=== PATIENT | male | born 1950 | race Caucasian/White ===

== ENCOUNTER 2016-10-06 22:45 | Observation (INO) | payer BC ==
[2016-10-06 22:51] VITALS: BMI 37.5
[2016-10-06] MEDS ORDERED: morphine CARPU-JECT 4 MG/1 ML DISP.SYRIN IVPUSH ONE (23:07)
--- NOTE | 2016-10-06 23:07 | PDOC ---
History of Present Illness - General History Source: Patient Exam Limitations: No Limitations - History of Present Illness Initial Comments: 10/06/16 23:53 The patient is a 65 year old male, with a significant past medical history of testicular cancer, [place], CAD, TIA (05/2011), IDDM, GERD, hypertension, hyperlipidemia, kidney stones, who presents to the emergency department complaining of chest pain that began at approximately 20:00. The patient reports he was sleeping when suddenly the pain woke him up from sleep. At the time which his chest pain began he reports taking 2 aspirin with relief of symptoms. Prior to presentation this evening he started to develop the pain a little more intensely. He describes the pain as a pressure that is localized at the left sternal border, radiating into his left shoulder, but not down his left arm. The patient denies any shortness of breath, palpitations, diaphoresis , lower extremity edema, lightheadedness, or dizziness. The patient rates his pain with inspiration as a 6/10 and with expiration a 4/10. The patient states he has been feeling like he has a cold this entire winter. He reports following up with his Dr. Kurtz(PCP), Dr. Dodson (Rose Grower), and Dr. Paulino ( [facility]) because he has been frequently feeling ill. He currently denies any fever, chills, sore throat, cough, or headache. He denies any nausea , vomiting, diarrhea, or constipation. He denies any recent travel or sick contacts. Allergies: Penicillins, [tryptophan], [aspartame] Past Surgical History: Herniated disc, brain surgery Social History: Non-smoker. Denies alcohol or drug use. PCP: Dr. Kurtz Rose Grower: Dr. Dodson GI: Dr. Paulino <Colton Garcia - Last Filed: 10/06/16 23:59> - General History Source: Patient <Peter Dennison - Last Filed: 10/07/16 01:39> - General Chief Complaint: Chest Pain Stated Complaint: CHEST PAIN Time Seen by Provider: 10/06/16 23:07 Past History <Colton Garcia - Last Filed: 10/06/16 23:59> - Past Medical History Anemia: No Asthma: No Cancer: Yes (TESTICULAR) Cardiac Disorders: Yes ([place]) CVA: Yes (TIA 05/2011) COPD: No CHF: No Dementia: No Diabetes: Yes (IDDM) GI Disorders: Yes (GASTRITIS, SPASTIC COLON, GERD; COLON POLYPS) Disorders: No HTN: Yes Hypercholesterolemia: Yes Kidney Stones: Yes Liver Disease: No Seizures: No Thyroid Disease: No - Surgical History Cardiac Surgery: No Cholecystectomy: Yes Lung Surgery: No Neurologic Surgery: Yes (HERNIATED DISC; BRAIN SURGERY INFANT) Orthopedic Surgery: Yes (KNEE ARTHROSCOPY, RIGHT) - Immunization History Immunization Up to Date: Yes - Psycho/Social/Smoking Cessation Hx Anxiety: No Suicidal Ideation: No Smoking Status: No Smoking History: Never smoked Have you smoked in the past 12 months: No Number of Cigarettes Smoked Daily: 0 If you are a former smoker, when did you quit?: 1980 Cigars Per Day: 0 Information on smoking cessation initiated: No Hx Alcohol Use: No Drug/Substance Use Hx: No Substance Use Type: None Hx Substance Use Treatment: No <Peter Dennison - Last Filed: 10/07/16 01:39> - Past Medical History Allergies/Adverse Reactions: Allergies Allergy/AdvReac Type Severity Reaction Status Date / Time Penicillins Allergy Rash Verified 10/06/16 22:46 ASPARTANE Allergy Severe HEADACHE Uncoded 10/06/16 22:46 TRYPTOPHAN Allergy Intermediate DIARRHEA/VO Uncoded 10/06/16 22:46 MITING Home Medications: Ambulatory Orders Amlodipine Besylate [Norvasc -] 5 mg PO DAILY 09/20/15 Aspirin [ASA -] 81 mg PO DAILY 09/20/15 Atorvastatin Ca [Lipitor -] 40 mg PO HS 09/20/15 Carvedilol 25 mg PO BID 09/20/15 Cholecalciferol (Vitamin D3) [D-2000] 5,000 unit PO DAILY 09/20/15 Gabapentin [Neurontin] 300 mg PO BID 09/20/15 Insulin (Levemir) [Levemir Vial -] 35 units SQ DAILY 09/20/15 Insulin (Levemir) [Levemir Vial -] 50 unit SQ HS 09/20/15 Ramipril 10 mg PO DAILY 09/20/15 Review of Systems - Review of Systems Able to Perform ROS?: Yes Comments:: 10/06/16 23:55 CONSTITUTIONAL: Absent: fever, no chills, no fatigue EYES: Absent: visual changes ENT: Absent: ear pain, no sore throat CARDIOVASCULAR: Present: +chest pain at left sternal border radiating into left shoulder Absent: syncope, palpitations, irregular heart rate, lightheadedness, peripheral edema RESPIRATORY: Absent: cough, shortness of breath, dyspnea with exertion, orthopnea, wheezing, stridor, hemoptysis GI: Absent: abdominal pain, no nausea, no vomiting, no constipation, no diarrhea GENITOURINARY: Absent: dysuria, no frequency, no hematuria MUSKULOSKELETAL: Absent: back pain, no arthralgia, no myalgia SKIN: Absent: rash NEURO: Absent: headache <Garcia,Giomilsy - Last Filed: 10/06/16 23:59> *Physical Exam - Vital Signs Last Vital Signs Temp Pulse Resp BP Pulse Ox 97.6 F 97 H 14 178/88 98 10/06/16 22:47 10/06/16 22:47 10/06/16 22:47 10/06/16 22:47 10/06/16 22:47 - Physical Exam Comments: 10/06/16 23:56 GENERAL: Well developed, well nourished. Awake and alert. No acute distress. Morbidly obese. Appears older than stated age. HEENT: Normocephalic, atraumatic. PERRLA, EOMI. No conjunctival pallor. Sclera are non- icteric. Moist mucous membranes. Oropharynx is clear. NECK: Supple. Full ROM. No JVD. Carotid pulses 2+ and symmetric, without bruits. No thyromegaly. No lymphadenopathy. CARDIOVASCULAR: Regular rate and rhythm. No murmurs, rubs, or gallops. Distal pulses are 2+ and symmetric. PULMONARY: No evidence of respiratory distress. Lungs clear to auscultation bilaterally. No wheezing, rales or rhonchi. ABDOMINAL: Soft. Non-tender. Non-distended. No rebound or guarding. No organomegaly. Normoactive bowel sounds. MUSCULOSKELETAL Normal range of motion at all joints. No bony deformities or tenderness. No CVA tenderness. EXTREMITIES: No cyanosis. No clubbing. No edema. No calf tenderness. SKIN: Warm and dry. Normal capillary refill. No rashes. No jaundice. NEUROLOGICAL: Alert, awake, appropriate. Cranial nerves 2-12 intact. No deficits to light touch and temperature in face, upper extremities and lower extremities. No motor deficits in the in face, upper extremities and lower extremities. Normoreflexic in the upper and lower extremities. Normal speech. Toes are down- going bilaterally. Gait is normal without ataxia. PSYCHIATRIC: Cooperative. Good eye contact. Appropriate mood and affect. <Colton Garcia - Last Filed: 10/06/16 23:59> - Vital Signs Last Vital Signs Temp Pulse Resp BP Pulse Ox 97.6 F 97 H 14 178/88 98 10/06/16 22:47 10/06/16 22:47 10/06/16 22:47 10/06/16 22:47 10/06/16 22:47 <Peter Dennison - Last Filed: 10/07/16 01:39> Heart Score/ECG Review - ECG Impressions Comment:: 10/06/16 23:59 Vent. Rate: 84 bpm IMPRESSION: Normal sinus rhythm. Incomplete right bundle branch block. <Colton Garcia - Last Filed: 10/06/16 23:59> - History History: Moderately suspicious - Electrocardiogram EKG: Non specific repolarization disturbance - Age Age: 45-65 - Risk Factors Risk Factors Heart Score: Yes Hx Hypercholesterolemia, Yes Hx Hypertension, Yes Positive family hx of cardiac disease, Yes Hx Obesity Based on the list above the patient has:: >/=3 risk factors or Hx atherosclerotic disease - Troponin Troponin: </= normal limit - Score Heart Score - Total: 5 <Peter Dennison - Last Filed: 10/07/16 01:39> ED Treatment Course - LABORATORY CBC & Chemistry Diagram: 10/06/16 23:40 10/06/16 23:40 - Medications Given in the ED: ED Medications Discontinued Medications Generic Name Dose Route Start Last Admin Trade Name Freq PRN Reason Stop Dose Admin Morphine Sulfate 4 mg 10/06/16 23:07 10/06/16 23:53 Morphine Injection - IVPUSH 10/06/16 23:08 4 mg ONCE ONE Administration Ondansetron HCl 4 mg 10/06/16 23:08 10/06/16 23:53 Zofran Injection IVPUSH 10/06/16 23:09 4 mg ONCE STA Administration <Colton Garcia - Last Filed: 10/06/16 23:59> - LABORATORY CBC & Chemistry Diagram: 10/06/16 23:40 10/06/16 23:40 <Peter Dennison - Last Filed: 10/07/16 01:39> Medical Decision Making - Medical Decision Making 10/07/16 01:38 Dr. Dennison: The scribe's documentation has been prepared under my direction and personally reviewed by me in its entirery. I confirm that the note above accurately reflects all work, treatment, procedures, and medical decision making performed by me. Patient still has slight discomfort despite negative cardiac enzymes. We'll admit to telemetry <Peter Dennison - Last Filed: 10/07/16 01:39> *DC/Admit/Observation/Transfer - Attestations Scribe Attestion: 10/06/16 23:59 Documentation prepared by Colton Garcia, acting as medical collector for Peter Dennison DO. <Colton Garcia - Last Filed: 10/06/16 23:59> - Discharge Dispostion Admit: Yes <Peter Dennison - Last Filed: 10/07/16 01:39> Diagnosis at time of Disposition: Chest pain Qualifiers: Chest pain type: precordial chest pain Qualified Code(s): R07.2 - Precordial pain - Referrals Referrals: Malcolm Paulino MD [Primary Care Provider] -
[2016-10-06] MEDS ORDERED: ONDANSETRON 4 MG/2 ML VIAL IVPUSH STA (23:08)
[2016-10-06] MEDS ORDERED: morphine CARPU-JECT 4 MG/1 ML DISP.SYRIN ONE (23:29)
[2016-10-06] MEDS ORDERED: ONDANSETRON 4 MG/2 ML VIAL ONE (23:29)
[2016-10-06 23:57] LABS: BASOPHIL 0.7 % (0-2.0); EOSINOPHIL 3.4 % (0-4.5); MCH 28.4 pg (25.7-33.7); MCHC 33.9 g/dl (32.0-35.9); MEAN CELL VOLUME 83.8 fl (80-96); MEAN PLT VOLUME 7.7 fl (7.5-11.1); NEUTROPHILS 65.5 % (42.8-82.8); PLATELET COUNT 261 K/MM3 (134-434); RDW 15.7 % (11.9-15.9); WHITE BLOOD COUNT 11.4 K/mm3 (4.0-10.0)
[2016-10-07 00:19] LABS: INR 1.04 (0.82-1.09); PROTHROMBIN TIME (PATIENT) 11.4 SEC (9.98-11.88)
[2016-10-07 00:22] LABS: ACTIVATED PTT 33.7 SECONDS (26.9-34.4)
[2016-10-07 01:13] LABS: ALBUMIN 3.7 g/dl (3.4-5.0); ANION GAP 10 (8-16); BILIRUBIN,TOTAL 0.5 mg/dL (0.2-1.0); CALCIUM 9.7 mg/dL (8.5-10.1); CO2 30 mmol/L (21-32); CREATININE 1.4 mg/dL (0.7-1.3); GLUCOSE,RANDOM 156 mg/dL (74-106); MAGNESIUM 1.9 mg/dL (1.8-2.4); SGOT/AST 10 U/L (15-37); SGPT/ALT 26 U/L (12-78); TOT PROT 7.3 g/dl (6.4-8.2)
[2016-10-07 01:15] LABS: ALK PHOS 90 U/L (45-117); TROPONIN I < 0.02 ng/ml (0.00-0.05)
--- NOTE | 2016-10-07 02:33 | PN ---
Teaching Attending Note Name of Resident: Cedric Meyer
--- NOTE | 2016-10-07 02:52 | HP ---
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 He states the pain began between 8 and 9pm; he took 2 baby ASA which initially helped the pain, but then the patient got up and went to the bathroom and the pain recurred. He states that initially the pain was 9/10 and is now 2/10. The pain is now in his left side below his axilla. Early it was left sternal border radiating to his left shoulder but not down his arm. He denies palpitations, SOB, nausea or vomiting. 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) c-spine surgery x 4 L spine surgery x 1 R orchiectomy Social History: Smoking: pt denies Alcohol: pt denies Drugs: pt denies current use, did drugs in the 70s Family History: mother late 80s, DM/[place] father age 95 during a 4vCABG 1 sister with thyroid disease Allergies Penicillins Allergy (Verified 10/06/16 22:46) Rash ASPARTANE Allergy (Severe, Uncoded 10/06/16 22:46) HEADACHE TRYPTOPHAN Allergy (Intermediate, Uncoded 10/06/16 22:46) DIARRHEA/VOMITING HOME MEDICATIONS: 3 Medication Instructions Recorded Amlodipine Besylate [Norvasc -] 5 mg PO DAILY 09/20/15 Aspirin [ASA -] 81 mg PO DAILY 09/20/15 Atorvastatin Ca [Lipitor -] 40 mg PO HS 09/20/15 Carvedilol 25 mg PO BID 09/20/15 Cholecalciferol (Vitamin D3) 5,000 unit PO DAILY 09/20/15 [D] Gabapentin [Neurontin] 300 mg PO BID 09/20/15 Insulin (Levemir) [Levemir Vial -] 35 units SQ DAILY 09/20/15 Insulin (Levemir) [Levemir Vial -] 50 unit SQ HS 09/20/15 Ramipril 10 mg PO DAILY 09/20/15 REVIEW OF SYSTEMS CONSTITUTIONAL: Absent: fever, chills, diaphoresis, generalized weakness, malaise, loss of appetite, weight change HEENT: Absent: rhinorrhea, nasal congestion, throat pain, throat swelling, difficulty swallowing, mouth swelling, ear pain, eye pain, visual changes CARDIOVASCULAR: Present: chest pain Absent: syncope, palpitations, irregular heart rate, lightheadedness, peripheral edema RESPIRATORY: Absent: cough, shortness of breath, dyspnea with exertion, orthopnea, wheezing, stridor, hemoptysis GASTROINTESTINAL: Absent: abdominal pain, abdominal distension, nausea, vomiting, diarrhea, constipation, melena, hematochezia GENITOURINARY: Absent: dysuria, frequency, urgency, hesitancy, hematuria, flank pain, genital pain MUSCULOSKELETAL: Absent: myalgia, arthralgia, joint swelling, back pain, neck pain SKIN: Absent: rash, itching, pallor HEMATOLOGIC/IMMUNOLOGIC: Absent: easy bleeding, easy bruising, lymphadenopathy, frequent infections ENDOCRINE: Absent: unexplained weight gain, unexplained weight loss, heat intolerance, cold intolerance NEUROLOGIC: Absent: headache, focal weakness or paresthesias, dizziness, unsteady gait, seizure, mental status changes, bladder or bowel incontinence PSYCHIATRIC: Absent: anxiety, depression, suicidal or homicidal ideation, hallucinations. PHYSICAL EXAMINATION Vital Signs - 24 hr 3 10/06/16 10/06/16 10/07/16 22:47 23:07 00:05 Temperature 97.6 F 98.1 F Pulse Rate 97 H Pulse Rate [ 92 H 89 Left] Respiratory 14 22 20 Rate Blood Pressure 178/88 Blood Pressure 178/65 141/77 [Right Arm] O2 Sat by Pulse 98 98 96 Oximetry (%) 3 10/07/16 10/07/16 10/07/16 00:30 01:38 02:08 Temperature Pulse Rate Pulse Rate [ 89 79 81 Left] Respiratory 20 20 20 Rate Blood Pressure Blood Pressure 164/77 158/63 150/68 [Right Arm] O2 Sat by Pulse 99 99 95 Oximetry (%) GENERAL: Awake, alert, and fully oriented, in no acute distress. HEAD: Normal with no signs of trauma. EYES: Pupils equal, round and reactive to light, extraocular movements intact, sclera anicteric, conjunctiva clear. No lid lag. EARS, NOSE, THROAT: Ears normal, nares patent, oropharynx clear without exudates. Moist mucous membranes. NECK: Normal range of motion, supple without lymphadenopathy, JVD, or masses. LUNGS: Breath sounds equal, clear to auscultation bilaterally. No wheezes, and no crackles. No accessory muscle use. HEART: Regular rate and rhythm, normal S1 and S2 without murmur, rub or gallop. + pain on palpation left chest wall ABDOMEN: Soft, nontender, not distended, normoactive bowel sounds, no guarding, no rebound, no masses. No hepatomegaly or splenomegaly. MUSCULOSKELETAL: Normal range of motion at all joints. No bony deformities or tenderness. No CVA tenderness. UPPER EXTREMITIES: 2+ pulses, warm, well-perfused. No cyanosis. No clubbing. Cap refill <2 seconds. No peripheral edema. LOWER EXTREMITIES: 2+ pulses, warm, well-perfused. No calf tenderness. 1+ edema B/L. NEUROLOGICAL: Cranial nerves II-XII intact. Normal speech. Normal gait. PSYCHIATRIC: Cooperative. Good eye contact. Appropriate mood and affect. SKIN: Warm, dry, normal turgor, no rashes or lesions noted. Laboratory Results - last 24 hr 3 10/06/16 10/06/16 10/06/16 10/06/16 23:40 23:40 23:40 23:54 WBC 11.4 H RBC 3.99 L Hgb 11.3 L Hct 33.4 L MCV 83.8 MCHC 33.9 RDW 15.7 Plt Count 261 MPV 7.7 Neutrophils % 65.5 Lymphocytes % 21.7 D Monocytes % 8.7 Eosinophils % 3.4 Basophils % 0.7 INR 1.04 PTT (Actin FS) 33.7 Sodium 139 Potassium 4.5 Chloride 99 Carbon Dioxide 30 Anion Gap 10 BUN 33 H Creatinine 1.4 H Creat Clearance w eGFR 51.02 Random Glucose 156 H D Calcium 9.7 Magnesium 1.9 Total Bilirubin 0.5 D AST 10 L ALT 26 Alkaline Phosphatase 90 Creatine Kinase 118 Troponin I < 0.02 D B-Natriuretic Peptide 112.51 Total Protein 7.3 Albumin 3.7 Blood Type A POSITIVE Antibody Screen Negative ECG: Sinus rhythm, rate 84, incomplete RBBB, no acute ST/T changes CXR: large heart, no obvious infiltrates or effusions, final read pending. HEART score: 5: moderately suspicious +1, ECG w/ nonspecific repolarization disturbance +1, age 65 +1, >3 risk factors, +2 ASSESSMENT/PLAN: 65yM with PMH [place], 4VCABG, HTN, HLD, TIA, DM2, hemorrhoids, colon polyps, spastic colon, testicular CA, kidney stones presented with chest pain. He is being admitted for observation and further workup. Chest pain r/o ACS - first troponin negative, trend x 2 more - recently had an echo at [facility], defer same at present - Cardiology consult - took ASA, beta melvin at home HTN - cont home medications - pt states he no longer takes ramipril. 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 Visit type - Emergency Visit Emergency Visit: Yes ED Registration Date: 10/07/16 Care time: The patient presented to the Emergency Department on the above date and was hospitalized for further evaluation of their emergent condition. - New Patient This patient is new to me today: Yes Date on this admission: 10/07/16 - Critical Care Critical Care patient: No
[2016-10-07 04:43] VITALS: TEMP 97.8
[2016-10-07] MEDS ORDERED: INSULIN DETEMIR 100 UNITS/ML MDV SQ SCH ×4 (07:00→22:00)
[2016-10-07 08:18] LABS: BASOPHIL 0.6 % (0-2.0); EOSINOPHIL 4.1 % (0-4.5); MCH 28.7 pg (25.7-33.7); MCHC 33.8 g/dl (32.0-35.9); MEAN PLT VOLUME 8.2 fl (7.5-11.1); NEUTROPHILS 62.5 % (42.8-82.8); PLATELET COUNT 261 K/MM3 (134-434); RDW 15.5 % (11.9-15.9); WHITE BLOOD COUNT 12.2 K/mm3 (4.0-10.0)
[2016-10-07 08:52] LABS: ANION GAP 10 (8-16); CALCIUM 9.7 mg/dL (8.5-10.1); CO2 29 mmol/L (21-32); CREATININE 1.5 mg/dL (0.7-1.3); GLUCOSE,RANDOM 167 mg/dL (74-106); PHOSPHOROUS 3.9 mg/dL (2.5-4.9); TROPONIN I < 0.02 ng/ml (0.00-0.05)
--- NOTE | 2016-10-07 09:46 | PN ---
Progress Note (short form) - Note Progress Note: Patient seen and examined Chart reviewed. Case well known to me. Episode of left anterior chest wall apin yesterday evening after awakening from a nap. Went to bathroom and experienced two episodes of pain in left upper anteriorchest radating through to the back and expanding out around the left anterior chest and somewhat down the left arm. Some initial nausea was noted, but no dyspnea, diaphoresis, palpitations or pre-syncope. Arm and chest discomfort not similar to previous cervical spine neuritic symptoms. Came to ER and is admitted for close observation. Initial EKG and and troponins are negative. Currently sitting up in bed w/o new chest discomfort. Selected Entries 10/07/16 10/07/16 03:30 06:00 Temperature 97.8 F Pulse Rate 86 Respiratory 20 Rate Blood Pressure 154/79 O2 Sat by Pulse 97 Oximetry (%) Oxygen Delivery Room Air Method Laboratory Tests 10/06/16 10/06/16 10/07/16 23:40 23:40 06:10 WBC 12.2 H Hgb 11.4 L Hct 33.8 L Plt Count 261 INR 1.04 PTT (Actin FS) 33.7 Sodium Potassium Chloride Carbon Dioxide BUN Creatinine Random Glucose Calcium Phosphorus Creatine Kinase Troponin I B-Natriuretic Peptide 112.51 10/07/16 06:10 WBC Hgb Hct Plt Count INR PTT (Actin FS) Sodium 139 Potassium 4.4 Chloride 100 Carbon Dioxide 29 BUN 34 H Creatinine 1.5 H Random Glucose 167 H Calcium 9.7 Phosphorus 3.9 Creatine Kinase 97 Troponin I < 0.02 B-Natriuretic Peptide chest Clear Cor RRR Abd Soft distended non-tender Central obesity Ext Mild edema Neuro No new focal deficit Assessment and Plan Chest pain syndrome Cardiologic follow-up [facility] H/O [place] CABAG x 4 vessels 09/2015 HTN Stable Review meds HPL Stable DM On coverage here H/O Carotid Endarterectomy C spine surgery x 4 L/S spine surgery x 1 H/O testicular cancer post right orchiectomy, lymphadenectomy and chemotherapy H/o TIA 2010 GERD Hemorrhoid surgery x 3 H/O colonic polyp IBS Renal stone Renal insufficiency Sees Dr Severino Recent d/c Ramipril Unsure of new Rx BUN/Cr 34/1.5 Migraine headaches Obesity Cholecystectomy B/L knee arthroscopies Observe on telemetry Await cardiology opinion regarding further diagnostic testing and/or therapy
[2016-10-07] MEDS ORDERED: ASPIRIN 81 MG CHEWABLE TABLETS PO SCH (10:00)
[2016-10-07] MEDS ORDERED: amLODIPine BESYLATE 5 MG TABLET (FP) PO SCH (10:00)
[2016-10-07] MEDS ORDERED: CHOLECALCIFEROL (VITAMIN D3) 1,000 UNIT TABLET (FP) PO SCH (10:00)
[2016-10-07] MEDS ORDERED: CARVEDILOL 25 MG TABLET (FP) PO SCH (10:00)
[2016-10-07] MEDS ORDERED: GABAPENTIN 300 MG CAPSULE (FP) PO SCH (10:00)
--- NOTE | 2016-10-07 10:07 | EKG ---
Test Reason : Blood Pressure : / mmHG Vent. Rate : 084 BPM Atrial Rate : 084 BPM P-R Int : 190 ms QRS Dur : 114 ms QT Int : 384 ms P-R-T Axes : 062 048 058 degrees QTc Int : 453 ms NORMAL SINUS RHYTHM INCOMPLETE RIGHT BUNDLE BRANCH BLOCK CANNOT RULE OUT ANTERIOR INFARCT , AGE UNDETERMINED ABNORMAL ECG WHEN COMPARED WITH ECG OF 21-SEP-2015 07:34, FUSION COMPLEXES ARE NO LONGER PRESENT PREMATURE VENTRICULAR COMPLEXES ARE NO LONGER PRESENT INCOMPLETE RIGHT BUNDLE BRANCH BLOCK IS NOW PRESENT Confirmed by ANDREA GORDON MD ([id number]) on 10/07/2016 10:07:02 AM Referred By: Confirmed By:ANDREA GORDON MD
[2016-10-07 11:10] LABS: URINE APPEARANCE CLEAR; URINE BILIRUBIN NEGATIVE (NEGATIVE); URINE BLOOD NEGATIVE (NEGATIVE); URINE COLOR YELLOW; URINE GLUCOSE (UA) NEGATIVE (NEGATIVE); URINE KETONE NEGATIVE (NEGATIVE); URINE LEUK ESTERASE NEGATIVE (NEGATIVE); URINE NITRITE NEGATIVE (NEGATIVE); URINE UROBILINOGEN NEGATIVE E.U./dl (0.2-1.0)
[2016-10-07 11:20] LABS: URINE PROTEIN 3+ (NEGATIVE)
[2016-10-07 11:38] LABS: GRANULAR CASTS 2 /lpf; URINE HYALINE CAST 38 /lpf; URINE MUCUS RARE; URINE RBC 2 /hpf (0-3); URINE WBC 2 /hpf (3-5)
--- NOTE | 2016-10-07 11:52 | CON.CARD ---
Cardiology Consult (text) - Consultation Consultation Note: Chief Complaint: cp History of Present Illness: 65 yo male here with cp. Has hx cad with nstemi 09/2015 and cath with severe dz so had cabgx4 at [facility] . Has been following with dr mckinney for cardio. Last night took a nap and then woke up and was walking inside and noticed sharp chest pain left chest, like a pencil stabbing him in one spot. Was severe so took asa and resolved. No associated sxs. No sob, palps, dizzy, loc, pnd, orthopnea. Cp returned later that night so came to ER. CP now resolved. Different sx then when had nstemi last year. Current cp sometimes worsened by deep breaths. PMH/PSH: HTN DM bleeding hemorrhoids cad/mi/cabg HPL fatty liver TIA 2000 CEA 2007 ckd remote ex-cig chronic c-spine disc dz/surgeries, L-spine dz/surgery--chronic pain OA with mult prior knee surgeries diverticulosis nephrolithiasis testicular Ca s/p chemo MONICO (mild-moderate 03/04 study) - Alcohol/Substance Use Hx Alcohol Use: No - Smoking History Smoking history: Never smoked Have you smoked in the past 12 months: No Aproximately how many cigarettes per day: 0 If you are a former smoker, when did you quit?: 1980 Home Medications - Allergies Allergies Allergy/AdvReac Type Severity Reaction Status Date / Time Penicillins Allergy Rash Verified 10/06/16 22:46 ASPARTANE Allergy Severe HEADACHE Uncoded 10/06/16 22:46 TRYPTOPHAN Allergy Intermediate DIARRHEA/VO Uncoded 10/06/16 22:46 MITING - Home Medications Home Medications Medication Instructions Recorded Amlodipine Besylate [Norvasc -] 5 mg PO DAILY 09/20/15 Aspirin [ASA -] 81 mg PO DAILY 09/20/15 Atorvastatin Ca [Lipitor -] 40 mg PO HS 09/20/15 Carvedilol 25 mg PO BID 09/20/15 Cholecalciferol (Vitamin D3) 5,000 unit PO DAILY 09/20/15 [D-1999] Gabapentin [Neurontin] 300 mg PO BID 09/20/15 Insulin (Levemir) [Levemir Vial -] 35 units SQ DAILY 09/20/15 Insulin (Levemir) [Levemir Vial -] 50 unit SQ HS 09/20/15 Ramipril 10 mg PO DAILY 09/20/15 Family Disease History - Family Disease History Family History: Denies (no cmp) Review of Systems - Review of Systems Constitutional: denies: Chills, Fever Eyes: denies: Eye Pain HENT: denies: Nasal Congestion Neck: denies: Stiffness Cardiovascular: denies: Palpitations Respiratory: denies: Orthopnea, PND Gastrointestinal: denies: Diarrhea, Rectal Bleeding Genitourinary: denies: Burning, Hematuria Musculoskeletal: denies: Muscle Pain Integumentary: denies: Rash Neurological: denies: Numbness, Seizure, Syncope Endocrine: denies: Excessive Sweating Hematology/Lymphatic: denies: Excessive Bleeding Vital Signs: Vital Signs Period Temp Pulse Resp BP Sys/Guo Pulse Ox Last 24 Hr 97.6 F-98.1 F 79-97 14-22 141-178/63-88 95-99 Constitutional: Yes: No Distress, Obese Eyes: No: Sclera Icterus HENT: No: Nasal Congestion Respiratory: Yes: CTA Bilaterally. No: Accessory Muscle Use, Rales, Wheezes Gastrointestinal: Yes: Normal Bowel Sounds. No: Distention, Hepatomegaly, Palpable Mass, Tenderness Cardiovascular: Yes: Regular Rate and Rhythm, +chest wall tenderness JVD: No Carotid Bruit: No PMI: Non-Displaced Heart Sounds: Yes: S1, S2. No: Gallop Murmur: No: Systolic Murmur, Diastolic Murmur Musculoskeletal: Yes: Other (No kyphosis) Extremities: No: Cool Edema: Yes (trace pretib) Peripheral Pulses: 2+ Left Carotid, 2+ Right Carotid, 2+ Left Doralis Pedis, 2+ Right Dorsalis Pedis Integumentary: No: Jaundice diaphoresis Neurological: Yes: Alert, Oriented (x3) Psychiatric: No: Agitated - Other Data Labs, Other Data: Laboratory Last Values WBC 12.2 K/mm3 (4.0-10.0) H 10/07/16 06:10 RBC 3.98 M/mm3 (4.00-5.60) L 10/07/16 06:10 Hgb 11.4 GM/dL (11.7-16.9) L 10/07/16 06:10 Hct 33.8 % (35.4-49) L 10/07/16 06:10 MCV 85.0 fl (80-96) 10/07/16 06:10 MCHC 33.8 g/dl (32.0-35.9) 10/07/16 06:10 RDW 15.5 % (11.9-15.9) 10/07/16 06:10 Plt Count 261 K/MM3 (134-434) 10/07/16 06:10 MPV 8.2 fl (7.5-11.1) 10/07/16 06:10 Neutrophils % 62.5 % (42.8-82.8) 10/07/16 06:10 Lymphocytes % 25.2 % (8-40) 10/07/16 06:10 Monocytes % 7.6 % (3.8-10.2) 10/07/16 06:10 Eosinophils % 4.1 % (0-4.5) 10/07/16 06:10 Basophils % 0.6 % (0-2.0) 10/07/16 06:10 INR 1.04 (0.82-1.09) 10/06/16 23:40 PTT (Actin FS) 33.7 SECONDS (26.9-34.4) 10/06/16 23:40 Sodium 139 mmol/L (136-145) 10/07/16 06:10 Potassium 4.4 mmol/L (3.5-5.1) 10/07/16 06:10 Chloride 100 mmol/L (98-107) 10/07/16 06:10 Carbon Dioxide 29 mmol/L (21-32) 10/07/16 06:10 Anion Gap 10 (8-16) 10/07/16 06:10 BUN 34 mg/dL (7-18) H 10/07/16 06:10 Creatinine 1.5 mg/dL (0.7-1.3) H 10/07/16 06:10 Creat Clearance w eGFR 51.02 (>60) 10/06/16 23:40 POC Glucometer 169 UNITS (()) 10/07/16 10:20 Random Glucose 167 mg/dL (74-106) H 10/07/16 06:10 Calcium 9.7 mg/dL (8.5-10.1) 10/07/16 06:10 Phosphorus 3.9 mg/dL (2.5-4.9) 10/07/16 06:10 Magnesium 1.9 mg/dL (1.8-2.4) 10/06/16 23:40 Total Bilirubin 0.5 mg/dL (0.2-1.0) D 10/06/16 23:40 AST 10 U/L (15-37) L 10/06/16 23:40 ALT 26 U/L (12-78) 10/06/16 23:40 Alkaline Phosphatase 90 U/L (45-117) 10/06/16 23:40 Creatine Kinase 97 IU/L (39-308) 10/07/16 06:10 Troponin I < 0.02 ng/ml (0.00-0.05) 10/07/16 06:10 B-Natriuretic Peptide 112.51 pg/ml (5-125) 10/06/16 23:40 Total Protein 7.3 g/dl (6.4-8.2) 10/06/16 23:40 Albumin 3.7 g/dl (3.4-5.0) 10/06/16 23:40 Urine Color Yellow 10/07/16 10:48 Urine Appearance Clear 10/07/16 10:48 Urine pH 5.0 (5.0-8.0) 10/07/16 10:48 Ur Specific [place] 1.018 (1.001-1.035) 10/07/16 10:48 Urine Protein 3+ (NEGATIVE) H 10/07/16 10:48 Urine Glucose (UA) Negative (NEGATIVE) 10/07/16 10:48 Urine Ketones Negative (NEGATIVE) 10/07/16 10:48 Urine Blood Negative (NEGATIVE) 10/07/16 10:48 Urine Nitrite Negative (NEGATIVE) 10/07/16 10:48 Urine Bilirubin Negative (NEGATIVE) 10/07/16 10:48 Urine Urobilinogen Negative E.U./dl (0.2-1.0) 10/07/16 10:48 Ur Leukocyte Esterase Negative (NEGATIVE) 10/07/16 10:48 Urine RBC 2 /hpf (0-3) 10/07/16 10:48 Urine WBC 2 /hpf (3-5) 10/07/16 10:48 Hyaline Casts 38 /lpf 10/07/16 10:48 Granular Casts 2 /lpf 10/07/16 10:48 Urine Mucus Rare 02/17/17 10:48 Blood Type A POSITIVE 10/06/16 23:54 Antibody Screen Negative 10/06/16 23:54 ecg 10/06/16: sr, nl intervals, IRBBB, no ischemic changes cxr: clear lungs tele: sr Echo 09/2015: nl LVEF, no RWMAs (normal RV, normal valve fxn) mibi 01/2016 ([facility]): TDS, "probably normal" Assessment/Plan cp: -atypical cp, different than prior IL, has msk features -ce's neg here, cp resolved, ecg w/o ischemic changes -prior stress test was TDS, read as "probably normal", but this current cp is different quality than before -given his cad hx and new cp will check mibi today. If benign then ok for dc from cardiac pov. cad s/p nstemi, cabg: -as above -normal lvef -cont home bb, ccb, statin, asa HTN: -cont home meds hld: -cont statin ckd: -cr at baseline
[2016-10-07] MEDS: INSULIN SLIDING SCALE (NOVOLOG) 1 VIAL SQ SCH ×2 (11:58→17:02)
[2016-10-07] MEDS ORDERED: DIPYRIDAMOLE STRESS TEST 50 MG in DEXTROSE 5%-WATER - 40 ML IVPB ONE (13:15)
[2016-10-07 15:28] VITALS: BP 120/54; PULSE 87
[2016-10-07] MEDS ORDERED: OMEGA-3 ACID ETHYL ESTERS (FATTY-ACIDS) 1 GM CAPSULE (FP) PO SCH (22:00)
[2016-10-07] MEDS ORDERED: ATORVASTATIN CA 40 MG TABLET (FP) PO SCH (22:00)
== END 2016-10-07 17:39 | disposition home or self-care (01) ==
LOC: JER 22:45 → JERBED 10-07 01:46 → INTOOBSV 10-07 01:46 → J4W 10-07 04:23
PROVIDERS: ADMIT Internal Medicine; ATTEND Internal Medicine
DX: R07.89 Other chest pain (principal); I25.10 Atherosclerotic heart disease of native coronary artery without angina pectoris; K21.9 Gastro-esophageal reflux disease without esophagitis; E78.5 Hyperlipidemia, unspecified; I25.2 Old myocardial infarction; Z86.73 Personal history of transient ischemic attack (TIA), and cerebral infarction without residual deficits; Z88.0 Allergy status to penicillin; Z79.4 Long term (current) use of insulin; E11.9 Type 2 diabetes mellitus without complications; K58.9 Irritable bowel syndrome, unspecified; E66.9 Obesity, unspecified; G43.909 Migraine, unspecified, not intractable, without status migrainosus; K76.0 Fatty (change of) liver, not elsewhere classified; I12.9 Hypertensive chronic kidney disease with stage 1 through stage 4 chronic kidney disease, or unspecified chronic kidney disease; N18.9 Chronic kidney disease, unspecified; Z68.37 Body mass index [BMI] 37.0-37.9, adult
CPT/HCPCS: 36415; 71020-TC; 78452-TC; 80048; 80053; 81003; 81015; 82550; 83735; 83880; 84100; 84484; 85025; 85610; 85730; 86850; 86900; 86901; 93005; 93010; 93017; 99285-25; A9502; G0378; J1245

== ENCOUNTER 2017-02-14 23:30 | Observation (INO) | payer BC, OTHER ==
--- NOTE | 2017-02-15 00:44 | PDOC ---
History of Present Illness - General Chief Complaint: Chest Pain Stated Complaint: CHEST PAIN Time Seen by Provider: 02/14/17 23:56 History Source: Patient Exam Limitations: No Limitations - History of Present Illness Initial Comments: 02/15/17 00:44 66yo Male patient w/ PmHx: [place], CAD, TIA (2011), CABG (2016), IDDM, GERD, HTN, HLD, Renal Colic presents to ED c/o chest pain that began at 11pm last night. Patient states he was removing his nitroglycerin patch around 9pm when symptoms began. He states taking 0.4 SL Nitro x 1 with no relief. Patient report 5/10 chest pain with 2/10 left arm pain that continues. He denies n/v/d, back pain, fever, cough, congestion, diff breathing, or any other complaints at this time. Dr. Dodson (Cardiology) Dr. Kurtz (PCP) Dr. Paulino (Gastroenterology) Presenting Symptoms: Chest Pain Timing/Duration: reports: constant Severity/Quality: reports: mild. denies: moderate, severe, aching, burning, dull, ingestion, pressure, sharp, stabbing, tearing, tightness, other Location: reports: substernal. denies: central, epigastric, shoulder, back, abdomen, other Chest Pain Radiation: reports: arms (Left). denies: no radiation, jaw, neck, shoulders, back, sternal notch, epigastric, other Activities at Onset: reports: rest. denies: none, exertion, emotional upset, sleep, no specific activity, eating, working, sexual intercourse, other Nitro Today/Relief: Yes: 0.4 mg x 1. No: no nitro taken today, 0.4 mg x 2, 0.4 mg x 3, 0.4 mg x 4, provided by EMS, provided by ED, provided at home, no relief , mild relief, complete relief Past History - Travel Traveled outside of the country in the last 30 days: No Close contact w/someone who was outside of country & ill: No - Past Medical History Allergies/Adverse Reactions: Allergies Allergy/AdvReac Type Severity Reaction Status Date / Time Penicillins Allergy Rash Verified 02/14/17 23:39 sumatriptan [From Imitrex] Allergy Verified 02/14/17 23:40 sumatriptan succinate Allergy Verified 02/14/17 23:40 [From Imitrex] ASPARTANE Allergy Severe HEADACHE Uncoded 02/14/17 23:39 TRYPTOPHAN Allergy Intermediate DIARRHEA/VO Uncoded 02/14/17 23:39 MITING Home Medications: Ambulatory Orders Amlodipine Besylate [Norvasc -] 10 mg PO DAILY 09/20/15 Aspirin [ASA -] 81 mg PO DAILY 09/20/15 Atorvastatin Ca [Lipitor] 40 mg PO HS 09/20/15 Carvedilol 6.25 mg PO BID 09/20/15 Cholecalciferol (Vitamin D3) [D3-2000] 5,000 unit PO DAILY 09/20/15 Gabapentin [Neurontin] 300 mg PO DAILY 09/20/15 Insulin (Levemir) [Levemir Vial] 64 unit SQ BID 09/20/15 Nitroglycerin Sublingual [Nitrostat -] 0.4 mg SL [id number] PRN #30 tab 10/07/16 [place]-3 Acid Ethyl Esters [Lovaza -] 2 gm PO HS cap 10/07/16 Exenatide [Byetta] 10 mcg SQ BID 02/14/17 Furosemide [Lasix -] 40 mg PO BID 02/14/17 Losartan Potassium [Cozaar -] 25 mg PO DAILY 02/14/17 Metformin HCl [Glucophage -] 500 mg PO BID 02/14/17 Nortriptyline HCl [Pamelor -] 50 mg PO HS 02/14/17 Oxycodone HCl [Roxicodone -] 10 mg PO Q4H PRN 02/14/17 Anemia: No Asthma: No Cancer: Yes (TESTICULAR) Cardiac Disorders: Yes ([place]) CVA: Yes (TIA 05/2011) COPD: No CHF: No Dementia: No Diabetes: Yes (IDDM) GI Disorders: Yes (GASTRITIS, SPASTIC COLON, GERD; COLON POLYPS) Disorders: No HTN: Yes Hypercholesterolemia: Yes Kidney Stones: Yes Liver Disease: No Seizures: No Thyroid Disease: No - Surgical History Cardiac Surgery: No Cholecystectomy: Yes Lung Surgery: No Neurologic Surgery: Yes (HERNIATED DISC; BRAIN SURGERY INFANT) Orthopedic Surgery: Yes (KNEE ARTHROSCOPY, RIGHT) - Immunization History Immunization Up to Date: Yes - Psycho/Social/Smoking Cessation Hx Anxiety: No Suicidal Ideation: No Smoking Status: No Smoking History: Never smoked Have you smoked in the past 12 months: No Number of Cigarettes Smoked Daily: 0 If you are a former smoker, when did you quit?: 1981 Cigars Per Day: 0 Information on smoking cessation initiated: No Hx Alcohol Use: No Drug/Substance Use Hx: No Substance Use Type: None Hx Substance Use Treatment: No Cardiac Specific PMH - Complaint Specific PMHX Abdominal Aortic Aneurysm: No Angina: No Cardiac Arrhythmia: No Cardiac Stent: No GERD: No Myocardial Infarction: Yes Pacemaker: No Pulmonary Embolus: No Valvular Heart Disease: No Peripheral Vascular Disease: No Review of Systems - Review of Systems Able to Perform ROS?: Yes Is the patient limited Lao proficient: No Cardiac (ROS): Yes: Chest Pain All Other Systems: Reviewed and Negative *Physical Exam - Vital Signs Last Vital Signs Temp Pulse Resp BP Pulse Ox 98.7 F 82 18 157/59 98 02/14/17 23:33 02/14/17 23:33 02/14/17 23:33 02/14/17 23:33 02/14/17 23:58 - Physical Exam General Appearance: Yes: Nourished, Appropriately Dressed. No: Apparent Distress, Mild Distress, Moderate Distress, Severe Distress Neck: positive: Trachea midline, Supple. negative: Rigid, Stridor, Lymphadenopathy (R), Lymphadenopathy (L), Tender lateral, Tender midline Respiratory/Chest: positive: Lungs Clear, Normal Breath Sounds. negative: Chest Tender, Respiratory Distress, Accessory Muscle Use, Labored Respiration, Rapid RR, Rhonchi, Stridor, Wheezing Cardiovascular: positive: Regular Rhythm, Regular Rate Gastrointestinal/Abdominal: positive: Normal Bowel Sounds, Soft, Distended. negative: Tender, Guarding, Rebound, Tenderness Musculoskeletal: positive: Normal Inspection. negative: CVA Tenderness, Vertebral Tenderness Extremity: positive: Normal Capillary Refill, Normal Inspection, Normal Range of Motion. negative: Pedal Edema, Swelling, Calf Tenderness, Erythema, Inflammation Integumentary: positive: Normal Color, Dry, Warm Neurologic: positive: wood repatcher II-XII NML intact, Fully Oriented, Alert, Normal Mood/ Affect, Normal Response, Motor Strength /5 ED Treatment Course - LABORATORY CBC & Chemistry Diagram: 02/15/17 00:57 02/15/17 00:57 - ADDITIONAL ORDERS Additional order review: Laboratory Results 02/15/17 02/15/17 00:57 00:57 INR 1.05 PTT (Actin FS) 33.7 Sodium 142 Potassium 4.4 Chloride 103 Carbon Dioxide 30 Anion Gap 9 BUN 30 H Creatinine 1.3 Creat Clearance w eGFR 55.40 Random Glucose 106 D Calcium 8.7 Total Bilirubin 0.4 D AST 18 D ALT 23 D Alkaline Phosphatase 89 Creatine Kinase 163 D CK-MB (CK-2) 1.753 Troponin I < 0.02 B-Natriuretic Peptide 285.48 H Total Protein 6.7 Albumin 3.3 L 02/15/17 00:57 RBC 3.48 L MCV 83.9 MCHC 33.1 RDW 15.7 MPV 8.1 Neutrophils % 71.5 Lymphocytes % 17.9 D Monocytes % 7.3 Eosinophils % 2.1 Basophils % 1.2 - RADIOLOGY Radiology Studies Ordered: Category Date Time Status CHEST X-RAY PORTABLE* [RAD] Stat Radiology 02/15/17 00:16 Taken *DC/Admit/Observation/Transfer Diagnosis at time of Disposition: Chest pain Qualifiers: Chest pain type: other chest pain Qualified Code(s): R07.89 - Other chest pain ; R07.8 - Other chest pain - Discharge Dispostion Condition at time of disposition: Fair Admit: Yes
[2017-02-15 01:04] LABS: BASOPHIL 1.2 % (0-2.0); EOSINOPHIL 2.1 % (0-4.5); MCH 27.7 pg (25.7-33.7); MCHC 33.1 g/dl (32.0-35.9); MEAN CELL VOLUME 83.9 fl (80-96); MEAN PLT VOLUME 8.1 fl (7.5-11.1); NEUTROPHILS 71.5 % (42.8-82.8); PLATELET COUNT 274 K/MM3 (134-434); RDW 15.7 % (11.9-15.9); WHITE BLOOD COUNT 15.7 K/mm3 (4.0-10.0)
[2017-02-15 01:27] LABS: INR 1.05 (0.82-1.09); PROTHROMBIN TIME (PATIENT) 11.6 SEC (9.98-11.88)
[2017-02-15 01:29] LABS: ACTIVATED PTT 33.7 SECONDS (26.9-34.4)
[2017-02-15 01:40] LABS: ALBUMIN 3.3 g/dl (3.4-5.0); ANION GAP 9 (8-16); BILIRUBIN,TOTAL 0.4 mg/dL (0.2-1.0); CALCIUM 8.7 mg/dL (8.5-10.1); CO2 30 mmol/L (21-32); CREATININE 1.3 mg/dL (0.7-1.3); GLUCOSE,RANDOM 106 mg/dL (74-106); SGOT/AST 18 U/L (15-37); SGPT/ALT 23 U/L (12-78); TOT PROT 6.7 g/dl (6.4-8.2)
[2017-02-15 01:43] LABS: ALK PHOS 89 U/L (45-117); TROPONIN I < 0.02 ng/ml (0.00-0.05)
[2017-02-15 02:39] LABS: URINE APPEARANCE CLEAR; URINE BILIRUBIN NEGATIVE (NEGATIVE); URINE BLOOD NEGATIVE (NEGATIVE); URINE COLOR YELLOW; URINE GLUCOSE (UA) NEGATIVE (NEGATIVE); URINE KETONE NEGATIVE (NEGATIVE); URINE LEUK ESTERASE NEGATIVE (NEGATIVE); URINE NITRITE NEGATIVE (NEGATIVE); URINE UROBILINOGEN NEGATIVE E.U./dl (0.2-1.0)
[2017-02-15 02:41] LABS: URINE PROTEIN 3+ (NEGATIVE)
[2017-02-15] MEDS ORDERED: NITROGLYCERIN SUBLINGUAL 1/150 0.4 MG TAB SL PRN (02:43)
[2017-02-15] MEDS ORDERED: oxyCODONE HCL 5 MG TABLET PO PRN (02:43)
[2017-02-15 03:11] LABS: URINE BACTERIA MANY /hpf (NONE SEEN); URINE MUCUS RARE; URINE RBC 3 /hpf (0-3); URINE WBC 5 /hpf (3-5)
[2017-02-15 05:59] VITALS: BMI 38.5
[2017-02-15] MEDS ORDERED: metFORMIN HCL 500 MG TABLET (FP) PO SCH (07:00)
[2017-02-15] MEDS ORDERED: INSULIN DETEMIR 100 UNITS/ML MDV SQ SCH (07:00)
[2017-02-15 09:43] LABS: TROPONIN I < 0.02 ng/ml (0.00-0.05)
[2017-02-15] MEDS ORDERED: LOSARTAN POTASSIUM 25 MG TABLET PO SCH (10:00)
[2017-02-15] MEDS ORDERED: EXENATIDE 10 MCG SQ SCH (10:00)
[2017-02-15] MEDS ORDERED: CHOLECALCIFEROL (VITAMIN D3) 1,000 UNIT TABLET (FP) PO SCH (10:00)
[2017-02-15] MEDS ORDERED: FUROSEMIDE 40 MG TABLET (FP) PO SCH (10:00)
[2017-02-15] MEDS ORDERED: ASPIRIN 81 MG CHEWABLE TABLETS PO SCH (10:00)
[2017-02-15] MEDS ORDERED: GABAPENTIN 300 MG CAPSULE (FP) PO SCH (10:00)
[2017-02-15] MEDS ORDERED: CARVEDILOL 6.25 MG TABLET (FP) PO SCH (10:00)
[2017-02-15] MEDS ORDERED: amLODIPine BESYLATE 10 MG TABLET (FP) PO SCH (10:00)
--- NOTE | 2017-02-15 11:07 | HP ---
Admitting History and Physical - Primary Care Physician PCP: German Kurtz - Admission Chief Complaint: I was having chest pain History of Present Illness: Mr Carolina is a very pleasant 66 year old male who comes in with chest pain. He says he was doing well and in his normal state of health. He is on nitro patches during the day and he takes them off at night. Yesterday he took off his nitro patch at 9, which is his normal, and went to bed. Around 11 he woke up and went to the bathroom. He developed sharp pain in his left chest that radiated down his arm. He says the pain was about 5-6/10. It felt just like the pain he had with his last heart attack. He denies lightheadedness, dizziness, shortness of breath, palpitation, fluttering, or nausea associated with it. He took a SL nitro and this did not relieve the pain. Because of that he came in for further evaluation. Currently he says he feels fine, his chest pain has resolved. He is having left leg pain but this is chronic. He has not had fevers , chills, abdominal pain, diarrhea, constipation, difficulty or pain on urination, or edema. 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 Cardiovascular: Yes: AFIB, HTN, Other (TALAT) Gastrointestinal: Yes: Irritable Bowel Disease Renal/: Yes: Renal Inusuff Heme/Onc: Yes: Other (lymphoma, testicular cancer) Endocrine: Yes: Diabetes Mellitus - Past Surgical History Past Surgical History: Yes: Cholecystectomy - Smoking History Smoking history: Former smoker Have you smoked in the past 12 months: No Aproximately how many cigarettes per day: 0 If you are a former smoker, when did you quit?: 1980 - Alcohol/Substance Use Hx Alcohol Use: No History of Substance Use: reports: None - Social History ADL: Independent History of Recent Travel: No Home Medications - Allergies Allergies/Adverse Reactions: Allergies Allergy/AdvReac Type Severity Reaction Status Date / Time Penicillins Allergy Rash Verified 02/14/17 23:39 sumatriptan [From Imitrex] Allergy Verified 02/14/17 23:40 sumatriptan succinate Allergy Verified 02/14/17 23:40 [From Imitrex] ASPARTANE Allergy Severe HEADACHE Uncoded 02/14/17 23:39 TRYPTOPHAN Allergy Intermediate DIARRHEA/VO Uncoded 02/14/17 23:39 MITING - Home Medications Home Medications: Ambulatory Orders Amlodipine Besylate [Norvasc -] 10 mg PO DAILY 09/20/15 Aspirin [ASA -] 81 mg PO DAILY 09/20/15 Atorvastatin Ca [Lipitor] 40 mg PO HS 09/20/15 Carvedilol 6.25 mg PO BID 09/20/15 Cholecalciferol (Vitamin D3) [D3-2000] 5,000 unit PO DAILY 09/20/15 Gabapentin [Neurontin] 300 mg PO DAILY 09/20/15 Insulin (Levemir) [Levemir Vial] 64 unit SQ BID 09/20/15 Nitroglycerin Sublingual [Nitrostat -] 0.4 mg SL [id number] PRN #30 tab 10/07/16 [place]-3 Acid Ethyl Esters [Lovaza -] 2 gm PO HS cap 10/07/16 Exenatide [Byetta] 10 mcg SQ BID 02/14/17 Furosemide [Lasix -] 40 mg PO BID 02/14/17 Losartan Potassium [Cozaar -] 25 mg PO DAILY 02/14/17 Metformin HCl [Glucophage -] 500 mg PO BID 02/14/17 Nortriptyline HCl [Pamelor -] 50 mg PO HS 02/14/17 Oxycodone HCl [Roxicodone -] 10 mg PO Q4H PRN 02/14/17 Family Disease History - Family Disease History Family Disease History: Diabetes: Mother, Heart Disease: Father Review of Systems Findings/Remarks: full review of systems obtained, as per HPI and otherwise negative Physical Examination Vital Signs: Vital Signs Temperature 98.2 F 02/15/17 05:52 Pulse Rate 72 02/15/17 05:52 Respiratory Rate 20 02/15/17 05:52 Blood Pressure 138/54 02/15/17 05:52 O2 Sat by Pulse Oximetry (%) 98 02/15/17 05:52 Constitutional: Yes: No Distress, Calm, Obese Eyes: Yes: Conjunctiva Clear, EOM Intact HENT: Yes: Atraumatic, Normocephalic Cardiovascular: Yes: Regular Rate and Rhythm. No: Gallop, Murmur, Rub Respiratory: Yes: Regular, CTA Bilaterally. No: Rales, Rhonchi, Wheezes Gastrointestinal: Yes: Normal Bowel Sounds, Soft. No: Distention, Tenderness Extremities: Yes: WNL Edema: No Labs: Laboratory Results - last 24 hr 02/15/17 02/15/17 02/15/17 00:57 00:57 00:57 WBC 15.7 H RBC 3.48 L Hgb 9.7 L Hct 29.2 L MCV 83.9 MCHC 33.1 RDW 15.7 Plt Count 274 MPV 8.1 Neutrophils % 71.5 Lymphocytes % 17.9 D Monocytes % 7.3 Eosinophils % 2.1 Basophils % 1.2 INR 1.05 PTT (Actin FS) 33.7 Sodium 142 Potassium 4.4 Chloride 103 Carbon Dioxide 30 Anion Gap 9 BUN 30 H Creatinine 1.3 Creat Clearance w eGFR 55.40 POC Glucometer Random Glucose 106 D Calcium 8.7 Total Bilirubin 0.4 D AST 18 D ALT 23 D Alkaline Phosphatase 89 Creatine Kinase 163 D Creatine Kinase Index 1.1 CK-MB (CK-2) 1.753 CK-MB (CK-2) Rel Index Troponin I < 0.02 B-Natriuretic Peptide 285.48 H Total Protein 6.7 Albumin 3.3 L Urine Color Urine Appearance Urine pH Ur Specific [place] Urine Protein Urine Glucose (UA) Urine Ketones Urine Blood Urine Nitrite Urine Bilirubin Urine Urobilinogen Ur Leukocyte Esterase Urine RBC Urine WBC Urine Bacteria Urine Mucus 02/15/17 02/15/17 02/15/17 00:57 02:20 06:01 WBC RBC Hgb Hct MCV MCHC RDW Plt Count MPV Neutrophils % Lymphocytes % Monocytes % Eosinophils % Basophils % INR PTT (Actin FS) Sodium Potassium Chloride Carbon Dioxide Anion Gap BUN Creatinine Creat Clearance w eGFR POC Glucometer 149 Random Glucose Calcium Total Bilirubin AST ALT Alkaline Phosphatase Creatine Kinase Creatine Kinase Index CK-MB (CK-2) CK-MB (CK-2) Rel Index Cancelled Troponin I B-Natriuretic Peptide Total Protein Albumin Urine Color Yellow Urine Appearance Clear Urine pH 5.0 Ur Specific [place] 1.025 Urine Protein 3+ H Urine Glucose (UA) Negative Urine Ketones Negative Urine Blood Negative Urine Nitrite Negative Urine Bilirubin Negative Urine Urobilinogen Negative Ur Leukocyte Esterase Negative Urine RBC 3 Urine WBC 5 Urine Bacteria Many Urine Mucus Rare 02/15/17 08:23 WBC RBC Hgb Hct MCV MCHC RDW Plt Count MPV Neutrophils % Lymphocytes % Monocytes % Eosinophils % Basophils % INR PTT (Actin FS) Sodium Potassium Chloride Carbon Dioxide Anion Gap BUN Creatinine Creat Clearance w eGFR POC Glucometer Random Glucose Calcium Total Bilirubin AST ALT Alkaline Phosphatase Creatine Kinase 117 Creatine Kinase Index CK-MB (CK-2) CK-MB (CK-2) Rel Index Troponin I < 0.02 B-Natriuretic Peptide Total Protein Albumin Urine Color Urine Appearance Urine pH Ur Specific [place] Urine Protein Urine Glucose (UA) Urine Ketones Urine Blood Urine Nitrite Urine Bilirubin Urine Urobilinogen Ur Leukocyte Esterase Urine RBC Urine WBC Urine Bacteria Urine Mucus Imaging - Results Chest X-ray: Report Reviewed, Image Reviewed Problem List - Problems (1) Chest pain Assessment/Plan: -patient had chest pain similar to previous ACS pain -admitted under observation -cardiac enzymes x2 negative, awaiting third set -continue medical management for CAD -cardiology consulted, to evaluate and determine if stress test is appropriate Code(s): R07.9 - CHEST PAIN, UNSPECIFIED Qualifiers: Chest pain type: other chest pain Qualified Code(s): R07.89 - Other chest pain; R07.8 - Other chest pain (2) HTN (hypertension) Assessment/Plan: -continue losartan, coreg, and amlodipine -controlled this am -monitor Code(s): I10 - ESSENTIAL (PRIMARY) HYPERTENSION (3) Hyperlipidemia Assessment/Plan: -continue lovaza and lipitor Code(s): E78.5 - HYPERLIPIDEMIA, UNSPECIFIED (4) Leukocytosis Assessment/Plan: -chronic -monitor -no signs of infection, no current need for antibiotics Code(s): D72.829 - ELEVATED WHITE BLOOD CELL COUNT, UNSPECIFIED (5) Obesity Assessment/Plan: -outpatient management Code(s): E66.9 - OBESITY, UNSPECIFIED Qualifiers: Obesity type: due to excess calories (6) CAD (coronary artery disease) Assessment/Plan: -with chest pain -continue medical management -cardiology to see -anticoagulation not indicated secondary to normal troponin Code(s): I25.10 - ATHSCL HEART DISEASE OF [place] CORONARY ARTERY W/O ANG PCTRS (7) Diabetes Assessment/Plan: -controlled -continue home regimen -patient requesting regular diet, states artificial sweeteners give migraine -will change to regular diet Code(s): E11.9 - TYPE 2 DIABETES MELLITUS WITHOUT COMPLICATIONS Qualifiers: 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 type: type 2 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 senior care insulin use : with watermelon inspector use
[2017-02-15 11:44] VITALS: BP 180/72; PULSE 80; TEMP 98
--- NOTE | 2017-02-15 12:05 | CON.CARD ---
Cardiology Consult (text) - Consultation Consultation Note: Consultation Note: Chief Complaint: cp History of Present Illness: 66 yo male here with cp. Has hx cad with nstemi 09/2015 and cath with severe dz so had cabgx4 at [facility]. Admitted here 09/2016 with cp, had +mibi and treated medically. Since then has been on nitro patch with no significant anginal sxs or cp until last night when at rest and noticed some sharp pain in left chest. He took one nitro sl but no improvement so came to ER. No sob, palps, dizzy, loc, pnd, orthopnea. Mild chronic le edema stable. This AM feeling well, cp resolved. Has been following with dr mckinney for cardio. PMH/PSH: HTN DM bleeding hemorrhoids cad/mi/cabg HPL fatty liver TIA 2000 CEA 2007 ckd remote ex-cig chronic c-spine disc dz/surgeries, L-spine dz/surgery--chronic pain OA with mult prior knee surgeries diverticulosis nephrolithiasis testicular Ca s/p chemo MONICO (mild-moderate 03/04 study) - Alcohol/Substance Use Hx Alcohol Use: No - Smoking History Smoking history: Never smoked Have you smoked in the past 12 months: No Aproximately how many cigarettes per day: 0 If you are a former smoker, when did you quit?: 1980 Home Medications - Allergies Allergies Allergy/AdvReac Type Severity Reaction Status Date / Time Penicillins Allergy Rash Verified 02/14/17 23:39 sumatriptan [From Imitrex] Allergy Verified 02/14/17 23:40 sumatriptan succinate Allergy Verified 02/14/17 23:40 [From Imitrex] ASPARTANE Allergy Severe HEADACHE Uncoded 02/14/17 23:39 TRYPTOPHAN Allergy Intermediate DIARRHEA/VO Uncoded 02/14/17 23:39 MITING - Home Medications Home Medications Medication Instructions Recorded Amlodipine Besylate [Norvasc -] 10 mg PO DAILY 09/20/15 Aspirin [ASA -] 81 mg PO DAILY 09/20/15 Atorvastatin Ca [Lipitor] 40 mg PO HS 09/20/15 Carvedilol 6.25 mg PO BID 09/20/15 Cholecalciferol (Vitamin D3) 5,000 unit PO DAILY 09/20/15 [D3-2000] Gabapentin [Neurontin] 300 mg PO DAILY 09/20/15 Insulin (Levemir) [Levemir Vial] 64 unit SQ BID 09/20/15 Nitroglycerin Sublingual 0.4 mg SL [id number] PRN #30 tab 10/07/16 [Nitrostat -] [place]-3 Acid Ethyl Esters [Lovaza 2 gm PO HS cap 10/07/16 -] Exenatide [Byetta] 10 mcg SQ BID 02/14/17 Furosemide [Lasix -] 40 mg PO BID 02/14/17 Losartan Potassium [Cozaar -] 25 mg PO DAILY 02/14/17 Metformin HCl [Glucophage -] 500 mg PO BID 02/14/17 Nortriptyline HCl [Pamelor -] 50 mg PO HS 02/14/17 Oxycodone HCl [Roxicodone -] 10 mg PO Q4H PRN 02/14/17 Family Disease History - Family Disease History Family History: Denies (no cmp) Review of Systems - Review of Systems Constitutional: denies: Chills, Fever Eyes: denies: Eye Pain HENT: denies: Nasal Congestion Neck: denies: Stiffness Cardiovascular: denies: Palpitations Respiratory: denies: Orthopnea, PND Gastrointestinal: denies: Diarrhea, Rectal Bleeding Genitourinary: denies: Burning, Hematuria Musculoskeletal: denies: Muscle Pain Integumentary: denies: Rash Neurological: denies: Numbness, Seizure, Syncope Endocrine: denies: Excessive Sweating Hematology/Lymphatic: denies: Excessive Bleeding Vital Signs: Vital Signs Period Temp Pulse Resp BP Sys/Guo Pulse Ox Last 24 Hr 98 F-98.7 F 71-82 17-20 138-180/54-72 98-98 Constitutional: Yes: No Distress, Obese Eyes: No: Sclera Icterus HENT: No: Nasal Congestion Respiratory: Yes: CTA Bilaterally. No: Accessory Muscle Use, Rales, Wheezes Gastrointestinal: Yes: Normal Bowel Sounds. No: Distention, Hepatomegaly, Palpable Mass, Tenderness Cardiovascular: Yes: Regular Rate and Rhythm, +chest wall tenderness JVD: No Carotid Bruit: No PMI: Non-Displaced Heart Sounds: Yes: S1, S2. No: Gallop Murmur: No: Systolic Murmur, Diastolic Murmur Musculoskeletal: Yes: Other (No kyphosis) Extremities: No: Cool Edema: Yes (trace pretib) Peripheral Pulses: 2+ Left Carotid, 2+ Right Carotid, 2+ Left Doralis Pedis, 2+ Right Dorsalis Pedis Integumentary: No: Jaundice diaphoresis Neurological: Yes: Alert, Oriented (x3) Psychiatric: No: Agitated - Other Data Labs, Other Data: Laboratory Last Values WBC 15.7 K/mm3 (4.0-10.0) H 02/15/17 00:57 RBC 3.48 M/mm3 (4.00-5.60) L 02/15/17 00:57 Hgb 9.7 GM/dL (11.7-16.9) L 02/15/17 00:57 Hct 29.2 % (35.4-49) L 02/15/17 00:57 MCV 83.9 fl (80-96) 02/15/17 00:57 MCHC 33.1 g/dl (32.0-35.9) 02/15/17 00:57 RDW 15.7 % (11.9-15.9) 02/15/17 00:57 Plt Count 274 K/MM3 (134-434) 02/15/17 00:57 MPV 8.1 fl (7.5-11.1) 02/15/17 00:57 Neutrophils % 71.5 % (42.8-82.8) 02/15/17 00:57 Lymphocytes % 17.9 % (8-40) D 02/15/17 00:57 Monocytes % 7.3 % (3.8-10.2) 02/15/17 00:57 Eosinophils % 2.1 % (0-4.5) 02/15/17 00:57 Basophils % 1.2 % (0-2.0) 02/15/17 00:57 INR 1.05 (0.82-1.09) 02/15/17 00:57 PTT (Actin FS) 33.7 SECONDS (26.9-34.4) 02/15/17 00:57 Sodium 142 mmol/L (136-145) 02/15/17 00:57 Potassium 4.4 mmol/L (3.5-5.1) 02/15/17 00:57 Chloride 103 mmol/L (98-107) 02/15/17 00:57 Carbon Dioxide 30 mmol/L (21-32) 02/15/17 00:57 Anion Gap 9 (8-16) 02/15/17 00:57 BUN 30 mg/dL (7-18) H 02/15/17 00:57 Creatinine 1.3 mg/dL (0.7-1.3) 02/15/17 00:57 Creat Clearance w eGFR 55.40 (>60) 02/15/17 00:57 POC Glucometer 149 UNITS (()) 02/15/17 11:29 Random Glucose 106 mg/dL (74-106) D 02/15/17 00:57 Calcium 8.7 mg/dL (8.5-10.1) 02/15/17 00:57 Total Bilirubin 0.4 mg/dL (0.2-1.0) D 02/15/17 00:57 AST 18 U/L (15-37) D 02/15/17 00:57 ALT 23 U/L (12-78) D 02/15/17 00:57 Alkaline Phosphatase 89 U/L (45-117) 02/15/17 00:57 Creatine Kinase 117 IU/L (39-308) 02/15/17 08:23 Creatine Kinase Index 1.1 % (0.0-5.0) 02/15/17 00:57 CK-MB (CK-2) 1.753 ng/ml (0.5-3.6) 02/15/17 00:57 CK-MB (CK-2) Rel Index Cancelled 02/15/17 00:57 Troponin I < 0.02 ng/ml (0.00-0.05) 02/15/17 08:23 B-Natriuretic Peptide 285.48 pg/ml (5-125) H 02/15/17 00:57 Total Protein 6.7 g/dl (6.4-8.2) 02/15/17 00:57 Albumin 3.3 g/dl (3.4-5.0) L 02/15/17 00:57 Urine Color Yellow 02/15/17 02:20 Urine Appearance Clear 02/15/17 02:20 Urine pH 5.0 (5.0-8.0) 02/15/17 02:20 Ur Specific Ker[place] 1.025 (1.005-1.025) 02/15/17 02:20 Urine Protein 3+ (NEGATIVE) H 02/15/17 02:20 Urine Glucose (UA) Negative (NEGATIVE) 02/15/17 02:20 Urine Ketones Negative (NEGATIVE) 02/15/17 02:20 Urine Blood Negative (NEGATIVE) 02/15/17 02:20 Urine Nitrite Negative (NEGATIVE) 02/15/17 02:20 Urine Bilirubin Negative (NEGATIVE) 02/15/17 02:20 Urine Urobilinogen Negative E.U./dl (0.2-1.0) 02/15/17 02:20 Ur Leukocyte Esterase Negative (NEGATIVE) 02/15/17 02:20 Urine RBC 3 /hpf (0-3) 02/15/17 02:20 Urine WBC 5 /hpf (3-5) 02/15/17 02:20 Urine Bacteria Many /hpf (NONE SEEN) 02/15/17 02:20 Urine Mucus Rare 02/15/17 02:20 ecg 02/14/17: sr, nl intervals, IRBBB, no ischemic changes, pvc, no sig change prior cxr: clear lungs tele: sr Echo 09/2015: nl LVEF, no RWMAs (normal RV, normal valve fxn) mibi 01/2016 ([facility]): TDS, "probably normal" mibi 09/2016: severe ischemia in inferior territory Assessment/Plan cp: -atypical cp -ce's neg x2, cp resolved, ecg w/o ischemic changes -prior stress test 09/2016 showed inferior ischemia and plan was medical management at that time (He has chronic severe hemorrhoid bleeding that he reports is still an active issue for him and thus if he were to get a stent and subsequent dapt significantly bleeding risk would be present. The other issue is that he has ckd and also had cr bump to >3 last year when had cath/cabg so he has increased risk of MICHELLE if he were to get cath again.) -since 09/2016 he has been on nitro patch with no significant angina or cp until this episode, so it seems that medical management has been working adequately. No acute issues currently. Will increase nitro patch to 0.6 mg dose and pt ok for dc with outpt f/u. cad s/p nstemi, cabg: -as above -normal lvef -cont home bb, ccb, statin, asa HTN: -cont home meds hld: -cont statin ckd: -cr at baseline
--- NOTE | 2017-02-15 12:17 | DS ---
Physical Examination Vital Signs: Vital Signs Temperature 98 F 02/15/17 11:26 Pulse Rate 80 02/15/17 11:26 Respiratory Rate 20 02/15/17 11:26 Blood Pressure 180/72 02/15/17 11:26 O2 Sat by Pulse Oximetry (%) 98 02/15/17 09:00 Discharge Summary Reason For Visit: CHEST PAIN Current Active Problems CAD (coronary artery disease) (Acute) Chest pain (Acute) Chronic lower back pain (Acute) Diabetes (Acute) 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 with nephropathy (Acute) HTN (hypertension) (Acute) Hyperglycemia (Acute) Hyperlipidemia (Acute) Leukocytosis (Acute) NSTEMI (non-ST elevated myocardial infarction) (Acute) Obesity (Acute) Uncontrolled diabetes mellitus (Acute) Hospital Course: Please refer to H&P but in short Mr Carolina is a very pleasant 66 year old male with history of CAD who presents with atypical chest pain. He was admitted under observation to telemetry. Cardiac enzymes were sent and negative. He was seen by cardiology, had a recent stress test six months ago which showed chronic ischemia but no ACS. Currently he is chest pain free. Case d/w cardiology and felt safe for discharge with close follow up. Patient told plan and is in agreement. Stable for discharge home. Condition: Good - Instructions Diet, Activity, Other Instructions: resume previous diet and activity Referrals: German Kurtz MD [Primary Care Provider] - Nirav Dodson MD [Staff Physician] - Disposition: HOME - Home Medications Comprehensive Discharge Medication List: Ambulatory Orders Amlodipine Besylate [Norvasc -] 10 mg PO DAILY 09/20/15 Aspirin [ASA -] 81 mg PO DAILY 09/20/15 Atorvastatin Ca [Lipitor] 40 mg PO HS 09/20/15 Carvedilol 6.25 mg PO BID 09/20/15 Cholecalciferol (Vitamin D3) [D3-2000] 5,000 unit PO DAILY 09/20/15 Gabapentin [Neurontin] 300 mg PO DAILY 09/20/15 Insulin (Levemir) [Levemir Vial] 64 unit SQ BID 09/20/15 Nitroglycerin Sublingual [Nitrostat -] 0.4 mg SL [id number] PRN #30 tab 10/07/16 [place]-3 Acid Ethyl Esters [Lovaza -] 2 gm PO HS cap 10/07/16 Exenatide [Byetta] 10 mcg SQ BID 02/14/17 Furosemide [Lasix -] 40 mg PO BID 02/14/17 Losartan Potassium [Cozaar -] 25 mg PO DAILY 02/14/17 Metformin HCl [Glucophage -] 500 mg PO BID 02/14/17 Nortriptyline HCl [Pamelor -] 50 mg PO HS 02/14/17 Oxycodone HCl [Roxicodone -] 10 mg PO Q4H PRN 02/14/17
[2017-02-15] MEDS ORDERED: ATORVASTATIN CA 40 MG TABLET (FP) PO SCH (22:00)
[2017-02-15] MEDS ORDERED: OMEGA-3 ACID ETHYL ESTERS (FATTY-ACIDS) 1 GM CAPSULE (FP) PO SCH (22:00)
[2017-02-15] MEDS ORDERED: NORTRIPTYLINE HCL 50 MG CAPSULE PO SCH (22:00)
--- NOTE | 2017-02-16 14:57 | EKG ---
Test Reason : Blood Pressure : / mmHG Vent. Rate : 085 BPM Atrial Rate : 085 BPM P-R Int : 184 ms QRS Dur : 114 ms QT Int : 398 ms P-R-T Axes : 047 044 062 degrees QTc Int : 473 ms SINUS RHYTHM WITH OCCASIONAL PREMATURE VENTRICULAR COMPLEXES INCOMPLETE RIGHT BUNDLE BRANCH BLOCK CANNOT RULE OUT ANTERIOR INFARCT (CITED ON OR BEFORE 06-OCT-2016) ABNORMAL ECG WHEN COMPARED WITH ECG OF 06-OCT-2016 23:13, PREMATURE VENTRICULAR COMPLEXES ARE NOW PRESENT Confirmed by CRISTHIAN HAYWOOD MD ([id number]) on 02/16/2017 2:57:03 PM Referred By: Confirmed By:CRISTHIAN HAYWOOD MD
== END 2017-02-15 13:12 | disposition home or self-care (01) ==
LOC: JER 23:30 → JERBED 02-15 02:44 → INTOOBSV 02-15 04:02 → UNDOADMOB 02-15 04:02 → JERBED 02-15 04:02 → J4W 02-15 05:48 → JERBED 02-15 05:48
PROVIDERS: ADMIT Specialist; ATTEND Specialist
DX: R07.89 Other chest pain (principal); I10 Essential (primary) hypertension; I25.2 Old myocardial infarction; I25.10 Atherosclerotic heart disease of native coronary artery without angina pectoris; E78.5 Hyperlipidemia, unspecified; E11.21 Type 2 diabetes mellitus with diabetic nephropathy; E11.65 Type 2 diabetes mellitus with hyperglycemia; E66.9 Obesity, unspecified; D72.829 Elevated white blood cell count, unspecified; K21.9 Gastro-esophageal reflux disease without esophagitis; Z68.38 Body mass index [BMI] 38.0-38.9, adult; Z85.47 Personal history of malignant neoplasm of testis; Z86.73 Personal history of transient ischemic attack (TIA), and cerebral infarction without residual deficits; Z95.1 Presence of aortocoronary bypass graft; Z79.4 Long term (current) use of insulin; Z88.0 Allergy status to penicillin; Z88.8 Allergy status to other drugs, medicaments and biological substances; Z79.82 Long term (current) use of aspirin; Z79.84 Long term (current) use of oral hypoglycemic drugs; K64.8 Other hemorrhoids; K76.0 Fatty (change of) liver, not elsewhere classified; M19.90 Unspecified osteoarthritis, unspecified site; Z92.21 Personal history of antineoplastic chemotherapy
CPT/HCPCS: 36415; 71010-TC; 80053; 81003; 81015; 82550; 82553; 83880; 84484; 85025; 85610; 85730; 87086; 93005; 93010; 99284-25; G0378

== ENCOUNTER 2017-11-29 08:38 | Day surgery (SDC) | payer BC, OTHER ==
[2017-11-22 12:15] VITALS: BMI 38.3
[2017-11-29] MEDS ORDERED: LIDOCAINE HCL/PF 2% SDV 5ML VIAL ONE (09:12)
[2017-11-29] MEDS ORDERED: PROPOFOL 20 ML ONE (09:12)
[2017-11-29 10:33] VITALS: TEMP 97.3
[2017-11-29 10:56] VITALS: BP 150/73; PULSE 77
--- NOTE | 2017-12-01 17:01 | PATH ---
Surgical Pathology Report Patient Name: RIDGE AVILA [facility]. Rec. #: [id number] /Age/Gender: 1950 (Age: 66) / M Account: [id number] Location: [facility]-ENDOSCOPY Taken: 11/29/2017 Received: 11/29/2017 Reported: 12/01/2017 Physicians: Bianca Humphries M.D. Specimen(s) Received A: SMALL BOWEL B: ANTRUM C: GE JUNCTION Clinical History Abdominal pain Postoperative diagnosis: Rule out celiac disease, gastritis Final Diagnosis A. SMALL BOWEL, BIOPSY: SMALL BOWEL MUCOSA WITHOUT SIGNIFICANT PATHOLOGIC FINDINGS. B. STOMACH, ANTRUM, BIOPSY: GASTRIC ANTRAL MUCOSA WITH MILD CHRONIC GASTRITIS. IMMUNOHISTOCHEMICAL STAIN FOR H. PYLORI IS NEGATIVE. C. GASTROESOPHAGEAL (GE) JUNCTION, BIOPSY: GASTRIC CARDIAC TYPE MUCOSA WITH MILD TO MODERATE CHRONIC FOCAL ACTIVE GASTRITIS. IMMUNOHISTOCHEMICAL STAIN FOR H. PYLORI IS NEGATIVE. NO SQUAMOUS MUCOSA IDENTIFIED Electronically Signed Bianca Carpenter M.D. Gross Description A. Received in formalin, labeled "small bowel" are 2 mendiola, irregular portions of soft tissue measuring 0.3 and 0.4 cm. in greatest dimension. The specimens are submitted in toto in one cassette.: B. Received in formalin, labeled "antrum" is a mendiola, irregular portion of soft tissue measuring 0.3 cm. in greatest dimension. The specimen is submitted in toto in one cassette.: C. Received in formalin, labeled "GE junction" is a mendiola, irregular portion of soft tissue measuring 0.3 cm. in greatest dimension. The specimen is submitted in toto in one cassette.: ARIEL/11/30/2017 abran/11/30/2017
== END 2017-11-29 11:17 | disposition home or self-care (01) ==
LOC: FASU-ENDO 08:38
PROVIDERS: ATTEND Internal Medicine Gastroenterology
PROC: 0DB68ZX Excision of Stomach, Via Natural or Artificial Opening Endoscopic, Diagnostic (ICD-10-PCS; 2017-11-29)
PROC: 0DB58ZX Excision of Esophagus, Via Natural or Artificial Opening Endoscopic, Diagnostic (ICD-10-PCS; 2017-11-29)
PROC: 0DB98ZX Excision of Duodenum, Via Natural or Artificial Opening Endoscopic, Diagnostic (ICD-10-PCS; principal; 2017-11-29 10:13)
DX: K29.50 Unspecified chronic gastritis without bleeding (principal); R10.9 Unspecified abdominal pain
CPT/HCPCS: 82962

== ENCOUNTER 2018-01-23 20:19 | Inpatient (IN) | payer BC, OTHER ==
--- NOTE | 2018-01-23 20:27 | PDOC ---
Rapid Medical Evaluation Time Seen by Provider: 01/23/18 20:22 Medical Evaluation: Allergies Allergy/AdvReac Type Severity Reaction Status Date / Time Penicillins Allergy Rash Verified 11/29/17 09:12 sumatriptan [From Imitrex] Allergy Verified 11/29/17 09:12 sumatriptan succinate Allergy Verified 11/29/17 09:12 [From Imitrex] ASPARTANE Allergy Severe HEADACHE Uncoded 11/29/17 09:12 TRYPTOPHAN Allergy Intermediate DIARRHEA/VO Uncoded 11/29/17 09:12 MITING 01/23/18 20:22 I have performed a brief in-person evaluation of this patient. The patient presents with a chief complaint of: left back pain / sent from Dr Paulino called and told to come to [facility] As " blood counts and kidney function so bad " will need further workup. + SOB / exercise intolerance past week. Pertinent physical exam findings:pale, I have ordered the following: cbc, cmp, bnp, inr, ua, ekg cxr The patient will proceed to the ED for further evaluation. 01/23/18 20:25 01/23/18 20:25
--- NOTE | 2018-01-23 21:23 | PDOC ---
History of Present Illness - General Chief Complaint: Revisit, Lab Variance Stated Complaint: PCP SENT Time Seen by Provider: 01/23/18 20:22 History Source: Patient - History of Present Illness Timing/Duration: other Associated Symptoms: reports: shortness of breath, weakness Past History - Past Medical History Allergies/Adverse Reactions: Allergies Allergy/AdvReac Type Severity Reaction Status Date / Time Penicillins Allergy Rash Verified 01/23/18 20:23 sumatriptan [From Imitrex] Allergy Verified 01/23/18 20:23 sumatriptan succinate Allergy Verified 01/23/18 20:23 [From Imitrex] ASPARTANE Allergy Severe HEADACHE Uncoded 01/23/18 20:23 TRYPTOPHAN Allergy Intermediate DIARRHEA/VO Uncoded 01/23/18 20:23 MITING Home Medications: Ambulatory Orders Amlodipine Besylate [Norvasc -] 10 mg PO DAILY 09/20/15 Aspirin [ASA -] 81 mg PO DAILY 09/20/15 Atorvastatin Ca [Lipitor] 80 mg PO HS 09/20/15 Carvedilol 25 mg PO BID 09/20/15 Cholecalciferol (Vitamin D3) [D3-2000] 2,000 unit PO DAILY 09/20/15 Insulin (Levemir) [Levemir Vial] 64 unit SQ BID 09/20/15 Nitroglycerin Sublingual [Nitrostat -] 0.4 mg SL [id number] PRN #30 tab 10/07/16 [place]-3 Acid Ethyl Esters [Lovaza -] 2 gm PO HS cap 10/07/16 Exenatide [Byetta] 10 mcg SQ BID 02/14/17 Furosemide [Lasix -] 40 mg PO DAILY 02/14/17 Losartan Potassium [Cozaar -] 25 mg PO BID 02/14/17 metFORMIN HCL [Glucophage -] 1,000 mg PO BID 02/14/17 oxyCODONE HCL [Roxicodone -] 10 mg PO Q4H PRN 02/14/17 [place]/Om-3/Dha/Epa/Phospho/Ast [Krill Oil 500 mg Softgel] 1 each PO BID Multivit-Min/FA/Lycopen/Lutein [Centrum Silver Men Tablet] 1 each PO DAILY 11/22 Nitroglycerin Patch [Nitro-Dur Patch -] 0.4 mg TD DAILY 11/22/17 Anemia: No Asthma: No Cancer: Yes (TESTICULAR) Cardiac Disorders: Yes (NM) CVA: Yes (TIA 05/2011) COPD: No CHF: No Dementia: No Diabetes: Yes (IDDM) GI Disorders: Yes (GASTRITIS, SPASTIC COLON, GERD; COLON POLYPS) Disorders: Yes (kidney failure) HTN: Yes Hypercholesterolemia: Yes Kidney Stones: Yes Liver Disease: No Seizures: No Thyroid Disease: No - Surgical History Appendectomy: No Cardiac Surgery: Yes (quad bypass) Cholecystectomy: Yes Lung Surgery: No Neurologic Surgery: Yes (HERNIATED DISC; BRAIN SURGERY INFANT) Orthopedic Surgery: Yes (KNEE ARTHROSCOPY R/L) - Immunization History Immunization Up to Date: Yes - Suicide/Smoking/Psychosocial Hx Smoking Status: No Smoking History: Former smoker Have you smoked in the past 12 months: No Number of Cigarettes Smoked Daily: 0 If you are a former smoker, when did you quit?: 1981 Cigars Per Day: 0 Information on smoking cessation initiated: No Hx Alcohol Use: Yes (RARE) Drug/Substance Use Hx: No Substance Use Type: Prescribed Hx Substance Use Treatment: No Review of Systems - Review of Systems Constitutional: Yes: Weakness. No: Chills, Fever Respiratory: Yes: Shortness of Breath. No: Cough Cardiac (ROS): No: Chest Pain, Lightheadedness, Palpitations, Syncope ABD/GI: No: Nausea, Vomiting, Abdominal cramping : No: Dysuria *Physical Exam - Vital Signs Last Vital Signs Temp Pulse Resp BP Pulse Ox 98.2 F 76 20 158/67 99 01/23/18 20:24 01/23/18 20:24 01/23/18 20:24 01/23/18 20:24 01/23/18 20:24 - Physical Exam Comments: 01/23/18 23:26 well sriram male, in NAD General Appearance: Yes: Appropriately Dressed. No: Apparent Distress HEENT: positive: Normal Voice Neck: positive: Supple Respiratory/Chest: positive: Lungs Clear, Normal Breath Sounds. negative: Respiratory Distress Cardiovascular: positive: Regular Rate, S1, S2 Gastrointestinal/Abdominal: positive: Soft. negative: Tender Rectal Exam: positive: other (no obvious internal hemorrhoids, soft brown stool on finger, no BRB and no melena). negative: hemorrhoids Integumentary: positive: Dry, Warm Neurologic: positive: Fully Oriented, Alert, Normal Mood/Affect ED Treatment Course - LABORATORY CBC & Chemistry Diagram: 01/23/18 21:50 01/23/18 21:50 Medical Decision Making - Medical Decision Making 01/23/18 21:20 67-year-old male, history of testicular cancer, HTN, CAD w/ CABG, DM, CKD, status post multiple surgeries for bleeding hemorrhoids, sent in by Dr. Unger of GI w/ hemoglobin of 8.5 on labs 01/16. Patient reports one week of weakness and shortness of breath. States he continues to have intermittent bleeding from his hemorrhoids, last time 2 days ago. No abdominal pain. Denies any fever or chills, nausea or vomiting See exam Symptomatic anemia H/o LGIB 2/2 bleeding internal hemorrhoids w/ ongoing bleeding per pt, unclear if transfused in past Stable w/ unremarkable exam -labs -transfuse -admit 01/23/18 23:04 Hemoglobin 8.5. Based on chart review patient's hemoglobin have been trending down since late 2016 when hemoglobin was approximately 9-11. No current bleeding w/ guaiac neg soft brown stools in ED. Had colonoscopy many, many years ago with removal of benign polyps per patient and had recent endoscopy w/ gastritis seen and started on PPI. GI is Dr Barone at [facility]. Will be unable to reach M.D. at this time. Will discuss management with admitting team 01/23/18 23:26 01/23/18 23:48 Per admitting team, patient to be transfused 1 unit packed red blood cells and admitted to telemetry *DC/Admit/Observation/Transfer Diagnosis at time of Disposition: Symptomatic anemia - Discharge Dispostion Condition at time of disposition: Fair Decision to Admit order: Yes - Referrals Referrals: German Kurtz MD [Primary Care Provider] - - Patient Instructions - Post Discharge Activity
[2018-01-23 22:12] LABS: BASO % 0.5 % (0-2.0); EOS % 3.8 % (0-4.5); HEMATOCRIT 25.4 % (35.4-49); HEMOGLOBIN 8.5 GM/dL (11.7-16.9); MCH 27.8 pg (25.7-33.7); MCHC 33.6 g/dl (32.0-35.9); MEAN CELL VOLUME 82.7 fl (80-96); MEAN PLT VOLUME 7.6 fl (7.5-11.1); MONO % 8.3 % (3.8-10.2); NEUT % 67.4 % (42.8-82.8); PLATELET COUNT 278 K/MM3 (134-434); RBC 3.07 M/mm3 (4.00-5.60); RDW 15.9 % (11.9-15.9); WHITE BLOOD COUNT 9.5 K/mm3 (4.0-10.0)
[2018-01-23 22:35] LABS: ALBUMIN 3.3 g/dl (3.4-5.0); ANION GAP 8 (8-16); BLOOD UREA NITROGEN 38 mg/dL (7-18); CALCIUM 8.6 mg/dL (8.5-10.1); CHLORIDE 110 mmol/L (98-107); CO2 25 mmol/L (21-32); CREATININE 1.9 mg/dL (0.7-1.3); GLUCOSE,RANDOM 157 mg/dL (74-106); INR 1.11 (0.82-1.09); POTASSIUM 4.4 mmol/L (3.5-5.1); PROTHROMBIN TIME (PATIENT) 12.5 SEC (9.7-13.0); SGOT/AST 12 U/L (15-37); SGPT/ALT 18 U/L (12-78); SODIUM 143 mmol/L (136-145)
[2018-01-23 22:38] LABS: ALK PHOS 92 U/L (45-117); BILIRUBIN,TOTAL 0.5 mg/dL (0.2-1.0); N-TERMINAL BNP 857.81 pg/ml (5-125); TOT PROT 6.9 g/dl (6.4-8.2)
[2018-01-23] MEDS ORDERED: SODIUM CHLORIDE 500 ML IV STA (23:01)
[2018-01-23 23:21] LABS: URINE APPEARANCE CLEAR; URINE BILIRUBIN NEGATIVE (<2.0 mg/dL); URINE BLOOD NEGATIVE (NEGATIVE); URINE COLOR LTYELLOW; URINE GLUCOSE (UA) 1+ (NEGATIVE); URINE KETONE NEGATIVE (NEGATIVE); URINE LEUK ESTERASE NEGATIVE (NEGATIVE); URINE NITRITE NEGATIVE (NEGATIVE); URINE UROBILINOGEN NEGATIVE mg/dL (0.2-1.0)
[2018-01-23 23:25] LABS: URINE PROTEIN 3+ (NEGATIVE)
[2018-01-23 23:30] LABS: URINE HYALINE CAST 5 /lpf; URINE MUCUS RARE
--- NOTE | 2018-01-23 23:38 | HP ---
CHIEF COMPLAINT: Fatigue, anemia on outpt labs PCP: Dr. Davis Kurtz HISTORY OF PRESENT ILLNESS: 67 yo man with pmh of DM2, CAD (s/p quad bypass 2016 at [facility]), diastolic CHF, HTN , internal hemorrhoids who presents to ED from home due to anemia on outpatient CBC in setting of worsening SOB, SEYMOUR and fatigue for last two weeks. Pt endorses worsening fatigue, SEYMOUR and exercise tolerance over last two weeks, stating he can barely walk down the velasco to the bathroom from bed without becoming SOB. Pt endorses worsening of his chronic BL LE edema over the last two weeks as well, in addition to occasional episodes of PND at night, that wake him up from sleep. Pt also endorses persistent rectal bleeding secondary to internal hemorrhoids over the last two weeks and states "2/3 of the time I have bleeding when I defecate". Pt states the bleeding is painless and varies in volume from small streaks on his toilet paper to "cups of blood for hours". He similarly experiences loose bowel movements for the last few weeks. Pt also endorses two weeks of epigastric burning and recently received an EGD notable for mild gastritis on 12/06, however he was not started on a PPI or H2 melvin at that time. Pt states he has received four surgeries in the past for his internal hemorrhoids, but still experiences chronic bleeding and has not received a colonoscopy for "many years" due to concerns by his old GI doctor for rectal scarring from the prior procedures. Pt does not take AC for CAD due to chronic rectal bleeding. Pt also with worsening CKD, suspected to be second to his DM2 and follows with Dr. Malcolm Paulino. Pt was seen by Dr. Paulino in clinic recently and was sent for routine outpt labs to evaluate the above stated symptoms, now notable for Hgb 8.5 and was urged to go to ED for possible blood transfusion. Pt denies any COPPOLA, lightheadness, CP, lower ab pain, N/V. He endorses chronic neck and lower back pain from prior neurosurgical repair of disc herniations. He also endorses 8 episodes of exercise induced angina over the last 6 months and often feels chest tightness and SOB when walking up stairs at baseline. Pt follows with Dr. Franky Pereira at [facility]. His most recent ECHO was 07/07, notable for LVH and preserved ejection fraction. 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 Chronic kidney stones since age 12 "spastic colon" PAST SURGICAL HISTORY: Quadruple bypass Knee arthroscopy BL Brain surgery (unknown) as child Social History: Smoking: Former smoker, quit in 1980 Alcohol: Rare alcohol use Drugs: Denies Family History: NC Allergies Penicillins Allergy (Verified 01/23/18 20:23) Rash sumatriptan [From Imitrex] Allergy (Verified 01/23/18 20:23) sumatriptan succinate [From Imitrex] Allergy (Verified 01/23/18 20:23) ASPARTANE Allergy (Severe, Uncoded 01/23/18 20:23) HEADACHE TRYPTOPHAN Allergy (Intermediate, Uncoded 01/23/18 20:23) DIARRHEA/VOMITING HOME MEDICATIONS: Home Medications Medication Instructions Recorded Amlodipine Besylate [Norvasc -] 10 mg PO DAILY 09/20/15 Aspirin [ASA -] 81 mg PO DAILY 09/20/15 Atorvastatin Ca [Lipitor] 80 mg PO HS 09/20/15 Carvedilol 25 mg PO BID 09/20/15 Cholecalciferol (Vitamin D3) 2,000 unit PO DAILY 09/20/15 [D3-2000] Insulin (Levemir) [Levemir Vial] 64 unit SQ BID 09/20/15 Nitroglycerin Sublingual 0.4 mg SL [id number] PRN #30 tab 10/07/16 [Nitrostat -] [place]-3 Acid Ethyl Esters [Lovaza 2 gm PO HS cap 10/07/16 -] Exenatide [Byetta] 10 mcg SQ BID 02/14/17 Furosemide [Lasix -] 40 mg PO DAILY 02/14/17 Losartan Potassium [Cozaar -] 25 mg PO BID 02/14/17 metFORMIN HCL [Glucophage -] 1,000 mg PO BID 02/14/17 oxyCODONE HCL [Roxicodone -] 10 mg PO Q4H PRN 02/14/17 Krill/Om-3/Dha/Epa/Phospho/Ast 1 each PO BID 11/22/17 [Krill Oil 500 mg Softgel] Multivit-Min/FA/Lycopen/Lutein 1 each PO DAILY 11/22/17 [Centrum Silver Men Tablet] Nitroglycerin Patch [Nitro-Dur 0.4 mg TD DAILY 11/22/17 Patch -] REVIEW OF SYSTEMS CONSTITUTIONAL: +Fatigue Absent: fever, chills, diaphoresis, malaise, loss of appetite, weight change HEENT: Absent: rhinorrhea, nasal congestion, throat pain, throat swelling, difficulty swallowing, mouth swelling, ear pain, eye pain, visual changes CARDIOVASCULAR: +LE edema Absent: chest pain, syncope, palpitations, irregular heart rate, lightheadedness RESPIRATORY: +SOB, dyspnea on exertion Absent: cough, shortness of breath, orthopnea, wheezing, stridor, hemoptysis GASTROINTESTINAL: +abdominal pain, rectal bleeding Absent: abdominal distension, nausea, vomiting, diarrhea, constipation, melena GENITOURINARY: Absent: dysuria, frequency, urgency, hesitancy, hematuria, flank pain, genital pain MUSCULOSKELETAL: Absent: myalgia, arthralgia, joint swelling, back pain, neck pain SKIN: Absent: rash, itching, pallor HEMATOLOGIC/IMMUNOLOGIC: Absent: easy bleeding, easy bruising, lymphadenopathy, frequent infections ENDOCRINE: Absent: unexplained weight gain, unexplained weight loss, heat intolerance, cold intolerance NEUROLOGIC: Absent: headache, focal weakness or paresthesias, dizziness, unsteady gait, seizure, mental status changes, bladder or bowel incontinence PHYSICAL EXAMINATION Vital Signs - 24 hr 01/23/18 20:24 Temperature 98.2 F Pulse Rate 76 Respiratory 20 Rate Blood Pressure 158/67 O2 Sat by Pulse 99 Oximetry (%) GENERAL: Elderly man, Awake, alert, and fully oriented, in no acute distress. HEAD: Normal with no signs of trauma. EYES: Pupils equal, round and reactive to light, extraocular movements intact, sclera anicteric, conjunctiva clear. No lid lag. EARS, NOSE, THROAT: Ears normal, nares patent, oropharynx clear without exudates. Moist mucous membranes. NECK: Pain on palpation of posterior midline spine, Normal range of motion, supple without lymphadenopathy, JVD, or masses. LUNGS: Breath sounds equal, clear to auscultation bilaterally. No wheezes, and no crackles. No accessory muscle use. HEART: Regular rate and rhythm, normal S1 and S2 without murmur, rub or gallop. ABDOMEN: Multiple lower abdominal scars, induration from prior surgeries, injections. TTP in LLQ. otherwise, nontender, not distended, normoactive bowel sounds, no guarding, no rebound, no masses. No hepatomegaly or splenomegaly. MUSCULOSKELETAL: Pain on palpation of midline lumbar spine, as well as L CVA tenderness. No bony deformities or tenderness. No CVA tenderness. UPPER EXTREMITIES: 2+ pulses, warm, well-perfused. No cyanosis. No clubbing. No peripheral edema. LOWER EXTREMITIES: 2+ pulses, warm, well-perfused. No calf tenderness. 2+ pitting edema BL. NEUROLOGICAL: Cranial nerves II-XII intact. Normal speech. Gait not evaluated. PSYCHIATRIC: Cooperative. Good eye contact. Appropriate mood and affect. SKIN: Warm, dry, normal turgor, no rashes or lesions noted, normal capillary refill. Laboratory Results - last 24 hr CBC, BMP 01/23/18 21:50 01/23/18 21:50 01/23/18 01/23/18 01/23/18 21:35 21:50 21:50 WBC 9.5 RBC 3.07 L Hgb 8.5 L Hct 25.4 L MCV 82.7 MCH 27.8 MCHC 33.6 RDW 15.9 Plt Count 278 MPV 7.6 Absolute Neuts (auto) 6.4 Neutrophils % 67.4 Lymphocytes % 20.0 Monocytes % 8.3 Eosinophils % 3.8 D Basophils % 0.5 Nucleated RBC % 0 PT with INR 12.50 INR 1.11 Sodium Potassium Chloride Carbon Dioxide Anion Gap BUN Creatinine Creat Clearance w eGFR Random Glucose Calcium Total Bilirubin AST ALT Alkaline Phosphatase B-Natriuretic Peptide Total Protein Albumin Stool Occult Blood Negative Blood Type Antibody Screen 01/23/18 01/23/18 21:50 21:50 WBC RBC Hgb Hct MCV MCH MCHC RDW Plt Count MPV Absolute Neuts (auto) Neutrophils % Lymphocytes % Monocytes % Eosinophils % Basophils % Nucleated RBC % PT with INR INR Sodium 143 Potassium 4.4 Chloride 110 H Carbon Dioxide 25 Anion Gap 8 BUN 38 H Creatinine 1.9 H Creat Clearance w eGFR 35.64 Random Glucose 157 H Calcium 8.6 Total Bilirubin 0.5 AST 12 L D ALT 18 D Alkaline Phosphatase 92 B-Natriuretic Peptide 857.81 H Total Protein 6.9 Albumin 3.3 L Stool Occult Blood Blood Type A POSITIVE Antibody Screen Negative No micro XR 6/5 - film rotated to the left; cardiomegaly; possible subsegmental atelectasis at LL base; trace increased vascular markings diffusely; no pneumo or focal consolidations; stenotomy wires noted EKG - NSR, NAD, rate of 73, qtc 464, No ST or TW changes ASSESSMENT/PLAN: 67 yo man with pmh of DM2, CAD (s/p quad bypass 2016 at [facility]), diastolic CHF, HTN , internal hemorrhoids who presents to ED from home due to anemia on outpatient CBC in setting of worsening SOB, SEYMOUR and fatigue for last two weeks. PE unremarkable, labs notable for Hgb 8.5, Cr 1.9 and BNP of 860~. CXR with possible trace BL congestion and cardiomegaly, EKG normal. #Anemia secondary to hemorrhoidal bleeding/CKD - FOBT negative; received one unit pRBCS in ED - Serial CBCs - Iron studies - consider PO ferrous sulfate - Will require eventual outpt colonoscopy/ GI f/u - Complete 1 unit prbcs #CKD - Cr 1.9; most recently 1.7 in October 2017 - Trend Cr - Avoid nephrotoxic agents - Consider renal consult #Diastolic CHF - Most recent Echo 07/07, notable for LVH and pEF; receives 40 PO lasix at home; CXR with possible vascular congestion; BNP 860~ - Lasix IV 80mg and trend UOP - Strict Is and Os - Echo - Cards consult - cardiac monitoring #CAD - Hold ASA for now - Cardiology consult - Cardiac monitoring - lipid profile #HTN - Vitals q4h - c/w home meds - hold Norvasc in setting of LE edema #Chronic back pain - secondary to herniated disc - Oxycodone 5mg PRN #DM2 - BGM q4h - ISS - levemir 65 unit BID -A1C PPX HSQ Protonix IV FEN PO hydration Daily lytes Low Sodium diet Plan discussed with attending Dr. Ramirez Visit type - Emergency Visit Emergency Visit: Yes ED Registration Date: 01/24/18 Care time: The patient presented to the Emergency Department on the above date and was hospitalized for further evaluation of their emergent condition. - New Patient This patient is new to me today: Yes Date on this admission: 01/30/18 - Critical Care Critical Care patient: No Hospitalist Screening - Colonoscopy Questionnaire Colonoscopy Questionnaire: Colonoscopy Questionnaire - Patient: 50 - 75 years old and never had a screening colonoscopy: Unknown History of colon or rectal polyps, or CA: Unknown History of IBD, Crohn's disease or UC: Unknown History of abdominal radiation therapy as a child: Unknown - Relative: 1 with colon or rectal CA, or polyps at age 60 or younger: Unknown Colon or rectal CA diagnosed at age 45 or younger: Unknown Multiple relatives with colon or rectal CA: Unknown - Outcome: Screening Result: Negative Screen
[2018-01-24] MEDS ORDERED: FUROSEMIDE 100 MG/10 ML INJECTABLE VIAL IVPB ONE (05:04)
--- NOTE | 2018-01-24 05:12 | PN ---
Teaching Attending Note Name of Resident: Jesus Jha ATTENDING PHYSICIAN STATEMENT I saw and evaluated the patient. I reviewed the resident's note and discussed the case with the resident. I agree with the resident's findings and plan as documented. SUBJECTIVE: Patient is a 67 year old man with pmh of DM2, CAD (s/p quad bypass 2016 at [facility]) , diastolic CHF, HTN, internal hemorrhoids who presents to ED from home due to severe symptomatic anemia - SOB, SEYMOUR and fatigue for last two weeks. He was sent by his doctor to get blood transfusion. He has also had loose bowel movements lately, but none since today. He has history of rectal bleeding secondary to internal hemorrhoids, gastritis documented by EGD in November 2017. Rectal exam by ER staff was unrevealing. Other PMH include ?CKD stage 3, chronic lower back pain, Testicular Cancer, kidney stones since age 12 and IBD? OBJECTIVE: Vital Signs Period Temp Pulse Resp BP Sys/Guo Pulse Ox Last 24 Hr 98.2 F-98.7 F 71-77 18-20 153-179/63-85 99-99 HEENT: No Jaundice, eye redness or discharge, PERRLA, EOMI. Normocephalic, atraumatic. External ears are normal and hearing is grossly intact. No nasal discharge. Neck: Supple, nontender. No palpable adenopathy or thyromegaly. No JVD Chest: Good effort. Clear to auscultation and percussion. Heart: Regular. No S3, rub or murmur Abdomen: Not distended, soft, nontender and no HSM. Has one testicle. No rebound or guarding. Normoactive bowel sounds. Ext: Peripheral pulses intact. Bilateral leg edema. Skin: Warm and dry. No petechiae, rash or ecchymosis. Neuro: Alert. Oriented x3. CN 2-12 grossly intact. Sensation grossly intact in all four extremities and DTR are symmetric. Current Medications Generic Name Dose Route Start Last Admin Trade Name Freq PRN Reason Stop Dose Admin Furosemide 80 mg 01/24/18 05:04 Lasix Injection - IVPB 01/24/18 05:05 ONCE ONE Home Medications Medication Instructions Recorded Amlodipine Besylate [Norvasc -] 10 mg PO DAILY 09/20/15 Aspirin [ASA -] 81 mg PO DAILY 09/20/15 Atorvastatin Ca [Lipitor] 80 mg PO HS 09/20/15 Carvedilol 25 mg PO BID 09/20/15 Cholecalciferol (Vitamin D3) 2,000 unit PO DAILY 09/20/15 [D3-2000] Insulin (Levemir) [Levemir Vial] 64 unit SQ BID 09/20/15 Nitroglycerin Sublingual 0.4 mg SL [id number] PRN #30 tab 10/07/16 [Nitrostat -] [place]-3 Acid Ethyl Esters [Lovaza 2 gm PO HS cap 10/07/16 -] Exenatide [Byetta] 10 mcg SQ BID 02/14/17 Furosemide [Lasix -] 40 mg PO DAILY 02/14/17 Losartan Potassium [Cozaar -] 25 mg PO BID 02/14/17 metFORMIN HCL [Glucophage -] 1,000 mg PO BID 02/14/17 oxyCODONE HCL [Roxicodone -] 10 mg PO Q4H PRN 02/14/17 Krill/Om-3/Dha/Epa/Phospho/Ast 1 each PO BID 11/22/17 [Krill Oil 500 mg Softgel] Multivit-Min/FA/Lycopen/Lutein 1 each PO DAILY 11/22/17 [Centrum Silver Men Tablet] Nitroglycerin Patch [Nitro-Dur 0.4 mg TD DAILY 11/22/17 Patch -] Abnormal Lab Results 01/23/18 01/23/18 01/23/18 21:50 21:50 21:50 RBC 3.07 L Hgb 8.5 L Hct 25.4 L Chloride 110 H BUN 38 H Creatinine 1.9 H Random Glucose 157 H AST 12 L D B-Natriuretic Peptide 857.81 H Albumin 3.3 L Urine Protein Urine Glucose (UA) Crossmatch See Detail 01/23/18 23:05 RBC Hgb Hct Chloride BUN Creatinine Random Glucose AST B-Natriuretic Peptide Albumin Urine Protein 3+ H Urine Glucose (UA) 1+ H Crossmatch ASSESSMENT AND PLAN: 1. Symptomatic Anemia - Likely chiefly due to GI blood loss (?internal hemorrhoids), but also has renal anemia. Will benefit from ongoing outpatient treatment with IV iron and Procrit to preempt any future needs for transfusion. No evidence of active bleeding at this time. Counseled to avoid NSAIDS and will give PPI for confirmed gastritis. Already getting 1 unit PRBC. 2. CKD - Being evaluated by nephrology with kidney biopsy planned. Nephrosis - not due to DM - may be exacerbating leg edema. 3. CAD/CHF - Continue current regimen for CAD, and will increase lasix dose to ascertain the dose that will induce adequate diuresis and possibly add metolazone. In view of CKD, lasix 40mg is most likely not enough. Consult cardiology for optimum strategy to manage his diastolic dysfunction. 4. Diarrhea? - He says he has "irritable bowel disease". No loose BM since arrival in the ER. Etiology is unclear, but will send stool for C Diff if he has loose BM. 5. DM - Will do sliding scale coverage with insulin. 6. DVT prophylaxis - Heparin 5000u sq tid 7. Advance directives - Full code
[2018-01-24] MEDS ORDERED: FUROSEMIDE 40 MG/4 ML INJECTABLE VIAL ONE (05:43)
[2018-01-24 05:57] LABS: BASO % 0.7 % (0-2.0); EOS % 3.5 % (0-4.5); HEMATOCRIT 29.3 % (35.4-49); HEMOGLOBIN 9.7 GM/dL (11.7-16.9); LYMPH % 16.5 % (8-40); MCH 27.6 pg (25.7-33.7); MCHC 33.3 g/dl (32.0-35.9); MEAN CELL VOLUME 83.1 fl (80-96); MEAN PLT VOLUME 7.5 fl (7.5-11.1); MONO % 8.3 % (3.8-10.2); PLATELET COUNT 263 K/MM3 (134-434); RBC 3.52 M/mm3 (4.00-5.60); RDW 16.1 % (11.9-15.9); WHITE BLOOD COUNT 11.1 K/mm3 (4.0-10.0)
[2018-01-24 06:09] LABS: INR 1.15 (0.82-1.09)
[2018-01-24 06:21] LABS: ALBUMIN 3.4 g/dl (3.4-5.0); ALK PHOS 98 U/L (45-117); ANION GAP 8 (8-16); BILIRUBIN,TOTAL 0.9 mg/dL (0.2-1.0); BLOOD UREA NITROGEN 35 mg/dL (7-18); CHLORIDE 111 mmol/L (98-107); CO2 23 mmol/L (21-32); CREATININE 1.7 mg/dL (0.7-1.3); GLUCOSE,RANDOM 135 mg/dL (74-106); MAGNESIUM 2.2 mg/dL (1.8-2.4); PHOSPHOROUS 4.4 mg/dL (2.5-4.9); POTASSIUM 4.4 mmol/L (3.5-5.1); SGOT/AST 13 U/L (15-37); SGPT/ALT 20 U/L (12-78); SODIUM 142 mmol/L (136-145)
[2018-01-24 08:08] VITALS: BMI 23.3
[2018-01-24] MEDS: PANTOPRAZOLE SODIUM 40 MG VIAL IVPUSH SCH (09:48)
[2018-01-24] MEDS: CHOLECALCIFEROL (VITAMIN D3) 1,000 UNIT TABLET (FP) PO SCH (09:48)
[2018-01-24] MEDS: CARVEDILOL 25 MG TABLET (FP) PO SCH ×2 (09:48→22:35)
--- NOTE | 2018-01-24 11:46 | EKG ---
Test Reason : Blood Pressure : / mmHG Vent. Rate : 073 BPM Atrial Rate : 073 BPM P-R Int : 208 ms QRS Dur : 114 ms QT Int : 422 ms P-R-T Axes : 060 051 065 degrees QTc Int : 464 ms POOR DATA QUALITY, INTERPRETATION MAY BE ADVERSELY AFFECTED NORMAL SINUS RHYTHM INCOMPLETE RIGHT BUNDLE BRANCH BLOCK CANNOT RULE OUT ANTERIOR INFARCT (CITED ON OR BEFORE 06-OCT-2016) ABNORMAL ECG WHEN COMPARED WITH ECG OF 14-FEB-2017 23:39, PREMATURE VENTRICULAR COMPLEXES ARE NO LONGER PRESENT Confirmed by CHRISTIANNE COREAS MD ([id number]) on 01/24/2018 11:46:02 AM Referred By: Confirmed By:CHRISTIANNE COREAS MD
--- NOTE | 2018-01-24 11:51 | PN ---
Progress Note, Physician Chief Complaint: Mr Carolina says he feels better today but still not normal. His breathing is better at rest but still has severe dyspnea on minimal exertion. Also still feeling very fatigued. No cp, sob at rest, n/v. Says his legs are still extremely swollen and not at baseline. - Current Medication List Current Medications: Active Medications Atorvastatin Calcium (Lipitor -) 80 mg PO HS [facility] Carvedilol (Coreg -) 25 mg PO BID [facility] Last Admin: 01/24/18 09:48 Dose: 25 mg Cholecalciferol (Vitamin D3 -) 2,000 unit PO DAILY [facility] Last Admin: 01/24/18 09:48 Dose: 2,000 unit Oxycodone HCl (Roxicodone -) 5 mg PO Q6H PRN PRN Reason: PAIN LEVEL 6-10 Pantoprazole Sodium (Protonix Iv) 40 mg IVPUSH DAILY [facility] Last Admin: 01/24/18 09:48 Dose: 40 mg - Objective Vital Signs: Vital Signs Temperature 36.8 C 01/24/18 09:46 Pulse Rate 80 01/24/18 09:46 Respiratory Rate 16 01/24/18 09:46 Blood Pressure 152/78 01/24/18 09:46 O2 Sat by Pulse Oximetry (%) 100 01/24/18 08:00 Constitutional: Yes: Well Nourished, No Distress, Calm Cardiovascular: Yes: Regular Rate and Rhythm. No: Gallop, Murmur, Rub Respiratory: Yes: Regular, On Nasal O2, Rhonchi. No: CTA Bilaterally, Rales, Wheezes Gastrointestinal: Yes: Normal Bowel Sounds, Soft. No: Distention, Tenderness Extremities: Yes: WNL Edema: Yes Edema: LLE: 3+, RLE: 3+ Labs: CBC, BMP 01/24/18 05:37 01/24/18 05:37 INR, PTT INR 1.15 (0.82-1.09) H 01/24/18 05:37 Problem List - Problems (1) Acute on chronic diastolic (congestive) heart failure Assessment/Plan: -patient presents with sob and severe BLE edema -given lasix 80mg IV x1 with diuresis -will continue lasix 40mg IV bid, still significantly fluid overloaded with dyspnea on minimal exertion and orthopnea -cardiology consulted -continue coreg and losartan Code(s): I50.33 - ACUTE ON CHRONIC DIASTOLIC (CONGESTIVE) HEART FAILURE (2) Anemia Assessment/Plan: -secondary to hematochezia -transfused pRBCs with proper response -monitor Code(s): D64.9 - ANEMIA, UNSPECIFIED Qualifiers: Anemia type: other cause Other causes of anemia: acute posthemorrhagic Qualified Code(s): D62 - Acute posthemorrhagic anemia (3) Hematochezia Assessment/Plan: -GI consulted -will await recommendations Code(s): K92.1 - MELENA (4) 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 with nephropathy Assessment/Plan: -continue levemir 64 units bid -diabetic diet -FSBS and liberal SSI -will not continue metformin currently secondary to creatinine Code(s): E11.21 - TYPE 2 DIABETES MELLITUS WITH DIABETIC NEPHROPATHY Qualifiers: 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 type: type 2 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 senior care insulin use: with intermediate project manager use Qualified Code(s): E11.21 - Type 2 diabetes mellitus with diabetic nephropathy; Z79.4 - nursing home (current) use of insulin (5) VILLA (acute kidney injury) Assessment/Plan: -with elevated creatinine -secondary to anemia -suspect aspect of cardiorenal syndrome -will continue IV lasix and diuresis, monitor -if does not improve, consult nephrology Code(s): N17.9 - ACUTE KIDNEY FAILURE, UNSPECIFIED (6) HTN (hypertension) Assessment/Plan: -continue losartan and coreg -also on IV lasix -monitor, adjust if needed Code(s): I10 - ESSENTIAL (PRIMARY) HYPERTENSION (7) Hyperlipidemia Assessment/Plan: -continue current regimen Code(s): E78.5 - HYPERLIPIDEMIA, UNSPECIFIED
--- NOTE | 2018-01-24 14:37 | CON.GI ---
Consult Consult Specialty:: For Dr. Lio Severino Reason for Consultation:: hematochezia - History of Present Illness History of Present Illness: Chart reviewed. Events noted. As per initial intake: a 67 year old man with pmh of DM2, CAD (s/p quad bypass 2016 at [facility]), diastolic CHF, HTN, internal hemorrhoids who presents to ED from home due to severe symptomatic anemia - SOB , [place] and fatigue for last two weeks. He was sent by his doctor to get blood transfusion. He has also had loose bowel movements lately, but none since today. He has history of rectal bleeding secondary to internal hemorrhoids, gastritis documented by EGD in November 2017. Rectal exam by ER staff was unrevealing. Other PMH include ?CKD stage 3, chronic lower back pain, Testicular Cancer, kidney stones since age 12 and IBD? At the time of this encounter the patient appears comfortable, not in distress. Awake, alert, oriented. Corroborates the above history. Reports almost daily episodes of hematochezia ranging from streaks of blood on toilet paper to "bleeding on the toilet for 30 minutes". The hematochezia is painless and not associated with nausea, vomiting, abdominal cramps, urgency or tenesmus. On admission noted to have hemoglobin of 8.5 g/dL. Normocytic, normochromic. 11 g/dL appears to be the baseline. The patient underwent an EGD 1.5 months ago , which showed H. pylori and metaplasia negative for gastritis. No history of recent colonoscopy. Takes aspirin daily. No chronic NSAIDs. 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 Cardio/Vascular: Yes: AFIB, HTN, Other (TALAT) Gastrointestinal: Yes: Irritable Bowel Disease Renal/: Yes: Renal Inusuff Endocrine: Yes: Diabetes Mellitus - Past Surgical History Past Surgical History: Yes: Cholecystectomy - Alcohol/Substance Use Hx Alcohol Use: Yes (RARE) History of Substance Use: reports: None - Smoking History Smoking history: Former smoker Have you smoked in the past 12 months: No Aproximately how many cigarettes per day: 0 If you are a former smoker, when did you quit?: 1980 - Social History ADL: Independent History of Recent Travel: No Home Medications - Allergies Allergies/Adverse Reactions: Allergies Allergy/AdvReac Type Severity Reaction Status Date / Time Penicillins Allergy Rash Verified 01/23/18 20:23 sumatriptan [From Imitrex] Allergy Verified 01/23/18 20:23 sumatriptan succinate Allergy Verified 01/23/18 20:23 [From Imitrex] ASPARTANE Allergy Severe HEADACHE Uncoded 01/23/18 20:23 TRYPTOPHAN Allergy Intermediate DIARRHEA/VO Uncoded 01/23/18 20:23 MITING - Home Medications Home Medications: Ambulatory Orders Amlodipine Besylate [Norvasc -] 10 mg PO DAILY 09/20/15 Aspirin [ASA -] 81 mg PO DAILY 09/20/15 Atorvastatin Ca [Lipitor] 80 mg PO HS 09/20/15 Carvedilol 25 mg PO BID 09/20/15 Cholecalciferol (Vitamin D3) [D3-2000] 2,000 unit PO DAILY 09/20/15 Insulin (Levemir) [Levemir Vial] 64 unit SQ BID 09/20/15 Nitroglycerin Sublingual [Nitrostat -] 0.4 mg SL [id number] PRN #30 tab 10/07/16 [place]-3 Acid Ethyl Esters [Lovaza -] 2 gm PO HS cap 10/07/16 Exenatide [Byetta] 10 mcg SQ BID 02/14/17 Furosemide [Lasix -] 40 mg PO DAILY 02/14/17 Losartan Potassium [Cozaar -] 25 mg PO BID 02/14/17 metFORMIN HCL [Glucophage -] 1,000 mg PO BID 02/14/17 oxyCODONE HCL [Roxicodone -] 10 mg PO Q4H PRN 02/14/17 Krill/Om-3/Dha/Epa/Phospho/Ast [Krill Oil 500 mg Softgel] 1 each PO BID Multivit-Min/FA/Lycopen/Lutein [Centrum Silver Men Tablet] 1 each PO DAILY 11/22 Nitroglycerin Patch [Nitro-Dur Patch -] 0.4 mg TD DAILY 11/22/17 Family Disease History - Family Disease History Family Disease History: Diabetes: Mother, Heart Disease: Father Review of Systems Findings/Remarks: As per H&P and HPI Physical Exam-GI Vital Signs: Vital Signs Temperature 98.4 F 01/24/18 14:00 Pulse Rate 72 01/24/18 14:00 Respiratory Rate 20 01/24/18 14:00 Blood Pressure 147/75 01/24/18 14:00 O2 Sat by Pulse Oximetry (%) 100 01/24/18 08:00 Labs: CBC, BMP 01/24/18 05:37 01/24/18 05:37 INR, PTT INR 1.15 (0.82-1.09) H 01/24/18 05:37 Problem List - Problems (1) Hematochezia Code(s): K92.1 - MELENA (2) Blood in stool Code(s): K92.1 - MELENA (3) Blood in stool, allen Code(s): K92.1 - MELENA Assessment/Plan a 67-year-old male with multiple, active medical issues presents with hematochezia and symptomatic anemia. Doubt upper GI source of bleed. His last colonoscopy was about 10 years ago. Polyps were found. He was told not to avoid colonoscopy because of a lot of scarring tissue. Colonoscopy was discussed with the patient and he is hesitant to have it done for the stated reason. He may be agreeable if pediatric colonoscope is used. There is no ongoing gastrointestinal bleeding at this time. The patient is hemodynamically and clinically stable. We will prep patient for colonoscopy once cleared for it by primary care and cardiology. Maintain hemoglobin above 8 g/dL, or as per cardiology. Hold aspirin if possible. Clear liquid diet today and tomorrow. Will follow.
[2018-01-24] MEDS: FUROSEMIDE 40 MG/4 ML INJECTABLE VIAL IVPUSH SCH (15:41)
--- NOTE | 2018-01-24 16:02 | CON.CARD ---
Consult Consult Specialty:: Cardiology Referred by:: Dr. Abdi Reason for Consultation:: SOB, CAD - History of Present Illness Chief Complaint: SOB, anemia History of Present Illness: 67 year old man h/o HTN, DMII, CKD, CAD s/p CABG x4 after nstemi 09/2015 at [facility] , nuclear stress test 09/2016 after admission for chest pain, nuclear stress test showed inferior/inferoapical ischemia LVEF 77%, chronic stable angina on NTG patch at home, TIA 2000, carotid stenosis s/p CEA 2007, [place], bleeding hemorrhoids s/p 2 complicated colonoscopies in the past, chronic cervical and lumbar disc disease, multiple surgeries and chronic pain, current CKD with nephrotic range proteinurea and chronic b/l LE edema admitted with rectal bleeding and worsening of chronic dyspnea on exertion. Pt was seen and examined today in nad. States that aside from his daily NTG patch he has taken NTG SL approximately 7 times over the past month. Denies any recent change in his chronic angina. His dyspnea has worsened as above. LE edema has slightly worsened. No pnd, orthopnea. No lightheadedness, dizziness, syncope, or near syncope. 66 yo male here with cp. Has hx cad with nstemi 09/2015 and cath with severe dz so had cabgx4 at [facility] then. Admitted here 09/2016 with cp, had +mibi and treated medically. Since then has been on nitro patch with no significant anginal sxs or cp until last night when at rest and noticed some sharp pain in left chest. He took one nitro sl but no improvement so came to ER. No sob, palps, dizzy, loc, pnd, orthopnea. Mild chronic le edema stable. This AM feeling well, cp resolved. Has been following with dr mckinney for cardio. 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 Cardio/Vascular: Yes: CAD, CHF, HTN, Hyperlipdemia, SD, Other (TALAT) Gastrointestinal: Yes: Irritable Bowel Disease Renal/: Yes: Renal Inusuff Endocrine: Yes: Diabetes Mellitus - Past Surgical History Past Surgical History: Yes: Cholecystectomy - Alcohol/Substance Use Hx Alcohol Use: Yes (RARE) History of Substance Use: reports: None - Smoking History Smoking history: Former smoker Have you smoked in the past 12 months: No Aproximately how many cigarettes per day: 0 If you are a former smoker, when did you quit?: 1980 - Social History ADL: Independent History of Recent Travel: No Home Medications - Allergies Allergies/Adverse Reactions: Allergies Allergy/AdvReac Type Severity Reaction Status Date / Time Penicillins Allergy Rash Verified 01/23/18 20:23 sumatriptan [From Imitrex] Allergy Verified 01/23/18 20:23 sumatriptan succinate Allergy Verified 01/23/18 20:23 [From Imitrex] ASPARTANE Allergy Severe HEADACHE Uncoded 01/23/18 20:23 TRYPTOPHAN Allergy Intermediate DIARRHEA/VO Uncoded 01/23/18 20:23 MITING - Home Medications Home Medications: Ambulatory Orders Amlodipine Besylate [Norvasc -] 10 mg PO DAILY 09/20/15 Aspirin [ASA -] 81 mg PO DAILY 09/20/15 Atorvastatin Ca [Lipitor] 80 mg PO HS 09/20/15 Carvedilol 25 mg PO BID 09/20/15 Cholecalciferol (Vitamin D3) [D3-2000] 2,000 unit PO DAILY 09/20/15 Insulin (Levemir) [Levemir Vial] 64 unit SQ BID 09/20/15 Nitroglycerin Sublingual [Nitrostat -] 0.4 mg SL [id number] PRN #30 tab 10/07/16 [place]-3 Acid Ethyl Esters [Lovaza -] 2 gm PO HS cap 10/07/16 Exenatide [Byetta] 10 mcg SQ BID 02/14/17 Furosemide [Lasix -] 40 mg PO DAILY 02/14/17 Losartan Potassium [Cozaar -] 25 mg PO BID 02/14/17 metFORMIN HCL [Glucophage -] 1,000 mg PO BID 02/14/17 oxyCODONE HCL [Roxicodone -] 10 mg PO Q4H PRN 02/14/17 Krill/Om-3/Dha/Epa/Phospho/Ast [Krill Oil 500 mg Softgel] 1 each PO BID Multivit-Min/FA/Lycopen/Lutein [Centrum Silver Men Tablet] 1 each PO DAILY 11/22 Nitroglycerin Patch [Nitro-Dur Patch -] 0.4 mg TD DAILY 11/22/17 Family Disease History - Family Disease History Family Disease History: Diabetes: Mother, Heart Disease: Father Review of Systems - Review of Systems Constitutional: reports: Weakness. denies: No Symptoms, Chills, Diaphoresis, Fever, Lethargy, Loss of Appetite, Malaise, Night Sweats, Unintentional Wgt. Loss, Other Eyes: denies: No Symptoms, Blind Spots, Blurred Vision, Double Vision, Eye Pain , Floaters, Photophobia, Recent Change in Vision, Other HENT: denies: No Symptoms, Difficult Swallowing, Ear Discharge, Ear Pain, Epistaxis, Gingival Bleeding, Hearing Loss, Mouth Swelling, Nasal Congestion, Ocular Prosthesis, Throat Pain, Toothache, Ringing in Ears, Other Neck: denies: No Symptoms, Decreased ROM, Lumps, Pain on Movement, Stiffness, Swollen Glands, Tenderness, Other Cardiovascular: reports: Edema, Shortness of Breath. denies: No Symptoms, Chest Pain, Palpitations, Other Respiratory: reports: Exercise Intolerance, Snoring, SOB, SOB on Exertion. denies: No Symptoms, Cough, Hemoptysis, Orthopnea, PND, Wheezing, Other Gastrointestinal: denies: No Symptoms, Abdominal Pain, Bloating, Constipation, Diarrhea, Dysphagia, Indigestion, Melena, Nausea, Rectal Bleeding, Vomiting, Vomiting Blood, Other Genitourinary: denies: No Symptoms, Burning, Discharge, Dysuria, Flank Pain, Frequency, Hematuria, Incontinence, Lesions, Menses, Pain, Testicular Mass, Testicular Pain, Testicular Swelling, Urgency, Vaginal Bleeding, Other Breasts: denies: No Symptoms Reported, See HPI, Breast Implants, Discharge from Nipple, Lumps, Pain, Skin Changes, Other Musculoskeletal: reports: Back Pain, Extremity Pain. denies: No Symptoms, Crepitus, Decreased ROM, Joint Pain, Joint Swelling, Muscle Pain, Muscle Cramps , Muscle Weakness, Other Integumentary: denies: No Symptoms, Blister, Bruising, Change in Color, Eczema, Erythema, Incision, Lesions, Lump, Pallor, Pruritis, Rash, Wound, Other Neurological: denies: No Symptoms, Change in LOC, Change in Speech, Confusion, Dizziness, Headache, Incoordination, Numbness, Parasthesia, Pre-Existing Deficit , Seizure, Syncope, Tremors, Unsteady Gait, Weakness, Other Endocrine: denies: No Symptoms, Excessive Sweating, Flushing, Increased Hunger, Increased Thirst, Intolerance to Cold, Intolerance to Heat, Unexplained Weight Gain, Unexplained Weight Loss, Other Hematology/Lymphatic: reports: Excessive Bleeding. denies: No Symptoms, Easily Bruised, Swollen Glands, Other Psychiatric: denies: No Symptoms, Altered Sleep Pattern, Anxiety, Depression, Hallucinations, Panic, Paranoia, Suicidal, Other - Risk Factors Known Risk Factors: Yes: Diabetes Mellitus, Hypercholesterolemia, Hypertension, Physical Inactivity, Prior SD /Emb Stroke, Smoking Vital Signs: Vital Signs Temperature 98.4 F 01/24/18 14:00 Pulse Rate 72 01/24/18 14:00 Respiratory Rate 20 01/24/18 14:00 Blood Pressure 147/75 01/24/18 14:00 O2 Sat by Pulse Oximetry (%) 100 01/24/18 08:00 Constitutional: Yes: No Distress, Calm, Obese Eyes: Yes: Conjunctiva Clear, EOM Intact, PERRL HENT: Yes: Atraumatic, Normocephalic Neck: Yes: Supple, Trachea Midline Respiratory: Yes: Regular, Diminished. No: Rales, Rhonchi, Wheezes Gastrointestinal: Yes: Normal Bowel Sounds, Soft. No: Distention, Tenderness Cardiovascular: Yes: Regular Rate and Rhythm. No: Bradycardia, Tachycardia, Pulse Irregular, Gallop, Rub, Varicosities JVD: No Carotid Bruit: No PMI: Non-Displaced Heart Sounds: Yes: S1, S2. No: Split S2, S3, S4, Clicks, Gallop, Rub, Bruit Murmur: No: Systolic Murmur, Diastolic Murmur Musculoskeletal: Yes: Muscle Weakness Extremities: Yes: WNL Edema: Yes Edema: LLE: 2+, RLE: 2+ Peripheral Pulses WNL: Yes Peripheral Pulses: 2+ Left Doralis Pedis, 2+ Right Dorsalis Pedis Integumentary: Yes: WNL Neurological: Yes: Alert, Oriented Psychiatric: Yes: Alert, Oriented - Other Data Labs, Other Data: CBC, BMP 01/24/18 05:37 01/24/18 05:37 INR, PTT INR 1.15 (0.82-1.09) H 01/24/18 05:37 Troponin, BNP 01/23/18 21:50 B-Natriuretic Peptide 857.81 H Troponin, BNP 01/23/18 21:50 B-Natriuretic Peptide 857.81 H ekg-nsr 73bpm, incomplete RBBB, poor R progression, no sig St abnl Echo: Report Reviewed Prior Cardiac Procedures: CABG Imaging - Results Chest X-ray: Report Reviewed, Image Reviewed EKG: Report Reviewed, Image Reviewed Other: Report Reviewed, Image Reviewed (tele-nsr, no arrhythmias recorded) Assessment/Plan 67 year old man h/o HTN, DMII, CKD, CAD s/p CABG x4 after nstemi 09/2015 at [facility] , nuclear stress test 09/2016 after admission for chest pain, nuclear stress test showed inferior/inferoapical ischemia LVEF 77%, chronic stable angina on NTG patch at home, TIA 2000, carotid stenosis s/p CEA 2007, [place], bleeding hemorrhoids s/p 2 complicated colonoscopies in the past, chronic cervical and lumbar disc disease, multiple surgeries and chronic pain, current CKD with nephrotic range proteinurea and chronic b/l LE edema admitted with rectal bleeding and worsening of chronic dyspnea on exertion. Pt was seen and examined today in nad. States that aside from his daily NTG patch he has taken NTG SL approximately 7 times over the past month. Denies any recent change in his chronic angina. His dyspnea has worsened as above. LE edema has slightly worsened. No pnd, orthopnea. No lightheadedness, dizziness, syncope, or near syncope. stress test 09/2016 inferior/inferoapical ischemia LVEF 77%, managed medically due to rectal bleeding and CKD ECHO 01/24/18- Normal LV systolic function, mod LVH, mild AR, mild TR SOB/Dyspnea-multifactorial, chronic dyspnea with superimposed anemia -cardiac enzymes wnl -suspect a degree of Chronic diastolic CHF, dose not appear significantly decompensated, b/L LE edema likely in large part due to nephrotic syndrome, lungs are clear -s/p PRBCs with improvement in H/H -no further bleeding -echo showed Normal LV systolic function and no sig valvular abnl as above -can cont Lasix diuresis for now but use caution to avoid intravascular depletion as edema in large part due to 3rd spacing as oppossed to volume overload -At this time there is no cardiac contraindication to planned endoscopy -ASA was held for bleeding and can be held for endoscopy with plan to resume as soon as safe to -cont bblocker, ARB CAD-h/o CABG and chronic angina with abnormal stress test last year as above managed medically -cont bblocker, ARB, statin -holding ASA for now for rectal bleeding and endoscopy, to be resumed when safe -cont home NTG -close outpatient fup
[2018-01-24] MEDS: INSULIN (NOVOLOG) ASPART 100 UNITS/ML 10ML VIAL SQ SCH ×2 (17:45→22:34)
[2018-01-24] MEDS: INSULIN (LEVEMIR) 100 UNITS/ML UNITS SQ SCH (17:45)
[2018-01-24] MEDS ORDERED: OMEGA-3 ACID ETHYL ESTERS (FATTY-ACIDS) 1 GM CAPSULE (FP) PO SCH (22:00)
[2018-01-24] MEDS ORDERED: ATORVASTATIN CA 80 MG TABLET (FP) PO SCH (22:00)
[2018-01-24] MEDS: PHOSPHO PO SCH (22:35)
[2018-01-24] MEDS: DHA PO SCH (22:35)
[2018-01-24] MEDS: LOSARTAN POTASSIUM 25 MG TABLET PO SCH (22:35)
[2018-01-24] MEDS: [UNRECOGNIZED DRUG - OTHER] PO SCH (22:35)
[2018-01-24] MEDS: EPA PO SCH (22:35)
[2018-01-24] MEDS: AST PO SCH (22:35)
[2018-01-24] MEDS: KRILL PO SCH (22:35)
[2018-01-25] MEDS: oxyCODONE HCL 5 MG TABLET PO PRN ×3 (00:46→21:25)
[2018-01-25] MEDS ORDERED: oxyCODONE HCL 5 MG TABLET PO ONE (05:18)
[2018-01-25] MEDS: FUROSEMIDE 40 MG/4 ML INJECTABLE VIAL IVPUSH SCH ×2 (05:54→13:10)
[2018-01-25] MEDS: INSULIN (LEVEMIR) 100 UNITS/ML UNITS SQ SCH ×2 (06:00→16:56)
[2018-01-25] MEDS: INSULIN (NOVOLOG) ASPART 100 UNITS/ML 10ML VIAL SQ SCH (06:01)
[2018-01-25 06:25] LABS: BASO % 0.4 % (0-2.0); EOS % 3.9 % (0-4.5); HEMATOCRIT 27.9 % (35.4-49); HEMOGLOBIN 9.7 GM/dL (11.7-16.9); LYMPH % 18.9 % (8-40); MCH 28.4 pg (25.7-33.7); MCHC 34.6 g/dl (32.0-35.9); MEAN PLT VOLUME 7.3 fl (7.5-11.1); MONO % 11.1 % (3.8-10.2); NEUT % 65.7 % (42.8-82.8); PLATELET COUNT 275 K/MM3 (134-434); RDW 15.9 % (11.9-15.9); WHITE BLOOD COUNT 10.2 K/mm3 (4.0-10.0)
[2018-01-25 06:50] LABS: CHLORIDE 105 mmol/L (98-107); POTASSIUM 4.3 mmol/L (3.5-5.1); SODIUM 141 mmol/L (136-145)
[2018-01-25 07:01] LABS: ANION GAP 12 (8-16); BLOOD UREA NITROGEN 41 mg/dL (7-18); CO2 24 mmol/L (21-32); CREATININE 1.9 mg/dL (0.7-1.3); GLUCOSE,RANDOM 151 mg/dL (74-106); MAGNESIUM 2.4 mg/dL (1.8-2.4); PHOSPHOROUS 5.4 mg/dL (2.5-4.9)
[2018-01-25] MEDS: CHOLECALCIFEROL (VITAMIN D3) 1,000 UNIT TABLET (FP) PO SCH (09:12)
[2018-01-25] MEDS: CARVEDILOL 25 MG TABLET (FP) PO SCH ×2 (09:12→21:24)
[2018-01-25] MEDS: [UNRECOGNIZED DRUG - OTHER] PO SCH ×2 (09:13→21:24)
[2018-01-25] MEDS: PANTOPRAZOLE SODIUM 40 MG VIAL IVPUSH SCH (09:13)
[2018-01-25] MEDS: AST PO SCH ×2 (09:13→21:24)
[2018-01-25] MEDS: KRILL PO SCH ×2 (09:13→21:24)
[2018-01-25] MEDS: PHOSPHO PO SCH ×2 (09:13→21:24)
[2018-01-25] MEDS: EPA PO SCH ×2 (09:13→21:24)
[2018-01-25] MEDS: DHA PO SCH ×2 (09:13→21:24)
[2018-01-25] MEDS: LOSARTAN POTASSIUM 25 MG TABLET PO SCH ×2 (09:15→21:24)
[2018-01-25] MEDS ORDERED: MULTIVITAMINS (DAILY MVI) TABLET (FP) PO SCH (10:00)
--- NOTE | 2018-01-25 11:12 | PN ---
Progress Note, Physician Chief Complaint: Mr Carolina says he still feels weak and dyspneic with minimal exertion. Says his L knee is hurting today but this is a chronic issue. Denies cp and n/v. Still with significant fatigue - Current Medication List Current Medications: Active Medications Atorvastatin Calcium (Lipitor -) 80 mg PO HS [facility] Last Admin: 01/24/18 22:35 Dose: 80 mg Bisacodyl (Dulcolax -) 20 mg PO ONCE ONE Stop: 01/25/18 15:01 Carvedilol (Coreg -) 25 mg PO BID [facility] Last Admin: 01/25/18 09:12 Dose: 25 mg Cholecalciferol (Vitamin D3 -) 2,000 unit PO DAILY [facility] Last Admin: 01/25/18 09:12 Dose: 2,000 unit Furosemide (Lasix Injection -) 40 mg IVPUSH BID@0600,1400 [facility] Last Admin: 01/25/18 05:54 Dose: 40 mg Insulin Aspart (Novolog Vial Sliding Scale -) 1 vial SQ [facility]; Protocol Insulin Detemir (Levemir Vial) 64 units SQ BIDI [facility] Last Admin: 01/25/18 06:00 Dose: 64 units Losartan Potassium (Cozaar -) 25 mg PO BID [facility] Last Admin: 01/25/18 09:15 Dose: 25 mg Multivitamins/Minerals/Vitamin C (Tab-A-Vit -) 1 tab PO DAILY [facility] Last Admin: 01/25/18 09:13 Dose: 1 tab Non-Formulary Medication (Krill/Om-3/Dha/Epa/Phospho/Ast [Krill Oil 500 Mg Softgel]) 1 each PO BID [facility] Last Admin: 01/25/18 09:13 Dose: 1 each Enqdq-2-Ulrr Ethyl Esters (Lovaza -) 2 gm PO HS [facility] Last Admin: 01/24/18 22:35 Dose: 2 gm Oxycodone HCl (Roxicodone -) 5 mg PO Q6H PRN PRN Reason: PAIN LEVEL 6-10 Last Admin: 01/25/18 02:07 Dose: 5 mg Pantoprazole Sodium (Protonix Iv) 40 mg IVPUSH DAILY [facility] Last Admin: 01/25/18 09:13 Dose: 40 mg - Objective Vital Signs: Vital Signs Temperature 36.6 C 01/25/18 09:00 Pulse Rate 68 01/25/18 09:00 Respiratory Rate 20 01/25/18 09:00 Blood Pressure 150/76 01/25/18 09:00 O2 Sat by Pulse Oximetry (%) 98 01/25/18 09:00 Constitutional: Yes: No Distress, Calm, Obese Cardiovascular: Yes: Regular Rate and Rhythm. No: Gallop, Murmur, Rub Respiratory: Yes: Regular, CTA Bilaterally. No: Rales, Rhonchi, Wheezes Gastrointestinal: Yes: Normal Bowel Sounds, Soft. No: Distention, Tenderness Extremities: Yes: WNL Edema: Yes Edema: LLE: 3+, RLE: 3+ Labs: CBC, BMP 01/25/18 05:30 01/25/18 05:30 INR, PTT INR 1.15 (0.82-1.09) H 01/24/18 05:37 Problem List - Problems (1) Acute on chronic diastolic (congestive) heart failure Code(s): I50.33 - ACUTE ON CHRONIC DIASTOLIC (CONGESTIVE) HEART FAILURE (2) Anemia Code(s): D64.9 - ANEMIA, UNSPECIFIED Qualifiers: Anemia type: other cause Other causes of anemia: acute posthemorrhagic Qualified Code(s): D62 - Acute posthemorrhagic anemia (3) Hematochezia Code(s): K92.1 - MELENA (4) 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 with nephropathy Code(s): E11.21 - TYPE 2 DIABETES MELLITUS WITH DIABETIC NEPHROPATHY Qualifiers: 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 type: type 2 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 halfway insulin use: with halfway use Qualified Code(s): E11.21 - Type 2 diabetes mellitus with diabetic nephropathy; Z79.4 - intermediate (current) use of insulin (5) VILLA (acute kidney injury) Code(s): N17.9 - ACUTE KIDNEY FAILURE, UNSPECIFIED (6) HTN (hypertension) Code(s): I10 - ESSENTIAL (PRIMARY) HYPERTENSION (7) Hyperlipidemia Code(s): E78.5 - HYPERLIPIDEMIA, UNSPECIFIED Assessment/Plan (1) Acute on chronic diastolic (congestive) heart failure Assessment/Plan -case d/w Dr Olivas -contine lasix 40mg IV bid currently -will order daily weights -agree with careful diuresis as do not want to cause intravascular depletion -continue coreg and losartan Code(s): I50.33 - ACUTE ON CHRONIC DIASTOLIC (CONGESTIVE) HEART FAILURE (2) Anemia Assessment/Plan: -secondary to hematochezia -transfused pRBCs with proper response -monitor Code(s): D64.9 - ANEMIA, UNSPECIFIED Qualifiers: Anemia type: other cause Other causes of anemia: acute posthemorrhagic Qualified Code(s): D62 - Acute posthemorrhagic anemia (3) Hematochezia Assessment/Plan: -GI consulted and appreciate assistance -defer colonoscopy to their recommendations Code(s): K92.1 - MELENA (4) 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 with nephropathy Assessment/Plan: -continue levemir 64 units bid -diabetic diet -FSBS and liberal SSI -will not continue metformin currently secondary to creatinine -glucose controlled Code(s): E11.21 - TYPE 2 DIABETES MELLITUS WITH DIABETIC NEPHROPATHY Qualifiers: 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 type: type 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: with 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 use Qualified Code(s): E11.21 - Type 2 diabetes mellitus with diabetic nephropathy; Z79.4 - intermediate (current) use of insulin (5) VILLA (acute kidney injury) Assessment/Plan: -creatinine stable -however elevated from last admission -will find out if this is baseline -may need to stop lasix -monitor Code(s): N17.9 - ACUTE KIDNEY FAILURE, UNSPECIFIED (6) HTN (hypertension) Assessment/Plan: -continue losartan and coreg -also on IV lasix -monitor, adjust if needed Code(s): I10 - ESSENTIAL (PRIMARY) HYPERTENSION (7) Hyperlipidemia Assessment/Plan: -continue current regimen Code(s): E78.5 - HYPERLIPIDEMIA, UNSPECIFIED
[2018-01-25] MEDS: INSULIN SLIDING SCALE (NOVOLOG) 1 VIAL SQ SCH ×3 (11:34→21:25)
[2018-01-25] MEDS ORDERED: BISACODYL 5 MG TABLET.DR (FP) PO ONE ×2 (15:00→16:06)
--- NOTE | 2018-01-25 15:28 | PN ---
Progress Note, Physician History of Present Illness: No acute events overnight. No signs of ongoing gastrointestinal blood loss. No BMs for 2 days. Upon reviewing prior admissions it became evident that the patient had incomplete colonoscopy in 2014. He was found to have a polyp and moderate, to severe diverticulosis with blood in the rectum. - Current Medication List Current Medications: Active Medications Atorvastatin Calcium (Lipitor -) 80 mg PO HS [facility] Last Admin: 01/24/18 22:35 Dose: 80 mg Carvedilol (Coreg -) 25 mg PO BID [facility] Last Admin: 01/25/18 09:12 Dose: 25 mg Cholecalciferol (Vitamin D3 -) 2,000 unit PO DAILY [facility] Last Admin: 01/25/18 09:12 Dose: 2,000 unit Furosemide (Lasix -) 60 mg PO DAILY [facility] Insulin Aspart (Novolog Vial Sliding Scale -) 1 vial SQ [facility]; Protocol Last Admin: 01/25/18 11:34 Dose: Not Given Insulin Detemir (Levemir Vial) 64 units SQ BIDI [facility] Last Admin: 01/25/18 06:00 Dose: 64 units Losartan Potassium (Cozaar -) 25 mg PO BID [facility] Last Admin: 01/25/18 09:15 Dose: 25 mg Multivitamins/Minerals/Vitamin C (Tab-A-Vit -) 1 tab PO DAILY [facility] Last Admin: 01/25/18 09:13 Dose: 1 tab Non-Formulary Medication (Krill/Om-3/Dha/Epa/Phospho/Ast [Krill Oil 500 Mg Softgel]) 1 each PO BID [facility] Last Admin: 01/25/18 09:13 Dose: 1 each Qmais-5-Gxsg Ethyl Esters (Lovaza -) 2 gm PO [facility] Last Admin: 01/24/18 22:35 Dose: 2 gm Oxycodone HCl (Roxicodone -) 5 mg PO Q6H PRN PRN Reason: PAIN LEVEL 6-10 Last Admin: 01/25/18 02:07 Dose: 5 mg Pantoprazole Sodium (Protonix Iv) 40 mg IVPUSH DAILY [facility] Last Admin: 01/25/18 09:13 Dose: 40 mg - Objective Vital Signs: Vital Signs Temperature 98 F 01/25/18 09:00 Pulse Rate 68 01/25/18 09:00 Respiratory Rate 20 01/25/18 09:00 Blood Pressure 150/76 01/25/18 09:00 O2 Sat by Pulse Oximetry (%) 98 01/25/18 09:00 Constitutional: Yes: Well Nourished, No Distress, Calm Eyes: Yes: Conjunctiva Clear HENT: Yes: Atraumatic Neck: Yes: Supple Cardiovascular: Yes: Regular Rate and Rhythm Respiratory: Yes: Regular Gastrointestinal: Yes: Normal Bowel Sounds, Soft. No: Ascites, Distention, Tenderness, Tenderness, Epigastrium, Tenderness, Rebound, Vomiting Neurological: Yes: Alert, Oriented Labs: CBC, BMP 01/25/18 05:30 01/25/18 05:30 INR, PTT INR 1.15 (0.82-1.09) H 01/24/18 05:37 Laboratory Last Values WBC 10.2 K/mm3 (4.0-10.0) H 01/25/18 05:30 RBC 3.40 M/mm3 (4.00-5.60) L 01/25/18 05:30 Hgb 9.7 GM/dL (11.7-16.9) L 01/25/18 05:30 Hct 27.9 % (35.4-49) L 01/25/18 05:30 MCV 82.0 fl (80-96) 01/25/18 05:30 MCH 28.4 pg (25.7-33.7) 01/25/18 05:30 MCHC 34.6 g/dl (32.0-35.9) 01/25/18 05:30 RDW 15.9 % (11.9-15.9) 01/25/18 05:30 Plt Count 275 K/MM3 (134-434) 01/25/18 05:30 MPV 7.3 fl (7.5-11.1) L 01/25/18 05:30 Absolute Neuts (auto) 6.7 # 01/25/18 05:30 Neutrophils % 65.7 % (42.8-82.8) 01/25/18 05:30 Lymphocytes % 18.9 % (8-40) 01/25/18 05:30 Monocytes % 11.1 % (3.8-10.2) H 01/25/18 05:30 Eosinophils % 3.9 % (0-4.5) 01/25/18 05:30 Basophils % 0.4 % (0-2.0) 01/25/18 05:30 Nucleated RBC % 0 % (0-0) 01/25/18 05:30 PT with INR 13.00 SEC (9.7-13.0) 01/24/18 05:37 INR 1.15 (0.82-1.09) H 01/24/18 05:37 Sodium 141 mmol/L (136-145) 01/25/18 05:30 Potassium 4.3 mmol/L (3.5-5.1) 01/25/18 05:30 Chloride 105 mmol/L (98-107) 01/25/18 05:30 Carbon Dioxide 24 mmol/L (21-32) 01/25/18 05:30 Anion Gap 12 (8-16) 01/25/18 05:30 BUN 41 mg/dL (7-18) H 01/25/18 05:30 Creatinine 1.9 mg/dL (0.7-1.3) H 01/25/18 05:30 Creat Clearance w eGFR 40.53 (>60) 01/24/18 05:37 POC Glucometer 144 UNITS (80-120) 01/25/18 11:34 Random Glucose 151 mg/dL (74-106) H 01/25/18 05:30 Hemoglobin A1c % 6.7 % (4.8-6.0) H D 01/24/18 05:37 Calcium 9.0 mg/dL (8.5-10.1) 01/25/18 05:30 Phosphorus 5.4 mg/dL (2.5-4.9) H D 01/25/18 05:30 Magnesium 2.4 mg/dL (1.8-2.4) 01/25/18 05:30 Ferritin 44.1 ng/ml (16.4-293.9) 01/25/18 05:30 Total Bilirubin 0.9 mg/dL (0.2-1.0) D 01/24/18 05:37 AST 13 U/L (15-37) L 01/24/18 05:37 ALT 20 U/L (12-78) 01/24/18 05:37 Alkaline Phosphatase 98 U/L (45-117) 01/24/18 05:37 B-Natriuretic Peptide 857.81 pg/ml (5-125) H 01/23/18 21:50 Total Protein 7.0 g/dl (6.4-8.2) 01/24/18 05:37 Albumin 3.4 g/dl (3.4-5.0) 01/24/18 05:37 Urine Color Ltyellow 01/23/18 23:05 Urine Appearance Clear 01/23/18 23:05 Urine pH 5.0 (5.0-8.0) 01/23/18 23:05 Ur Specific Marceline 1.015 (1.001-1.035) 01/23/18 23:05 Urine Protein 3+ (NEGATIVE) H 01/23/18 23:05 Urine Glucose (UA) 1+ (NEGATIVE) H 01/23/18 23:05 Urine Ketones Negative (NEGATIVE) 01/23/18 23:05 Urine Blood Negative (NEGATIVE) 01/23/18 23:05 Urine Nitrite Negative (NEGATIVE) 01/23/18 23:05 Urine Bilirubin Negative (<2.0 mg/dL) 01/23/18 23:05 Urine Urobilinogen Negative mg/dL (0.2-1.0) 01/23/18 23:05 Ur Leukocyte Esterase Negative (NEGATIVE) 01/23/18 23:05 Urine WBC (Auto) 3 /hpf (3-5) 01/23/18 23:05 Urine RBC (Auto) 2 /hpf (0-3) 01/23/18 23:05 Hyaline Casts 5 /lpf 01/23/18 23:05 Urine Mucus Rare 01/23/18 23:05 Stool Occult Blood Negative (NEGATIVE) 01/23/18 21:35 Blood Type A POSITIVE 01/23/18 21:50 Antibody Screen Negative 01/23/18 21:50 Crossmatch See Detail 01/23/18 21:50 Problem List - Problems (1) Hematochezia Code(s): K92.1 - MELENA (2) Blood in stool Code(s): K92.1 - MELENA (3) Blood in stool, allen Code(s): K92.1 - MELENA Assessment/Plan Clinically stable. Suspect recent diverticular bleed. Incomplete colonoscopy in 2014. Plan colonoscopy for tomorrow. Discussed with the patient.
[2018-01-25] MEDS ORDERED: PEG3350/SOD SULF,BICARB,CL/KCL 4,000 ML SOLN.RECON PO ONE (16:00)
[2018-01-25] MEDS ORDERED: PEG 3350/NA SULF BICARB CL/KCL 4000 ML SOLN.RECON PO ONE (16:06)
--- NOTE | 2018-01-25 16:21 | PN ---
Progress Note, Physician History of Present Illness: seen and examined today in nad. states he has been urinating frequently with lasix, LE edema slightly improved. no overnight events. no new complaints. - Current Medication List Current Medications: Active Medications Atorvastatin Calcium (Lipitor -) 80 mg PO HS [facility] Last Admin: 01/24/18 22:35 Dose: 80 mg Carvedilol (Coreg -) 25 mg PO BID [facility] Last Admin: 01/25/18 09:12 Dose: 25 mg Cholecalciferol (Vitamin D3 -) 2,000 unit PO DAILY [facility] Last Admin: 01/25/18 09:12 Dose: 2,000 unit Furosemide (Lasix -) 60 mg PO DAILY [facility] Insulin Aspart (Novolog Vial Sliding Scale -) 1 vial SQ [facility]; Protocol Last Admin: 01/25/18 11:34 Dose: Not Given Insulin Detemir (Levemir Vial) 64 units SQ BIDI [facility] Last Admin: 01/25/18 06:00 Dose: 64 units Losartan Potassium (Cozaar -) 25 mg PO BID [facility] Last Admin: 01/25/18 09:15 Dose: 25 mg Multivitamins/Minerals/Vitamin C (Tab-A-Vit -) 1 tab PO DAILY [facility] Last Admin: 01/25/18 09:13 Dose: 1 tab Non-Formulary Medication (Krill/Om-3/Dha/Epa/Phospho/Ast [Krill Oil 500 Mg Softgel]) 1 each PO BID [facility] Last Admin: 01/25/18 09:13 Dose: 1 each Ojvim-5-Rwkj Ethyl Esters (Lovaza -) 2 gm PO HS [facility] Last Admin: 01/24/18 22:35 Dose: 2 gm Oxycodone HCl (Roxicodone -) 5 mg PO Q6H PRN PRN Reason: PAIN LEVEL 6-10 Last Admin: 01/25/18 02:07 Dose: 5 mg Pantoprazole Sodium (Protonix Iv) 40 mg IVPUSH DAILY [facility] Last Admin: 01/25/18 09:13 Dose: 40 mg - Objective Vital Signs: Vital Signs Temperature 98.4 F 01/25/18 14:00 Pulse Rate 69 01/25/18 14:00 Respiratory Rate 20 01/25/18 09:00 Blood Pressure 147/89 01/25/18 14:00 O2 Sat by Pulse Oximetry (%) 98 01/25/18 09:00 Constitutional: Yes: No Distress, Calm Eyes: Yes: Conjunctiva Clear, EOM Intact, PERRL HENT: Yes: Atraumatic, Normocephalic Neck: Yes: Supple, Trachea Midline Cardiovascular: Yes: Regular Rate and Rhythm, S1, S2. No: Bradycardia, Tachycardia, Pulse Irregular, Bruit, JVD, Gallop, Murmur, Rub, S3, S4, Varicosities Respiratory: Yes: Regular. No: Rales, Rhonchi, SOB, Wheezes Gastrointestinal: Yes: Normal Bowel Sounds, Soft. No: Distention, Tenderness Musculoskeletal: Yes: Back Pain Edema: Yes Edema: LLE: 2+, RLE: 2+ Peripheral Pulses WNL: Yes Peripheral Pulses: Left Doralis Pedis: 2+, Right Dorsalis Pedis: 2+ Neurological: Yes: Alert, Oriented Psychiatric: Yes: Alert, Oriented Labs: CBC, BMP 01/25/18 05:30 01/25/18 05:30 INR, PTT INR 1.15 (0.82-1.09) H 01/24/18 05:37 - ....Imaging Chest X-ray: Report Reviewed, Image Reviewed EKG: Report Reviewed, Image Reviewed Other: Report Reviewed, Image Reviewed (tele-NSR, no events recorded) Assessment/Plan 67 year old man h/o HTN, DMII, CKD, CAD s/p CABG x4 after [facility]stem[facility] 09/[facility] , nuclear stress test 09/2016 after admission for chest pain, nuclear stress test showed inferior/inferoapical ischemia LVEF 77%, chronic stable angina on NTG patch at home, TIA 2000, carotid stenosis s/p CEA 2007, [place], bleeding hemorrhoids s/p 2 complicated colonoscopies in the past, chronic cervical and lumbar disc disease, multiple surgeries and chronic pain, current CKD with nephrotic range proteinurea and chronic b/l LE edema admitted with rectal bleeding and worsening of chronic dyspnea on exertion. Pt was seen and examined today in nad. States that aside from his daily NTG patch he has taken NTG SL approximately 7 times over the past month. Denies any recent change in his chronic angina. His dyspnea has worsened as above. LE edema has slightly worsened. No pnd, orthopnea. No lightheadedness, dizziness, syncope, or near syncope. stress test 09/2016 inferior/inferoapical ischemia LVEF 77%, managed medically due to rectal bleeding and CKD ECHO 01/24/18- Normal LV systolic function, mod LVH, mild AR, mild TR SOB/Dyspnea-multifactorial, chronic dyspnea with superimposed anemia -cardiac enzymes wnl -Likely multifactorial with a compenent of Chronic diastolic CHF, dose not appear significantly decompensated -b/L LE edema likely in large part due to nephrotic syndrome and possible lymphedema -echo showed Normal LV systolic function and no sig valvular abnl as above -would transition back to po Lasix to avoid intravascular depletion as edema in large part due to 3rd spacing and lymphedema as opossed to volume overload -no cardiac contraindication to planned endoscopy -ASA was held for bleeding and can be held for endoscopy with plan to resume as soon as safe to -cont bblocker, ARB -ok to dc tele CAD-h/o CABG and chronic angina with abnormal stress test last year as above managed medically -cont bblocker, ARB, statin -holding ASA for now for rectal bleeding and endoscopy, to be resumed when safe -cont home NTG -close outpatient fup
--- NOTE | 2018-01-25 16:40 | PN ---
Progress Note (short form) - Note Progress Note: The risks, benefits, and alternatives to the colonoscopy were discussed with the patient and his . They verbalized understanding and the patient has elected not to have the exam for fear of possible perforation, which apparently occurred during his first colonoscopy. Follow up with GI as OP to explore noninvasive alternatives to the colonsocopy. Diabetic, low salt diet. Problem List - Problems (1) Hematochezia Code(s): K92.1 - MELENA (2) Blood in stool Code(s): K92.1 - MELENA (3) Blood in stool, allen Code(s): K92.1 - MELENA
[2018-01-25] MEDS ORDERED: INSULIN (NOVOLOG) ASPART 100 UNITS/ML 10ML VIAL ONE (20:16)
[2018-01-25] MEDS ORDERED: OMEGA-3 ACID ETHYL ESTERS (FATTY-ACIDS) 1 GM CAPSULE (FP) PO SCH (22:00)
[2018-01-25] MEDS ORDERED: ATORVASTATIN CA 80 MG TABLET (FP) PO SCH (22:00)
[2018-01-26] MEDS: oxyCODONE HCL 5 MG TABLET PO PRN ×2 (02:27→07:35)
[2018-01-26] MEDS: INSULIN SLIDING SCALE (NOVOLOG) 1 VIAL SQ SCH ×2 (06:10→11:48)
[2018-01-26] MEDS ORDERED: INSULIN (LEVEMIR) 100 UNITS/ML UNITS SQ SCH (07:00)
[2018-01-26 08:06] LABS: SERUM IRON SATURATION 14 % (15-55); TOTAL IRON BINDING CAPACITY 242 ug/dL (250-450); UIBC 208 ug/dL (111-343)
[2018-01-26 08:09] LABS: BASO % 0.5 % (0-2.0); EOS % 2.7 % (0-4.5); HEMATOCRIT 32.3 % (35.4-49); HEMOGLOBIN 10.7 GM/dL (11.7-16.9); LYMPH % 16.8 % (8-40); MCH 27.4 pg (25.7-33.7); MCHC 33.1 g/dl (32.0-35.9); MEAN CELL VOLUME 82.8 fl (80-96); MEAN PLT VOLUME 7.3 fl (7.5-11.1); PLATELET COUNT 334 K/MM3 (134-434); RDW 16.3 % (11.9-15.9); WHITE BLOOD COUNT 16.2 K/mm3 (4.0-10.0)
[2018-01-26 08:40] LABS: ANION GAP 8 (8-16); BLOOD UREA NITROGEN 43 mg/dL (7-18); CALCIUM 9.3 mg/dL (8.5-10.1); CHLORIDE 103 mmol/L (98-107); CO2 27 mmol/L (21-32); CREATININE 2.2 mg/dL (0.7-1.3); GLUCOSE,RANDOM 110 mg/dL (74-106); MAGNESIUM 2.1 mg/dL (1.8-2.4); POTASSIUM 4.5 mmol/L (3.5-5.1); SODIUM 138 mmol/L (136-145)
[2018-01-26 09:20] VITALS: BP 131/71; PULSE 82; TEMP 98.3
[2018-01-26] MEDS: LOSARTAN POTASSIUM 25 MG TABLET PO SCH (09:38)
[2018-01-26] MEDS: CARVEDILOL 25 MG TABLET (FP) PO SCH (09:38)
[2018-01-26] MEDS: KRILL PO SCH (09:39)
[2018-01-26] MEDS: [UNRECOGNIZED DRUG - OTHER] PO SCH (09:39)
[2018-01-26] MEDS: AST PO SCH (09:39)
[2018-01-26] MEDS: PHOSPHO PO SCH (09:39)
[2018-01-26] MEDS: EPA PO SCH (09:39)
[2018-01-26] MEDS: DHA PO SCH (09:39)
[2018-01-26] MEDS ORDERED: FUROSEMIDE 40 MG TABLET (FP) PO SCH ×2 (10:00)
[2018-01-26] MEDS ORDERED: MULTIVITAMINS (DAILY MVI) TABLET (FP) PO SCH (10:00)
[2018-01-26] MEDS ORDERED: PANTOPRAZOLE SODIUM 40 MG VIAL IVPUSH SCH (10:00)
[2018-01-26] MEDS ORDERED: CHOLECALCIFEROL (VITAMIN D3) 1,000 UNIT TABLET (FP) PO SCH (10:00)
--- NOTE | 2018-01-26 11:53 | DS ---
Physical Examination Vital Signs: Vital Signs Temperature 36.8 C 01/26/18 09:00 Pulse Rate 82 01/26/18 09:00 Respiratory Rate 20 01/26/18 09:00 Blood Pressure 131/71 01/26/18 09:00 O2 Sat by Pulse Oximetry (%) 98 01/26/18 09:00 Constitutional: Yes: No Distress, Calm, Obese Cardiovascular: Yes: Regular Rate and Rhythm. No: Gallop, Murmur, Rub Respiratory: Yes: Regular, CTA Bilaterally. No: Rales, Rhonchi, Wheezes Gastrointestinal: Yes: Normal Bowel Sounds, Soft. No: Distention, Tenderness Extremities: Yes: WNL Edema: Yes Edema: LLE: 2+, RLE: 2+ Labs: CBC, BMP 01/26/18 07:40 01/26/18 07:40 Discharge Summary Reason For Visit: SECONDARY ANEMIA Current Active Problems VILLA (acute kidney injury) (Acute) Acute on chronic diastolic (congestive) heart failure (Acute) Anemia (Acute) Blood in stool (Acute) Blood in stool, allen (Acute) Hematochezia (Acute) Hospital Course: (1) Acute on chronic diastolic (congestive) heart failure Code(s): I50.33 - ACUTE ON CHRONIC DIASTOLIC (CONGESTIVE) HEART FAILURE (2) Anemia Code(s): D64.9 - ANEMIA, UNSPECIFIED Qualifiers: Anemia type: other cause Other causes of anemia: acute posthemorrhagic Qualified Code(s): D62 - Acute posthemorrhagic anemia (3) Hematochezia Code(s): K92.1 - MELENA (4) 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 with nephropathy Code(s): E11.21 - TYPE 2 DIABETES MELLITUS WITH DIABETIC NEPHROPATHY Qualifiers: 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 type: type 2 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 nursing home insulin use: with automobile radio 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 He was admitted to the hospital and transfused. He was given IV lasix and was diuresed. His amlodipine was stopped secondary to leg edema. GI was consulted and colonoscopy discussed, patient declines at this time. Currently he is no longer bleeding and his breathing status improved. He is safe for discharge home. 32 minutes spent in preparation of this discharge Condition: Fair - Instructions Diet, Activity, Other Instructions: resume previous diet and activity Referrals: Bianca Humphries DO [Staff Physician] - German Kurtz MD [Primary Care Provider] - Disposition: HOME - Home Medications Comprehensive Discharge Medication List: Ambulatory Orders Aspirin [ASA -] 81 mg PO DAILY 09/20/15 Atorvastatin Ca [Lipitor] 80 mg PO HS 09/20/15 Carvedilol 25 mg PO BID 09/20/15 Cholecalciferol (Vitamin D3) [D3-2000] 2,000 unit PO DAILY 09/20/15 Insulin (Levemir) [Levemir Vial] 64 unit SQ BID 09/20/15 Nitroglycerin Sublingual [Nitrostat -] 0.4 mg SL [id number] PRN #30 tab 10/07/16 [place]-3 Acid Ethyl Esters [Lovaza -] 2 gm PO HS cap 10/07/16 Exenatide [Byetta] 10 mcg SQ BID 02/14/17 Losartan Potassium [Cozaar -] 25 mg PO BID 02/14/17 oxyCODONE HCL [Roxicodone -] 10 mg PO Q4H PRN 02/14/17 Krill/Om-3/Dha/Epa/Phospho/Ast [Krill Oil 500 mg Softgel] 1 each PO BID Multivit-Min/FA/Lycopen/Lutein [Centrum Silver Men Tablet] 1 each PO DAILY 11/22 Nitroglycerin Patch [Nitro-Dur Patch -] 0.4 mg TD DAILY 11/22/17 Furosemide [Lasix -] 60 mg PO DAILY #60 tablet 01/26/18
== END 2018-01-26 13:09 | disposition home or self-care (01) | DRG 291 ==
LOC: JER 20:19 → JERBED 01-24 01:34 → J4W 01-24 06:39 → J7W 01-25 19:26
PROVIDERS: ADMIT Internal Medicine; ATTEND Internal Medicine
PROC: 30233N1 Transfusion of Nonautologous Red Blood Cells into Peripheral Vein, Percutaneous Approach (ICD-10-PCS; principal; 2018-01-23)
DX: I13.0 Hypertensive heart and chronic kidney disease with heart failure and stage 1 through stage 4 chronic kidney disease, or unspecified chronic kidney disease (principal); I50.33 Acute on chronic diastolic (congestive) heart failure; D62 Acute posthemorrhagic anemia; K92.1 Melena; N17.9 Acute kidney failure, unspecified; I25.110 Atherosclerotic heart disease of native coronary artery with unstable angina pectoris; E11.22 Type 2 diabetes mellitus with diabetic chronic kidney disease; E11.21 Type 2 diabetes mellitus with diabetic nephropathy; N18.9 Chronic kidney disease, unspecified; I25.2 Old myocardial infarction; I48.91 Unspecified atrial fibrillation; K58.8 Other irritable bowel syndrome; K21.9 Gastro-esophageal reflux disease without esophagitis; K63.5 Polyp of colon; E78.00 Pure hypercholesterolemia, unspecified; K64.8 Other hemorrhoids; M54.5 Low back pain; Z87.442 Personal history of urinary calculi; Z87.891 Personal history of nicotine dependence; Z85.47 Personal history of malignant neoplasm of testis; Z79.4 Long term (current) use of insulin; Z95.1 Presence of aortocoronary bypass graft; Z86.73 Personal history of transient ischemic attack (TIA), and cerebral infarction without residual deficits; Z88.0 Allergy status to penicillin
CPT/HCPCS: 36415; 36430; 71046-TC-FY; 80048; 80053; 81003; 81015; 82272; 82728; 82962; 83036; 83540; 83550; 83735; 83880; 84100; 84439; 84443; 85025; 85610; 86850; 86900; 86901; 86922; 93005; 93010; 93306-TC; 97116-GP; 97161-GP; 99282-25; P9038; P9058

== ENCOUNTER 2018-07-30 08:14 | Day surgery (SDC) | payer BC, OTHER ==
[2018-07-27 13:40] VITALS: BMI 39.9
[2018-07-30 08:44] LABS: BASO % 0.7 % (0-2.0); HEMATOCRIT 32.1 % (35.4-49); HEMOGLOBIN 10.3 GM/dL (11.7-16.9); LYMPH % 18.4 % (8-40); MCH 28.5 pg (25.7-33.7); MCHC 32.1 g/dl (32.0-35.9); MEAN CELL VOLUME 88.8 fl (80-96); MEAN PLT VOLUME 7.7 fl (7.5-11.1); MONO % 9.1 % (3.8-10.2); NEUT % 68.8 % (42.8-82.8); PLATELET COUNT 240 K/MM3 (134-434); RBC 3.61 M/mm3 (4.00-5.60); RDW 15.6 % (11.9-15.9); WHITE BLOOD COUNT 10.6 K/mm3 (4.0-10.0)
[2018-07-30 08:59] LABS: INR 0.93 (0.83-1.09)
[2018-07-30 09:02] LABS: ACTIVATED PTT 29.1 SECONDS (25.2-36.5)
[2018-07-30 09:08] LABS: ALBUMIN 3.4 g/dl (3.4-5.0); ALK PHOS 101 U/L (45-117); ANION GAP 9 MMOL/L (8-16); BILIRUBIN,TOTAL 0.4 mg/dL (0.2-1); BLOOD UREA NITROGEN 64 mg/dL (7-18); CALCIUM 9.6 mg/dL (8.5-10.1); CHLORIDE 107 mmol/L (98-107); CO2 25 mmol/L (21-32); CREATININE 2.5 mg/dL (0.55-1.3); GLUCOSE,RANDOM 213 mg/dL (74-106); POTASSIUM 4.5 mmol/L (3.5-5.1); SGOT/AST 13 U/L (15-37); SGPT/ALT 21 U/L (13-61); SODIUM 141 mmol/L (136-145); TOT PROT 7.3 g/dl (6.4-8.2)
[2018-07-30] MEDS ORDERED: LABETALOL HCL 5 MG/1 ML (100MG/20 ML VIAL) ONE (09:57)
[2018-07-30 15:51] VITALS: BP 140/70; PULSE 76; TEMP 98.3
--- NOTE | 2018-08-16 18:40 | PATH ---
Surgical Pathology Report Patient Name: RIDGE AVILA [facility]. Rec. #: [id number] /Age/Gender: 1950 (Age: 67) / M Account: [id number] Location: RADIOLOGY INTER Taken: 07/30/2018 Received: 07/30/2018 Reported: 08/16/2018 Physicians: Torres Vergara M.D. Specimen(s) Received RENAL BIOPSY FOR SEND OUT Clinical History 67-year-old male with diabetes mellitus, hypertension and proteinuria Intraoperative Consult Diagnosis Renal biopsy: Glomeruli present. Masoud De La O M.D., 07/30/2018 Final Diagnosis RENAL, BIOPSY: NODULAR DIABETIC GLOMERULOSCLEROSIS, MODERATE. TUBULAR ATROPHY AND INTERSTITIAL FIBROSIS, MODERATE. ARTERIOLOSCLEROSIS WITH HYALINOSIS, SEVERE. COMMENT: The immunofluorescence findings provide evidence against immune complex mediated and dysproteinemia related renal diseases. The weak intensity of linear staining of glomerular and tubular basement membranes for IgG and albumin is a common finding in diabetic patients. Case sent for consultation to Dr. Serg Richardson from [place], [place] ([id number]), the diagnosis above reflects his opinion. See complete report ([id number]) from [place], [place] for additional details. Electronically Signed Bianca Carpenter M.D. Gross Description Received in saline labeled "renal biopsy," is a 1.2 cm in length x 0.1 cm in diameter mendiola-red, cylindrical portion of soft tissue. An intraoperative consultation is performed. The specimen is divided, placed in 10% buffered formalin, Ke fixative and glutaraldehyde. The specimen is sent to [facility] for further studies. DL/07/30/2018 saudi07/30/2018
== END 2018-07-30 15:45 | disposition home or self-care (01) ==
LOC: JRADIR 08:14
PROVIDERS: ATTEND Internal Medicine Nephrology
PROC: 0TB03ZX Excision of Right Kidney, Percutaneous Approach, Diagnostic (ICD-10-PCS; principal; 2018-07-30)
DX: I12.9 Hypertensive chronic kidney disease with stage 1 through stage 4 chronic kidney disease, or unspecified chronic kidney disease (principal); E11.22 Type 2 diabetes mellitus with diabetic chronic kidney disease; N18.9 Chronic kidney disease, unspecified; R80.9 Proteinuria, unspecified
CPT/HCPCS: 36415; 50200; 76098-TC-FY; 76942-TC; 80053; 84100; 85025; 85610; 85730; 87899; 88300-TC

== ENCOUNTER 2018-08-19 08:34 | Inpatient (IN) | payer BC, OTHER ==
[2018-08-19] MEDS ORDERED: ASPIRIN 81 MG CHEWABLE TABLETS PO ONE (09:12)
--- NOTE | 2018-08-19 09:17 | PDOC ---
History of Present Illness - General Chief Complaint: Chest Pain Stated Complaint: CHEST PAIN Time Seen by Provider: 08/19/18 09:00 History Source: Patient Exam Limitations: No Limitations - History of Present Illness Initial Comments: 67 yo M w a sig pmh of quadruple bypass, CO, CAD, TIA (2010), CABG (2016), IDDM , A-Fib, restless leg syndrome, GERD, HTN, HLD, Renal Colic, Testicular cancer presents to ED stating that he woke up last night at 3 am with crushing left sided chest pain which felt like a sledge hammer on his chest. The pain radiated to the left shoulder, down the left arm, to the left jaw and was associated with mild nausea but no emesis. He does not remember if he was sweating during the event. He took two nitro's and then his applied a nitro patch. This morning the pain had not resolved so he came into the ED to be evaluated. Here in the ED he is no longer experiencing chest pain but he is still experiencing Left shoulder numbness. He also endorses a headache and some left face numbness. Denies recent fevers, chills, infections, dysuria, frequency, urgency, back pain , blurry vision. PCP: German Kurtz Order Caller: Mohit Olivas Allergies: Penicillins, sumatriptan, aspartane, tryptophan Social Hx: Denies smoking, drinking, or other substance usage. Past History - Past Medical History Allergies/Adverse Reactions: Allergies Allergy/AdvReac Type Severity Reaction Status Date / Time Penicillins Allergy Rash Verified 08/19/18 08:45 sumatriptan [From Imitrex] Allergy Verified 08/19/18 08:45 sumatriptan succinate Allergy Verified 08/19/18 08:45 [From Imitrex] ASPARTANE Allergy Severe HEADACHE Uncoded 08/19/18 08:45 TRYPTOPHAN Allergy Intermediate DIARRHEA/VO Uncoded 08/19/18 08:45 MITING Home Medications: Ambulatory Orders Aspirin [ASA -] 81 mg PO DAILY 09/20/15 Atorvastatin Ca [Lipitor] 80 mg PO HS 09/20/15 Carvedilol 25 mg PO BID 09/20/15 Cholecalciferol (Vitamin D3) [D3-2000] 2,000 unit PO DAILY 09/20/15 Insulin (Levemir) [Levemir Vial] 70 unit SQ BID 09/20/15 Nitroglycerin Sublingual [Nitrostat -] 0.4 mg SL [id number] PRN #30 tab 10/07/16 Exenatide [Byetta] 10 mcg SQ BID 02/14/17 Losartan Potassium [Cozaar -] 50 mg PO BID 02/14/17 oxyCODONE HCL [Roxicodone -] 10 mg PO Q4H PRN 02/14/17 Krill/Om-3/Dha/Epa/Phospho/Ast [Krill Oil 500 mg Softgel] 1 each PO BID Multivit-Min/FA/Lycopen/Lutein [Centrum Silver Men Tablet] 1 each PO DAILY 11/22 Nitroglycerin Patch [Nitro-Dur Patch -] 0.4 mg TD DAILY 11/22/17 Furosemide [Lasix -] 60 mg PO DAILY #60 tablet 01/26/18 Amlodipine Besylate 5 mg PO DAILY 07/27/18 Ferrous Sulfate [Iron] 325 mg PO DAILY 07/27/18 Hydroxyzine HCl 25 mg PO BID 07/27/18 [place]-3 Acid Ethyl Esters [Lovaza -] 1,000 mg PO HS 07/27/18 Anemia: No Asthma: No Cancer: Yes (TESTICULAR ca with lymph node dissection) Cardiac Disorders: Yes (CO 2014) CVA: Yes (TIA 05/2011) COPD: No CHF: No Dementia: No Diabetes: Yes (IDDM) GI Disorders: Yes (GASTRITIS, SPASTIC COLON, GERD; COLON POLYPS) Disorders: Yes (kidney failure) HTN: Yes Hypercholesterolemia: Yes Kidney Stones: Yes Liver Disease: No Seizures: No Thyroid Disease: No - Surgical History Appendectomy: No Cardiac Surgery: Yes (quad bypass 2014) Cholecystectomy: Yes Lung Surgery: No Neurologic Surgery: Yes (HERNIATED DISC; BRAIN SURGERY ) Orthopedic Surgery: Yes (KNEE ARTHROSCOPY R/L) - Immunization History Immunization Up to Date: Yes - Suicide/Smoking/Psychosocial Hx Smoking Status: No Smoking History: Never smoked Have you smoked in the past 12 months: No Number of Cigarettes Smoked Daily: 0 If you are a former smoker, when did you quit?: 40 years aqo Cigars Per Day: 0 Hx Alcohol Use: No Drug/Substance Use Hx: No Substance Use Type: Marijuana Hx Substance Use Treatment: No Cardiac Specific PMH - Complaint Specific PMHX Abdominal Aortic Aneurysm: No Angina: No Cardiac Arrhythmia: No Cardiac Stent: No GERD: No Pacemaker: No Pulmonary Embolus: No Valvular Heart Disease: No Peripheral Vascular Disease: No Review of Systems - Review of Systems Able to Perform ROS?: Yes Constitutional: Yes: Loss of Appetite, Weakness. No: Chills, Diaphoresis, Fever , Malaise HEENTM: Yes: Eye Pain. No: Blurred Vision, Recent change in vision, Double Vision, Mouth Pain Respiratory: Yes: Shortness of Breath. No: Cough, Stridor, Wheezing, Productive cough Cardiac (ROS): Yes: Chest Pain, Irregular Heart Rate, Lightheadedness, Palpitations, Chest Tightness. No: Edema, Syncope ABD/GI: Yes: Nausea. No: Abdominal Distended, Constipated, Diarrhea, Poor Appetite, Poor Fluid Intake, Vomiting : No: Burning, Dysuria, Discharge Musculoskeletal: Yes: Joint Pain, Muscle Pain, Neck Pain. No: Back Pain Integumentary: No: Bruising, Change in Color, Change in Hair/Nails, Dryness, Erythema Neurological: Yes: Headache. No: Numbness, Paresthesia, Unsteady Gait Psychiatric: No: Anxiety, Depression Endocrine: No: Excessive Sweating, Flushing, Intolerance to Cold, Intolerance to Heat Hematologic/Lymphatic: Yes: Anemia, Bleeding Diathesis *Physical Exam - Vital Signs Last Vital Signs Temp Pulse Resp BP Pulse Ox 98.1 F 76 20 163/56 L 99 08/19/18 08:40 08/19/18 08:40 08/19/18 08:40 08/19/18 08:40 08/19/18 08:40 - Physical Exam General Appearance: Yes: Nourished, Appropriately Dressed, Apparent Distress, Moderate Distress, Obese HEENT: positive: EOMI, LOUISA, Normal ENT Inspection, Normal Voice Neck: positive: Supple. negative: Rigid, Decreased range of motion, Lymphadenopathy (R), Lymphadenopathy (L) Respiratory/Chest: positive: Chest Tender, Lungs Clear, Normal Breath Sounds, Rapid RR. negative: Respiratory Distress, Decreased Breath Sounds, Crackles, Rales, Rhonchi, Stridor, Wheezing Cardiovascular: positive: Regular Rhythm, Regular Rate, S1, S2. negative: Edema , JVD Vascular Pulses: Dorsalis-Pedis (R): 1+, Doralis-Pedis (L): 1+ Gastrointestinal/Abdominal: positive: Normal Bowel Sounds, Distended. negative : Tender, Guarding, Rebound Rectal Exam: positive: deferred Lymphatic: negative: Adenopathy Musculoskeletal: positive: Normal Inspection. negative: CVA Tenderness, Decreased Range of Motion Extremity: positive: Normal Capillary Refill, Normal Inspection, Normal Range of Motion Integumentary: positive: Normal Color, Dry, Warm Neurologic: positive: verification engineer II-XII NML intact, Fully Oriented, Alert, Normal Mood/ Affect Heart Score/ECG Review - History History: Highly suspicious - Electrocardiogram EKG: Non specific repolarization disturbance - Age Age: >/= 65 - Risk Factors Risk Factors Heart Score: Yes Hx Hypercholesterolemia, Yes Hx Hypertension, Yes Hx Diabetes, Yes Positive family hx of cardiac disease, Yes Hx Obesity Based on the list above the patient has:: >/=3 risk factors or Hx atherosclerotic disease - Troponin Troponin: </= normal limit - Score Heart Score - Total: 7 - ECG Intrepretation Rhythm: Regular Rhythm (1st degree block) - [place]: Normal - P and LA Prolonged LA Interval: 1st Degree Block(>20mils) - QRS Widened: RBBB - ECG Impressions Normal ECG: No Non-specific ST Elevation: No Moderate Sedation - Procedure Monitoring Vital Signs: Procedure Monitoring Vital Signs Temperature 98.1 F 08/19/18 08:40 Pulse Rate 76 08/19/18 08:40 Respiratory Rate 20 08/19/18 08:40 Blood Pressure 163/56 L 08/19/18 08:40 O2 Sat by Pulse Oximetry (%) 99 08/19/18 08:40 ED Treatment Course - LABORATORY CBC & Chemistry Diagram: 08/19/18 10:22 08/19/18 09:45 - ADDITIONAL ORDERS Additional order review: Laboratory Results 08/19/18 08/19/18 08/19/18 10:06 09:45 09:45 PT with INR INR PTT (Actin FS) Sodium Potassium Chloride Carbon Dioxide Anion Gap BUN Creatinine Creat Clearance w eGFR Random Glucose Calcium Magnesium Total Bilirubin AST ALT Alkaline Phosphatase Creatine Kinase Creatine Kinase Index Cancelled CK-MB (CK-2) Cancelled Troponin I B-Natriuretic Peptide Total Protein Albumin Lipase Urine Color Straw Urine Appearance Clear Urine pH 5.0 Ur Specific [place] 1.010 Urine Protein 2+ H Urine Glucose (UA) 1+ H Urine Ketones Negative Urine Blood Negative Urine Nitrite Negative Urine Bilirubin Negative Urine Urobilinogen Negative Ur Leukocyte Esterase Negative Urine WBC (Auto) 1 Urine RBC (Auto) <1 Ur Epithelial Cells Rare Hyaline Casts 3 Urine Mucus Rare Blood Type A POSITIVE Antibody Screen Negative 08/19/18 08/19/18 09:45 09:45 PT with INR 11.30 INR 0.96 PTT (Actin FS) 24.6 L Sodium 140 Potassium 5.4 H Chloride 110 H Carbon Dioxide 22 Anion Gap 8 BUN 68 H Creatinine 2.7 H Creat Clearance w eGFR 23.76 Random Glucose 222 H Calcium 8.7 Magnesium 2.3 Total Bilirubin 0.5 AST 9 L ALT 19 Alkaline Phosphatase 94 Creatine Kinase 229 Creatine Kinase Index 1.1 CK-MB (CK-2) 2.7 Troponin I < 0.02 B-Natriuretic Peptide 711.7 H Total Protein 7.1 Albumin 3.6 Lipase 162 Urine Color Urine Appearance Urine pH Ur Specific [place] Urine Protein Urine Glucose (UA) Urine Ketones Urine Blood Urine Nitrite Urine Bilirubin Urine Urobilinogen Ur Leukocyte Esterase Urine WBC (Auto) Urine RBC (Auto) Ur Epithelial Cells Hyaline Casts Urine Mucus Blood Type Antibody Screen 08/19/18 08/19/18 10:22 09:45 RBC 2.92 L Cancelled MCV 86.7 Cancelled MCHC 35.6 Cancelled RDW 15.2 Cancelled MPV 7.8 Cancelled Neutrophils % 67.1 Cancelled Lymphocytes % 17.9 Cancelled Monocytes % 10.3 H Cancelled Eosinophils % 4.0 Cancelled Basophils % 0.7 Cancelled - RADIOLOGY Radiology Studies Ordered: Category Date Time Status ABDOMEN & PELVIS CT W/O CONTR [CT] Stat CT Scan 08/19/18 09:35 Completed CHEST PA & LAT [RAD] Stat Radiology 08/19/18 09:13 Completed - Medications Given in the ED: ED Medications Discontinued Medications Generic Name Dose Route Start Last Admin Trade Name Freq PRN Reason Stop Dose Admin Aspirin 162 mg 08/19/18 09:12 08/19/18 10:01 Asa - PO 08/19/18 09:13 162 mg ONCE ONE Administration Medical Decision Making - Medical Decision Making 67 yo M w a sig pmh of quadruple bypass, CO, CAD, TIA (2010), CABG (2015), IDDM , A-Fib, restless leg syndrome, GERD, HTN, HLD, Renal Colic, Testicular cancer presents to ED stating that he woke up last night at 3 am with crushing left sided chest pain which felt like a sledge hammer on his chest. DDx IBNLT: ACS, Dissection, PE, tamponade, esophagitis. Plan: ACS workup - EKG, labs, urine, aspirin, cxr, Admit after ER workup. - Abdomen is distended so will obtain a non-con CTAP HEART score is 7 - first trop negative. - Will admit patient to Telemetry once CT result is back. I spoke with Dr. Good who is covering for Dr. Olivas today. He ppreciated the consult and said he will come check out the patient today. Consult placed to Dr. Olivas. Patient admitted to Tele *DC/Admit/Observation/Transfer Diagnosis at time of Disposition: Chest pain - Discharge Dispostion Decision to Admit order: Yes - Referrals - Patient Instructions - Post Discharge Activity
--- NOTE | 2018-08-19 09:49 | PDOC ---
Attending Attestation - Resident Resident Name: Paul Yan - ED Attending Attestation I have performed the following: I have examined & evaluated the patient, The case was reviewed & discussed with the resident, I agree w/resident's findings & plan, Exceptions are as noted - HPI HPI: 08/19/18 09:40 67 year old male history of coronary disease, quadruple bypass, testicular cancer in remission, chronic kidney disease, TIA, now cardial infarction, atrial fibrillation, diabetes, restless leg syndrome, GERD, hypertension, hyperlipidemia, diabetes presents with left-sided chest pressure since 3:00 this morning. Patient reports developing this pressure-like sensation radiating to left arm. Reports some mild reproducible left arm pain. Initially he took 2 nitroglycerin and put a patch on which had significant improvement in pain. Denies recent illnesses, fevers, chills, cough, vomiting. Incidentally, patient also reports having right mid abdominal pain. Patient reports chronic intermittent abdominal pain secondary to his irritable bowel syndrome. However, the patient reports differing characteristic of the pain but reports as moderate to mild. No nausea, vomiting, diarrhea. No fevers. Patient has history of status post cholecystectomy. He also had extensive surgery for his testicular cancer when metastasized to his abdomen. - Physicial Exam PE: 08/19/18 09:41 GENERAL: Awake, alert, and fully oriented, in no acute distress HEAD: No signs of trauma EYES: EOMI, sclera anicteric, conjunctiva clear ENT: Auricles normal inspection, hearing grossly normal, nares patent, Moist mucosa NECK: Normal ROM, supple, LUNGS: Breath sounds equal, clear to auscultation bilaterally. No wheezes, and no crackles HEART: Regular rate and rhythm, normal S1 and S2, no murmurs, rubs or gallops ABDOMEN: Soft, No guarding, no rebound. No masses. Mildly TTP LLQ, RLQ, R mid abd. EXTREMITIES: Normal range of motion, No clubbing or cyanosis. No cords, erythema , or tenderness. 2+ lower extremity edema bilaterallyl. NEUROLOGICAL: Cranial nerves II through XII grossly intact. Normal speech, SKIN: Warm, Dry, normal turgor, no rashes or lesions noted. - Medical Decision Making 08/19/18 09:40 Vital Signs Temp Pulse Resp BP Pulse Ox 98.1 F 76 20 163/56 L 99 08/19/18 08:40 08/19/18 08:40 08/19/18 08:40 08/19/18 08:40 08/19/18 08:40 We'll rule out myocardial infarction. Give aspirin. Chest x-ray, labs: Troponin. The abdomen pelvis, it may potentially be secondary to his irritable bowel syndrome but we'll obtain CT abdomen pelvis to rule out bowel obstruction. 08/19/18 10:56 CBC, BMP 08/19/18 10:22 08/19/18 09:45 CMP Sodium 140 mmol/L (136-145) 08/19/18 09:45 Potassium 5.4 mmol/L (3.5-5.1) H 08/19/18 09:45 Chloride 110 mmol/L (98-107) H 08/19/18 09:45 Carbon Dioxide 22 mmol/L (21-32) 08/19/18 09:45 Anion Gap 8 MMOL/L (8-16) 08/19/18 09:45 BUN 68 mg/dL (7-18) H 08/19/18 09:45 Creatinine 2.7 mg/dL (0.55-1.3) H 08/19/18 09:45 Creat Clearance w eGFR 23.76 (>60) 08/19/18 09:45 Random Glucose 222 mg/dL (74-106) H 08/19/18 09:45 Calcium 8.7 mg/dL (8.5-10.1) 08/19/18 09:45 Magnesium 2.3 mg/dL (1.8-2.4) 08/19/18 09:45 Total Bilirubin 0.5 mg/dL (0.2-1) 08/19/18 09:45 AST 9 U/L (15-37) L 08/19/18 09:45 ALT 19 U/L (13-61) 08/19/18 09:45 Alkaline Phosphatase 94 U/L (45-117) 08/19/18 09:45 Creatine Kinase 229 IU/L (26-308) 08/19/18 09:45 Creatine Kinase Index 1.1 % (0.0-5.0) 08/19/18 09:45 CK-MB (CK-2) 2.7 ng/mL (0.5-3.6) 12/30/18 09:45 Troponin I < 0.02 ng/ml (0.00-0.05) 08/19/18 09:45 B-Natriuretic Peptide 711.7 pg/ml (5-125) H 08/19/18 09:45 Total Protein 7.1 g/dl (6.4-8.2) 08/19/18 09:45 Albumin 3.6 g/dl (3.4-5.0) 08/19/18 09:45 Lipase 162 U/L (73-393) 08/19/18 09:45 08/19/18 12:24 CT abdomen and pelvis: mild hepatosplenomegaly but no changes. Chest xray reviewed: Cardiomegaly Will admit patient. 08/19/18 12:25 Heart Score/ECG Review - History History: Highly suspicious - Electrocardiogram EKG: Non specific repolarization disturbance - Age Age: >/= 65 - Risk Factors Based on the list above the patient has:: >/=3 risk factors or Hx atherosclerotic disease #1 ECG reviewed & interpreted by me at: 08:45 08/19/18 09:44 NSR 78 with 1st degree AV block, ?pointy T wave V2-V5, no std/janeen, normal axis, normal intervals, QTC 442 msec
[2018-08-19 10:09] LABS: INR 0.96 (0.83-1.09); PROTHROMBIN TIME (PATIENT) 11.3 SEC (9.7-13.0)
[2018-08-19 10:11] LABS: URINE APPEARANCE CLEAR; URINE BILIRUBIN NEGATIVE (<2.0 mg/dL); URINE COLOR STRAW; URINE GLUCOSE (UA) 1+ (NEGATIVE); URINE KETONE NEGATIVE (NEGATIVE); URINE LEUK ESTERASE NEGATIVE (NEGATIVE); URINE NITRITE NEGATIVE (NEGATIVE); URINE PROTEIN 2+ (NEGATIVE); URINE UROBILINOGEN NEGATIVE mg/dL (0.2-1.0)
[2018-08-19 10:12] LABS: ACTIVATED PTT 24.6 SECONDS (25.2-36.5)
[2018-08-19 10:24] LABS: ALBUMIN 3.6 g/dl (3.4-5.0); ALK PHOS 94 U/L (45-117); ANION GAP 8 MMOL/L (8-16); BILIRUBIN,TOTAL 0.5 mg/dL (0.2-1); BLOOD UREA NITROGEN 68 mg/dL (7-18); CALCIUM 8.7 mg/dL (8.5-10.1); CHLORIDE 110 mmol/L (98-107); CO2 22 mmol/L (21-32); CREATININE 2.7 mg/dL (0.55-1.3); GLUCOSE,RANDOM 222 mg/dL (74-106); N-TERMINAL BNP 711.7 pg/ml (5-125); POTASSIUM 5.4 mmol/L (3.5-5.1); SGOT/AST 9 U/L (15-37); SGPT/ALT 19 U/L (13-61); SODIUM 140 mmol/L (136-145); TOT PROT 7.1 g/dl (6.4-8.2)
[2018-08-19 10:28] LABS: BASO % 0.7 % (0-2.0); HEMATOCRIT 25.4 % (35.4-49); LYMPH % 17.9 % (8-40); MCH 30.9 pg (25.7-33.7); MCHC 35.6 g/dl (32.0-35.9); MEAN CELL VOLUME 86.7 fl (80-96); MEAN PLT VOLUME 7.8 fl (7.5-11.1); MONO % 10.3 % (3.8-10.2); NEUT % 67.1 % (42.8-82.8); PLATELET COUNT 193 K/MM3 (134-434); RBC 2.92 M/mm3 (4.00-5.60); RDW 15.2 % (11.9-15.9); WHITE BLOOD COUNT 10.6 K/mm3 (4.0-10.0)
[2018-08-19 10:38] LABS: EPI CELLS RARE /HPF (FEW); URINE HYALINE CAST 3 /lpf; URINE MUCUS RARE
[2018-08-19 10:48] LABS: LIPASE 162 U/L (73-393); MAGNESIUM 2.3 mg/dL (1.8-2.4)
--- NOTE | 2018-08-19 11:25 | EKG ---
Test Reason : Blood Pressure : / mmHG Vent. Rate : 078 BPM Atrial Rate : 078 BPM P-R Int : 210 ms QRS Dur : 118 ms QT Int : 388 ms P-R-T Axes : 046 059 066 degrees QTc Int : 442 ms SINUS RHYTHM WITH 1ST DEGREE A-V BLOCK INCOMPLETE RIGHT BUNDLE BRANCH BLOCK CANNOT RULE OUT ANTERIOR INFARCT (CITED ON OR BEFORE 06-OCT-2016) ABNORMAL ECG WHEN COMPARED WITH ECG OF 23-JAN-2018 21:43, NO SIGNIFICANT CHANGE WAS FOUND Confirmed by CRISTHIAN HAYWOOD MD ([id number]) on 08/19/2018 11:24:52 AM Referred By: Confirmed By:CRISTHIAN HAYWOOD MD
[2018-08-19] MEDS ORDERED: oxyCODONE HCL 5 MG TABLET PO PRN (15:25)
[2018-08-19] MEDS ORDERED: NITROGLYCERIN SUBLINGUAL 1/150 0.4 MG TAB SL PRN (15:25)
[2018-08-19] MEDS ORDERED: SODIUM CHLORIDE 0.45% 1,000 ML IV SCH (15:30)
--- NOTE | 2018-08-19 15:34 | HP ---
Admitting History and Physical - Primary Care Physician PCP: German Kurtz - Admission Chief Complaint: chest pain History of Present Illness: Mr Carolina is a 67 year old male who comes in with chest pain. He says he has been experiencing chest pain over the past month at night. He takes a SL nitro and it resolves. He says last night he began to develop the pain again. At first it was not chest pain but neck pain that was radiating to his L arm. He says he took his nitro and went to bed. However he woke up with severe left sided chest pain. He says it felt like a sledgehammer hitting him in the L side of his chest and it radiated to the back and down his L arm. He says at its worst it was a 10/10. He took 2 more nitro, his nitro patch, and all his medications but it did not improve. Because of this he comes in. He also complains of a lot of chronic problems including shortness of breath, bilateral leg swelling, and pain in both legs. He denies fevers, chills, lightheadedness, dizziness, passing out, nausea, vomiting, diarrhea, constipation, or difficulty urinating. Currently the chest pain is resolved but he is still with some pain in his arm. 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 Cardiovascular: Yes: CAD, CHF, HTN, Hyperlipdemia, [place], Other (TALAT) Gastrointestinal: Yes: Irritable Bowel Disease Renal/: Yes: Renal Inusuff Heme/Onc: Yes: Other (lymphoma, testicular cancer) Endocrine: Yes: Diabetes Mellitus - Past Surgical History Past Surgical History: Yes: CABG, Cholecystectomy Additional Past Surgical History: removal of testicle for testicular cancer - Smoking History Smoking history: Never smoked Have you smoked in the past 12 months: No Aproximately how many cigarettes per day: 0 If you are a former smoker, when did you quit?: 40 years aqo - Alcohol/Substance Use Hx Alcohol Use: No History of Substance Use: reports: None - Social History Usual Living Arrangement: Yes: With Spouse ADL: Independent History of Recent Travel: No Home Medications - Allergies Allergies/Adverse Reactions: Allergies Allergy/AdvReac Type Severity Reaction Status Date / Time Penicillins Allergy Rash Verified 08/19/18 08:45 sumatriptan [From Imitrex] Allergy Verified 08/19/18 08:45 sumatriptan succinate Allergy Verified 08/19/18 08:45 [From Imitrex] ASPARTANE Allergy Severe HEADACHE Uncoded 08/19/18 08:45 TRYPTOPHAN Allergy Intermediate DIARRHEA/VO Uncoded 08/19/18 08:45 MITING - Home Medications Home Medications: Ambulatory Orders Aspirin [ASA -] 81 mg PO DAILY 09/20/15 Atorvastatin Ca [Lipitor] 80 mg PO HS 09/20/15 Carvedilol 25 mg PO BID 09/20/15 Cholecalciferol (Vitamin D3) [D3-2000] 2,000 unit PO DAILY 09/20/15 Insulin (Levemir) [Levemir Vial] 70 unit SQ BID 09/20/15 Nitroglycerin Sublingual [Nitrostat -] 0.4 mg SL [id number] PRN #30 tab 10/07/16 Exenatide [Byetta] 10 mcg SQ BID 02/14/17 Losartan Potassium [Cozaar -] 50 mg PO BID 02/14/17 oxyCODONE HCL [Roxicodone -] 10 mg PO Q4H PRN 02/14/17 Krill/Om-3/Dha/Epa/Phospho/Ast [Krill Oil 500 mg Softgel] 1 each PO BID Multivit-Min/FA/Lycopen/Lutein [Centrum Silver Men Tablet] 1 each PO DAILY 11/22 Nitroglycerin Patch [Nitro-Dur Patch -] 0.4 mg TD DAILY 11/22/17 Furosemide [Lasix -] 60 mg PO DAILY #60 tablet 01/26/18 Amlodipine Besylate 5 mg PO DAILY 07/27/18 Ferrous Sulfate [Iron] 325 mg PO DAILY 07/27/18 Hydroxyzine HCl 25 mg PO BID 07/27/18 [place]-3 Acid Ethyl Esters [Lovaza -] 1,000 mg PO HS 07/27/18 Family Disease History - Family Disease History Family Disease History: Diabetes: Mother, Heart Disease: Father, Other: Sister ( thyroid) Review of Systems Findings/Remarks: Full review of systems obtained, as per HPI and otherwise negative Physical Examination Vital Signs: Vital Signs Temperature 36.7 C 08/19/18 08:40 Pulse Rate 76 08/19/18 08:40 Respiratory Rate 20 08/19/18 08:40 Blood Pressure 163/56 L 08/19/18 08:40 O2 Sat by Pulse Oximetry (%) 99 08/19/18 08:40 Constitutional: Yes: No Distress, Calm, Obese Eyes: Yes: Conjunctiva Clear, EOM Intact, PERRL HENT: Yes: Atraumatic, Normocephalic Cardiovascular: Yes: Regular Rate and Rhythm, Other (distant). No: Gallop, Murmur, Rub Respiratory: Yes: Regular, CTA Bilaterally. No: Rales, Rhonchi, Wheezes Gastrointestinal: Yes: Normal Bowel Sounds, Soft. No: Distention, Tenderness Extremities: Yes: WNL Edema: Yes Edema: LLE: 1+, RLE: 1+ Labs: CBC, BMP 08/19/18 10:22 08/19/18 09:45 Imaging - Results Chest X-ray: Report Reviewed, Image Reviewed Cat Scan: Report Reviewed Problem List - Problems (1) Chest pain Assessment/Plan: -patient with significant cardiac history and concerning presentation -currently chest pain free, but with L arm pain -will admit to telemetry -cardiac enzymes x3 -cardiology consult -ECHO -continue home regimen Code(s): R07.9 - CHEST PAIN, UNSPECIFIED (2) Hyperkalemia Assessment/Plan: -kayexalate is currently not available -will hydrate with 1/2 NS -recheck in am -will continue oral lasix to prevent fluid overload and help excrete potassium Code(s): E87.5 - HYPERKALEMIA (3) CKD (chronic kidney disease) Assessment/Plan: -patient says Creatinine of 2.7 is at baseline or lower -however highest recorded here in the system -patient of Dr Severino -also states recently underwent renal biopsy -will d/w Dr Severino about biopsy results and baseline renal function Code(s): N18.9 - CHRONIC KIDNEY DISEASE, UNSPECIFIED (4) Anemia Assessment/Plan: -Hgb 9 -suspect AOCD from CKD -reviewed cardiology note, recommended transfusion -will lower K and d/w renal about transfusion Code(s): D64.9 - ANEMIA, UNSPECIFIED Qualifiers: Anemia type: other cause Other causes of anemia: acute posthemorrhagic Qualified Code(s): D62 - Acute posthemorrhagic anemia (5) CAD (coronary artery disease) Assessment/Plan: -cardiology following -continue home regimen Code(s): I25.10 - ATHSCL HEART DISEASE OF [place] CORONARY ARTERY W/O ANG PCTRS (6) Diabetes Assessment/Plan: -diabetic diet -continue home levemir dose -FSBS Code(s): E11.9 - TYPE 2 DIABETES MELLITUS WITHOUT COMPLICATIONS Qualifiers: 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 type: type 2 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 [facility] insulin use: with [facility] use (7) HTN (hypertension) Assessment/Plan: -continue coreg, cozaar, norvasc, and lasix Code(s): I10 - ESSENTIAL (PRIMARY) HYPERTENSION (8) Hyperlipidemia Assessment/Plan: -continue lipitor and lovaza Code(s): E78.5 - HYPERLIPIDEMIA, UNSPECIFIED (9) Obesity Code(s): E66.9 - OBESITY, UNSPECIFIED Qualifiers: Obesity type: due to excess calories
--- NOTE | 2018-08-19 17:22 | CON.CARD ---
Consult Consult Specialty:: Cardiology Reason for Consultation:: Chest pain - History of Present Illness Chief Complaint: Chest pain History of Present Illness: This is a 67 year old male, patient of Dr. Olivas, [facility] of HTN, DM, CKD, testicular CA, H/O GIB, and known CAD. He is S/P CABG 01/24/18, lymphedema of the lower extremities. He presents now to the ER with chest pain. The CP was left sided "crushing," radiating to the left arm and jaw, and associated with nausea. He took SLNTG x2 and placed a nitro patch. Now CP free. Anemic HCT 25% Troponin negative x1 Last stress test 10/07 showed inferior/inferioapical ischemia, EF 77%, managed medically secondary to past rectal bleeding and CKD Echocardiogram 01/24/18 Normal LV systolic funciton, moderate LVH, mild AR, and mild TR. 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 Cardio/Vascular: Yes: CAD, CHF, HTN, Hyperlipdemia, IL, Other (TALAT) Gastrointestinal: Yes: Irritable Bowel Disease Renal/: Yes: Renal Inusuff Endocrine: Yes: Diabetes Mellitus - Past Surgical History Past Surgical History: Yes: Cholecystectomy - Alcohol/Substance Use Hx Alcohol Use: No History of Substance Use: reports: None - Smoking History Smoking history: Never smoked Have you smoked in the past 12 months: No Aproximately how many cigarettes per day: 0 If you are a former smoker, when did you quit?: 40 years aqo - Social History ADL: Independent History of Recent Travel: No Home Medications - Allergies Allergies/Adverse Reactions: Allergies Allergy/AdvReac Type Severity Reaction Status Date / Time Penicillins Allergy Rash Verified 08/19/18 08:45 sumatriptan [From Imitrex] Allergy Verified 08/19/18 08:45 sumatriptan succinate Allergy Verified 08/19/18 08:45 [From Imitrex] ASPARTANE Allergy Severe HEADACHE Uncoded 08/19/18 08:45 TRYPTOPHAN Allergy Intermediate DIARRHEA/VO Uncoded 08/19/18 08:45 MITING - Home Medications Home Medications: Ambulatory Orders Aspirin [ASA -] 81 mg PO DAILY 09/20/15 Atorvastatin Ca [Lipitor] 80 mg PO HS 09/20/15 Carvedilol 25 mg PO BID 09/20/15 Cholecalciferol (Vitamin D3) [D3-2000] 2,000 unit PO DAILY 09/20/15 Insulin (Levemir) [Levemir Vial] 70 unit SQ BID 09/20/15 Nitroglycerin Sublingual [Nitrostat -] 0.4 mg SL [id number] PRN #30 tab 10/07/16 Exenatide [Byetta] 10 mcg SQ BID 02/14/17 Losartan Potassium [Cozaar -] 50 mg PO BID 02/14/17 oxyCODONE HCL [Roxicodone -] 10 mg PO Q4H PRN 02/14/17 Krill/Om-3/Dha/Epa/Phospho/Ast [Krill Oil 500 mg Softgel] 1 each PO BID Multivit-Min/FA/Lycopen/Lutein [Centrum Silver Men Tablet] 1 each PO DAILY 11/22 Nitroglycerin Patch [Nitro-Dur Patch -] 0.4 mg TD DAILY 11/22/17 Furosemide [Lasix -] 60 mg PO DAILY #60 tablet 01/26/18 Amlodipine Besylate 5 mg PO DAILY 07/27/18 Ferrous Sulfate [Iron] 325 mg PO DAILY 07/27/18 Hydroxyzine HCl 25 mg PO BID 07/27/18 [place]-3 Acid Ethyl Esters [Lovaza -] 1,000 mg PO HS 07/27/18 Family Disease History - Family Disease History Family Disease History: Diabetes: Mother, Heart Disease: Father Vital Signs: Vital Signs Temperature 98.1 F 08/19/18 08:40 Pulse Rate 72 08/19/18 16:20 Respiratory Rate 18 08/19/18 16:20 Blood Pressure 142/80 08/19/18 16:20 O2 Sat by Pulse Oximetry (%) 99 08/19/18 08:40 Constitutional: Yes: Well Nourished Eyes: Yes: WNL HENT: Yes: WNL Neck: Yes: WNL Respiratory: Yes: Dullness (Bibasilar) Gastrointestinal: Yes: Normal Bowel Sounds Cardiovascular: Yes: Regular Rate and Rhythm Heart Sounds: Yes: S1, S2 Edema: Yes Edema: LLE: 2+, RLE: 2+ Neurological: Yes: Alert, Oriented - Other Data Labs, Other Data: CBC, BMP 08/19/18 10:22 08/19/18 09:45 INR, PTT INR 0.96 (0.83-1.09) 08/19/18 09:45 Troponin, BNP 08/19/18 09:45 Troponin I < 0.02 B-Natriuretic Peptide 711.7 H Troponin, BNP 08/19/18 09:45 Troponin I < 0.02 B-Natriuretic Peptide 711.7 H Assessment/Plan 67 year old male, patient of Dr. Olivas, [facility] of HTN, DM, CKD, testicular CA, H/ O GIB, and known CAD. He is S/P CABG 01/24/18, lymphedema of the lower extremities. He presents now to the ER with chest pain. The CP was left sided "crushing," radiating to the left arm and jaw, and associated with nausea. He took SLNTG x2 and placed a nitro patch. Now CP free. Anemic HCT 25% Troponin negative x1 Last stress test 10/07 showed inferior/inferioapical ischemia, EF 77%, managed medically secondary to past rectal bleeding and CKD Echocardiogram 01/24/18 Normal LV systolic function, moderate LVH, mild AR, and mild TR. Chest pain The anemia is a factor, would consider PRBC tx Follow troponin trends Continue Coreg 25 mg PO BID adn nitro patch Continue Statin/ASA Would obtain a repeat echocardiogarm When anemia is resolved, would consider repeating the nuclear stress test Reluctant to Cath given renal dysfunction and anemia Will follow with you
[2018-08-19] MEDS ORDERED: oxyCODONE HCL 5 MG TABLET ONE (17:47)
[2018-08-19 19:05] VITALS: BMI 39.9
[2018-08-19] MEDS: CARVEDILOL 25 MG TABLET (FP) PO SCH (21:21)
[2018-08-19] MEDS: hydrOXYzine HCL 25 MG TABLET (FP) PO SCH (21:21)
[2018-08-19] MEDS: LOSARTAN POTASSIUM 50 MG TABLET (FP) PO SCH (21:22)
[2018-08-19] MEDS ORDERED: HEPARIN NA (PORCINE) 5,000 UNITS/ML 1ML VIAL ONE (21:43)
[2018-08-19] MEDS ORDERED: INSULIN (LEVEMIR) 100 UNITS/ML UNITS SQ ONE (21:46)
[2018-08-19] MEDS ORDERED: INSULIN (NOVOLOG) ASPART 100 UNITS/ML 10ML VIAL ONE (21:47)
[2018-08-19] MEDS: INSULIN (LEVEMIR) 100 UNITS/ML UNITS SQ SCH (21:55)
[2018-08-19] MEDS: HEPARIN NA (PORCINE) 5,000 UNITS/ML 1ML VIAL SQ SCH (21:55)
[2018-08-19] MEDS: INSULIN SLIDING SCALE (NOVOLOG) 1 VIAL SQ SCH (21:56)
[2018-08-19] MEDS ORDERED: PHOSPHO PO SCH (22:00)
[2018-08-19] MEDS ORDERED: KRILL PO SCH (22:00)
[2018-08-19] MEDS ORDERED: OMEGA-3 ACID ETHYL ESTERS (FATTY-ACIDS) 1 GM CAPSULE (FP) PO SCH (22:00)
[2018-08-19] MEDS ORDERED: EPA PO SCH (22:00)
[2018-08-19] MEDS ORDERED: [UNRECOGNIZED DRUG - OTHER] PO SCH (22:00)
[2018-08-19] MEDS ORDERED: ATORVASTATIN CA 80 MG TABLET (FP) PO SCH (22:00)
[2018-08-19] MEDS ORDERED: AST PO SCH (22:00)
[2018-08-19] MEDS ORDERED: DHA PO SCH (22:00)
[2018-08-20] MEDS: INSULIN SLIDING SCALE (NOVOLOG) 1 VIAL SQ SCH (06:24)
[2018-08-20 06:54] LABS: HEMATOCRIT 28.4 % (35.4-49); HEMOGLOBIN 9.5 GM/dL (11.7-16.9); MCH 29.5 pg (25.7-33.7); MCHC 33.3 g/dl (32.0-35.9); MEAN CELL VOLUME 88.5 fl (80-96); MEAN PLT VOLUME 7.8 fl (7.5-11.1); PLATELET COUNT 202 K/MM3 (134-434); RBC 3.21 M/mm3 (4.00-5.60); RDW 15.4 % (11.9-15.9); WHITE BLOOD COUNT 9.1 K/mm3 (4.0-10.0)
[2018-08-20 07:13] LABS: ANION GAP 7 MMOL/L (8-16); BLOOD UREA NITROGEN 71 mg/dL (7-18); CHLORIDE 111 mmol/L (98-107); CO2 24 mmol/L (21-32); CREATININE 2.7 mg/dL (0.55-1.3); GLUCOSE,RANDOM 100 mg/dL (74-106); MAGNESIUM 2.5 mg/dL (1.8-2.4); PHOSPHOROUS 5.3 mg/dL (2.5-4.9); POTASSIUM 5.1 mmol/L (3.5-5.1); SODIUM 143 mmol/L (136-145)
--- NOTE | 2018-08-20 09:33 | PN ---
Progress Note, Physician Chief Complaint: Pt sitting in stretcher in no acute distress. reports chest pain resolved, still has left arm pain which significantly improved - Current Medication List Current Medications: Active Medications Amlodipine Besylate (Norvasc -) 5 mg PO DAILY [facility] Aspirin (Asa -) 81 mg PO DAILY [facility] Atorvastatin Calcium (Lipitor -) 80 mg PO HS [facility] Last Admin: 08/19/18 21:23 Dose: 80 mg Carvedilol (Coreg -) 25 mg PO BID [facility] Last Admin: 08/19/18 21:21 Dose: 25 mg Cholecalciferol (Vitamin D3 -) 2,000 unit PO DAILY [facility] Ferrous Sulfate (Feosol -) 325 mg PO DAILY [facility] Furosemide (Lasix -) 60 mg PO DAILY [facility] Heparin Sodium (Porcine) (Heparin -) 5,000 unit SQ BID [facility] Last Admin: 08/19/18 21:55 Dose: Not Given Hydroxyzine HCl (Atarax -) 25 mg PO BID [facility] Last Admin: 08/19/18 21:21 Dose: 25 mg Insulin Aspart (Novolog Vial Sliding Scale -) 1 vial SQ [facility]; Protocol Last Admin: 08/20/18 06:24 Dose: Not Given Insulin Detemir (Levemir Vial) 70 units SQ BID [facility] Last Admin: 08/19/18 21:55 Dose: 70 units Losartan Potassium (Cozaar -) 50 mg PO BID [facility] Last Admin: 08/19/18 21:22 Dose: 50 mg Multivitamins/Minerals (Theragran-M) 1 each PO DAILY [facility] Nitroglycerin (Nitro-Dur Patch -) 0.4 mg TD DAILY [facility] Nitroglycerin (Nitrostat -) 0.4 mg SL [id number] PRN PRN Reason: PAIN Krxhv-5-Lnap Ethyl Esters (Lovaza -) 1 gm PO HS [facility] Last Admin: 08/19/18 21:23 Dose: 1 gm Oxycodone HCl (Roxicodone -) 10 mg PO Q4H PRN PRN Reason: PAIN Last Admin: 08/19/18 17:46 Dose: 10 mg - Objective Vital Signs: Vital Signs Temperature 97.6 F 08/20/18 08:07 Pulse Rate 58 L 08/20/18 06:23 Respiratory Rate 18 08/20/18 06:23 Blood Pressure 140/64 08/20/18 06:23 O2 Sat by Pulse Oximetry (%) 96 12/31/18 06:23 Constitutional: Yes: Well Nourished, No Distress, Calm Cardiovascular: Yes: WNL, Regular Rate and Rhythm Respiratory: Yes: Regular, Diminished. No: Tachypnea, Wheezes Gastrointestinal: Yes: WNL, Normal Bowel Sounds, Soft, Abdomen, Obese Genitourinary: Yes: WNL Extremities: Yes: WNL Edema: Yes Edema: LLE: 2+, RLE: 2+ Neurological: Yes: WNL, Alert, Oriented Psychiatric: Yes: WNL, Alert, Oriented Labs: CBC, BMP 08/20/18 06:15 08/20/18 06:15 INR, PTT INR 0.96 (0.83-1.09) 08/19/18 09:45 Assessment/Plan (1) Chest pain Assessment/Plan: improved trop x3 neg echo pending nuclear stress per cardio Code(s): R07.9 - CHEST PAIN, UNSPECIFIED (2) Hyperkalemia Assessment/Plan: improved Code(s): E87.5 - HYPERKALEMIA (3) CKD (chronic kidney disease) Assessment/Plan: at baseline Code(s): N18.9 - CHRONIC KIDNEY DISEASE, UNSPECIFIED (4) Anemia Assessment/Plan: multifactorial, stable Hgb 9.5 defer prbcs transfusion to cardiology Code(s): D64.9 - ANEMIA, UNSPECIFIED Qualifiers: Anemia type: other cause Other causes of anemia: acute posthemorrhagic Qualified Code(s): D62 - Acute posthemorrhagic anemia (5) CAD (coronary artery disease) Assessment/Plan: cardiology following continue home regimen Code(s): I25.10 - ATHSCL HEART DISEASE OF [place] CORONARY ARTERY W/O ANG PCTRS (6) Diabetes Assessment/Plan: diabetic diet continue home regimen Code(s): E11.9 - TYPE 2 DIABETES MELLITUS WITHOUT COMPLICATIONS Qualifiers: 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 type: type 2 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 manager long term care insulin use: with retirement use (7) HTN (hypertension) Assessment/Plan: continue coreg, cozaar, norvasc, and lasix Code(s): I10 - ESSENTIAL (PRIMARY) HYPERTENSION (8) Hyperlipidemia Assessment/Plan: continue lipitor and lovaza Code(s): E78.5 - HYPERLIPIDEMIA, UNSPECIFIED (9) Obesity Code(s): E66.9 - OBESITY, UNSPECIFIED Qualifiers: Obesity type: due to excess calories Dispo: pending cardiology clearance
[2018-08-20] MEDS ORDERED: CHOLECALCIFEROL (VITAMIN D3) 1,000 UNIT TABLET (FP) PO SCH (10:00)
[2018-08-20] MEDS ORDERED: NITROGLYCERIN 0.4 MG/HOUR TD PATCH TD SCH (10:00)
[2018-08-20] MEDS ORDERED: amLODIPine BESYLATE 5 MG TABLET (FP) PO SCH (10:00)
[2018-08-20] MEDS ORDERED: FUROSEMIDE 40 MG TABLET (FP) PO SCH (10:00)
[2018-08-20] MEDS ORDERED: ASPIRIN 81 MG CHEWABLE TABLETS PO SCH (10:00)
[2018-08-20] MEDS ORDERED: FERROUS SO4 325 MG TABLET (FP) PO SCH (10:00)
[2018-08-20] MEDS ORDERED: MULTIVITAMINS THER W-MINERALS COMBO TABLET (FP) PO SCH (10:00)
[2018-08-20] MEDS: CARVEDILOL 25 MG TABLET (FP) PO SCH (10:35)
[2018-08-20] MEDS: hydrOXYzine HCL 25 MG TABLET (FP) PO SCH (10:35)
[2018-08-20] MEDS: LOSARTAN POTASSIUM 50 MG TABLET (FP) PO SCH (10:35)
[2018-08-20] MEDS ORDERED: HEPARIN NA (PORCINE) 5,000 UNITS/ML 1ML VIAL ONE (10:37)
[2018-08-20] MEDS ORDERED: INSULIN (LEVEMIR) 100 UNITS/ML UNITS SQ ONE (10:38)
[2018-08-20] MEDS: HEPARIN NA (PORCINE) 5,000 UNITS/ML 1ML VIAL SQ SCH (10:43)
[2018-08-20] MEDS: INSULIN (LEVEMIR) 100 UNITS/ML UNITS SQ SCH (10:43)
--- NOTE | 2018-08-20 14:30 | ECHO ---
Name: RIDGE AVILA Exam:Adult Echocardiogram Study Date: 08/20/2018 09:07 AM Age: 67 yrs Reason For Study: Chest pain Height: 67 in Weight: 250 lb BSA: 2.2 m2 MMode/2D Measurements & Calculations IVSd: 0.96 cm Ao root diam: 3.9 cm LVIDd: 4.8 cm LA dimension: 4.1 cm LVIDs: 3.1 cm LVPWd: 0.96 cm EDV(Teich): 106.6 ml TAPSE: 2.2 cm ESV(Teich): 37.8 ml Doppler Measurements & Calculations MV E max benjy: 95.3 cm/sec MR max benjy: 260.6 cm/sec MV A max benjy: 83.4 cm/sec MR max P.2 mmHg MV E/A: 1.1 MV dec time: 0.19 sec TR max benjy: 232.1 cm/sec PI end-d benjy: 63.8 cm/sec TR max P.6 mmHg Med Peak E' Benjy: 3.7 cm/sec Med E/e': 25.6 Lat Peak E' Benjy: 5.5 cm/sec Lat E/e': 17.4 Procedure A complete two-dimensional transthoracic echocardiogram was performed (2D, M-mode, Doppler and color flow Doppler). Technically limited study. Left Ventricle The left ventricle is normal in size. Left ventricular systolic function is normal. Ejection Fraction = 60- 65%. Diastolic dysfunction, Grade II, consistent with elevated left atrial pressure. No regional wall motion abnormalities noted. Right Ventricle The right ventricle is not well visualized. Atria The left atrium is mildly dilated. Right atrial size is normal. Mitral Valve There is mild mitral annular calcification. There is mild mitral regurgitation. Tricuspid Valve The tricuspid valve is normal in structure and function. No tricuspid regurgitation. Aortic Valve There is mild aortic sclerosis.;. No aortic regurgitation is present. Pulmonic Valve The pulmonic valve is not well visualized. Mild pulmonic valvular regurgitation. Great Vessels Borderline aortic root dilatation. Pericardium/Pleura There is no pericardial effusion. Interpretation Summary Technically limited study The left ventricle is normal in size. Left ventricular systolic function is normal. No regional wall motion abnormalities noted. Ejection Fraction = 60-65%. Diastolic dysfunction, Grade II, consistent with elevated left atrial pressure. The right ventricle is not well visualized. The left atrium is mildly dilated. Right atrial size is normal. There is mild mitral annular calcification. There is mild mitral regurgitation. There is mild aortic sclerosis. Mild pulmonic valvular regurgitation. Borderline aortic root dilatation. There is no pericardial effusion. When compared to study dated 01/24/18, impaired relaxation with elevated filling pressure is seen Yoni Parsons MD 08/20/2018 02:30 PM
[2018-08-20 14:46] VITALS: BP 136/74; PULSE 70; TEMP 97.9
--- NOTE | 2018-08-20 15:17 | PN ---
Progress Note, Physician Chief Complaint: No recurrent chest pain in hospital History of Present Illness: 67 year old male, patient of Dr. Olivas, [facility] of HTN, DM, CKD, testicular CA, H/ O GIB, and known CAD. He is S/P CABG, lymphedema of the lower extremities. He presents now to the ER with chest pain. Now CP free. Anemic HCT 25% Troponin negative Last stress test 10/07 showed inferior/inferioapical ischemia, EF 77%, managed medically secondary to past rectal bleeding and CKD Echocardiogram 01/24/18 Normal LV systolic function, moderate LVH, mild AR, and mild TR. - Current Medication List Current Medications: Active Medications Amlodipine Besylate (Norvasc -) 5 mg PO DAILY ON [facility] Last Admin: 08/20/18 10:36 Dose: 5 mg Aspirin (Asa -) 81 mg PO DAILY ON [facility] Last Admin: 08/20/18 10:35 Dose: 81 mg Atorvastatin Calcium (Lipitor -) 80 mg PO HS [facility] Last Admin: 08/19/18 21:23 Dose: 80 mg Carvedilol (Coreg -) 25 mg PO BID [facility] Last Admin: 08/20/18 10:35 Dose: 25 mg Cholecalciferol (Vitamin D3 -) 2,000 unit PO DAILY [facility] Last Admin: 08/20/18 10:36 Dose: 2,000 unit Ferrous Sulfate (Feosol -) 325 mg PO DAILY [facility] Last Admin: 08/20/18 10:35 Dose: 325 mg Furosemide (Lasix -) 60 mg PO DAILY [facility] Last Admin: 08/20/18 10:36 Dose: 60 mg Heparin Sodium (Porcine) (Heparin -) 5,000 unit SQ BID [facility] Last Admin: 08/20/18 10:43 Dose: 5,000 unit Hydroxyzine HCl (Atarax -) 25 mg PO BID [facility] Last Admin: 08/20/18 10:35 Dose: 25 mg Insulin Aspart (Novolog Vial Sliding Scale -) 1 vial SQ [facility]; Protocol Last Admin: 08/20/18 06:24 Dose: Not Given Insulin Detemir (Levemir Vial) 70 units SQ BID [facility] Last Admin: 08/20/18 10:43 Dose: 70 units Losartan Potassium (Cozaar -) 50 mg PO BID [facility] Last Admin: 08/20/18 10:35 Dose: 50 mg Multivitamins/Minerals (Theragran-M) 1 each PO DAILY [facility] Last Admin: 08/20/18 10:36 Dose: 1 each Nitroglycerin (Nitro-Dur Patch -) 0.4 mg TD DAILY [facility] Last Admin: 08/20/18 10:36 Dose: 0.4 mg Nitroglycerin (Nitrostat -) 0.4 mg SL [id number] PRN PRN Reason: PAIN Pqigc-0-Tnch Ethyl Esters (Lovaza -) 1 gm PO HS ON [facility] Last Admin: 08/19/18 21:23 Dose: 1 gm Oxycodone HCl (Roxicodone -) 10 mg PO Q4H PRN PRN Reason: PAIN Last Admin: 08/19/18 17:46 Dose: 10 mg - Objective Vital Signs: Vital Signs Temperature 97.9 F 08/20/18 14:30 Pulse Rate 70 08/20/18 14:30 Respiratory Rate 20 08/20/18 14:30 Blood Pressure 136/74 08/20/18 14:30 O2 Sat by Pulse Oximetry (%) 97 08/20/18 14:30 Constitutional: Yes: No Distress Neck: Yes: Supple Cardiovascular: Yes: Regular Rate and Rhythm, S1, S2. No: JVD, Murmur Respiratory: Yes: CTA Bilaterally Gastrointestinal: Yes: Soft Edema: LLE: 1+, RLE: 1+ Labs: CBC, BMP 08/20/18 06:15 08/20/18 06:15 INR, PTT INR 0.96 (0.83-1.09) 08/19/18 09:45 Assessment/Plan 67 year old male, patient of Dr. Olivas, [facility] of HTN, DM, CKD, testicular CA, H/ O GIB, and known CAD. He is S/P CABG, lymphedema of the lower extremities. He presents now to the ER with chest pain. Now CP free. Anemic HCT 25% Troponin negative Last stress test 10/07 showed inferior/inferioapical ischemia, EF 77%, managed medically secondary to past rectal bleeding and CKD Echocardiogram 01/24/18 Normal LV systolic function, moderate LVH, mild AR, and mild TR. Chest pain The anemia is a factor but stable today Troponins negative Continue Coreg 25 mg PO BID and nitro patch Continue Statin/ASA Repeat echocardiogarm with normal LVEF and no significant valve disease Reluctant to Cath given renal dysfunction and anemia. No acute ekg changes, troponins negative, no LV wall motion abnormalities. NST 2017 with inferior ischemia. Would have patient work up regarding his anemia. F/u with Dr. Olivas as outpatient and will consider outpatient stress testing if needed. No further testing at this time.
--- NOTE | 2018-08-20 15:22 | DS ---
Physical Examination Vital Signs: Vital Signs Temperature 97.9 F 08/20/18 14:30 Pulse Rate 70 08/20/18 14:30 Respiratory Rate 20 08/20/18 14:30 Blood Pressure 136/74 08/20/18 14:30 O2 Sat by Pulse Oximetry (%) 97 08/20/18 14:30 Labs: CBC, BMP 08/20/18 06:15 08/20/18 06:15 Discharge Summary Reason For Visit: CHEST PAIN Current Active Problems CKD (chronic kidney disease) (Acute) Chest pain (Acute) Hyperkalemia (Acute) Hospital Course: 67 year old male pmh significant for CAD, MA admitted for evaluation of chest pain. all cardiac work up negative. recommend outpt cardiology f/u for further studies. recommend outpt anemia work up. pt is cleared by cardiology for discharge. Pt is medically stable for discharge home Condition: Good - Instructions Diet, Activity, Other Instructions: resume home meds follow up outpt w/ cardiology, pcp anemia work up outpt Referrals: Malcolm Paulino MD [Primary Care Provider] - Oliverio Olivas MD [Staff Physician] - 1 Week Disposition: HOME - Home Medications Comprehensive Discharge Medication List: Ambulatory Orders Aspirin [ASA -] 81 mg PO DAILY 09/20/15 Atorvastatin Ca [Lipitor] 80 mg PO HS 09/20/15 Carvedilol 25 mg PO BID 09/20/15 Cholecalciferol (Vitamin D3) [D3-2000] 2,000 unit PO DAILY 09/20/15 Insulin (Levemir) [Levemir Vial] 70 unit SQ BID 09/20/15 Nitroglycerin Sublingual [Nitrostat -] 0.4 mg SL [id number] PRN #30 tab 10/07/16 Exenatide [Byetta] 10 mcg SQ BID 02/14/17 Losartan Potassium [Cozaar -] 50 mg PO BID 02/14/17 oxyCODONE HCL [Roxicodone -] 10 mg PO Q4H PRN 02/14/17 Kr[place]/Om-3/Dha/Epa/Phospho/Ast [Krill Oil 500 mg Softgel] 1 each PO BID Multivit-Min/FA/Lycopen/Lutein [Centrum Silver Men Tablet] 1 each PO DAILY 11/22 Nitroglycerin Patch [Nitro-Dur Patch -] 0.4 mg TD DAILY 11/22/17 Furosemide [Lasix -] 60 mg PO DAILY #60 tablet 01/26/18 Amlodipine Besylate 5 mg PO DAILY 07/27/18 Ferrous Sulfate [Iron] 325 mg PO DAILY 07/27/18 Hydroxyzine HCl 25 mg PO BID 07/27/18 [place]-3 Acid Ethyl Esters [Lovaza -] 1,000 mg PO HS 07/27/18
== END 2018-08-20 15:56 | disposition home or self-care (01) | DRG 303 ==
LOC: JER 08:34 → JERBED 12:21 → J4W 08-20 14:15
PROVIDERS: ADMIT Internal Medicine; ATTEND Nurse Practitioner Family
DX: I25.10 Atherosclerotic heart disease of native coronary artery without angina pectoris (principal); Z95.1 Presence of aortocoronary bypass graft; I12.9 Hypertensive chronic kidney disease with stage 1 through stage 4 chronic kidney disease, or unspecified chronic kidney disease; E11.22 Type 2 diabetes mellitus with diabetic chronic kidney disease; N18.9 Chronic kidney disease, unspecified; R07.9 Chest pain, unspecified; E87.5 Hyperkalemia; D64.9 Anemia, unspecified; E78.5 Hyperlipidemia, unspecified; E66.9 Obesity, unspecified; Z68.39 Body mass index [BMI] 39.0-39.9, adult; K21.9 Gastro-esophageal reflux disease without esophagitis; Z79.4 Long term (current) use of insulin
CPT/HCPCS: 36415; 71046-TC-FY; 74176-TC; 80048; 80053; 81003; 81015; 82550; 82553; 82962; 83690; 83735; 83880; 84100; 84484; 85025; 85027; 85610; 85730; 86850; 86900; 86901; 93005; 93010; 93306-TC; 99283-25; J1644

== ENCOUNTER 2018-09-11 11:44 | Inpatient (IN) | payer BC, OTHER ==
--- NOTE | 2018-09-11 13:19 | PDOC ---
History of Present Illness - General Chief Complaint: Pain Stated Complaint: PAIN Time Seen by Provider: 09/11/18 12:25 - History of Present Illness Initial Comments: 09/11/18 13:16 67-year-old male with multiple comorbidities history of testicular cancer coronary artery disease, presents for evaluation of 3 days of shortness of breath with exertion and bilateral leg swelling. Past History - Past Medical History Allergies/Adverse Reactions: Allergies Allergy/AdvReac Type Severity Reaction Status Date / Time Penicillins Allergy Rash Verified 09/11/18 11:49 sumatriptan [From Imitrex] Allergy Verified 09/11/18 11:49 sumatriptan succinate Allergy Verified 09/11/18 11:49 [From Imitrex] ASPARTANE Allergy Severe HEADACHE Uncoded 09/11/18 11:49 TRYPTOPHAN Allergy Intermediate DIARRHEA/VO Uncoded 09/11/18 11:49 MITING Home Medications: Ambulatory Orders Aspirin [ASA -] 81 mg PO DAILY 09/20/15 Atorvastatin Ca [Lipitor] 80 mg PO HS 09/20/15 Carvedilol 25 mg PO BID 09/20/15 Cholecalciferol (Vitamin D3) [D3-2000] 2,000 unit PO DAILY 09/20/15 Insulin (Levemir) [Levemir Vial] 70 unit SQ BID 09/20/15 Nitroglycerin Sublingual [Nitrostat -] 0.4 mg SL [id number] PRN #30 tab 10/07/16 Exenatide [Byetta] 10 mcg SQ BID 02/14/17 Losartan Potassium [Cozaar -] 50 mg PO BID 02/14/17 oxyCODONE HCL [Roxicodone -] 10 mg PO Q4H PRN 02/14/17 [place]/Om-3/Dha/Epa/Phospho/Ast [Krill Oil 500 mg Softgel] 1 each PO BID Multivit-Min/FA/Lycopen/Lutein [Centrum Silver Men Tablet] 1 each PO DAILY 11/22 Nitroglycerin Patch [Nitro-Dur Patch -] 0.4 mg TD DAILY 11/22/17 Furosemide [Lasix -] 60 mg PO DAILY #60 tablet 01/26/18 Amlodipine Besylate 5 mg PO DAILY 07/27/18 Ferrous Sulfate [Iron] 325 mg PO DAILY 07/27/18 Hydroxyzine HCl 25 mg PO BID 07/27/18 [place]-3 Acid Ethyl Esters [Lovaza -] 1,000 mg PO HS 07/27/18 Anemia: No Asthma: No Cancer: Yes (TESTICULAR ca with lymph node dissection) Cardiac Disorders: Yes (NM 2014) CVA: Yes (TIA 05/2011) COPD: No CHF: No Dementia: No Diabetes: Yes GI Disorders: Yes (GASTRITIS, SPASTIC COLON, GERD; COLON POLYPS) Disorders: Yes (kidney failure) HTN: Yes Hypercholesterolemia: Yes Kidney Stones: Yes Liver Disease: No Seizures: No Thyroid Disease: No - Surgical History Appendectomy: No Cardiac Surgery: Yes (quad bypass 2014) Cholecystectomy: Yes Lung Surgery: No Neurologic Surgery: Yes (HERNIATED DISC; BRAIN SURGERY INFANT) Orthopedic Surgery: Yes (KNEE ARTHROSCOPY R/L) - Immunization History Immunization Up to Date: Yes - Suicide/Smoking/Psychosocial Hx Smoking Status: No Smoking History: Never smoked Have you smoked in the past 12 months: No Number of Cigarettes Smoked Daily: 0 If you are a former smoker, when did you quit?: 40 years aqo Cigars Per Day: 0 Information on smoking cessation initiated: No Hx Alcohol Use: No Drug/Substance Use Hx: No Substance Use Type: None Hx Substance Use Treatment: No Review of Systems - Review of Systems Constitutional: No: Fever Respiratory: Yes: Shortness of Breath *Physical Exam - Vital Signs Last Vital Signs Temp Pulse Resp BP Pulse Ox 97.5 F L 75 17 105/48 L 95 09/11/18 11:50 09/11/18 11:50 09/11/18 11:50 09/11/18 11:50 09/11/18 11:50 - Physical Exam Comments: 09/11/18 13:17 HEAD: NC/AT EYES: Conjuntiva clear Ears: Canals and TM's normal NOSE: No d/c THROAT: Moist mucous membrances, oral pharanx clear, uvula midline NECK: Supple without adenopathy CARDIAC: S1 S2 LUNGS: Decreased at the bases ABDOMEN: Soft NT ND MS: Full ROM in all joints with bilateral 3+ pretibial edema with calf and thigh tenderness NEUROLOGIC: No gross sensory or motor deficits, NVID SKIN: Normal color and temperature no lesions or rashes Moderate Sedation - Procedure Monitoring Vital Signs: Procedure Monitoring Vital Signs Temperature 97.5 F L 09/11/18 11:50 Pulse Rate 75 09/11/18 11:50 Respiratory Rate 17 09/11/18 11:50 Blood Pressure 105/48 L 09/11/18 11:50 O2 Sat by Pulse Oximetry (%) 95 09/11/18 11:50 ED Treatment Course - RADIOLOGY Radiology Studies Ordered: Category Date Time Status CHEST PA & LAT [RAD] Stat Radiology 09/11/18 12:51 Ordered DUPLEX VASCUL US-2LEGS [US] Stat Ultrasound 09/11/18 12:52 Ordered Medical Decision Making - Medical Decision Making 09/11/18 13:19 3 days of shortness of breath and bilateral leg pain and concern for congestive heart failure, DVT, PE, acute NM, kidney failure. I will transfer this person to the main emergency room for further workup. *DC/Admit/Observation/Transfer Diagnosis at time of Disposition: Edema extremities - Referrals Referrals: German Kurtz MD [Primary Care Provider] - - Patient Instructions - Post Discharge Activity
--- NOTE | 2018-09-11 13:36 | PDOC ---
*Physical Exam - Vital Signs Last Vital Signs Temp Pulse Resp BP Pulse Ox 97.5 F L 75 17 105/48 L 95 09/11/18 11:50 09/11/18 11:50 09/11/18 11:50 09/11/18 11:50 09/11/18 11:50 - Physical Exam General Appearance: Yes: Appropriately Dressed, Mild Distress HEENT: positive: Normal Voice Neck: positive: Supple Respiratory/Chest: positive: Lungs Clear, Normal Breath Sounds. negative: Respiratory Distress Cardiovascular: positive: Regular Rate, S1, S2 Musculoskeletal: positive: Vertebral Tenderness (to L lower back). negative: CVA Tenderness Extremity: positive: Other (tight edema to LLE diffusely w/ sig ttp, no obvious erythema or increased warmth, unable to palpate pedal pulses) Integumentary: positive: Dry, Warm Neurologic: positive: Fully Oriented, Alert, Normal Mood/Affect ED Treatment Course - LABORATORY CBC & Chemistry Diagram: 09/11/18 14:50 09/11/18 14:29 Medical Decision Making - Medical Decision Making 09/11/18 13:31 Pt seen in FT initially and transferred to main ED for higher level of care 67-year-old male, history of IDDM, CABG x 4, CKD (baseline ~ 1-2), chronic b/l LE edema, on lasix, multiple neck and back surgeries 2/2 herniated disc, s/p b/ l TKR, ambulates w/ cane, here with worsening edema and pain to entire LLE x 3 days. No f/c. Reports SOB but no CP or palpitations. No recent injury See exam R/o LLE DVT vs CHF flare vs infection -pain control -labs -doppler -dispo pending 09/11/18 15:59 Chem w/ creatinine of 3.9, (baseline Cr 1-2). K 6.2. Hyper K cocktail in progress. EKG and chest x-ray unremarkable. No DVT on ultrasound. Case discussed with Dr. Malcolm Cordon, pt's attendance clerk, who reports that patient had a renal biopsy recently that confirmed diabetic nephropathy. Patient also known to have chronic proteinuria. Worsening edema most likely represents nephrotic syndrome. Recommends that I consult Dr. Hernandez of renal to see patient in-house. Will arrange admission with hospitalist once all labs are back 09/11/18 16:22 Case d/w Dr Olivas, patient's flap presser who rec holding off on lasix at this time as patient is third spacing from his low albumin and diuresis can worsen renal disease. Hospitalist made aware of patient and recommends admitting to ICU at this time pending rpt chemistry 09/11/18 16:35 *DC/Admit/Observation/Transfer Diagnosis at time of Disposition: Nephrotic syndrome Edema Qualifiers: Edema type: unspecified Qualified Code(s): R60.9 - Edema, unspecified Acute on chronic kidney failure Qualifiers: Acute renal failure type: unspecified Chronic kidney disease stage: unspecified stage Qualified Code(s): N17.9 - Acute kidney failure, unspecified - Discharge Dispostion Condition at time of disposition: Fair Decision to Admit order: Yes - Referrals Referrals: German Kurtz MD [Primary Care Provider] - - Patient Instructions - Post Discharge Activity
[2018-09-11 15:10] LABS: ALBUMIN 3.4 g/dl (3.4-5.0); ALK PHOS 94 U/L (45-117); ANION GAP 8 MMOL/L (8-16); BILIRUBIN,TOTAL 0.3 mg/dL (0.2-1); BLOOD UREA NITROGEN 92 mg/dL (7-18); CALCIUM 8.7 mg/dL (8.5-10.1); CHLORIDE 108 mmol/L (98-107); CO2 23 mmol/L (21-32); CREATININE 3.8 mg/dL (0.55-1.3); GLUCOSE,RANDOM 118 mg/dL (74-106); SGOT/AST 14 U/L (15-37); SGPT/ALT 17 U/L (13-61); SODIUM 139 mmol/L (136-145)
[2018-09-11 15:16] LABS: POTASSIUM 6.2 mmol/L (3.5-5.1)
[2018-09-11 15:41] LABS: URINE APPEARANCE CLEAR; URINE BILIRUBIN NEGATIVE (<2.0 mg/dL); URINE COLOR STRAW; URINE GLUCOSE (UA) NEGATIVE (NEGATIVE); URINE KETONE NEGATIVE (NEGATIVE); URINE LEUK ESTERASE NEGATIVE (NEGATIVE); URINE NITRITE NEGATIVE (NEGATIVE); URINE PROTEIN 2+ (NEGATIVE); URINE UROBILINOGEN NEGATIVE mg/dL (0.2-1.0)
[2018-09-11 15:44] LABS: URINE HYALINE CAST 1 /lpf; URINE MUCUS RARE
[2018-09-11] MEDS ORDERED: CALCIUM GLUCONATE 10% - 1,000 MG/10 ML VIAL IVPUSH ONE (15:47)
[2018-09-11] MEDS ORDERED: INSULIN REGULAR HUMAN 100 UNITS/ML *VIAL IVPUSH ONE (15:48)
[2018-09-11] MEDS ORDERED: DEXTROSE 50%-WATER - 25 GM/50 ML VIAL IVPUSH ONE (15:48)
[2018-09-11 15:52] LABS: N-TERMINAL BNP 1227.2 pg/ml (5-125)
[2018-09-11] MEDS ORDERED: CALCIUM GLUCONATE 10% - 1,000 MG/10 ML VIAL ONE (15:53)
[2018-09-11] MEDS ORDERED: INSULIN REGULAR HUMAN 100 UNITS/ML *VIAL ONE (15:54)
[2018-09-11] MEDS ORDERED: DEXTROSE 50%-WATER 25 GM/50 ML DISP.SYRIN ONE (15:54)
[2018-09-11] MEDS ORDERED: SODIUM POLYSTYRENE SULFONATE 15 GM/60 ML BOTTLE PO ONE (15:54)
[2018-09-11 15:58] LABS: BASO % 0.8 % (0-2.0); EOS % 5.1 % (0-4.5); HEMATOCRIT 25.4 % (35.4-49); HEMOGLOBIN 8.5 GM/dL (11.7-16.9); LYMPH % 21.8 % (8-40); MCH 29.6 pg (25.7-33.7); MCHC 33.5 g/dl (32.0-35.9); MEAN CELL VOLUME 88.4 fl (80-96); MONO % 11.6 % (3.8-10.2); NEUT % 60.7 % (42.8-82.8); PLATELET COUNT 208 K/MM3 (134-434); RBC 2.87 M/mm3 (4.00-5.60); WHITE BLOOD COUNT 8.3 K/mm3 (4.0-10.0)
[2018-09-11] MEDS ORDERED: SODIUM BICARBONATE 8.4% 50 MEQ/50 ML DISP.SYRIN IVPUSH ONE (15:58)
[2018-09-11] MEDS: ALBUTEROL SO4 0.083% IH SOL 2.5 MG/3 ML VIAL.NEB. NEB SCH ×4 (16:20→19:28)
[2018-09-11 16:37] LABS: ALBUMIN 3.6 g/dl (3.4-5.0); ALK PHOS 101 U/L (45-117); ANION GAP 7 MMOL/L (8-16); BILIRUBIN,TOTAL 0.4 mg/dL (0.2-1); BLOOD UREA NITROGEN 93 mg/dL (7-18); CALCIUM 8.8 mg/dL (8.5-10.1); CHLORIDE 108 mmol/L (98-107); CO2 27 mmol/L (21-32); CREATININE 3.8 mg/dL (0.55-1.3); GLUCOSE,RANDOM 88 mg/dL (74-106); SGOT/AST 10 U/L (15-37); SGPT/ALT 18 U/L (13-61); SODIUM 141 mmol/L (136-145); TOT PROT 7.4 g/dl (6.4-8.2)
[2018-09-11 16:44] LABS: POTASSIUM 6.1 mmol/L (3.5-5.1)
[2018-09-11 16:53] LABS: INR 1.01 (0.83-1.09); PROTHROMBIN TIME (PATIENT) 11.9 SEC (9.7-13.0)
[2018-09-11] MEDS ORDERED: ALBUTEROL SO4 0.083% IH SOL 2.5 MG/3 ML VIAL.NEB. NEB ONE ×3 (17:04→19:31)
[2018-09-11] MEDS ORDERED: SODIUM BICARBONATE 8.4% - 50 ML ONE (17:04)
--- NOTE | 2018-09-11 17:49 | CONSULT ---
Consult Consult Specialty:: Nephrology Reason for Consultation:: VILLA and hyperkalemia, called for a stat consult - History of Present Illness Chief Complaint: worsening edema History of Present Illness: Pt is a 67 year old male with pmhx of CKD, DM, CAD, CABG, and gout who presents to the er with worsening edema. He says that he is on lasix at home but is not helping. He has been drinking "alot" of thorpe juice to help with his gout. He as found to be hyperkalemic. He complains of shortness of breath. He complains of worsening lower ext edema. He is on an arb at home. He denies nsaid use. He follows with Dr Severino. 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 Cardio/Vascular: Yes: CAD, CHF, HTN, Hyperlipdemia, [place], Other (TALAT) Gastrointestinal: Yes: Irritable Bowel Disease Renal/: Yes: Renal Inusuff Endocrine: Yes: Diabetes Mellitus - Past Surgical History Past Surgical History: Yes: CABG, Cholecystectomy - Alcohol/Substance Use Hx Alcohol Use: No History of Substance Use: reports: None - Smoking History Smoking history: Never smoked Have you smoked in the past 12 months: No Aproximately how many cigarettes per day: 0 If you are a former smoker, when did you quit?: 40 years aqo - Social History ADL: Independent History of Recent Travel: No Home Medications - Allergies Allergies/Adverse Reactions: Allergies Allergy/AdvReac Type Severity Reaction Status Date / Time Penicillins Allergy Rash Verified 09/11/18 11:49 sumatriptan [From Imitrex] Allergy Verified 09/11/18 11:49 sumatriptan succinate Allergy Verified 09/11/18 11:49 [From Imitrex] ASPARTANE Allergy Severe HEADACHE Uncoded 09/11/18 11:49 TRYPTOPHAN Allergy Intermediate DIARRHEA/VO Uncoded 09/11/18 11:49 MITING - Home Medications Home Medications: Ambulatory Orders Aspirin [ASA -] 81 mg PO DAILY 09/20/15 Atorvastatin Ca [Lipitor] 80 mg PO HS 09/20/15 Carvedilol 25 mg PO BID 09/20/15 Cholecalciferol (Vitamin D3) [D3-2000] 2,000 unit PO DAILY 09/20/15 Insulin (Levemir) [Levemir Vial] 70 unit SQ BID 09/20/15 Nitroglycerin Sublingual [Nitrostat -] 0.4 mg SL [id number] PRN #30 tab 10/07/16 Exenatide [Byetta] 10 mcg SQ BID 02/14/17 Losartan Potassium [Cozaar -] 50 mg PO BID 02/14/17 oxyCODONE HCL [Roxicodone -] 10 mg PO Q4H PRN 02/14/17 Krill/Om-3/Dha/Epa/Phospho/Ast [Krill Oil 500 mg Softgel] 1 each PO BID Multivit-Min/FA/Lycopen/Lutein [Centrum Silver Men Tablet] 1 each PO DAILY 11/22 Nitroglycerin Patch [Nitro-Dur Patch -] 0.4 mg TD DAILY 11/22/17 Furosemide [Lasix -] 60 mg PO DAILY #60 tablet 01/26/18 Amlodipine Besylate 5 mg PO DAILY 07/27/18 Ferrous Sulfate [Iron] 325 mg PO DAILY 07/27/18 Hydroxyzine HCl 25 mg PO BID 07/27/18 Nedrow-3 Acid Ethyl Esters [Lovaza -] 1,000 mg PO HS 07/27/18 Family Disease History - Family Disease History Family Disease History: Diabetes: Mother, Heart Disease: Father, Other: Sister ( thyroid) Review of Systems - Review of Systems Constitutional: reports: Malaise. denies: Chills, Fever Eyes: reports: No Symptoms HENT: reports: No Symptoms Neck: reports: No Symptoms Cardiovascular: reports: Edema, Shortness of Breath Respiratory: reports: SOB, SOB on Exertion Genitourinary: reports: No Symptoms. denies: Dysuria Musculoskeletal: reports: Extremity Pain Neurological: reports: No Symptoms Hematology/Lymphatic: reports: No Symptoms Physical Exam Vital Signs: Vital Signs Temperature 97.5 F L 09/11/18 11:50 Pulse Rate 83 09/11/18 16:10 Respiratory Rate 22 H 09/11/18 16:10 Blood Pressure 153/60 09/11/18 16:10 O2 Sat by Pulse Oximetry (%) 96 09/11/18 16:10 Constitutional: Yes: Calm Eyes: Yes: Conjunctiva Clear HENT: Yes: Atraumatic Neck: Yes: Supple Cardiovascular: Yes: S1, S2 Respiratory: Yes: On Nasal O2 Gastrointestinal: Yes: Soft, Abdomen, Obese, Other (abd wall edema) Renal/: Yes: WNL Edema: LUE: 1+, RUE: 1+, LLE: 3+, RLE: 3+ Neurological: Yes: Oriented Psychiatric: Yes: Oriented Labs: CBC, BMP 09/11/18 15:30 09/11/18 15:30 Laboratory Tests 09/11/18 09/11/18 09/11/18 14:29 15:11 15:30 Hgb 8.5 L Sodium Potassium Chloride BUN Creatinine 3.8 H Albumin Urine Protein 2+ H 09/11/18 15:30 Hgb Sodium 141 Potassium 6.1 H* Chloride 108 H BUN 93 H Creatinine 3.8 H Albumin 3.6 Urine Protein Imaging - Results Chest X-ray: Report Reviewed Problem List - Problems (1) Acute on chronic kidney failure Code(s): N17.9 - ACUTE KIDNEY FAILURE, UNSPECIFIED; N18.9 - CHRONIC KIDNEY DISEASE, UNSPECIFIED Qualifiers: Acute renal failure type: unspecified Chronic kidney disease stage: unspecified stage Qualified Code(s): N17.9 - Acute kidney failure, unspecified ; N18.9 - Chronic kidney disease, unspecified (2) Edema Code(s): R60.9 - EDEMA, UNSPECIFIED Qualifiers: Edema type: unspecified Qualified Code(s): R60.9 - Edema, unspecified (3) CKD (chronic kidney disease) Code(s): N18.9 - CHRONIC KIDNEY DISEASE, UNSPECIFIED (4) Diabetes Code(s): E11.9 - TYPE 2 DIABETES MELLITUS WITHOUT COMPLICATIONS Qualifiers: 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 type: type 2 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 shelter insulin use: with manager terminal use (5) Hyperkalemia Code(s): E87.5 - HYPERKALEMIA Assessment/Plan Impression 1. VILLA 2. hyperkalemia 3. ckd 4. fluid overload 5. cad 6. dm Plan - check ultrasound kidneys and bladder - place khan if obstructed - stop losartan - give lasix 80 mg iv now - pt does not want HD therapy at this time - potassium treated medically in er - repeat bmp - will need to be on tele monitor - discussed with er and medical team - low potassium diet - daily weights - monitor urine output Dr Alatorre
[2018-09-11] MEDS ORDERED: FUROSEMIDE 40 MG/4 ML INJECTABLE VIAL IVPB ONE (17:54)
[2018-09-11] MEDS ORDERED: FUROSEMIDE 40 MG/4 ML INJECTABLE VIAL ONE (18:31)
[2018-09-11] MEDS ORDERED: NITROGLYCERIN SUBLINGUAL 1/150 0.4 MG TAB SL PRN (18:57)
[2018-09-11] MEDS ORDERED: oxyCODONE HCL 5 MG TABLET PO PRN (18:57)
[2018-09-11] MEDS ORDERED: amLODIPine BESYLATE 5 MG TABLET (FP) PO SCH (19:00)
[2018-09-11] MEDS ORDERED: oxyCODONE HCL 5 MG TABLET ONE ×2 (19:22→23:19)
[2018-09-11] MEDS ORDERED: amLODIPine BESYLATE 5 MG TABLET (FP) ONE (19:31)
[2018-09-11] MEDS ORDERED: ACETAMINOPHEN 325 MG TABLET (FP) PO PRN (20:19)
--- NOTE | 2018-09-11 21:23 | HP ---
Admitting History and Physical - Admission Chief Complaint: Lower extremity edema History of Present Illness: 67 year old M with h/o DM2, CAD (s/p 4V CABG 2015 at [facility]), diastolic CHF, CKD ( baseline cr 2.0), TIA, HTN, internal hemorrhoids who presents to ED with three days of worsening lower extremity edema and mild dyspnea. At baseline, pt reports mild edema and has been admitted in the past for volume overload. Pt states his right foot gout had flared up and he began his usual regimen for bernal juice to decrease his swelling and pain in the affected foot. endorses, pt has been consuming, "gallons and gallons" of bernal juice for the last three days, during which time he noted worsening LE edema and mild dyspnea. Pt presented via ambulance to ED for evaluation. In ED, vitals were 105/48, HR 75, T 97.5, RR 17, O2 sat 95% on room air. Labs notable for BUN 92, Cr 3.8, K 6.2. EKG and CXR were unremarkable. ED staff reviewed case with Dr. Malcolm Cordon, pt's crossbar switch adjuster, who reports that patient had a renal biopsy recently that confirmed diabetic nephropathy. Patient also known to have chronic proteinuria. Worsening edema most likely represents nephrotic syndrome. Pt given calcium gluconate/D50/insulin/bicarb, and kayexalate for hyperkalemia. Pt was also evaluated by nephrology who recommended lasix 8omg STAT. pt admitted inpt for further management of VILLA. 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, Other (possible restless leg syndrome) Cardiovascular: Yes: CAD, CHF, HTN, Hyperlipdemia, [place], Other (Cardiac arrest 2000 carotid artery stenosis) Pulmonary: Yes: Other (PNA after spinal surgery 2000) Gastrointestinal: Yes: Irritable Bowel Disease Renal/: Yes: Renal Inusuff, Other (testicular cancer) Heme/Onc: Yes: Anemia, Other (lymphoma, testicular cancer) Psych: Yes: Depression Musculoskeletal: Yes: Chronic low back pain, Osteoarthritis, Other (sciatica) Rheumatology: Yes: Gout Endocrine: Yes: Diabetes Mellitus - Past Surgical History Past Surgical History: Yes: CABG, Cholecystectomy (1997) Additional Past Surgical History: 2007 right knee surgery 2011 L-spine surgery 2013 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 location) Brain surgery as a child abdominal surgery to remove affected lymph nodes due to metastatic testicular cancer - Advance Directives Advance Directives: Yes: DNR - Smoking History Smoking history: Former smoker Have you smoked in the past 12 months: No Aproximately how many cigarettes per day: 0 If you are a former smoker, when did you quit?: 1980 - Alcohol/Substance Use Hx Alcohol Use: No History of Substance Use: reports: None - Social History Usual Living Arrangement: Yes: With Spouse ADL: Independent History of Recent Travel: No Home Medications - Allergies Allergies/Adverse Reactions: Allergies Allergy/AdvReac Type Severity Reaction Status Date / Time Penicillins Allergy Rash Verified 09/11/18 11:49 sumatriptan [From Imitrex] Allergy Verified 09/11/18 11:49 sumatriptan succinate Allergy Verified 09/11/18 11:49 [From Imitrex] ASPARTANE Allergy Severe HEADACHE Uncoded 09/11/18 11:49 TRYPTOPHAN Allergy Intermediate DIARRHEA/VO Uncoded 09/11/18 11:49 MITING - Home Medications Home Medications: Ambulatory Orders Aspirin [ASA -] 81 mg PO DAILY 09/20/15 Atorvastatin Ca [Lipitor] 80 mg PO HS 09/20/15 Carvedilol 25 mg PO BID 09/20/15 Cholecalciferol (Vitamin D3) [D3-2000] 2,000 unit PO DAILY 09/20/15 Insulin (Levemir) [Levemir Vial] 70 unit SQ BID 09/20/15 Nitroglycerin Sublingual [Nitrostat -] 0.4 mg SL [id number] PRN #30 tab 10/07/16 Exenatide [Byetta] 10 mcg SQ BID 02/14/17 Losartan Potassium [Cozaar -] 50 mg PO BID 02/14/17 oxyCODONE HCL [Roxicodone -] 10 mg PO Q4H PRN 02/14/17 Krill/Om-3/Dha/Epa/Phospho/Ast [Krill Oil 500 mg Softgel] 1 each PO BID Multivit-Min/FA/Lycopen/Lutein [Centrum Silver Men Tablet] 1 each PO DAILY 11/22 Nitroglycerin Patch [Nitro-Dur Patch -] 0.4 mg TD DAILY 11/22/17 Furosemide [Lasix -] 60 mg PO DAILY #60 tablet 01/26/18 Amlodipine Besylate 5 mg PO DAILY 07/27/18 Ferrous Sulfate [Iron] 325 mg PO DAILY 07/27/18 Hydroxyzine HCl 25 mg PO BID 07/27/18 [place]-3 Acid Ethyl Esters [Lovaza -] 1,000 mg PO HS 07/27/18 Family Disease History - Family Disease History Family Disease History: Diabetes: Mother ( (80s) ), Heart Disease: Father ( (90s)), Other: Sister (alive (69) thyroid disease) Review of Systems - Review of Systems Eyes: reports: Other (macular edema) HENT: reports: No Symptoms Neck: reports: No Symptoms Cardiovascular: reports: Edema, Shortness of Breath Respiratory: reports: SOB Gastrointestinal: reports: Rectal Bleeding (as per pt fromn hemorrhoidal source , has been chronic for many years) Genitourinary: reports: No Symptoms Breasts: reports: No Symptoms Reported Musculoskeletal: reports: Back Pain, Joint Pain Neurological: reports: No Symptoms Endocrine: reports: No Symptoms Hematology/Lymphatic: reports: No Symptoms Psychiatric: reports: No Symptoms Physical Examination Vital Signs: Vital Signs Temperature 98.2 F 09/11/18 18:45 Pulse Rate 81 09/11/18 18:45 Respiratory Rate 20 09/11/18 18:45 Blood Pressure 179/60 H 09/11/18 18:45 O2 Sat by Pulse Oximetry (%) 96 09/11/18 18:45 Constitutional: Yes: Well Nourished, No Distress, Anxious Eyes: Yes: Conjunctiva Clear, EOM Intact, PERRL HENT: Yes: Atraumatic, Normocephalic, Other (long thin unkempt mitchell hair) Neck: Yes: Supple, Trachea Midline Cardiovascular: Yes: Regular Rate and Rhythm Respiratory: Yes: Regular, Diminished (at the bases) Gastrointestinal: Yes: Soft, Abdomen, Obese, Hypoactive Bowel Sounds ...Rectal Exam: Yes: Deferred Musculoskeletal: Yes: Back Pain, Joint Stiffness, Muscle Weakness Extremities: Yes: Cool Edema: Yes Edema: LLE: 2+, RLE: 2+ Peripheral Pulses WNL: No Peripheral Pulses: Left Radial: 2+, Right Radial: 2+, Left Doralis Pedis: 1+, Right Dorsalis Pedis: 1+ Integumentary: Yes: Venous Stasis Changes Neurological: Yes: Alert, Oriented, Unsteady Gait ...Motor Strength: WNL Psychiatric: Yes: Alert, Oriented Labs: CBC, BMP 09/11/18 15:30 Imaging - Results X-ray: Report Reviewed (CXR 09/11/2018: Impression. Cardiomegaly. No evidence of pneumonia, CHF, pleural effusion, or pneumothorax. Elliptical airspace opacity/ atelectasis - left lower lobe. Refer to the CT of the chest July 10, 2018. ) Ultrasound: Report Reviewed (Pelvic sono 09/11/2018 Impression: Both kidneys appear unremarkable. Moderately distended urinary bladder without wall thickening. Bilateral ureteral jets were identified. Patient could not void. Prostate gland was not visualized. Correlate clinically for further evaluation. Reported By: Reza Chandler MD), Other (LE doppler studies 09/11/2018 IMPRESSION: No evidence of deep venous thrombosis. Reported By: Pavan Bazan MD [id number]) Problem List - Problems (1) Prophylactic measure Assessment/Plan: bowel regimen: senna and colace OOB to chair Fall precautions, ambulate with assistive device. DVT PPX: ASA, SCDs and venodynes. Pt states his hemorrhoids have been bleeding excessively and refuses SC heparin. Code(s): Z29.9 - ENCOUNTER FOR PROPHYLACTIC MEASURES, UNSPECIFIED (2) Acute on chronic kidney failure Assessment/Plan: nephrology following pt, recommendations appreciated Lasix 60mg TID monitor electrolytes Fluid restrict 1.5L daily cardiorenal diet pt refused khan placement Code(s): N17.9 - ACUTE KIDNEY FAILURE, UNSPECIFIED; N18.9 - CHRONIC KIDNEY DISEASE, UNSPECIFIED Qualifiers: Acute renal failure type: unspecified Chronic kidney disease stage: unspecified stage Qualified Code(s): N17.9 - Acute kidney failure, unspecified ; N18.9 - Chronic kidney disease, unspecified (3) Edema extremities Assessment/Plan: SCDs elevated extremities in bed Doppler studies negative for DVT daily weight strict intake and outpt Code(s): R60.0 - LOCALIZED EDEMA (4) CAD (coronary artery disease) Assessment/Plan: continue pt's home meds: lovaza 1G qhs, coreg 25mg BID, lipitor 80mg qhs nitro PRN angina Echocardiogram in AM Code(s): I25.10 - ATHSCL HEART DISEASE OF [place] CORONARY ARTERY W/O ANG PCTRS (5) Diabetes Assessment/Plan: LEvemir 35units qhs (dose decreased from 35units BID at home) Fingerstick ACHS insulin sliding scale Code(s): E11.9 - TYPE 2 DIABETES MELLITUS WITHOUT COMPLICATIONS Qualifiers: 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 type: type 2 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 manager terminal insulin use: with nursing home use (6) HTN (hypertension) Assessment/Plan: norvasc 5mg daily hydralazine 25mg BID if pt becomes hypotensive, meds can be dose adjusted down in order to maintain renal perfusion d/c losartan Code(s): I10 - ESSENTIAL (PRIMARY) HYPERTENSION (7) Hematochezia Assessment/Plan: hemorroidal flare annusol hem supp x 3days Code(s): K92.1 - MELENA (8) Hyperkalemia Assessment/Plan: repeat K pending tonight place on telemetry Code(s): E87.5 - HYPERKALEMIA (9) Anemia Assessment/Plan: iron tabs + vitamin C trend H/H Code(s): D64.9 - ANEMIA, UNSPECIFIED Qualifiers: Anemia type: other cause Other causes of anemia: acute posthemorrhagic Qualified Code(s): D62 - Acute posthemorrhagic anemia (10) Lower back pain Assessment/Plan: PRN APAP for moderate pain PRN oxycodone for severe pain Code(s): M54.5 - LOW BACK PAIN Assessment/Plan DISPO: home when stable Status: DNR/DNI (see paper chart for signed paperwork) Visit type - Emergency Visit Emergency Visit: Yes ED Registration Date: 09/11/18 Care time: The patient presented to the Emergency Department on the above date and was hospitalized for further evaluation of their emergent condition. - New Patient This patient is new to me today: Yes Date on this admission: 09/11/18 - Critical Care Critical Care patient: No
[2018-09-11 21:34] LABS: BASO % 0.4 % (0-2.0); EOS % 4.7 % (0-4.5); HEMATOCRIT 26.7 % (35.4-49); HEMOGLOBIN 8.9 GM/dL (11.7-16.9); LYMPH % 14.6 % (8-40); MCH 29.7 pg (25.7-33.7); MCHC 33.4 g/dl (32.0-35.9); MEAN CELL VOLUME 88.7 fl (80-96); MONO % 8.8 % (3.8-10.2); NEUT % 71.5 % (42.8-82.8); PLATELET COUNT 235 K/MM3 (134-434); RBC 3.01 M/mm3 (4.00-5.60); RDW 15.2 % (11.9-15.9); WHITE BLOOD COUNT 10.5 K/mm3 (4.0-10.0)
[2018-09-11] MEDS ORDERED: PHOSPHO PO SCH (22:00)
[2018-09-11] MEDS ORDERED: DHA PO SCH (22:00)
[2018-09-11] MEDS ORDERED: [UNRECOGNIZED DRUG - OTHER] PO SCH (22:00)
[2018-09-11] MEDS ORDERED: EPA PO SCH (22:00)
[2018-09-11] MEDS ORDERED: KRILL PO SCH (22:00)
[2018-09-11] MEDS ORDERED: hydrALAZINE HCL 25 MG TABLET (FP) PO SCH (22:00)
[2018-09-11] MEDS ORDERED: AST PO SCH (22:00)
[2018-09-11] MEDS: oxyCODONE HCL 5 MG TABLET PO PRN (22:15)
[2018-09-11 22:19] LABS: ALBUMIN 3.9 g/dl (3.4-5.0); ALK PHOS 110 U/L (45-117); ANION GAP 8 MMOL/L (8-16); BILIRUBIN,TOTAL 0.5 mg/dL (0.2-1); BLOOD UREA NITROGEN 91 mg/dL (7-18); CALCIUM 9.3 mg/dL (8.5-10.1); CHLORIDE 107 mmol/L (98-107); CO2 26 mmol/L (21-32); CREATININE 3.6 mg/dL (0.55-1.3); GLUCOSE,RANDOM 157 mg/dL (74-106); POTASSIUM 5.6 mmol/L (3.5-5.1); SGOT/AST 14 U/L (15-37); SGPT/ALT 21 U/L (13-61); SODIUM 141 mmol/L (136-145); TOT PROT 7.8 g/dl (6.4-8.2)
[2018-09-11] MEDS ORDERED: hydrALAZINE HCL 25 MG TABLET (FP) ONE (23:05)
[2018-09-11] MEDS ORDERED: CARVEDILOL 12.5 MG TABLET (FP) ONE (23:05)
[2018-09-11] MEDS ORDERED: ATORVASTATIN CA 80 MG TABLET (FP) ONE (23:06)
[2018-09-11] MEDS ORDERED: DOCUSATE SODIUM 100 MG CAPSULE (FP) PO ONE (23:06)
[2018-09-11] MEDS ORDERED: INSULIN (LEVEMIR) 100 UNITS/ML UNITS SQ ONE (23:06)
[2018-09-11] MEDS: OMEGA-3 ACID ETHYL ESTERS (FATTY-ACIDS) 1 GM CAPSULE (FP) PO SCH (23:14)
[2018-09-11] MEDS: INSULIN (LEVEMIR) 100 UNITS/ML UNITS SQ SCH (23:14)
[2018-09-11] MEDS: INSULIN SLIDING SCALE (NOVOLOG) 1 VIAL SQ SCH (23:14)
[2018-09-11] MEDS: CARVEDILOL 25 MG TABLET (FP) PO SCH (23:14)
[2018-09-11] MEDS: ATORVASTATIN CA 40 MG TABLET (FP) PO SCH (23:14)
[2018-09-11] MEDS: DOCUSATE SODIUM 100 MG CAPSULE (FP) PO SCH (23:14)
[2018-09-11] MEDS: SENNOSIDES 8.6MG TABLET (FP) PO SCH (23:15)
[2018-09-12] MEDS ORDERED: FUROSEMIDE 40 MG/4 ML INJECTABLE VIAL IVPUSH SCH
[2018-09-12] MEDS ORDERED: FUROSEMIDE 40 MG/4 ML INJECTABLE VIAL ONE ×2 (06:18→15:12)
[2018-09-12] MEDS: FUROSEMIDE 40 MG/4 ML INJECTABLE VIAL IVPUSH SCH ×2 (06:29→15:16)
[2018-09-12 06:33] LABS: BASO % 0.5 % (0-2.0); EOS % 5.3 % (0-4.5); HEMATOCRIT 27.3 % (35.4-49); HEMOGLOBIN 9.3 GM/dL (11.7-16.9); LYMPH % 14.5 % (8-40); MCH 30.1 pg (25.7-33.7); MCHC 34.1 g/dl (32.0-35.9); MEAN CELL VOLUME 88.4 fl (80-96); MEAN PLT VOLUME 7.7 fl (7.5-11.1); MONO % 9.3 % (3.8-10.2); NEUT % 70.4 % (42.8-82.8); PLATELET COUNT 232 K/MM3 (134-434); RBC 3.08 M/mm3 (4.00-5.60); RDW 15.2 % (11.9-15.9); WHITE BLOOD COUNT 8.8 K/mm3 (4.0-10.0)
[2018-09-12 06:39] LABS: INR 1.08 (0.83-1.09); PROTHROMBIN TIME (PATIENT) 12.7 SEC (9.7-13.0)
[2018-09-12 06:41] LABS: ACTIVATED PTT 34.2 SECONDS (25.2-36.5)
[2018-09-12 07:16] LABS: ALBUMIN 3.8 g/dl (3.4-5.0); ALK PHOS 113 U/L (45-117); ANION GAP 7 MMOL/L (8-16); BILIRUBIN,TOTAL 0.7 mg/dL (0.2-1); BLOOD UREA NITROGEN 88 mg/dL (7-18); CALCIUM 9.3 mg/dL (8.5-10.1); CHLORIDE 106 mmol/L (98-107); CHOLESTEROL 140 mg/dL (50-200); CO2 27 mmol/L (21-32); CREATININE 3.6 mg/dL (0.55-1.3); GLUCOSE,RANDOM 137 mg/dL (74-106); HDL CHOLESTEROL 28 mg/dL (40-60); MAGNESIUM 3.2 mg/dL (1.8-2.4); N-TERMINAL BNP 1215.4 pg/ml (5-125); PHOSPHOROUS 5.4 mg/dL (2.5-4.9); POTASSIUM 5.6 mmol/L (3.5-5.1); SGOT/AST 13 U/L (15-37); SGPT/ALT 19 U/L (13-61); SODIUM 140 mmol/L (136-145); TOT PROT 7.8 g/dl (6.4-8.2); TRIGLYCERIDES 153 mg/dL (0-150)
[2018-09-12] MEDS ORDERED: INSULIN (NOVOLOG) ASPART 100 UNITS/ML 10ML VIAL ONE ×2 (08:57→12:14)
[2018-09-12] MEDS: INSULIN SLIDING SCALE (NOVOLOG) 1 VIAL SQ SCH ×4 (09:00→23:32)
--- NOTE | 2018-09-12 09:14 | PN ---
Progress Note, Physician History of Present Illness: Pt seen and examined at bedside. He is awake and alert. He complains of lower ext edema. He feels that his breathing is improved from yesterday. Pt says that he does not want to be on a diabetic diet. - Current Medication List Current Medications: Active Medications Acetaminophen (Tylenol -) 650 mg PO Q6H PRN PRN Reason: FEVER Amlodipine Besylate (Norvasc -) 5 mg PO DAILY [facility] Last Admin: 09/11/18 19:36 Dose: 5 mg Ascorbic Acid (Vitamin C -) 500 mg PO DAILY [facility] Aspirin (Asa -) 81 mg PO DAILY [facility] Atorvastatin Calcium (Lipitor -) 80 mg PO [facility] Last Admin: 09/11/18 23:14 Dose: 80 mg Carvedilol (Coreg -) 25 mg PO BID [facility] Last Admin: 09/11/18 23:14 Dose: 25 mg Docusate Sodium (Colace -) 100 mg PO BID [facility] Last Admin: 09/11/18 23:14 Dose: 100 mg Ferrous Sulfate (Feosol -) 325 mg PO DAILY [facility] Furosemide (Lasix Injection -) 40 mg IVPUSH BID@0600,1400 [facility] Last Admin: 09/12/18 06:29 Dose: 40 mg Hydralazine HCl (Apresoline -) 25 mg PO BID [facility] Last Admin: 09/11/18 23:13 Dose: 25 mg Hydrocortisone Acetate (Anusol Hc Suppository -) 25 mg RC [facility] Stop: 09/13/18 22:00 Insulin Aspart (Novolog Vial Sliding Scale -) 1 vial SQ [facility]; Protocol Last Admin: 09/12/18 09:00 Dose: 2 units Insulin Detemir (Levemir Vial) 30 units SQ [facility] Last Admin: 09/11/18 23:14 Dose: Not Given Nitroglycerin (Nitrostat -) 0.4 mg SL Q5M PRN PRN Reason: PAIN [id number] Ethyl Esters (Lovaza -) 1 gm PO [facility] Last Admin: 09/11/18 23:14 Dose: Not Given Oxycodone HCl (Roxicodone -) 10 mg PO Q4H PRN PRN Reason: PAIN LEVEL 7 - 10 Last Admin: 09/11/18 22:15 Dose: 10 mg Senna (Senna -) 2 tab PO [facility] Last Admin: 09/11/18 23:15 Dose: Not Given - Objective Vital Signs: Vital Signs Temperature 97.6 F 09/12/18 02:19 Pulse Rate 73 09/12/18 02:19 Respiratory Rate 18 09/12/18 02:19 Blood Pressure 141/59 L 09/12/18 02:19 O2 Sat by Pulse Oximetry (%) 97 09/12/18 02:19 Constitutional: Yes: Calm Eyes: Yes: Conjunctiva Clear HENT: Yes: Atraumatic Cardiovascular: Yes: S1, S2 Respiratory: Yes: On Nasal O2 Gastrointestinal: Yes: Soft, Other (abdominal wall edema) Genitourinary: Yes: WNL Extremities: Yes: Other (bilateral leg pain) Edema: Yes Edema: LLE: 3+, RLE: 3+ Neurological: Yes: Oriented Psychiatric: Yes: Oriented Labs: CBC, BMP 09/12/18 05:35 09/12/18 05:35 INR, PTT INR 1.08 (0.83-1.09) 09/12/18 05:35 Problem List - Problems (1) Acute on chronic kidney failure Code(s): N17.9 - ACUTE KIDNEY FAILURE, UNSPECIFIED; N18.9 - CHRONIC KIDNEY DISEASE, UNSPECIFIED Qualifiers: Acute renal failure type: unspecified Chronic kidney disease stage: unspecified stage Qualified Code(s): N17.9 - Acute kidney failure, unspecified ; N18.9 - Chronic kidney disease, unspecified (2) Edema Code(s): R60.9 - EDEMA, UNSPECIFIED Qualifiers: Edema type: unspecified Qualified Code(s): R60.9 - Edema, unspecified (3) CKD (chronic kidney disease) Code(s): N18.9 - CHRONIC KIDNEY DISEASE, UNSPECIFIED (4) Diabetes Code(s): E11.9 - TYPE 2 DIABETES MELLITUS WITHOUT COMPLICATIONS Qualifiers: 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 type: type 2 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 long term care pharmacist insulin use: with long term care pharmacist use (5) Hyperkalemia Code(s): E87.5 - HYPERKALEMIA Assessment/Plan Current Medications Generic Name Dose Route Start Last Admin Trade Name Freq PRN Reason Stop Dose Admin Acetaminophen 650 mg 09/11/18 20:19 Tylenol - PO Q6H PRN FEVER Amlodipine Besylate 5 mg 09/11/18 19:00 09/11/18 19:36 Norvasc - PO 5 mg DAILY [facility] Administration Ascorbic Acid 500 mg 09/12/18 10:00 Vitamin C - PO DAILY [facility] Aspirin 81 mg 09/12/18 10:00 Asa - PO DAILY [facility] Atorvastatin Calcium 80 mg 09/11/18 22:00 09/11/18 23:14 Lipitor - PO 80 mg HS [facility] Administration Carvedilol 25 mg 09/11/18 22:00 09/11/18 23:14 Coreg - PO 25 mg BID [facility] Administration Docusate Sodium 100 mg 09/11/18 22:00 09/11/18 23:14 Colace - PO 100 mg BID [facility] Administration Ferrous Sulfate 325 mg 09/12/18 10:00 Feosol - PO DAILY [facility] Furosemide 40 mg 09/12/18 06:00 09/12/18 06:29 Lasix Injection - IVPUSH 40 mg BID@0600,1400 [facility] Administration Hydralazine HCl 25 mg 09/11/18 22:00 09/11/18 23:13 Apresoline - PO 25 mg BID [facility] Administration Hydrocortisone Acetate 25 mg 09/12/18 22:00 Anusol Hc Suppository - RC 09/13/18 22:00 HS [facility] Insulin Aspart 1 vial 09/11/18 22:00 09/12/18 09:00 Novolog Vial Sliding Scale - SQ 2 units ACHS [facility] Administration Protocol Insulin Detemir 30 units 09/11/18 22:00 09/11/18 23:14 Levemir Vial SQ Not Given HS [facility] Nitroglycerin 0.4 mg 09/11/18 18:57 Nitrostat - SL Q5M PRN PAIN Mmrzf-6-Erau Ethyl Esters 1 gm 09/11/18 22:00 09/11/18 23:14 Lovaza - PO Not Given HS [facility] Oxycodone HCl 10 mg 09/11/18 20:01 09/11/18 22:15 Roxicodone - PO 10 mg Q4H PRN Administration PAIN LEVEL 7 - 10 Senna 2 tab 09/11/18 22:00 09/11/18 23:15 Senna - PO Not Given HS [facility] Impression 1. VILLA 2. hyperkalemia 3. ckd 4. fluid overload 5. cad 6. dm Plan - cont with IV lasix - monitor output - lasix should also help with hyperkalemia - hold losartan - renal diet - amlodipine can contribute to lower ext edema, will hold it and increase hydralazine dose, monitor bp - check bladder scan after pt voids - low potassium diet - daily weights Dr Alatorre
[2018-09-12] MEDS ORDERED: oxyCODONE HCL 5 MG TABLET ONE (09:34)
[2018-09-12] MEDS: ASPIRIN 81 MG CHEWABLE TABLETS PO SCH (10:00)
[2018-09-12] MEDS: DOCUSATE SODIUM 100 MG CAPSULE (FP) PO SCH ×2 (10:00→23:30)
[2018-09-12] MEDS: hydrALAZINE HCL 50 MG TABLET (FP) PO SCH ×2 (10:00→23:30)
[2018-09-12] MEDS: CARVEDILOL 25 MG TABLET (FP) PO SCH ×2 (10:05→23:30)
[2018-09-12] MEDS: FERROUS SO4 325 MG TABLET (FP) PO SCH (10:10)
[2018-09-12] MEDS: ASCORBIC ACID 500 MG TABLET (FP) PO SCH (10:15)
--- NOTE | 2018-09-12 11:03 | PN ---
Progress Note, Physician Chief Complaint: Pt sitting in stretcher in no acute distress. reports feeling lousy today, c/o chronic knee pain. pt considering HD if needed. denies any chest pain, worsening sob, n/v/d - Current Medication List Current Medications: Active Medications Acetaminophen (Tylenol -) 650 mg PO Q6H PRN PRN Reason: FEVER Ascorbic Acid (Vitamin C -) 500 mg PO DAILY [facility] Aspirin (Asa -) 81 mg PO DAILY [facility] Atorvastatin Calcium (Lipitor -) 80 mg PO [facility] Last Admin: 09/11/18 23:14 Dose: 80 mg Carvedilol (Coreg -) 25 mg PO BID [facility] Last Admin: 09/11/18 23:14 Dose: 25 mg Docusate Sodium (Colace -) 100 mg PO BID [facility] Last Admin: 09/11/18 23:14 Dose: 100 mg Ferrous Sulfate (Feosol -) 325 mg PO DAILY [facility] Furosemide (Lasix Injection -) 40 mg IVPUSH BID@0600,1400 [facility] Last Admin: 09/12/18 06:29 Dose: 40 mg Hydralazine HCl (Apresoline -) 50 mg PO BID [facility] Hydrocortisone Acetate (Anusol Hc Suppository -) 25 mg RC [facility] Stop: 09/13/18 22:00 Insulin Aspart (Novolog Vial Sliding Scale -) 1 vial SQ [facility]; Protocol Last Admin: 09/12/18 09:00 Dose: 2 units Insulin Detemir (Levemir Vial) 30 units SQ [facility] Last Admin: 09/11/18 23:14 Dose: Not Given Nitroglycerin (Nitrostat -) 0.4 mg SL Q5M PRN PRN Reason: PAIN Caqah-2-Rlqu Ethyl Esters (Lovaza -) 1 gm PO [facility] Last Admin: 09/11/18 23:14 Dose: Not Given Oxycodone HCl (Roxicodone -) 10 mg PO Q4H PRN PRN Reason: PAIN LEVEL 7 - 10 Last Admin: 09/11/18 22:15 Dose: 10 mg Senna (Senna -) 2 tab PO [facility] Last Admin: 09/11/18 23:15 Dose: Not Given - Objective Vital Signs: Vital Signs Temperature 97.6 F 09/12/18 02:19 Pulse Rate 73 09/12/18 02:19 Respiratory Rate 18 09/12/18 02:19 Blood Pressure 141/59 L 09/12/18 02:19 O2 Sat by Pulse Oximetry (%) 97 09/12/18 02:19 Constitutional: Yes: Well Nourished, No Distress, Calm Cardiovascular: Yes: Regular Rate and Rhythm Respiratory: Yes: Diminished, SOB (improved) Gastrointestinal: Yes: WNL, Normal Bowel Sounds, Soft. No: Distention, Tenderness Genitourinary: Yes: WNL Extremities: Yes: WNL Edema: Yes Edema: LLE: 2+, RLE: 2+ Neurological: Yes: WNL, Alert, Oriented Psychiatric: Yes: WNL, Alert, Oriented Labs: CBC, BMP 09/12/18 05:35 09/12/18 05:35 INR, PTT INR 1.08 (0.83-1.09) 09/12/18 05:35 Problem List - Problems (1) Acute on chronic kidney failure Assessment/Plan: persists, minimal improvement renal/bladder us - w/out acute findings, distended bladder noted pt agreeable for HD if needed nephrology following Code(s): N17.9 - ACUTE KIDNEY FAILURE, UNSPECIFIED; N18.9 - CHRONIC KIDNEY DISEASE, UNSPECIFIED Qualifiers: Acute renal failure type: unspecified Chronic kidney disease stage: stage 4 (severe) Qualified Code(s): N17.9 - Acute kidney failure, unspecified; N18.4 - Chronic kidney disease, stage 4 (severe) (2) Hyperkalemia Assessment/Plan: mild improvement monitor Code(s): E87.5 - HYPERKALEMIA (3) Lower extremity edema Assessment/Plan: persists continue iv lasix cardiology consult appreciated Code(s): R60.0 - LOCALIZED EDEMA (4) CAD (coronary artery disease) Assessment/Plan: no acute ACS continue asa/statin Code(s): I25.10 - ATHSCL HEART DISEASE OF [place] CORONARY ARTERY W/O ANG PCTRS Qualifiers: [place] vs. transplanted heart: [place] heart (5) Diabetes Assessment/Plan: HgA1c 8.2 BGM, Insulin sliding scale levemir diab diet Code(s): E11.9 - TYPE 2 DIABETES MELLITUS WITHOUT COMPLICATIONS Qualifiers: 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 type: type 2 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 salvage determiner insulin use: with salvage determiner use 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 complication status: with kidney complications 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 complication detail: with chronic kidney disease Chronic kidney disease stage: stage 4 (severe) Qualified Code(s): E11.22 - Type 2 diabetes mellitus with diabetic chronic kidney disease; N18.4 - Chronic kidney disease, stage 4 (severe); Z79.4 - superintendent [employer] (current) use of insulin (6) HTN (hypertension) Assessment/Plan: elevated bp goal 130/80 hydralazine increased continue home regimen Code(s): I10 - ESSENTIAL (PRIMARY) HYPERTENSION Qualifiers: Hypertension type: essential hypertension Qualified Code(s): I10 - Essential (primary) hypertension (7) Anemia Assessment/Plan: chronic, stable Code(s): D64.9 - ANEMIA, UNSPECIFIED Qualifiers: Anemia type: due to chronic kidney disease Chronic kidney disease stage: stage 4 (severe) Qualified Code(s): N18.4 - Chronic kidney disease, stage 4 ( severe); D63.1 - Anemia in chronic kidney disease (8) Hyperlipidemia Assessment/Plan: stable continue lipitor/lovaza outpt monitoring Code(s): E78.5 - HYPERLIPIDEMIA, UNSPECIFIED
[2018-09-12] MEDS: oxyCODONE HCL 5 MG TABLET PO PRN (11:09)
[2018-09-12] MEDS ORDERED: oxyCODONE HCL 10 MG SUSTAINED ACTING TABLET ONE (12:00)
[2018-09-12] MEDS: oxyCODONE HCL 10 MG SUSTAINED ACTING TABLET PO SCH ×2 (12:10→23:28)
--- NOTE | 2018-09-12 13:16 | EKG ---
Test Reason : Blood Pressure : / mmHG Vent. Rate : 067 BPM Atrial Rate : 067 BPM P-R Int : 196 ms QRS Dur : 106 ms QT Int : 406 ms P-R-T Axes : 062 057 040 degrees QTc Int : 429 ms POOR DATA QUALITY, INTERPRETATION MAY BE ADVERSELY AFFECTED NORMAL SINUS RHYTHM NORMAL ECG WHEN COMPARED WITH ECG OF 11-SEP-2018 14:53, [place] INTERVAL HAS DECREASED Confirmed by JOSS FANG, CHRISTIANNE ([id number]) on 09/12/2018 1:16:03 PM Referred By: Confirmed By:CHRISTIANNE COREAS MD
--- NOTE | 2018-09-12 13:22 | EKG ---
Test Reason : Blood Pressure : / mmHG Vent. Rate : 065 BPM Atrial Rate : 065 BPM P-R Int : 242 ms QRS Dur : 116 ms QT Int : 404 ms P-R-T Axes : 040 056 021 degrees QTc Int : 420 ms SINUS RHYTHM WITH 1ST DEGREE A-V BLOCK CANNOT RULE OUT ANTERIOR INFARCT (CITED ON OR BEFORE 06-OCT-2016) ABNORMAL ECG WHEN COMPARED WITH ECG OF 19-AUG-2018 08:36, NO SIGNIFICANT CHANGE WAS FOUND Confirmed by CHRISTIANNE COREAS MD ([id number]) on 09/12/2018 1:21:36 PM Referred By: Confirmed By:CHRISTIANNE COREAS MD
--- NOTE | 2018-09-12 13:27 | CON.CARD ---
Consult Consult Specialty:: cardiology Referred by:: Evelyn Verduzco Reason for Consultation:: Leg edema. Coronary artery disease - History of Present Illness Chief Complaint: Lower extremity swelling and pain. History of Present Illness: Patient is a 67-year-old morbidly obese man, we've a history of diabetes, hypertension, hyperlipidemia, testicular cancer, end-stage renal disease approaching hemodialysis, coronary artery disease, status post CABG 01/24/2018, GI bleed, anemia, gout, normal left ventricular systolic function on 01/24/2018 , diastolic heart failure, now presenting with progressive lower extremity edema and leg pains. The patient feels that he has a gout flare. The patient denies chest pains and shortness of breath. No palpitations. The patient changes his mind. He is agreeable with dialysis, if deemed necessary. - History Source History Provided By: Patient, Family Member, Medical Record Limitations to Obtaining History: No Limitations - Past Medical History [employer]: Yes: TIA, Other (possible restless leg syndrome) Cardio/Vascular: Yes: CAD, CHF, HTN, Hyperlipdemia, Other (Cardiac arrest 2000 carotid artery stenosis) Pulmonary: Yes: Other (PNA after spinal surgery 2000) Gastrointestinal: Yes: Irritable Bowel Disease Renal/: Yes: Renal Inusuff, Other (testicular cancer) Psych: Yes: Depression Musculoskeletal: Yes: Chronic low back pain, Osteoarthritis, Other (sciatica) Rheumatology: Yes: Gout Endocrine: Yes: Diabetes Mellitus - Past Surgical History Past Surgical History: Yes: CABG, Cholecystectomy (1997) - Alcohol/Substance Use Hx Alcohol Use: No History of Substance Use: reports: None - Smoking History Smoking history: Former smoker Have you smoked in the past 12 months: No Aproximately how many cigarettes per day: 0 If you are a former smoker, when did you quit?: 1980 - Social History ADL: Independent History of Recent Travel: No Home Medications - Allergies Allergies/Adverse Reactions: Allergies Allergy/AdvReac Type Severity Reaction Status Date / Time Penicillins Allergy Rash Verified 09/11/18 11:49 sumatriptan [From Imitrex] Allergy Verified 09/11/18 11:49 sumatriptan succinate Allergy Verified 09/11/18 11:49 [From Imitrex] ASPARTANE Allergy Severe HEADACHE Uncoded 09/11/18 11:49 TRYPTOPHAN Allergy Intermediate DIARRHEA/VO Uncoded 09/11/18 11:49 MITING - Home Medications Home Medications: Ambulatory Orders Aspirin [ASA -] 81 mg PO DAILY 09/20/15 Atorvastatin Ca [Lipitor] 80 mg PO HS 09/20/15 Carvedilol 25 mg PO BID 09/20/15 Cholecalciferol (Vitamin D3) [D3-2000] 2,000 unit PO DAILY 09/20/15 Insulin (Levemir) [Levemir Vial] 70 unit SQ BID 09/20/15 Nitroglycerin Sublingual [Nitrostat -] 0.4 mg SL [id number] PRN #30 tab 10/07/16 Exenatide [Byetta] 10 mcg SQ BID 02/14/17 Losartan Potassium [Cozaar -] 50 mg PO BID 02/14/17 oxyCODONE HCL [Roxicodone -] 10 mg PO Q4H PRN 02/14/17 Krill/Om-3/Dha/Epa/Phospho/Ast [Krill Oil 500 mg Softgel] 1 each PO BID Multivit-Min/FA/Lycopen/Lutein [Centrum Silver Men Tablet] 1 each PO DAILY 11/22 Nitroglycerin Patch [Nitro-Dur Patch -] 0.4 mg TD DAILY 11/22/17 Furosemide [Lasix -] 60 mg PO DAILY #60 tablet 01/26/18 Amlodipine Besylate 5 mg PO DAILY 07/27/18 Ferrous Sulfate [Iron] 325 mg PO DAILY 07/27/18 [place]-3 Acid Ethyl Esters [Lovaza -] 1,000 mg PO HS 07/27/18 Hydralazine HCl 25 mg PO BID 09/11/18 Family Disease History - Family Disease History Family Disease History: Diabetes: Mother ( (80s) ), Heart Disease: Father ( (90s)), Other: Sister (alive (69) thyroid disease) Review of Systems - Review of Systems Constitutional: reports: No Symptoms Eyes: reports: No Symptoms HENT: reports: No Symptoms Neck: reports: No Symptoms Cardiovascular: reports: No Symptoms Respiratory: reports: No Symptoms Gastrointestinal: reports: No Symptoms Genitourinary: reports: No Symptoms Breasts: reports: No Symptoms Reported Musculoskeletal: reports: Back Pain, Decreased ROM Integumentary: reports: No Symptoms Neurological: reports: No Symptoms Endocrine: reports: No Symptoms Hematology/Lymphatic: reports: No Symptoms Psychiatric: reports: No Symptoms Vital Signs: Vital Signs Temperature 98.0 F 09/12/18 07:00 Pulse Rate 77 09/12/18 11:39 Respiratory Rate 18 09/12/18 02:19 Blood Pressure 142/51 L 09/12/18 11:39 O2 Sat by Pulse Oximetry (%) 97 09/12/18 11:39 Constitutional: Yes: No Distress, Calm, Obese Eyes: Yes: WNL, Conjunctiva Clear, EOM Intact HENT: Yes: WNL, Atraumatic, Normocephalic Neck: Yes: WNL, Supple, Trachea Midline Respiratory: Yes: WNL, Regular, CTA Bilaterally Gastrointestinal: Yes: WNL, Normal Bowel Sounds, Soft Renal/: Yes: WNL Cardiovascular: Yes: WNL, Regular Rate and Rhythm JVD: No Carotid Bruit: No PMI: Non-Displaced Heart Sounds: Yes: S1, S2 Murmur: Yes: Systolic Murmur, Grade 2 Musculoskeletal: Yes: Back Pain Extremities: Yes: Other (Leg pains) Edema: LLE: 1+, RLE: 1+ Peripheral Pulses WNL: No Peripheral Pulses: 1+ Left Carotid, 1+ Right Carotid, 1+ Left Femoral, 1+ Right Femoral, 1+ Left Popliteal, 1+ Right Popliteal, 1+ Left Doralis Pedis, 1+ Right Dorsalis Pedis Integumentary: Yes: WNL Neurological: Yes: WNL Psychiatric: Yes: WNL - Other Data Labs, Other Data: CBC, BMP 09/12/18 05:35 09/12/18 05:35 INR, PTT INR 1.08 (0.83-1.09) 09/12/18 05:35 Troponin, BNP 09/11/18 09/12/18 14:29 05:35 Troponin I < 0.02 < 0.02 B-Natriuretic Peptide 1227.2 H 1215.4 H Troponin, BNP 09/11/18 09/12/18 14:29 05:35 Troponin I < 0.02 < 0.02 B-Natriuretic Peptide 1227.2 H 1215.4 H Assessment/Plan Patient is a 67-year-old morbidly obese man, we've a history of diabetes, hypertension, hyperlipidemia, testicular cancer, end-stage renal disease approaching hemodialysis, coronary artery disease, status post CABG 01/24/2018, GI bleed, anemia, gout, normal left ventricular systolic function on 01/24/2018 , diastolic heart failure, now presenting with progressive lower extremity edema and leg pains. The patient feels that he has a gout flare. The patient denies chest pains and shortness of breath. No palpitations. The patient changes his mind. He is agreeable with dialysis, if deemed necessary. The patient has been stable from the cardiac standpoint. There is no evidence of ischemia nor acute coronary syndrome. No angina. No CHF. No clinically important arrhythmias documented at this point. Please continue intravenous Lasix as currently. Consider ruling out bilateral lower extremity DVTs. Treat gout as needed/necessary. There is no need for cardiac monitoring. No need for further cardiac workup at this point. The patient is agreeable with hemodialysis, if deemed necessary. Please do not hesitate to call us PRN. Please arrange for an outpatient follow-up visit with after discharge.
--- NOTE | 2018-09-12 13:46 | ECHO ---
Name: RIDGE AVILA Exam:Adult Echocardiogram Study Date: 09/12/2018 08:34 AM Age: 67 yrs Reason For Study: VILLA/CHF Height: 67 in Weight: 250 lb BSA: 2.2 m2 MMode/2D Measurements & Calculations IVSd: 1.4 cm Ao root diam: 2.6 cm LVIDd: 4.3 cm LA dimension: 3.7 cm LVIDs: 2.5 cm LVPWd: 1.3 cm EDV(Teich): 82.3 ml ESV(Teich): 22.8 ml Doppler Measurements & Calculations AI P1/2t: 1837 msec AI max fredrick: 262.0 cm/sec AI max P.5 mmHg AI dec slope: 41.8 cm/sec2 MR max fredrick: 562.5 cm/sec TR max fredrick: 306.1 cm/sec MR max P.6 mmHg TR max P.8 mmHg PI Vmax: 260.6 cm/sec Procedure A two-dimensional transthoracic echocardiogram with color flow and Doppler was performed. Left Ventricle There is moderate concentric left ventricular hypertrophy. The left ventricular ejection fraction is normal. The left ventricular wall motion is normal. Right Ventricle The right ventricle is normal in size and function. Atria Normal left and right atrial size and function. Mitral Valve There is mild mitral valve thickening. There is no mitral valve stenosis. There is mild to moderate m itral regurgitation. Tricuspid Valve There is mild tricuspid valve thickening. There is no tricuspid stenosis. There is mild tricuspid regurgitation. Right ventricular systolic pressure is elevated at 50-60mmHg. Aortic Valve The aortic valve is normal in structure and function. No hemodynamically significant valvular aortic stenosis. Mild aortic regurgitation. Pulmonic Valve The pulmonic valve is not well visualized. There is no pulmonic valvular stenosis. Mild to moderate p ulmonic valvular regurgitation. Great Vessels The aortic root is normal size. Pericardium/Pleura There is no pericardial effusion. Interpretation Summary There is moderate concentric left ventricular hypertrophy. The left ventricular ejection fraction is normal. The left ventricular wall motion is normal. There is mild tricuspid regurgitation. Right ventricular systolic pressure is elevated at 50-60mmHg. Mild aortic regurgitation. There is mild to moderate mitral regurgitation. MD Quang Wells 09/12/2018 01:46 PM
[2018-09-12] MEDS: SENNOSIDES 8.6MG TABLET (FP) PO SCH (23:29)
[2018-09-12] MEDS: ATORVASTATIN CA 40 MG TABLET (FP) PO SCH (23:29)
[2018-09-12] MEDS: INSULIN (LEVEMIR) 100 UNITS/ML UNITS SQ SCH (23:30)
[2018-09-12] MEDS: HYDROCORTISONE ACETATE 25 MG/SUPP.RECT RC SCH (23:30)
[2018-09-12] MEDS: OMEGA-3 ACID ETHYL ESTERS (FATTY-ACIDS) 1 GM CAPSULE (FP) PO SCH (23:31)
[2018-09-12] MEDS ORDERED: PT OWN MED DRAWER 7, Y5N ONE (23:47)
[2018-09-13] MEDS: oxyCODONE HCL 5 MG TABLET PO PRN (04:49)
[2018-09-13] MEDS: FUROSEMIDE 40 MG/4 ML INJECTABLE VIAL IVPUSH SCH ×2 (06:22→15:14)
[2018-09-13] MEDS: INSULIN SLIDING SCALE (NOVOLOG) 1 VIAL SQ SCH ×4 (06:22→21:24)
[2018-09-13] MEDS: oxyCODONE HCL 10 MG SUSTAINED ACTING TABLET PO SCH ×2 (11:03→21:23)
[2018-09-13] MEDS: FERROUS SO4 325 MG TABLET (FP) PO SCH (11:05)
[2018-09-13] MEDS: ASCORBIC ACID 500 MG TABLET (FP) PO SCH (11:05)
[2018-09-13] MEDS: hydrALAZINE HCL 50 MG TABLET (FP) PO SCH ×2 (11:05→21:22)
[2018-09-13] MEDS: CARVEDILOL 25 MG TABLET (FP) PO SCH ×2 (11:05→21:23)
[2018-09-13] MEDS: DOCUSATE SODIUM 100 MG CAPSULE (FP) PO SCH ×2 (11:05→21:22)
[2018-09-13] MEDS: ASPIRIN 81 MG CHEWABLE TABLETS PO SCH (11:06)
[2018-09-13 11:20] LABS: ANION GAP 9 MMOL/L (8-16); BLOOD UREA NITROGEN 85 mg/dL (7-18); CALCIUM 9.4 mg/dL (8.5-10.1); CHLORIDE 103 mmol/L (98-107); CO2 29 mmol/L (21-32); CREATININE 3.6 mg/dL (0.55-1.3); GLUCOSE,RANDOM 177 mg/dL (74-106); POTASSIUM 4.8 mmol/L (3.5-5.1); SODIUM 141 mmol/L (136-145)
[2018-09-13] MEDS ORDERED: PT OWN MED DRAWER 7, Y5N ONE (12:10)
--- NOTE | 2018-09-13 12:22 | EKG ---
Test Reason : Blood Pressure : / mmHG Vent. Rate : 074 BPM Atrial Rate : 074 BPM P-R Int : 196 ms QRS Dur : 116 ms QT Int : 410 ms P-R-T Axes : 057 067 050 degrees QTc Int : 455 ms NORMAL SINUS RHYTHM INCOMPLETE RIGHT BUNDLE BRANCH BLOCK BORDERLINE ECG WHEN COMPARED WITH ECG OF 11-SEP-2018 23:33, NO SIGNIFICANT CHANGE WAS FOUND Confirmed by CRISTHIAN HAYWOOD MD ([id number]) on 09/13/2018 12:22:00 PM Referred By: PATY JACKSON Confirmed By:CRISTHIAN HAYWOOD MD
[2018-09-13 12:59] LABS: BASO % 0.7 % (0-2.0); EOS % 4.7 % (0-4.5); HEMATOCRIT 27.5 % (35.4-49); HEMOGLOBIN 9.3 GM/dL (11.7-16.9); LYMPH % 15.1 % (8-40); MCH 30.5 pg (25.7-33.7); MEAN CELL VOLUME 89.6 fl (80-96); MONO % 10.6 % (3.8-10.2); NEUT % 68.9 % (42.8-82.8); PLATELET COUNT 256 K/MM3 (134-434); RBC 3.07 M/mm3 (4.00-5.60); RDW 15.4 % (11.9-15.9); WHITE BLOOD COUNT 9.5 K/mm3 (4.0-10.0)
--- NOTE | 2018-09-13 13:08 | PN ---
Progress Note, Physician Chief Complaint: Pt sitting in bed in no acute distress. reports had an episode of chest pain before, worsened w/ bending down/movement, resolved now. pt has decided against HD today. denies any chest pain, worsening sob, n/v/d - Current Medication List Current Medications: Active Medications Acetaminophen (Tylenol -) 650 mg PO Q6H PRN PRN Reason: FEVER Ascorbic Acid (Vitamin C -) 500 mg PO DAILY [facility] Last Admin: 09/13/18 11:05 Dose: 500 mg Aspirin (Asa -) 81 mg PO DAILY [facility] Last Admin: 09/13/18 11:06 Dose: 81 mg Atorvastatin Calcium (Lipitor -) 80 mg PO [facility] Last Admin: 09/12/18 23:29 Dose: 80 mg Carvedilol (Coreg -) 25 mg PO BID [facility] Last Admin: 09/13/18 11:05 Dose: 25 mg Docusate Sodium (Colace -) 100 mg PO BID [facility] Last Admin: 09/13/18 11:05 Dose: 100 mg Ferrous Sulfate (Feosol -) 325 mg PO DAILY [facility] Last Admin: 09/13/18 11:05 Dose: 325 mg Furosemide (Lasix Injection -) 40 mg IVPUSH BID@0600,1400 [facility] Last Admin: 09/13/18 06:22 Dose: 40 mg Hydralazine HCl (Apresoline -) 50 mg PO BID [facility] Last Admin: 09/13/18 11:05 Dose: 50 mg Hydrocortisone Acetate (Anusol Hc Suppository -) 25 mg RC [facility] Stop: 09/13/18 22:00 Last Admin: 09/12/18 23:30 Dose: 25 mg Insulin Aspart (Novolog Vial Sliding Scale -) 1 vial SQ [facility]; Protocol Last Admin: 09/13/18 12:04 Dose: 4 units Insulin Detemir (Levemir Vial) 30 units SQ [facility] Last Admin: 09/12/18 23:30 Dose: Not Given Nitroglycerin (Nitrostat -) 0.4 mg SL Q5M PRN PRN Reason: PAIN Pcshp-1-Mjae Ethyl Esters (Lovaza -) 1 gm PO [facility] Last Admin: 09/12/18 23:31 Dose: Not Given Oxycodone HCl (Roxicodone -) 10 mg PO Q4H PRN PRN Reason: PAIN LEVEL 7 - 10 Last Admin: 09/13/18 04:49 Dose: 10 mg Oxycodone HCl (Oxycontin -) 10 mg PO BID [facility] Last Admin: 09/13/18 11:03 Dose: 10 mg Senna (Senna -) 2 tab PO HS [facility] Last Admin: 09/12/18 23:29 Dose: 2 tab - Objective Vital Signs: Vital Signs Temperature 97.6 F 09/13/18 07:04 Pulse Rate 69 09/13/18 07:04 Respiratory Rate 20 09/13/18 07:04 Blood Pressure 142/66 09/13/18 07:04 O2 Sat by Pulse Oximetry (%) 95 09/12/18 17:49 Constitutional: Yes: Well Nourished, No Distress, Calm Cardiovascular: Yes: WNL, Regular Rate and Rhythm Respiratory: Yes: WNL, Regular, CTA Bilaterally. No: Accessory Muscle Use, SOB , Tachypnea, Wheezes Gastrointestinal: Yes: WNL, Normal Bowel Sounds, Soft, Abdomen, Obese. No: Distention, Tenderness Genitourinary: Yes: WNL Edema: Yes Edema: LLE: 2+, RLE: 2+ Neurological: Yes: WNL, Alert, Oriented Psychiatric: Yes: WNL, Alert, Oriented Labs: CBC, BMP 09/13/18 10:25 09/13/18 10:25 INR, PTT INR 1.08 (0.83-1.09) 09/12/18 05:35 Assessment/Plan (1) Acute on chronic kidney failure Assessment/Plan: persists, minimal improvement iv lasix renal diet pt has decided against dialysis upon discussion with pcp, family nephrology following Code(s): N17.9 - ACUTE KIDNEY FAILURE, UNSPECIFIED; N18.9 - CHRONIC KIDNEY DISEASE, UNSPECIFIED Qualifiers: Acute renal failure type: unspecified Chronic kidney disease stage: stage 4 (severe) Qualified Code(s): N17.9 - Acute kidney failure, unspecified; N18.4 - Chronic kidney disease, stage 4 (severe) (2) Hyperkalemia Assessment/Plan: improved Code(s): E87.5 - HYPERKALEMIA (3) Lower extremity edema Assessment/Plan: persists 2/2 worsening renal function as above cardiology consult appreciated Code(s): R60.0 - LOCALIZED EDEMA (4) CAD (coronary artery disease) Assessment/Plan: no acute ACS episode of chest pain this am which resolved, ekg w/out acute changes troponin neg continue asa/statin Code(s): I25.10 - ATHSCL HEART DISEASE OF [place] CORONARY ARTERY W/O ANG PCTRS Qualifiers: [place] vs. 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 insulin use: with superintendent marine oil terminal use 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 complication status: with kidney complications 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 complication detail: with chronic kidney disease Chronic kidney disease stage: stage 4 (severe) Qualified Code(s): E11.22 - Type 2 diabetes mellitus with diabetic chronic kidney disease; N18.4 - Chronic kidney disease, stage 4 (severe); Z79.4 - halfway (current) use of insulin (6) HTN (hypertension) Assessment/Plan: slightly elevated ccb/arb on hold due to le edema/starla bp goal 130/80 hydralazine was increased yesterday monitor for now Code(s): I10 - ESSENTIAL (PRIMARY) HYPERTENSION Qualifiers: Hypertension type: essential hypertension Qualified Code(s): I10 - Essential (primary) hypertension (7) Anemia Assessment/Plan: chronic, stable Code(s): D64.9 - ANEMIA, UNSPECIFIED Qualifiers: Anemia type: due to chronic kidney disease Chronic kidney disease stage: stage 4 (severe) Qualified Code(s): N18.4 - Chronic kidney disease, stage 4 ( severe); D63.1 - Anemia in chronic kidney disease (8) Hyperlipidemia Assessment/Plan: stable continue lipitor/lovaza outpt monitoring Code(s): E78.5 - HYPERLIPIDEMIA, UNSPECIFIED Dispo: home when nephrology cleared
[2018-09-13 13:29] VITALS: BMI 38.0
--- NOTE | 2018-09-13 14:50 | PN ---
Progress Note, Physician History of Present Illness: Pt seen and examined at bedside. He feels that the edema is starting to improve. - Current Medication List Current Medications: Active Medications Acetaminophen (Tylenol -) 650 mg PO Q6H PRN PRN Reason: FEVER Ascorbic Acid (Vitamin C -) 500 mg PO DAILY [facility] Last Admin: 09/13/18 11:05 Dose: 500 mg Aspirin (Asa -) 81 mg PO DAILY [facility] Last Admin: 09/13/18 11:06 Dose: 81 mg Atorvastatin Calcium (Lipitor -) 80 mg PO [facility] Last Admin: 09/12/18 23:29 Dose: 80 mg Carvedilol (Coreg -) 25 mg PO BID [facility] Last Admin: 09/13/18 11:05 Dose: 25 mg Docusate Sodium (Colace -) 100 mg PO BID [facility] Last Admin: 09/13/18 11:05 Dose: 100 mg Ferrous Sulfate (Feosol -) 325 mg PO DAILY [facility] Last Admin: 09/13/18 11:05 Dose: 325 mg Furosemide (Lasix Injection -) 40 mg IVPUSH BID@0600,1400 [facility] Last Admin: 09/13/18 06:22 Dose: 40 mg Hydralazine HCl (Apresoline -) 50 mg PO BID [facility] Last Admin: 09/13/18 11:05 Dose: 50 mg Hydrocortisone Acetate (Anusol Hc Suppository -) 25 mg RC [facility] Stop: 09/13/18 22:00 Last Admin: 09/12/18 23:30 Dose: 25 mg Insulin Aspart (Novolog Vial Sliding Scale -) 1 vial SQ [facility]; Protocol Last Admin: 09/13/18 12:04 Dose: 4 units Insulin Detemir (Levemir Vial) 30 units SQ [facility] Last Admin: 09/12/18 23:30 Dose: Not Given Nitroglycerin (Nitrostat -) 0.4 mg SL Q5M PRN PRN Reason: PAIN Powmt-4-Sfbm Ethyl Esters (Lovaza -) 1 gm PO [facility] Last Admin: 09/12/18 23:31 Dose: Not Given Oxycodone HCl (Roxicodone -) 10 mg PO Q4H PRN PRN Reason: PAIN LEVEL 7 - 10 Last Admin: 09/13/18 04:49 Dose: 10 mg Oxycodone HCl (Oxycontin -) 10 mg PO BID [facility] Last Admin: 09/13/18 11:03 Dose: 10 mg Senna (Senna -) 2 tab PO HS [facility] Last Admin: 09/12/18 23:29 Dose: 2 tab - Objective Vital Signs: Vital Signs Temperature 97.6 F 09/13/18 13:23 Pulse Rate 69 09/13/18 13:23 Respiratory Rate 20 09/13/18 13:23 Blood Pressure 142/66 09/13/18 13:23 O2 Sat by Pulse Oximetry (%) 95 09/12/18 17:49 Constitutional: Yes: Calm Eyes: Yes: Conjunctiva Clear HENT: Yes: Atraumatic Cardiovascular: Yes: S1, S2 Gastrointestinal: Yes: Soft, Abdomen, Obese Genitourinary: Yes: WNL Musculoskeletal: Yes: WNL Edema: Yes Edema: LLE: 2+, RLE: 2+ Neurological: Yes: Oriented Psychiatric: Yes: Oriented Labs: CBC, BMP 09/13/18 10:25 09/13/18 10:25 INR, PTT INR 1.08 (0.83-1.09) 09/12/18 05:35 Problem List - Problems (1) Acute on chronic kidney failure Code(s): N17.9 - ACUTE KIDNEY FAILURE, UNSPECIFIED; N18.9 - CHRONIC KIDNEY DISEASE, UNSPECIFIED Qualifiers: Acute renal failure type: unspecified Chronic kidney disease stage: stage 4 (severe) Qualified Code(s): N17.9 - Acute kidney failure, unspecified; N18.4 - Chronic kidney disease, stage 4 (severe) (2) Edema Code(s): R60.9 - EDEMA, UNSPECIFIED Qualifiers: Edema type: unspecified Qualified Code(s): R60.9 - Edema, unspecified (3) CKD (chronic kidney disease) Code(s): N18.9 - CHRONIC KIDNEY DISEASE, UNSPECIFIED (4) Diabetes Code(s): E11.9 - TYPE 2 DIABETES MELLITUS WITHOUT COMPLICATIONS Qualifiers: 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 type: type 2 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 terminal system operator insulin use: with terminal system operator use 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 complication status: with kidney complications 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 complication detail: with chronic kidney disease Chronic kidney disease stage: stage 4 (severe) Qualified Code(s): E11.22 - Type 2 diabetes mellitus with diabetic chronic kidney disease; N18.4 - Chronic kidney disease, stage 4 (severe); Z79.4 - custodial (current) use of insulin (5) Hyperkalemia Code(s): E87.5 - HYPERKALEMIA Assessment/Plan Current Medications Generic Name Dose Route Start Last Admin Trade Name Freq PRN Reason Stop Dose Admin Acetaminophen 650 mg 09/11/18 20:19 Tylenol - PO Q6H PRN FEVER Ascorbic Acid 500 mg 09/12/18 10:00 09/13/18 11:05 Vitamin C - PO 500 mg DAILY [facility] Administration Aspirin 81 mg 09/12/18 10:00 09/13/18 11:06 Asa - PO 81 mg DAILY [facility] Administration Atorvastatin Calcium 80 mg 09/11/18 22:00 09/12/18 23:29 Lipitor - PO 80 mg HS [facility] Administration Carvedilol 25 mg 09/11/18 22:00 09/13/18 11:05 Coreg - PO 25 mg BID [facility] Administration Docusate Sodium 100 mg 09/11/18 22:00 09/13/18 11:05 Colace - PO 100 mg BID [facility] Administration Ferrous Sulfate 325 mg 09/12/18 10:00 09/13/18 11:05 Feosol - PO 325 mg DAILY [facility] Administration Furosemide 40 mg 09/12/18 06:00 09/13/18 06:22 Lasix Injection - IVPUSH 40 mg BID@0600,1400 [facility] Administration Hydralazine HCl 50 mg 09/12/18 10:00 09/13/18 11:05 Apresoline - PO 50 mg BID [facility] Administration Hydrocortisone Acetate 25 mg 09/12/18 22:00 09/12/18 23:30 Anusol Hc Suppository - RC 09/13/18 22:00 25 mg HS [facility] Administration Insulin Aspart 1 vial 09/11/18 22:00 09/13/18 12:04 Novolog Vial Sliding Scale - SQ 4 units ACHS [facility] Administration Protocol Insulin Detemir 30 units 09/11/18 22:00 09/12/18 23:30 Levemir Vial SQ Not Given HS [facility] Nitroglycerin 0.4 mg 09/11/18 18:57 Nitrostat - SL Q5M PRN PAIN Fqnbv-1-Xvhr Ethyl Esters 1 gm 09/11/18 22:00 09/12/18 23:31 Lovaza - PO Not Given HS [facility] Oxycodone HCl 10 mg 09/11/18 20:01 09/13/18 04:49 Roxicodone - PO 10 mg Q4H PRN Administration PAIN LEVEL 7 - 10 Oxycodone HCl 10 mg 09/12/18 11:15 09/13/18 11:03 Oxycontin - PO 10 mg BID [facility] Administration Senna 2 tab 09/11/18 22:00 09/12/18 23:29 Senna - PO 2 tab HS [facility] Administration Impression 1. VILLA 2. hyperkalemia 3. ckd 4. fluid overload 5. cad 6. dm Plan - cont IV lasix - check daily weights - can switch to lasix 80 mg po twice a day on discharge - monitor renal function - losartan on hold for now, will monitor potassium and likely have in restarted as outpt at lower dose - pt does not want HD therapy in the future - potassium is improved - weight went from 250 to 243 - low potassium diet - daily weights Dr Alatorre
[2018-09-13] MEDS ORDERED: FUROSEMIDE 40 MG/4 ML INJECTABLE VIAL IVPUSH ONE (18:05)
[2018-09-13] MEDS: ATORVASTATIN CA 40 MG TABLET (FP) PO SCH (21:22)
[2018-09-13] MEDS: SENNOSIDES 8.6MG TABLET (FP) PO SCH (21:22)
[2018-09-13] MEDS: HYDROCORTISONE ACETATE 25 MG/SUPP.RECT RC SCH (21:23)
[2018-09-13] MEDS: INSULIN (LEVEMIR) 100 UNITS/ML UNITS SQ SCH (21:23)
[2018-09-13] MEDS: OMEGA-3 ACID ETHYL ESTERS (FATTY-ACIDS) 1 GM CAPSULE (FP) PO SCH (22:04)
[2018-09-14] MEDS: SENNOSIDES 8.6MG TABLET (FP) PO SCH ×2 (03:27→22:16)
[2018-09-14] MEDS: DOCUSATE SODIUM 100 MG CAPSULE (FP) PO SCH ×4 (03:27→22:16)
[2018-09-14] MEDS: oxyCODONE HCL 5 MG TABLET PO PRN ×2 (06:06→17:01)
[2018-09-14] MEDS: INSULIN SLIDING SCALE (NOVOLOG) 1 VIAL SQ SCH ×4 (06:06→22:13)
[2018-09-14] MEDS: FUROSEMIDE 40 MG/4 ML INJECTABLE VIAL IVPUSH SCH ×2 (06:07→13:32)
[2018-09-14 08:09] LABS: BASO % 0.5 % (0-2.0); EOS % 4.2 % (0-4.5); HEMOGLOBIN 9.7 GM/dL (11.7-16.9); LYMPH % 17.7 % (8-40); MCH 31.7 pg (25.7-33.7); MONO % 9.3 % (3.8-10.2); NEUT % 68.3 % (42.8-82.8); PLATELET COUNT 278 K/MM3 (134-434); RBC 3.07 M/mm3 (4.00-5.60); RDW 15.1 % (11.9-15.9); WHITE BLOOD COUNT 10.3 K/mm3 (4.0-10.0)
[2018-09-14 08:35] LABS: ANION GAP 11 MMOL/L (8-16); BLOOD UREA NITROGEN 80 mg/dL (7-18); CALCIUM 9.5 mg/dL (8.5-10.1); CHLORIDE 104 mmol/L (98-107); CO2 26 mmol/L (21-32); CREATININE 3.6 mg/dL (0.55-1.3); GLUCOSE,RANDOM 137 mg/dL (74-106); MAGNESIUM 2.7 mg/dL (1.8-2.4); PHOSPHOROUS 5.4 mg/dL (2.5-4.9); POTASSIUM 4.7 mmol/L (3.5-5.1); SODIUM 141 mmol/L (136-145)
[2018-09-14] MEDS: ASCORBIC ACID 500 MG TABLET (FP) PO SCH (09:17)
[2018-09-14] MEDS: oxyCODONE HCL 10 MG SUSTAINED ACTING TABLET PO SCH ×2 (09:17→22:14)
[2018-09-14] MEDS: hydrALAZINE HCL 50 MG TABLET (FP) PO SCH ×2 (09:17→22:14)
[2018-09-14] MEDS: CARVEDILOL 25 MG TABLET (FP) PO SCH ×2 (09:17→22:14)
[2018-09-14] MEDS: FERROUS SO4 325 MG TABLET (FP) PO SCH (09:17)
[2018-09-14] MEDS: ASPIRIN 81 MG CHEWABLE TABLETS PO SCH (09:19)
[2018-09-14] MEDS ORDERED: INSULIN (NOVOLOG) ASPART 100 UNITS/ML 10ML VIAL ONE (11:12)
--- NOTE | 2018-09-14 11:46 | PN ---
Progress Note, Physician History of Present Illness: Pt seen and examined at bedside. He is awake and alert. He still complains of edema. - Current Medication List Current Medications: Active Medications Acetaminophen (Tylenol -) 650 mg PO Q6H PRN PRN Reason: FEVER Ascorbic Acid (Vitamin C -) 500 mg PO DAILY [facility] Last Admin: 09/14/18 09:17 Dose: 500 mg Aspirin (Asa -) 81 mg PO DAILY [facility] Last Admin: 09/14/18 09:19 Dose: 81 mg Atorvastatin Calcium (Lipitor -) 80 mg PO [facility] Last Admin: 09/13/18 21:22 Dose: 80 mg Carvedilol (Coreg -) 25 mg PO BID [facility] Last Admin: 09/14/18 09:17 Dose: 25 mg Docusate Sodium (Colace -) 100 mg PO BID [facility] Last Admin: 09/14/18 09:41 Dose: Not Given Ferrous Sulfate (Feosol -) 325 mg PO DAILY [facility] Last Admin: 09/14/18 09:17 Dose: 325 mg Furosemide (Lasix Injection -) 40 mg IVPUSH BID@0600,1400 [facility] Last Admin: 09/14/18 06:07 Dose: 40 mg Hydralazine HCl (Apresoline -) 50 mg PO BID [facility] Last Admin: 09/14/18 09:17 Dose: 50 mg Insulin Aspart (Novolog Vial Sliding Scale -) 1 vial SQ [facility]; Protocol Last Admin: 09/14/18 11:13 Dose: 4 units Insulin Detemir (Levemir Vial) 30 units SQ [facility] Last Admin: 09/13/18 21:23 Dose: 30 units Nitroglycerin (Nitrostat -) 0.4 mg SL Q5M PRN PRN Reason: PAIN Last Admin: 09/14/18 01:56 Dose: 0.4 mg Rymqs-6-Hcoj Ethyl Esters (Lovaza -) 1 gm PO [facility] Last Admin: 09/13/18 22:04 Dose: 1 gm Oxycodone HCl (Roxicodone -) 10 mg PO Q4H PRN PRN Reason: PAIN LEVEL 7 - 10 Last Admin: 09/14/18 06:06 Dose: 10 mg Oxycodone HCl (Oxycontin -) 10 mg PO BID [facility] Last Admin: 09/14/18 09:17 Dose: 10 mg Senna (Senna -) 2 tab PO [facility] Last Admin: 09/14/18 03:27 Dose: Not Given - Objective Vital Signs: Vital Signs Temperature 97.6 F 09/14/18 06:57 Pulse Rate 73 09/14/18 06:57 Respiratory Rate 20 09/14/18 06:57 Blood Pressure 158/66 09/14/18 06:57 O2 Sat by Pulse Oximetry (%) 96 09/14/18 09:00 Constitutional: Yes: Calm Eyes: Yes: Conjunctiva Clear HENT: Yes: Atraumatic Cardiovascular: Yes: S1, S2 Respiratory: Yes: CTA Bilaterally Gastrointestinal: Yes: Soft, Abdomen, Obese Musculoskeletal: Yes: WNL Edema: Yes Edema: LLE: 3+, RLE: 3+ Neurological: Yes: Oriented Psychiatric: Yes: Oriented Labs: CBC, BMP 09/14/18 06:00 09/14/18 06:00 INR, PTT INR 1.08 (0.83-1.09) 09/12/18 05:35 Problem List - Problems (1) Acute on chronic kidney failure Code(s): N17.9 - ACUTE KIDNEY FAILURE, UNSPECIFIED; N18.9 - CHRONIC KIDNEY DISEASE, UNSPECIFIED Qualifiers: Acute renal failure type: unspecified Chronic kidney disease stage: stage 4 (severe) Qualified Code(s): N17.9 - Acute kidney failure, unspecified; N18.4 - Chronic kidney disease, stage 4 (severe) (2) Edema Code(s): R60.9 - EDEMA, UNSPECIFIED Qualifiers: Edema type: unspecified Qualified Code(s): R60.9 - Edema, unspecified (3) CKD (chronic kidney disease) Code(s): N18.9 - CHRONIC KIDNEY DISEASE, UNSPECIFIED (4) Diabetes Code(s): E11.9 - TYPE 2 DIABETES MELLITUS WITHOUT COMPLICATIONS Qualifiers: 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 type: type 2 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 buttermaker helper insulin use: with senior living use 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 complication status: with kidney complications 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 complication detail: with chronic kidney disease Chronic kidney disease stage: stage 4 (severe) Qualified Code(s): E11.22 - Type 2 diabetes mellitus with diabetic chronic kidney disease; N18.4 - Chronic kidney disease, stage 4 (severe); Z79.4 - FDC (current) use of insulin (5) Hyperkalemia Code(s): E87.5 - HYPERKALEMIA Assessment/Plan Current Medications Generic Name Dose Route Start Last Admin Trade Name [place] PRN Reason Stop Dose Admin Acetaminophen 650 mg 09/11/18 20:19 Tylenol - PO Q6H PRN FEVER Ascorbic Acid 500 mg 09/12/18 10:00 09/14/18 09:17 Vitamin C - PO 500 mg DAILY [facility] Administration Aspirin 81 mg 09/12/18 10:00 09/14/18 09:19 Asa - PO 81 mg DAILY [facility] Administration Atorvastatin Calcium 80 mg 09/11/18 22:00 09/13/18 21:22 Lipitor - PO 80 mg HS [facility] Administration Carvedilol 25 mg 09/11/18 22:00 09/14/18 09:17 Coreg - PO 25 mg BID [facility] Administration Docusate Sodium 100 mg 09/11/18 22:00 09/14/18 09:41 Colace - PO Not Given BID [facility] Ferrous Sulfate 325 mg 09/12/18 10:00 09/14/18 09:17 Feosol - PO 325 mg DAILY [facility] Administration Furosemide 40 mg 09/12/18 06:00 09/14/18 06:07 Lasix Injection - IVPUSH 40 mg BID@0600,1400 [facility] Administration Hydralazine HCl 50 mg 09/12/18 10:00 09/14/18 09:17 Apresoline - PO 50 mg BID [facility] Administration Insulin Aspart 1 vial 09/11/18 22:00 09/14/18 11:13 Novolog Vial Sliding Scale - SQ 4 units ACHS [facility] Administration Protocol Insulin Detemir 30 units 09/11/18 22:00 09/13/18 21:23 Levemir Vial SQ 30 units HS [facility] Administration Nitroglycerin 0.4 mg 09/11/18 18:57 09/14/18 01:56 Nitrostat - SL 0.4 mg Q5M PRN Administration PAIN Jkzsb-1-Nvvn Ethyl Esters 1 gm 09/11/18 22:00 09/13/18 22:04 Lovaza - PO 1 gm HS [facility] Administration Oxycodone HCl 10 mg 09/11/18 20:01 09/14/18 06:06 Roxicodone - PO 10 mg Q4H PRN Administration PAIN LEVEL 7 - 10 Oxycodone HCl 10 mg 09/12/18 11:15 09/14/18 09:17 Oxycontin - PO 10 mg BID [facility] Administration Senna 2 tab 09/11/18 22:00 09/14/18 03:27 Senna - PO Not Given HS [facility] Impression 1. VILLA 2. hyperkalemia 3. ckd 4. fluid overload 5. cad 6. dm Plan - increase lasix to 60 bid - repeat labs in am - pt does not want any HD therapy - pt is volume overloaded - losartan on hold secondary to hyperkalemia - potassium is improved - weight went from 250 to 241 - low potassium diet - daily weights Dr Alatorre
--- NOTE | 2018-09-14 11:53 | PN ---
Progress Note, Physician Chief Complaint: Pt sitting in bed in no acute distress. feeling a little sob today. denies any chest pain, worsening sob, n/v/d - Current Medication List Current Medications: Active Medications Acetaminophen (Tylenol -) 650 mg PO Q6H PRN PRN Reason: FEVER Ascorbic Acid (Vitamin C -) 500 mg PO DAILY [facility] Last Admin: 09/14/18 09:17 Dose: 500 mg Aspirin (Asa -) 81 mg PO DAILY [facility] Last Admin: 09/14/18 09:19 Dose: 81 mg Atorvastatin Calcium (Lipitor -) 80 mg PO [facility] Last Admin: 09/13/18 21:22 Dose: 80 mg Carvedilol (Coreg -) 25 mg PO BID [facility] Last Admin: 09/14/18 09:17 Dose: 25 mg Docusate Sodium (Colace -) 100 mg PO BID [facility] Last Admin: 09/14/18 09:41 Dose: Not Given Ferrous Sulfate (Feosol -) 325 mg PO DAILY [facility] Last Admin: 09/14/18 09:17 Dose: 325 mg Furosemide (Lasix Injection -) 60 mg IVPUSH BID@0600,1400 [facility] Hydralazine HCl (Apresoline -) 50 mg PO BID [facility] Last Admin: 09/14/18 09:17 Dose: 50 mg Insulin Aspart (Novolog Vial Sliding Scale -) 1 vial SQ [facility]; Protocol Last Admin: 09/14/18 11:13 Dose: 4 units Insulin Detemir (Levemir Vial) 30 units SQ [facility] Last Admin: 09/13/18 21:23 Dose: 30 units Nitroglycerin (Nitrostat -) 0.4 mg SL Q5M PRN PRN Reason: PAIN Last Admin: 09/14/18 01:56 Dose: 0.4 mg Dqijm-6-Ycwe Ethyl Esters (Lovaza -) 1 gm PO [facility] Last Admin: 09/13/18 22:04 Dose: 1 gm Oxycodone HCl (Roxicodone -) 10 mg PO Q4H PRN PRN Reason: PAIN LEVEL 7 - 10 Last Admin: 09/14/18 06:06 Dose: 10 mg Oxycodone HCl (Oxycontin -) 10 mg PO BID [facility] Last Admin: 09/14/18 09:17 Dose: 10 mg Senna (Senna -) 2 tab PO [facility] Last Admin: 09/14/18 03:27 Dose: Not Given - Objective Vital Signs: Vital Signs Temperature 97.6 F 09/14/18 06:57 Pulse Rate 73 09/14/18 06:57 Respiratory Rate 20 09/14/18 06:57 Blood Pressure 158/66 09/14/18 06:57 O2 Sat by Pulse Oximetry (%) 96 09/14/18 09:00 Constitutional: Yes: Well Nourished, No Distress, Calm Cardiovascular: Yes: Regular Rate and Rhythm Respiratory: Yes: Regular, CTA Bilaterally, Cough, Diminished, SOB. No: Accessory Muscle Use, Tachypnea, Wheezes Gastrointestinal: Yes: WNL, Normal Bowel Sounds, Soft, Abdomen, Obese. No: Distention, Tenderness Genitourinary: Yes: WNL Edema: Yes Edema: LLE: 2+, RLE: 2+ Neurological: Yes: WNL, Alert, Oriented Psychiatric: Yes: WNL, Alert, Oriented Labs: CBC, BMP 09/14/18 06:00 09/14/18 06:00 INR, PTT INR 1.08 (0.83-1.09) 09/12/18 05:35 Assessment/Plan (1) Acute on chronic kidney failure Assessment/Plan: persists, minimal improvement +mild sob today iv lasix increased renal diet pt has decided against dialysis upon discussion with pcp, family nephrology following Code(s): N17.9 - ACUTE KIDNEY FAILURE, UNSPECIFIED; N18.9 - CHRONIC KIDNEY DISEASE, UNSPECIFIED Qualifiers: Acute renal failure type: unspecified Chronic kidney disease stage: stage 4 (severe) Qualified Code(s): N17.9 - Acute kidney failure, unspecified; N18.4 - Chronic kidney disease, stage 4 (severe) (2) Hyperkalemia Assessment/Plan: improved Code(s): E87.5 - HYPERKALEMIA (3) Lower extremity edema Assessment/Plan: persists 2/2 worsening renal function cardiology consult appreciated Code(s): R60.0 - LOCALIZED EDEMA (4) CAD (coronary artery disease) Assessment/Plan: no acute ACS continue asa/statin Code(s): I25.10 - ATHSCL HEART DISEASE OF [place] CORONARY ARTERY W/O ANG PCTRS Qualifiers: [place] vs. transplanted heart: [place] heart (5) Diabetes Assessment/Plan: HgA1c 8.2 BGM, Insulin sliding scale levemir Code(s): E11.9 - TYPE 2 DIABETES MELLITUS WITHOUT COMPLICATIONS Qualifiers: 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 type: type 2 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 jail insulin use: with jail use 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 complication status: with kidney complications 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 complication detail: with chronic kidney disease Chronic kidney disease stage: stage 4 (severe) Qualified Code(s): E11.22 - Type 2 diabetes mellitus with diabetic chronic kidney disease; N18.4 - Chronic kidney disease, stage 4 (severe); Z79.4 - terminal gauger supervisor (current) use of insulin (6) HTN (hypertension) Assessment/Plan: improving ccb/arb on hold due to le edema/starla bp goal 130/80 hydralazine monitor for now Code(s): I10 - ESSENTIAL (PRIMARY) HYPERTENSION Qualifiers: Hypertension type: essential hypertension Qualified Code(s): I10 - Essential (primary) hypertension (7) Anemia Assessment/Plan: chronic, stable Code(s): D64.9 - ANEMIA, UNSPECIFIED Qualifiers: Anemia type: due to chronic kidney disease Chronic kidney disease stage: stage 4 (severe) Qualified Code(s): N18.4 - Chronic kidney disease, stage 4 ( severe); D63.1 - Anemia in chronic kidney disease (8) Hyperlipidemia Assessment/Plan: stable continue lipitor/lovaza outpt monitoring Code(s): E78.5 - HYPERLIPIDEMIA, UNSPECIFIED Dispo: home when nephrology cleared
--- NOTE | 2018-09-14 19:05 | HOSP ---
Subjective - Review of Symptoms Events since last encounter: inbound call center representative commercial internship paged regarding patient experiencing chest pain. Upon presentation, patient endorses feeling like he was "punched in the chest". He states this pain is different than the chest pain he had in past with myocardial infract. States pain is not exacerbated with breathing. He endorses the pain is improving. Vital signs 142/70 HR 76 RR 16 O2 96% room air Exam General: Patient is alert, oriented, in no acute distress Pulmonary: lungs clear to auscultation b/l Cardiac: +S1, S2 auscultated without murmur, rub, or gallops Chest: Chest pain reproducible upon palpation at left upper chest. Abdomen: Obese, soft nontender to palpation Extremities: 2+ pitting edema b/l Assessment, Plan Atypical chest pain likely secondary to musculoskeletal etiology as the same pain is reproducible upon palpation. EKG unchanged from prior study upon admission Tylenol 650mg PO Monitor for changes in vital signs, worsening symptoms Call placed to Dr. Monaco Physical Examination Vital Signs: Vital Signs Temperature 98.2 F 09/14/18 10:00 Pulse Rate 76 09/14/18 18:12 Respiratory Rate 20 09/14/18 10:00 Blood Pressure 142/70 09/14/18 18:12 O2 Sat by Pulse Oximetry (%) 96 09/14/18 09:00 Labs: CBC, BMP 09/14/18 06:00 09/14/18 06:00 Visit type - Emergency Visit Emergency Visit: Yes ED Registration Date: 09/11/18 Care time: The patient presented to the Emergency Department on the above date and was hospitalized for further evaluation of their emergent condition. - New Patient This patient is new to me today: Yes Date on this admission: 09/15/18 - Critical Care Critical Care patient: No
[2018-09-14] MEDS ORDERED: PT OWN MED DRAWER 7, Y5N ONE (21:46)
[2018-09-14] MEDS: INSULIN (LEVEMIR) 100 UNITS/ML UNITS SQ SCH (22:14)
[2018-09-14] MEDS: OMEGA-3 ACID ETHYL ESTERS (FATTY-ACIDS) 1 GM CAPSULE (FP) PO SCH (22:14)
[2018-09-14] MEDS: ATORVASTATIN CA 40 MG TABLET (FP) PO SCH (22:14)
[2018-09-15] MEDS: oxyCODONE HCL 5 MG TABLET PO PRN ×2 (03:32→08:59)
[2018-09-15] MEDS: FUROSEMIDE 40 MG/4 ML INJECTABLE VIAL IVPUSH SCH ×2 (05:51→13:41)
[2018-09-15] MEDS: INSULIN SLIDING SCALE (NOVOLOG) 1 VIAL SQ SCH ×3 (06:00→16:36)
[2018-09-15 06:43] VITALS: TEMP 98.2
[2018-09-15 08:28] LABS: ALBUMIN 3.7 g/dl (3.4-5.0); ALK PHOS 112 U/L (45-117); ANION GAP 9 MMOL/L (8-16); BILIRUBIN,TOTAL 0.5 mg/dL (0.2-1); BLOOD UREA NITROGEN 79 mg/dL (7-18); CALCIUM 9.1 mg/dL (8.5-10.1); CHLORIDE 103 mmol/L (98-107); CO2 29 mmol/L (21-32); CREATININE 3.7 mg/dL (0.55-1.3); GLUCOSE,RANDOM 155 mg/dL (74-106); MAGNESIUM 2.6 mg/dL (1.8-2.4); PHOSPHOROUS 5.3 mg/dL (2.5-4.9); POTASSIUM 4.7 mmol/L (3.5-5.1); SGOT/AST 10 U/L (15-37); SGPT/ALT 18 U/L (13-61); SODIUM 141 mmol/L (136-145); TOT PROT 7.4 g/dl (6.4-8.2)
[2018-09-15] MEDS ORDERED: PT OWN MED DRAWER 7, Y5N ONE (09:37)
[2018-09-15] MEDS: hydrALAZINE HCL 50 MG TABLET (FP) PO SCH (09:38)
[2018-09-15] MEDS: ASPIRIN 81 MG CHEWABLE TABLETS PO SCH (09:38)
[2018-09-15] MEDS: DOCUSATE SODIUM 100 MG CAPSULE (FP) PO SCH (09:39)
[2018-09-15] MEDS: CARVEDILOL 25 MG TABLET (FP) PO SCH (09:40)
[2018-09-15] MEDS: oxyCODONE HCL 10 MG SUSTAINED ACTING TABLET PO SCH (09:40)
[2018-09-15] MEDS: FERROUS SO4 325 MG TABLET (FP) PO SCH (09:40)
[2018-09-15] MEDS: ASCORBIC ACID 500 MG TABLET (FP) PO SCH (09:42)
--- NOTE | 2018-09-15 13:11 | EKG ---
Test Reason : Blood Pressure : / mmHG Vent. Rate : 065 BPM Atrial Rate : 065 BPM P-R Int : 212 ms QRS Dur : 120 ms QT Int : 436 ms P-R-T Axes : 055 046 041 degrees QTc Int : 453 ms SINUS RHYTHM WITH 1ST DEGREE A-V BLOCK NON-SPECIFIC INTRA-VENTRICULAR CONDUCTION DELAY WHEN COMPARED WITH ECG OF 13-SEP-2018 11:34, NO SIGNIFICANT CHANGE WAS FOUND Confirmed by ANDREA GORDON MD ([id number]) on 09/15/2018 1:11:43 PM Referred By: Confirmed By:ANDREA GORDON MD
--- NOTE | 2018-09-15 13:49 | PN ---
Progress Note (short form) - Note Progress Note: RENAL pt is awake and alert c/o pain everywhere. Says he has herniated disc in cervical area and lumbar area. His edema of his lower extremities has not improved despite diuretics and leg elevation. Has had trouble since before childbirth since his mother had trouble with his and because of this does not want to even consider dialysis at all. Last Vital Signs Temp Pulse Resp BP Pulse Ox 98.2 F 73 20 148/67 96 09/15/18 08:40 09/15/18 08:40 09/15/18 08:40 09/15/18 08:40 09/14/18 23:33 lungs clear cvs s1s2 rr abd soft ext +edema neuro a+ox3 CBC, BMP 09/14/18 06:00 09/15/18 07:00 Current Medications Generic Name Dose Route Start Last Admin Trade Name Freq PRN Reason Stop Dose Admin Acetaminophen 650 mg 09/11/18 20:19 09/15/18 03:33 Tylenol - PO 650 mg Q6H PRN Administration FEVER Ascorbic Acid 500 mg 09/12/18 10:00 09/15/18 09:42 Vitamin C - PO 500 mg DAILY CHAPINCITO Administration Aspirin 81 mg 09/12/18 10:00 09/15/18 09:38 Asa - PO 81 mg DAILY CHAPINCITO Administration Atorvastatin Calcium 80 mg 09/11/18 22:00 09/14/18 22:14 Lipitor - PO 80 mg HS CHAPINCITO Administration Carvedilol 25 mg 09/11/18 22:00 09/15/18 09:40 Coreg - PO 25 mg BID CHAPINCITO Administration Docusate Sodium 100 mg 09/11/18 22:00 09/15/18 09:39 Colace - PO Not Given BID CHAPINCITO Ferrous Sulfate 325 mg 09/12/18 10:00 09/15/18 09:40 Feosol - PO 325 mg DAILY CHAPINCITO Administration Furosemide 60 mg 09/14/18 14:00 09/15/18 13:41 Lasix Injection - IVPUSH 60 mg BID@0600,1400 CHAPINCITO Administration Hydralazine HCl 50 mg 09/12/18 10:00 09/15/18 09:38 Apresoline - PO 50 mg BID CHAPINCITO Administration Insulin Aspart 1 vial 09/11/18 22:00 09/15/18 11:32 Novolog Vial Sliding Scale - SQ 4 units ACHS CHAPINCITO Administration Protocol Insulin Detemir 30 units 09/11/18 22:00 09/14/18 22:14 Levemir Vial SQ 30 units HS CHAPINCITO Administration Nitroglycerin 0.4 mg 09/11/18 18:57 09/14/18 01:56 Nitrostat - SL 0.4 mg Q5M PRN Administration PAIN Zofkc-2-Ahcr Ethyl Esters 1 gm 09/11/18 22:00 09/14/18 22:14 Lovaza - PO 1 gm HS CHAPINCITO Administration Oxycodone HCl 10 mg 09/11/18 20:01 09/15/18 08:59 Roxicodone - PO 10 mg Q4H PRN Administration PAIN LEVEL 7 - 10 Oxycodone HCl 10 mg 09/12/18 11:15 09/15/18 09:40 Oxycontin - PO 10 mg BID CHAPINCITO Administration Senna 2 tab 09/11/18 22:00 09/14/18 22:16 Senna - PO Not Given HS CHAPINCITO Impression 1. VILLA 2. hyperkalemia 3. ckd 4. fluid overload 5. cad 6. dm Plan continue lasix bladder scan, note pt could not void for sonogram avoid nsaidskeep legs elevated MV
[2018-09-15 15:45] VITALS: BP 148/54; PULSE 74
--- NOTE | 2018-09-15 16:56 | DS ---
Physical Examination Vital Signs: Vital Signs Temperature 36.8 C 09/15/18 08:40 Pulse Rate 74 09/15/18 13:35 Respiratory Rate 20 09/15/18 08:40 Blood Pressure 148/54 L 09/15/18 13:35 O2 Sat by Pulse Oximetry (%) 96 09/14/18 23:33 Constitutional: Yes: No Distress, Calm, Obese Cardiovascular: Yes: Regular Rate and Rhythm. No: Gallop, Murmur, Rub Respiratory: Yes: Regular, CTA Bilaterally. No: Rales, Rhonchi, Wheezes Gastrointestinal: Yes: Normal Bowel Sounds, Soft. No: Distention, Tenderness Extremities: Yes: WNL Edema: No Labs: CBC, BMP 09/14/18 06:00 09/15/18 07:00 Discharge Summary Reason For Visit: NEPHROTIC SYNDROME/EDEMA/ACUTE RNEAL Current Active Problems Acute on chronic kidney failure (Acute) Edema (Acute) Edema extremities (Acute) Hyperkalemia (Acute) Lower back pain (Acute) Lower extremity edema (Acute) Nephrotic syndrome (Acute) Prophylactic measure (Acute) Hospital Course: (1) Acute on chronic kidney failure Code(s): N17.9 - ACUTE KIDNEY FAILURE, UNSPECIFIED; N18.9 - CHRONIC KIDNEY DISEASE, UNSPECIFIED Qualifiers: Acute renal failure type: unspecified Chronic kidney disease stage: stage 4 (severe) Qualified Code(s): N17.9 - Acute kidney failure, unspecified; N18.4 - Chronic kidney disease, stage 4 (severe) (2) Hyperkalemia Code(s): E87.5 - HYPERKALEMIA (3) Lower extremity edema Code(s): R60.0 - LOCALIZED EDEMA (4) CAD (coronary artery disease) Code(s): I25.10 - ATHSCL HEART DISEASE OF [place] CORONARY ARTERY W/O ANG PCTRS Qualifiers: [place] vs. transplanted heart: [place] heart (5) Diabetes Code(s): E11.9 - TYPE 2 DIABETES MELLITUS WITHOUT COMPLICATIONS Qualifiers: 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 type: type 2 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 detention insulin use: with automated access systems technician use 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 complication status: with kidney complications 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 complication detail: with chronic kidney disease Chronic kidney disease stage: stage 4 (severe) Qualified Code(s): E11.22 - Type 2 diabetes mellitus with diabetic chronic kidney disease; N18.4 - Chronic kidney disease, stage 4 (severe); Z79.4 - shelter (current) use of insulin (6) HTN (hypertension) Code(s): I10 - ESSENTIAL (PRIMARY) HYPERTENSION Qualifiers: Hypertension type: essential hypertension Qualified Code(s): I10 - Essential (primary) hypertension (7) Anemia Code(s): D64.9 - ANEMIA, UNSPECIFIED Qualifiers: Anemia type: due to chronic kidney disease Chronic kidney disease stage: stage 4 (severe) Qualified Code(s): N18.4 - Chronic kidney disease, stage 4 ( severe); D63.1 - Anemia in chronic kidney disease (8) Hyperlipidemia Code(s): E78.5 - HYPERLIPIDEMIA, UNSPECIFIED Mr Carolina is a very pleasant 67 year old male who comes in with shortness of breath and found to have fluid overload, hyperkalemia, and worsening renal function. He was admitted to the hospital and originally HD was discussed, which he declined. His potassium was managed medically and it normalized. It was secondary to drinking a large amount of bernal juice prior to presentation to prevent a gout flare. He was seen by nephrology and aggressively diuresed. He lost a significant amount of weight while here with diuresis and fluid restriction, he lost 6kg on this regimen. His shortness of breath resolved and while he still has significant lower extremity edema, it is improved and at his baseline. Today he was requesting to leave since he feels he is at baseline. He is safe for discharge home. He is recommended to get a PCP as he needs close management of his medical problems. 40 minutes spent in preparation of this discharge Condition: Fair - Instructions Diet, Activity, Other Instructions: resume previous diet and activity Referrals: Malcolm Paulino MD [Primary Care Provider] - German Kurtz MD [Staff Physician] - Disposition: VNS/HOME HEALTH CARE - Home Medications Comprehensive Discharge Medication List: Ambulatory Orders Aspirin [ASA -] 81 mg PO DAILY 09/20/15 Atorvastatin Ca [Lipitor] 80 mg PO HS 09/20/15 Carvedilol 25 mg PO BID 09/20/15 Cholecalciferol (Vitamin D3) [D3-2000] 2,000 unit PO DAILY 09/20/15 Insulin (Levemir) [Levemir Vial] 70 unit SQ BID 09/20/15 Nitroglycerin Sublingual [Nitrostat -] 0.4 mg SL [id number] PRN #30 tab 10/07/16 Exenatide [Byetta] 10 mcg SQ BID 02/14/17 oxyCODONE HCL [Roxicodone -] 10 mg PO Q4H PRN 02/14/17 Krill/Om-3/Dha/Epa/Phospho/Ast [Krill Oil 500 mg Softgel] 1 each PO BID Multivit-Min/FA/Lycopen/Lutein [Centrum Silver Men Tablet] 1 each PO DAILY 11/22 Nitroglycerin Patch [Nitro-Dur Patch -] 0.4 mg TD DAILY 11/22/17 Furosemide [Lasix -] 60 mg PO DAILY #60 tablet 01/26/18 Ferrous Sulfate [Iron] 325 mg PO DAILY 07/27/18 [place]-3 Acid Ethyl Esters [Lovaza -] 1,000 mg PO HS 07/27/18 Ascorbic Acid [Vitamin C -] 500 mg PO DAILY tablet 09/15/18 hydrALAZINE HCL [Apresoline -] 50 mg PO BID #60 tablet 09/15/18
== END 2018-09-15 17:23 | disposition home health service (06) | DRG 684 ==
LOC: JER 11:44 → JERFT 11:44 → JERBED 16:34 → J8W 09-12 20:26
PROVIDERS: ADMIT Internal Medicine; ATTEND Internal Medicine
DX: N17.9 Acute kidney failure, unspecified (principal); E87.5 Hyperkalemia; R60.0 Localized edema; I12.9 Hypertensive chronic kidney disease with stage 1 through stage 4 chronic kidney disease, or unspecified chronic kidney disease; N18.4 Chronic kidney disease, stage 4 (severe); E11.22 Type 2 diabetes mellitus with diabetic chronic kidney disease; I25.10 Atherosclerotic heart disease of native coronary artery without angina pectoris; D63.1 Anemia in chronic kidney disease; E78.5 Hyperlipidemia, unspecified; E87.70 Fluid overload, unspecified; R07.89 Other chest pain; E66.9 Obesity, unspecified; Z68.37 Body mass index [BMI] 37.0-37.9, adult; M54.5 Low back pain; Z95.1 Presence of aortocoronary bypass graft; E11.21 Type 2 diabetes mellitus with diabetic nephropathy
CPT/HCPCS: 36415; 71046-TC-FY; 76775-TC; 76856-TC; 80048; 80053; 80061; 81003; 81015; 82550; 82553; 82962; 83036; 83721; 83735; 83880; 84100; 84484; 85025; 85379; 85610; 85730; 93005; 93010; 93306-TC; 93970-TC; 99285-25

== ENCOUNTER 2018-09-17 21:49 | Inpatient (IN) | payer BC, OTHER ==
[2018-09-17] MEDS ORDERED: VANCOMYCIN 1,000 MG in DEXTROSE 5%-WATER - 250 ML IVPB ONE (22:29)
[2018-09-17] MEDS ORDERED: SODIUM CHLORIDE 1,000 ML IV SCH (22:30)
[2018-09-17] MEDS ORDERED: ACETAMINOPHEN 1000 MG/100 ML VIAL (NON FORMULARY) IVPB ONE (22:30)
[2018-09-17] MEDS ORDERED: VANCOMYCIN 1 GRAM (PRE-DOCKED) 1,000 MG/250 ML BAG IVPB ONE (22:33)
[2018-09-17] MEDS ORDERED: ACETAMINOPHEN INJECTION 100 ML IVPB ONE (22:33)
[2018-09-17] MEDS ORDERED: MEROPENEM 500 MG in DEXTROSE 5%-WATER 100 ML IVPB ONE (22:42)
--- NOTE | 2018-09-17 22:59 | PDOC ---
History of Present Illness - General Chief Complaint: Shortness of Breath Stated Complaint: pneumonia Time Seen by Provider: 09/17/18 22:03 History Source: Patient Exam Limitations: No Limitations - History of Present Illness Initial Comments: 09/17/18 22:51 The patient is a 67M with a PMH of DM2, CAD (s/p 4V CABG 2016 at [facility]), diastolic CHF, CKD (baseline cr 2.0), TIA, HTN, internal hemorrhoids who presents to the ER with complaints of a cough and fever. The patient states that he's had a productive cough x 2 days without CP. He does admit to SOB. Per his at bedside, she states that he developed fevers tonight and became altered and was "mumbling to himself". The patient admits to fever, cough, SOB, but denies CP. Per the , the patient has also been complaining of lightheadedness since his discharge from our facility 2 days ago. Past History - Past Medical History Allergies/Adverse Reactions: Allergies Allergy/AdvReac Type Severity Reaction Status Date / Time Penicillins Allergy Rash Verified 09/17/18 22:10 sumatriptan [From Imitrex] Allergy Verified 09/17/18 22:10 sumatriptan succinate Allergy Verified 09/17/18 22:10 [From Imitrex] ASPARTANE Allergy Severe HEADACHE Uncoded 09/17/18 22:10 TRYPTOPHAN Allergy Intermediate DIARRHEA/VO Uncoded 09/17/18 22:10 MITING Home Medications: Ambulatory Orders Aspirin [ASA -] 81 mg PO DAILY 09/20/15 Atorvastatin Ca [Lipitor] 80 mg PO HS 09/20/15 Carvedilol 25 mg PO BID 09/20/15 Cholecalciferol (Vitamin D3) [D3-2000] 2,000 unit PO DAILY 09/20/15 Insulin (Levemir) [Levemir Vial] 70 unit SQ BID 09/20/15 Nitroglycerin Sublingual [Nitrostat -] 0.4 mg SL [id number] PRN #30 tab 10/07/16 Exenatide [Byetta] 10 mcg SQ BID 02/14/17 oxyCODONE HCL [Roxicodone -] 10 mg PO Q4H PRN 02/14/17 Krill/Om-3/Dha/Epa/Phospho/Ast [Krill Oil 500 mg Softgel] 1 each PO BID Multivit-Min/FA/Lycopen/Lutein [Centrum Silver Men Tablet] 1 each PO DAILY 11/22 Nitroglycerin Patch [Nitro-Dur Patch -] 0.4 mg TD DAILY 11/22/17 Furosemide [Lasix -] 60 mg PO DAILY #60 tablet 01/26/18 Ferrous Sulfate [Iron] 325 mg PO DAILY 07/27/18 [place]-3 Acid Ethyl Esters [Lovaza -] 1,000 mg PO HS 07/27/18 Ascorbic Acid [Vitamin C -] 500 mg PO DAILY tablet 09/15/18 hydrALAZINE HCL [Apresoline -] 50 mg PO BID #60 tablet 09/15/18 Anemia: No Asthma: No Cancer: Yes (TESTICULAR ca with lymph node dissection) Cardiac Disorders: Yes (MO 2014) CVA: Yes (TIA 05/2011) COPD: No CHF: No Dementia: No Diabetes: Yes GI Disorders: Yes (GASTRITIS, SPASTIC COLON, GERD; COLON POLYPS) Disorders: Yes (kidney failure) HTN: Yes Hypercholesterolemia: Yes Kidney Stones: Yes Liver Disease: No Seizures: No Thyroid Disease: No - Surgical History Appendectomy: No Cardiac Surgery: Yes (quad bypass 2014) Cholecystectomy: Yes Lung Surgery: No Neurologic Surgery: Yes (HERNIATED DISC; BRAIN SURGERY INFANT) Orthopedic Surgery: Yes (KNEE ARTHROSCOPY R/L) - Immunization History Immunization Up to Date: Yes - Suicide/Smoking/Psychosocial Hx Smoking Status: No Smoking History: Never smoked Have you smoked in the past 12 months: No Number of Cigarettes Smoked Daily: 0 If you are a former smoker, when did you quit?: 1981 Cigars Per Day: 0 Information on smoking cessation initiated: No Hx Alcohol Use: No Drug/Substance Use Hx: No Substance Use Type: None Hx Substance Use Treatment: No Review of Systems - Review of Systems Able to Perform ROS?: Yes Comments:: 09/17/18 23:02 GENERAL/CONSTITUTIONAL: Positive for fever. No chills. No weakness. HEAD, EYES, EARS, NOSE AND THROAT: No change in vision. No ear pain or discharge. No sore throat. CARDIOVASCULAR: No chest pain, palpitations, or lightheadedness. RESPIRATORY: Positive for cough and SOB. No wheezing or hemoptysis. GASTROINTESTINAL: No nausea, vomiting, diarrhea, constipation, or abdominal pain. GENITOURINARY: No dysuria, frequency, hematuria, or change in urination. MUSCULOSKELETAL: Positive for chronic back pain. No joint or muscle swelling or pain. No neck pain. SKIN: No rash or lesions. NEUROLOGIC: No headache, numbness, tingling, focal weakness, loss of consciousness, or change in strength/sensation. Is the patient limited [place] proficient: No *Physical Exam - Vital Signs Last Vital Signs Temp Pulse Resp BP Pulse Ox 100.7 F H 89 22 H 141/78 92 L 09/17/18 21:49 09/17/18 21:49 09/17/18 21:49 09/17/18 21:49 09/17/18 21:49 - Physical Exam Comments: 09/17/18 23:04 GENERAL: Well developed, well nourished. Awake and alert. No acute distress. HEENT: Normocephalic, atraumatic. Hearing grossly normal. Moist mucous membranes. PERRLA, EOMI. No conjunctival pallor. NECK: Supple. Full ROM. CARDIOVASCULAR: Regular rate and rhythm. No murmurs, rubs, or gallops. PULMONARY: In mild respiratory distress. LLL coarse breath sounds. ABDOMINAL: Soft. Non-tender. Non-distended. LLQ induration, chronic. No rebound or guarding. MUSCULOSKELETAL: Normal range of motion at all joints. No bony deformities or tenderness. EXTREMITIES: No cyanosis. No clubbing. 3+ pitting edema in b/l LE. No calf tenderness or swelling. SKIN: Warm and dry. Normal capillary refill. No rashes. No jaundice. NEUROLOGICAL: Alert, awake, appropriate. Cranial nerves 2-12 intact. Normal speech. Gait is normal without ataxia. PSYCHIATRIC: Cooperative. Good eye contact. Appropriate mood and affect. Moderate Sedation - Procedure Monitoring Vital Signs: Procedure Monitoring Vital Signs Temperature 100.7 F H 09/17/18 21:49 Pulse Rate 89 09/17/18 21:49 Respiratory Rate 22 H 09/17/18 21:49 Blood Pressure 141/78 09/17/18 21:49 O2 Sat by Pulse Oximetry (%) 92 L 09/17/18 21:49 ED Treatment Course - LABORATORY CBC & Chemistry Diagram: 09/17/18 22:57 09/17/18 22:57 - RADIOLOGY Radiology Studies Ordered: Category Date Time Status CHEST X-RAY PORTABLE* [RAD] Stat Radiology 09/17/18 22:10 Ordered - Medications Given in the ED: ED Medications Discontinued Medications Generic Name Dose Route Start Last Admin Trade Name Subha PRN Reason Stop Dose Admin Acetaminophen 1,000 mg 09/17/18 22:30 09/17/18 22:41 Ofirmev Injection - IVPB 09/17/18 22:31 1,000 mg ONCE ONE Administration Medical Decision Making - Medical Decision Making 09/17/18 23:06 The patient is a 67M with an extensive PMH, recently discharged from our facility for VILLA, who presents with acute onset fever with cough concerning for HCAP. Septic protocol is being followed as pt was hypoxic (88's) and febrile. Pending labs and imaging. Giving broad spectrum abx. Holding on fluid bolus. 09/17/18 23:11 Pt has DNR wristband and has verbally stated that he does not want to be intubated. 09/17/18 23:13 WBC of 18.7 up from 10.5 3 days ago. Also notable for Hgb drop of 1.5 points from 3 days ago to 8.2. Pt cannot mobilize for rectal exam. 09/17/18 23:59 I have endorsed the patient to Dr. Carl for admission. *DC/Admit/Observation/Transfer Diagnosis at time of Disposition: Pneumonia Qualifiers: Pneumonia type: due to unspecified organism Laterality: left Lung location: lower lobe of lung Qualified Code(s): J18.1 - Lobar pneumonia, unspecified organism - Discharge Dispostion Condition at time of disposition: Guarded Decision to Admit order: Yes - Referrals - Patient Instructions - Post Discharge Activity
[2018-09-17] MEDS ORDERED: oxyCODONE HCL 5 MG TABLET PO ONE (23:01)
[2018-09-17 23:08] LABS: VENOUS PC02 53.6 mmHg (38-52); VENOUS PH 7.34 (7.32-7.42); VENOUS PO2 46.9 mmHg (28-48)
[2018-09-17 23:09] LABS: BASO % 0.5 % (0-2.0); EOS % 1.9 % (0-4.5); HEMATOCRIT 24.2 % (35.4-49); HEMOGLOBIN 8.2 GM/dL (11.7-16.9); LYMPH % 6.8 % (8-40); MCH 29.7 pg (25.7-33.7); MCHC 33.7 g/dl (32.0-35.9); MEAN CELL VOLUME 88.1 fl (80-96); MEAN PLT VOLUME 8.1 fl (7.5-11.1); MONO % 7.2 % (3.8-10.2); NEUT % 83.6 % (42.8-82.8); PLATELET COUNT 211 K/MM3 (134-434); RBC 2.75 M/mm3 (4.00-5.60); RDW 15.3 % (11.9-15.9); WHITE BLOOD COUNT 18.7 K/mm3 (4.0-10.0)
--- NOTE | 2018-09-17 23:19 | PDOC ---
Attending Attestation - HPI HPI: 09/17/18 23:21 The patient is a 67 year old male with a significant past medical history of DM2 , CAD (s/p 4V CABG 2016 at [facility]), diastolic CHF, CKD , TIA, HTN, internal hemorrhoids, who presents to the emergency department today complaining of a bad cough. His cough has been progressively getting worse and comes into the ED with a subjective fever and altered mental status. Denies dysuria, frequency, urgency and hematuria. Allergies: Penicillins, sumatriptan, aspartane, tryptophan Social Hx: Denies smoking, drinking, or other substance usage. PCP: German Kurtz Family Support Coordinator: Mohit Olivas - Physicial Exam PE: 09/17/18 23:45 GENERAL: (+)febrile. No apparent distress. HEENT: Normocephalic, atraumatic. PERRL, EOM intact. CARDIOVASCULAR: (+) Tachycardic. Normal S1, S2. Regular rhythm. PULMONARY: (+) Rhonchi bilaterally. (+) Hypoxic. Clear to auscultation bilaterally. ABDOMEN: Soft, non-distended, non-tender, no rebound. BACK: (+) Chronic back pain - several herniated discs EXTREMITIES: (+) 2+ bilateral lower extremity pitting edema. Normal ROM in all four extremities. No gross deformities. SKIN: Warm, dry. No rash NEUROLOGICAL: No focal neurological deficits. <Antoinette Wiseman - Last Filed: 09/17/18 23:45> - Resident Resident Name: Sundar Villarreal - ED Attending Attestation I have performed the following: I have examined & evaluated the patient, The case was reviewed & discussed with the resident, I agree w/resident's findings & plan, Exceptions are as noted - Medical Decision Making 09/18/18 00:06 67 yo male p/w fever ,cough x 2 days being admitted for pneumonia cbc 18,000 leukocytosis VILLA cr=4.2 negative troponin 0.03 pt given antibiotics and admitted pt is on 3 L nasal cannula o2. When we discussed if he would allow intubation in the case it were necessary , he said he would not want to be placed on a ventilator and he is DNR/DNI <Ramya Poole - Last Filed: 09/18/18 00:10> Attestations - Attestations 09/17/18 23:21 Documentation prepared by Antoinette Wiseman, acting as medical instrument cable fabricator for Ramya Poole MD. <Antoinette Wiseman - Last Filed: 09/17/18 23:45>
[2018-09-17 23:25] LABS: INR 1.16 (0.83-1.09); PROTHROMBIN TIME (PATIENT) 13.7 SEC (9.7-13.0)
[2018-09-17] MEDS ORDERED: oxyCODONE HCL 5 MG TABLET ONE (23:38)
[2018-09-17 23:47] LABS: ALBUMIN 3.6 g/dl (3.4-5.0); ALK PHOS 102 U/L (45-117); ANION GAP 6 MMOL/L (8-16); BILIRUBIN,TOTAL 0.5 mg/dL (0.2-1); BLOOD UREA NITROGEN 87 mg/dL (7-18); CALCIUM 8.8 mg/dL (8.5-10.1); CHLORIDE 102 mmol/L (98-107); CO2 30 mmol/L (21-32); CREATININE 4.2 mg/dL (0.55-1.3); GLUCOSE,RANDOM 106 mg/dL (74-106); N-TERMINAL BNP 906.8 pg/ml (5-125); POTASSIUM 4.6 mmol/L (3.5-5.1); SGOT/AST 18 U/L (15-37); SGPT/ALT 19 U/L (13-61); SODIUM 139 mmol/L (136-145); TOT PROT 7.3 g/dl (6.4-8.2)
--- NOTE | 2018-09-18 00:04 | PN ---
Teaching Attending Note Name of Resident: Thor Carl ATTENDING PHYSICIAN STATEMENT I saw and evaluated the patient. I reviewed the resident's note and discussed the case with the resident. I agree with the resident's findings and plan as documented. SUBJECTIVE: Patient is a 67 year old man with a PMH of NIDDM, testicular cancer with lymphnode dissection, Penicillin allergy, CAD (s/p 4 vessel CABG 2016 at [facility]), diastolic CHF, CKD, TIA, HTN, ?gout, ?afib, restless leg syndrome, and internal hemorrhoids (rectal bleeding) who presents to the ER with complaints of a cough and fever. The patient states that he's had a nonproductive cough for 2 days without chest pain. He does admit to SOB. Per his at bedside, she states that he developed fevers tonight and became altered and was " mumbling to himself". The patient admits to fever, cough, SOB, but denies CP. Per the , the patient has also been complaining of lightheadedness since his discharge from our facility 2 days ago. Was hospitalized from 09/11/18 to for SOB, cough and leg edema. OBJECTIVE: Alert and looks distressed with anasarca Vital Signs Period Temp Pulse Resp BP Sys/Guo Pulse Ox Last 24 Hr 100.7 F 89 22 141/78 92 HEENT: No Jaundice, eye redness or discharge, PERRLA, EOMI. Normocephalic, atraumatic. External ears are normal and hearing is grossly intact. No nasal discharge. Neck: Supple, nontender. No palpable adenopathy or thyromegaly. No JVD Chest: Good effort. Clear to auscultation and percussion. Heart: Regular. No S3, rub or murmur Abdomen: Obese with LLQ ecchymosis; surgical scars; not distended, soft, nontender and no HSM. No rebound or guarding. Normoactive bowel sounds. Ext: Peripheral pulses intact. Leg edema. Skin: Warm and dry. No petechiae, rash or ecchymosis. Neuro: Alert. Oriented x3. CN 2-12 grossly intact. Sensation grossly intact in all four extremities and DTR are symmetric. Current Medications Generic Name Dose Route Start Last Admin Trade Name Freq PRN Reason Stop Dose Admin Sodium Chloride 1,000 mls @ 50 mls/hr 09/17/18 22:30 09/17/18 22:41 Normal Saline - IV 50 mls/hr ASDIR CHAPINCITO Administration Home Medications Medication Instructions Recorded Aspirin [ASA -] 81 mg PO DAILY 09/20/15 Atorvastatin Ca [Lipitor] 80 mg PO HS 09/20/15 Carvedilol 25 mg PO BID 09/20/15 Cholecalciferol (Vitamin D3) 2,000 unit PO DAILY 09/20/15 [D3-2000] Insulin (Levemir) [Levemir Vial] 70 unit SQ BID 09/20/15 Nitroglycerin Sublingual 0.4 mg SL [id number] PRN #30 tab 10/07/16 [Nitrostat -] Exenatide [Byetta] 10 mcg SQ BID 02/14/17 oxyCODONE HCL [Roxicodone -] 10 mg PO Q4H PRN 02/14/17 Krill/Om-3/Dha/Epa/Phospho/Ast 1 each PO BID 11/22/17 [Krill Oil 500 mg Softgel] Multivit-Min/FA/Lycopen/Lutein 1 each PO DAILY 11/22/17 [Centrum Silver Men Tablet] Nitroglycerin Patch [Nitro-Dur 0.4 mg TD DAILY 11/22/17 Patch -] Furosemide [Lasix -] 60 mg PO DAILY #60 tablet 01/26/18 Ferrous Sulfate [Iron] 325 mg PO DAILY 07/27/18 Sylva-3 Acid Ethyl Esters [Lovaza 1,000 mg PO HS 07/27/18 -] Ascorbic Acid [Vitamin C -] 500 mg PO DAILY tablet 09/15/18 hydrALAZINE HCL [Apresoline -] 50 mg PO BID #60 tablet 09/15/18 Abnormal Lab Results 09/17/18 09/17/18 09/17/18 22:57 22:57 22:57 WBC 18.7 H RBC 2.75 L Hgb 8.2 L Hct 24.2 L Absolute Neuts (auto) 15.6 H Neutrophils % 83.6 H D Lymphocytes % 6.8 L D PT with INR 13.70 H INR 1.16 H POC VBG pCO2 53.6 H Mixed VBG HCO3 27.8 H Anion Gap BUN Creatinine B-Natriuretic Peptide 09/17/18 22:57 WBC RBC Hgb Hct Absolute Neuts (auto) Neutrophils % Lymphocytes % PT with INR INR POC VBG pCO2 Mixed VBG HCO3 Anion Gap 6 L BUN 87 H Creatinine 4.2 H B-Natriuretic Peptide 906.8 H ASSESSMENT AND PLAN: 1. Viral syndrome/?Pneumonia - CXR shows cardiomegaly, pulmonary vascular congestion and blunted left costophrenic angle. No acute pathology on EKG. Flu swab is negative. Getting a CT chest - shows LLL pneumonia. Will get urine legionella antigen. Sepsis work up has been done. Fluid overload due to nephrosis, CKD and diastolic CHF superimposed on pneumonia is likely culprit. Will treat for healthcare-associated pneumonia with vancomycin and levaquin. Will diurese under the guidance of the fitness specialist and newcomer hostess. Restrict dietary salt intake and get daily weight. 2. DM - For now, we will hold the home diabetes drugs and implement sliding scale insulin regimen. Provide comprehensive diabetes care with patient teaching and counseling about the importance of euglycemia, eye care and foot care. 3. CKD - Likely diabetic nephropathy. Will consult nephrology and avoid nephrotoxic agents such as NSAIDS, aminoglycosides, contrast dyes and certain Alternative medicine products. 4. Anemia - Likely mostly renal anemai. Will do basic anemia work up including serial stool guaiacs, reticulocyte count and iron studies. Would benefit from Procrit therapy once iron replete with IV iron. 5. Obesity - Will provide patient all the necessary assistance , counseling and positive reinforcement to facilitate weight loss. Consult funds transfer clerk. 6. DVT prophylaxis - Heparin 5000u sq tid. 7. Advance directives - DNR
--- NOTE | 2018-09-18 01:44 | HP ---
CHIEF COMPLAINT: SOB, Cough, AMS PCP: Dr. Kurtz HISTORY OF PRESENT ILLNESS: The patient is a 67 yo m w/ PMH IDDM, CAD, dCHF, CKD and HTN who comes into the ED c/o a 2 day hx of cough and SOB. The patient endorses a cough productive of yellow sputum. Over the past few days, the patient's ssx got progressively worse. Per the patient's , the patient began to display altered mental status, "talking nonsense." The patient's attempted to check the patient's blood sugar, but was unale to figure out how to work the machine, so she called EMS. The patient's is unsure of whether or not the patient had a fever. Of note, the patient was recently admitted to [facility] (d/c 09/15/18) for elevated creatinine. ER course was notable for: (1) febrile to 100.7, WBC 18.7 (2) Hb 8.2 (was 9.7 09/14/18) (3) Recent Travel: none PAST MEDICAL HISTORY: Testicular cancer s/p chemo, in remission, follows w/ Dr. Araujo TIA Chronic back PAST SURGICAL HISTORY: CABG Social History: Smoking: denies Alcohol: denies Drugs: denies Family History: non-contributory Allergies Penicillins Allergy (Verified 09/17/18 22:10) Rash sumatriptan [From Imitrex] Allergy (Verified 09/17/18 22:10) sumatriptan succinate [From Imitrex] Allergy (Verified 09/17/18 22:10) ASPARTANE Allergy (Severe, Uncoded 09/17/18 22:10) HEADACHE TRYPTOPHAN Allergy (Intermediate, Uncoded 09/17/18 22:10) DIARRHEA/VOMITING HOME MEDICATIONS: Home Medications Medication Instructions Recorded Aspirin [ASA -] 81 mg PO DAILY 09/20/15 Atorvastatin Ca [Lipitor] 80 mg PO HS 09/20/15 Carvedilol 25 mg PO BID 09/20/15 Cholecalciferol (Vitamin D3) 2,000 unit PO DAILY 09/20/15 [D3-2000] Insulin (Levemir) [Levemir Vial] 70 unit SQ BID 09/20/15 Nitroglycerin Sublingual 0.4 mg SL [id number] PRN #30 tab 10/07/16 [Nitrostat -] Exenatide [Byetta] 10 mcg SQ BID 02/14/17 oxyCODONE HCL [Roxicodone -] 10 mg PO Q4H PRN 02/14/17 Krill/Om-3/Dha/Epa/Phospho/Ast 1 each PO BID 11/22/17 [Krill Oil 500 mg Softgel] Multivit-Min/FA/Lycopen/Lutein 1 each PO DAILY 11/22/17 [Centrum Silver Men Tablet] Nitroglycerin Patch [Nitro-Dur 0.4 mg TD DAILY 11/22/17 Patch -] Furosemide [Lasix -] 60 mg PO DAILY #60 tablet 01/26/18 Ferrous Sulfate [Iron] 325 mg PO DAILY 07/27/18 Turon-3 Acid Ethyl Esters [Lovaza 1,000 mg PO HS 07/27/18 -] Ascorbic Acid [Vitamin C -] 500 mg PO DAILY tablet 09/15/18 hydrALAZINE HCL [Apresoline -] 50 mg PO BID #60 tablet 09/15/18 REVIEW OF SYSTEMS CONSTITUTIONAL: Absent: fever, chills, diaphoresis, generalized weakness, malaise, loss of appetite, weight change HEENT: Absent: rhinorrhea, nasal congestion, throat pain, throat swelling, difficulty swallowing, mouth swelling, ear pain, eye pain, visual changes CARDIOVASCULAR: Absent: chest pain, syncope, palpitations, irregular heart rate, lightheadedness , peripheral edema RESPIRATORY: Absent: dyspnea with exertion, orthopnea, wheezing, stridor, hemoptysis GASTROINTESTINAL: Absent: abdominal pain, abdominal distension, nausea, vomiting, diarrhea, constipation, melena, hematochezia GENITOURINARY: Absent: dysuria, frequency, urgency, hesitancy, hematuria, flank pain, genital pain MUSCULOSKELETAL: Absent: myalgia, arthralgia, joint swelling, neck pain SKIN: Absent: rash, itching, pallor HEMATOLOGIC/IMMUNOLOGIC: Absent: easy bleeding, easy bruising, lymphadenopathy, frequent infections ENDOCRINE: Absent: unexplained weight gain, unexplained weight loss, heat intolerance, cold intolerance NEUROLOGIC: Absent: headache, focal weakness or paresthesias, dizziness, unsteady gait, seizure, mental status changes, bladder or bowel incontinence PSYCHIATRIC: Absent: anxiety, depression, suicidal or homicidal ideation, hallucinations. PHYSICAL EXAMINATION Vital Signs - 24 hr 09/17/18 21:49 Temperature 100.7 F H Pulse Rate 89 Respiratory 22 H Rate Blood Pressure 141/78 O2 Sat by Pulse 92 L Oximetry (%) GENERAL: Awake, alert, and fully oriented, appears uncomfortable. Patient coughed forcefully throughout the interview. HEAD: Normal with no signs of trauma. EYES: Pupils equal, round and reactive to light, extraocular movements intact, sclera anicteric, conjunctiva clear. No lid lag. LUNGS: Decreased breath sounds bilaterally. No wheezes, and no crackles. No accessory muscle use. HEART: Regular rate and rhythm, normal S1 and S2 without murmur, rub or gallop. ABDOMEN: Soft, nontender, not distended, normoactive bowel sounds, no guarding, no rebound, no masses. No hepatomegaly or splenomegaly. LOWER EXTREMITIES: 2+ pulses, warm, well-perfused. No calf tenderness. No peripheral edema. NEUROLOGICAL: Cranial nerves II-X intact. Normal speech. SKIN: Warm, dry, normal turgor, no rashes or lesions noted, normal capillary refill. Laboratory Results - last 24 hr 09/17/18 09/17/18 09/17/18 22:57 22:57 22:57 WBC 18.7 H RBC 2.75 L Hgb 8.2 L Hct 24.2 L MCV 88.1 MCH 29.7 MCHC 33.7 RDW 15.3 Plt Count 211 D MPV 8.1 Absolute Neuts (auto) 15.6 H Neutrophils % 83.6 H D Lymphocytes % 6.8 L D Monocytes % 7.2 Eosinophils % 1.9 Basophils % 0.5 Nucleated RBC % 0 PT with INR 13.70 H INR 1.16 H PTT (Actin FS) 32.0 VBG pH 7.34 POC VBG pCO2 53.6 H POC VBG pO2 46.9 Mixed VBG HCO3 27.8 H Sodium Potassium Chloride Carbon Dioxide Anion Gap BUN Creatinine Creat Clearance w eGFR Random Glucose Lactic Acid Calcium Total Bilirubin AST ALT Alkaline Phosphatase Troponin I B-Natriuretic Peptide Total Protein Albumin Influenza A (Rapid) Influenza B (Rapid) 09/17/18 09/17/18 09/17/18 22:57 22:57 22:57 WBC RBC Hgb Hct MCV MCH MCHC RDW Plt Count MPV Absolute Neuts (auto) Neutrophils % Lymphocytes % Monocytes % Eosinophils % Basophils % Nucleated RBC % PT with INR INR PTT (Actin FS) VBG pH POC VBG pCO2 POC VBG pO2 Mixed VBG HCO3 Sodium 139 Potassium 4.6 Chloride 102 Carbon Dioxide 30 Anion Gap 6 L BUN 87 H Creatinine 4.2 H Creat Clearance w eGFR 14.27 Random Glucose 106 Lactic Acid 0.6 Calcium 8.8 Total Bilirubin 0.5 AST 18 ALT 19 Alkaline Phosphatase 102 Troponin I 0.03 Cancelled B-Natriuretic Peptide 906.8 H Total Protein 7.3 Albumin 3.6 Influenza A (Rapid) Influenza B (Rapid) 09/17/18 09/17/18 22:57 23:31 WBC RBC Hgb Hct MCV MCH MCHC RDW Plt Count MPV Absolute Neuts (auto) Neutrophils % Lymphocytes % Monocytes % Eosinophils % Basophils % Nucleated RBC % PT with INR INR PTT (Actin FS) VBG pH POC VBG pCO2 POC VBG pO2 Mixed VBG HCO3 Sodium Potassium Chloride Carbon Dioxide Anion Gap BUN Creatinine Creat Clearance w eGFR Random Glucose Lactic Acid Calcium Total Bilirubin AST ALT Alkaline Phosphatase Troponin I B-Natriuretic Peptide Cancelled Total Protein Albumin Influenza A (Rapid) Negative Influenza B (Rapid) Negative ASSESSMENT/PLAN: The patient is a 67yo m w/ PMH DM, CAD, dCHF, CKD, HTN who comes into the ED c/ o a 2 day hx of cough and AMS. #Cough/SOB due to unclear eitology, possibly fluid overload vs pneumonia vs other infectious cause -s/p 1g Vancomycin in ED -UA, urine Cx, Bcx sent -will obtain CT chest to further evaluate -urine antigens for PNA -if patient found to have PNA, will treat HCAP w/ Levaquin and Vancomycin. -Random Vanc trough in 24 hrs; will guide dosing accordingly -ID consult; Dr. Bartlett #CKD/nephrotic syndrome w/ possible VILLA -Cr 4.2 today, was 3.7 on d/c -nephology consult, Dr. Alatorre -holding nephrotoxic meds overnight #Anemia -Hb 8.2, was 9.7 on d/c -pe patient, he has a hx of bleeding internal hemmorhoids -FE studies from January show low iron, TIBC, transferrin -will rpt FE studies in AM -May benefit from IV iron/ procrit #DM -BGM ACHS -ISS ACHS #HTN -c/w home medications #dCHF -holding home lasix overnight pending nephro input #FEN -no fluids indicated -lytes wnl, monitor -diabetic diet #prophy -heparin SQ 5k units q8h #dispo -admit med surg Visit type - Emergency Visit Emergency Visit: Yes ED Registration Date: 09/18/18 Care time: The patient presented to the Emergency Department on the above date and was hospitalized for further evaluation of their emergent condition. - New Patient This patient is new to me today: Yes Date on this admission: 09/18/18 - Critical Care Critical Care patient: No
[2018-09-18] MEDS ORDERED: HEPARIN NA (PORCINE) 5,000 UNITS/ML 1ML VIAL ONE (01:45)
[2018-09-18] MEDS ORDERED: NITROGLYCERIN SUBLINGUAL 1/150 0.4 MG TAB SL PRN (03:08)
[2018-09-18] MEDS: HEPARIN NA (PORCINE) 5,000 UNITS/ML 1ML VIAL SQ SCH ×3 (05:49→22:38)
[2018-09-18] MEDS: INSULIN SLIDING SCALE (NOVOLOG) 1 VIAL SQ SCH ×4 (06:54→22:39)
[2018-09-18] MEDS: CARVEDILOL 25 MG TABLET (FP) PO SCH ×2 (09:50→22:38)
[2018-09-18] MEDS: ASPIRIN 81 MG CHEWABLE TABLETS PO SCH (09:50)
[2018-09-18] MEDS: oxyCODONE HCL 5 MG TABLET PO PRN ×2 (09:51→15:37)
[2018-09-18] MEDS ORDERED: EXENATIDE 10 MCG SQ SCH (10:00)
[2018-09-18] MEDS: NITROGLYCERIN 0.4 MG/HOUR TD PATCH TD SCH (11:45)
--- NOTE | 2018-09-18 12:16 | EKG ---
Test Reason : Blood Pressure : / mmHG Vent. Rate : 081 BPM Atrial Rate : 081 BPM P-R Int : 206 ms QRS Dur : 114 ms QT Int : 392 ms P-R-T Axes : 075 046 048 degrees QTc Int : 455 ms NORMAL SINUS RHYTHM INCOMPLETE RIGHT BUNDLE BRANCH BLOCK BORDERLINE ECG Confirmed by MD ANDERS, MARÍA ([id number]) on 09/18/2018 12:16:19 PM Referred By: Confirmed By:MARÍA MCNAMARA MD
--- NOTE | 2018-09-18 12:25 | CONSULT ---
Consult Consult Specialty:: Nephrology Reason for Consultation:: VILLA - History of Present Illness Chief Complaint: cough and fever History of Present Illness: Pt is a 67 year old male with pmhx of DM, CAD, CABG, CKD, CHF, HTN, TIA who presents to the er with cough and fever. He was recently discharged from the hospital. He was found to have elevated creatinine and I was called to evaluate him. He has CKD but does not want any renal replacement therapy in the future. 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: TIA, Other (possible restless leg syndrome) Cardio/Vascular: Yes: CAD, CHF, HTN, Hyperlipdemia, Other (Cardiac arrest 2000 carotid artery stenosis) Pulmonary: Yes: Other (PNA after spinal surgery 2000) Gastrointestinal: Yes: Irritable Bowel Disease Renal/: Yes: Renal Inusuff, Other (testicular cancer) Psych: Yes: Depression Musculoskeletal: Yes: Chronic low back pain, Osteoarthritis, Other (sciatica) Rheumatology: Yes: Gout Endocrine: Yes: Diabetes Mellitus - Past Surgical History Past Surgical History: Yes: CABG, Cholecystectomy (1997) - Alcohol/Substance Use Hx Alcohol Use: No History of Substance Use: reports: None - Smoking History Smoking history: Never smoked Have you smoked in the past 12 months: No Aproximately how many cigarettes per day: 0 If you are a former smoker, when did you quit?: 1980 - Social History ADL: Independent History of Recent Travel: No Home Medications - Allergies Allergies/Adverse Reactions: Allergies Allergy/AdvReac Type Severity Reaction Status Date / Time Penicillins Allergy Rash Verified 09/17/18 22:10 sumatriptan [From Imitrex] Allergy Verified 09/17/18 22:10 sumatriptan succinate Allergy Verified 09/17/18 22:10 [From Imitrex] ASPARTANE Allergy Severe HEADACHE Uncoded 09/17/18 22:10 TRYPTOPHAN Allergy Intermediate DIARRHEA/VO Uncoded 09/17/18 22:10 MITING - Home Medications Home Medications: Ambulatory Orders Aspirin [ASA -] 81 mg PO DAILY 09/20/15 Atorvastatin Ca [Lipitor] 80 mg PO HS 09/20/15 Carvedilol 25 mg PO BID 09/20/15 Cholecalciferol (Vitamin D3) [D3-2000] 2,000 unit PO DAILY 09/20/15 Insulin (Levemir) [Levemir Vial] 70 unit SQ BID 09/20/15 Nitroglycerin Sublingual [Nitrostat -] 0.4 mg SL [id number] PRN #30 tab 10/07/16 Exenatide [Byetta] 10 mcg SQ BID 02/14/17 oxyCODONE HCL [Roxicodone -] 10 mg PO Q4H PRN 02/14/17 Krill/Om-3/Dha/Epa/Phospho/Ast [Krill Oil 500 mg Softgel] 1 each PO BID Multivit-Min/FA/Lycopen/Lutein [Centrum Silver Men Tablet] 1 each PO DAILY 11/22 Nitroglycerin Patch [Nitro-Dur Patch -] 0.4 mg TD DAILY 11/22/17 Furosemide [Lasix -] 60 mg PO DAILY #60 tablet 01/26/18 Ferrous Sulfate [Iron] 325 mg PO DAILY 07/27/18 Caldwell-3 Acid Ethyl Esters [Lovaza -] 1,000 mg PO HS 07/27/18 Ascorbic Acid [Vitamin C -] 500 mg PO DAILY tablet 09/15/18 hydrALAZINE HCL [Apresoline -] 50 mg PO BID #60 tablet 09/15/18 Family Disease History - Family Disease History Family Disease History: Diabetes: Mother ( (80s) ), Heart Disease: Father ( (90s)), Other: Sister (alive (69) thyroid disease) Review of Systems - Review of Systems Constitutional: reports: Chills, Fever, Malaise, Weakness Eyes: reports: No Symptoms HENT: reports: No Symptoms Neck: reports: No Symptoms Cardiovascular: reports: Edema, Shortness of Breath. denies: Chest Pain Respiratory: reports: Cough, SOB on Exertion Gastrointestinal: reports: No Symptoms Genitourinary: reports: No Symptoms Musculoskeletal: reports: Muscle Weakness Integumentary: reports: No Symptoms Neurological: reports: No Symptoms Endocrine: reports: No Symptoms Psychiatric: reports: No Symptoms Physical Exam Vital Signs: Vital Signs Temperature 97.8 F 09/18/18 09:57 Pulse Rate 78 09/18/18 09:57 Respiratory Rate 20 09/18/18 09:57 Blood Pressure 140/62 09/18/18 09:57 O2 Sat by Pulse Oximetry (%) 95 09/18/18 05:32 Constitutional: Yes: Calm Eyes: Yes: Conjunctiva Clear HENT: Yes: Atraumatic Cardiovascular: Yes: S1, S2 Respiratory: Yes: On Nasal O2, Wheezes Gastrointestinal: Yes: Soft, Abdomen, Obese Renal/: Yes: WNL Edema: Yes Edema: LLE: 2+, RLE: 2+ Neurological: Yes: Oriented Psychiatric: Yes: Oriented Labs: CBC, BMP 09/17/18 22:57 09/17/18 22:57 Laboratory Tests 09/14/18 09/17/18 09/17/18 06:00 22:57 22:57 WBC 18.7 H Hgb 8.2 L Creatinine 3.6 H 4.2 H Influenza A (Rapid) Influenza B (Rapid) 09/17/18 23:31 WBC Hgb Creatinine Influenza A (Rapid) Negative Influenza B (Rapid) Negative Imaging - Results Chest X-ray: Report Reviewed Problem List - Problems (1) VILLA (acute kidney injury) Code(s): N17.9 - ACUTE KIDNEY FAILURE, UNSPECIFIED (2) CKD (chronic kidney disease) Code(s): N18.9 - CHRONIC KIDNEY DISEASE, UNSPECIFIED Assessment/Plan Current Medications Generic Name Dose Route Start Last Admin Trade Name Freq PRN Reason Stop Dose Admin Aspirin 81 mg 09/18/18 10:00 09/18/18 09:50 Asa - PO 81 mg DAILY CHAPINCITO Administration Atorvastatin Calcium 80 mg 09/18/18 22:00 Lipitor - PO HS CHAPINCITO Carvedilol 25 mg 09/18/18 10:00 09/18/18 09:50 Coreg - PO 25 mg BID CHAPINCITO Administration Heparin Sodium (Porcine) 5,000 unit 09/18/18 06:00 09/18/18 05:49 Heparin - SQ 5,000 unit TID CHAPINCITO Administration Levofloxacin 750 mg in 150 mls @ 100 mls/hr 09/18/18 03:21 09/18/18 04:10 Levaquin 750 Mg Premixed Ivpb - IVPB 100 mls/hr DAILY CHAPINCITO Administration Protocol Insulin Aspart 1 vial 09/18/18 07:00 09/18/18 11:50 Novolog Vial Sliding Scale - SQ 2 units ACHS CHAPINCITO Administration Protocol Nitroglycerin 0.4 mg 09/18/18 10:00 09/18/18 11:45 Nitro-Dur Patch - TD 0.4 mg DAILY CHAPINCITO Administration Nitroglycerin 0.4 mg 09/18/18 03:08 Nitrostat - SL Q5M PRN CHEST PAIN Non-Formulary Medication 10 mcg 09/18/18 10:00 Exenatide [Byetta] SQ BID CHAPINCITO Oxycodone HCl 10 mg 09/18/18 09:07 09/18/18 09:51 Roxicodone - PO 10 mg Q4H PRN Administration PAIN Selected Entries 09/18/18 07:52 Weight 241 lb 14.4 oz Impression 1. VILLA 2. hyperkalemia 3. ckd 4. fluid overload 5. cad 6. dm 7. PNA Plan - agree with holding lasix - repeat labs in am - will evaluate volume status daily - weights is 241 (he was at 250 at last admission) - check weights daily
[2018-09-18 13:11] VITALS: BMI 37.7
--- NOTE | 2018-09-18 14:08 | PN ---
Progress Note (short form) - Note Progress Note: ID CONSULT DICTATED LLL HCAP R/O SEPSIS SECONDARY TO PNEUMONIA RENAL FAILURE ? MAJOR PCN ALLERGY PENDING C/S EMPIRIC COVERAGE HCAP WITH MEROPENEM + STAT DOSE VANCOMYCIN
--- NOTE | 2018-09-18 14:34 | PN ---
Physical Exam: SUBJECTIVE: Patient seen and examined by me at bedside. No acute events overnight Still has dry cough with some shortness of breath Otherwise, denies any fever, chills, nausea, vomiting, abdominal pain, headaches , dysuria OBJECTIVE: Vital Signs Period Temp Pulse Resp BP Sys/Guo Pulse Ox Last 24 Hr 97.8 F-100.7 F 77-89 20-22 121-147/48-78 92-95 GENERAL: The patient is awake, alert, and fully oriented, in no acute distress. EYES: Sclera anicteric, conjunctiva clear. No ptosis. ENT: Moist mucous membranes. LUNGS: Decreased breath sounds throughout lung bases with no wheezes, no crackles, no accessory muscle use. HEART: Regular rate and rhythm, normal s1 and s2, without murmur, rub or gallop. ABDOMEN: Soft, nontender, nondistended, normoactive bowel sounds, no guarding, no rebound. EXTREMITIES: 2-3+ edema bilateral LE NEUROLOGICAL: Cranial nerves II through XII grossly intact. Normal speech Laboratory Results CBC, BMP 09/17/18 22:57 09/17/18 22:57 Active Medications Generic Name Dose Route Start Last Admin Trade Name Freq PRN Reason Stop Dose Admin Aspirin 81 mg 09/18/18 10:00 09/18/18 09:50 Asa - PO 81 mg DAILY CHAPINCITO Administration Atorvastatin Calcium 80 mg 09/18/18 22:00 Lipitor - PO HS CHAPINCITO Carvedilol 25 mg 09/18/18 10:00 09/18/18 09:50 Coreg - PO 25 mg BID CHAPINCITO Administration Heparin Sodium (Porcine) 5,000 unit 09/18/18 06:00 09/18/18 13:45 Heparin - SQ 5,000 unit TID CHAPINCITO Administration Levofloxacin 750 mg in 150 mls @ 100 mls/hr 09/18/18 03:21 09/18/18 04:10 Levaquin 750 Mg Premixed Ivpb - IVPB 100 mls/hr DAILY CHAPINCITO Administration Protocol Meropenem 500 mg/ Dextrose 100 mls @ 200 mls/hr 09/18/18 18:00 IVPB Q8H-IV CHAPINCITO Insulin Aspart 1 vial 09/18/18 07:00 09/18/18 11:50 Novolog Vial Sliding Scale - SQ 2 units ACHS CHAPINCITO Administration Protocol Nitroglycerin 0.4 mg 09/18/18 10:00 09/18/18 11:45 Nitro-Dur Patch - TD 0.4 mg DAILY CHAPINCITO Administration Nitroglycerin 0.4 mg 09/18/18 03:08 Nitrostat - SL Q5M PRN CHEST PAIN Non-Formulary Medication 10 mcg 09/18/18 10:00 Exenatide [Byetta] SQ BID CHAPINCITO Oxycodone HCl 10 mg 09/18/18 09:07 09/18/18 09:51 Roxicodone - PO 10 mg Q4H PRN Administration PAIN ASSESSMENT/PLAN: Patient is a 67 year old male who presented with a cough for 2 days associated with altered mental status, concerning for pneumonia. Patient admitted for further monitoring and management. Sepsis Secondary to Healthcare Acquired Pneumonia -Vancoycin 1gm daily IVPB (Day #2) -Meropenem 1gm Q8H IVPB (Day #1) -Blood cultures pending -Legionella negative -HOB -Aspiration precaution -Tylenol PRN for fevers VILLA on CKD -Creatinine 4.2 on admission -Lasix was held and will continue to be held, as per nephro -Daily weights with strict I&O's -Avoid nephrotoxic medications and renally dose medications -Continue daily BMP's Iron Deficiency with Superimposed Anemia of Chronic Disease -Hb 8.2, was 9.7 on d/c -Has a history of bleeding internal hemmorhoids -FE studies pending IDDMII -Will resume Levemir 30 units HS -ISS -BGM HTN -Continue Coreg 25mg BID -Continue to monitor BP Diastolic CHF -In no acute exacerbation -Continue to hold Lasix, As per Nephro -Continue Coreg HLD -Continue Lipitor 80mg HS CAD -Continue ASA 81mg daily -Continue Coreg 25mg BID -Continue Lipitor 80 mg HS F/E/N -On fluids indicated -Electrolytes wnl, monitor -Diabetic diet Prophylaxis -Heparin SQ 5k units q8h for DVT -No GI required Disposition -DNR, now requesting DNI as well -Admit to med/surg Janeth Dickinson [id number] Visit type - Emergency Visit Emergency Visit: Yes ED Registration Date: 09/18/18 Care time: The patient presented to the Emergency Department on the above date and was hospitalized for further evaluation of their emergent condition. - New Patient This patient is new to me today: Yes Date on this admission: 09/18/18 - Critical Care Critical Care patient: No
--- NOTE | 2018-09-18 14:39 | PN ---
Teaching Attending Note Name of Resident: Janeth Dickinson ATTENDING PHYSICIAN STATEMENT I saw and evaluated the patient. I reviewed the resident's note and discussed the case with the resident. I agree with the resident's findings and plan as documented. SUBJECTIVE: Mr Carolina is feeling better but still with malaise. Complains of chronic pain and lower extremity edema. No cp, sob, n/v. OBJECTIVE: Last Vital Signs Temp Pulse Resp BP Pulse Ox 37.4 C 80 20 121/48 L 94 L 09/18/18 13:17 09/18/18 13:17 09/18/18 13:17 09/18/18 13:17 09/18/18 09:00 Gen: nad, obese Pulm: ronchi bilaterally CV: rrr w/o m/r/g Abd: +bs, s/nt/nd Ext: 3+ BLE pitting edema CBC, BMP 09/17/18 22:57 09/17/18 22:57 ASSESSMENT AND PLAN: Problem List - Problems (1) HCAP (healthcare-associated pneumonia) Assessment/Plan: -noted to have HCAP -admit to med/surg -ID consult -receiving vancomycin/merrem/levaquin Code(s): J18.9 - PNEUMONIA, UNSPECIFIED ORGANISM (2) Sepsis Assessment/Plan: -secondary to pneumonia -treat with antibiotics Code(s): A41.9 - SEPSIS, UNSPECIFIED ORGANISM (3) Acute on chronic kidney failure Assessment/Plan: -hold nephrotoxic agents -case d/w Dr Alatorre -closely monitor fluid status and renal function Code(s): N17.9 - ACUTE KIDNEY FAILURE, UNSPECIFIED; N18.9 - CHRONIC KIDNEY DISEASE, UNSPECIFIED Qualifiers: Acute renal failure type: unspecified Chronic kidney disease stage: stage 4 (severe) Qualified Code(s): N17.9 - Acute kidney failure, unspecified; N18.4 - Chronic kidney disease, stage 4 (severe) (4) Anemia Assessment/Plan: -lower today but does not need transfusion Code(s): D64.9 - ANEMIA, UNSPECIFIED Qualifiers: Anemia type: due to chronic kidney disease Chronic kidney disease stage: stage 4 (severe) Qualified Code(s): N18.4 - Chronic kidney disease, stage 4 ( severe); D63.1 - Anemia in chronic kidney disease (5) CAD (coronary artery disease) Assessment/Plan: -quiescent Code(s): I25.10 - ATHSCL HEART DISEASE OF [place] CORONARY ARTERY W/O ANG PCTRS Qualifiers: [place] vs. transplanted heart: [place] heart (6) Chronic lower back pain Assessment/Plan: -continue oxycodone Code(s): M54.5 - LOW BACK PAIN; G89.29 - OTHER CHRONIC PAIN (7) Diabetes Assessment/Plan: -cannot be on diabetic diet secondary to allergy to sugar substitutes -continue byetta -FSBS and SSI Code(s): E11.9 - TYPE 2 DIABETES MELLITUS WITHOUT COMPLICATIONS Qualifiers: 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 type: type 2 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 manager terminal insulin use: with fci use 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 complication status: with kidney complications 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 complication detail: with chronic kidney disease Chronic kidney disease stage: stage 4 (severe) Qualified Code(s): E11.22 - Type 2 diabetes mellitus with diabetic chronic kidney disease; N18.4 - Chronic kidney disease, stage 4 (severe); Z79.4 - intermediate (current) use of insulin (8) HTN (hypertension) Assessment/Plan: -currently controlled Code(s): I10 - ESSENTIAL (PRIMARY) HYPERTENSION Qualifiers: Hypertension type: essential hypertension Qualified Code(s): I10 - Essential (primary) hypertension (9) Hyperlipidemia Assessment/Plan: -continue statin Code(s): E78.5 - HYPERLIPIDEMIA, UNSPECIFIED (10) Obesity Code(s): E66.9 - OBESITY, UNSPECIFIED Qualifiers: Obesity type: due to excess calories
[2018-09-18] MEDS: MEROPENEM 500 MG in DEXTROSE 5%-WATER 100 ML IVPB SCH (15:26)
--- NOTE | 2018-09-18 15:49 | CONS ---
INFECTIOUS DISEASE CONSULTATION DATE OF CONSULTATION: DATE OF DICTATION: 09/18/2018 HISTORY OF PRESENT ILLNESS: The patient is a 67-year-old male evaluated for left lower lobe pneumonia. He was recently admitted to [facility] from September 11 through September 15. He was treated at that time for renal failure and edema. He reports that while in the hospital, his roommate was being treated for pneumonia and was coughing. Upon returning home, he developed worsening cough and fever. His reported that he appeared confused. She brought him back to the emergency room, where he was febrile, hypoxemic. White blood cell count was markedly elevated. Chest x-ray showed possible left retrocardiac infiltrate. CAT scan of the chest now shows patchy left lower lobe infiltrate. The patient reports cough which is nonproductive. He denies any purulent sputum production or hemoptysis. He has some bilateral pleuritic-type chest pain with a cough. Denies dyspnea. Patient, as stated above, reports being exposed to a patient with a respiratory tract illness. He lives at home with his who is well. No recent travel. No recent antibiotic therapy. The patient is a nonsmoker. PAST MEDICAL HISTORY: Positive for diabetes mellitus, coronary artery disease, congestive heart failure, chronic kidney disease, testicular cancer treated with chemotherapy 30 years ago, TIA, hypertension. PAST SURGICAL HISTORY: Status post coronary artery bypass graft. ALLERGIES: PENICILLIN; IMITREX; ASPARTAME; TRYPTOPHAN. Patient reports developing a rash in childhood, after receiving penicillin. No clear history of anaphylaxis. SOCIAL HISTORY: He lives at home with his significant other. He is a nonsmoker. Nondrinker. He did receive the influenza and pneumococcal vaccines. SYSTEMS REVIEW: Neurologic: Positive for altered mental status and no loss of consciousness, seizure activity or focal weakness. Cardiac: Negative chest pain or palpitations. Respiratory: As per HPI. Gastrointestinal: Negative vomiting or diarrhea. Genitourinary: Positive for renal failure. LABORATORY DATA: White count 18.7, neutrophils 83, lymphocytes 6, monocytes 7, hematocrit 24.2, platelet count 211. BUN 87, creatinine 4.2. Blood cultures are pending. Influenza swab negative. PHYSICAL EXAMINATION; General: On physical examination, he is seated in bed. He is morbidly obese. He is not acutely short of breath. However, does seem slightly dyspneic on nasal cannula O2. Vital Signs: Temperature 99.3, T-maximum 100.7, blood pressure 121/48, pulse 80, regular, respirations 20 per minute. Eyes: Sclerae are anicteric. Heart: Heart sounds S1, S2. Lungs: Rales at the bases bilaterally. Abdomen: Obese. Soft. Nontender. Extremities: Positive for edema. Negative Homans sign. IMPRESSION: 1. Left lower lobe healthcare-acquired pneumonia. 2. Rule out sepsis, secondary to pneumonia. 3. Renal failure, acute on chronic. 4. Major PENICILLIN allergy. PLAN: Pending cultures, empiric antibiotic coverage for healthcare-acquired pneumonia with meropenem plus stat-dose vancomycin. Adjust meropenem for kidney function. Obtain sputum culture. Will follow. Thank you for the kind referral. ANDREA JOSEPH M.D. [id number]
[2018-09-18] MEDS ORDERED: INSULIN (NOVOLOG) ASPART 100 UNITS/ML 10ML VIAL ONE (22:00)
[2018-09-18] MEDS ORDERED: PT OWN MED DRAWER 7, Y5N ONE (22:02)
[2018-09-18] MEDS: NYSTATIN 100,000 UNIT/GM TOPICAL CREAM 15 GM TUBE TP SCH (22:38)
[2018-09-18] MEDS: ATORVASTATIN CA 80 MG TABLET (FP) PO SCH (22:38)
[2018-09-19] MEDS: oxyCODONE HCL 5 MG TABLET PO PRN ×4 (00:20→20:02)
[2018-09-19] MEDS ORDERED: PT OWN MED DRAWER 7, Y5N ONE ×3 (00:40→17:54)
[2018-09-19] MEDS ORDERED: ACETAMINOPHEN 325 MG TABLET (FP) PO ONE ×2 (01:34→22:55)
[2018-09-19] MEDS: MEROPENEM 500 MG in DEXTROSE 5%-WATER 100 ML IVPB SCH ×5 (01:58→17:57)
[2018-09-19] MEDS ORDERED: oxyCODONE HCL 5 MG TABLET PO ONE (02:47)
[2018-09-19 07:18] LABS: HEMATOCRIT 21.1 % (35.4-49); HEMOGLOBIN 7.1 GM/dL (11.7-16.9); MCH 29.8 pg (25.7-33.7); MCHC 33.7 g/dl (32.0-35.9); MEAN CELL VOLUME 88.5 fl (80-96); MEAN PLT VOLUME 8.2 fl (7.5-11.1); PLATELET COUNT 187 K/MM3 (134-434); RBC 2.38 M/mm3 (4.00-5.60); RDW 15.6 % (11.9-15.9); WHITE BLOOD COUNT 14.5 K/mm3 (4.0-10.0)
[2018-09-19] MEDS: INSULIN SLIDING SCALE (NOVOLOG) 1 VIAL SQ SCH ×4 (07:19→22:46)
[2018-09-19] MEDS: HEPARIN NA (PORCINE) 5,000 UNITS/ML 1ML VIAL SQ SCH ×3 (07:19→22:46)
[2018-09-19 07:48] LABS: ANION GAP 10 MMOL/L (8-16); CALCIUM 8.7 mg/dL (8.5-10.1); CHLORIDE 104 mmol/L (98-107); CO2 25 mmol/L (21-32); CREATININE 4.6 mg/dL (0.55-1.3); GLUCOSE,RANDOM 116 mg/dL (74-106); MAGNESIUM 2.8 mg/dL (1.8-2.4); PHOSPHOROUS 5.6 mg/dL (2.5-4.9); POTASSIUM 4.5 mmol/L (3.5-5.1); SODIUM 139 mmol/L (136-145)
[2018-09-19 08:37] LABS: SERUM IRON SATURATION 8 % (15-55); TOTAL IRON BINDING CAPACITY 243 ug/dL (250-450); UIBC 223 ug/dL (111-343)
[2018-09-19 08:39] LABS: INR 1.27 (0.83-1.09)
[2018-09-19 08:42] LABS: ACTIVATED PTT 28.1 SECONDS (25.2-36.5)
[2018-09-19 08:46] LABS: BLOOD UREA NITROGEN 105 mg/dL (7-18)
[2018-09-19] MEDS: ASPIRIN 81 MG CHEWABLE TABLETS PO SCH (09:51)
[2018-09-19] MEDS: CARVEDILOL 25 MG TABLET (FP) PO SCH ×2 (09:51→22:45)
[2018-09-19] MEDS: NITROGLYCERIN 0.4 MG/HOUR TD PATCH TD SCH (09:52)
[2018-09-19] MEDS: NYSTATIN 100,000 UNIT/GM TOPICAL CREAM 15 GM TUBE TP SCH ×3 (09:52→23:14)
--- NOTE | 2018-09-19 11:06 | PN ---
Physical Exam: SUBJECTIVE: Patient seen and examined by me at bedside No acute events overnight. Patient reports that he does not want any treatment and would like to just have comfort measures. Wants to speak to the palliative care team. Reports he has no suicidal ideations and that if he did he would have taken his bottle of oxycodone at home. States he is aware of what comfort measures is and that it would stop all medications. Patient reports he wants to only have pain control and not feel anything. Otherwise, patient reports his breathing is better. Denies any chest pain, palpitations, dizziness, abdominal pain, diarrhea, headaches, loss of consciousness, dysuria, hematuria. OBJECTIVE: Vital Signs Period Temp Pulse Resp BP Sys/Guo Pulse Ox Last 24 Hr 98.0 F-99.3 F 78-80 20-20 121-139/48-98 94 GENERAL: The patient is awake, alert, and fully oriented, in no acute distress. EYES: Sclera anicteric, conjunctiva clear. No ptosis. ENT: Moist mucous membranes. LUNGS: Decreased breath sounds throughout lung bases with no wheezes, no crackles, no accessory muscle use. HEART: Regular rate and rhythm, normal s1 and s2, without murmur, rub or gallop. ABDOMEN: Soft, nontender, nondistended, normoactive bowel sounds, no guarding, no rebound. EXTREMITIES: 2-3+ edema bilateral LE NEUROLOGICAL: Cranial nerves II through XII grossly intact. Normal speech Laboratory Results 09/19/18 06:00 09/19/18 06:00 Active Medications Generic Name Dose Route Start Last Admin Trade Name Freq PRN Reason Stop Dose Admin Aspirin 81 mg 09/18/18 10:00 09/19/18 09:51 Asa - PO 81 mg DAILY [facility] Administration Atorvastatin Calcium 80 mg 09/18/18 22:00 09/18/18 22:38 Lipitor - PO 80 mg HS [facility] Administration Carvedilol 25 mg 09/18/18 10:00 09/19/18 09:51 Coreg - PO 25 mg BID [facility] Administration Heparin Sodium (Porcine) 5,000 unit 09/18/18 06:00 09/19/18 07:19 Heparin - SQ Not Given TID [facility] Levofloxacin 750 mg in 150 mls @ 100 mls/hr 09/18/18 03:21 09/19/18 09:51 Levaquin 750 Mg Premixed Ivpb - IVPB 100 mls/hr DAILY [facility] Administration Protocol Meropenem 500 mg/ Dextrose 100 mls @ 200 mls/hr 09/18/18 15:00 09/19/18 04:04 IVPB 200 mls/hr Q8H-IV [facility] Administration Insulin Aspart 1 vial 09/18/18 07:00 09/19/18 07:19 Novolog Vial Sliding Scale - SQ Not Given ACHS [facility] Protocol Nitroglycerin 0.4 mg 09/18/18 10:00 09/19/18 09:52 Nitro-Dur Patch - TD 0.4 mg DAILY [facility] Administration Nitroglycerin 0.4 mg 09/18/18 03:08 Nitrostat - SL Q5M PRN CHEST PAIN Non-Formulary Medication 10 mcg 09/18/18 10:00 Exenatide [Byetta] SQ BID [facility] Nystatin 1 applic 09/18/18 22:00 09/19/18 09:52 Mycostatin Cream - TP 1 applic BID [facility] Administration Oxycodone HCl 10 mg 09/18/18 09:07 09/19/18 08:38 Roxicodone - PO 10 mg Q4H PRN Administration PAIN Oxycodone HCl 10 mg 09/19/18 09:01 Oxycontin - PO Q6H PRN PAIN LEVEL 7 - 10 ASSESSMENT/PLAN: Patient is a 67 year old male who presented with a cough for 2 days associated with altered mental status, concerning for pneumonia. Patient admitted for further monitoring and management. Sepsis Secondary to Healthcare Acquired Pneumonia -Vancoycin 1gm daily IVPB (Day #3) -Meropenem 1gm Q8H IVPB (Day #2) -Blood cultures NGTD -Legionella negative -HOB -Aspiration precaution -Tylenol PRN for fevers VILLA on CKD -Creatinine 4.6 today -Lasix held, as per nephro -Daily weights with strict I&O's -Avoid nephrotoxic medications and renally dose medications -Continue daily BMP's Iron Deficiency with Superimposed Anemia of Chronic Disease -Hb 7.1 today. Will likely require PRBC. Will speak to nephrology. -Has a history of bleeding internal hemmorhoids IDDMII -Will resume Levemir 30 units HS -ISS -BGM HTN -Continue Coreg 25mg BID -Continue to monitor BP Diastolic CHF -In no acute exacerbation -Continue to hold Lasix, As per Nephro -Continue Coreg HLD -Continue Lipitor 80mg HS CAD -Continue ASA 81mg daily -Continue Coreg 25mg BID -Continue Lipitor 80 mg HS F/E/N -On fluids indicated -Electrolytes wnl, monitor -Diabetic diet Prophylaxis -Heparin SQ 5k units q8h for DVT -No GI required Disposition -DNR/DNI -Continues to require IV abx with possible blood transfusion today Janeth Dickinson [id number] Visit type - Emergency Visit Emergency Visit: Yes ED Registration Date: 09/18/18 Care time: The patient presented to the Emergency Department on the above date and was hospitalized for further evaluation of their emergent condition. - New Patient This patient is new to me today: No - Critical Care Critical Care patient: No
--- NOTE | 2018-09-19 12:41 | PN ---
Progress Note (short form) - Note Progress Note: no fevers nonproductive cough feels lousy swelling of legs, chronic pain in his kidneys Vital Signs Period Temp Pulse Resp BP Sys/Guo Pulse Ox Last 24 Hr 98.0 F-99.3 F 78-80 20-20 121-139/48-98 94 cor-rrr lungs decreased bs at bases abd soft,nt ext +edema CBC, BMP 09/19/18 06:00 09/19/18 06:00 Microbiology 09/17/18 22:57 Blood - Peripheral Venous Blood Culture - Preliminary NO GROWTH OBTAINED AFTER 24 HOURS, INCUBATION TO CONTINUE FOR 4 DAYS. 09/17/18 22:57 Blood - Peripheral Venous Blood Culture - Preliminary NO GROWTH OBTAINED AFTER 24 HOURS, INCUBATION TO CONTINUE FOR 4 DAYS. 09/18/18 07:00 Urine For Antigen Detection Legionella Antigen - Final- negative 09/18/18 07:00 Urine For Antigen Detection Streptococcus pneumoniae Antigen (M - Final-negative a/p HAP- continue meropenem d/c levaquin f/u cultures starla/ckd- worsening renal function -f/u with renal
--- NOTE | 2018-09-19 13:17 | PN ---
Progress Note, Physician History of Present Illness: Pt seen and examined at bedside. He still has cough. He has poor appetite. He denies dysuria. - Current Medication List Current Medications: Active Medications Aspirin (Asa -) 81 mg PO DAILY [facility] Last Admin: 09/19/18 09:51 Dose: 81 mg Atorvastatin Calcium (Lipitor -) 80 mg PO HS [facility] Last Admin: 09/18/18 22:38 Dose: 80 mg Carvedilol (Coreg -) 25 mg PO BID [facility] Last Admin: 09/19/18 09:51 Dose: 25 mg Heparin Sodium (Porcine) (Heparin -) 5,000 unit SQ TID [facility] Last Admin: 09/19/18 07:19 Dose: Not Given Meropenem 500 mg/ Dextrose 100 mls @ 200 mls/hr IVPB Q8H-IV [facility] Last Admin: 09/19/18 12:44 Dose: 200 mls/hr Insulin Aspart (Novolog Vial Sliding Scale -) 1 vial SQ ACHS [facility]; Protocol Last Admin: 09/19/18 12:45 Dose: 2 units Nitroglycerin (Nitro-Dur Patch -) 0.4 mg TD DAILY [facility] Last Admin: 09/19/18 09:52 Dose: 0.4 mg Nitroglycerin (Nitrostat -) 0.4 mg SL Q5M PRN PRN Reason: CHEST PAIN Non-Formulary Medication (Exenatide [Byetta]) 10 mcg SQ BID [facility] Nystatin (Mycostatin Cream -) 1 applic TP BID [facility] Last Admin: 09/19/18 09:52 Dose: 1 applic Oxycodone HCl (Roxicodone -) 10 mg PO Q4H PRN PRN Reason: PAIN Last Admin: 09/19/18 12:43 Dose: 10 mg Oxycodone HCl (Oxycontin -) 10 mg PO Q6H PRN PRN Reason: PAIN LEVEL 7 - 10 - Objective Vital Signs: Vital Signs Temperature 98.1 F 09/19/18 06:00 Pulse Rate 78 09/19/18 06:00 Respiratory Rate 20 09/19/18 06:00 Blood Pressure 139/78 09/19/18 06:00 O2 Sat by Pulse Oximetry (%) 94 L 09/18/18 21:00 Constitutional: Yes: Anxious, Mild Distress Eyes: Yes: Conjunctiva Clear Cardiovascular: Yes: S1, S2 Respiratory: Yes: On Nasal O2 Gastrointestinal: Yes: Soft, Abdomen, Obese Genitourinary: Yes: WNL Musculoskeletal: Yes: WNL Edema: Yes Edema: LLE: 2+, RLE: 2+ Neurological: Yes: Oriented Psychiatric: Yes: Oriented Labs: CBC, BMP 09/19/18 06:00 09/19/18 06:00 INR, PTT INR 1.27 (0.83-1.09) H 09/19/18 06:00 Problem List - Problems (1) VILLA (acute kidney injury) Code(s): N17.9 - ACUTE KIDNEY FAILURE, UNSPECIFIED (2) CKD (chronic kidney disease) Code(s): N18.9 - CHRONIC KIDNEY DISEASE, UNSPECIFIED Assessment/Plan Current Medications Generic Name Dose Route Start Last Admin Trade Name Freq PRN Reason Stop Dose Admin Aspirin 81 mg 09/18/18 10:00 09/19/18 09:51 Asa - PO 81 mg DAILY [facility] Administration Atorvastatin Calcium 80 mg 09/18/18 22:00 09/18/18 22:38 Lipitor - PO 80 mg HS [facility] Administration Carvedilol 25 mg 09/18/18 10:00 09/19/18 09:51 Coreg - PO 25 mg BID [facility] Administration Heparin Sodium (Porcine) 5,000 unit 09/18/18 06:00 09/19/18 07:19 Heparin - SQ Not Given TID [facility] Meropenem 500 mg/ Dextrose 100 mls @ 200 mls/hr 09/18/18 15:00 09/19/18 12:44 IVPB 200 mls/hr Q8H-IV [facility] Administration Insulin Aspart 1 vial 09/18/18 07:00 09/19/18 12:45 Novolog Vial Sliding Scale - SQ 2 units ACHS [facility] Administration Protocol Nitroglycerin 0.4 mg 09/18/18 10:00 09/19/18 09:52 Nitro-Dur Patch - TD 0.4 mg DAILY [facility] Administration Nitroglycerin 0.4 mg 09/18/18 03:08 Nitrostat - SL Q5M PRN CHEST PAIN Non-Formulary Medication 10 mcg 09/18/18 10:00 Exenatide [Byetta] SQ BID [facility] Nystatin 1 applic 09/18/18 22:00 09/19/18 09:52 Mycostatin Cream - TP 1 applic BID [facility] Administration Oxycodone HCl 10 mg 09/18/18 09:07 09/19/18 12:43 Roxicodone - PO 10 mg Q4H PRN Administration PAIN Oxycodone HCl 10 mg 09/19/18 11:15 Oxycontin - PO Q6H PRN PAIN LEVEL 7 - 10 Impression 1. VILLA 2. hyperkalemia 3. ckd 4. fluid overload 5. cad 6. dm 7. PNA Plan - renal function is worsening - diuretics have been on hold - encourage PO intake - may need fluids if he is not eating - monitor weights
--- NOTE | 2018-09-19 14:01 | PN ---
Teaching Attending Note Name of Resident: Janeth Dickinson ATTENDING PHYSICIAN STATEMENT I saw and evaluated the patient. I reviewed the resident's note and discussed the case with the resident. I agree with the resident's findings and plan as documented with exceptions below. SUBJECTIVE: Patient seen and examined. reports breathing better, urinating, no new fevers/ chills. Reports generalized pain and wants to be pain free. OBJECTIVE: Vital Signs Period Temp Pulse Resp BP Sys/Guo Pulse Ox Last 24 Hr 98.0 F-98.2 F 78-80 20-20 123-139/76-98 94 Intake & Output 09/16/18 09/17/18 09/18/18 09/19/18 23:59 23:59 23:59 23:59 Intake Total 500 Output Total 750 Balance -250 Weight 225 lb 241 lb General: sitting in bed, able to talk in full sentences Chest: few basilar rales Abdomen:Soft obese, NT throughout Extremities 3+ pedal pitting edema Home Medications Medication Instructions Recorded Aspirin [ASA -] 81 mg PO DAILY 09/20/15 Atorvastatin Ca [Lipitor] 80 mg PO HS 09/20/15 Carvedilol 25 mg PO BID 09/20/15 Cholecalciferol (Vitamin D3) 2,000 unit PO DAILY 09/20/15 [D3-2000] Insulin (Levemir) [Levemir Vial] 70 unit SQ BID 09/20/15 Nitroglycerin Sublingual 0.4 mg SL [id number] PRN #30 tab 10/07/16 [Nitrostat -] Exenatide [Byetta] 10 mcg SQ BID 02/14/17 oxyCODONE HCL [Roxicodone -] 10 mg PO Q4H PRN 02/14/17 Krill/Om-3/Dha/Epa/Phospho/Ast 1 each PO BID 11/22/17 [Krill Oil 500 mg Softgel] Multivit-Min/FA/Lycopen/Lutein 1 each PO DAILY 11/22/17 [Centrum Silver Men Tablet] Nitroglycerin Patch [Nitro-Dur 0.4 mg TD DAILY 11/22/17 Patch -] Furosemide [Lasix -] 60 mg PO DAILY #60 tablet 01/26/18 Ferrous Sulfate [Iron] 325 mg PO DAILY 07/27/18 [place]-3 Acid Ethyl Esters [Lovaza 1,000 mg PO HS 07/27/18 -] Ascorbic Acid [Vitamin C -] 500 mg PO DAILY tablet 09/15/18 hydrALAZINE HCL [Apresoline -] 50 mg PO BID #60 tablet 09/15/18 Active Medications Aspirin (Asa -) 81 mg PO DAILY [facility] Last Admin: 09/19/18 09:51 Dose: 81 mg Atorvastatin Calcium (Lipitor -) 80 mg PO HS [facility] Last Admin: 09/18/18 22:38 Dose: 80 mg Carvedilol (Coreg -) 25 mg PO BID [facility] Last Admin: 09/19/18 09:51 Dose: 25 mg Heparin Sodium (Porcine) (Heparin -) 5,000 unit SQ TID [facility] Last Admin: 09/19/18 07:19 Dose: Not Given Meropenem 500 mg/ Dextrose 100 mls @ 200 mls/hr IVPB Q8H-IV [facility] Last Admin: 09/19/18 12:44 Dose: 200 mls/hr Insulin Aspart (Novolog Vial Sliding Scale -) 1 vial SQ ACHS [facility]; Protocol Last Admin: 09/19/18 12:45 Dose: 2 units Nitroglycerin (Nitro-Dur Patch -) 0.4 mg TD DAILY [facility] Last Admin: 09/19/18 09:52 Dose: 0.4 mg Nitroglycerin (Nitrostat -) 0.4 mg SL Q5M PRN PRN Reason: CHEST PAIN Non-Formulary Medication (Exenatide [Byetta]) 10 mcg SQ BID [facility] Nystatin (Mycostatin Cream -) 1 applic TP BID [facility] Last Admin: 09/19/18 09:52 Dose: 1 applic Oxycodone HCl (Roxicodone -) 10 mg PO Q4H PRN PRN Reason: PAIN Last Admin: 09/19/18 12:43 Dose: 10 mg Oxycodone HCl (Oxycontin -) 10 mg PO Q6H PRN PRN Reason: PAIN LEVEL 7 - 10 Laboratory Results - last 24 hr 09/18/18 09/18/18 09/18/18 10:00 16:14 18:00 WBC RBC Hgb Hct MCV MCH MCHC RDW Plt Count MPV PT with INR INR PTT (Actin FS) Sodium Potassium Chloride Carbon Dioxide Anion Gap BUN Creatinine Creat Clearance w eGFR POC Glucometer 187 Random Glucose Calcium Phosphorus Magnesium Iron 20 L TIBC 243 L Iron Saturation 8 L Transferrin 186 L Random Vancomycin < 0.8 L 09/18/18 09/19/18 09/19/18 21:47 06:00 06:00 WBC 14.5 H RBC 2.38 L Hgb 7.1 L Hct 21.1 L MCV 88.5 MCH 29.8 MCHC 33.7 RDW 15.6 Plt Count 187 MPV 8.2 PT with INR 15.00 H INR 1.27 H PTT (Actin FS) 28.1 Sodium Potassium Chloride Carbon Dioxide Anion Gap BUN Creatinine Creat Clearance w eGFR POC Glucometer 179 Random Glucose Calcium Phosphorus Magnesium Iron TIBC Iron Saturation Transferrin Random Vancomycin 09/19/18 09/19/18 09/19/18 06:00 06:49 12:03 WBC RBC Hgb Hct MCV MCH MCHC RDW Plt Count MPV PT with INR INR PTT (Actin FS) Sodium 139 Potassium 4.5 Chloride 104 Carbon Dioxide 25 Anion Gap 10 BUN 105 H* Creatinine 4.6 H Creat Clearance w eGFR 12.85 POC Glucometer 142 195 Random Glucose 116 H Calcium 8.7 Phosphorus 5.6 H Magnesium 2.8 H Iron TIBC Iron Saturation Transferrin Random Vancomycin Microbiology 09/17/18 22:57 Blood - Peripheral Venous Blood Culture - Preliminary NO GROWTH OBTAINED AFTER 24 HOURS, INCUBATION TO CONTINUE FOR 4 DAYS. 09/17/18 22:57 Blood - Peripheral Venous Blood Culture - Preliminary NO GROWTH OBTAINED AFTER 24 HOURS, INCUBATION TO CONTINUE FOR 4 DAYS. 09/18/18 07:00 Urine For Antigen Detection Legionella Antigen - Final 09/18/18 07:00 Urine For Antigen Detection Streptococcus pneumoniae Antigen (M - Final CT chest results reviewed ASSESSMENT AND PLAN: 67 year old M with h/o DM2, CAD (s/p 4V CABG 2015 at [facility]), diastolic CHF, CKD Stage IV, TIA, HTN, internal hemorrhoids, testicular cancer in remission, recently admitted with VILLA/hyperkalemia/Volume overload s/p diuresis, readmitted with dyspnea, found with LLL HAP and VILLA on CKD stage IV. -LLL HAP -VILLA on CKD stage IV (cr prior to recent admit baseline 2) -Acute on chronic anemia, suspect multifactorial from renal disease/iron deficiency/infection/intermittent blood loss from haemorrhoids -IDDM -Chronic diastolic heart failure -IDDM -HTN -CAD s/p CABG 2015 -TIA -Testicular cancer in remission Plan: Extensive discussion with patient. Patient expressing frustration about being in pain and requesting comfort measures. Reiterates DNR/DNI, also states that does not want any additional testing, treatment, dialysis but wants to focus on comfort and wants to be pain free, wants to in peace. Denies any current depression or SI, patient strongly denies the same ("Catherine a bottle full of oxycodone at home but have never felt like ending it, I am not suicidal, I just am tired of all the testing and want to be comfortable and pain free". Discussed possible home hospice option, patient amenable to the same. Discussed with [place] from palliative care, will follow up Aztreonam for now, ID input appreciated. Renal input noted. Discuss PRBC tranfusion with renal pending goals of care, if patient agreable. ISS, for now. poor oral intake. Overall prognosis guarded Dispo planning pending goals of care discussion.
[2018-09-19] MEDS: oxyCODONE HCL 10 MG SUSTAINED ACTING TABLET PO PRN (16:06)
[2018-09-19] MEDS: ATORVASTATIN CA 80 MG TABLET (FP) PO SCH (22:45)
[2018-09-20] MEDS: MEROPENEM 500 MG in DEXTROSE 5%-WATER 100 ML IVPB SCH ×3 (01:48→18:09)
[2018-09-20] MEDS: oxyCODONE HCL 5 MG TABLET PO PRN ×2 (06:34→15:03)
[2018-09-20] MEDS: INSULIN SLIDING SCALE (NOVOLOG) 1 VIAL SQ SCH ×4 (06:36→21:51)
[2018-09-20] MEDS: HEPARIN NA (PORCINE) 5,000 UNITS/ML 1ML VIAL SQ SCH ×3 (06:43→21:29)
[2018-09-20 08:46] LABS: HEMATOCRIT 22.7 % (35.4-49); MCHC 35.2 g/dl (32.0-35.9); MEAN PLT VOLUME 7.9 fl (7.5-11.1); PLATELET COUNT 220 K/MM3 (134-434); RBC 2.58 M/mm3 (4.00-5.60); RDW 14.9 % (11.9-15.9); WHITE BLOOD COUNT 10.8 K/mm3 (4.0-10.0)
[2018-09-20 09:37] LABS: ANION GAP 8 MMOL/L (8-16); BLOOD UREA NITROGEN 101 mg/dL (7-18); CALCIUM 8.4 mg/dL (8.5-10.1); CHLORIDE 102 mmol/L (98-107); CO2 27 mmol/L (21-32); CREATININE 4.5 mg/dL (0.55-1.3); GLUCOSE,RANDOM 142 mg/dL (74-106); MAGNESIUM 3.1 mg/dL (1.8-2.4); PHOSPHOROUS 5.2 mg/dL (2.5-4.9); POTASSIUM 4.5 mmol/L (3.5-5.1); SODIUM 136 mmol/L (136-145)
[2018-09-20] MEDS ORDERED: ONDANSETRON 4 MG/2 ML VIAL IVPUSH PRN (09:38)
--- NOTE | 2018-09-20 09:38 | PN ---
Physical Exam: SUBJECTIVE: Patient seen and examined by me at bedside Patient had two episodes of nonbloody vomiting. However, states he feels better after throwing up. Patient reports he feels better and more at ease today after speaking to reverend Jones. Patient wants hospice care and is waiting for placement. Otherwise, denies any fever, chills, chest pain, palpitations, headaches, dizziness, urinary or bowel symptoms. OBJECTIVE: Vital Signs Period Temp Pulse Resp BP Sys/Guo Pulse Ox Last 24 Hr 98.0 F-98.5 F 59-69 20-20 130-138/49-63 96-99 GENERAL: The patient is awake, alert, and fully oriented, in no acute distress. EYES: Sclera anicteric, conjunctiva clear. No ptosis. ENT: Moist mucous membranes. LUNGS: Decreased breath sounds throughout lung bases with no wheezes, no crackles, no accessory muscle use. HEART: Regular rate and rhythm, normal s1 and s2, without murmur, rub or gallop. ABDOMEN: Soft, nontender, nondistended, normoactive bowel sounds, no guarding, no rebound. EXTREMITIES: 2-3+ edema bilateral LE Laboratory Results 09/20/18 08:25 Active Medications Generic Name Dose Route Start Last Admin Trade Name Freq PRN Reason Stop Dose Admin Aspirin 81 mg 09/18/18 10:00 09/19/18 09:51 Asa - PO 81 mg DAILY [facility] Administration Atorvastatin Calcium 80 mg 09/18/18 22:00 09/19/18 22:45 Lipitor - PO 80 mg HS [facility] Administration Carvedilol 25 mg 09/18/18 10:00 09/19/18 22:45 Coreg - PO 25 mg BID [facility] Administration Heparin Sodium (Porcine) 5,000 unit 09/18/18 06:00 09/20/18 06:43 Heparin - SQ Not Given TID [facility] Meropenem 500 mg/ Dextrose 100 mls @ 200 mls/hr 09/18/18 15:00 09/20/18 01:48 IVPB 200 mls/hr Q8H-IV [facility] Administration Insulin Aspart 1 vial 09/18/18 07:00 09/20/18 06:36 Novolog Vial Sliding Scale - SQ 2 units ACHS [facility] Administration Protocol Nitroglycerin 0.4 mg 09/18/18 10:00 09/19/18 09:52 Nitro-Dur Patch - TD 0.4 mg DAILY [facility] Administration Nitroglycerin 0.4 mg 09/18/18 03:08 Nitrostat - SL Q5M PRN CHEST PAIN Non-Formulary Medication 10 mcg 09/18/18 10:00 Exenatide [Byetta] SQ BID [facility] Nystatin 1 applic 09/18/18 22:00 09/19/18 23:14 Mycostatin Cream - TP Not Given BID [facility] Oxycodone HCl 10 mg 09/18/18 09:07 09/20/18 06:34 Roxicodone - PO 10 mg Q4H PRN Administration PAIN Oxycodone HCl 10 mg 09/19/18 11:15 09/19/18 16:06 Oxycontin - PO 10 mg Q6H PRN Administration PAIN LEVEL 7 - 10 ASSESSMENT/PLAN: Patient is a 67 year old male who presented with a cough for 2 days associated with altered mental status, concerning for pneumonia. Patient admitted for further monitoring and management. Sepsis Secondary to Healthcare Acquired Pneumonia -Meropenem 1gm Q8H IVPB (Day #3) -Blood cultures NGTD -Legionella negative -HOB -Aspiration precaution -Tylenol PRN for fevers VILLA on CKD -Lasix held, as per nephro -Daily weights with strict I&O's -Avoid nephrotoxic medications and renally dose medications -Continue daily BMP's Anemia of Chronic Disease -Patient in inflammatory state due to PNA and CKD but cannot rule out iron deficiency. -Hgb improved today to 8.0. Will continue to monitor for PRBC -Has a history of bleeding internal hemmorhoids -Continue to monitor CBC daily IDDMII -Will resume Levemir 30 units HS -ISS -BGM HTN -Continue Coreg 25mg BID -Continue to monitor BP Diastolic CHF -In no acute exacerbation -Continue to hold Lasix, As per Nephro -Continue Coreg HLD -Continue Lipitor 80mg HS CAD -Continue ASA 81mg daily -Continue Coreg 25mg BID -Continue Lipitor 80 mg HS F/E/N -On fluids indicated -Electrolytes wnl, monitor -Diabetic diet Prophylaxis -Heparin SQ 5k units q8h for DVT -No GI required Disposition -DNR/DNI -Continues to require IV abx. Nausea and vomiting today with Zofran ordered Janeth Hijaz, [id number] Visit type - Emergency Visit Emergency Visit: Yes ED Registration Date: 09/18/18 Care time: The patient presented to the Emergency Department on the above date and was hospitalized for further evaluation of their emergent condition. - New Patient This patient is new to me today: No - Critical Care Critical Care patient: No
[2018-09-20] MEDS ORDERED: PT OWN MED DRAWER 7, Y5N ONE ×2 (10:27→18:05)
[2018-09-20] MEDS: oxyCODONE HCL 10 MG SUSTAINED ACTING TABLET PO PRN ×2 (10:31→21:50)
[2018-09-20] MEDS: NYSTATIN 100,000 UNIT/GM TOPICAL CREAM 15 GM TUBE TP SCH ×2 (10:37→21:30)
[2018-09-20] MEDS: ASPIRIN 81 MG CHEWABLE TABLETS PO SCH (10:37)
[2018-09-20] MEDS: CARVEDILOL 25 MG TABLET (FP) PO SCH ×2 (10:37→21:51)
[2018-09-20] MEDS: NITROGLYCERIN 0.4 MG/HOUR TD PATCH TD SCH (10:37)
--- NOTE | 2018-09-20 11:03 | PN ---
Teaching Attending Note Name of Resident: Janeth Dickinson ATTENDING PHYSICIAN STATEMENT I saw and evaluated the patient. I reviewed the resident's note and discussed the case with the resident. I agree with the resident's findings and plan as documented with exceptions below. SUBJECTIVE: Patient seen and examined. nauseous last night and this AM, reports an episode of scant non bloody vomitus last night, none today. Pain better controlled. No new abdominal or urinary symptoms. OBJECTIVE: Vital Signs Period Temp Pulse Resp BP Sys/Guo Pulse Ox Last 24 Hr 98.0 F-98.5 F 59-69 20-20 130-138/49-63 98-99 Intake & Output 09/17/18 09/18/18 09/19/18 09/20/18 23:59 23:59 23:59 23:59 Intake Total 500 1120 100 Output Total 750 50 Balance -250 1120 50 Weight 225 lb 241 lb General: sitting at edge of bed, no acute distress Chest: bibasilar rales Abdomen:Soft, distended, NT Extremities 2+ pedal edema Home Medications Medication Instructions Recorded Aspirin [ASA -] 81 mg PO DAILY 09/20/15 Atorvastatin Ca [Lipitor] 80 mg PO HS 09/20/15 Carvedilol 25 mg PO BID 09/20/15 Cholecalciferol (Vitamin D3) 2,000 unit PO DAILY 09/20/15 [D3-2000] Insulin (Levemir) [Levemir Vial] 70 unit SQ BID 09/20/15 Nitroglycerin Sublingual 0.4 mg SL [id number] PRN #30 tab 10/07/16 [Nitrostat -] Exenatide [Byetta] 10 mcg SQ BID 02/14/17 oxyCODONE HCL [Roxicodone -] 10 mg PO Q4H PRN 02/14/17 Krill/Om-3/Dha/Epa/Phospho/Ast 1 each PO BID 11/22/17 [Krill Oil 500 mg Softgel] Multivit-Min/FA/Lycopen/Lutein 1 each PO DAILY 11/22/17 [Centrum Silver Men Tablet] Nitroglycerin Patch [Nitro-Dur 0.4 mg TD DAILY 11/22/17 Patch -] Furosemide [Lasix -] 60 mg PO DAILY #60 tablet 01/26/18 Ferrous Sulfate [Iron] 325 mg PO DAILY 07/27/18 [place]-3 Acid Ethyl Esters [Lovaza 1,000 mg PO HS 07/27/18 -] Ascorbic Acid [Vitamin C -] 500 mg PO DAILY tablet 09/15/18 hydrALAZINE HCL [Apresoline -] 50 mg PO BID #60 tablet 09/15/18 Active Medications Aspirin (Asa -) 81 mg PO DAILY [facility] Last Admin: 09/20/18 10:37 Dose: 81 mg Atorvastatin Calcium (Lipitor -) 80 mg PO HS [facility] Last Admin: 09/19/18 22:45 Dose: 80 mg Carvedilol (Coreg -) 25 mg PO BID [facility] Last Admin: 09/20/18 10:37 Dose: 25 mg Heparin Sodium (Porcine) (Heparin -) 5,000 unit SQ TID [facility] Last Admin: 09/20/18 06:43 Dose: Not Given Meropenem 500 mg/ Dextrose 100 mls @ 200 mls/hr IVPB Q8H-IV [facility] Last Admin: 09/20/18 10:35 Dose: 200 mls/hr Insulin Aspart (Novolog Vial Sliding Scale -) 1 vial SQ ACHS [facility]; Protocol Last Admin: 09/20/18 06:36 Dose: 2 units Nitroglycerin (Nitro-Dur Patch -) 0.4 mg TD DAILY [facility] Last Admin: 09/20/18 10:37 Dose: 0.4 mg Nitroglycerin (Nitrostat -) 0.4 mg SL Q5M PRN PRN Reason: CHEST PAIN Non-Formulary Medication (Exenatide [Byetta]) 10 mcg SQ BID [facility] Nystatin (Mycostatin Cream -) 1 applic TP BID [facility] Last Admin: 09/20/18 10:37 Dose: Not Given Ondansetron HCl (Zofran Injection) 4 mg IVPUSH Q8H PRN PRN Reason: NAUSEA Last Admin: 09/20/18 10:33 Dose: 4 mg Oxycodone HCl (Roxicodone -) 10 mg PO Q4H PRN PRN Reason: PAIN Last Admin: 09/20/18 06:34 Dose: 10 mg Oxycodone HCl (Oxycontin -) 10 mg PO Q6H PRN PRN Reason: PAIN LEVEL 7 - 10 Last Admin: 09/20/18 10:31 Dose: 10 mg Laboratory Results - last 24 hr 09/19/18 09/19/18 09/19/18 12:03 17:27 21:01 WBC RBC Hgb Hct MCV MCH MCHC RDW Plt Count MPV Sodium Potassium Chloride Carbon Dioxide Anion Gap BUN Creatinine Creat Clearance w eGFR POC Glucometer 195 136 153 Random Glucose Calcium Phosphorus Magnesium 09/20/18 09/20/18 09/20/18 05:54 08:25 08:25 WBC 10.8 H RBC 2.58 L Hgb 8.0 L Hct 22.7 L MCV 88.0 MCH 31.0 MCHC 35.2 RDW 14.9 Plt Count 220 MPV 7.9 Sodium 136 Potassium 4.5 Chloride 102 Carbon Dioxide 27 Anion Gap 8 BUN 101 H Creatinine 4.5 H Creat Clearance w eGFR 13.18 POC Glucometer 177 Random Glucose 142 H Calcium 8.4 L Phosphorus 5.2 H Magnesium 3.1 H Microbiology 09/17/18 22:57 Blood - Peripheral Venous Blood Culture - Preliminary NO GROWTH OBTAINED AFTER 48 HOURS, INCUBATION TO CONTINUE FOR 3 DAYS. 09/17/18 22:57 Blood - Peripheral Venous Blood Culture - Preliminary NO GROWTH OBTAINED AFTER 48 HOURS, INCUBATION TO CONTINUE FOR 3 DAYS. 09/18/18 07:00 Urine For Antigen Detection Legionella Antigen - Final 09/18/18 07:00 Urine For Antigen Detection Streptococcus pneumoniae Antigen (M - Final ASSESSMENT AND PLAN: 67 year old M with h/o DM2, CAD (s/p 4V CABG 2015 at [facility]), diastolic CHF, CKD Stage IV, TIA, HTN, internal hemorrhoids, testicular cancer in remission, recently admitted with VILLA/hyperkalemia/Volume overload s/p diuresis, readmitted with dyspnea, found with LLL HAP and VILLA on CKD stage IV. -LLL HAP -VILLA on CKD stage IV (cr prior to recent admit baseline 2) -Acute on chronic anemia, suspect multifactorial from renal disease/iron deficiency/infection/intermittent blood loss from haemorrhoids -Nasuea, vomiting, ?From opioids vs uremia vs GERD -IDDM -Chronic diastolic heart failure -IDDM -HTN -CAD s/p CABG 2016 -TIA -Testicular cancer in remission Plan: Palliative care input noted. DNR/DNI, no feeding tubes or aggressive intervention. Wants antibiotics to help with symptoms of dyspnea. Social work arranging for home hospice. Continue meropenem, taper per ID. Declines HD, Volume status difficult to manage with progressive renal deterioration and overall poor oral intake. Overall prognosis guarded at this stage. Place on zofran/PPI for nausea for now. ISS, diabetic diet. Dispo plan for d/c home with hospice pending abx completion/ID input. Address inpatient hospice vs transition to full comfort measures if clinically deteriorates, based on patient's current expressed wishes.
[2018-09-20] MEDS ORDERED: INSULIN (NOVOLOG) ASPART 100 UNITS/ML 10ML VIAL ONE (11:54)
--- NOTE | 2018-09-20 15:02 | PN ---
Progress Note, Physician History of Present Illness: Pt seen and examined at bedside. Cough is improving. - Current Medication List Current Medications: Active Medications Aspirin (Asa -) 81 mg PO DAILY [facility] Last Admin: 09/20/18 10:37 Dose: 81 mg Atorvastatin Calcium (Lipitor -) 80 mg PO HS [facility] Last Admin: 09/19/18 22:45 Dose: 80 mg Carvedilol (Coreg -) 25 mg PO BID [facility] Last Admin: 09/20/18 10:37 Dose: 25 mg Heparin Sodium (Porcine) (Heparin -) 5,000 unit SQ TID [facility] Last Admin: 09/20/18 13:31 Dose: Not Given Meropenem 500 mg/ Dextrose 100 mls @ 200 mls/hr IVPB Q8H-IV [facility] Last Admin: 09/20/18 10:35 Dose: 200 mls/hr Insulin Aspart (Novolog Vial Sliding Scale -) 1 vial SQ ACHS [facility]; Protocol Last Admin: 09/20/18 11:55 Dose: 2 units Nitroglycerin (Nitro-Dur Patch -) 0.4 mg TD DAILY [facility] Last Admin: 09/20/18 10:37 Dose: 0.4 mg Nitroglycerin (Nitrostat -) 0.4 mg SL Q5M PRN PRN Reason: CHEST PAIN Non-Formulary Medication (Exenatide [Byetta]) 10 mcg SQ BID [facility] Nystatin (Mycostatin Cream -) 1 applic TP BID [facility] Last Admin: 09/20/18 10:37 Dose: Not Given Ondansetron HCl (Zofran Injection) 4 mg IVPUSH Q8H PRN PRN Reason: NAUSEA Last Admin: 09/20/18 10:33 Dose: 4 mg Oxycodone HCl (Roxicodone -) 10 mg PO Q4H PRN PRN Reason: PAIN Last Admin: 09/20/18 06:34 Dose: 10 mg Oxycodone HCl (Oxycontin -) 10 mg PO Q6H PRN PRN Reason: PAIN LEVEL 7 - 10 Last Admin: 09/20/18 10:31 Dose: 10 mg - Objective Vital Signs: Vital Signs Temperature 98.3 F 09/20/18 14:18 Pulse Rate 62 09/20/18 14:18 Respiratory Rate 20 09/20/18 14:18 Blood Pressure 133/59 L 09/20/18 14:18 O2 Sat by Pulse Oximetry (%) 98 09/20/18 10:00 Constitutional: Yes: Anxious Cardiovascular: Yes: S1, S2 Respiratory: Yes: On Nasal O2 Gastrointestinal: Yes: Normal Bowel Sounds, Soft, Abdomen, Obese Genitourinary: Yes: WNL Musculoskeletal: Yes: WNL Edema: Yes Edema: LLE: 2+, RLE: 2+ Neurological: Yes: Oriented Psychiatric: Yes: Oriented Labs: CBC, BMP 09/20/18 08:25 09/20/18 08:25 INR, PTT INR 1.27 (0.83-1.09) H 09/19/18 06:00 Problem List - Problems (1) VILLA (acute kidney injury) Code(s): N17.9 - ACUTE KIDNEY FAILURE, UNSPECIFIED (2) CKD (chronic kidney disease) Code(s): N18.9 - CHRONIC KIDNEY DISEASE, UNSPECIFIED Assessment/Plan Current Medications Generic Name Dose Route Start Last Admin Trade Name Freq PRN Reason Stop Dose Admin Aspirin 81 mg 09/18/18 10:00 09/20/18 10:37 Asa - PO 81 mg DAILY [facility] Administration Atorvastatin Calcium 80 mg 09/18/18 22:00 09/19/18 22:45 Lipitor - PO 80 mg HS [facility] Administration Carvedilol 25 mg 09/18/18 10:00 09/20/18 10:37 Coreg - PO 25 mg BID [facility] Administration Heparin Sodium (Porcine) 5,000 unit 09/18/18 06:00 09/20/18 13:31 Heparin - SQ Not Given TID [facility] Meropenem 500 mg/ Dextrose 100 mls @ 200 mls/hr 09/18/18 15:00 09/20/18 10:35 IVPB 200 mls/hr Q8H-IV [facility] Administration Insulin Aspart 1 vial 09/18/18 07:00 09/20/18 11:55 Novolog Vial Sliding Scale - SQ 2 units ACHS [facility] Administration Protocol Nitroglycerin 0.4 mg 09/18/18 10:00 09/20/18 10:37 Nitro-Dur Patch - TD 0.4 mg DAILY [facility] Administration Nitroglycerin 0.4 mg 09/18/18 03:08 Nitrostat - SL Q5M PRN CHEST PAIN Non-Formulary Medication 10 mcg 09/18/18 10:00 Exenatide [Byetta] SQ BID [facility] Nystatin 1 applic 09/18/18 22:00 09/20/18 10:37 Mycostatin Cream - TP Not Given BID [facility] Ondansetron HCl 4 mg 09/20/18 09:38 09/20/18 10:33 Zofran Injection IVPUSH 4 mg Q8H PRN Administration NAUSEA Oxycodone HCl 10 mg 09/18/18 09:07 09/20/18 06:34 Roxicodone - PO 10 mg Q4H PRN Administration PAIN Oxycodone HCl 10 mg 09/19/18 11:15 09/20/18 10:31 Oxycontin - PO 10 mg Q6H PRN Administration PAIN LEVEL 7 - 10 Impression 1. VILLA 2. hyperkalemia 3. ckd 4. fluid overload 5. cad 6. dm 7. PNA Plan - renal function is improving - repeat labs in am - hold diuretics for now - abx per ID - encourage PO intake - may need fluids if he is not eating
--- NOTE | 2018-09-20 16:04 | PN ---
Progress Note, Physician History of Present Illness: AWAKE, ALERT SEATED IN BED TEMPS/ WBC IMPROVED - Current Medication List Current Medications: Active Medications Aspirin (Asa -) 81 mg PO DAILY [facility] Last Admin: 09/20/18 10:37 Dose: 81 mg Atorvastatin Calcium (Lipitor -) 80 mg PO HS [facility] Last Admin: 09/19/18 22:45 Dose: 80 mg Carvedilol (Coreg -) 25 mg PO BID [facility] Last Admin: 09/20/18 10:37 Dose: 25 mg Heparin Sodium (Porcine) (Heparin -) 5,000 unit SQ TID [facility] Last Admin: 09/20/18 13:31 Dose: Not Given Meropenem 500 mg/ Dextrose 100 mls @ 200 mls/hr IVPB Q8H-IV [facility] Last Admin: 09/20/18 10:35 Dose: 200 mls/hr Insulin Aspart (Novolog Vial Sliding Scale -) 1 vial SQ ACHS [facility]; Protocol Last Admin: 09/20/18 11:55 Dose: 2 units Nitroglycerin (Nitro-Dur Patch -) 0.4 mg TD DAILY [facility] Last Admin: 09/20/18 10:37 Dose: 0.4 mg Nitroglycerin (Nitrostat -) 0.4 mg SL Q5M PRN PRN Reason: CHEST PAIN Non-Formulary Medication (Exenatide [Byetta]) 10 mcg SQ BID [facility] Nystatin (Mycostatin Cream -) 1 applic TP BID [facility] Last Admin: 09/20/18 10:37 Dose: Not Given Ondansetron HCl (Zofran Injection) 4 mg IVPUSH Q8H PRN PRN Reason: NAUSEA Last Admin: 09/20/18 10:33 Dose: 4 mg Oxycodone HCl (Roxicodone -) 10 mg PO Q4H PRN PRN Reason: PAIN Last Admin: 09/20/18 15:03 Dose: 10 mg Oxycodone HCl (Oxycontin -) 10 mg PO Q6H PRN PRN Reason: PAIN LEVEL 7 - 10 Last Admin: 09/20/18 10:31 Dose: 10 mg - Objective Vital Signs: Vital Signs Temperature 98.3 F 09/20/18 14:18 Pulse Rate 62 09/20/18 14:18 Respiratory Rate 20 09/20/18 14:18 Blood Pressure 133/59 L 09/20/18 14:18 O2 Sat by Pulse Oximetry (%) 98 09/20/18 10:00 Constitutional: Yes: Obese Eyes: Yes: Conjunctiva Clear Cardiovascular: Yes: Regular Rate and Rhythm, S1, S2 Respiratory: Yes: Rhonchi Gastrointestinal: Yes: Normal Bowel Sounds, Soft. No: Tenderness Labs: CBC, BMP 09/20/18 08:25 09/20/18 08:25 INR, PTT INR 1.27 (0.83-1.09) H 09/19/18 06:00 Assessment/Plan PNEUMONIA ?HCAP AZOTEMIA CONTINUE EMPIRIC MEROPENEM
[2018-09-20] MEDS: ATORVASTATIN CA 80 MG TABLET (FP) PO SCH (21:51)
[2018-09-21] MEDS: MEROPENEM 500 MG in DEXTROSE 5%-WATER 100 ML IVPB SCH (02:45)
[2018-09-21] MEDS: HEPARIN NA (PORCINE) 5,000 UNITS/ML 1ML VIAL SQ SCH ×2 (06:20→14:19)
[2018-09-21] MEDS: INSULIN SLIDING SCALE (NOVOLOG) 1 VIAL SQ SCH ×2 (06:32→11:55)
[2018-09-21 09:26] LABS: HEMATOCRIT 24.8 % (35.4-49); HEMOGLOBIN 8.5 GM/dL (11.7-16.9); MCH 30.3 pg (25.7-33.7); MCHC 34.2 g/dl (32.0-35.9); MEAN CELL VOLUME 88.7 fl (80-96); MEAN PLT VOLUME 7.8 fl (7.5-11.1); PLATELET COUNT 252 K/MM3 (134-434); RBC 2.79 M/mm3 (4.00-5.60); RDW 14.8 % (11.9-15.9)
--- NOTE | 2018-09-21 09:36 | PN ---
Progress Note, Physician History of Present Illness: AWAKE, ALERT SEATED IN BED C/O NAUSEA WITH EACH IV INFUSION STILL WITH COUGH, SCANT SPUTUM PRODUCTION TEMPS/ WBC IMPROVED - Current Medication List Current Medications: Active Medications Aspirin (Asa -) 81 mg PO DAILY [facility] Last Admin: 09/20/18 10:37 Dose: 81 mg Atorvastatin Calcium (Lipitor -) 80 mg PO HS [facility] Last Admin: 09/20/18 21:51 Dose: 80 mg Carvedilol (Coreg -) 25 mg PO BID [facility] Last Admin: 09/20/18 21:51 Dose: 25 mg Heparin Sodium (Porcine) (Heparin -) 5,000 unit SQ TID [facility] Last Admin: 09/21/18 06:20 Dose: Not Given Meropenem 500 mg/ Dextrose 100 mls @ 200 mls/hr IVPB Q8H-IV [facility] Last Admin: 09/21/18 02:45 Dose: 200 mls/hr Insulin Aspart (Novolog Vial Sliding Scale -) 1 vial SQ ACHS [facility]; Protocol Last Admin: 09/21/18 06:32 Dose: Not Given Nitroglycerin (Nitro-Dur Patch -) 0.4 mg TD DAILY [facility] Last Admin: 09/20/18 10:37 Dose: 0.4 mg Nitroglycerin (Nitrostat -) 0.4 mg SL Q5M PRN PRN Reason: CHEST PAIN Nystatin (Mycostatin Cream -) 1 applic TP BID [facility] Last Admin: 09/20/18 21:30 Dose: Not Given Ondansetron HCl (Zofran Injection) 4 mg IVPUSH Q8H PRN PRN Reason: NAUSEA Last Admin: 09/20/18 10:33 Dose: 4 mg Oxycodone HCl (Oxycontin -) 10 mg PO Q6H PRN PRN Reason: PAIN LEVEL 7 - 10 Last Admin: 09/20/18 21:50 Dose: 10 mg - Objective Vital Signs: Vital Signs Temperature 97.9 F 09/21/18 06:00 Pulse Rate 63 09/21/18 06:00 Respiratory Rate 18 09/21/18 06:00 Blood Pressure 133/50 L 09/21/18 06:00 O2 Sat by Pulse Oximetry (%) 95 09/20/18 21:00 Constitutional: Yes: No Distress, Obese Eyes: Yes: Conjunctiva Clear Cardiovascular: Yes: Regular Rate and Rhythm, S1, S2 Respiratory: Yes: CTA Bilaterally Gastrointestinal: Yes: Normal Bowel Sounds, Soft. No: Tenderness Edema: Yes Labs: CBC, BMP 09/21/18 09:08 INR, PTT INR 1.27 (0.83-1.09) H 09/19/18 06:00 Assessment/Plan PNEUMONIA ?HCAP FEVER/ LEUKOCYTOSIS-IMPROVED AZOTEMIA PCN ALLERGY DAY # 5 [facility]IC [facility] PO LEVAQUIN, ADJUSTED FOR RENAL FAILURE X 7 -10D
[2018-09-21] MEDS ORDERED: PT OWN MED DRAWER 7, Y5N ONE (09:56)
[2018-09-21] MEDS: CARVEDILOL 25 MG TABLET (FP) PO SCH (10:02)
[2018-09-21] MEDS: NYSTATIN 100,000 UNIT/GM TOPICAL CREAM 15 GM TUBE TP SCH (10:02)
[2018-09-21] MEDS: ASPIRIN 81 MG CHEWABLE TABLETS PO SCH (10:02)
[2018-09-21] MEDS: NITROGLYCERIN 0.4 MG/HOUR TD PATCH TD SCH (10:02)
[2018-09-21 10:06] LABS: ANION GAP 7 MMOL/L (8-16); BLOOD UREA NITROGEN 103 mg/dL (7-18); CALCIUM 8.9 mg/dL (8.5-10.1); CHLORIDE 104 mmol/L (98-107); CO2 28 mmol/L (21-32); CREATININE 4.1 mg/dL (0.55-1.3); GLUCOSE,RANDOM 128 mg/dL (74-106); MAGNESIUM 3.3 mg/dL (1.8-2.4); PHOSPHOROUS 5.1 mg/dL (2.5-4.9); POTASSIUM 4.7 mmol/L (3.5-5.1); SODIUM 139 mmol/L (136-145)
--- NOTE | 2018-09-21 12:37 | PN ---
Teaching Attending Note Name of Resident: Janeth Dickinson ATTENDING PHYSICIAN STATEMENT I saw and evaluated the patient. I reviewed the resident's note and discussed the case with the resident. I agree with the resident's findings and plan as documented with exceptions below. SUBJECTIVE: Patient seen and examined. Feels well, some nausea yesterday, none currently, Breathing improved, pain well controlled. OBJECTIVE: Vital Signs Period Temp Pulse Resp BP Sys/Guo Pulse Ox Last 24 Hr 97.9 F-98.6 F 61-68 18-20 132-157/46-79 95-95 Intake & Output 09/18/18 09/19/18 09/20/18 09/21/18 23:59 23:59 23:59 23:59 Intake Total 500 1120 1120 300 Output Total 750 50 Balance -250 1120 1070 300 Weight 241 lb General: sitting in wheelchair, no acute distress Chest: basilar rales Abdomen:Soft, obese, NT Extremities: unchanged edema Active Medications Aspirin (Asa -) 81 mg PO DAILY [facility] Last Admin: 09/21/18 10:02 Dose: 81 mg Atorvastatin Calcium (Lipitor -) 80 mg PO HS [facility] Last Admin: 09/20/18 21:51 Dose: 80 mg Carvedilol (Coreg -) 25 mg PO BID [facility] Last Admin: 09/21/18 10:02 Dose: 25 mg Heparin Sodium (Porcine) (Heparin -) 5,000 unit SQ TID [facility] Last Admin: 09/21/18 06:20 Dose: Not Given Insulin Aspart (Novolog Vial Sliding Scale -) 1 vial SQ [facility]; Protocol Last Admin: 09/21/18 11:55 Dose: Not Given Levofloxacin (Levaquin -) 250 mg PO Q2D@0600 [facility] Last Admin: 09/21/18 10:02 Dose: 250 mg Nitroglycerin (Nitro-Dur Patch -) 0.4 mg TD DAILY [facility] Last Admin: 09/21/18 10:02 Dose: 0.4 mg Nitroglycerin (Nitrostat -) 0.4 mg SL Q5M PRN PRN Reason: CHEST PAIN Nystatin (Mycostatin Cream -) 1 applic TP BID [facility] Last Admin: 09/21/18 10:02 Dose: 1 applic Ondansetron HCl (Zofran Injection) 4 mg IVPUSH Q8H PRN PRN Reason: NAUSEA Last Admin: 09/20/18 10:33 Dose: 4 mg Oxycodone HCl (Oxycontin -) 10 mg PO Q6H PRN PRN Reason: PAIN LEVEL 7 - 10 Last Admin: 09/20/18 21:50 Dose: 10 mg Laboratory Results - last 24 hr 09/20/18 09/20/18 09/21/18 17:25 21:00 06:32 WBC RBC Hgb Hct MCV MCH MCHC RDW Plt Count MPV Sodium Potassium Chloride Carbon Dioxide Anion Gap BUN Creatinine Creat Clearance w eGFR POC Glucometer 129 156 142 Random Glucose Calcium Phosphorus Magnesium 09/21/18 09/21/18 09/21/18 09:08 09:08 11:54 WBC 9.0 RBC 2.79 L Hgb 8.5 L Hct 24.8 L MCV 88.7 MCH 30.3 MCHC 34.2 RDW 14.8 Plt Count 252 MPV 7.8 Sodium 139 Potassium 4.7 Chloride 104 Carbon Dioxide 28 Anion Gap 7 L BUN 103 H Creatinine 4.1 H Creat Clearance w eGFR 14.67 POC Glucometer 150 Random Glucose 128 H Calcium 8.9 Phosphorus 5.1 H Magnesium 3.3 H Microbiology 09/17/18 22:57 Blood - Peripheral Venous Blood Culture - Preliminary NO GROWTH OBTAINED AFTER 72 HOURS, INCUBATION TO CONTINUE FOR 2 DAYS. 09/17/18 22:57 Blood - Peripheral Venous Blood Culture - Preliminary NO GROWTH OBTAINED AFTER 72 HOURS, INCUBATION TO CONTINUE FOR 2 DAYS. 09/18/18 07:00 Urine For Antigen Detection Legionella Antigen - Final 09/18/18 07:00 Urine For Antigen Detection Streptococcus pneumoniae Antigen (M - Final ASSESSMENT AND PLAN: 67 year old M with h/o DM2, CAD (s/p 4V CABG 2015 at [facility]), diastolic CHF, CKD Stage IV, TIA, HTN, internal hemorrhoids, testicular cancer in remission, recently admitted with VILLA/hyperkalemia/Volume overload s/p diuresis, readmitted with dyspnea, found with LLL HAP and VILLA on CKD stage IV. -LLL HAP -VILLA on CKD stage IV (cr prior to recent admit baseline 2) -Acute on chronic anemia, suspect multifactorial from renal disease/iron deficiency/infection/intermittent blood loss from haemorrhoids -Nasuea, vomiting, ?From opioids vs uremia vs GERD -IDDM -Chronic diastolic heart failure -IDDM -HTN -CAD s/p CABG 2016 -TIA -Testicular cancer in remission Plan: Palliative care input noted. DNR/DNI, no feeding tubes or aggressive intervention. Wants antibiotics to help with symptoms of dyspnea. Social work arranging for home hospice. ID input noted, levaquin renal dosing for 7 days Declines HD, Volume status difficult to manage with progressive renal deterioration and overall poor oral intake. Overall prognosis guarded at this stage. Place on zofran/PPI for nausea for now. ISS, diabetic diet. Dispo plan d/c home with hospice today, all arrangements made Plan discussed with patient in detail, all questions answered.
--- NOTE | 2018-09-21 13:24 | DS ---
Physical Exam: SUBJECTIVE: Patient seen and examined by me at bedside. Patient reports feeling much better. Was complaining of nausea whenever he receives IV antibiotics. States his breathing has improved significantly. Otherwise, denies any fever, chills, chest pain, palpitations, headaches, dizziness, urinary or bowel symptoms. OBJECTIVE: Vital Signs Period Temp Pulse Resp BP Sys/Guo Pulse Ox Last 24 Hr 97.9 F-98.6 F 61-68 18-20 132-157/46-79 95-95 PHYSICAL EXAM GENERAL: The patient is awake, alert, and fully oriented, in no acute distress. EYES: Sclera anicteric, conjunctiva clear. No ptosis. ENT: Moist mucous membranes. LUNGS: Decreased breath sounds throughout lung bases with fine rales throughout lung bases and no wheezes, no accessory muscle use. HEART: Regular rate and rhythm, normal s1 and s2, without murmur, rub or gallop. ABDOMEN: Soft, nontender, nondistended, normoactive bowel sounds, no guarding, no rebound. EXTREMITIES: 2+ edema bilaterally LE Laboratory Results 09/21/18 09:08 09/21/18 09:08 09/21/18 09:08 Phosphorus 5.1 H Magnesium 3.3 H Microbiology 09/17/18 22:57 Blood - Peripheral Venous Blood Culture - Preliminary NO GROWTH OBTAINED AFTER 72 HOURS, INCUBATION TO CONTINUE FOR 2 DAYS. 09/17/18 22:57 Blood - Peripheral Venous Blood Culture - Preliminary NO GROWTH OBTAINED AFTER 72 HOURS, INCUBATION TO CONTINUE FOR 2 DAYS. 09/18/18 07:00 Urine For Antigen Detection Legionella Antigen - Final 09/18/18 07:00 Urine For Antigen Detection Streptococcus pneumoniae Antigen (M - Final IMAGES: Chest CT (09/18/18): Evaluation of the lung valadez demonstrates dense consolidation within the left lower lobe. This is concerning for an acute pneumonia. Clinical correlation is advised. Less extensive atelectasis is seen at the right lung base. No pulmonary masses, additional areas of acute consolidation or pleural effusions are identified. Examination of the mediastinum demonstrates no evidence of mediastinal masses, fluid collections or significant lymphadenopathy. The heart is enlarged. The patient is S/P CABG procedure. Evaluation of the upper abdomen demonstrates enlargement of the right adrenal gland suspicious for a benign adenoma. There is no evidence of acute pathology. There is no evidence of acute bony abnormalities. IMPRESSION: 1. Dense consolidation left lower lobe concerning for acute pneumonia. Clinical correlation and follow-up recommended. 2. Right basilar atelectasis. 3. Cardiomegaly. 4. Suspected right adrenal adenoma. Please see above discussion. Chest X-Ray (09/17/18): Shallow inspiration. Cardiomegaly. Sternal wires. Status post anterior fusion at C7-T1. Left retrocardiac opacity likely on the basis of atelectasis or pneumonia. No airspace opacities are seen in the left upper lung zone, right lung. No large pleural effusion is seen. The pulmonary vasculature is normal. The visualized osseous structures appear intact. Impression. Left retrocardiac opacity concerning for the pneumonia or atelectasis. No evidence of CHF. No pneumothorax is seen. PRE-HOSPITAL COURSE: Patient is a 67 year old male with a PMHx of IDDMII, Diastolic CHF, CAD, CKD IV , HTN, HLD, anemia of chronic disease, who presented to the ED for two day of productive cough associated with worsening shortness of breath and altered mental status. In the ED, patient was found to be septic with fever of 100.7 F and leukocytosis >18. Chest CT was done and revealed Left lower lobe consolidation, consistent with acute pneumonia. Patient was admitted for further monitoring and management. HOSPITAL COURSE: Throughout hospitalization, patient was placed on IV Abx for Sepsis secondary to healthcare acquired pneumonia, as patient was hospitalized a week prior. Patient was started on IV Meropenem. Patient was also found to be in VILLA on CKD with his initial creatinine being 4.2 but was 3.7 a week prior on discharge. His Lasix was held, as per District Manager, with improved kidney function. His respiratory symptoms improved with the antibiotics and was afebrile more than 48 hours. Cultures and antigen for legionella were done and all negative. Patient continued to deny any aggressive measures such as dialysis. Requested to be DNR/DNI and wants to have comfort care and hospice care. Patient was approved for home hospice and is set up to have hospice nurse visit his house starting (09/22/18) with all equipments sent there. Patient will be discharged with present. Date of Admission:09/18/18 Date of Discharge: 09/21/18 Minutes to complete discharge: 45 Discharge Summary Reason For Visit: PNEUMONIA Current Active Problems HCAP (healthcare-associated pneumonia) (Acute) Sepsis (Acute) Condition: Guarded - Instructions Diet, Activity, Other Instructions: RECOMMENDATIONS: -You were seen here for a productive cough that worsened over a week associated with altered mental status. A CAT Scan of the chest was done and revealed Pneumonia. You were treated here for the pneumonia and cough. -You will be sent with a course of antibiotics. -You have requested to be in hospice after discharge. The equipment will be delivered to your house this afternoon and will be seen by a hospice nurse starting tomorrow (09/22/18). -If you experience any worsening symptoms such as severe shortness of breath or fevers >103 despite medications, call 911 and return to the emergency department. FOLLOW UP: -You will need to follow up with your primary care physician within a week. -You will also need to follow up with the District Manager (Kidney Doctor), Dr. Paulino, within a week for repeat labs and re-evaluation if you need to take Lasix -All Physician contact information will be in your discharge packet MEDICATIONS: -You will be on an antibiotic called Levaquin for the next 7 days. It has been sent to your pharmacy. Please pick it up. You will be taking it every two days for 7 days. -Your Hydralazine has been discontinued. Please do not take this medication -Your Lasix has also been placed on hold. Please follow up with your District Manager, Dr. Paulino, next week for repeat labs and to evaluate if Lasix needs to be resumed. -Your Insulin has been discontinued. Please check your sugar levels at home daily and resume accordingly. If you notice your sugar levels >300, Please call your primary care physician. -You may resume the rest of your home medications. Referrals: German Kurtz MD [Primary Care Provider] - Malcolm Paulino MD [Staff Physician] - Disposition: VNS/HOME HEALTH CARE - Home Medications Comprehensive Discharge Medication List: Ambulatory Orders Aspirin [ASA -] 81 mg PO DAILY 09/20/15 Atorvastatin Ca [Lipitor] 80 mg PO HS 09/20/15 Carvedilol 25 mg PO BID 09/20/15 Cholecalciferol (Vitamin D3) [D3-2000] 2,000 unit PO DAILY 09/20/15 Nitroglycerin Sublingual [Nitrostat -] 0.4 mg SL [id number] PRN #30 tab 10/07/16 Exenatide [Byetta] 10 mcg SQ BID 02/14/17 oxyCODONE HCL [Roxicodone -] 10 mg PO Q4H PRN 02/14/17 Krill/Om-3/Dha/Epa/Phospho/Ast [Krill Oil 500 mg Softgel] 1 each PO BID Multivit-Min/FA/Lycopen/Lutein [Centrum Silver Men Tablet] 1 each PO DAILY 11/22 Nitroglycerin Patch [Nitro-Dur Patch -] 0.4 mg TD DAILY 11/22/17 Ferrous Sulfate [Iron] 325 mg PO DAILY 07/27/18 [place]-3 Acid Ethyl Esters [Lovaza -] 1,000 mg PO HS 07/27/18 Ascorbic Acid [Vitamin C -] 500 mg PO DAILY tablet 09/15/18 levoFLOXacin [Levaquin -] 250 mg PO Q2D@0600 #4 tablet 09/21/18 This patient is new to me today: No Emergency Visit: Yes ED Registration Date: 09/18/18 Care time: The patient presented to the Emergency Department on the above date and was hospitalized for further evaluation of their emergent condition. Critical Care patient: No - Discharge Referral Referred to [facility] Yes Physician Referral: Malcolm Paulino DO (Neph)
--- NOTE | 2018-09-21 15:03 | PN ---
Progress Note, Physician History of Present Illness: Pt seen and examined at bedside. He has nausea and vomiting today. - Current Medication List Current Medications: Active Medications Aspirin (Asa -) 81 mg PO DAILY [facility] Last Admin: 09/21/18 10:02 Dose: 81 mg Atorvastatin Calcium (Lipitor -) 80 mg PO HS [facility] Last Admin: 09/20/18 21:51 Dose: 80 mg Carvedilol (Coreg -) 25 mg PO BID [facility] Last Admin: 09/21/18 10:02 Dose: 25 mg Heparin Sodium (Porcine) (Heparin -) 5,000 unit SQ TID [facility] Last Admin: 09/21/18 14:19 Dose: Not Given Insulin Aspart (Novolog Vial Sliding Scale -) 1 vial SQ ACHS [facility]; Protocol Last Admin: 09/21/18 11:55 Dose: Not Given Levofloxacin (Levaquin -) 250 mg PO Q2D@0600 [facility] Last Admin: 09/21/18 10:02 Dose: 250 mg Nitroglycerin (Nitro-Dur Patch -) 0.4 mg TD DAILY [facility] Last Admin: 09/21/18 10:02 Dose: 0.4 mg Nitroglycerin (Nitrostat -) 0.4 mg SL Q5M PRN PRN Reason: CHEST PAIN Nystatin (Mycostatin Cream -) 1 applic TP BID [facility] Last Admin: 09/21/18 10:02 Dose: 1 applic Ondansetron HCl (Zofran Injection) 4 mg IVPUSH Q8H PRN PRN Reason: NAUSEA Last Admin: 09/20/18 10:33 Dose: 4 mg Oxycodone HCl (Oxycontin -) 10 mg PO Q6H PRN PRN Reason: PAIN LEVEL 7 - 10 Last Admin: 09/20/18 21:50 Dose: 10 mg - Objective Vital Signs: Vital Signs Temperature 97.9 F 09/21/18 10:04 Pulse Rate 65 09/21/18 10:04 Respiratory Rate 20 09/21/18 10:04 Blood Pressure 157/79 09/21/18 10:04 O2 Sat by Pulse Oximetry (%) 95 09/21/18 09:00 Constitutional: Yes: Mild Distress Eyes: Yes: Conjunctiva Clear HENT: Yes: Atraumatic Cardiovascular: Yes: S1, S2 Respiratory: Yes: CTA Bilaterally, On Nasal O2 Gastrointestinal: Yes: Soft, Abdomen, Obese Genitourinary: Yes: WNL Edema: Yes Edema: LLE: 1+, RLE: 1+ Neurological: Yes: Oriented Psychiatric: Yes: Oriented Labs: CBC, BMP 09/21/18 09:08 09/21/18 09:08 INR, PTT INR 1.27 (0.83-1.09) H 09/19/18 06:00 Problem List - Problems (1) VILLA (acute kidney injury) Code(s): N17.9 - ACUTE KIDNEY FAILURE, UNSPECIFIED (2) CKD (chronic kidney disease) Code(s): N18.9 - CHRONIC KIDNEY DISEASE, UNSPECIFIED Assessment/Plan Current Medications Generic Name Dose Route Start Last Admin Trade Name Freq PRN Reason Stop Dose Admin Aspirin 81 mg 09/18/18 10:00 09/21/18 10:02 Asa - PO 81 mg DAILY [facility] Administration Atorvastatin Calcium 80 mg 09/18/18 22:00 09/20/18 21:51 Lipitor - PO 80 mg HS [facility] Administration Carvedilol 25 mg 09/18/18 10:00 09/21/18 10:02 Coreg - PO 25 mg BID [facility] Administration Heparin Sodium (Porcine) 5,000 unit 09/18/18 06:00 09/21/18 14:19 Heparin - SQ Not Given TID [facility] Insulin Aspart 1 vial 09/18/18 07:00 09/21/18 11:55 Novolog Vial Sliding Scale - SQ Not Given ACHS [facility] Protocol Levofloxacin 250 mg 09/21/18 09:45 09/21/18 10:02 Levaquin - PO 250 mg Q2D@0600 [facility] Administration Nitroglycerin 0.4 mg 09/18/18 10:00 09/21/18 10:02 Nitro-Dur Patch - TD 0.4 mg DAILY [facility] Administration Nitroglycerin 0.4 mg 09/18/18 03:08 Nitrostat - SL Q5M PRN CHEST PAIN Nystatin 1 applic 09/18/18 22:00 09/21/18 10:02 Mycostatin Cream - TP 1 applic BID [facility] Administration Ondansetron HCl 4 mg 09/20/18 09:38 09/20/18 10:33 Zofran Injection IVPUSH 4 mg Q8H PRN Administration NAUSEA Oxycodone HCl 10 mg 09/19/18 11:15 09/20/18 21:50 Oxycontin - PO 10 mg Q6H PRN Administration PAIN LEVEL 7 - 10 Impression 1. VILLA 2. hyperkalemia 3. ckd 4. fluid overload 5. cad 6. dm 7. PNA Plan - keep lasix on hold for now - pt with nausea and vomiting - pt says he wants to go home - abx per ID - discussed with medical team
[2018-09-21 15:29] VITALS: BP 147/61; PULSE 67; TEMP 98.3
== END 2018-09-21 15:38 | disposition home health service (06) | DRG 871 ==
LOC: JER 21:49 → JERBED 09-18 00:01 → J5S 09-18 05:10
PROVIDERS: ADMIT Internal Medicine; ATTEND Hospitalist
DX: A41.9 Sepsis, unspecified organism (principal); J18.9 Pneumonia, unspecified organism; I13.0 Hypertensive heart and chronic kidney disease with heart failure and stage 1 through stage 4 chronic kidney disease, or unspecified chronic kidney disease; I50.32 Chronic diastolic (congestive) heart failure; N17.9 Acute kidney failure, unspecified; N18.4 Chronic kidney disease, stage 4 (severe); I25.10 Atherosclerotic heart disease of native coronary artery without angina pectoris; Z95.1 Presence of aortocoronary bypass graft; E11.22 Type 2 diabetes mellitus with diabetic chronic kidney disease; Z88.0 Allergy status to penicillin; Z79.4 Long term (current) use of insulin; K64.8 Other hemorrhoids; G25.81 Restless legs syndrome; E11.21 Type 2 diabetes mellitus with diabetic nephropathy; E66.9 Obesity, unspecified; C62.90 Malignant neoplasm of unspecified testis, unspecified whether descended or undescended; Z86.73 Personal history of transient ischemic attack (TIA), and cerebral infarction without residual deficits; E87.5 Hyperkalemia; Y95 Nosocomial condition; M54.5 Low back pain; I12.9 Hypertensive chronic kidney disease with stage 1 through stage 4 chronic kidney disease, or unspecified chronic kidney disease; Z66 Do not resuscitate; D63.1 Anemia in chronic kidney disease; Z68.37 Body mass index [BMI] 37.0-37.9, adult
CPT/HCPCS: 36415; 71045-TC-FY; 71250-TC; 80048; 80053; 82728; 82803; 82962; 83540; 83550; 83605; 83735; 83880; 84100; 84466; 84484; 85025; 85027; 85044; 85610; 85730; 87040; 87804; 87899; 93005; 93010; 99283-25; G0480; J0131; J1644; J7030

== ENCOUNTER 2018-12-04 08:58 | Emergency (ER) | payer BC, OTHER ==
[2018-12-04 09:21] VITALS: TEMP 98.8; BMI 36.0
--- NOTE | 2018-12-04 09:24 | PDOC ---
History of Present Illness - General Chief Complaint: Injury Stated Complaint: FALL Time Seen by Provider: 12/04/18 09:24 - History of Present Illness Initial Comments: 12/04/18 09:42 The patient is a 68 year old male with a history of DM2, CAD (s/p 4V CABG 2016 at [facility]), diastolic CHF, CKD (baseline cr 2.0), TIA, HTN, Testicular CA who presents for evaluation following a fall. The patient is accompanied by his who assists in providing the history. They note that the patient "fell asleep" on the toilet falling forward and hitting his head on the floor. The patient states that he does not remember falling asleep and only awoke after the fall on the floor. He reports pain to his left forehead and bilateral shoulders but otherwise denies fevers, chills, SOB, chest pain, nausea, vomiting , abdominal pain, or changes with urination or bowel movements. Past History - Past Medical History Allergies/Adverse Reactions: Allergies Allergy/AdvReac Type Severity Reaction Status Date / Time Penicillins Allergy Rash Verified 09/17/18 22:10 sumatriptan [From Imitrex] Allergy Verified 09/17/18 22:10 sumatriptan succinate Allergy Verified 09/17/18 22:10 [From Imitrex] ASPARTANE Allergy Severe HEADACHE Uncoded 09/17/18 22:10 TRYPTOPHAN Allergy Intermediate DIARRHEA/VO Uncoded 09/17/18 22:10 MITING Home Medications: Ambulatory Orders Aspirin [ASA -] 81 mg PO DAILY 09/20/15 Atorvastatin Ca [Lipitor] 80 mg PO HS 09/20/15 Carvedilol 25 mg PO BID 09/20/15 Cholecalciferol (Vitamin D3) [D3-2000] 2,000 unit PO DAILY 09/20/15 Nitroglycerin Sublingual [Nitrostat -] 0.4 mg SL [id number] PRN #30 tab 10/07/16 Exenatide [Byetta] 10 mcg SQ BID 02/14/17 oxyCODONE HCL [Roxicodone -] 10 mg PO Q4H PRN 02/14/17 Krill/Om-3/Dha/Epa/Phospho/Ast [Krill Oil 500 mg Softgel] 1 each PO BID Multivit-Min/FA/Lycopen/Lutein [Centrum Silver Men Tablet] 1 each PO DAILY 11/22 Nitroglycerin Patch [Nitro-Dur Patch -] 0.4 mg TD DAILY 11/22/17 Ferrous Sulfate [Iron] 325 mg PO DAILY 07/27/18 [place]-3 Acid Ethyl Esters [Lovaza -] 1,000 mg PO HS 07/27/18 Ascorbic Acid [Vitamin C -] 500 mg PO DAILY tablet 09/15/18 Blood Sugar Diagnostic [Glucose Test Strip] 1 each ACHS #30 strip 09/21/18 Insulin Sliding Scale [Novolog Vial Sliding Scale -] 1 vial SQ ACHS units 09/21 levoFLOXacin [Levaquin -] 250 mg PO Q2D@0600 #4 tablet 09/21/18 Anemia: No Asthma: No Cancer: Yes (TESTICULAR ca with lymph node dissection) Cardiac Disorders: Yes (AR 2014) CVA: Yes (TIA 05/2011) COPD: No CHF: No Dementia: No Diabetes: Yes GI Disorders: Yes (GASTRITIS, SPASTIC COLON, GERD; COLON POLYPS) Disorders: Yes (kidney failure) HTN: Yes Hypercholesterolemia: Yes Kidney Stones: Yes Liver Disease: No Seizures: No Thyroid Disease: No - Surgical History Abdominal Surgery: Yes Appendectomy: No Cardiac Surgery: Yes (quad bypass 2014) Cholecystectomy: Yes Lung Surgery: No Neurologic Surgery: Yes (HERNIATED DISC; BRAIN SURGERY INFANT) Orthopedic Surgery: Yes (KNEE ARTHROSCOPY R/L) - Immunization History Td Vaccination: Yes TDAP Vaccination: Yes Immunization Up to Date: Yes - Suicide/Smoking/Psychosocial Hx Smoking Status: No Smoking History: Former smoker Have you smoked in the past 12 months: No Number of Cigarettes Smoked Daily: 0 If you are a former smoker, when did you quit?: 50 years ago Cigars Per Day: 0 Information on smoking cessation initiated: No Hx Alcohol Use: No Drug/Substance Use Hx: No Substance Use Type: None Hx Substance Use Treatment: No Review of Systems - Review of Systems Comments:: 12/04/18 09:45 Constitutional: No fevers, chills, fatigue, malaise HEENT: Forehead Pain. No Rhinorrhea, nasal congestion, visual changes Cardiovascular: No chest pain, palpitations, lightheadedness Respiratory: No Cough, SOB, Hemoptysis, Gastrointestinal: No Abdominal pain, Nausea, Vomiting, Constipation, Diarrhea, Melena Genitourinary: No Dysuria, Frequency, Urgency, Hesitancy, Hematuria, Flank pain Musculoskeletal: Bilateral Shoulder pain. No Myalgia, arthralgia Skin: No rashes, itching, bruising, pallor Neurologic: No Headache, Dizziness, Numbness, Weakness, or Tingling Psychiatric: No Hallucinations. No SI or HI *Physical Exam - Vital Signs Last Vital Signs Temp Pulse Resp BP Pulse Ox 98.8 F 68 20 172/72 H 97 12/04/18 09:10 12/04/18 09:10 12/04/18 09:10 12/04/18 09:10 12/04/18 09:10 - Physical Exam Comments: 12/04/18 09:48 General Appearance: Nourished. No Apparent Distress HEENT: EOMI, LOUISA. Abrasion with hematoma above the left eyebrow. No Pharyngeal Erythema, Tonsillar Exudate, Tonsillar Erythema Neck: No Cervical Lymphadenopathy or C-spine Tenderness Respiratory/Chest: Lungs Clear, Normal Breath Sounds. No Crackles, Rales, Rhonchi, Wheezing Cardiovascular: Regular Rhythm, Regular Rate. No Murmur, Gallops, Rubs Gastrointestinal/Abdominal: Normal Bowel Sounds, Soft. No Guarding, Rebound, Tenderness Musculoskeletal: Reduced ROM of the shoulders bilaterally secondary to pain. No CVA Tenderness Extremity: 2+ pitting edema in the lower extremities bilaterally. Normal Capillary Refill Integumentary: Normal Color, Dry, Warm Neurologic: manager customer II-XII NML intact, Fully Oriented, Alert, Normal Mood/Affect, Normal Response, Motor Strength 5/5. Normal Finger to Nose and Heel to [place] ED Treatment Course - LABORATORY CBC & Chemistry Diagram: 12/04/18 10:40 12/04/18 10:40 Medical Decision Making - Medical Decision Making 12/04/18 09:51 The patient is a 68 year old male with a history of DM2, CAD (s/p 4V CABG 2016 at [facility]), diastolic CHF, CKD (baseline cr 2.0), TIA, HTN, Testicular CA who presents for evaluation following a fall. Given the patient's history and physical exam, we will obtain a cbc, cmp, troponin, bnp, ekg, head ct, facial bone ct, neck ct to evaluate further. We will treat with iv tylenol and morphine and continue to monitor and reassess while here in the ED. 12/04/18 14:01 CBC, cmp, troponin are unremarkable. Head CT is unremarkable. Facial bone CT demonstrates chronic old nasal bone and orbital fracture without any acute findings as read by our radiologist. Neck CT demonstrates no acute findings as read by our radiologist. The patient was reassessed and reports improvement in their symptoms and is requesting discharge home. We discussed the case with the patient's primary care provider Dr. Kurtz who will follow up with the patient. We are comfortable discharging the patient home in stable condition. Patient and family made aware of impression and plan, return precautions discussed including but not limited to worsening pain or symptoms, fevers, or signs of infection, chest pain, respiratory distress, inability to tolerate oral intake, dehydration, syncope, or neurologic changes. The patient is to follow up with PMD as recommended within 1 week, follow up information provided and the patient will call for an appointment. The patient is to take medications as instructed for duration of time and continue with supportive care , avoid triggers and precipitants. Patient is safe for outpatient follow-up. *DC/Admit/Observation/Transfer Diagnosis at time of Disposition: Fall Qualifiers: Encounter type: initial encounter Qualified Code(s): W19.XXXA - Unspecified fall, initial encounter - Discharge Dispostion Disposition: HOME Condition at time of disposition: Stable Decision to Admit order: No - Referrals Referrals: German Kurtz MD [Primary Care Provider] - - Patient Instructions Printed Discharge Instructions: How to Prevent Falls Additional Instructions: 1) Please follow-up with your primary care doctor in the next 2-3 days. Please call tomorrow to schedule a follow up appointment. If you cannot follow up with your doctor within 1 week please return to the Emergency Department for any urgent issues. 2) You were given a copy of the tests performed today. Please bring the results with you and review them with your primary care doctor. Your laboratory / imaging results were normal here in the ER. 3) If you have any worsening of symptoms or any other concerns please return to the ER immediately. Return if worsening symptoms including fevers, headache, vomiting, visual or hearing disturbances, abdominal pain, chest pain, shortness of breath, syncope, dehydration, inability to take things by mouth/vomiting, altered mental status, or worsening concerning symptoms. 4) Please continue taking your home medications as directed. - Post Discharge Activity
[2018-12-04] MEDS ORDERED: ACETAMINOPHEN 1000 MG/100 ML VIAL (NON FORMULARY) IVPB ONE (09:36)
[2018-12-04] MEDS ORDERED: ACETAMINOPHEN INJECTION 100 ML IVPB ONE (10:14)
[2018-12-04] MEDS ORDERED: morphine CARPU-JECT 4 MG/1 ML DISP.SYRIN IVPUSH ONE (10:18)
[2018-12-04] MEDS ORDERED: morphine SULFATE 4 MG/ML VIAL ONE (10:24)
[2018-12-04 10:57] LABS: BASO % 0.8 % (0-2.0); EOS % 3.3 % (0-4.5); HEMATOCRIT 29.5 % (35.4-49); LYMPH % 15.1 % (8-40); MCH 29.4 pg (25.7-33.7); MEAN CELL VOLUME 86.5 fl (80-96); MEAN PLT VOLUME 8.6 fl (7.5-11.1); MONO % 11.2 % (3.8-10.2); NEUT % 69.6 % (42.8-82.8); PLATELET COUNT 186 K/MM3 (134-434); RBC 3.41 M/mm3 (4.00-5.60); RDW 15.5 % (11.9-15.9); WHITE BLOOD COUNT 11.4 K/mm3 (4.0-10.0)
[2018-12-04 11:10] LABS: INR 1.05 (0.83-1.09); PROTHROMBIN TIME (PATIENT) 12.4 SEC (9.7-13.0)
[2018-12-04 11:12] LABS: ACTIVATED PTT 36.8 SECONDS (25.2-36.5)
[2018-12-04 11:28] LABS: ALK PHOS 93 U/L (45-117); ANION GAP 5 MMOL/L (8-16); BILIRUBIN,TOTAL 0.5 mg/dL (0.2-1); BLOOD UREA NITROGEN 40 mg/dL (7-18); CALCIUM 8.6 mg/dL (8.5-10.1); CHLORIDE 106 mmol/L (98-107); CO2 29 mmol/L (21-32); CREATININE 2.2 mg/dL (0.55-1.3); GLUCOSE,RANDOM 220 mg/dL (74-106); N-TERMINAL BNP 1494.9 pg/ml (5-125); POTASSIUM 4.1 mmol/L (3.5-5.1); SGOT/AST 10 U/L (15-37); SGPT/ALT 16 U/L (13-61); SODIUM 139 mmol/L (136-145); TOT PROT 6.7 g/dl (6.4-8.2)
--- NOTE | 2018-12-04 13:27 | PDOC ---
Attending Attestation - Resident Resident Name: Mario Arreola - ED Attending Attestation I have performed the following: I have examined & evaluated the patient, The case was reviewed & discussed with the resident, I agree w/resident's findings & plan, Exceptions are as noted - HPI HPI: 12/04/18 13:21 68 M ho DM2, CAD CABG CHF, CKD , TIA, HTN, Testicular CA who presents for evaluation following a fall. per pt and patient he fell asleep on the toilet. subsequantly fell forward and hit his head on the floor. states he has done this in the past. sustained laceration to forehead. also c/o bilat upper ext pain denies neck pain. no n/v no change mental status change since fall. per his pt was recently on hospice, and was taken off. he does not want to be started on dialysis , and is currently dnr, dni. - Physicial Exam PE: 12/04/18 13:24 awake alert superifical laceration/ abrasion forehead. lungs clear bilaterally heart rrr no mrg abd soft nt nd. ( getachew scar) alert oriented x 3. skin warm and dry. - Medical Decision Making 12/04/18 13:25 68 yo male mult med problems, s/p fallin asleep on toilet. laceration to forehad , no sutures necessary will add bacitracin, pain control ct head cervical spin, xray chest labs. ct head normal c spine negative. cxr negative. no fracture. pt ambulated to bathroom. would like to go home. DR Kurtz paged for followup.awaiting call back. Heart Score/ECG Review #1 General ECG Interpretation: Sinus Rhythm, Normal Rate (57), Normal Intervals, No acute ischemic changes Compared to previous ECG there are: Other (occasional pvc.)
[2018-12-04 14:10] VITALS: BP 189/63; PULSE 66
--- NOTE | 2018-12-04 15:36 | EKG ---
Test Reason : Blood Pressure : / mmHG Vent. Rate : 057 BPM Atrial Rate : 057 BPM P-R Int : 226 ms QRS Dur : 116 ms QT Int : 466 ms P-R-T Axes : 038 051 063 degrees QTc Int : 453 ms SINUS BRADYCARDIA WITH 1ST DEGREE A-V BLOCK WITH OCCASIONAL PREMATURE VENTRICULAR COMPLEXES CANNOT RULE OUT ANTERIOR INFARCT , AGE UNDETERMINED ABNORMAL ECG WHEN COMPARED WITH ECG OF 17-SEP-2018 22:14, PREMATURE VENTRICULAR COMPLEXES ARE NOW PRESENT Confirmed by Bryce Hoang ([id number]) on 12/04/2018 3:35:35 PM Referred By: Confirmed By:Bryce Hoang
== END 2018-12-04 14:10 | disposition home or self-care (01) ==
LOC: JER 08:58
PROC: 3E033NZ Introduction of Analgesics, Hypnotics, Sedatives into Peripheral Vein, Percutaneous Approach (ICD-10-PCS; principal; 2018-12-04)
PROC: 3E033NZ Introduction of Analgesics, Hypnotics, Sedatives into Peripheral Vein, Percutaneous Approach (ICD-10-PCS; 2018-12-04)
DX: S09.8XXA Other specified injuries of head, initial encounter (principal); S01.81XA Laceration without foreign body of other part of head, initial encounter; W18.12XA Fall from or off toilet with subsequent striking against object, initial encounter; Y93.89 Activity, other specified; Y92.012 Bathroom of single-family (private) house as the place of occurrence of the external cause; Y99.8 Other external cause status; I25.810 Atherosclerosis of coronary artery bypass graft(s) without angina pectoris; I13.0 Hypertensive heart and chronic kidney disease with heart failure and stage 1 through stage 4 chronic kidney disease, or unspecified chronic kidney disease; N18.9 Chronic kidney disease, unspecified; I50.30 Unspecified diastolic (congestive) heart failure; Z95.1 Presence of aortocoronary bypass graft; E11.9 Type 2 diabetes mellitus without complications; Z79.4 Long term (current) use of insulin; Z85.47 Personal history of malignant neoplasm of testis; Z86.73 Personal history of transient ischemic attack (TIA), and cerebral infarction without residual deficits
CPT/HCPCS: 36415; 70450-TC; 70486-TC; 72125-TC; 80053; 82550; 83880; 84484; 85025; 85610; 85730; 86850; 86870; 86900; 86901; 86902; 93005; 93010; 99284-25; J0131

== ENCOUNTER 2019-02-01 20:02 | Emergency (ER) | payer BC, OTHER | END 2019-02-01 22:47 | disposition home or self-care (01) | LOC: FER 20:02 ==

== ENCOUNTER 2019-02-08 10:00 | Inpatient (IN) | payer BC, OTHER ==
--- NOTE | 2019-02-08 10:10 | PDOC ---
History of Present Illness - General Stated Complaint: SENT BY FOR HIGH POTASSIUM Time Seen by Provider: 02/08/19 10:09 History Source: Patient Exam Limitations: No Limitations - History of Present Illness Initial Comments: 02/08/19 10:18 Mr Carolina is a 68 yo old male, with a significant PMH of DM2, CAD (s/p 4V CABG 2015 at [facility]), diastolic CHF, CKD (baseline cr 2.0), TIA, HTN, Testicular CA , recently seen in the ER for abdominal cellulitis. Pt was seen by Dr Jacob Camacho yesterday for lab draw. He was called today because his potassium was elevated. Pt told to come to the ER for further assessment He denies nausea, vomiting, diarrhea He denies fevers or chills He denies abdominal pain He denies chest pain Does report exertional dyspnea (short of breath walking here from his car, had to stop once, states this is his baseline) He makes a normal amount of urine as previously Past medical history: As above Past surgical history: CABG Family history: non contributory Social history: Lives with , no toxic habits Medications: See MAR Allergies: As per nursing notes ROS: General: No fevers or chills, no weakness, no weight loss HEENT: No change in vision. No sore throat,. No ear pain CardioVascular: No chest pain or shortness of breath Respiratory: No cough, or wheezing. Gastrointestinal: no nausea, vomiting, diarrhea or constipation, No rectal bleeding Genitourinary: No dysuria, hematuria, or frequency Musculoskeletal: No joint or muscle pain or swelling Neurologic: No headache, vertigo, dizziness or loss of consciousness Skin: LLQ no longer erythematous Endocrine: no increased thirst or abnormal weight change Allergic: no skin or latex allergy All other systems reviewed and normal GENERAL: The patient is in no acute distress. HEAD: Normal EYES: PERRLA, EOMI, sclera anicteric, conjunctiva clear. ENT: Ears normal, nares patent, oropharynx clear without exudates. Moist mucous membranes. NECK: Normal range of motion, supple LUNGS: Breath sounds equal, clear to auscultation bilaterally. No wheezes, and no crackles. HEART:Regular rate and rhythm, normal S1 and S2 without murmur, rub or gallop. ABDOMEN: Soft, LLQ area of firmness/indurated skin noted EXTREMITIES: Normal range of motion, no edema. NEUROLOGICAL: Cranial nerves II through XII grossly intact. Normal speech. No focal neurological deficits. MUSCULOSKELETAL: Back non-tender to palpation, no CVA tenderness SKIN: Warm, Dry, normal turgor, no rashes or lesions noted. 02/08/19 10:21 Past History - Past Medical History Allergies/Adverse Reactions: Allergies Allergy/AdvReac Type Severity Reaction Status Date / Time 3-ukmjmbm-M-tryptophan Allergy diarrhea, Verified 02/08/19 10:03 (oxitriptan) vomiting aspartame Allergy headache Verified 02/08/19 10:02 banana Allergy Verified 02/08/19 10:11 Penicillins Allergy Rash Verified 02/01/19 20:15 sumatriptan [From Imitrex] Allergy Verified 02/01/19 20:15 sumatriptan succinate Allergy Verified 02/01/19 20:15 [From Imitrex] Home Medications: Ambulatory Orders Aspirin [ASA -] 81 mg PO HS 09/20/15 Atorvastatin Ca [Lipitor] 80 mg PO HS 09/20/15 Carvedilol 25 mg PO BID 09/20/15 Cholecalciferol (Vitamin D3) [D3-2000] 2,000 unit PO DAILY 09/20/15 Nitroglycerin Sublingual [Nitrostat -] 0.4 mg SL [id number] PRN #30 tab 10/07/16 Krill/Om-3/Dha/Epa/Phospho/Ast [Krill Oil 500 mg Softgel] 1 each PO BID Multivit-Min/FA/Lycopen/Lutein [Centrum Silver Men Tablet] 1 each PO DAILY 11/22 Nitroglycerin Patch [Nitro-Dur Patch -] 0.4 mg TD HS 11/22/17 Ferrous Sulfate [Iron] 325 mg PO DAILY 07/27/18 [place]-3 Acid Ethyl Esters [Lovaza -] 1,000 mg PO DAILY 07/27/18 Ascorbic Acid [Vitamin C -] 500 mg PO DAILY tablet 09/15/18 Blood Sugar Diagnostic [Glucose Test Strip] 1 each ACHS #30 strip 09/21/18 Sulfamethoxazole/Trimethoprim [Bactrim DS -] 1 tab PO BID #20 tablet 02/01/19 Anemia: No Asthma: No Cancer: Yes (TESTICULAR ca with lymph node dissection) Cardiac Disorders: Yes (2014) CVA: Yes (TIA 05/2011) COPD: No CHF: No Dementia: No Diabetes: Yes GI Disorders: Yes (GASTRITIS, SPASTIC COLON, GERD; COLON POLYPS) Disorders: Yes (kidney failure) HTN: Yes Hypercholesterolemia: Yes Kidney Stones: Yes Liver Disease: No Seizures: No Thyroid Disease: No - Surgical History Abdominal Surgery: Yes Appendectomy: No Cardiac Surgery: Yes (quad bypass 2014) Cholecystectomy: Yes Lung Surgery: No Neurologic Surgery: Yes (HERNIATED DISC; BRAIN SURGERY INFANT) Orthopedic Surgery: Yes (KNEE ARTHROSCOPY R/L) - Immunization History Td Vaccination: Yes TDAP Vaccination: Yes Immunization Up to Date: Yes - Suicide/Smoking/Psychosocial Hx Smoking Status: No Smoking History: Former smoker Have you smoked in the past 12 months: No Number of Cigarettes Smoked Daily: 0 If you are a former smoker, when did you quit?: 50 years ago Cigars Per Day: 0 Hx Alcohol Use: No Drug/Substance Use Hx: No Substance Use Type: None Hx Substance Use Treatment: No ED Treatment Course - LABORATORY CBC & Chemistry Diagram: 02/08/19 11:30 02/08/19 11:30 Medical Decision Making - Medical Decision Making 02/08/19 10:23 Pt with a history of renal insufficiency found yesterday to have hyperkalemia Sent to the ER for lab redraw possibly hyperkalemic, will do EKG and Lbas possibly hemolyzed specimen 02/08/19 10:38 EKG - NSR rate of 61 bpm, axis nml, no st elevation or depression, intervals abn - pr: 226ms, QRS: 116ms, QTc:426ms 02/08/19 11:03 Pt is a very difficult stick Pt nurse attempted and unable to get blood Second nurse want to attempt to draw labs He refused her sticking him any where but the anticubital fossa He states he is DNR/DNI, he feels too much pain when stuck in the forearm or hand Pt told we can just butterfly for now He is refusing Call paced to phlebotomy 02/08/19 12:01 Laboratory Tests 02/01/19 02/01/19 02/08/19 21:00 21:25 11:30 WBC 8.5 8.4 Hgb 9.8 L 10.5 L Hct 29.6 L 31.3 L Plt Count 196 224 Sodium 137 Potassium 5.4 H Chloride 112 H Carbon Dioxide 21 BUN 54.0 H Creatinine 2.0 H Random Glucose 177 H 02/08/19 11:30 WBC Hgb Hct Plt Count Sodium 137 Potassium 6.9 H* Chloride 109 H Carbon Dioxide 22 BUN 47.0 H Creatinine 2.7 H Random Glucose 94 [facility] 02/08/19 12:20 Both nurses have attempted to place IV Pt refusing IV placement He has a list of reasons why he can not have an IV anywhere in his left arm OR the right forearm or hand 02/08/19 13:00 Pt refused Lokelma 02/08/19 15:54 Fingerstick 55 Apple juice given x 2 Dextrose 50 given 02/08/19 15:58 *DC/Admit/Observation/Transfer Diagnosis at time of Disposition: VILLA (acute kidney injury), Hyperkalemia - Discharge Dispostion Condition at time of disposition: Stable Decision to Admit order: Yes - Referrals Referrals: Jacob Camacho MD [Primary Care Provider] - - Patient Instructions - Post Discharge Activity
[2019-02-08 11:47] LABS: BASO % 0.6 % (0-2.0); EOS % 2.6 % (0-4.5); HEMATOCRIT 31.3 % (35.4-49); HEMOGLOBIN 10.5 GM/dl (11.7-16.9); LYMPH % 15.7 % (8-40); MCHC 33.5 g/dl (32.0-35.9); MEAN CELL VOLUME 89.7 fl (80-96); MEAN PLT VOLUME 8.3 fl (7.5-11.1); MONO % 7.8 % (3.8-10.2); NEUT % 73.3 % (42.8-82.8); PLATELET COUNT 224 K/MM3 (134-434); RBC 3.49 M/mm3 (4.00-5.60); RDW 16.8 % (11.9-15.9); WHITE BLOOD COUNT 8.4 K/mm3 (4.0-10.8)
[2019-02-08 11:56] LABS: ALBUMIN 3.1 g/dl (3.4-5.0); BILIRUBIN,TOTAL 0.7 mg/dl (0.2-1); CALCIUM 9.2 mg/dl (8.5-10); CREATININE 2.7 mg/dl (0.55-1.3); MAGNESIUM 2.1 mg/dL (1.8-2.4); PHOSPHOROUS 4.6 mg/dl (2.5-4.9); TOT PROT 6.3 g/dl (6.4-8.2)
[2019-02-08 11:58] LABS: POTASSIUM 6.9 mmol/L (3.5-5.1)
[2019-02-08] MEDS ORDERED: SODIUM ZIRCONIUM CYCLOSILICATE (LOKELMA) 5 GM PACKET PO ONE (12:05)
[2019-02-08] MEDS ORDERED: SODIUM CHLORIDE 1,000 ML IV SCH ×2 (12:15→22:29)
[2019-02-08] MEDS ORDERED: CALCIUM GLUCONATE 10% - 1,000 MG/10 ML VIAL IVPB ONE (13:16)
[2019-02-08] MEDS ORDERED: CALCIUM GLUCONATE 10% - 1,000 MG/10 ML VIAL ONE (13:19)
[2019-02-08] MEDS ORDERED: DEXTROSE 50%-WATER - 25 GM/50 ML VIAL IVPUSH ONE ×2 (14:10→15:55)
[2019-02-08] MEDS ORDERED: INSULIN REGULAR HUMAN 100 UNITS/ML *VIAL IVPUSH ONE (14:10)
[2019-02-08] MEDS ORDERED: DEXTROSE 50%-WATER 25 GM/50 ML DISP.SYRIN ONE ×2 (14:12→15:56)
[2019-02-08] MEDS ORDERED: INSULIN REGULAR HUMAN 100 UNITS/ML *VIAL ONE (14:14)
--- NOTE | 2019-02-08 14:47 | HP ---
CHIEF COMPLAINT: I was told by Dr. Camacho to come to the ED for high potassium. PCP: Dr. Jacob Camacho Director Of Alumni Relations: Dr. Malcolm Paulino HISTORY OF PRESENT ILLNESS: 68 year-old male with a PMH significant for HTN, HLD, CAD s/p CABG x 4, carotid artery stenosis, diastolic HF, CKD, gout, Type II NIDDM, diabetic neprhopathy, testicular cancer s/p resection, lymphoma, depression, and opiate dependency. Patient presented to the [place] ED on 02/08/19 for abdominal cellulitis. He was treated and discharged with a prescription for Bactrim. He was seen in followup yesterday by Dr. Jacob Camacho who radha labs, advised patient today to come to ED for a potassium of 7. ER course was notable for: (1) K 6.9 (2) BUN/Cr 47/2.7 (3) calcium gluconate 1g x 1; Lokelma refused by patient; Novolog insulin 10U x 1; D50 25g x 1; NS @ 100mL/hr Recent Travel: No PAST MEDICAL HISTORY: Hypertension Hyperlipidemia Coronary artery disease Carotid artery stenosis Diastolic heart failure Chronic kidney disease TIA Gout Type II NIDDM Diabetic nephropathy IBS Testicular cancer Lymphoma Depression Opiate dependency PAST SURGICAL HISTORY: CABGx4 2016 [facility] Cholecystectomy 1998 2007 right knee surgery 2012 L-spine surgery 2013 oral surgery c/b infection to jawbone 1985/1985 testicular cancer s/p right orchiectomy with prosthesis implant 1994 spinal surgery for C6-7 herniated disc 1998 hemorrhoidectomy 2001 spinal surgery C5-C6 disc herniation 2006 spinal surgery for herniated discs (? location) Brain surgery as a child abdominal surgery to remove affected lymph nodes due to metastatic testicular cancer Social History: lives with spouse Smoking: former Alcohol: Drugs: Family History: diabetes: Mother ( (80s) ), Heart Disease: Father ( (90s)), Other: Sister (alive (69) thyroid disease) Allergies 3-oeiytmb-T-tryptophan (oxitriptan) Allergy (Verified 02/08/19 10:03) diarrhea, vomiting aspartame Allergy (Verified 02/08/19 10:02) headache banana Allergy (Verified 02/08/19 10:11) Penicillins Allergy (Verified 02/01/19 20:15) Rash sumatriptan [From Imitrex] Allergy (Verified 02/01/19 20:15) sumatriptan succinate [From Imitrex] Allergy (Verified 02/01/19 20:15) HOME MEDICATIONS: Home Medications Medication Instructions Recorded Aspirin [ASA -] 81 mg PO HS 09/20/15 Atorvastatin Ca [Lipitor] 80 mg PO HS 09/20/15 Carvedilol 25 mg PO BID 09/20/15 Cholecalciferol (Vitamin D3) 2,000 unit PO DAILY 09/20/15 [D3-2000] Nitroglycerin Sublingual 0.4 mg SL [id number] PRN #30 tab 10/07/16 [Nitrostat -] Krill/Om-3/Dha/Epa/Phospho/Ast 1 each PO BID 11/22/17 [Krill Oil 500 mg Softgel] Multivit-Min/FA/Lycopen/Lutein 1 each PO DAILY 11/22/17 [Centrum Silver Men Tablet] Nitroglycerin Patch [Nitro-Dur 0.4 mg TD HS 11/22/17 Patch -] Ferrous Sulfate [Iron] 325 mg PO DAILY 07/27/18 [place]-3 Acid Ethyl Esters [Lovaza 1,000 mg PO DAILY 07/27/18 -] Ascorbic Acid [Vitamin C -] 500 mg PO DAILY tablet 09/15/18 Blood Sugar Diagnostic [Glucose 1 each [facility] #30 strip 09/21/18 Test Strip] Sulfamethoxazole/Trimethoprim 1 tab PO BID #20 tablet 02/01/19 [Bactrim DS -] REVIEW OF SYSTEMS CONSTITUTIONAL: Absent: fever, chills, diaphoresis, generalized weakness, malaise, loss of appetite, weight change HEENT: Absent: rhinorrhea, nasal congestion, throat pain, throat swelling, difficulty swallowing, mouth swelling, ear pain, eye pain, visual changes CARDIOVASCULAR: +worsening lower extremity edema Absent: chest pain, syncope, palpitations, irregular heart rate, lightheadedness , peripheral edema RESPIRATORY: Absent: cough, shortness of breath, dyspnea with exertion, orthopnea, wheezing, stridor, hemoptysis GASTROINTESTINAL: Absent: abdominal pain, abdominal distension, nausea, vomiting, diarrhea, constipation, melena, hematochezia GENITOURINARY: Absent: dysuria, frequency, urgency, hesitancy, hematuria, flank pain, genital pain MUSCULOSKELETAL: Absent: myalgia, arthralgia, joint swelling, back pain, neck pain SKIN: +LLQ erythema, swelling, firmness x 2 weeks Absent: rash, itching, pallor HEMATOLOGIC/IMMUNOLOGIC: Absent: easy bleeding, easy bruising, lymphadenopathy, frequent infections ENDOCRINE: Absent: unexplained weight gain, unexplained weight loss, heat intolerance, cold intolerance NEUROLOGIC: Absent: headache, focal weakness or paresthesias, dizziness, unsteady gait, seizure, mental status changes, bladder or bowel incontinence PSYCHIATRIC: Absent: anxiety, depression, suicidal or homicidal ideation, hallucinations. PHYSICAL EXAMINATION Vital Signs - 24 hr 02/08/19 02/08/19 10:00 14:00 Temperature 98.2 F 97.6 F Pulse Rate 65 Pulse Rate [ 57 L Left Apical] Respiratory 18 16 Rate Blood Pressure 186/74 H Blood Pressure 177/64 H [Left Arm] O2 Sat by Pulse 100 97 Oximetry (%) GENERAL: Awake, alert, and fully oriented, in no acute distress. Tearful. HEAD: Normal with no signs of trauma. EYES: Pupils equal, round and reactive to light, extraocular movements intact, sclera anicteric, conjunctiva clear. No lid lag. EARS, NOSE, THROAT: Ears normal, nares patent, oropharynx clear without exudates. Moist mucous membranes. NECK: Normal range of motion, supple without lymphadenopathy, JVD, or masses. LUNGS: Breath sounds equal, clear to auscultation bilaterally. No wheezes, and no crackles. No accessory muscle use. HEART: Regular rate and rhythm, S1 and S2 ABDOMEN: Soft, protuberant, tympanic, not tender; normoactive bowel sounds, no guarding, no rebound tenderness; LLQ erythema of the pannus with dimpling, no discrete collection appreciated UPPER EXTREMITIES: 2+ pulses, warm, well-perfused. No cyanosis. No clubbing. No peripheral edema. LOWER EXTREMITIES: 2+ pulses, warm, well-perfused. No calf tenderness. 4+ pitting, tense edema NEUROLOGICAL: Cranial nerves II-XII intact. Normal speech. Moving all extremities freely. Can transfer independently. Laboratory Results - last 24 hr 02/08/19 02/08/19 02/08/19 11:30 11:30 11:30 WBC 8.4 RBC 3.49 L Hgb 10.5 L Hct 31.3 L MCV 89.7 MCH 30.0 MCHC 33.5 RDW 16.8 H Plt Count 224 MPV 8.3 Absolute Neuts (auto) 6.1 Neutrophils % 73.3 Lymphocytes % 15.7 Monocytes % 7.8 Eosinophils % 2.6 Basophils % 0.6 Sodium 137 Potassium 6.9 H* Chloride 109 H Carbon Dioxide 22 Anion Gap 6 L BUN 47.0 H Creatinine 2.7 H Est GFR (CKD-EPI)AfAm 27.04 Est GFR (CKD-EPI)NonAf 23.33 Random Glucose 94 Calcium 9.2 Phosphorus 4.6 Magnesium 2.1 Total Bilirubin 0.7 AST 14 L ALT 18 Alkaline Phosphatase 82 D Creatine Kinase Troponin I < 0.03 Total Protein 6.3 L Albumin 3.1 L 02/08/19 11:30 WBC RBC Hgb Hct MCV MCH MCHC RDW Plt Count MPV Absolute Neuts (auto) Neutrophils % Lymphocytes % Monocytes % Eosinophils % Basophils % Sodium Potassium Chloride Carbon Dioxide Anion Gap BUN Creatinine Est GFR (CKD-EPI)AfAm Est GFR (CKD-EPI)NonAf Random Glucose Calcium Phosphorus Magnesium Total Bilirubin AST ALT Alkaline Phosphatase Creatine Kinase 107 Troponin I Total Protein Albumin ASSESSMENT/PLAN 68 year-old male with a PMH significant for HTN, HLD, CAD s/p CABG x 4, carotid artery stenosis, diastolic HF, CKD, gout, Type II NIDDM, diabetic nephropathy, testicular cancer s/p resection, lymphoma, depression, and opiate dependency. Patient presented to the [place] ED on 02/01/19 for abdominal cellulitis. He was evaluated and discharged with a prescription for Bactrim. He was seen in followup yesterday by Dr. Jacob Camacho who referred patient today to ED for a potassium of 7. Hyperkalemia --ECG: no acute ischemic changes, T waves nonspecific --Calcium gluconate, insulin, D50 given in ED; K 6.9-->6.0; repeat bmp in 6 hours --kayexelate TID --gentle IV fluids --hold home losartan LLQ abdominal cellulitis --no fever, no leukocytosis --took Bactrim x 7 days; stopped now due to hyperK --observe off antibiotics pending CTAP results Chronic kidney disease Diabetic nephropathy --Cr 2.7 on admission, baseline ~2 --hold ACEI, diuretics Type II NIDDM --Novolog sliding scale coverage Hypertension --BP elevated --continue carvedilol Hyperlipidemia --continue Lipitor Coronary artery disease Carotid artery stenosis --continue carvedilol, ASA, Lipitor Diastolic heart failure --09/12/18 Echo: moderate cLVH, LV normal; RV normal; mild to moderate MR; mild TR; RVSP elevated; mild AI; mild to moderate PI --BNP in am --hold diuretics for now Opiate dependency --lifelong dependency on phenobarbitol followed by opiate dependency --was in hospice, supposedly prescribed liberal amounts of oxycontin q2h --was detoxed 1 month ago? off oxycontin since but has supply at home --avoid opiates FEN Fluids: NS @ 50mL/hr Electrolytes: replete as indicated Nutrition: low sodium, diabetic DVT prophylaxis: subq heparin Physical therapy Dispo: continues to require inpatient care. Full code. Visit type - Emergency Visit Emergency Visit: Yes ED Registration Date: 02/08/19 Care time: The patient presented to the Emergency Department on the above date and was hospitalized for further evaluation of their emergent condition. - New Patient This patient is new to me today: Yes Date on this admission: 02/08/19 - Critical Care Critical Care patient: No
[2019-02-08] MEDS ORDERED: SODIUM POLYSTYRENE SULFONATE 15 GM/60 ML BOTTLE PO ONE ×2 (17:26→23:36)
[2019-02-08 17:49] LABS: BILIRUBIN,TOTAL 0.7 mg/dl (0.2-1); CALCIUM 9.1 mg/dl (8.5-10); CREATININE 2.6 mg/dl (0.55-1.3); TOT PROT 6.2 g/dl (6.4-8.2)
[2019-02-08] MEDS ORDERED: ACETAMINOPHEN INJECTION 100 ML IVPB ONE (20:19)
[2019-02-08] MEDS ORDERED: NITROGLYCERIN SUBLINGUAL 1/150 0.4 MG TAB ONE (20:19)
[2019-02-08 20:39] VITALS: BP 157/62; PULSE 63; TEMP 97.8
[2019-02-08 21:06] VITALS: BMI 34.9
[2019-02-08] MEDS ORDERED: SODIUM POLYSTYRENE SULFONATE 15 GM/60 ML BOTTLE PO STA ×2 (21:26→22:20)
[2019-02-08] MEDS ORDERED: ATORVASTATIN CA 80 MG TABLET (FP) PO SCH (22:00)
[2019-02-08] MEDS ORDERED: DULoxetine HCL 30 MG CAPSULE.DR PO SCH (22:00)
[2019-02-08] MEDS ORDERED: ALBUTEROL SO4 0.083% IH SOL 2.5 MG/3 ML VIAL.NEB. NEB ONE (23:36)
--- NOTE | 2019-02-08 23:41 | HOSP ---
Physical Examination Vital Signs: Vital Signs Temperature 97.8 F 02/08/19 20:30 Pulse Rate 63 02/08/19 20:30 Respiratory Rate 18 02/08/19 20:30 Blood Pressure 157/62 02/08/19 20:30 O2 Sat by Pulse Oximetry (%) 99 02/08/19 20:30 Labs: CBC, BMP 02/08/19 11:30 02/08/19 17:25 Hospitalist Encounter Assessment: patient seen at bedside, lab result K+ 6.0, after given Ca+ gluconate, Dextrose 10% , 10 Units Reg insulin earlier today. pt refusing to take anything, pt states he is sick of taking medication. pt denies chest pain, sob, pt crying in between while talking. pt informed of risk of having high potassium level. will order albuterol neb x1, 30 gr Kayexelate.
[2019-02-08] MEDS ORDERED: oxyCODONE HCL 5 MG TABLET PO ONE (23:52)
[2019-02-09] MEDS: TAPENTADOL HCL 100 MG PO SCH ×2 (00:21→10:27)
[2019-02-09] MEDS: HEPARIN NA (PORCINE) 5,000 UNITS/ML 1ML VIAL SQ SCH ×2 (00:21→05:20)
[2019-02-09] MEDS ORDERED: SODIUM ZIRCONIUM CYCLOSILICATE (LOKELMA) 5 GM PACKET PO ONE (00:47)
[2019-02-09] MEDS: INSULIN SLIDING SCALE (NOVOLOG) 1 VIAL SQ SCH ×2 (06:53→11:04)
[2019-02-09] MEDS ORDERED: oxyCODONE HCL 5 MG TABLET PO ONE ×2 (08:59→09:30)
[2019-02-09 09:18] LABS: ACTIVATED PTT 35.2 SECONDS (25.2-36.5)
[2019-02-09 09:21] LABS: BASO % 0.5 % (0-2.0); HEMATOCRIT 34.5 % (35.4-49); HEMOGLOBIN 11.4 GM/dl (11.7-16.9); LYMPH % 14.6 % (8-40); MCH 29.4 pg (25.7-33.7); MCHC 33.1 g/dl (32.0-35.9); MONO % 7.5 % (3.8-10.2); NEUT % 75.4 % (42.8-82.8); PLATELET COUNT 245 K/MM3 (134-434); RBC 3.88 M/mm3 (4.00-5.60); RDW 16.5 % (11.9-15.9)
[2019-02-09 09:22] LABS: ALBUMIN 3.4 g/dl (3.4-5.0); CALCIUM 9.7 mg/dl (8.5-10); CREATININE 2.5 mg/dl (0.55-1.3); MAGNESIUM 1.8 mg/dL (1.8-2.4); PHOSPHOROUS 3.7 mg/dl (2.5-4.9); POTASSIUM 5.6 mmol/L (3.5-5.1); TOT PROT 6.9 g/dl (6.4-8.2)
[2019-02-09 09:23] LABS: INR 1.16 (0.82-1.09); PROTHROMBIN TIME (PATIENT) 12.9 SEC (10.2-13.0)
[2019-02-09] MEDS ORDERED: PREGABALIN 25 MG CAPSULE PO SCH (10:00)
[2019-02-09] MEDS ORDERED: CARVEDILOL 25 MG TABLET (FP) PO SCH (10:00)
[2019-02-09] MEDS ORDERED: PATIENT'S OWN MEDICATION (NON-FORMULARY) (Losartan Potassium [Losartan Potassium] 100 MG) PO SCH (10:00)
[2019-02-09] MEDS ORDERED: SODIUM POLYSTYRENE SULFONATE 15 GM/60 ML BOTTLE PO ONE (10:52)
--- NOTE | 2019-02-09 12:35 | EKG ---
Test Reason : Blood Pressure : / mmHG Vent. Rate : 061 BPM Atrial Rate : 061 BPM P-R Int : 226 ms QRS Dur : 116 ms QT Int : 424 ms P-R-T Axes : 058 073 042 degrees QTc Int : 426 ms SINUS RHYTHM WITH 1ST DEGREE A-V BLOCK NON-SPECIFIC INTRA-VENTRICULAR CONDUCTION DELAY WHEN COMPARED WITH ECG OF 01-FEB-2019 21:29, NO SIGNIFICANT CHANGE WAS FOUND Confirmed by HEIDI FANG, ANDREA ([id number]) on 02/09/2019 12:34:58 PM Referred By: DR Santos THOMPSON Confirmed By:ANDREA GORDON MD
[2019-02-09] MEDS ORDERED: NITROGLYCERIN 0.4 MG/HOUR TD PATCH TD SCH (22:00)
[2019-02-09] MEDS ORDERED: ASPIRIN 81 MG CHEWABLE TABLETS PO SCH (22:00)
--- NOTE | 2019-02-10 12:57 | DS ---
Physical Exam: SUBJECTIVE: Patient seen and examined OBJECTIVE: PHYSICAL EXAM GENERAL: The patient is awake, alert, and fully oriented, in no acute distress. HEAD: Normal with no signs of trauma. EYES: PERRL, extraocular movements intact, sclera anicteric, conjunctiva clear. ENT: Ears normal, nares patent, oropharynx clear without exudates, moist mucous membranes. NECK: Trachea midline, full range of motion, supple. LUNGS: Breath sounds equal, clear to auscultation bilaterally, no wheezes, no crackles, no accessory muscle use. HEART: Regular rate and rhythm, S1, S2 without murmur, rub or gallop. ABDOMEN: Soft, nontender, nondistended, normoactive bowel sounds, no guarding, no rebound, no hepatosplenomegaly, no masses. EXTREMITIES: 2+ pulses, warm, well-perfused, positive edema, non- pitting NEUROLOGICAL: Cranial nerves II through XII grossly intact. Normal speech, gait not observed. PSYCH: Normal mood, normal affect. SKIN: Warm, dry, normal turgor, no rashes or lesions noted. LABS Laboratory Results - last 24 hr 02/09/19 08:50 B-Natriuretic Peptide 3124.8 H HOSPITAL COURSE: Date of Admission:02/08/19 Date of Discharge: 02/10/19 Minutes to complete discharge: 45 Discharge Summary Reason For Visit: ACUTE KIDNEY INJURY,CHRONIC KIDNEY DISEASE, High K Hospital Course: This is a 68 year-old male with a PMH significant for HTN, HLD, CAD s/p CABG x 4 , carotid artery stenosis,diastolic HF, CKD, gout, Type II NIDDM, diabetic neprhopathy,testicular cancer s/p resection, lymphoma, depression, and opiate dependency. Patient presented to the [place] ED on 02/08/19 for abdominal cellulitis. He was treated and discharged with a prescription for Bactrim. He was seen in followup yesterday by Dr. Jacob Camacho who radha labs, advised patient today to come to ED for a potassium of 7. In ER, K 6.9, BUN/Cr 47/2.7. ECG: no acute ischemic changes, T waves nonspecific Pt received Calcium gluconate 1g x 1,Novolog insulin 10U x 1; D50. Repeat K 6 , s/p Lokelma. Rpt K 5.6, EKG repeated no acute ST changes, s/p Kayexelate, rec followup on K with PMD. *LLQ abdominal cellulitis: Took Bactrim x 7 days; stopped now due to hyperKalemia. CT abdomen/ pelvis revealed1.4stable adrenal adenoma,subcutaneous abdominal edema consistent with known cellulitis. Remains afebrile with no leukocytosis, will hold off antibiotics and out pt followup. *Chronic kidney disease,Diabetic nephropathy-Cr 2.7 on admission, Rpt 2.5 ( baseline ~2) *Type II NIDDM: BS stable,will resume on home meds *Hypertension: Initially, elevated BP, improved now, will cont on home meds. *Hyperlipidemia" Will continue Lipitor *Coronary artery disease,Carotid artery stenosis: Will continue carvedilol, ASA , Lipitor *Diastolic heart failure- stable , BNP 3124, Echo on 09/12/18 moderate cLVH, LV normal; RV normal; mild to moderate MR; mild TR; RVSP elevated; mild AI; mild to moderate PI: Will cotn on home meds and out pt cardiology followup. *Opiate dependency: Pt was detoxed 1 month ago? off oxycontin , s/p steroid by pain management ?Dr. Pruitt Condition: Stable - Instructions Diet, Activity, Other Instructions: Renal diet Low potassium Followup renal functions nad [facility] Dr. Camacho on Monday. Referrals: Malcolm Paulino MD [Staff Physician] - (in 1-2 weeks) Jacob Camacho MD [Primary Care Provider] - (on Monday ) Disposition: HOME - Home Medications Comprehensive Discharge Medication List: Ambulatory Orders Aspirin [ASA -] 81 mg PO HS 09/20/15 Atorvastatin Ca [Lipitor] 80 mg PO HS 09/20/15 Carvedilol 25 mg PO BID 09/20/15 Cholecalciferol (Vitamin D3) [D3-2000] 2,000 unit PO DAILY 09/20/15 Nitroglycerin Sublingual [Nitrostat -] 0.4 mg SL [id number] PRN #30 tab 10/07/16 Kr[place]/Om-3/Dha/Epa/Phospho/Ast [Krill Oil 500 mg Softgel] 1 each PO BID Multivit-Min/FA/Lycopen/Lutein [Centrum Silver Men Tablet] 1 each PO DAILY 11/22 Nitroglycerin Patch [Nitro-Dur Patch -] 0.4 mg TD HS 11/22/17 Ferrous Sulfate [Iron] 325 mg PO DAILY 07/27/18 [place]-3 Acid Ethyl Esters [Lovaza -] 1,000 mg PO DAILY 07/27/18 Ascorbic Acid [Vitamin C -] 500 mg PO DAILY tablet 09/15/18 Blood Sugar Diagnostic [Glucose Test Strip] 1 each ACHS #30 strip 09/21/18 Duloxetine HCl [Cymbalta] 60 mg PO HS 02/08/19 Losartan Potassium 100 mg PO DAILY 02/08/19 Pregabalin [Lyrica] 25 mg PO BID 02/08/19 Sitagliptin Phosphate [Januvia] 50 mg PO DAILY 02/08/19 This patient is new to me today: Yes Date on this admission: 02/10/19 Emergency Visit: Yes ED Registration Date: 02/08/19 Care time: The patient presented to the Emergency Department on the above date and was hospitalized for further evaluation of their emergent condition. Critical Care patient: No - Discharge Referral Referred to [facility] Med P.C.: No
--- NOTE | 2019-02-11 13:48 | EKG ---
Test Reason : Blood Pressure : / mmHG Vent. Rate : 059 BPM Atrial Rate : 059 BPM P-R Int : 194 ms QRS Dur : 122 ms QT Int : 428 ms P-R-T Axes : 074 072 030 degrees QTc Int : 423 ms SINUS BRADYCARDIA NON-SPECIFIC INTRA-VENTRICULAR CONDUCTION DELAY BORDERLINE ECG WHEN COMPARED WITH ECG OF 08-FEB-2019 10:29, [place] INTERVAL HAS DECREASED Confirmed by PATRICIA SCHAEFFER MD ([id number]) on 02/11/2019 1:47:38 PM Referred By: Confirmed By:PATRICIA SCHAEFFER MD
== END 2019-02-09 14:12 | disposition home or self-care (01) | DRG 641 ==
LOC: FER 10:00 → FM/S 12:58
PROVIDERS: ADMIT Internal Medicine; ATTEND Nurse Practitioner Family
DX: E87.5 Hyperkalemia (principal); N17.9 Acute kidney failure, unspecified; I13.0 Hypertensive heart and chronic kidney disease with heart failure and stage 1 through stage 4 chronic kidney disease, or unspecified chronic kidney disease; F11.20 Opioid dependence, uncomplicated; L03.311 Cellulitis of abdominal wall; I25.10 Atherosclerotic heart disease of native coronary artery without angina pectoris; Z95.1 Presence of aortocoronary bypass graft; E78.5 Hyperlipidemia, unspecified; M10.9 Gout, unspecified; E11.22 Type 2 diabetes mellitus with diabetic chronic kidney disease; N18.9 Chronic kidney disease, unspecified; I50.9 Heart failure, unspecified; F32.9 Major depressive disorder, single episode, unspecified; Z85.47 Personal history of malignant neoplasm of testis; E11.21 Type 2 diabetes mellitus with diabetic nephropathy
CPT/HCPCS: 36415; 71045-TC-FY; 74176-TC; 80053; 81003; 81015; 82550; 82962; 83735; 83880; 84100; 84484; 85025; 85610; 85730; 93005; 99285-25; J7030

== ENCOUNTER 2019-04-06 14:54 | Inpatient (IN) | payer BC, OTHER ==
--- NOTE | 2019-04-06 16:26 | PDOC ---
History of Present Illness - General Chief Complaint: Chest Pain Stated Complaint: CHEST PAIN Time Seen by Provider: 04/06/19 15:55 History Source: Patient, Spouse Exam Limitations: No Limitations - History of Present Illness Initial Comments: 04/06/19 18:02 Mr. Carolina is a 68 y/o man with hx renal failure, testicular CA in remission, inferior heart defect, DM, migraine headaches presenting with four days of chest pain, shortness of breath, and increased lower extremity edema. He reports that he regularly uses a nitroglycerin patch nightly, and additionally has a nitroglycerin pill for worsening angina. He reports that four days ago we awoke at 0200, feeling pressure in his chest, and took one nitro pill which alleviated his symptoms. The following night, he again awoke, this time necessitating two nitro pills to alleviate his symptoms. Last night he woke up, and took four nitroglycerin pills which did not alleviate his chest pain. He became concerned when today the pain had not resolved, and took one pill of oxycontin approx 12 hours before his arrival to the ED. Additionally, he began having increased bilateral lower extremity four days ago, and has had difficulty laying flat secondary to shortness of breath. He denies any chest pain at this time, but endorses ongoing chest discomfort which he attributes to the oxy masking his pain. Mr. Carolina reports that he refuses dialysis, will continue to refuse dialysis , and will refuse surgical intervention if it becomes indicated. PCP: Dr. Jacob Layton Cardio: Dr. Barajas Past History - Past Medical History Allergies/Adverse Reactions: Allergies Allergy/AdvReac Type Severity Reaction Status Date / Time [id number]-tryptophan Allergy diarrhea, Verified 04/06/19 15:48 (oxitriptan) vomiting aspartame Allergy headache Verified 04/06/19 15:48 banana Allergy Verified 04/06/19 15:48 Penicillins Allergy Rash Verified 04/06/19 15:48 sumatriptan [From Imitrex] Allergy Verified 04/06/19 15:48 sumatriptan succinate Allergy Verified 04/06/19 15:48 [From Imitrex] Home Medications: Ambulatory Orders Aspirin [ASA -] 81 mg PO HS 09/20/15 Atorvastatin Ca [Lipitor] 80 mg PO HS 09/20/15 Carvedilol 25 mg PO BID 09/20/15 Cholecalciferol (Vitamin D3) [D3-2000] 200 unit PO DAILY 09/20/15 Nitroglycerin Sublingual [Nitrostat -] 0.4 mg SL [id number] PRN #30 tab 10/07/16 Multivit-Min/FA/Lycopen/Lutein [Centrum Silver Men Tablet] 1 each PO DAILY 11/22 Nitroglycerin Patch [Nitro-Dur Patch -] 0.4 mg TD HS 11/22/17 Ferrous Sulfate [Iron] 325 mg PO DAILY 07/27/18 Ascorbic Acid [Vitamin C -] 500 mg PO DAILY tablet 09/15/18 Blood Sugar Diagnostic [Glucose Test Strip] 1 each ACHS #30 strip 09/21/18 Duloxetine HCl [Cymbalta] 60 mg PO HS 02/08/19 Losartan Potassium 50 mg PO BID 02/08/19 Pregabalin [Lyrica] 25 mg PO BID 02/08/19 Sitagliptin Phosphate [Januvia] 50 mg PO DAILY 02/08/19 Anemia: No Asthma: No Cancer: Yes (TESTICULAR ca with lymph node dissection) Cardiac Disorders: Yes (MD 2014) CVA: Yes (TIA 05/2011) COPD: No CHF: No Dementia: No Diabetes: Yes GI Disorders: Yes (GASTRITIS, SPASTIC COLON, GERD; COLON POLYPS) Disorders: Yes (kidney failure) HTN: Yes Hypercholesterolemia: Yes Kidney Stones: Yes Liver Disease: No Seizures: No Thyroid Disease: No - Surgical History Abdominal Surgery: Yes Appendectomy: No Cardiac Surgery: Yes (quad bypass 2014) Cholecystectomy: Yes Lung Surgery: No Neurologic Surgery: Yes (HERNIATED DISC; BRAIN SURGERY INFANT) Orthopedic Surgery: Yes (KNEE ARTHROSCOPY R/L) - Immunization History Td Vaccination: Yes TDAP Vaccination: Yes Immunization Up to Date: Yes - Suicide/Smoking/Psychosocial Hx Smoking Status: No Smoking History: Never smoked Have you smoked in the past 12 months: No Number of Cigarettes Smoked Daily: 0 If you are a former smoker, when did you quit?: 50 years ago Cigars Per Day: 0 Hx Alcohol Use: No Drug/Substance Use Hx: No Substance Use Type: None Hx Substance Use Treatment: No *Physical Exam - Vital Signs Last Vital Signs Temp Pulse Resp BP Pulse Ox 98.5 F 76 20 189/79 H 96 04/06/19 15:48 04/06/19 15:48 04/06/19 15:48 04/06/19 15:48 04/06/19 15:48 ED Treatment Course - LABORATORY CBC & Chemistry Diagram: 04/06/19 17:48 04/06/19 17:48 Medical Decision Making - Medical Decision Making 04/06/19 18:43 68 y/o M with hx HTN, CHF, CKD p/w four days of ongoing chest pain alongside bilateral LE edema and SOB while laying flat, consistent with CHF exacerbation vs volume overload secondary to renal failure. Plan: CBC CMP Cardiac Profile Coags EKG CXR Mg Dispo: Admit --- BP measure 210/90, additional dose of home carvedilol 25mg ordered. --- Portable CXR completed, plan for admission.
[2019-04-06 17:58] LABS: BASO % 0.6 % (0-2.0); EOS % 2.2 % (0-4.5); HEMATOCRIT 30.6 % (35.4-49); HEMOGLOBIN 10.3 GM/dL (11.7-16.9); LYMPH % 20.9 % (8-40); MCH 30.2 pg (25.7-33.7); MCHC 33.8 g/dl (32.0-35.9); MEAN CELL VOLUME 89.3 fl (80-96); MONO % 11.9 % (3.8-10.2); NEUT % 64.4 % (42.8-82.8); PLATELET COUNT 201 K/MM3 (134-434); RBC 3.42 M/mm3 (4.00-5.60); RDW 14.7 % (11.9-15.9); WHITE BLOOD COUNT 9.5 K/mm3 (4.0-10.0)
[2019-04-06 18:13] LABS: INR 1.08 (0.83-1.09); PROTHROMBIN TIME (PATIENT) 12.8 SEC (9.7-13.0)
--- NOTE | 2019-04-06 18:27 | PDOC ---
Documentation entered by Juarez Bean SCRIBE, acting as scribe for Juan M Jaeger MD. Juan M Jaeger MD: This documentation has been prepared by the Vikas edmond Nirvannie, SCRIBE, under my direction and personally reviewed by me in its entirety. I confirm that the documentation accurately reflects all work, treatment, procedures, and medical decision making performed by me. Attending Attestation - Resident Resident Name: ChuyRenard - ED Attending Attestation I have performed the following: I have examined & evaluated the patient, The case was reviewed & discussed with the resident, I agree w/resident's findings & plan, Exceptions are as noted - HPI HPI: 04/06/19 18:13 The patient is a 68 year old male, with a significant past medical history of DM2, CAD (s/p 4V CABG 2016 at [facility]), diastolic CHF, CKD (baseline cr 2.0), TIA, HTN, Testicular CA, who presents to the emergency department with, chest pain. As per patient, today he used Nitroglycerin x4 times with minimal relief with associated dyspnea upon exertion, prompting his arrival to the ED. Patient notes daily episodes of chest pain primarily at night which is resolved after 1- 2 sublingual Nitroglycerins. He denies any increased pain, nausea, vomiting, or diarrhea. Primary Care Physician: Dr. Jacob Camacho Cigarette Inspector: Dr. Olivas - Physicial Exam PE: 04/06/19 18:01 GENERAL: The patient is awake, alert, and fully oriented, Nontoxic - in no acute distress. HEAD: Normocephalic, atraumatic. LUNGS: Breath sounds equal, clear to auscultation bilaterally. No wheezes, no rhonchi, no rales. HEART: Regular rate and rhythm, normal S1 and S2 without murmur, rub or gallop. ABDOMEN: Soft, nontender, No guarding, no rebound. No CVA tenderness EXTREMITIES: Normal range of motion, +3 pitting edmea b/l in LE - Medical Decision Making 04/06/19 18:23 68y M hx cad here with cp, exertional schwarz that has been worsening no active cp here concern for acs anticipate admission for further management Heart Score/ECG Review - ECG Impressions Comment:: 04/06/19 18:26 Twelve-lead EKG was performed and reviewed by me. There is normal sinus rhythm with a normal rate. rate of 76 1st degreee av block nonspecific iv conduction delay nonspecific st changes
[2019-04-06 18:28] LABS: ALBUMIN 2.4 g/dl (3.4-5.0); BILIRUBIN,TOTAL 0.7 mg/dL (0.2-1); BLOOD UREA NITROGEN 29.5 mg/dL (7-18); CALCIUM 8.9 mg/dL (8.5-10.1); CREATININE 2.2 mg/dL (0.55-1.3); POTASSIUM 3.4 mmol/L (3.5-5.1); TOT PROT 5.7 g/dl (6.4-8.2)
[2019-04-06] MEDS ORDERED: CARVEDILOL 25 MG TABLET (FP) PO ONE (18:40)
[2019-04-06] MEDS ORDERED: CARVEDILOL 12.5 MG TABLET (FP) ONE ×2 (18:47→21:57)
--- NOTE | 2019-04-06 19:15 | PN ---
Teaching Attending Note Name of Resident: Lilliana Patterson ATTENDING PHYSICIAN STATEMENT I saw and evaluated the patient. I reviewed the resident's note and discussed the case with the resident. I agree with the resident's findings and plan as documented. SUBJECTIVE: Patient is a 68 year old man with a PMH of NIDDM, CAD (s/p 4 Vessel CABG 2016 at [facility]), Diastolic CHF, CKD (baseline cr 2.0), TIA, HTN, Testicular cancer with lymphnode dissection, Penicillin allergy, ?gout, ?afib, restless leg syndrome, and internal hemorrhoids (rectal bleeding) who presents to the ER with chest pain. As per patient, today he used Nitroglycerin x4 times with minimal relief with associated dyspnea upon exertion, prompting his arrival to the ER. Patient notes daily episodes of chest pain primarily at night which is resolved after 1- 2 sublingual Nitroglycerins. Last night he woke up, and took four nitroglycerin pills which did not alleviate his chest pain. He became concerned when today the pain had not resolved, and took one pill of oxycontin approx 12 hours before his arrival to the ER. Additionally, he began having increased bilateral lower extremity four days ago, and has had difficulty laying flat secondary to shortness of breath. He denies any chest pain at this time, but endorses ongoing chest discomfort which he attributes to the oxycontin masking his pain. He says he refused dialysis, will continue to refuse dialysis, and will refuse surgical intervention if it becomes indicated. He denies any increased pain, nausea, vomiting, dysuria or diarrhea. OBJECTIVE: Alert Vital Signs Period Temp Pulse Resp BP Sys/Guo Pulse Ox Last 24 Hr 98.3 F-98.5 F 69-76 20-20 189-208/79-83 95-96 HEENT: No Jaundice, eye redness or discharge, PERRLA, EOMI. Normocephalic, atraumatic. External ears are normal and hearing is grossly intact. No nasal discharge. Neck: Supple, nontender. No palpable adenopathy or thyromegaly. No JVD Chest: Good effort. Diminished breath sounds. Clear to percussion. Heart: Regular. No S3, rub or murmur Abdomen: Not distended, soft, nontender and no HSM. No rebound or guarding. Normal bowel sounds. Ext: Peripheral pulses intact. Leg edema. Skin: Warm and dry. No petechiae, rash or ecchymosis. Neuro: Alert. Oriented x3. CN 2-12 grossly intact. Sensation grossly intact in all four extremities and DTR are symmetric. Psych: Appropriate mood and affect. Good insight. Home Medications Medication Instructions Recorded Aspirin [ASA -] 81 mg PO HS 09/20/15 Atorvastatin Ca [Lipitor] 80 mg PO HS 09/20/15 Carvedilol 25 mg PO BID 09/20/15 Cholecalciferol (Vitamin D3) 200 unit PO DAILY 09/20/15 [D3-2000] Nitroglycerin Sublingual 0.4 mg SL [id number] PRN #30 tab 10/07/16 [Nitrostat -] Multivit-Min/FA/Lycopen/Lutein 1 each PO DAILY 11/22/17 [Centrum Silver Men Tablet] Nitroglycerin Patch [Nitro-Dur 0.4 mg TD HS 11/22/17 Patch -] Ferrous Sulfate [Iron] 325 mg PO DAILY 07/27/18 Ascorbic Acid [Vitamin C -] 500 mg PO DAILY tablet 09/15/18 Blood Sugar Diagnostic [Glucose 1 each ACHS #30 strip 09/21/18 Test Strip] Duloxetine HCl [Cymbalta] 60 mg PO HS 02/08/19 Losartan Potassium 50 mg PO BID 02/08/19 Pregabalin [Lyrica] 25 mg PO BID 02/08/19 Sitagliptin Phosphate [Januvia] 50 mg PO DAILY 02/08/19 Abnormal Lab Results 04/06/19 04/06/19 17:48 17:48 RBC 3.42 L Hgb 10.3 L Hct 30.6 L Monocytes % 11.9 H Potassium 3.4 L Chloride 109 H Anion Gap 5 L BUN 29.5 H Creatinine 2.2 H Random Glucose 157 H AST 12 L Total Protein 5.7 L Albumin 2.4 L ASSESSMENT AND PLAN: 1. Chest pain/CHF exacerbation - Has risk factors for ACS. EKG shows NSR with 1o AV block with no significant ST-T wave changes. Initial troponin is negative. Will admit to telemetry to rule out ACS. ECHO from 09/12/18 showed moderate LV concentric hypertrophy and normal LV ejection fraction. CXR shows cardiomegaly, pulmonary congestion and possible left pleural effusion. Likely has fluid retention due to CKD causing exacerbation of LV diastolic dysfunction. Will continue diuresis with escalating doses of IV lasix, restrict dietary salt intake and get daily standing weight. Control pain with IV morphine, repeat ECHO and consult cardiology. Mild hypokalemia likely due to diuretic effect and poor intake. Will check serum Mg+ and give oral KCL. 2. Hypoalbuminemia - Possibly due to combined effects of malnutrition and inflammation associated with comorbid chronic conditions. Will ensure adequate dietary protein intake and also consult drivematic machine operator. 3. DM For now, we will hold the home diabetes drugs and implement sliding scale insulin regimen. Provide comprehensive diabetes care with patient teaching and counseling about the importance of adherence to prescribed diabetes regimen, euglycemia, eye care and foot care. 4. CKD - Has risk factors for CKD. Will avoid nephrotoxic agents such as NSAIDS , aminoglycosides, contrast dyes and certain Alternative medicine products. 5. Anemia - Likely partly due to CKD. Will do basic anemia work up including serial stool guaiacs, reticulocyte count and iron studies. Would benefit from Procrit therapy once iron replete. 6. Obesity Counseled on the risks associated with obesity. Will provide patient all the necessary assistance, counseling and positive reinforcement to facilitate weight loss. Consult drivematic machine operator. 7. Hypertension - Restart suitable outpatient antihypertensive drugs when clinically appropriate. Revise regimen to ensure [id number] excellent BP control and child guidance counselor patient on the injurious effects of uncontrolled hypertension. Nonpharmacologic measures to control hypertension like weight loss , salt restriction and exercise discussed. Importance of adherence to treatment regimen and attainment of normotension emphasized. 8. DVT prophylaxis - Heparin 5000u sq tid. 9. Advance directives - DNR/DNI
[2019-04-06] MEDS ORDERED: LOSARTAN POTASSIUM 50 MG TABLET (FP) PO ONE (19:23)
--- NOTE | 2019-04-06 19:25 | PDOC ---
*Physical Exam - Vital Signs Last Vital Signs Temp Pulse Resp BP Pulse Ox 98.3 F 69 20 208/83 H 95 04/06/19 18:32 04/06/19 18:32 04/06/19 18:32 04/06/19 18:32 04/06/19 18:32 ED Treatment Course - LABORATORY CBC & Chemistry Diagram: 04/06/19 17:48 04/06/19 17:48 - ADDITIONAL ORDERS Additional order review: Laboratory Results 04/06/19 04/06/19 04/06/19 17:48 17:48 17:48 PT with INR 12.80 INR 1.08 Sodium 144 Potassium 3.4 L Chloride 109 H Carbon Dioxide 30 Anion Gap 5 L BUN 29.5 H Creatinine 2.2 H Est GFR (CKD-EPI)AfAm 34.64 Est GFR (CKD-EPI)NonAf 29.89 Random Glucose 157 H Calcium 8.9 Magnesium 2.1 Total Bilirubin 0.7 AST 12 L ALT 17 Alkaline Phosphatase 97 Creatine Kinase 104 Troponin I 0.03 Total Protein 5.7 L Albumin 2.4 L 04/06/19 17:48 RBC 3.42 L MCV 89.3 MCHC 33.8 RDW 14.7 MPV 8.0 Neutrophils % 64.4 Lymphocytes % 20.9 D Monocytes % 11.9 H Eosinophils % 2.2 Basophils % 0.6 - Medications Given in the ED: ED Medications Discontinued Medications Generic Name Dose Route Start Last Admin Trade Name Freq PRN Reason Stop Dose Admin Carvedilol 25 mg 04/06/19 18:40 04/06/19 18:49 Coreg - PO 04/06/19 18:41 25 mg ONCE ONE Administration Medical Decision Making - Medical Decision Making 04/06/19 19:24 Repeat BP 216/87, given carvedilol 10m ago, ordered evening home dose 50 losartan Cr 2.2, trop neg CXR lj basilar infiltrates, EKG unchanged DNR/DNI, refuses surgery/dialysis 815pm - complains of dysphagia, SOB, O2 sat 86. Pt endorsed symptoms daily for last week placed on 4L NC w O2 sat upt o 95, given 40 lasix Received signout from Dr David Agee. Admitted to inpatient for CHF exacerbation, CKD. *DC/Admit/Observation/Transfer Diagnosis at time of Disposition: Congestive heart failure Qualifiers: Heart failure type: unspecified Heart failure chronicity: unspecified Qualified Code(s): I50.9 - Heart failure, unspecified CKD (chronic kidney disease) Qualifiers: Chronic kidney disease stage: unspecified stage Qualified Code(s): N18.9 - Chronic kidney disease, unspecified - Discharge Dispostion Condition at time of disposition: Improved - Referrals - Patient Instructions - Post Discharge Activity
[2019-04-06] MEDS ORDERED: LOSARTAN POTASSIUM 50 MG TABLET (FP) ONE ×2 (19:26→21:57)
[2019-04-06] MEDS ORDERED: FUROSEMIDE 100 MG/10 ML INJECTABLE VIAL IVPB ONE (20:17)
[2019-04-06] MEDS ORDERED: FUROSEMIDE 40 MG/4 ML INJECTABLE VIAL ONE (20:30)
[2019-04-06] MEDS ORDERED: NITROGLYCERIN SUBLINGUAL 1/150 0.4 MG TAB SL PRN (20:49)
[2019-04-06] MEDS ORDERED: INSULIN (NOVOLOG) ASPART 100 UNITS/ML 10ML VIAL ONE (21:57)
[2019-04-06] MEDS ORDERED: ASPIRIN 81 MG CHEWABLE TABLETS ONE (21:57)
[2019-04-06] MEDS ORDERED: PREGABALIN 25 MG CAPSULE ONE (21:57)
[2019-04-06] MEDS ORDERED: HEPARIN NA (PORCINE) 5,000 UNITS/ML 1ML VIAL ONE (21:58)
[2019-04-06] MEDS ORDERED: DULoxetine HCL 30 MG CAPSULE.DR PO ONE (21:58)
[2019-04-06] MEDS ORDERED: PATIENT'S OWN MEDICATION (NON-FORMULARY) (Losartan Potassium [Losartan Potassium] 50 MG) PO SCH (22:00)
[2019-04-06] MEDS ORDERED: ATORVASTATIN CA 80 MG TABLET (FP) ONE (22:23)
[2019-04-06] MEDS: HEPARIN NA (PORCINE) 5,000 UNITS/ML 1ML VIAL SQ SCH (22:29)
[2019-04-06] MEDS: ATORVASTATIN CA 80 MG TABLET (FP) PO SCH (22:29)
[2019-04-06] MEDS: CARVEDILOL 25 MG TABLET (FP) PO SCH (22:29)
[2019-04-06] MEDS: ASPIRIN 81 MG CHEWABLE TABLETS PO SCH (22:29)
[2019-04-06] MEDS: LOSARTAN POTASSIUM 50 MG TABLET (FP) PO SCH (22:29)
[2019-04-06] MEDS: DULoxetine HCL 60 MG CAPSULE.DR PO SCH (22:29)
[2019-04-06] MEDS: PREGABALIN 25 MG CAPSULE PO SCH (22:29)
[2019-04-06] MEDS: INSULIN SLIDING SCALE (NOVOLOG) 1 VIAL SQ SCH (22:30)
--- NOTE | 2019-04-06 22:43 | HP ---
CHIEF COMPLAINT:chest pain PCP:Dr. Cindy Camacho CArdio: Dr. Olivas Nephro: Dr. Paulino. HISTORY OF PRESENT ILLNESS: Patient is a 68 year old male with past medical history of DM, CAD (s/p 4v CABG in 2016), diastolic CHF, CKD, HTN, testicular cancer, chronic pain, presented to the ED due to persistent left sided chest pressure radiating to the left arm and shortness of breath in the last 4 days. Patient reported he has been having intermittent chest pain for the past few years when he was told to have an "abnormal left lower part of the heart", and that he "needed surgery, but is not a candidate for it". Patient would usually take nitroglycerin patch and SL and the pain would be slightly relieved. Today, patient took the medications, but did not experience any relief of pain, hence he came to the ED. Of note, patient was seen 6 months ago for CKD, where he was offered dialysis, but refused. He was discharged to a hospice facility, where he stayed for a few months. Patient denies any fever, chills, headache, dizziness, abdominal pain, diarrhea, dysuria, hematuria. ER course was notable for: (1)Trop neg x1 (2)Lasix 40mg Iv x1 (3) Recent Travel:denies PAST MEDICAL HISTORY: DM CAD (s/p 4v CABG in 2016) diastolic CHF CKD HTN testicular cancer chronic pain PAST SURGICAL HISTORY: 2007 right knee surgery 2011 L-spine surgery 2013 oral surgery c/b infection to [facility] 1984/1985 testicular cancer s/p right orchiectomy with prosthesis implant 1994 spinal surgery for C6-7 herniated disc 1998 hemorrhoidectomy 2000 spinal surgery C5-C6 disc herniation 2006 spinal surgery for herniated discs (? location) Brain surgery as a child abdominal surgery to remove affected lymph nodes due to metastatic testicular cancer Social History: Smoking:quit >20 years ago Alcohol:denies Drugs: denies Family History:noncontributory Allergies 0-lyidtll-K-tryptophan (oxitriptan) Allergy (Verified 04/06/19 15:48) diarrhea, vomiting aspartame Allergy (Verified 04/06/19 15:48) headache banana Allergy (Verified 04/06/19 15:48) Penicillins Allergy (Verified 04/06/19 15:48) Rash sumatriptan [From Imitrex] Allergy (Verified 04/06/19 15:48) sumatriptan succinate [From Imitrex] Allergy (Verified 04/06/19 15:48) HOME MEDICATIONS: Home Medications Medication Instructions Recorded Aspirin [ASA -] 81 mg PO HS 09/20/15 Atorvastatin Ca [Lipitor] 80 mg PO HS 09/20/15 Carvedilol 25 mg PO BID 09/20/15 Cholecalciferol (Vitamin D3) 200 unit PO DAILY 09/20/15 [D3-2000] Nitroglycerin Sublingual 0.4 mg SL [id number] PRN #30 tab 10/07/16 [Nitrostat -] Multivit-Min/FA/Lycopen/Lutein 1 each PO DAILY 11/22/17 [Centrum Silver Men Tablet] Nitroglycerin Patch [Nitro-Dur 0.4 mg TD HS 11/22/17 Patch -] Ferrous Sulfate [Iron] 325 mg PO DAILY 07/27/18 Ascorbic Acid [Vitamin C -] 500 mg PO DAILY tablet 09/15/18 Blood Sugar Diagnostic [Glucose 1 each ACHS #30 strip 09/21/18 Test Strip] Duloxetine HCl [Cymbalta] 60 mg PO HS 02/08/19 Losartan Potassium 50 mg PO BID 02/08/19 Pregabalin [Lyrica] 25 mg PO BID 02/08/19 Sitagliptin Phosphate [Januvia] 50 mg PO DAILY 02/08/19 REVIEW OF SYSTEMS CONSTITUTIONAL: Absent: fever, chills, diaphoresis, generalized weakness, malaise, loss of appetite, weight change HEENT: Absent: rhinorrhea, nasal congestion, throat pain, throat swelling, difficulty swallowing, mouth swelling, ear pain, eye pain, visual changes CARDIOVASCULAR: chest pain, peripheral edema Absent: syncope, palpitations, irregular heart rate, lightheadedness RESPIRATORY: shortness of breath Absent: cough, dyspnea with exertion, orthopnea, wheezing, stridor, hemoptysis GASTROINTESTINAL: Absent: abdominal pain, abdominal distension, nausea, vomiting, diarrhea, constipation, melena, hematochezia GENITOURINARY: Absent: dysuria, frequency, urgency, hesitancy, hematuria, flank pain, genital pain MUSCULOSKELETAL: Absent: myalgia, arthralgia, joint swelling, back pain, neck pain SKIN: Absent: rash, itching, pallor HEMATOLOGIC/IMMUNOLOGIC: Absent: easy bleeding, easy bruising, lymphadenopathy, frequent infections ENDOCRINE: Absent: unexplained weight gain, unexplained weight loss, heat intolerance, cold intolerance NEUROLOGIC: Absent: headache, focal weakness or paresthesias, dizziness, unsteady gait, seizure, mental status changes, bladder or bowel incontinence PSYCHIATRIC: Absent: anxiety, depression, suicidal or homicidal ideation, hallucinations. PHYSICAL EXAMINATION Vital Signs - 24 hr 04/06/19 04/06/19 04/06/19 15:48 18:32 19:58 Temperature 98.5 F 98.3 F Pulse Rate 76 Pulse Rate [ 69 73 Apical] Respiratory 20 20 20 Rate Blood Pressure 189/79 H Blood Pressure 208/83 H 172/78 H [Left Arm] O2 Sat by Pulse 96 95 95 Oximetry (%) GENERAL: Awake, alert, and fully oriented, in no acute distress. HEAD: Normal with no signs of trauma. EYES: PERRLA, EOMI, sclera anicteric, conjunctiva clear. EARS, NOSE, THROAT: Moist mucous membranes. NECK: Normal range of motion, supple. LUNGS: Decreased breath sounds on bilateral bases. HEART: Regular rate and rhythm, normal S1 and S2. ABDOMEN: Soft, nontender, not distended, normoactive bowel sound. MUSCULOSKELETAL: Normal range of motion at all joints. UPPER EXTREMITIES: 2+ pulses, warm, well-perfused.No peripheral edema. LOWER EXTREMITIES: 2+ pulses, warm, well-perfused. +2 pitting edema. NEUROLOGICAL: Cranial nerves II-XII intact. Normal speech. Normal gait. PSYCHIATRIC: Cooperative. Good eye contact. SKIN: Warm, dry, normal turgor, no rashes or lesions noted. Laboratory Results - last 24 hr 04/06/19 04/06/19 04/06/19 17:48 17:48 17:48 WBC 9.5 RBC 3.42 L Hgb 10.3 L Hct 30.6 L MCV 89.3 MCH 30.2 MCHC 33.8 RDW 14.7 Plt Count 201 MPV 8.0 Absolute Neuts (auto) 6.1 Neutrophils % 64.4 Lymphocytes % 20.9 D Monocytes % 11.9 H Eosinophils % 2.2 Basophils % 0.6 Nucleated RBC % 0 PT with INR INR Sodium 144 Potassium 3.4 L Chloride 109 H Carbon Dioxide 30 Anion Gap 5 L BUN 29.5 H Creatinine 2.2 H Est GFR (CKD-EPI)AfAm 34.64 Est GFR (CKD-EPI)NonAf 29.89 POC Glucometer Random Glucose 157 H Calcium 8.9 Magnesium 2.1 Total Bilirubin 0.7 AST 12 L ALT 17 Alkaline Phosphatase 97 Creatine Kinase 104 Troponin I 0.03 Total Protein 5.7 L Albumin 2.4 L 04/06/19 04/06/19 17:48 22:08 WBC RBC Hgb Hct MCV MCH MCHC RDW Plt Count MPV Absolute Neuts (auto) Neutrophils % Lymphocytes % Monocytes % Eosinophils % Basophils % Nucleated RBC % PT with INR 12.80 INR 1.08 Sodium Potassium Chloride Carbon Dioxide Anion Gap BUN Creatinine Est GFR (CKD-EPI)AfAm Est GFR (CKD-EPI)NonAf POC Glucometer 197 Random Glucose Calcium Magnesium Total Bilirubin AST ALT Alkaline Phosphatase Creatine Kinase Troponin I Total Protein Albumin ASSESSMENT/PLAN: Patient is a 68 year old male with past medical history of DM, CAD (s/p 4v CABG in 2015), diastolic CHF, CKD, HTN, testicular cancer, chronic pain, presented to the ED due to persistent left sided chest pressure radiating to the left arm and shortness of breath in the last 4 days. #Chest pain rule out ACS -Trop 0.03, will trend x1 -Tele monitoring -Echo ordered -Nitroglycerin patch and SL PRN -Cardiology (Dr. Olivas) consulted. #CKD -Cr 2.2 (Baseline 3-4) -avoid nephrotoxic agents such as NSAIDs, contrast -will continue to monitor renal function #DM -Insulin sliding scale implemented -BGM ACHS #CAD s/p CABG -Continue ASA, Lipitor, Coreg and Losartan #Diastolic CHF -Not on home Lasix in light of CKD -IV Lasix 40mg given at the ED -Echo in 08/2018 showed moderate LV concentric hypertrophy -Will give IV lasix -Monitor I&O -Daily weights #HTN -Continue home medications Coreg and Losartan #Hx of testicular cancer -In remission #Chronic pain -Patient has history of chronic back pain from multiple surgeries -Follows up with pain management -Will give Morphine PRN for pain #FEN -Not on any standing fluids -HypoK, repleted -Routine bmp monitoring -Diabetic/sodium diet #Prophylaxis -Heparin 5000unit sq tid #Disposition -DNR/DNI -tele Visit type - Emergency Visit Emergency Visit: Yes ED Registration Date: 04/06/19 Care time: The patient presented to the Emergency Department on the above date and was hospitalized for further evaluation of their emergent condition. - New Patient This patient is new to me today: Yes Date on this admission: 04/07/19 - Critical Care Critical Care patient: No ATTENDING PHYSICIAN STATEMENT I saw and evaluated the patient. I reviewed the resident's note and discussed the case with the resident. I agree with the resident's findings and plan as documented. SUBJECTIVE: OBJECTIVE: ASSESSMENT AND PLAN:
[2019-04-06] MEDS: NITROGLYCERIN 0.4 MG/HOUR TD PATCH TD SCH (22:46)
[2019-04-07] MEDS ORDERED: POTASSIUM CHLORIDE TABS 20 MEQ TABLET.ER (FP) PO ONE ×2 (02:49→03:51)
[2019-04-07] MEDS ORDERED: ACETAMINOPHEN 325 MG TABLET (FP) ONE (04:47)
[2019-04-07] MEDS: ACETAMINOPHEN 325 MG TABLET (FP) PO PRN (04:50)
[2019-04-07] MEDS: HEPARIN NA (PORCINE) 5,000 UNITS/ML 1ML VIAL SQ SCH ×3 (06:48→22:17)
[2019-04-07] MEDS: INSULIN SLIDING SCALE (NOVOLOG) 1 VIAL SQ SCH ×4 (08:13→22:17)
[2019-04-07] MEDS ORDERED: FUROSEMIDE 40 MG/4 ML INJECTABLE VIAL ONE (08:22)
[2019-04-07 09:02] LABS: BASO % 0.8 % (0-2.0); EOS % 3.4 % (0-4.5); HEMATOCRIT 30.2 % (35.4-49); HEMOGLOBIN 10.4 GM/dL (11.7-16.9); LYMPH % 26.5 % (8-40); MCH 30.5 pg (25.7-33.7); MCHC 34.5 g/dl (32.0-35.9); MEAN CELL VOLUME 88.6 fl (80-96); MONO % 11.2 % (3.8-10.2); NEUT % 58.1 % (42.8-82.8); PLATELET COUNT 207 K/MM3 (134-434); RBC 3.41 M/mm3 (4.00-5.60); RDW 15.2 % (11.9-15.9); WHITE BLOOD COUNT 7.8 K/mm3 (4.0-10.0)
[2019-04-07 09:35] LABS: ALBUMIN 2.3 g/dl (3.4-5.0); BILIRUBIN,TOTAL 0.8 mg/dL (0.2-1); CALCIUM 8.5 mg/dL (8.5-10.1); CREATININE 2.3 mg/dL (0.55-1.3); MAGNESIUM 2.1 mg/dL (1.8-2.4); POTASSIUM 3.3 mmol/L (3.5-5.1); TOT PROT 5.4 g/dl (6.4-8.2)
[2019-04-07] MEDS: FUROSEMIDE 40 MG/4 ML INJECTABLE VIAL IVPUSH SCH ×2 (09:49→11:56)
[2019-04-07] MEDS: FERROUS SO4 325 MG TABLET (FP) PO SCH (09:49)
[2019-04-07] MEDS: CARVEDILOL 25 MG TABLET (FP) PO SCH ×2 (09:49→21:22)
[2019-04-07] MEDS: LOSARTAN POTASSIUM 50 MG TABLET (FP) PO SCH ×2 (09:49→21:22)
[2019-04-07] MEDS: CHOLECALCIFEROL (VIT D SOLUTION) 400 UNIT/1 ML DROPS PO SCH (09:50)
[2019-04-07] MEDS: ASCORBIC ACID 500 MG TABLET (FP) PO SCH (09:50)
[2019-04-07] MEDS: MULTIVITAMINS (DAILY MVI) TABLET (FP) PO SCH (09:50)
[2019-04-07] MEDS ORDERED: PATIENT'S OWN MEDICATION (NON-FORMULARY) (Multivit-Min/Fa/Lycopen/Lutein [Centrum Silver M PO SCH (10:00)
[2019-04-07] MEDS ORDERED: CHOLECALCIFEROL (VIT D3) 400 UNIT (10 MCG) TABLET PO SCH (10:00)
[2019-04-07] MEDS ORDERED: CHOLECALCIFEROL PO SCH (10:00)
[2019-04-07] MEDS ORDERED: PATIENT'S OWN MEDICATION (NON-FORMULARY) (Ferrous Sulfate [Iron] 325 MG) PO SCH (10:00)
[2019-04-07] MEDS: PREGABALIN 25 MG CAPSULE PO SCH ×3 (10:30→21:22)
--- NOTE | 2019-04-07 10:55 | CON.CARD ---
Consult Consult Specialty:: Cardiology Referred by:: ER Reason for Consultation:: chest pain - History of Present Illness Chief Complaint: chest pain History of Present Illness: 68year old man h/o HTN, DMII, CKD, CAD s/p CABG x4 after nstemi 09/2015 at [facility] , nuclear stress test 09/2016 after admission for chest pain, showed inferior/ inferoapical ischemia LVEF 77%, chronic stable angina on NTG patch at home and ntg SL prn, TIA 2000, carotid stenosis s/p CEA 2007, [place], bleeding hemorrhoids s /p 2 complicated colonoscopies in the past, chronic cervical and lumbar disc disease, multiple surgeries and chronic pain, current CKD with nephrotic range proteinurea and chronic b/l LE edema admitted to [facility] 01/23/18 with rectal bleeding, worsening of chronic dyspnea on exertion, and b/l LE edema. Colonoscopy was discussed with pt during that admission but ultimately he declined the procedure given his history of complications with colonoscopy. He was initially treated with IV Lasix but then transitioned to po Lasix to avoid intravascular depletion as it was felt his edema was mainly due to 3rd spacing from nephrotic syndrome as opposed to volume overload. Admitted [facility] 08/19/18 with chest pain, cardiac enzymeswerewnl. Managed medically for presumed angina given CKD. Pt has refused further cardiac interventions including cardiac cath. He previously decided to enter Hospice care.. He was discharged from Hospice after 3 months. He followed up with his investor Dr. Severino and new PMD Dr. Camacho. He had a hospital admission for hyperkalemia. He was seen by Dr Olivas 03/26/19, and now presents with the same complaints of SEYMOUR with minimal exertion as well as continued episodes of chest pain mainly at night. He declines to increase his diuretics as he does not want to effect his creatinine. He has continued b/l LE edema. No pnd, orthopnea. No lightheadedness, dizziness, syncope, or near syncope. Stress test 09/2016inferior/inferoapical ischemia LVEF 77%, managed medically due to rectal bleeding and CKD ECHO 01/24/18- Normal LV systolic function, mod LVH, mild AR, mild TR - History Source History Provided By: Patient, Medical Record - Past Medical History [employer]: Yes: TIA, Other (possible restless leg syndrome) Cardio/Vascular: Yes: CAD, CHF, HTN, Hyperlipdemia, Other (Cardiac arrest 2000 carotid artery stenosis) Pulmonary: Yes: Other (PNA after spinal surgery 2000) Gastrointestinal: Yes: Irritable Bowel Disease Renal/: Yes: Renal Inusuff, Other (testicular cancer) Psych: Yes: Depression Musculoskeletal: Yes: Chronic low back pain, Osteoarthritis, Other (sciatica) Rheumatology: Yes: Gout Endocrine: Yes: Diabetes Mellitus - Past Surgical History Past Surgical History: Yes: CABG, Cholecystectomy (1997) - Alcohol/Substance Use Hx Alcohol Use: No History of Substance Use: reports: None - Smoking History Smoking history: Never smoked Have you smoked in the past 12 months: No Aproximately how many cigarettes per day: 0 If you are a former smoker, when did you quit?: 50 years ago - Social History ADL: Independent History of Recent Travel: No Home Medications - Allergies Allergies/Adverse Reactions: Allergies Allergy/AdvReac Type Severity Reaction Status Date / Time 2-eoenplg-R-tryptophan Allergy diarrhea, Verified 04/06/19 15:48 (oxitriptan) vomiting aspartame Allergy headache Verified 04/06/19 15:48 banana Allergy Verified 04/06/19 15:48 Penicillins Allergy Rash Verified 04/06/19 15:48 sumatriptan [From Imitrex] Allergy Verified 04/06/19 15:48 sumatriptan succinate Allergy Verified 04/06/19 15:48 [From Imitrex] - Home Medications Home Medications: Ambulatory Orders Aspirin [ASA -] 81 mg PO HS 09/20/15 Atorvastatin Ca [Lipitor] 80 mg PO HS 09/20/15 Carvedilol 25 mg PO BID 09/20/15 Cholecalciferol (Vitamin D3) [D3-2000] 200 unit PO DAILY 09/20/15 Nitroglycerin Sublingual [Nitrostat -] 0.4 mg SL [id number] PRN #30 tab 10/07/16 Multivit-Min/FA/Lycopen/Lutein [Centrum Silver Men Tablet] 1 each PO DAILY 11/22 Nitroglycerin Patch [Nitro-Dur Patch -] 0.4 mg TD HS 11/22/17 Ferrous Sulfate [Iron] 325 mg PO DAILY 07/27/18 Ascorbic Acid [Vitamin C -] 500 mg PO DAILY tablet 09/15/18 Blood Sugar Diagnostic [Glucose Test Strip] 1 each ACHS #30 strip 09/21/18 Duloxetine HCl [Cymbalta] 60 mg PO HS 02/08/19 Losartan Potassium 50 mg PO BID 02/08/19 Pregabalin [Lyrica] 25 mg PO BID 02/08/19 Sitagliptin Phosphate [Januvia] 50 mg PO DAILY 02/08/19 Family Disease History - Family Disease History Family Disease History: Diabetes: Mother ( (80s) ), Heart Disease: Father ( (90s)), Other: Sister (alive (69) thyroid disease) Vital Signs: Vital Signs Temperature 97.3 F L 04/07/19 07:01 Pulse Rate 60 04/07/19 07:01 Respiratory Rate 17 04/07/19 07:01 Blood Pressure 175/72 H 04/07/19 07:01 O2 Sat by Pulse Oximetry (%) 97 04/07/19 07:01 Constitutional: Yes: Well Nourished, No Distress, Obese Eyes: Yes: Conjunctiva Clear, EOM Intact HENT: Yes: Normocephalic Neck: Yes: Trachea Midline Respiratory: Yes: CTA Bilaterally Gastrointestinal: Yes: Normal Bowel Sounds, Soft, Abdomen, Obese JVD: Yes Carotid Bruit: No PMI: Non-Displaced Heart Sounds: Yes: S1, S2 Murmur: Yes: Systolic Murmur, Grade 2 Extremities: Yes: WNL Edema: Yes Edema: LLE: 2+, RLE: 2+ Peripheral Pulses WNL: Yes - Other Data Labs, Other Data: CBC, BMP 04/07/19 08:33 04/07/19 08:33 INR, PTT INR 1.08 (0.83-1.09) 04/06/19 17:48 Troponin, BNP 04/06/19 04/07/19 17:48 08:33 Troponin I 0.03 0.02 Troponin, BNP 04/06/19 04/07/19 17:48 08:33 Troponin I 0.03 0.02 Imaging - Results Chest X-ray: Report Reviewed EKG: Report Reviewed Assessment/Plan 68year old man h/o HTN, DMII, CKD, CAD s/p CABG x4 after nstemi 09/2015 at [facility] , nuclear stress test 09/2016 after admission for chest pain, showed inferior/ inferoapical ischemia LVEF 77%, chronic stable angina on NTG patch at home and ntg SL prn, TIA 2000, carotid stenosis s/p CEA 2007, [place], bleeding hemorrhoids s /p 2 complicated colonoscopies in the past, chronic cervical and lumbar disc disease, multiple surgeries and chronic pain, current CKD with nephrotic range proteinurea and chronic b/l LE edema admitted to [facility] 01/23/18 with rectal bleeding, worsening of chronic dyspnea on exertion, and b/l LE edema. Colonoscopy was discussed with pt during that admission but ultimately he declined the procedure given his history of complications with colonoscopy. He was initially treated with IV Lasix but then transitioned to po Lasix to avoid intravascular depletion as it was felt his edema was mainly due to 3rd spacing from nephrotic syndrome as opposed to volume overload. Admitted [facility] 08/19/18 with chest pain, cardiac enzymeswerewnl. Managed medically for presumed angina given CKD. Pt here for outpatient fup. Pt has refused further cardiac interventions including cardiac cath. Since last visit he called and decided to enter Hospice care.. He was discharged from Hospice after 3 months. He followed up with his investor Dr. Severino and new PMD Dr. Camacho. He had a hospital admission for hyperkalemia. He is here today as he has been having SEYMOUR with minimal exertion as well as continued episodes of chest pain mainly at night. He asks if it is ok to take NTG SL on top of the NTG patch he uses. He declines to increase his diuretics as he does not want to effect his creatinine. Continued b/l LE edema. No pnd, orthopnea. No lightheadedness, dizziness, syncope, or near syncope. Stress test 09/2016inferior/inferoapical ischemia LVEF 77%, managed medically due to rectal bleeding and CKD ECHO 01/24/18- Normal LV systolic function, mod LVH, mild AR, mild TR SOB/SEYMOUR-multifactorial, chronic dyspnea with superimposed anemia -Likely multifactorial with a compenent of Chronic diastolic CHF -b/L LE edema likely in large part due to nephrotic syndrome and possible lymphedema -lastecho showed Normal LV systolic function and no sig valvular abnl as above -cont bblocker, ARB -mild pulm edema on exam today, continued b/l LE edema -pt declines to increase his diuretic as he would rather feel SEYMOUR than risk worsening his creatinine. -he plans to see pulmonary to discuss Home O2 which he used while on Hospice care -would not diurese aggresively to avoid intravascular depletion as edema in large part due to 3rd spacing and lymphedema as opossed to volume overload HTN-above goal but he states it varies and is typically significantly better -cont amlodipine 5mg daily -cont Losartan 50mg am and 25mg pm -Cont Coreg 25mg bid and Hydralazine 25mg bid -he is not compliant with lasix. CAD-h/o CABG x4 2015 after NSTEMI and chronic angina with mild ischemia on stress test 09/2016 as above managed medically -chronic stable anginawith recent exacerbations -cont NTG patch. Advised him that he can use NTG SL in addition to NTG patch but with caution as it may precipitate hypotension. -ptrefuses further work up includingcardiac cath given risk of worsening CKD and possible need for HD. -cont bblocker, ARB, statin -contamlodipine -cont ASA as long as no significant rectal bleeding if ok with GI -would try imdur 60 mg daily instead of the patch. He may be tolerant to it at this point. Increase Imdur as tolerated. -will avoid Ranexa for now given CKD, if ok to start with nephrology may consider -HTN control -cont Coreg 25mg bid for now -cont Lasix 60mg daily for now Atrial fibrillation -Post op after CABG -Was on amiodarone in the past, no longer on it. -Was not on full AC -NSR throughout admission at [facility] and on ekgs during office visits -Risk for AC with h/o GI bleeding. no need for AC at present.
--- NOTE | 2019-04-07 11:32 | EKG ---
Test Reason : Blood Pressure : / mmHG Vent. Rate : 057 BPM Atrial Rate : 057 BPM P-R Int : 226 ms QRS Dur : 122 ms QT Int : 494 ms P-R-T Axes : 036 053 141 degrees QTc Int : 480 ms SINUS BRADYCARDIA WITH 1ST DEGREE A-V BLOCK NON-SPECIFIC INTRA-VENTRICULAR CONDUCTION DELAY ABNORMAL ECG WHEN COMPARED WITH ECG OF 06-APR-2019 15:11, T WAVE INVERSION MORE EVIDENT IN LATERAL LEADS Confirmed by KASSY GLYNN MD ([id number]) on 04/07/2019 11:31:40 AM Referred By: Confirmed By:KASSY GLYNN MD
--- NOTE | 2019-04-07 11:35 | EKG ---
Test Reason : Blood Pressure : / mmHG Vent. Rate : 076 BPM Atrial Rate : 076 BPM P-R Int : 222 ms QRS Dur : 124 ms QT Int : 440 ms P-R-T Axes : 055 062 114 degrees QTc Int : 495 ms SINUS RHYTHM WITH 1ST DEGREE A-V BLOCK NON-SPECIFIC INTRA-VENTRICULAR CONDUCTION DELAY ABNORMAL ECG WHEN COMPARED WITH ECG OF 09-FEB-2019 12:22, ST NOW DEPRESSED IN LATERAL LEADS T WAVE INVERSION NOW EVIDENT IN LATERAL LEADS QT HAS LENGTHENED Confirmed by GRETTA FANG, KASSY ([id number]) on 04/07/2019 11:35:06 AM Referred By: Confirmed By:KASSY GLYNN MD
[2019-04-07] MEDS ORDERED: PREGABALIN 25 MG CAPSULE ONE ×2 (12:06→20:49)
[2019-04-07] MEDS ORDERED: INSULIN REGULAR HUMAN 100 UNITS/ML *VIAL ONE (13:22)
[2019-04-07] MEDS ORDERED: MORPHINE SULFATE 2 MG/ML VIAL ONE (17:21)
--- NOTE | 2019-04-07 17:44 | PN ---
Progress Note (short form) - Note Progress Note: Introduced myself to Mr. Carolina. He is declining medical interview and physical exam by any physician associated with [facility]. He declined my evaluation and medical assessment. Nursing vendor quality supervisor was informed that Mr. Ge sanchez need to be assigned to a non-[facility] physician for ongoing care. Visit type - Emergency Visit Emergency Visit: Yes ED Registration Date: 04/06/19 Care time: The patient presented to the Emergency Department on the above date and was hospitalized for further evaluation of their emergent condition. - New Patient This patient is new to me today: Yes Date on this admission: 04/07/19 - Critical Care Critical Care patient: No - Discharge Referral Referred to [facility] Med P.C.: No
[2019-04-07] MEDS: MORPHINE SULFATE 2 MG/ML VIAL IVPUSH PRN (18:00)
[2019-04-07] MEDS ORDERED: LOSARTAN POTASSIUM 50 MG TABLET (FP) ONE (20:49)
[2019-04-07] MEDS ORDERED: ASPIRIN 81 MG CHEWABLE TABLETS ONE (20:49)
[2019-04-07] MEDS ORDERED: CARVEDILOL 12.5 MG TABLET (FP) ONE (20:49)
[2019-04-07] MEDS ORDERED: ATORVASTATIN CA 80 MG TABLET (FP) ONE (20:50)
[2019-04-07] MEDS ORDERED: DULoxetine HCL 30 MG CAPSULE.DR PO ONE (20:50)
[2019-04-07] MEDS: ATORVASTATIN CA 80 MG TABLET (FP) PO SCH (21:22)
[2019-04-07] MEDS: ASPIRIN 81 MG CHEWABLE TABLETS PO SCH (21:22)
[2019-04-07] MEDS: DULoxetine HCL 60 MG CAPSULE.DR PO SCH (21:22)
[2019-04-07] MEDS: NITROGLYCERIN 0.4 MG/HOUR TD PATCH TD SCH (22:50)
[2019-04-08 01:11] VITALS: BMI 35.1
[2019-04-08] MEDS: MORPHINE SULFATE 2 MG/ML VIAL IVPUSH PRN (02:48)
[2019-04-08] MEDS: HEPARIN NA (PORCINE) 5,000 UNITS/ML 1ML VIAL SQ SCH ×3 (05:51→21:20)
[2019-04-08] MEDS: ACETAMINOPHEN 325 MG TABLET (FP) PO PRN (06:18)
[2019-04-08] MEDS: INSULIN SLIDING SCALE (NOVOLOG) 1 VIAL SQ SCH ×4 (06:19→21:20)
[2019-04-08] MEDS ORDERED: PT OWN MED DRAWER 7, Y5N ONE ×2 (09:14→20:18)
[2019-04-08] MEDS: FERROUS SO4 325 MG TABLET (FP) PO SCH (09:53)
[2019-04-08] MEDS: PREGABALIN 25 MG CAPSULE PO SCH ×2 (09:53→21:18)
[2019-04-08] MEDS: CARVEDILOL 25 MG TABLET (FP) PO SCH ×3 (09:53→21:19)
[2019-04-08] MEDS: MULTIVITAMINS (DAILY MVI) TABLET (FP) PO SCH (09:53)
[2019-04-08] MEDS: LOSARTAN POTASSIUM 50 MG TABLET (FP) PO SCH ×3 (09:53→21:19)
[2019-04-08] MEDS: ASCORBIC ACID 500 MG TABLET (FP) PO SCH (09:53)
[2019-04-08] MEDS: FUROSEMIDE 40 MG/4 ML INJECTABLE VIAL IVPUSH SCH (09:54)
[2019-04-08] MEDS: CHOLECALCIFEROL (VIT D SOLUTION) 400 UNIT/1 ML DROPS PO SCH (09:54)
--- NOTE | 2019-04-08 11:44 | ECHO ---
Name: RIDGE AVILA Exam:Adult Echocardiogram Study Date: 04/08/2019 08:46 AM Age: 68 yrs Reason For Study: chf Height: 67 in Weight: 230 lb BSA: 2.1 m2 MMode/2D Measurements & Calculations IVSd: 1.5 cm Ao root diam: 3.8 cm LVIDd: 4.8 cm LA dimension: 3.8 cm LVIDs: 3.6 cm ACS: 1.8 cm LVPWd: 1.3 cm IVSs: 1.6 cm LVPWs: 1.3 cm EDV(Teich): 105.7 ml ESV(Teich): 52.7 ml Doppler Measurements & Calculations MV E max benjy: 119.4 cm/sec Ao V2 max: 105.9 cm/sec MV A max benjy: 68.1 cm/sec Ao max P.5 mmHg MV E/A: 1.8 Ao V2 mean: 79.3 cm/sec Ao mean P.8 mmHg Ao V2 VTI: 28.2 cm AI P1/2t: 752.0 msec AI max benjy: 454.4 cm/sec TR max benjy: 309.3 cm/sec AI max P.6 mmHg TR max P.5 mmHg AI dec slope: 177.0 cm/sec2 PI end-d benjy: 120.1 cm/sec Med Peak E' Benjy: 3.8 cm/sec Med E/e': 31.1 Lat Peak E' Benjy: 4.5 cm/sec Lat E/e': 26.6 Procedure The study was technically adequate with some images being suboptimal in quality. Left Ventricle The left ventricle is normal in size. There is moderate concentric left ventricular hypertrophy. Left ventricular systolic function is mildly reduced. Ejection Fraction = 40-45%. The transmitral spectral Doppler flow pattern is normal for age. Right Ventricle The right ventricle is grossly normal size. The right ventricular systolic function is mildly reduced . Atria The left atrium is borderline dilated. Right atrial size is normal. Mitral Valve There is mild mitral annular calcification. The mitral valve is grossly normal. There is trace mitral regurgitation. Tricuspid Valve The tricuspid valve is not well visualized. There is Trace to mild tricuspid regurgitation. There was insufficient TR detected to calculate RV systolic pressure. Aortic Valve The aortic valve is normal in structure and function. The aortic valve opens well. Trace to mild aort ic regurgitation. Pulmonic Valve The pulmonic valve is not well visualized. Moderate pulmonic valvular regurgitation. Great Vessels Borderline aortic root dilatation. Pericardium/Pleura There is a pleural effusion present. Interpretation Summary In comparison to previous study performed 09/12/2018, LV fxn has decreased. The left ventricle is nor mal in size. There is trace mitral regurgitation. Moderate pulmonic valvular regurgitation. The right ventricular systolic function is mildly reduced. There is moderate concentric left ventricular hypertrophy. In comparison to previous study performed 09/12/2018, LV fxn has decreased. Sundar Alvarado MD 04/08/2019 11:43 AM
--- NOTE | 2019-04-08 14:10 | PN ---
Progress Note, Physician Chief Complaint: left arm/shoulder pain History of Present Illness: Patient is a 68 year old male with past medical history of DM, CAD (s/p 4v CABG in 2016), diastolic CHF, CKD, HTN, testicular cancer, chronic pain, presented to the ED due to persistent left sided chest pressure radiating to the left arm and shortness of breath in the last 4 days. Patient reported he has been having intermittent chest pain for the past few years when he was told to have an "abnormal left lower part of the heart", and that he "needed surgery, but is not a candidate for it". Patient would usually take nitroglycerin patch and SL and the pain would be slightly relieved. Of note, patient was seen 6 months ago for CKD, where he was offered dialysis, but refused. He was discharged to a hospice facility, where he stayed for a few months. Patient denies any fever, chills, headache, dizziness, abdominal pain, diarrhea, dysuria, hematur - Current Medication List Current Medications: Active Medications Acetaminophen (Tylenol -) 650 mg PO Q6H PRN PRN Reason: Fever Or Pain Last Admin: 04/08/19 06:18 Dose: 650 mg Ascorbic Acid (Vitamin C -) 500 mg PO DAILY [facility] Last Admin: 04/08/19 09:53 Dose: 500 mg Aspirin (Asa -) 81 mg PO [facility] Last Admin: 04/07/19 21:22 Dose: 81 mg Atorvastatin Calcium (Lipitor -) 80 mg PO HS [facility] Last Admin: 04/07/19 21:22 Dose: 80 mg Carvedilol (Coreg -) 25 mg PO BID [facility] Last Admin: 04/08/19 09:53 Dose: 25 mg Cholecalciferol (Vitamin D3 Oral Solution -) 200 unit PO DAILY [facility] Last Admin: 04/08/19 09:54 Dose: 200 unit Duloxetine HCl (Cymbalta -) 60 mg PO HS [facility] Last Admin: 04/07/19 21:22 Dose: 60 mg Ferrous Sulfate (Feosol -) 325 mg PO DAILY [facility] Last Admin: 04/08/19 09:53 Dose: 325 mg Heparin Sodium (Porcine) (Heparin -) 5,000 unit SQ TID [facility] Last Admin: 04/08/19 05:51 Dose: Not Given Insulin Aspart (Novolog Vial Sliding Scale -) 1 vial SQ ACHS [facility]; Protocol Last Admin: 04/08/19 12:32 Dose: Not Given Losartan Potassium (Cozaar -) 50 mg PO BID [facility] Last Admin: 04/08/19 09:53 Dose: 50 mg Morphine Sulfate (Morphine Sulfate) 2 mg IVPUSH Q6H PRN PRN Reason: PAIN LEVEL 7 - 10 Last Admin: 04/08/19 02:48 Dose: 2 mg Multivitamins/Minerals/Vitamin C (Tab-A-Vit -) 1 tab PO DAILY [facility] Last Admin: 04/08/19 09:53 Dose: 1 tab Nitroglycerin (Nitro-Dur Patch -) 0.4 mg TD HS [facility] Last Admin: 04/07/19 22:50 Dose: 0.4 mg Nitroglycerin (Nitrostat -) 0.4 mg SL [id number] PRN PRN Reason: PAIN Pregabalin (Lyrica -) 25 mg PO BID [facility] Last Admin: 04/08/19 09:53 Dose: 25 mg - Objective Vital Signs: Vital Signs Temperature 97.7 F 04/08/19 10:00 Pulse Rate 69 04/08/19 10:00 Respiratory Rate 18 04/08/19 10:00 Blood Pressure 186/77 H 04/08/19 10:00 O2 Sat by Pulse Oximetry (%) 96 04/07/19 23:59 Constitutional: Yes: Well Nourished, No Distress, Calm Eyes: Yes: WNL, Conjunctiva Clear, EOM Intact HENT: Yes: WNL, Atraumatic, Normocephalic Neck: Yes: WNL, Supple, Trachea Midline Cardiovascular: Yes: WNL, Regular Rate and Rhythm Respiratory: Yes: Regular, Diminished (at bases) Gastrointestinal: Yes: WNL, Normal Bowel Sounds, Soft, Abdomen, Obese ...Rectal Exam: Yes: Deferred Genitourinary: Yes: WNL Breast(s): Yes: WNL Musculoskeletal: Yes: WNL, Joint Stiffness (to left shoulder), Muscle Pain Extremities: Yes: Delayed Capillary Refill Edema: Yes Edema: LUE: Trace, RUE: Trace, LLE: 3+, RLE: 3+ Peripheral Pulses WNL: Yes Integumentary: Yes: WNL Neurological: Yes: WNL, Alert, Oriented ...Motor Strength: LLE, RLE (weakness d/t gross edema of LE) Labs: CBC, BMP 04/07/19 08:33 04/07/19 08:33 INR, PTT INR 1.08 (0.83-1.09) 04/06/19 17:48 Problem List - Problems (1) Testicular cancer Assessment/Plan: in remission Code(s): C62.90 - MALIG NEOPLASM OF UNSP TESTIS, UNSP DESCENDED OR UNDESCENDED (2) Chronic pain Assessment/Plan: pt [id number] tylenokl #3 which he states is ineffective after lengthly discussion with the patient will try nucynta 50mg q6h and wwill assess effectiveness tmrw c/w lyrica with note that repsitatory status ban be depressed with use of both Code(s): G89.29 - OTHER CHRONIC PAIN (3) Prophylactic measure Assessment/Plan: FEN no IVF, rwefusing lasic diabetic cardiac d DVT heparin bid Dispo mainatin as in patient DNR/DNI discharge planning, if pain is better possible dc in am Code(s): Z29.9 - ENCOUNTER FOR PROPHYLACTIC MEASURES, UNSPECIFIED (4) Congestive heart failure Assessment/Plan: refusing diuretic therapy Code(s): I50.9 - HEART FAILURE, UNSPECIFIED Qualifiers: Heart failure type: unspecified Heart failure chronicity: unspecified Qualified Code(s): I50.9 - Heart failure, unspecified (5) CKD (chronic kidney disease) Assessment/Plan: Cr at 2.[address] Alatorre in past & HD offered and patient declined avoid nephrotoxic agentets Code(s): N18.9 - CHRONIC KIDNEY DISEASE, UNSPECIFIED Qualifiers: Chronic kidney disease stage: unspecified stage Qualified Code(s): N18.9 - Chronic kidney disease, unspecified (6) Chest pain Assessment/Plan: resolving c/w Ntg prn possible musculokeletal in nature Code(s): R07.9 - CHEST PAIN, UNSPECIFIED (7) 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 with nephropathy Assessment/Plan: c/w lyrica BGM with novolog sliding scale Code(s): E11.21 - TYPE 2 DIABETES MELLITUS WITH DIABETIC NEPHROPATHY Qualifiers: 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 type: type 2 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 penitentiary insulin use: with intermediate project manager use Qualified Code(s): E11.21 - Type 2 diabetes mellitus with diabetic nephropathy; Z79.4 - correction (current) use of insulin (8) Prophylactic measure Code(s): Z29.9 - ENCOUNTER FOR PROPHYLACTIC MEASURES, UNSPECIFIED (9) HTN (hypertension) Assessment/Plan: normottensive c/w home antihypetrtensives Code(s): I10 - ESSENTIAL (PRIMARY) HYPERTENSION Qualifiers: Hypertension type: essential hypertension Qualified Code(s): I10 - Essential (primary) hypertension Visit type - Emergency Visit Emergency Visit: Yes ED Registration Date: 04/06/19 Care time: The patient presented to the Emergency Department on the above date and was hospitalized for further evaluation of their emergent condition. - New Patient This patient is new to me today: Yes Date on this admission: 04/08/19 - Critical Care Critical Care patient: No - Discharge Referral Referred to [facility] Med P.C.: No
--- NOTE | 2019-04-08 15:38 | PN ---
Progress Note, Physician Chief Complaint: Dyspnea History of Present Illness: This is a 68 year old male with a PMH of HTN, DMII, CKD, CAD s/p CABG x4 after nstemi 09/2015 at [facility], nuclear stress test 09/2016 after admission for chest pain, showed inferior/inferoapical ischemia LVEF 77%, chronic stable angina on NTG patch at home and ntg SL prn, TIA 2000, carotid stenosis s/p CEA 2007, [place], bleeding hemorrhoids s/p 2 complicated colonoscopies in the past, chronic cervical and lumbar disc disease, multiple surgeries and chronic pain, current CKD with nephrotic range proteinurea and chronic b/l LE edema. Several past admissions for duiresis. He has refused cardiac interventions including cardiac cath in the past. He previously decided to enter Hospice care.. He was discharged from Hospice after 3 months. He was seen by Dr Olivas 03/26/19, and now presents with the same complaints of [place] with minimal exertion as well as continued episodes of chest pain mainly at night. He declines to increase his diuretics as he does not want to effect his creatinine. He has continued b/l LE edema. - Current Medication List Current Medications: Active Medications Acetaminophen (Tylenol -) 650 mg PO Q6H PRN PRN Reason: Fever Or Pain Last Admin: 04/08/19 06:18 Dose: 650 mg Ascorbic Acid (Vitamin C -) 500 mg PO DAILY [facility] Last Admin: 04/08/19 09:53 Dose: 500 mg Aspirin (Asa -) 81 mg PO HS [facility] Last Admin: 04/07/19 21:22 Dose: 81 mg Atorvastatin Calcium (Lipitor -) 80 mg PO HS [facility] Last Admin: 04/07/19 21:22 Dose: 80 mg Carvedilol (Coreg -) 25 mg PO BID [facility] Last Admin: 04/08/19 09:53 Dose: 25 mg Cholecalciferol (Vitamin D3 Oral Solution -) 200 unit PO DAILY [facility] Last Admin: 04/08/19 09:54 Dose: 200 unit Duloxetine HCl (Cymbalta -) 60 mg PO HS [facility] Last Admin: 04/07/19 21:22 Dose: 60 mg Ferrous Sulfate (Feosol -) 325 mg PO DAILY [facility] Last Admin: 04/08/19 09:53 Dose: 325 mg Heparin Sodium (Porcine) (Heparin -) 5,000 unit SQ TID [facility] Last Admin: 04/08/19 14:45 Dose: Not Given Insulin Aspart (Novolog Vial Sliding Scale -) 1 vial SQ ACHS [facility]; Protocol Last Admin: 04/08/19 12:32 Dose: Not Given Losartan Potassium (Cozaar -) 50 mg PO BID [facility] Last Admin: 04/08/19 09:53 Dose: 50 mg Multivitamins/Minerals/Vitamin C (Tab-A-Vit -) 1 tab PO DAILY [facility] Last Admin: 04/08/19 09:53 Dose: 1 tab Nitroglycerin (Nitro-Dur Patch -) 0.4 mg TD HS [facility] Last Admin: 04/07/19 22:50 Dose: 0.4 mg Nitroglycerin (Nitrostat -) 0.4 mg SL [id number] PRN PRN Reason: PAIN Pregabalin (Lyrica -) 25 mg PO BID [facility] Last Admin: 04/08/19 09:53 Dose: 25 mg Tapentadol (Nucynta -) 50 mg PO Q6H PRN PRN Reason: PAIN LEVEL 6-10 - Objective Vital Signs: Vital Signs Temperature 97.7 F 04/08/19 10:00 Pulse Rate 69 04/08/19 10:00 Respiratory Rate 18 04/08/19 10:00 Blood Pressure 186/77 H 04/08/19 10:00 O2 Sat by Pulse Oximetry (%) 96 04/07/19 23:59 Constitutional: Yes: No Distress Eyes: Yes: WNL HENT: Yes: WNL Neck: Yes: WNL Cardiovascular: Yes: Regular Rate and Rhythm, S1, S2 Respiratory: Yes: Dullness (At the left base) Gastrointestinal: Yes: Normal Bowel Sounds, Soft Edema: Yes Edema: LLE: 1+, RLE: 1+ Neurological: Yes: Alert, Oriented Labs: CBC, BMP 04/07/19 08:33 04/07/19 08:33 INR, PTT INR 1.08 (0.83-1.09) 04/06/19 17:48 Assessment/Plan 68 year old male with a PMH of HTN, DMII, CKD, CAD s/p CABG x4 after nstemi 2015 at [facility], nuclear stress test 09/2016 after admission for chest pain, showed inferior/inferoapical ischemia LVEF 77%, chronic stable angina on NTG patch at home and ntg SL prn, TIA 2000, carotid stenosis s/p CEA 2007, [place], bleeding hemorrhoids s/p 2 complicated colonoscopies in the past, chronic cervical and lumbar disc disease, multiple surgeries and chronic pain, current CKD with nephrotic range proteinurea and chronic b/l LE edema. Several past admissions for duiresis. He has refused cardiac interventions including cardiac cath in the past. He previously decided to enter Hospice care.. He was discharged from Hospice after 3 months. He was seen by Dr Olivas 03/26/19, and now presents with the same complaints of [place] with minimal exertion as well as continued episodes of chest pain mainly at night. He declines to increase his diuretics as he does not want to effect his creatinine. He has continued b/l LE edema. CHF Echo 04/08/19 shows Moderate LVH EF 40-45%. Continue Coreg 25 mg PO BID Losartan 50 mg PO BID Repeat SMA-7 to recheck Lytes (K was 3.3 and Cr. was 2.3) He needs more diuretics but won't allow it at this time because he is concerned about his renal function
[2019-04-08] MEDS: NITROGLYCERIN 0.4 MG/HOUR TD PATCH TD SCH ×2 (20:24→21:20)
[2019-04-08] MEDS ORDERED: DULoxetine HCL 30 MG CAPSULE.DR PO ONE (21:09)
[2019-04-08] MEDS: TAPENTADOL HYDROCHLORIDE 50 MG TABLET PO PRN (21:18)
[2019-04-08] MEDS: DULoxetine HCL 60 MG CAPSULE.DR PO SCH (21:18)
[2019-04-08] MEDS: ASPIRIN 81 MG CHEWABLE TABLETS PO SCH (21:18)
[2019-04-08] MEDS: ATORVASTATIN CA 80 MG TABLET (FP) PO SCH (21:18)
[2019-04-09] MEDS: ACETAMINOPHEN 325 MG TABLET (FP) PO PRN (02:24)
[2019-04-09] MEDS: TAPENTADOL HYDROCHLORIDE 50 MG TABLET PO PRN (05:48)
[2019-04-09] MEDS: HEPARIN NA (PORCINE) 5,000 UNITS/ML 1ML VIAL SQ SCH ×2 (06:06→13:11)
[2019-04-09] MEDS: INSULIN SLIDING SCALE (NOVOLOG) 1 VIAL SQ SCH ×2 (06:06→12:24)
[2019-04-09] MEDS: MULTIVITAMINS (DAILY MVI) TABLET (FP) PO SCH (09:37)
[2019-04-09] MEDS: PREGABALIN 25 MG CAPSULE PO SCH (09:37)
[2019-04-09] MEDS: CHOLECALCIFEROL (VIT D SOLUTION) 400 UNIT/1 ML DROPS PO SCH (09:37)
[2019-04-09] MEDS: FERROUS SO4 325 MG TABLET (FP) PO SCH (09:37)
[2019-04-09] MEDS: LOSARTAN POTASSIUM 50 MG TABLET (FP) PO SCH (09:38)
[2019-04-09] MEDS: CARVEDILOL 25 MG TABLET (FP) PO SCH (09:38)
[2019-04-09] MEDS: ASCORBIC ACID 500 MG TABLET (FP) PO SCH (09:38)
--- NOTE | 2019-04-09 12:29 | PN ---
Progress Note, Physician History of Present Illness: seen and examined today in nad. no overnight events. no new complaints. still has L shoulder pain. - Current Medication List Current Medications: Active Medications Acetaminophen (Tylenol -) 650 mg PO Q6H PRN PRN Reason: Fever Or Pain Last Admin: 04/09/19 02:24 Dose: 650 mg Ascorbic Acid (Vitamin C -) 500 mg PO DAILY [facility] Last Admin: 04/09/19 09:38 Dose: 500 mg Aspirin (Asa -) 81 mg PO HS [facility] Last Admin: 04/08/19 21:18 Dose: 81 mg Atorvastatin Calcium (Lipitor -) 80 mg PO HS [facility] Last Admin: 04/08/19 21:18 Dose: 80 mg Carvedilol (Coreg -) 25 mg PO BID [facility] Last Admin: 04/09/19 09:38 Dose: 25 mg Cholecalciferol (Vitamin D3 Oral Solution -) 200 unit PO DAILY [facility] Last Admin: 04/09/19 09:37 Dose: 200 unit Duloxetine HCl (Cymbalta -) 60 mg PO [facility] Ferrous Sulfate (Feosol -) 325 mg PO DAILY [facility] Last Admin: 04/09/19 09:37 Dose: 325 mg Heparin Sodium (Porcine) (Heparin -) 5,000 unit SQ TID [facility] Last Admin: 04/09/19 06:06 Dose: Not Given Insulin Aspart (Novolog Vial Sliding Scale -) 1 vial SQ [facility]; Protocol Last Admin: 04/09/19 06:06 Dose: Not Given Losartan Potassium (Cozaar -) 50 mg PO BID [facility] Last Admin: 04/09/19 09:38 Dose: 50 mg Multivitamins/Minerals/Vitamin C (Tab-A-Vit -) 1 tab PO DAILY [facility] Last Admin: 04/09/19 09:37 Dose: 1 tab Nitroglycerin (Nitro-Dur Patch -) 0.4 mg TD [facility] Last Admin: 04/08/19 21:20 Dose: Not Given Nitroglycerin (Nitrostat -) 0.4 mg SL [id number] PRN PRN Reason: PAIN Pregabalin (Lyrica -) 25 mg PO BID [facility] Last Admin: 04/09/19 09:37 Dose: 25 mg Tapentadol (Nucynta -) 50 mg PO Q6H PRN PRN Reason: PAIN LEVEL 6-10 Last Admin: 04/09/19 05:48 Dose: 50 mg - Objective Vital Signs: Vital Signs Temperature 99.0 F 04/09/19 09:16 Pulse Rate 79 04/09/19 09:16 Respiratory Rate 18 04/09/19 09:16 Blood Pressure 160/75 04/09/19 09:16 O2 Sat by Pulse Oximetry (%) 93 L 04/09/19 09:00 Constitutional: Yes: No Distress, Calm Eyes: Yes: Conjunctiva Clear, EOM Intact HENT: Yes: Atraumatic, Normocephalic Neck: Yes: Supple, Trachea Midline Cardiovascular: Yes: Regular Rate and Rhythm, S1, S2. No: Bradycardia, Tachycardia, Pulse Irregular, Bruit, JVD, Gallop, Murmur, Rub, S3, S4, Varicosities Respiratory: Yes: Regular, Diminished, SOB on Exertion. No: Rales, Rhonchi, SOB , Wheezes Gastrointestinal: Yes: Normal Bowel Sounds, Soft Musculoskeletal: Yes: Back Pain, Joint Stiffness, Muscle Pain Edema: Yes Edema: LLE: 2+, RLE: 2+ Peripheral Pulses WNL: Yes Neurological: Yes: Alert, Oriented Psychiatric: Yes: Alert, Oriented Labs: CBC, BMP 04/07/19 08:33 04/07/19 08:33 INR, PTT INR 1.08 (0.83-1.09) 04/06/19 17:48 - ....Imaging Chest X-ray: Report Reviewed, Image Reviewed EKG: Report Reviewed, Image Reviewed Other: Report Reviewed, Image Reviewed Assessment/Plan 68 year old male with a PMH of HTN, DMII, CKD, CAD s/p CABG x4 after nstemi 2015 at [facility], nuclear stress test 09/2016 after admission for chest pain, showed inferior/inferoapical ischemia LVEF 77%, chronic stable angina on NTG patch at home and ntg SL prn, TIA 2000, carotid stenosis s/p CEA 2007, [place], bleeding hemorrhoids s/p 2 complicated colonoscopies in the past, chronic cervical and lumbar disc disease, multiple surgeries and chronic pain, current CKD with nephrotic range proteinurea and chronic b/l LE edema. Several past admissions for duiresis. He has refused cardiac interventions including cardiac cath in the past. He previously decided to enter Hospice care.. He was discharged from Hospice after 3 months. He was seen outpatient 03/26/19, and now presents with the same complaints of [place] with minimal exertion as well as continued episodes of chest pain mainly at night. He declines to increase his diuretics as he does not want to effect his creatinine. He has continued b/l LE edema. CHF Echo 04/08/19 shows Moderate LVH EF 40-45%. Continue Coreg 25 mg PO BID Losartan 50 mg PO BID last labs 04/07/19 Resume po Lasix or Torsemide Chronic stable angina -on ntg patch and prn SL NTG at home -cannot take ranexa due to CKD -likely little benefit from addition of Imdur as he is already on nitrates pt refuses all interventions there is no other inpatient cardiac work up that is needed at this time.
[2019-04-09 15:31] VITALS: BP 149/63; PULSE 73; TEMP 98.1
--- NOTE | 2019-04-09 15:31 | DS ---
Physical Exam: SUBJECTIVE: Patient seen and examined OBJECTIVE: Vital Signs Period Temp Pulse Resp BP Sys/Guo Pulse Ox Last 24 Hr 98.1 F-99.0 F 69-81 18-19 149-196/63-76 93-95 PHYSICAL EXAM GENERAL: The patient is awake, alert, and fully oriented, in no acute distress. HEAD: Normal with no signs of trauma. EYES: PERRL, extraocular movements intact, sclera anicteric, conjunctiva clear. ENT: Ears normal, nares patent, oropharynx clear without exudates, moist mucous membranes. NECK: Trachea midline, full range of motion, supple. LUNGS: Breath sounds equal, clear to auscultation bilaterally, no wheezes, no crackles, no accessory muscle use. HEART: Regular rate and rhythm, S1, S2 without murmur, rub or gallop. ABDOMEN: Soft, nontender, nondistended, normoactive bowel sounds, no guarding, no rebound, no hepatosplenomegaly, no masses. EXTREMITIES: 2+ pulses, warm, well-perfused, no edema. NEUROLOGICAL: Cranial nerves II through XII grossly intact. Normal speech, gait not observed. PSYCH: Normal mood, normal affect. SKIN: Warm, dry, normal turgor, no rashes or lesions noted. LABS Laboratory Results - last 24 hr 04/08/19 04/08/19 04/09/19 17:18 21:17 05:45 POC Glucometer 159 227 122 04/09/19 12:23 POC Glucometer 164 HOSPITAL COURSE: Date of Admission:04/06/19 Date of Discharge: 04/09/19 Discharge Summary Reason For Visit: CONJESTIVE HEART FAILURE, CHRONIC KIDNEY DISEASE Current Active Problems Chronic pain (Acute) Congestive heart failure (Acute) Prophylactic measure (Acute) Testicular cancer (Acute) CKD (chronic kidney disease) (Chronic) Condition: Improved - Instructions Diet, Activity, Other Instructions: Please follow up with your PCP on discharge. Referrals: Oliverio Olivas MD [Staff Physician] - German Kurtz MD [Staff Physician] - Arnold Young MD [Staff Physician] - Disposition: HOME - Home Medications Comprehensive Discharge Medication List: Ambulatory Orders Aspirin [ASA -] 81 mg PO HS 09/20/15 Atorvastatin Ca [Lipitor] 80 mg PO HS 09/20/15 Carvedilol 25 mg PO BID 09/20/15 Cholecalciferol (Vitamin D3) [D3-2000] 200 unit PO DAILY 09/20/15 Nitroglycerin Sublingual [Nitrostat -] 0.4 mg SL [id number] PRN #30 tab 10/07/16 Multivit-Min/FA/Lycopen/Lutein [Centrum Silver Men Tablet] 1 each PO DAILY 11/22 Nitroglycerin Patch [Nitro-Dur Patch -] 0.4 mg TD HS 11/22/17 Ferrous Sulfate [Iron] 325 mg PO DAILY 07/27/18 Ascorbic Acid [Vitamin C -] 500 mg PO DAILY tablet 09/15/18 Blood Sugar Diagnostic [Glucose Test Strip] 1 each ACHS #30 strip 09/21/18 Duloxetine HCl [Cymbalta] 60 mg PO HS 02/08/19 Losartan Potassium 50 mg PO BID 02/08/19 Pregabalin [Lyrica] 25 mg PO BID 02/08/19 Sitagliptin Phosphate [Januvia] 50 mg PO DAILY 02/08/19 Furosemide [Lasix] 40 mg PO DAILY #60 tablet 04/09/19 - Discharge Referral Referred to [facility] No
[2019-04-09] MEDS ORDERED: DULoxetine HCL 30 MG CAPSULE.DR PO SCH (22:00)
== END 2019-04-09 16:48 | disposition home or self-care (01) | DRG 292 ==
LOC: JER 14:54 → JERBED 19:40 → J4S 04-08 00:04
PROVIDERS: ADMIT Internal Medicine; ATTEND Nurse Practitioner Family
DX: I13.0 Hypertensive heart and chronic kidney disease with heart failure and stage 1 through stage 4 chronic kidney disease, or unspecified chronic kidney disease (principal); I50.32 Chronic diastolic (congestive) heart failure; I44.0 Atrioventricular block, first degree; G25.81 Restless legs syndrome; G47.33 Obstructive sleep apnea (adult) (pediatric); K64.8 Other hemorrhoids; E11.22 Type 2 diabetes mellitus with diabetic chronic kidney disease; N18.9 Chronic kidney disease, unspecified; E87.6 Hypokalemia; E78.5 Hyperlipidemia, unspecified; K58.9 Irritable bowel syndrome, unspecified; I25.10 Atherosclerotic heart disease of native coronary artery without angina pectoris; M54.5 Low back pain; M54.30 Sciatica, unspecified side; G89.29 Other chronic pain; M50.30 Other cervical disc degeneration, unspecified cervical region; M51.36 Other intervertebral disc degeneration, lumbar region; M25.512 Pain in left shoulder; M10.9 Gout, unspecified; F32.9 Major depressive disorder, single episode, unspecified; E66.8 Other obesity; Z68.35 Body mass index [BMI] 35.0-35.9, adult; D64.9 Anemia, unspecified; Z88.0 Allergy status to penicillin; Z95.1 Presence of aortocoronary bypass graft; Z86.73 Personal history of transient ischemic attack (TIA), and cerebral infarction without residual deficits; Z85.47 Personal history of malignant neoplasm of testis
CPT/HCPCS: 36415; 71045-TC-FY; 80053; 82550; 82962; 83735; 84100; 84443; 84484; 85025; 85610; 93005; 93010; 93306-TC; 94761; 99285-25

== ENCOUNTER 2019-04-27 02:55 | Inpatient (IN) | payer BC, OTHER ==
--- NOTE | 2019-04-27 03:41 | PDOC ---
History of Present Illness - General Stated Complaint: DIFFICULTY BREATING Time Seen by Provider: 04/27/19 03:27 History Source: Patient - History of Present Illness Initial Comments: 04/27/19 06:21 Mr. Carolina is a 68 y/o man with hx CKD not on dialysis, testicular CA in remission, inferior heart defect, DM, migraine headaches presenting with acute worsening shortness of breath and orthopnea with ongoing lower extremity edema. He reports noting today that he was entirely unable to lie flat due to increased shortness of breath, as well as pain in his R flank. He denies any chest pain at this time. He reports that since his discharge from the hospital he has been mildly short of breath, and is concerned that he did not quality for home oxygen despite his discomfort. He reports that he had fluid in his R lung during his last admission to the hospital on 04/06/19. He reports that while he knows that his prognosis without dialysis is terminal, he presents as he wants to remain comfortable and was unable to tolerate the pain or shortness of breath at home. He reports that he is DNR, DNI. Mr. Carolina reports that he refuses dialysis, will continue to refuse dialysis , and will refuse surgical intervention if it becomes indicated. PCP: Dr. Jacob Layton Cardio: Dr. Barajas Past History - Past Medical History Allergies/Adverse Reactions: Allergies Allergy/AdvReac Type Severity Reaction Status Date / Time turkey Allergy Intermediate Vomiting Verified 04/27/19 03:40 [id number] Allergy diarrhea, Verified 04/27/19 03:40 (oxitriptan) vomiting aspartame Allergy headache Verified 04/27/19 03:40 banana Allergy Verified 04/27/19 03:40 Penicillins Allergy Rash Verified 04/27/19 03:40 sumatriptan [From Imitrex] Allergy Verified 04/27/19 03:40 sumatriptan succinate Allergy Verified 04/27/19 03:40 [From Imitrex] Home Medications: Ambulatory Orders Aspirin [ASA -] 81 mg PO HS 09/20/15 Atorvastatin Ca [Lipitor] 80 mg PO HS 09/20/15 Carvedilol 25 mg PO BID 09/20/15 Cholecalciferol (Vitamin D3) [D3-2000] 200 unit PO DAILY 09/20/15 Nitroglycerin Sublingual [Nitrostat -] 0.4 mg SL [id number] PRN #30 tab 10/07/16 Multivit-Min/FA/Lycopen/Lutein [Centrum Silver Men Tablet] 1 each PO DAILY 11/22 Nitroglycerin Patch [Nitro-Dur Patch -] 0.4 mg TD HS 11/22/17 Ferrous Sulfate [Iron] 325 mg PO DAILY 07/27/18 Ascorbic Acid [Vitamin C -] 500 mg PO DAILY tablet 09/15/18 Blood Sugar Diagnostic [Glucose Test Strip] 1 each ACHS #30 strip 09/21/18 Duloxetine HCl [Cymbalta] 60 mg PO HS 02/08/19 Losartan Potassium 100 mg PO BID 02/08/19 Pregabalin [Lyrica] 25 mg PO BID 02/08/19 Sitagliptin Phosphate [Januvia] 50 mg PO DAILY 02/08/19 Anemia: No Asthma: No Cancer: Yes (TESTICULAR ca with lymph node dissection) Cardiac Disorders: Yes (HI 2014) CVA: Yes (TIA 05/2011) COPD: No CHF: Yes Dementia: No Diabetes: Yes GI Disorders: Yes (GASTRITIS, SPASTIC COLON, GERD; COLON POLYPS) Disorders: Yes (kidney failure) HTN: Yes Hypercholesterolemia: Yes Kidney Stones: Yes Liver Disease: No Seizures: No Thyroid Disease: No - Surgical History Abdominal Surgery: Yes Appendectomy: No Cardiac Surgery: Yes (quad bypass 2014) Cholecystectomy: Yes Lung Surgery: No Neurologic Surgery: Yes (HERNIATED DISC; BRAIN SURGERY ) Orthopedic Surgery: Yes (KNEE ARTHROSCOPY R/L) - Immunization History Td Vaccination: Yes TDAP Vaccination: Yes Immunization Up to Date: Yes - Suicide/Smoking/Psychosocial Hx Smoking Status: No Smoking History: Never smoked Have you smoked in the past 12 months: No Number of Cigarettes Smoked Daily: 0 If you are a former smoker, when did you quit?: 50 years ago Cigars Per Day: 0 Hx Alcohol Use: No Drug/Substance Use Hx: No Substance Use Type: None Hx Substance Use Treatment: No Review of Systems - Review of Systems Able to Perform ROS?: Yes Comments:: ROS: GENERAL/CONSTITUTIONAL: No fever or chills. No weakness. HEAD, EYES, EARS, NOSE AND THROAT: No change in vision. No ear pain or discharge. No sore throat. CARDIOVASCULAR: Shortness of breath, orthopnea. No chest pain. RESPIRATORY: Cough. No wheezing, or hemoptysis. GASTROINTESTINAL: No nausea, vomiting, diarrhea or constipation. GENITOURINARY: No dysuria, frequency, or change in urination. MUSCULOSKELETAL: R flank pain. No other joint or muscle swelling or pain. No neck or back pain. SKIN: No rash NEUROLOGIC: No headache, vertigo, loss of consciousness, or change in strength/ sensation. ENDOCRINE: No increased thirst. No abnormal weight change HEMATOLOGIC/LYMPHATIC: No anemia, easy bleeding, or history of blood clots. ALLERGIC/IMMUNOLOGIC: No hives or skin allergy. *Physical Exam - Vital Signs Last Vital Signs Temp Pulse Resp BP Pulse Ox 98.4 F 90 22 H 234/98 H 96 04/27/19 03:27 04/27/19 03:27 04/27/19 03:04/27/19 03:04/27/19 03:27 - Physical Exam Comments: PE: GENERAL: Awake, alert, and fully oriented, mild distress. HEAD: No signs of trauma, normocephalic, atraumatic EYES: PERRLA, EOMI, sclera anicteric, conjunctiva clear ENT: Auricles normal inspection, hearing grossly normal, nares patent, oropharynx clear without exudates. Moist mucosa NECK: Normal ROM, supple, no lymphadenopathy, JVD, or masses LUNGS: Mild distress, speaks full sentences. Diminished lung sounds at bilateral bases. HEART: Regular rate and rhythm, normal S1 and S2, no murmurs, rubs or gallops, peripheral pulses normal and equal bilaterally. ABDOMEN: Soft, nontender, normoactive bowel sounds. No guarding, no rebound. No masses EXTREMITIES : 3+ bilateral LE edema. Otherwise: Normal inspection, Normal range of motion, no edema. No clubbing or cyanosis NEUROLOGICAL: Cranial nerves II through XII grossly intact. Normal speech, normal gait, no focal sensorimotor deficits SKIN: Warm, Dry, normal turgor ED Treatment Course - LABORATORY CBC & Chemistry Diagram: 04/27/19 05:07 04/27/19 05:07 Medical Decision Making - Medical Decision Making 04/27/19 06:19 68 y/o M with hx CKD denying dialysis, CHF, DM, inferior heart defect, CHF p/w acute worsening of shortness of breath, consistent with CHF exacerbation vs worsening CKD. Plan: CBC CMP BNP EKG Cardiac Profile CXR 2mg Morphine Dispo: Admit --- BNP > 9000 Cr - baseline Troponin - negative --- Plan for inpatient admission. *DC/Admit/Observation/Transfer Diagnosis at time of Disposition: Congestive heart failure Qualifiers: Heart failure type: unspecified Heart failure chronicity: unspecified Qualified Code(s): I50.9 - Heart failure, unspecified - Discharge Dispostion Condition at time of disposition: Stable Decision to Admit order: Yes - Referrals - Patient Instructions - Post Discharge Activity
[2019-04-27] MEDS ORDERED: FUROSEMIDE 40 MG/4 ML INJECTABLE VIAL IVPUSH ONE (04:11)
[2019-04-27] MEDS ORDERED: LOSARTAN POTASSIUM 50 MG TABLET (FP) PO ONE (04:12)
[2019-04-27] MEDS ORDERED: morphine CARPU-JECT 2 MG/1 ML DISP.SYRIN IVPUSH ONE (04:46)
[2019-04-27 05:21] LABS: BASO % 0.9 % (0-2.0); HEMATOCRIT 31.1 % (35.4-49); HEMOGLOBIN 10.5 GM/dL (11.7-16.9); MCHC 33.7 g/dl (32.0-35.9)
[2019-04-27] MEDS ORDERED: LOSARTAN POTASSIUM 50 MG TABLET (FP) ONE (05:26)
[2019-04-27] MEDS ORDERED: MORPHINE SULFATE 2 MG/ML VIAL ONE (05:26)
[2019-04-27] MEDS ORDERED: FUROSEMIDE 40 MG/4 ML INJECTABLE VIAL ONE (05:27)
[2019-04-27 05:34] LABS: INR 1.1 (0.83-1.09)
[2019-04-27 05:38] LABS: URINE APPEARANCE Clear; URINE BILIRUBIN Negative (NEGATIVE); URINE COLOR Yellow; URINE GLUCOSE (UA) Trace (NEGATIVE); URINE KETONE Negative (NEGATIVE); URINE LEUK ESTERASE Negative (NEGATIVE); URINE NITRITE Negative (NEGATIVE); URINE PROTEIN 3+ (NEGATIVE); URINE UROBILINOGEN 0.2 mg/dL (0.2-1.0)
[2019-04-27 05:41] LABS: EOS % 3.2 % (0-4.5); LYMPH % 19.2 % (8-40); MEAN PLT VOLUME 8.3 fl (7.5-11.1); MONO % 7.8 % (3.8-10.2); NEUT % 68.9 % (42.8-82.8); PLATELET COUNT 263 K/MM3 (134-434); RDW 14.8 % (11.9-15.9); WHITE BLOOD COUNT 12.7 K/mm3 (4.0-10.0)
[2019-04-27 05:43] LABS: ALBUMIN 2.8 g/dl (3.4-5.0); BILIRUBIN,TOTAL 0.6 mg/dL (0.2-1); BLOOD UREA NITROGEN 34.5 mg/dL (7-18); CREATININE 2.6 mg/dL (0.55-1.3); POTASSIUM 3.8 mmol/L (3.5-5.1); TOT PROT 6.7 g/dl (6.4-8.2)
--- NOTE | 2019-04-27 06:05 | PDOC ---
Attending Attestation - Resident Resident Name: ChuyRenard - ED Attending Attestation I have performed the following: I have examined & evaluated the patient, The case was reviewed & discussed with the resident, I agree w/resident's findings & plan - HPI HPI: 04/27/19 06:09 Pt comes with SOB and he is aware that his kidneys are going bad and that he needs dialysis, but so far refusing it. Taking care of the situation with BP meds and lasix; but still soboptimal and he comes into the ER when he needs a tune up. - Physicial Exam PE: 04/27/19 06:11 Agree with resident exam - Medical Decision Making 04/27/19 06:11 Labs are coming back with BNP close to 10K; BUN/CR high as usual. Pt will be admitted for optimization of his labs/kidney functions. 04/27/19 06:18 Pt has end organ damage +hematuria. 04/27/19 06:19 Pt will be signed out to the day docs for admission to hospitalist.
[2019-04-27 07:33] LABS: EPI CELLS 5.3 /HPF (0-5/HPF); HYALINE CASTS 13.54 /lpf (0-8); URINE BACTERIA 1.9 /hpf (NEGATIVE); URINE RBC 10 /hpf (0-4); URINE WBC 1.5 /hpf (0-5)
[2019-04-27] MEDS ORDERED: NITROGLYCERIN SUBLINGUAL 1/150 0.4 MG TAB SL ONE ×2 (09:23→09:39)
[2019-04-27] MEDS ORDERED: NITROGLYCERIN SUBLINGUAL 1/150 0.4 MG TAB ONE (09:41)
[2019-04-27] MEDS ORDERED: CARVEDILOL 12.5 MG TABLET (FP) ONE (10:28)
[2019-04-27] MEDS: HEPARIN NA (PORCINE) 5,000 UNITS/ML 1ML VIAL SQ SCH ×2 (10:34→22:49)
[2019-04-27] MEDS: CARVEDILOL 25 MG TABLET (FP) PO SCH ×2 (10:34→22:49)
--- NOTE | 2019-04-27 12:05 | HP ---
CHIEF COMPLAINT: shortness of breath PCP: Dr. Jcaob Camacho HISTORY OF PRESENT ILLNESS: Pt. is a 68 y.o. M w/ PMHx. of DM II, CAD (s/p 4v CABG in 2016), CHFpEF, CKD( Stage 3), HTN, testicular cancer (In remission), and chronic pain presents to the ED becuse of worsening shortness of breath over the last 3 weeks. Pt. states that he is unable to lie flat at night and has to incline his home hospital bed to about 60 degrees. Pt. states that he was recently discharged from this hospital on Lasix 40 mg daily and without oxygen because he passed a walking test. Pt. states that when he went to Hospice (unknown why he decided to initiate hopsice) and was given supplemental oxygen as needed there. During ED stay Pt. developed chest pain that radiated to the left arm and stated that this happens at home and is usually resolved with Nitroglycerin. After treating with Nitroglycerin Pt. stated that pain in his arm still persisted however the chest pain had dissipated. Troponin were negative x 2 and EKG showed no acute changes. Of note Pt. is DNR/ DNI and is resistant to any invasive procedures including central line placements or dialysis. Pt. endorses chills at home requiring 2 blankets even though his at home was not cold. Pt. endorses increased lower extremity swelling that improved after receiving Lasix. Pt. denies any other acute complaints at this time. Pt. states that he takes all his medications as prescribed everyday. ER course was notable for: (1)Lasix, CXR, (2)CBC, CMP, BNP, troponins (3) PAST MEDICAL HISTORY: DM II, CAD (s/p 4v CABG in 2016), CHFpEF, CKD( Stage 3), HTN, testicular cancer (In remission), LUE DVT? and chronic pain PAST SURGICAL HISTORY: 2007 right knee surgery 2011 L-spine surgery 2013 oral surgery c/b infection to jawbone 1984/1985 testicular cancer s/p right orchiectomy with prosthesis implant 1994 spinal surgery for C6-7 herniated disc 1998 hemorrhoidectomy 2000 spinal surgery C5-C6 disc herniation 2006 spinal surgery for herniated discs (? location) Brain surgery as a child abdominal surgery to remove affected lymph nodes due to metastatic testicular cancer Social History: Smoking:quit >20 years ago Alcohol:denies Drugs: denies Allergies turkey Allergy (Intermediate, Verified 04/27/19 03:40) Vomiting 0-awbyasz-[id number]-tryptophan (oxitriptan) Allergy (Verified 04/27/19 03:40) diarrhea, vomiting aspartame Allergy (Verified 04/27/19 03:40) headache banana Allergy (Verified 04/27/19 03:40) Penicillins Allergy (Verified 04/27/19 03:40) Rash sumatriptan [From Imitrex] Allergy (Verified 04/27/19 03:40) sumatriptan succinate [From Imitrex] Allergy (Verified 04/27/19 03:40) HOME MEDICATIONS: Home Medications Medication Instructions Recorded Aspirin [ASA -] 81 mg PO HS 09/20/15 Atorvastatin Ca [Lipitor] 80 mg PO HS 09/20/15 Carvedilol 25 mg PO BID 09/20/15 Cholecalciferol (Vitamin D3) 200 unit PO DAILY 09/20/15 [D3-2000] Nitroglycerin Sublingual 0.4 mg SL [id number] PRN #30 tab 10/07/16 [Nitrostat -] Multivit-Min/FA/Lycopen/Lutein 1 each PO DAILY 11/22/17 [Centrum Silver Men Tablet] Nitroglycerin Patch [Nitro-Dur 0.4 mg TD HS 11/22/17 Patch -] Ferrous Sulfate [Iron] 325 mg PO DAILY 07/27/18 Ascorbic Acid [Vitamin C -] 500 mg PO DAILY tablet 09/15/18 Blood Sugar Diagnostic [Glucose 1 each ACHS #30 strip 09/21/18 Test Strip] Duloxetine HCl [Cymbalta] 60 mg PO HS 02/08/19 Losartan Potassium 100 mg PO BID 02/08/19 Pregabalin [Lyrica] 25 mg PO BID 02/08/19 Sitagliptin Phosphate [Januvia] 50 mg PO DAILY 02/08/19 REVIEW OF SYSTEMS As per HPI PHYSICAL EXAMINATION Vital Signs - 24 hr 04/27/19 04/27/19 04/27/19 03:27 03:53 03:55 Temperature 98.4 F Pulse Rate 90 92 H Pulse Rate [ Apical] Respiratory 22 H Rate Blood Pressure 234/98 H Blood Pressure [Left Arm] O2 Sat by Pulse 96 99 98 Oximetry (%) 04/27/19 04/27/19 04/27/19 07:05 07:20 07:47 Temperature 98.2 F Pulse Rate Pulse Rate [ 88 89 Apical] Respiratory 20 18 Rate Blood Pressure Blood Pressure 195/86 H 179/80 H [Left Arm] O2 Sat by Pulse 98 97 97 Oximetry (%) 04/27/19 10:47 Temperature Pulse Rate Pulse Rate [ Apical] Respiratory Rate Blood Pressure Blood Pressure 187/107 H [Left Arm] O2 Sat by Pulse Oximetry (%) GENERAL: Awake, alert, and fully oriented, in mild respiratory distress. HEAD: Normal with no signs of trauma. EYES: Pupils equal, round and reactive to light, sclera anicteric, conjunctiva clear. EARS, NOSE, THROAT: Ears normal, nares patent, Moist mucous membranes. NECK: Normal range of motion, supple without lymphadenopathy, JVD, or masses. LUNGS: Breath sounds equal, clear to auscultation bilaterally. No wheezes, bilateral crackles. No accessory muscle use. HEART: Regular rate and rhythm, normal S1 and S2 without murmur, rub or gallop. ABDOMEN: Surgical scars in midline abdomen and in RUQ, soft, nontender, not distended, normoactive bowel sounds, no guarding, no rebound, LLQ mass (known from prior admission). UPPER EXTREMITIES: 2+ pulses, warm, well-perfused. No cyanosis. No clubbing. LOWER EXTREMITIES: 2+ pulses, warm, well-perfused. No calf tenderness. 4+ edema. NEUROLOGICAL: No focal deficits appreciated, Normal speech. Slow, wide-based gait. PSYCHIATRIC: Good eye contact. Appropriate mood and affect. SKIN: Warm, dry, normal turgor, pale Laboratory Results - last 24 hr 04/27/19 04/27/19 04/27/19 05:07 05:07 05:07 WBC 12.7 H RBC 3.50 L Hgb 10.5 L Hct 31.1 L MCV 89.0 MCH 30.0 MCHC 33.7 RDW 14.8 Plt Count 263 D MPV 8.3 Absolute Neuts (auto) 8.7 H Neutrophils % 68.9 Lymphocytes % 19.2 D Monocytes % 7.8 Eosinophils % 3.2 Basophils % 0.9 Nucleated RBC % 0 PT with INR INR PTT (Actin FS) 32.5 Sodium Potassium Chloride Carbon Dioxide Anion Gap BUN Creatinine Est GFR (CKD-EPI)AfAm Est GFR (CKD-EPI)NonAf Random Glucose Lactic Acid Calcium Total Bilirubin AST ALT Alkaline Phosphatase Creatine Kinase 102 Troponin I 0.02 B-Natriuretic Peptide Total Protein Albumin Urine Color Urine Appearance Urine pH Ur Specific [place] Urine Protein Urine Glucose (UA) Urine Ketones Urine Blood Urine Nitrite Urine Bilirubin Urine Urobilinogen Ur Leukocyte Esterase Urine WBC (Auto) Urine RBC (Auto) Urine Casts (Auto) U Pathogenic Cast Auto U Epithel Cells (Auto) U Sm Round Cell (Auto) Urine Bacteria (Auto) 04/27/19 04/27/19 04/27/19 05:07 05:07 05:07 WBC RBC Hgb Hct MCV MCH MCHC RDW Plt Count MPV Absolute Neuts (auto) Neutrophils % Lymphocytes % Monocytes % Eosinophils % Basophils % Nucleated RBC % PT with INR 13.00 INR 1.10 H PTT (Actin FS) Sodium 146 H Potassium 3.8 Chloride 107 Carbon Dioxide 30 Anion Gap 9 BUN 34.5 H Creatinine 2.6 H Est GFR (CKD-EPI)AfAm 28.31 Est GFR (CKD-EPI)NonAf 24.42 Random Glucose 147 H Lactic Acid 0.8 Calcium 9.0 Total Bilirubin 0.6 AST 14 L ALT 18 Alkaline Phosphatase 108 Creatine Kinase Troponin I B-Natriuretic Peptide Total Protein 6.7 Albumin 2.8 L Urine Color Urine Appearance Urine pH Ur Specific [place] Urine Protein Urine Glucose (UA) Urine Ketones Urine Blood Urine Nitrite Urine Bilirubin Urine Urobilinogen Ur Leukocyte Esterase Urine WBC (Auto) Urine RBC (Auto) Urine Casts (Auto) U Pathogenic Cast Auto U Epithel Cells (Auto) U Sm Round Cell (Auto) Urine Bacteria (Auto) 04/27/19 04/27/19 04/27/19 05:07 05:30 10:55 WBC RBC Hgb Hct MCV MCH MCHC RDW Plt Count MPV Absolute Neuts (auto) Neutrophils % Lymphocytes % Monocytes % Eosinophils % Basophils % Nucleated RBC % PT with INR INR PTT (Actin FS) Sodium Potassium Chloride Carbon Dioxide Anion Gap BUN Creatinine Est GFR (CKD-EPI)AfAm Est GFR (CKD-EPI)NonAf Random Glucose Lactic Acid Calcium Total Bilirubin AST ALT Alkaline Phosphatase Creatine Kinase Troponin I 0.03 B-Natriuretic Peptide 9601.5 H Total Protein Albumin Urine Color Yellow Urine Appearance Clear Urine pH 7.0 Ur Specific [place] 1.020 Urine Protein 3+ H Urine Glucose (UA) Trace Urine Ketones Negative Urine Blood 1+ H Urine Nitrite Negative Urine Bilirubin Negative Urine Urobilinogen 0.2 Ur Leukocyte Esterase Negative Urine WBC (Auto) 1.5 Urine RBC (Auto) 10 Urine Casts (Auto) 13.54 U Pathogenic Cast Auto None seen U Epithel Cells (Auto) 5.3 U Sm Round Cell (Auto) None seen Urine Bacteria (Auto) 1.9 ASSESSMENT/PLAN: Pt. is a 68 y.o. M w/ PMHx. of DM II, CAD (s/p 4v CABG in 2016), CHFpEF, CKD ( Stage 3), HTN, testicular cancer (In remission), and chronic pain presents to the ED becuse of worsening shortness of breath over the last 3 weeks. #Acute CHF exacerbation Lasix 60mg IVP Daily, Received 40mg IV in ED, can increase to BID if Pt. is not net negative with Is & Os. Is & Os Daily weights Cardiology consult (Dr. Olivas appreciated) EKG unremarkable BNP: 9,600 ( 3x the highest that has ever been recorded for him here) Last Echo 04/08/19: reduced LVEF as compared to prior now 40-45%, moderate pulmonic valve regurgitations, moderate concentric LVH, trace MR #HTN/CAD c/w ASA, Coreg, Losartan c/w Nitroglycerin PRN Presented to ED with BP of 234/98--> c/w home medication and monitor if we need to give additional medications #DMII Hold Januvia BGM ACHS ISS ACHS #FEN encourage PO intake monitor electrolytes and replete as needed sodium controlled diet #DVT Ppx. Hep SQ BID TEDs SCDs Code DNR/DNI, No invasive procedures ATTENDING PHYSICIAN STATEMENT I saw and evaluated the patient. I reviewed the resident's note and discussed the case with the resident. I agree with the resident's findings and plan as documented. SUBJECTIVE: OBJECTIVE: ASSESSMENT AND PLAN:
[2019-04-27] MEDS ORDERED: NITROGLYCERIN SUBLINGUAL 1/150 0.4 MG TAB SL PRN (13:55)
--- NOTE | 2019-04-27 15:39 | CON.CARD ---
Consult Consult Specialty:: Cardiology Referred by:: Hospitalist Reason for Consultation:: SOB - History of Present Illness Chief Complaint: SOB History of Present Illness: 68 year old male with a PMH of HTN, DMII, CKD, CAD s/p CABG x4 after nstemi [address] [facility], nuclear stress test 09/2016 after admission for chest pain, showed inferior/inferoapical ischemia LVEF 77%, chronic stable angina on NTG patch at home and ntg SL prn, TIA 2000, carotid stenosis s/p CEA 2007, MONICO, bleeding hemorrhoids s/p 2 complicated colonoscopies in the past, chronic cervical and lumbar disc disease, multiple surgeries and chronic pain, current CKD with nephrotic range proteinurea and chronic b/l LE edema. Several past admissions for duiresis. He has refused cardiac interventions including cardiac cath in the past. He previously decided to enter Hospice care.. He was discharged from Hospice after 3 months. He was seen outpatient 03/26/19, recently discharged 04/09/19 with same complaints of SEYMOUR with minimal exertion as well as continued episodes of chest pain mainly at night. He declined to increase his diuretics as he did not want to effect his creatinine. He came to the ER now because he has had worsening of his SOB, mainly at night when lying in bed to the point where he felt he needed to come back in. states that his LE edema is improved since recent hospitalization. states he was changed to Torsemide recently by his PMD but only took it for 2 days prior to coming to the ER. Currently feels better wearing O2. Is now agreeable to IV access and IV diuretics if it will make his sob better. - History Source History Provided By: Patient, Family Member Limitations to Obtaining History: No Limitations - Past Medical History [employer]SEM[employer]ER: Yes: TIA, Other (possible restless leg syndrome) Cardio/Vascular: Yes: CAD, CHF, HTN, Hyperlipdemia, Other (Cardiac arrest 2000 carotid artery stenosis) Pulmonary: Yes: Other (PNA after spinal surgery 2000) Gastrointestinal: Yes: Irritable Bowel Disease Renal/: Yes: Renal Inusuff, Other (testicular cancer) Psych: Yes: Depression Musculoskeletal: Yes: Chronic low back pain, Osteoarthritis, Other (sciatica) Rheumatology: Yes: Gout Endocrine: Yes: Diabetes Mellitus - Past Surgical History Past Surgical History: Yes: CABG, Cholecystectomy (1997) - Alcohol/Substance Use Hx Alcohol Use: No History of Substance Use: reports: None - Smoking History Smoking history: Never smoked Have you smoked in the past 12 months: No Aproximately how many cigarettes per day: 0 If you are a former smoker, when did you quit?: 50 years ago - Social History ADL: Independent History of Recent Travel: No Home Medications - Allergies Allergies/Adverse Reactions: Allergies Allergy/AdvReac Type Severity Reaction Status Date / Time turkey Allergy Intermediate Vomiting Verified 04/27/19 03:40 9-[id number]-tryptophan Allergy diarrhea, Verified 04/27/19 03:40 (oxitriptan) vomiting aspartame Allergy headache Verified 04/27/19 03:40 banana Allergy Verified 04/27/19 03:40 Penicillins Allergy Rash Verified 04/27/19 03:40 sumatriptan [From Imitrex] Allergy Verified 04/27/19 03:40 sumatriptan succinate Allergy Verified 04/27/19 03:40 [From Imitrex] - Home Medications Home Medications: Ambulatory Orders Aspirin [ASA -] 81 mg PO HS 09/20/15 Atorvastatin Ca [Lipitor] 80 mg PO HS 09/20/15 Carvedilol 25 mg PO BID 09/20/15 Cholecalciferol (Vitamin D3) [D3-2000] 200 unit PO DAILY 09/20/15 Nitroglycerin Sublingual [Nitrostat -] 0.4 mg SL [id number] PRN #30 tab 10/07/16 Multivit-Min/FA/Lycopen/Lutein [Centrum Silver Men Tablet] 1 each PO DAILY 11/22 Nitroglycerin Patch [Nitro-Dur Patch -] 0.4 mg TD HS 11/22/17 Ferrous Sulfate [Iron] 325 mg PO DAILY 07/27/18 Ascorbic Acid [Vitamin C -] 500 mg PO DAILY tablet 09/15/18 Blood Sugar Diagnostic [Glucose Test Strip] 1 each ACHS #30 strip 09/21/18 Duloxetine HCl [Cymbalta] 60 mg PO HS 02/08/19 Losartan Potassium 100 mg PO BID 02/08/19 Pregabalin [Lyrica] 25 mg PO BID 02/08/19 Sitagliptin Phosphate [Januvia] 50 mg PO DAILY 02/08/19 Family Disease History - Family Disease History Family Disease History: Diabetes: Mother ( (80s) ), Heart Disease: Father ( (90s)), Other: Sister (alive (69) thyroid disease) Review of Systems - Review of Systems Constitutional: reports: Weakness. denies: No Symptoms, Chills, Diaphoresis, Fever, Lethargy, Loss of Appetite, Malaise, Night Sweats, Unintentional Wgt. Loss, Other Eyes: denies: No Symptoms, Blind Spots, Blurred Vision, Double Vision, Eye Pain , Floaters, Photophobia, Recent Change in Vision, Other HENT: denies: No Symptoms, Difficult Swallowing, Ear Discharge, Ear Pain, Epistaxis, Gingival Bleeding, Hearing Loss, Mouth Swelling, Nasal Congestion, Ocular Prosthesis, Throat Pain, Toothache, Ringing in Ears, Other Neck: denies: No Symptoms, Decreased ROM, Lumps, Pain on Movement, Stiffness, Swollen Glands, Tenderness, Other Cardiovascular: reports: Chest Pain, Edema, Shortness of Breath. denies: No Symptoms, Palpitations, Other Respiratory: reports: Exercise Intolerance, Orthopnea, PND, SOB, SOB on Exertion. denies: No Symptoms, Cough, Hemoptysis, Snoring, Wheezing, Other Gastrointestinal: denies: No Symptoms, Abdominal Pain, Bloating, Constipation, Diarrhea, Dysphagia, Indigestion, Melena, Nausea, Rectal Bleeding, Vomiting, Vomiting Blood, Other Genitourinary: denies: No Symptoms, Burning, Discharge, Dysuria, Flank Pain, Frequency, Hematuria, Incontinence, Lesions, Menses, Pain, Testicular Mass, Testicular Pain, Testicular Swelling, Urgency, Vaginal Bleeding, Other Breasts: denies: No Symptoms Reported, See HPI, Breast Implants, Discharge from Nipple, Lumps, Pain, Skin Changes, Other Musculoskeletal: denies: No Symptoms, Back Pain, Crepitus, Decreased ROM, Extremity Pain, Joint Pain, Joint Swelling, Muscle Pain, Muscle Cramps, Muscle Weakness, Other Integumentary: denies: No Symptoms, Blister, Bruising, Change in Color, Eczema, Erythema, Incision, Lesions, Lump, Pallor, Pruritis, Rash, Wound, Other Neurological: denies: No Symptoms, Change in LOC, Change in Speech, Confusion, Dizziness, Headache, Incoordination, Numbness, Parasthesia, Pre-Existing Deficit , Seizure, Syncope, Tremors, Unsteady Gait, Weakness, Other Endocrine: denies: No Symptoms, Excessive Sweating, Flushing, Increased Hunger, Increased Thirst, Intolerance to Cold, Intolerance to Heat, Unexplained Weight Gain, Unexplained Weight Loss, Other Hematology/Lymphatic: denies: No Symptoms, Easily Bruised, Excessive Bleeding, Swollen Glands, Other Psychiatric: denies: No Symptoms, Altered Sleep Pattern, Anxiety, Depression, Hallucinations, Panic, Paranoia, Suicidal, Other - Risk Factors Known Risk Factors: Yes: Diabetes Mellitus, Hypercholesterolemia, Hypertension, Physical Inactivity, Prior VT /Emb Stroke Vital Signs: Vital Signs Temperature 97.9 F 04/27/19 14:06 Pulse Rate 76 04/27/19 14:06 Respiratory Rate 18 04/27/19 14:06 Blood Pressure 158/84 04/27/19 14:06 O2 Sat by Pulse Oximetry (%) 97 04/27/19 14:06 Constitutional: Yes: No Distress, Calm, Obese Eyes: Yes: Conjunctiva Clear, EOM Intact, PERRL HENT: Yes: Atraumatic, Normocephalic Neck: Yes: Supple, Trachea Midline Respiratory: Yes: Regular, Diminished, On Nasal O2, Rales. No: Rhonchi, SOB, Wheezes Gastrointestinal: Yes: Normal Bowel Sounds, Soft. No: Distention, Tenderness Cardiovascular: Yes: Regular Rate and Rhythm. No: Bradycardia, Tachycardia, Pulse Irregular, Gallop, Rub, Varicosities JVD: No Carotid Bruit: No PMI: Non-Displaced Heart Sounds: Yes: S1, S2. No: Split S2, S3, S4, Clicks, Gallop, Rub, Bruit Murmur: Yes: Systolic Murmur. No: Diastolic Murmur Musculoskeletal: Yes: Muscle Weakness Extremities: Yes: WNL Edema: Yes Edema: LLE: 1+, RLE: 1+ Peripheral Pulses WNL: Yes Peripheral Pulses: 2+ Left Doralis Pedis, 2+ Right Dorsalis Pedis Neurological: Yes: Alert, Oriented Psychiatric: Yes: Alert, Oriented - Other Data Labs, Other Data: CBC, BMP 04/27/19 05:07 04/27/19 05:07 INR, PTT INR 1.10 (0.83-1.09) H 04/27/19 05:07 Troponin, BNP 04/27/19 04/27/19 04/27/19 05:07 05:07 10:55 Troponin I 0.02 0.03 B-Natriuretic Peptide 9601.5 H Troponin, BNP 04/27/19 04/27/19 04/27/19 05:07 05:07 10:55 Troponin I 0.02 0.03 B-Natriuretic Peptide 9601.5 H Imaging - Results Chest X-ray: Report Reviewed, Image Reviewed EKG: Report Reviewed, Image Reviewed Other: Report Reviewed, Image Reviewed Assessment/Plan 68 year old male with a PMH of HTN, DMII, CKD, CAD s/p CABG x4 after nstemi [address] [facility], nuclear stress test 09/2016 after admission for chest pain, showed inferior/inferoapical ischemia LVEF 77%, chronic stable angina on NTG patch at home and ntg SL prn, TIA 2000, carotid stenosis s/p CEA 2007, MONICO, bleeding hemorrhoids s/p 2 complicated colonoscopies in the past, chronic cervical and lumbar disc disease, multiple surgeries and chronic pain, current CKD with nephrotic range proteinurea and chronic b/l LE edema. Several past admissions for duiresis. He has refused cardiac interventions including cardiac cath in the past. He previously decided to enter Hospice care.. He was discharged from Hospice after 3 months. He was seen outpatient 03/26/19, recently discharged 04/09/19 with same complaints of SEYMOUR with minimal exertion as well as continued episodes of chest pain mainly at night. He declined to increase his diuretics as he did not want to effect his creatinine. He came to the ER now because he has had worsening of his SOB, mainly at night when lying in bed to the point where he felt he needed to come back in. states that his LE edema is improved since recent hospitalization. states he was changed to Torsemide recently by his PMD but only took it for 2 days prior to coming to the ER. Currently feels better wearing O2. Is now agreeable to IV access and IV diuretics if it will make his sob better. SOB-acute on chronic combined systolic and diastolic CHF, ischemic heart disease -in addition to 3rd spacing from low oncotic pressure/low albumin -has been difficult to treat as he refuses any invasive procedures, dialysis, and has CKD that may worsen if aggressive diuresis is used thus he has been reluctant at trials of increased diuretics -pt now amenable to IV diuresis -cont Lasix 60mg IV daily -monitor strict I/Os and daily weights, bun/creat, electrolytes and replete as needed -if not net neg with I/Os in 24 hours and if weight not down then increase Lasix to 60mg IV BID -plan to resume Torsemide on discharge either at current dose or at increased dose, pts will bring the prescription to review his home dose -cont home Coreg, Losartan Chronic stable angina -on ntg patch and prn SL NTG at home -cannot take ranexa due to CKD -likely little benefit from addition of Imdur as he is already on nitrates -HTN control and volume control -pt refuses invasive testing such as cardiac cath
--- NOTE | 2019-04-27 18:01 | PN ---
Teaching Attending Note Name of Resident: David Novoa ATTENDING PHYSICIAN STATEMENT I saw and evaluated the patient. I reviewed the resident's note and discussed the case with the resident. I agree with the resident's findings and plan as documented. SUBJECTIVE: CC: SOB HPI: 68 y/o man with h/o chronic systolic and diastolic heart failure, MONICO, CKD , NSTEMi, stable angina, s/p CABG x 4, testicular cancer s/p resection and chemo , chronic back pain, carotid stenosis s/p CEA, and other medical rpoblems who presented with worsening SOB He was d/c from hospital on 04/09 after being treated for CHF exacerbation. he was dc on lasix 40, not on O2 aas he did not need it. since then he has worsenign SEYMOUR, orthopnea , and SOB at rest. he renay dr. Jacob Coyne who changed his lasix to torsemide which was delivered 2 days ago. he denies change in his diet or compliance. although hsi O2 is not low, he feels it helps him breath and requests it. he was dc from hospice few months ago. sleep study was attempted on him, but he could not complete did not see dr. cain after his dc OBJECTIVE: NAD , MMM, round pupils, L smaller than left. reactive to light, tongue at mid line CV : RRR, no MRG , + JVD Lungs: decreased breath sounds at bases, no wheezes or crackles Abd: obese, soft, NT, ND, NL BS, old surgical scars. Ext : 2+ pitting edema . on legs. No fungal infection . DP 2+ , RP 2+ b/l. hyperpigmentation on shins breast exam: 2x2 cm nodule in R brest just lateral to nipple. slightly tender to palpation . no LAP in axillary areas. no nodules in L breast ASSESSMENT AND PLAN: 68 y/o man with h/o chronic systolic and diastolic heart failure, MONICO, CKD, NSTEMi, s/p CABG x 4, testicular cancer s/p resection and chemo, chronic back pain, carotid stenosis s/p CEA, and other medical rpoblems who presented with worsening SOB. he was found to have acute CHF exacerbation 1- Acute systolic and diastolic heart failure: - lasix 60 mg daily - weight and strict I&O - monitor renal function - O2 as needed. remigio do pre and post after dc. - no need fro echo ( last in with decreased EF, MR adn other abn) - cont losartan and coreg 2- Chronic angina: EKG with RBBB, adn Nl axis , QTC 488. declined cath in past - cont PRN SLNg and NG patch - cont coreg. - cont ASA 3- DM: start SSI. hold orals monitor renal function 4- HTN: cont losartan , and coreg . 5- R breast mass: had Mammo 3 months ago and was told it was benign. f/u as out tp 6- code: DNR/DNI .
[2019-04-27] MEDS: INSULIN SLIDING SCALE (NOVOLOG) 1 VIAL SQ SCH ×2 (19:19→22:56)
[2019-04-27] MEDS ORDERED: DULoxetine HCL 30 MG CAPSULE.DR PO ONE (21:37)
[2019-04-27] MEDS ORDERED: ASPIRIN 81 MG CHEWABLE TABLETS PO SCH (22:00)
[2019-04-27] MEDS ORDERED: PREGABALIN 25 MG CAPSULE PO SCH (22:00)
[2019-04-27] MEDS ORDERED: DULoxetine HCL 60 MG CAPSULE.DR PO SCH (22:00)
[2019-04-27] MEDS ORDERED: ATORVASTATIN CA 40 MG TABLET (FP) PO SCH (22:00)
[2019-04-27] MEDS: DULoxetine HCL 30 MG CAPSULE.DR PO SCH (22:48)
[2019-04-27] MEDS: NITROGLYCERIN 0.4 MG/HOUR TD PATCH TD SCH (22:50)
[2019-04-28] MEDS: NITROGLYCERIN SUBLINGUAL 1/150 0.4 MG TAB SL PRN ×2 (05:17→05:20)
[2019-04-28] MEDS: INSULIN SLIDING SCALE (NOVOLOG) 1 VIAL SQ SCH ×4 (08:07→22:01)
[2019-04-28 09:16] LABS: BLOOD UREA NITROGEN 35.2 mg/dL (7-18); CALCIUM 8.8 mg/dL (8.5-10.1); CREATININE 2.4 mg/dL (0.55-1.3); MAGNESIUM 2.1 mg/dL (1.8-2.4); PHOSPHOROUS 3.9 mg/dL (2.5-4.9)
[2019-04-28 09:23] LABS: BASO % 0.7 % (0-2.0); EOS % 4.3 % (0-4.5); HEMATOCRIT 29.6 % (35.4-49); HEMOGLOBIN 9.9 GM/dL (11.7-16.9); LYMPH % 26.3 % (8-40); MCH 29.8 pg (25.7-33.7); MCHC 33.4 g/dl (32.0-35.9); MEAN CELL VOLUME 89.1 fl (80-96); MEAN PLT VOLUME 8.7 fl (7.5-11.1); MONO % 8.8 % (3.8-10.2); NEUT % 59.9 % (42.8-82.8); PLATELET COUNT 250 K/MM3 (134-434); RBC 3.33 M/mm3 (4.00-5.60); RDW 14.8 % (11.9-15.9); WHITE BLOOD COUNT 9.7 K/mm3 (4.0-10.0)
[2019-04-28] MEDS ORDERED: LOSARTAN POTASSIUM 50 MG TABLET (FP) PO SCH (10:00)
[2019-04-28] MEDS ORDERED: FUROSEMIDE 40 MG/4 ML INJECTABLE VIAL IVPUSH SCH (10:00)
[2019-04-28] MEDS: CARVEDILOL 25 MG TABLET (FP) PO SCH ×2 (10:52→21:55)
[2019-04-28] MEDS: LOSARTAN POTASSIUM 50 MG TABLET (FP) PO SCH (10:52)
[2019-04-28] MEDS: PREGABALIN 25 MG CAPSULE PO SCH ×2 (10:53→21:56)
[2019-04-28] MEDS: HEPARIN NA (PORCINE) 5,000 UNITS/ML 1ML VIAL SQ SCH ×2 (10:53→21:56)
[2019-04-28] MEDS: FUROSEMIDE 40 MG/4 ML INJECTABLE VIAL IVPUSH SCH (10:54)
--- NOTE | 2019-04-28 14:07 | PN ---
Progress Note (short form) - Note Progress Note: Subjective: No fever or chills. No COPPOLA. SOB is better, slept 4 hours last night. has pain in L leg which is worse than yesterday. no diarrhea Objective: Vital Signs: Last Vital Signs Temp Pulse Resp BP Pulse Ox 98.4 F 66 20 148/59 L 95 04/28/19 13:46 04/28/19 13:46 04/28/19 13:46 04/28/19 13:46 04/27/19 21:00 Laboratory Results - last 24 hr 04/27/19 04/27/19 04/27/19 17:56 17:56 22:55 WBC RBC Hgb Hct MCV MCH MCHC RDW Plt Count MPV Absolute Neuts (auto) Neutrophils % Lymphocytes % Monocytes % Eosinophils % Basophils % Nucleated RBC % Sodium Potassium Chloride Carbon Dioxide Anion Gap BUN Creatinine Est GFR (CKD-EPI)AfAm Est GFR (CKD-EPI)NonAf POC Glucometer 201 140 Random Glucose Calcium Phosphorus Magnesium Creatine Kinase 90 Troponin I 0.02 04/28/19 04/28/19 04/28/19 00:00 06:35 06:55 WBC 9.7 RBC 3.33 L Hgb 9.9 L Hct 29.6 L MCV 89.1 MCH 29.8 MCHC 33.4 RDW 14.8 Plt Count 250 MPV 8.7 Absolute Neuts (auto) 5.8 Neutrophils % 59.9 Lymphocytes % 26.3 D Monocytes % 8.8 Eosinophils % 4.3 Basophils % 0.7 Nucleated RBC % 0 Sodium 147 H Potassium 4.0 Chloride 110 H Carbon Dioxide 30 Anion Gap 7 L BUN 35.2 H Creatinine 2.4 H Est GFR (CKD-EPI)AfAm 31.18 Est GFR (CKD-EPI)NonAf 26.90 POC Glucometer Random Glucose 134 H Calcium 8.8 Phosphorus 3.9 Magnesium 2.1 Creatine Kinase 77 70 Troponin I 0.02 0.02 04/28/19 04/28/19 04/28/19 07:00 11:01 11:58 WBC RBC Hgb Hct MCV MCH MCHC RDW Plt Count MPV Absolute Neuts (auto) Neutrophils % Lymphocytes % Monocytes % Eosinophils % Basophils % Nucleated RBC % Sodium Potassium Chloride Carbon Dioxide Anion Gap BUN Creatinine Est GFR (CKD-EPI)AfAm Est GFR (CKD-EPI)NonAf POC Glucometer 135 200 Random Glucose Calcium Phosphorus Magnesium Creatine Kinase 82 Troponin I < 0.02 Physical Exam: NAD , MMM. CV : RRR, no MRG , + JVD Lungs: decreased breath sounds at bases, no wheezes or crackles. Ext : 2+ pitting edema . on legs. L > R . hyperpigmentation on shins ASSESSMENT AND PLAN: 68 y/o man with h/o chronic systolic and diastolic heart failure, MONICO, CKD, NSTEMi, s/p CABG x 4, testicular cancer s/p resection and chemo, chronic back pain, carotid stenosis s/p CEA, and other medical rpoblems who presented with worsening SOB. he was found to have acute CHF exacerbation 1- Acute systolic and diastolic heart failure: feels betetr . I&Os are not documented correctly - tele with no events - lasix 60 mg daily - weight and strict I&O - monitor renal function - O2 as needed. will do pre and post before DC - no need for echo ( last in with decreased EF, MR adn other abn) - cont losartan and coreg . - obtain L leg US 2- CAD s/p CABG and Chronic angina: - cont PRN SL Ng and NG patch - cont coreg. - cont ASA 3- DM: cont SSI 4- Uncontrolled HTN: cont losartan , and coreg . add norvasc 5- R breast mass: being worked up as out pt 6- code: DNR/DNI . HLOC Visit type - Emergency Visit Emergency Visit: Yes ED Registration Date: 04/27/19 Care time: The patient presented to the Emergency Department on the above date and was hospitalized for further evaluation of their emergent condition. - New Patient This patient is new to me today: No - Critical Care Critical Care patient: No
[2019-04-28] MEDS: amLODIPine BESYLATE 5 MG TABLET (FP) PO SCH (15:03)
--- NOTE | 2019-04-28 15:11 | PN ---
Progress Note, Physician History of Present Illness: seen and examined today in [facility]. states he is feeling better today. slept better overnight, sob improved. - Current Medication List Current Medications: Active Medications Acetaminophen (Tylenol -) 650 mg PO Q6H PRN PRN Reason: PAIN LEVEL 1-5 Amlodipine Besylate (Norvasc -) 5 mg PO DAILY [facility] Aspirin (Asa -) 81 mg PO HS [facility] Atorvastatin Calcium (Lipitor -) 80 mg PO HS [facility] Carvedilol (Coreg -) 25 mg PO BID [facility] Last Admin: 04/28/19 10:52 Dose: 25 mg Duloxetine HCl (Cymbalta -) 60 mg PO HS [facility] Last Admin: 04/27/19 22:48 Dose: 60 mg Furosemide (Lasix Injection -) 60 mg IVPUSH DAILY [facility] Last Admin: 04/28/19 10:54 Dose: 60 mg Heparin Sodium (Porcine) (Heparin -) 5,000 unit SQ BID [facility] Last Admin: 04/28/19 10:53 Dose: Not Given Insulin Aspart (Novolog Vial Sliding Scale -) 1 vial SQ [facility]; Protocol Last Admin: 04/28/19 12:14 Dose: Not Given Losartan Potassium (Cozaar -) 100 mg PO DAILY [facility] Last Admin: 04/28/19 10:52 Dose: 100 mg Nitroglycerin (Nitro-Dur Patch -) 0.4 mg TD [facility] Last Admin: 04/27/19 22:50 Dose: 0.4 mg Nitroglycerin (Nitrostat -) 0.4 mg SL Q5M PRN PRN Reason: CHEST PAIN Last Admin: 04/28/19 05:20 Dose: 0.4 mg Oxycodone HCl (Roxicodone -) 5 mg PO Q4H PRN PRN Reason: PAIN LEVEL 6-10 Pregabalin (Lyrica -) 25 mg PO BID [facility] Last Admin: 04/28/19 10:53 Dose: 25 mg - Objective Vital Signs: Vital Signs Temperature 98.4 F 04/28/19 13:46 Pulse Rate 66 04/28/19 13:46 Respiratory Rate 20 04/28/19 13:46 Blood Pressure 148/59 L 04/28/19 13:46 O2 Sat by Pulse Oximetry (%) 95 04/27/19 21:00 Constitutional: Yes: No Distress, Calm Eyes: Yes: Conjunctiva Clear, EOM Intact, PERRL HENT: Yes: Atraumatic, Normocephalic Neck: Yes: Supple, Trachea Midline Cardiovascular: Yes: Regular Rate and Rhythm, S1, S2. No: Bradycardia, Tachycardia, Pulse Irregular, Bruit, JVD, Gallop, Murmur, Rub, S3, S4, Varicosities Respiratory: Yes: Regular, Diminished, On Nasal O2. No: Rales, Rhonchi, SOB, Wheezes Gastrointestinal: Yes: Normal Bowel Sounds, Soft. No: Distention, Tenderness Edema: Yes Edema: LLE: 3+, RLE: 3+ Peripheral Pulses WNL: Yes Neurological: Yes: Alert, Oriented Psychiatric: Yes: Alert, Oriented Labs: CBC, BMP 04/28/19 06:35 04/28/19 06:55 INR, PTT INR 1.10 (0.83-1.09) H 04/27/19 05:07 - ....Imaging Chest X-ray: Report Reviewed, Image Reviewed EKG: Report Reviewed, Image Reviewed Other: Report Reviewed, Image Reviewed (tele-no sig arrhythmias) Assessment/Plan 68 year old male with a PMH of HTN, DMII, CKD, CAD s/p CABG x4 after nstemi 2015 at [facility], nuclear stress test 09/2016 after admission for chest pain, showed inferior/inferoapical ischemia LVEF 77%, chronic stable angina on NTG patch at home and ntg SL prn, TIA 2000, carotid stenosis s/p CEA 2007, MONICO, bleeding hemorrhoids s/p 2 complicated colonoscopies in the past, chronic cervical and lumbar disc disease, multiple surgeries and chronic pain, current CKD with nephrotic range proteinurea and chronic b/l LE edema. Several past admissions for duiresis. He has refused cardiac interventions including cardiac cath in the past. He previously decided to enter Hospice care.. He was discharged from Hospice after 3 months. He was seen outpatient 03/26/19, recently discharged 04/09/19 with same complaints of SEYMOUR with minimal exertion as well as continued episodes of chest pain mainly at night. He declined to increase his diuretics as he did not want to effect his creatinine. He came to the ER now because he has had worsening of his SOB, mainly at night when lying in bed to the point where he felt he needed to come back in. states that his LE edema is improved since recent hospitalization. states he was changed to Torsemide recently by his PMD but only took it for 2 days prior to coming to the ER. Currently feels better wearing O2. Is now agreeable to IV access and IV diuretics if it will make his sob better. SOB-acute on chronic combined systolic and diastolic CHF, ischemic heart disease -symptoms improving with diuresesis and creatinine stable today -in addition to 3rd spacing from low oncotic pressure/low albumin -has been difficult to treat as he refuses any invasive procedures, dialysis, and has CKD that may worsen if aggressive diuresis is used thus he has been reluctant at trials of increased diuretics -pt now amenable to IV diuresis -cont Lasix 60mg IV daily -monitor strict I/Os and daily weights, bun/creat, electrolytes and replete as needed -if not net neg with I/Os in 24 hours and if weight not down then increase Lasix to 60mg IV BID -plan to resume Torsemide on discharge either at current dose or at increased dose, pts will bring the prescription to review his home dose -cont home Coreg, Losartan Chronic stable angina -on ntg patch and prn SL NTG at home -cannot take ranexa due to CKD -likely little benefit from addition of Imdur as he is already on nitrates -HTN control and volume control -pt refuses invasive testing such as cardiac cath
--- NOTE | 2019-04-28 16:55 | EKG ---
Test Reason : Blood Pressure : / mmHG Vent. Rate : 082 BPM Atrial Rate : 082 BPM P-R Int : 186 ms QRS Dur : 118 ms QT Int : 434 ms P-R-T Axes : 042 061 126 degrees QTc Int : 507 ms SINUS RHYTHM WITH PREMATURE SUPRAVENTRICULAR COMPLEXES NON-SPECIFIC INTRA-VENTRICULAR CONDUCTION DELAY NONSPECIFIC ST AND T WAVE ABNORMALITY PROLONGED QT ABNORMAL ECG WHEN COMPARED WITH ECG OF 27-APR-2019 04:32, PREMATURE SUPRAVENTRICULAR COMPLEXES ARE NOW PRESENT Confirmed by ANEL STEWART MD ([id number]) on 04/28/2019 4:55:33 PM Referred By: Confirmed By:ANEL STEWART MD
--- NOTE | 2019-04-28 16:59 | EKG ---
Test Reason : Blood Pressure : / mmHG Vent. Rate : 081 BPM Atrial Rate : 081 BPM P-R Int : 214 ms QRS Dur : 120 ms QT Int : 396 ms P-R-T Axes : 045 064 079 degrees QTc Int : 460 ms POOR DATA QUALITY, INTERPRETATION MAY BE ADVERSELY AFFECTED SINUS RHYTHM WITH 1ST DEGREE A-V BLOCK WITH PREMATURE ATRIAL COMPLEXES WITH ABERRANT CONDUCTION NON-SPECIFIC INTRA-VENTRICULAR CONDUCTION DELAY NONSPECIFIC ST AND T WAVE ABNORMALITY ABNORMAL ECG WHEN COMPARED WITH ECG OF 07-APR-2019 01:37, ABERRANT CONDUCTION IS NOW PRESENT T WAVE INVERSION LESS EVIDENT IN LATERAL LEADS Confirmed by ANEL STEWART MD ([id number]) on 04/28/2019 4:58:33 PM Referred By: Confirmed By:ANEL STEWART MD
[2019-04-28] MEDS: DULoxetine HCL 30 MG CAPSULE.DR PO SCH (21:55)
[2019-04-28] MEDS: NITROGLYCERIN 0.4 MG/HOUR TD PATCH TD SCH (21:56)
[2019-04-28] MEDS: ATORVASTATIN CA 80 MG TABLET (FP) PO SCH (21:56)
[2019-04-28] MEDS: ASPIRIN 81 MG CHEWABLE TABLETS PO SCH (21:56)
[2019-04-29] MEDS: INSULIN SLIDING SCALE (NOVOLOG) 1 VIAL SQ SCH ×4 (06:36→21:39)
[2019-04-29] MEDS: oxyCODONE HCL 5 MG TABLET PO PRN ×2 (06:37→15:17)
[2019-04-29 08:31] LABS: BLOOD UREA NITROGEN 37.2 mg/dL (7-18); CALCIUM 8.6 mg/dL (8.5-10.1); CREATININE 2.5 mg/dL (0.55-1.3)
[2019-04-29] MEDS: LOSARTAN POTASSIUM 50 MG TABLET (FP) PO SCH (09:28)
[2019-04-29] MEDS: amLODIPine BESYLATE 5 MG TABLET (FP) PO SCH (09:28)
[2019-04-29] MEDS: CARVEDILOL 25 MG TABLET (FP) PO SCH ×2 (09:29→21:38)
[2019-04-29] MEDS: FUROSEMIDE 40 MG/4 ML INJECTABLE VIAL IVPUSH SCH (09:29)
[2019-04-29] MEDS: HEPARIN NA (PORCINE) 5,000 UNITS/ML 1ML VIAL SQ SCH ×2 (09:29→21:38)
[2019-04-29] MEDS: PREGABALIN 25 MG CAPSULE PO SCH ×2 (09:29→21:38)
--- NOTE | 2019-04-29 13:33 | PN ---
Progress Note, Physician Chief Complaint: less sob tele PVC's, 4 beats vt History of Present Illness: 68 year old male with a PMH of HTN, DMII, CKD, CAD s/p CABG x4 after nstemi 2015 at [facility], nuclear stress test 09/2016 after admission for chest pain, showed inferior/inferoapical ischemia LVEF 77%, chronic stable angina on NTG patch at home and ntg SL prn, TIA 2000, carotid stenosis s/p CEA 2007, MONICO, bleeding hemorrhoids s/p 2 complicated colonoscopies in the past, chronic cervical and lumbar disc disease, multiple surgeries and chronic pain, current CKD with nephrotic range proteinurea and chronic b/l LE edema. Several past admissions for duiresis. He has refused cardiac interventions including cardiac cath in the past. He previously decided to enter Hospice care.. He was discharged from Hospice after 3 months. He was seen outpatient 03/26/19, recently discharged 04/09/19 with same complaints of SEYMOUR with minimal exertion as well as continued episodes of chest pain mainly at night. He declined to increase his diuretics as he did not want to effect his creatinine. He came to the ER now because he has had worsening of his SOB, mainly at night when lying in bed to the point where he felt he needed to come back in. states that his LE edema is improved since recent hospitalization. states he was changed to Torsemide recently by his PMD but only took it for 2 days prior to coming to the ER. Currently feels better wearing O2. Is now agreeable to IV access and IV diuretics if it will make his sob better. - Current Medication List Current Medications: Active Medications Acetaminophen (Tylenol -) 650 mg PO Q6H PRN PRN Reason: PAIN LEVEL 1-5 Amlodipine Besylate (Norvasc -) 5 mg PO DAILY [facility] Last Admin: 04/29/19 09:28 Dose: 5 mg Aspirin (Asa -) 81 mg PO HS [facility] Last Admin: 04/28/19 21:56 Dose: 81 mg Atorvastatin Calcium (Lipitor -) 80 mg PO HS [facility] Last Admin: 04/28/19 21:56 Dose: 80 mg Carvedilol (Coreg -) 25 mg PO BID [facility] Last Admin: 04/29/19 09:29 Dose: 25 mg Duloxetine HCl (Cymbalta -) 60 mg PO [facility] Last Admin: 04/28/19 21:55 Dose: 60 mg Furosemide (Lasix Injection -) 60 mg IVPUSH DAILY [facility] Last Admin: 04/29/19 09:29 Dose: 60 mg Heparin Sodium (Porcine) (Heparin -) 5,000 unit SQ BID [facility] Last Admin: 04/29/19 09:29 Dose: Not Given Insulin Aspart (Novolog Vial Sliding Scale -) 1 vial SQ [facility]; Protocol Last Admin: 04/29/19 12:36 Dose: Not Given Losartan Potassium (Cozaar -) 100 mg PO DAILY [facility] Last Admin: 04/29/19 09:28 Dose: 100 mg Nitroglycerin (Nitro-Dur Patch -) 0.4 mg TD HS [facility] Last Admin: 04/28/19 21:56 Dose: 0.4 mg Nitroglycerin (Nitrostat -) 0.4 mg SL Q5M PRN PRN Reason: CHEST PAIN Last Admin: 04/28/19 05:20 Dose: 0.4 mg Oxycodone HCl (Roxicodone -) 5 mg PO Q4H PRN PRN Reason: PAIN LEVEL 6-10 Last Admin: 04/29/19 06:37 Dose: 5 mg Pregabalin (Lyrica -) 25 mg PO BID [facility] Last Admin: 04/29/19 09:29 Dose: 25 mg - Objective Vital Signs: Vital Signs Temperature 98.4 F 04/29/19 08:46 Pulse Rate 70 04/29/19 08:46 Respiratory Rate 20 04/29/19 08:46 Blood Pressure 151/79 04/29/19 08:46 O2 Sat by Pulse Oximetry (%) 97 04/29/19 08:48 Constitutional: Yes: No Distress, Calm Eyes: Yes: Conjunctiva Clear, EOM Intact HENT: Yes: Atraumatic, Normocephalic Neck: Yes: Trachea Midline Cardiovascular: Yes: Regular Rate and Rhythm Respiratory: Yes: Regular, CTA Bilaterally Gastrointestinal: Yes: Normal Bowel Sounds, Soft Genitourinary: Yes: WNL Musculoskeletal: Yes: WNL Edema: Yes Edema: LLE: 3+, RLE: 3+ Labs: CBC, BMP 04/28/19 06:35 04/29/19 06:40 INR, PTT INR 1.10 (0.83-1.09) H 04/27/19 05:07 Assessment/Plan 68 year old male with a PMH of HTN, DMII, CKD, CAD s/p CABG x4 after nstemi 2015 at [facility], nuclear stress test 09/2016 after admission for chest pain, showed inferior/inferoapical ischemia LVEF 77%, chronic stable angina on NTG patch at home and ntg SL prn, TIA 2000, carotid stenosis s/p CEA 2007, MONICO, bleeding hemorrhoids s/p 2 complicated colonoscopies in the past, chronic cervical and lumbar disc disease, multiple surgeries and chronic pain, current CKD with nephrotic range proteinurea and chronic b/l LE edema. Several past admissions for duiresis. He has refused cardiac interventions including cardiac cath in the past. He previously decided to enter Hospice care.. He was discharged from Hospice after 3 months. He was seen outpatient 03/26/19, recently discharged 04/09/19 with same complaints of SEYMOUR with minimal exertion as well as continued episodes of chest pain mainly at night. He declined to increase his diuretics as he did not want to effect his creatinine. He came to the ER now because he has had worsening of his SOB, mainly at night when lying in bed to the point where he felt he needed to come back in. states that his LE edema is improved since recent hospitalization. states he was changed to Torsemide recently by his PMD but only took it for 2 days prior to coming to the ER. Currently feels better wearing O2. Is now agreeable to IV access and IV diuretics if it will make his sob better. SOB-acute on chronic combined systolic and diastolic CHF, ischemic heart disease -symptoms improving with diuresesis and creatinine stable today -in addition to 3rd spacing from low oncotic pressure/low albumin -has been difficult to treat as he refuses any invasive procedures, dialysis, and has CKD that may worsen if aggressive diuresis is used thus he has been reluctant at trials of increased diuretics -pt now amenable to IV diuresis -cont Lasix 60mg IV daily -monitor strict I/Os and daily weights, bun/creat, electrolytes and replete as needed -if not net neg with I/Os in 24 hours and if weight not down then increase Lasix to 60mg IV BID -plan to resume Torsemide on discharge either at current dose or at increased dose, pts will bring the prescription to review his home dose -cont home Coreg, Losartan Chronic stable angina -on ntg patch and prn SL NTG at home -cannot take ranexa due to CKD -likely little benefit from addition of Imdur as he is already on nitrates -HTN control and volume control -pt refuses invasive testing such as cardiac cath
--- NOTE | 2019-04-29 16:08 | PN ---
Physical Exam: SUBJECTIVE: Patient seen and examined. Endorsed improvement of his SOB. OBJECTIVE: Vital Signs Period Temp Pulse Resp BP Sys/Guo Pulse Ox Last 24 Hr 97.7 F-98.4 F 65-73 15-20 137-174/62-81 97-97 GENERAL: The patient is awake, alert, and fully oriented, in no acute distress. HEAD: Normal with no signs of trauma. EYES: PERRL, extraocular movements intact, sclera anicteric, conjunctiva clear. No ptosis. LUNGS: Breath sounds equal, clear to auscultation bilaterally with decreased sounds in the lower lung valadez b/l, no wheezes, no crackles, no accessory muscle use. HEART: Regular rate and rhythm, S1, S2 without murmur, rub or gallop. ABDOMEN: Soft, nontender, nondistended, normoactive bowel sounds, no guarding, no rebound, no hepatosplenomegaly, no masses. EXTREMITIES: 2+ pulses, warm, well-perfused, 2+ edema. Laboratory Results - last 24 hr 04/28/19 04/29/19 04/29/19 21:59 06:20 06:40 Sodium 144 Potassium 4.0 Chloride 105 Carbon Dioxide 30 Anion Gap 10 BUN 37.2 H Creatinine 2.5 H Est GFR (CKD-EPI)AfAm 29.68 Est GFR (CKD-EPI)NonAf 25.61 POC Glucometer 242 135 Random Glucose 142 H Calcium 8.6 04/29/19 12:27 Sodium Potassium Chloride Carbon Dioxide Anion Gap BUN Creatinine Est GFR (CKD-EPI)AfAm Est GFR (CKD-EPI)NonAf POC Glucometer 230 Random Glucose Calcium Active Medications Generic Name Dose Route Start Last Admin Trade Name Freq PRN Reason Stop Dose Admin Acetaminophen 650 mg 04/28/19 13:26 Tylenol - PO Q6H PRN PAIN LEVEL 1-5 Amlodipine Besylate 5 mg 04/28/19 14:30 04/29/19 09:28 Norvasc - PO 5 mg DAILY [facility] Administration Aspirin 81 mg 04/28/19 22:00 04/28/19 21:56 Asa - PO 81 mg HS [facility] Administration Atorvastatin Calcium 80 mg 04/28/19 22:00 04/28/19 21:56 Lipitor - PO 80 mg HS [facility] Administration Carvedilol 25 mg 04/28/19 10:00 04/29/19 09:29 Coreg - PO 25 mg BID [facility] Administration Duloxetine HCl 60 mg 04/27/19 22:00 04/28/19 21:55 Cymbalta - PO 60 mg HS [facility] Administration Furosemide 60 mg 04/28/19 10:00 04/29/19 09:29 Lasix Injection - IVPUSH 60 mg DAILY [facility] Administration Heparin Sodium (Porcine) 5,000 unit 04/28/19 10:00 04/29/19 09:29 Heparin - SQ Not Given BID [facility] Insulin Aspart 1 vial 04/28/19 07:00 04/29/19 12:36 Novolog Vial Sliding Scale - SQ Not Given [facility] Protocol Losartan Potassium 100 mg 04/28/19 10:00 04/29/19 09:28 Cozaar - PO 100 mg DAILY [facility] Administration Nitroglycerin 0.4 mg 04/27/19 22:00 04/28/19 21:56 Nitro-Dur Patch - TD 0.4 mg HS [facility] Administration Nitroglycerin 0.4 mg 04/28/19 00:15 04/28/19 05:20 Nitrostat - SL 0.4 mg Q5M PRN Administration CHEST PAIN Oxycodone HCl 5 mg 04/28/19 13:26 04/29/19 15:17 Roxicodone - PO 5 mg Q4H PRN Administration PAIN LEVEL 6-10 Pregabalin 25 mg 04/28/19 10:00 04/29/19 09:29 Lyrica - PO 25 mg BID [facility] Administration ASSESSMENT/PLAN: 68 y/o man with h/o chronic systolic and diastolic heart failure, MONICO, CKD, NSTEMi, s/p CABG x 4, testicular cancer s/p resection and chemo, chronic back pain, carotid stenosis s/p CEA, and other medical problems who presented with worsening SOB. he was found to have acute CHF exacerbation Acute exacerbation of systolic and diastolic heart failure Pt explained that he feels alot better than yesterday tele with no events continue lasix 60 mg daily weight and strict I&O monitor renal function . creatinine 2.5 today almost near baseline O2 as needed. will do pre and post before DC cont losartan and coreg . obtain Leg U/S negative for DVT CAD s/p CABG and Chronic angina cont PRN SL Ng and NG patch cont coreg. cont ASA DM cont SSI Uncontrolled HTN cont losartan , and coreg . norvasc 5 mg added 6- code: DNR/DNI . Visit type - Emergency Visit Emergency Visit: Yes ED Registration Date: 04/27/19 Care time: The patient presented to the Emergency Department on the above date and was hospitalized for further evaluation of their emergent condition. - New Patient This patient is new to me today: Yes Date on this admission: 04/29/19 - Critical Care Critical Care patient: No - Discharge Referral Referred to [facility] Med P.C[facility] No ATTENDING PHYSICIAN STATEMENT I saw and evaluated the patient. I reviewed the resident's note and discussed the case with the resident. I agree with the resident's findings and plan as documented. SUBJECTIVE: OBJECTIVE: ASSESSMENT AND PLAN:
--- NOTE | 2019-04-29 17:03 | PN ---
Teaching Attending Note Name of Resident: Daylin Betts ATTENDING PHYSICIAN STATEMENT I saw and evaluated the patient. I reviewed the resident's note and discussed the case with the resident. I agree with the resident's findings and plan as documented. SUBJECTIVE: No fever or chills. no COPPOLA . SOB. feels fatigued . OBJECTIVE: NAD , MMM. CV: RRR, no MRG , + JVD Lungs: decreased breath sounds at bases, no wheezes or crackles. Ext: 2+ pitting edema. on legs. L > R. hyperpigmentation on shins ASSESSMENT AND PLAN: 68 y/o man with h/o chronic systolic and diastolic heart failure, MONICO, CKD, NSTEMi, s/p CABG x 4, testicular cancer s/p resection and chemo, chronic back pain, carotid stenosis s/p CEA, and other medical rpoblems who presented with worsening SOB. he was found to have acute CHF exacerbation 1- Acute systolic and diastolic heart failure: weight decreased - tele with no events - cont lasix 60 mg daily - O2 as needed. will do pre and post before DC - cont losartan and coreg . -Us neg fro DVT 2- CAD s/p CABG and Chronic angina: - cont PRN SL Ng and NG patch - cont coreg. - cont ASA 3- DM: cont SSI 4- HTN: better controlled cont losartan ,norvasc, and coreg . 5- R breast mass: being worked up as out pt 6- Code: DNR/DNI .
[2019-04-29] MEDS ORDERED: PT OWN MED DRAWER 7, Y5N ONE (21:19)
[2019-04-29] MEDS: ASPIRIN 81 MG CHEWABLE TABLETS PO SCH (21:38)
[2019-04-29] MEDS: DULoxetine HCL 30 MG CAPSULE.DR PO SCH (21:38)
[2019-04-29] MEDS: ATORVASTATIN CA 80 MG TABLET (FP) PO SCH (21:38)
[2019-04-29] MEDS: NITROGLYCERIN 0.4 MG/HOUR TD PATCH TD SCH (21:38)
--- NOTE | 2019-04-30 01:44 | PN ---
Progress Note (short form) - Note Progress Note: Night resident was informed that patient was having 8/10 chest pain and was asked to come evaluated patient. Patient was laying in bed in mild discomfort. Stated that chest pain occurred when he was out of bed and felt like gas pain and was relieved with belching. He then got into bed with assistance and stated that the pain recurred and felt worse. Pain was located on the left side of the chest with radiation down into the LUQ of the abdomen. The patient stated that the pain had since subsided to a dull pain. Stated that the pain was similar to previous anginal type chest pain and similar to the PR's he has had in the past. Denied shortness of breath, nausea, vomiting, diaphoresis, lightheadedness, syncope. While EKG was performed, patient stated that pain had resolved. Resting in bed with mild discomfort. RRR with no murmurs or rubs appreciated. Reproducible chest pain when palpated on both left and right side of the chest. Lungs with decreased breath sounds at bases. No crackles, coarse breath sounds, wheezing appreciated. on NC. Abdomen, soft non-tender. Normoactive bowel sounds Legs with significant 2+ pitting edema and tender to palpation. Vitals: HR 73 BP 173/71 RR 16 sat 98% on 1.5L Previous days notes reviewed Ordered EKG, EKG reviewed, continues to have non-specific ST changes in lead V6 , I. New T wave inversion in lead aVL noted. Qtc 479 Ordered CBC, BMP, cardiac profile. Troponin negative, no elevation of CK. No acute changes in CBC or BMP. Continue to monitor. Patient refusing invasive measures such as cardiac cath.
[2019-04-30] MEDS: oxyCODONE HCL 5 MG TABLET PO PRN ×3 (01:52→22:56)
[2019-04-30] MEDS: ACETAMINOPHEN 325 MG TABLET (FP) PO PRN ×2 (01:55→23:00)
[2019-04-30 02:06] LABS: HEMATOCRIT 27.8 % (35.4-49); HEMOGLOBIN 9.3 GM/dL (11.7-16.9); MCH 30.2 pg (25.7-33.7); MCHC 33.6 g/dl (32.0-35.9); MEAN CELL VOLUME 89.9 fl (80-96); MEAN PLT VOLUME 8.5 fl (7.5-11.1); PLATELET COUNT 221 K/MM3 (134-434); RBC 3.09 M/mm3 (4.00-5.60); RDW 14.7 % (11.9-15.9); WHITE BLOOD COUNT 10.7 K/mm3 (4.0-10.0)
[2019-04-30 02:31] LABS: ANION GAP 8 MMOL/L (8-16); BLOOD UREA NITROGEN 39.2 mg/dL (7-18); CALCIUM 8.2 mg/dL (8.5-10.1); CHLORIDE 105 mmol/L (98-107); CO2 30 mmol/L (21-32); CREATININE 2.7 mg/dL (0.55-1.3); GLUCOSE,RANDOM 262 mg/dL (74-106); POTASSIUM 4.5 mmol/L (3.5-5.1); SODIUM 143 mmol/L (136-145)
[2019-04-30] MEDS: INSULIN SLIDING SCALE (NOVOLOG) 1 VIAL SQ SCH ×4 (06:11→21:24)
[2019-04-30 07:59] LABS: BLOOD UREA NITROGEN 39.7 mg/dL (7-18); CALCIUM 8.1 mg/dL (8.5-10.1); CREATININE 2.7 mg/dL (0.55-1.3); POTASSIUM 4.3 mmol/L (3.5-5.1)
--- NOTE | 2019-04-30 10:02 | PN ---
Progress Note, Physician Chief Complaint: less sob. had cp felt like gas last night. tele PVC's, History of Present Illness: 68 year old male with a PMH of HTN, DMII, CKD, CAD s/p CABG x4 after nstemi 2015 at [facility], nuclear stress test 09/2016 after admission for chest pain, showed inferior/inferoapical ischemia LVEF 77%, chronic stable angina on NTG patch at home and ntg SL prn, TIA 2000, carotid stenosis s/p CEA 2007, [place], bleeding hemorrhoids s/p 2 complicated colonoscopies in the past, chronic cervical and lumbar disc disease, multiple surgeries and chronic pain, current CKD with nephrotic range proteinurea and chronic b/l LE edema. Several past admissions for duiresis. He has refused cardiac interventions including cardiac cath in the past. He previously decided to enter Hospice care.. He was discharged from Hospice after 3 months. He was seen outpatient 03/26/19, recently discharged 04/09/19 with same complaints of SE[place] with minimal exertion as well as continued episodes of chest pain mainly at night. He declined to increase his diuretics as he did not want to effect his creatinine. He came to the ER now because he has had worsening of his SOB, mainly at night when lying in bed to the point where he felt he needed to come back in. states that his LE edema is improved since recent hospitalization. states he was changed to Torsemide recently by his PMD but only took it for 2 days prior to coming to the ER. Currently feels better wearing O2. Is now agreeable to IV access and IV diuretics if it will make his sob better. - Current Medication List Current Medications: Active Medications Acetaminophen (Tylenol -) 650 mg PO Q6H PRN PRN Reason: PAIN LEVEL 1-5 Last Admin: 04/30/19 01:55 Dose: 650 mg Amlodipine Besylate (Norvasc -) 5 mg PO DAILY [facility] Last Admin: 04/29/19 09:28 Dose: 5 mg Aspirin (Asa -) 81 mg PO HS [facility] Last Admin: 04/29/19 21:38 Dose: 81 mg Atorvastatin Calcium (Lipitor -) 80 mg PO HS [facility] Last Admin: 04/29/19 21:38 Dose: 80 mg Carvedilol (Coreg -) 25 mg PO BID [facility] Last Admin: 04/29/19 21:38 Dose: 25 mg Duloxetine HCl (Cymbalta -) 60 mg PO HS [facility] Last Admin: 04/29/19 21:38 Dose: 60 mg Furosemide (Lasix Injection -) 60 mg IVPUSH DAILY [facility] Last Admin: 04/29/19 09:29 Dose: 60 mg Heparin Sodium (Porcine) (Heparin -) 5,000 unit SQ BID [facility] Last Admin: 04/29/19 21:38 Dose: Not Given Insulin Aspart (Novolog Vial Sliding Scale -) 1 vial SQ [facility]; Protocol Last Admin: 04/30/19 06:11 Dose: 2 units Losartan Potassium (Cozaar -) 100 mg PO DAILY [facility] Last Admin: 04/29/19 09:28 Dose: 100 mg Nitroglycerin (Nitro-Dur Patch -) 0.4 mg TD [facility] Last Admin: 04/29/19 21:38 Dose: 0.4 mg Nitroglycerin (Nitrostat -) 0.4 mg SL Q5M PRN PRN Reason: CHEST PAIN Last Admin: 04/28/19 05:20 Dose: 0.4 mg Oxycodone HCl (Roxicodone -) 5 mg PO Q4H PRN PRN Reason: PAIN LEVEL 6-10 Last Admin: 04/30/19 01:52 Dose: 5 mg Pregabalin (Lyrica -) 25 mg PO BID [facility] Last Admin: 04/29/19 21:38 Dose: 25 mg - Objective Vital Signs: Vital Signs Temperature 98.9 F 04/30/19 06:00 Pulse Rate 73 04/30/19 06:00 Respiratory Rate 18 04/30/19 06:00 Blood Pressure 166/71 04/30/19 06:00 O2 Sat by Pulse Oximetry (%) 97 04/29/19 21:00 Constitutional: Yes: No Distress, Calm Eyes: Yes: EOM Intact HENT: Yes: Normocephalic Neck: Yes: Trachea Midline Cardiovascular: Yes: Regular Rate and Rhythm Respiratory: Yes: CTA Bilaterally Gastrointestinal: Yes: Normal Bowel Sounds, Soft Musculoskeletal: Yes: Back Pain Extremities: Yes: WNL Edema: Yes Edema: LLE: 2+, RLE: 2+ Peripheral Pulses WNL: Yes Labs: CBC, BMP 04/30/19 01:45 04/30/19 06:30 INR, PTT INR 1.10 (0.83-1.09) H 04/27/19 05:07 Assessment/Plan 68 year old male with a PMH of HTN, DMII, CKD, CAD s/p CABG x4 after nstemi 2015 at [facility], nuclear stress test 09/2016 after admission for chest pain, showed inferior/inferoapical ischemia LVEF 77%, chronic stable angina on NTG patch at home and ntg SL prn, TIA 2000, carotid stenosis s/p CEA 2007, [place], bleeding hemorrhoids s/p 2 complicated colonoscopies in the past, chronic cervical and lumbar disc disease, multiple surgeries and chronic pain, current CKD with nephrotic range proteinurea and chronic b/l LE edema. Several past admissions for duiresis. He has refused cardiac interventions including cardiac cath in the past. He previously decided to enter Hospice care.. He was discharged from Hospice after 3 months. He was seen outpatient 03/26/19, recently discharged 04/09/19 with same complaints of [place] with minimal exertion as well as continued episodes of chest pain mainly at night. He declined to increase his diuretics as he did not want to effect his creatinine. He came to the ER now because he has had worsening of his SOB, mainly at night when lying in bed to the point where he felt he needed to come back in. states that his LE edema is improved since recent hospitalization. states he was changed to Torsemide recently by his PMD but only took it for 2 days prior to coming to the ER. Currently feels better wearing O2. Is now agreeable to IV access and IV diuretics if it will make his sob better. SOB-acute on chronic combined systolic and diastolic CHF, ischemic heart disease -symptoms improving with diuresesis and creatinine stable today -in addition to 3rd spacing from low oncotic pressure/low albumin -has been difficult to treat as he refuses any invasive procedures, dialysis, and has CKD that may worsen if aggressive diuresis is used thus he has been reluctant at trials of increased diuretics -pt now amenable to IV diuresis -cont Lasix 60mg IV daily -monitor strict I/Os and daily weights, bun/creat, electrolytes and replete as needed -if not net neg with I/Os in 24 hours and if weight not down then increase Lasix to 60mg IV BID -plan to resume Torsemide on discharge either at current dose or at increased dose, pts will bring the prescription to review his home dose -cont home Coreg, Losartan Chronic stable angina -on ntg patch and prn SL NTG at home -cannot take ranexa due to CKD -likely little benefit from addition of Imdur as he is already on nitrates -HTN control and volume control -pt refuses invasive testing such as cardiac cath
[2019-04-30] MEDS: FUROSEMIDE 40 MG/4 ML INJECTABLE VIAL IVPUSH SCH (10:51)
[2019-04-30] MEDS: LOSARTAN POTASSIUM 50 MG TABLET (FP) PO SCH (10:53)
[2019-04-30] MEDS: CARVEDILOL 25 MG TABLET (FP) PO SCH ×2 (10:53→21:24)
[2019-04-30] MEDS: PREGABALIN 25 MG CAPSULE PO SCH ×2 (10:53→21:24)
[2019-04-30] MEDS: HEPARIN NA (PORCINE) 5,000 UNITS/ML 1ML VIAL SQ SCH ×2 (10:54→21:19)
[2019-04-30] MEDS: amLODIPine BESYLATE 5 MG TABLET (FP) PO SCH (10:54)
--- NOTE | 2019-04-30 11:45 | EKG ---
Test Reason : Blood Pressure : / mmHG Vent. Rate : 067 BPM Atrial Rate : 067 BPM P-R Int : 184 ms QRS Dur : 116 ms QT Int : 454 ms P-R-T Axes : 018 067 119 degrees QTc Int : 479 ms NORMAL SINUS RHYTHM INCOMPLETE RIGHT BUNDLE BRANCH BLOCK PROLONGED QT ABNORMAL ECG WHEN COMPARED WITH ECG OF 27-APR-2019 09:49, PREMATURE SUPRAVENTRICULAR COMPLEXES ARE NO LONGER PRESENT Confirmed by Aaron Betancourt MD ([id number]) on 04/30/2019 11:44:58 AM Referred By: Confirmed By:Aaron Betancourt MD
--- NOTE | 2019-04-30 14:49 | PN ---
Physical Exam: SUBJECTIVE: Patient seen and examined. Pt endorsed chest pain overnight similar to his usual anginal pain. but mentioned that his shortness of breath has improved. OBJECTIVE: Vital Signs Period Temp Pulse Resp BP Sys/Guo Pulse Ox Last 24 Hr 97.7 F-98.9 F 69-78 16-18 145-166/59-78 97 GENERAL: The patient is awake, alert, and fully oriented, in no acute distress. HEAD: Normal with no signs of trauma. EYES: PERRL, extraocular movements intact, sclera anicteric, conjunctiva clear. No ptosis. LUNGS: Breath sounds equal, clear to auscultation bilaterally with decreased sounds in the lower lung valadez b/l, no wheezes, no crackles, no accessory muscle use. HEART: Regular rate and rhythm, S1, S2 without murmur, rub or gallop. ABDOMEN: Soft, nontender, nondistended, normoactive bowel sounds, no guarding, no rebound, no hepatosplenomegaly, no masses. EXTREMITIES: 2+ pulses, warm, well-perfused, 2+ edema. Laboratory Results - last 24 hr 04/29/19 04/29/19 04/30/19 16:32 21:37 01:45 WBC 10.7 H RBC 3.09 L Hgb 9.3 L Hct 27.8 L MCV 89.9 MCH 30.2 MCHC 33.6 RDW 14.7 Plt Count 221 MPV 8.5 Sodium Potassium Chloride Carbon Dioxide Anion Gap BUN Creatinine Est GFR (CKD-EPI)AfAm Est GFR (CKD-EPI)NonAf POC Glucometer 159 196 Random Glucose Calcium Creatine Kinase Troponin I 04/30/19 04/30/19 04/30/19 01:45 05:53 06:30 WBC RBC Hgb Hct MCV MCH MCHC RDW Plt Count MPV Sodium 143 142 Potassium 4.5 4.3 Chloride 105 105 Carbon Dioxide 30 30 Anion Gap 8 8 BUN 39.2 H 39.7 H Creatinine 2.7 H 2.7 H Est GFR (CKD-EPI)AfAm 27.04 27.04 Est GFR (CKD-EPI)NonAf 23.33 23.33 POC Glucometer 222 Random Glucose 262 H 208 H Calcium 8.2 L 8.1 L Creatine Kinase 63 Troponin I < 0.02 04/30/19 11:04 WBC RBC Hgb Hct MCV MCH MCHC RDW Plt Count MPV Sodium Potassium Chloride Carbon Dioxide Anion Gap BUN Creatinine Est GFR (CKD-EPI)AfAm Est GFR (CKD-EPI)NonAf POC Glucometer 198 Random Glucose Calcium Creatine Kinase Troponin I Active Medications Generic Name Dose Route Start Last Admin Trade Name Freq PRN Reason Stop Dose Admin Acetaminophen 650 mg 04/28/19 13:26 04/30/19 01:55 Tylenol - PO 650 mg Q6H PRN Administration PAIN LEVEL 1-5 Amlodipine Besylate 5 mg 04/28/19 14:30 04/30/19 10:54 Norvasc - PO 5 mg DAILY [facility] Administration Aspirin 81 mg 04/28/19 22:00 04/29/19 21:38 Asa - PO 81 mg HS [facility] Administration Atorvastatin Calcium 80 mg 04/28/19 22:00 04/29/19 21:38 Lipitor - PO 80 mg HS [facility] Administration Carvedilol 25 mg 04/28/19 10:00 04/30/19 10:53 Coreg - PO 25 mg BID [facility] Administration Duloxetine HCl 60 mg 04/27/19 22:00 04/29/19 21:38 Cymbalta - PO 60 mg HS [facility] Administration Furosemide 60 mg 04/28/19 10:00 04/30/19 10:51 Lasix Injection - IVPUSH 60 mg DAILY [facility] Administration Heparin Sodium (Porcine) 5,000 unit 04/28/19 10:00 04/30/19 10:54 Heparin - SQ Not Given BID [facility] Insulin Aspart 1 vial 04/28/19 07:00 04/30/19 06:11 Novolog Vial Sliding Scale - SQ 2 units ACHS [facility] Administration Protocol Losartan Potassium 100 mg 04/28/19 10:00 04/30/19 10:53 Cozaar - PO 100 mg DAILY [facility] Administration Nitroglycerin 0.4 mg 04/27/19 22:00 04/29/19 21:38 Nitro-Dur Patch - TD 0.4 mg HS [facility] Administration Nitroglycerin 0.4 mg 04/28/19 00:15 04/28/19 05:20 Nitrostat - SL 0.4 mg Q5M PRN Administration CHEST PAIN Oxycodone HCl 5 mg 04/28/19 13:26 04/30/19 01:52 Roxicodone - PO 5 mg Q4H PRN Administration PAIN LEVEL 6-10 Pregabalin 25 mg 04/28/19 10:00 04/30/19 10:53 Lyrica - PO 25 mg BID [facility] Administration ASSESSMENT/PLAN: 68 y/o man with h/o chronic systolic and diastolic heart failure, [place], CKD, NSTEMi, s/p CABG x 4, testicular cancer s/p resection and chemo, chronic back pain, carotid stenosis s/p CEA, and other medical problems who presented with worsening SOB. he was found to have acute CHF exacerbation Acute exacerbation of systolic and diastolic heart failure Pt explained that he feels alot better than yesterday tele with no events continue lasix 60 mg daily weight dropped to 102.33kg from 103.147 and strict I&O ( not documented) monitor renal function . creatinine increased 2.7 from 2.5 O2 as needed. will do pre and post before DC cont losartan and coreg . Pt continues to complain of leg pain but Leg U/S negative for DVT Noturnal pulse oxymetry O2 tonight to evaluate for home oxygen CAD s/p CABG and Chronic angina cont PRN SL Ng and NG patch cont coreg. cont ASA DM cont SSI Uncontrolled HTN cont losartan , and coreg . norvasc 5 mg added 6- code: DNR/DNI . Visit type - Emergency Visit Emergency Visit: Yes ED Registration Date: 04/27/19 Care time: The patient presented to the Emergency Department on the above date and was hospitalized for further evaluation of their emergent condition. - New Patient This patient is new to me today: No - Critical Care Critical Care patient: No - Discharge Referral Referred to [facility] Med [facility].C[facility] No ATTENDING PHYSICIAN STATEMENT I saw and evaluated the patient. I reviewed the resident's note and discussed the case with the resident. I agree with the resident's findings and plan as documented. SUBJECTIVE: OBJECTIVE: ASSESSMENT AND PLAN:
--- NOTE | 2019-04-30 15:31 | PN ---
Teaching Attending Note Name of Resident: Kylah Thompson ATTENDING PHYSICIAN STATEMENT I saw and evaluated the patient. I reviewed the resident's note and discussed the case with the resident. I agree with the resident's findings and plan as documented. SUBJECTIVE: No fever or chills , No COPPOLA. no SOB. cont to have LE edema , not compliant with collecting urine out put or diet OBJECTIVE: NAD, MMM. CV: RRR, no MRG, + JVD Lungs: decreased breath sounds at bases, no wheezes or crackles. Ext: 2+ pitting edema. Hyperpigmentation on shins. ASSESSMENT AND PLAN: 68 y/o man with h/o chronic systolic and diastolic heart failure, [place], CKD, NSTEMi, s/p CABG x 4, testicular cancer s/p resection and chemo, chronic back pain, carotid stenosis s/p CEA, and other medical rpoblems who presented with worsening SOB. he was found to have acute CHF exacerbation 1- Acute systolic and diastolic heart failure: weight decreased, but I&O are not documented correctly. pt is not compliant with diet as well ( chips and salty food ) - cont lasix 60 mg daily. breathing significantly improved. might not be able to get LE edema to normal - pre and post - check nocturnal pulse ox - cont losartan and coreg . 2- CAD s/p CABG and Chronic angina: - cont PRN SL Ng and NG patch. - cont coreg. - cont ASA 3- DM: cont SSI 4- HTN: cont losartan ,norvasc, and coreg . if need more control , can increase norvasc 5- R breast mass: being worked up as out pt 6- Code: DNR/DNI . ASSESSMENT AND PLAN:
[2019-04-30 16:18] VITALS: BMI 35.2
[2019-04-30] MEDS ORDERED: PT OWN MED DRAWER 7, Y5N ONE (21:18)
[2019-04-30] MEDS: ASPIRIN 81 MG CHEWABLE TABLETS PO SCH (21:24)
[2019-04-30] MEDS: ATORVASTATIN CA 80 MG TABLET (FP) PO SCH (21:24)
[2019-04-30] MEDS: DULoxetine HCL 30 MG CAPSULE.DR PO SCH (21:24)
[2019-04-30] MEDS: NITROGLYCERIN 0.4 MG/HOUR TD PATCH TD SCH (21:24)
[2019-05-01] MEDS ORDERED: HYDROCORTISONE 0.5% TOPICAL CREAM 30 GM TUBE TP ONE (01:24)
[2019-05-01] MEDS: oxyCODONE HCL 5 MG TABLET PO PRN ×2 (02:59→18:28)
[2019-05-01] MEDS: ACETAMINOPHEN 325 MG TABLET (FP) PO PRN ×2 (03:00→16:30)
[2019-05-01] MEDS ORDERED: ACETAMINOPHEN 325 MG TABLET (FP) PO ONE (05:02)
[2019-05-01] MEDS ORDERED: oxyCODONE HCL 5 MG TABLET PO ONE (05:27)
[2019-05-01] MEDS: INSULIN SLIDING SCALE (NOVOLOG) 1 VIAL SQ SCH ×4 (06:04→21:49)
[2019-05-01 06:38] LABS: BLOOD UREA NITROGEN 41.6 mg/dL (7-18); CALCIUM 8.3 mg/dL (8.5-10.1); CREATININE 2.8 mg/dL (0.55-1.3)
[2019-05-01 06:39] LABS: POTASSIUM 4.1 mmol/L (3.5-5.1)
[2019-05-01 07:06] LABS: BASO % 0.7 % (0-2.0); EOS % 4.9 % (0-4.5); HEMATOCRIT 29.5 % (35.4-49); HEMOGLOBIN 9.7 GM/dL (11.7-16.9); LYMPH % 29.5 % (8-40); MCH 29.8 pg (25.7-33.7); MCHC 32.8 g/dl (32.0-35.9); MEAN CELL VOLUME 90.7 fl (80-96); MEAN PLT VOLUME 9.2 fl (7.5-11.1); MONO % 10.1 % (3.8-10.2); NEUT % 54.8 % (42.8-82.8); PLATELET COUNT 215 K/MM3 (134-434); RBC 3.25 M/mm3 (4.00-5.60); RDW 14.7 % (11.9-15.9); WHITE BLOOD COUNT 7.6 K/mm3 (4.0-10.0)
--- NOTE | 2019-05-01 08:50 | PN ---
Teaching Attending Note Name of Resident: Dyalin Betts ATTENDING PHYSICIAN STATEMENT I saw and evaluated the patient. I reviewed the resident's note and discussed the case with the resident. I agree with the resident's findings and plan as documented. SUBJECTIVE: Patient feels depressed. OBJECTIVE: Vital Signs Temperature 97.8 F 05/01/19 06:00 Pulse Rate 66 05/01/19 06:00 Respiratory Rate 18 05/01/19 06:00 Blood Pressure 156/68 05/01/19 06:00 O2 Sat by Pulse Oximetry (%) 97 04/30/19 21:00 GENERAL: The patient is awake, alert, and fully oriented, in mild acute distress. HEAD: Normal with no signs of trauma. EYES: PERRL, extraocular movements intact, sclera anicteric, conjunctiva clear. ENT: Ears normal, oropharynx clear without exudates, moist mucous membranes. NECK: Trachea midline, full range of motion, supple. LUNGS: decreased Breath sounds BS, clear to auscultation bilaterally, no wheezes, no crackles, mild accessory muscle use on oxygen . HEART: Regular rate and rhythm, S1, S2 without murmur, rub or gallop. ABDOMEN: Soft, NT,ND, normoactive bowel sounds, no guarding, no rebound, no hepatosplenomegaly, no masses. EXTREMITIES: 2+ pulses, warm, well-perfused, +4 edema b/l NEUROLOGICAL: Cranial nerves II through XII grossly intact. Normal speech, gait is stable. PSYCH: Normal mood, normal affect. SKIN: Warm, dry, normal turgor, no rashes or lesions noted CBCD WBC 7.6 K/mm3 (4.0-10.0) 05/01/19 05:25 RBC 3.25 M/mm3 (4.00-5.60) L 05/01/19 05:25 Hgb 9.7 GM/dL (11.7-16.9) L 05/01/19 05:25 Hct 29.5 % (35.4-49) L 05/01/19 05:25 MCV 90.7 fl (80-96) 05/01/19 05:25 MCHC 32.8 g/dl (32.0-35.9) 05/01/19 05:25 RDW 14.7 % (11.9-15.9) 05/01/19 05:25 Plt Count 215 K/MM3 (134-434) 05/01/19 05:25 MPV 9.2 fl (7.5-11.1) 05/01/19 05:25 CMP Sodium 141 mmol/L (136-145) 05/01/19 05:25 Potassium 4.1 mmol/L (3.5-5.1) 05/01/19 05:25 Chloride 105 mmol/L (98-107) 05/01/19 05:25 Carbon Dioxide 29 mmol/L (21-32) 05/01/19 05:25 Anion Gap 8 MMOL/L (8-16) 05/01/19 05:25 BUN 41.6 mg/dL (7-18) H 05/01/19 05:25 Creatinine 2.8 mg/dL (0.55-1.3) H 05/01/19 05:25 Random Glucose 237 mg/dL (74-106) H 05/01/19 05:25 Calcium 8.3 mg/dL (8.5-10.1) L 05/01/19 05:25 Total Bilirubin 0.6 mg/dL (0.2-1) 04/27/19 05:07 AST 14 U/L (15-37) L 04/27/19 05:07 ALT 18 U/L (13-61) 04/27/19 05:07 Alkaline Phosphatase 108 U/L (45-117) 04/27/19 05:07 Total Protein 6.7 g/dl (6.4-8.2) 04/27/19 05:07 Albumin 2.8 g/dl (3.4-5.0) L 04/27/19 05:07 CARDIAC ENZYMES Creatine Kinase 63 U/L (26-308) 04/30/19 01:45 Troponin I < 0.02 ng/ml (0.00-0.05) 04/30/19 01:45 Home Medications Medication Instructions Recorded Aspirin [ASA -] 81 mg PO HS 09/20/15 Atorvastatin Ca [Lipitor] 80 mg PO HS 09/20/15 Carvedilol 25 mg PO BID 09/20/15 Cholecalciferol (Vitamin D3) 200 unit PO DAILY 09/20/15 [D3-2000] Nitroglycerin Sublingual 0.4 mg SL [id number] PRN #30 tab 10/07/16 [Nitrostat -] Multivit-Min/FA/Lycopen/Lutein 1 each PO DAILY 11/22/17 [Centrum Silver Men Tablet] Nitroglycerin Patch [Nitro-Dur 0.4 mg TD HS 11/22/17 Patch -] Ferrous Sulfate [Iron] 325 mg PO DAILY 07/27/18 Ascorbic Acid [Vitamin C -] 500 mg PO DAILY tablet 09/15/18 Blood Sugar Diagnostic [Glucose 1 each [facility] #30 strip 09/21/18 Test Strip] Duloxetine HCl [Cymbalta] 60 mg PO HS 02/08/19 Losartan Potassium 100 mg PO BID 02/08/19 Pregabalin [Lyrica] 25 mg PO BID 02/08/19 Sitagliptin Phosphate [Januvia] 50 mg PO DAILY 02/08/19 Current Medications Generic Name Dose Route Start Last Admin Trade Name Freq PRN Reason Stop Dose Admin Acetaminophen 650 mg 04/28/19 13:26 05/01/19 03:00 Tylenol - PO 650 mg Q6H PRN Administration PAIN LEVEL 1-5 Amlodipine Besylate 5 mg 04/28/19 14:30 04/30/19 10:54 Norvasc - PO 5 mg DAILY [facility] Administration Aspirin 81 mg 04/28/19 22:00 04/30/19 21:24 Asa - PO 81 mg HS [facility] Administration Atorvastatin Calcium 80 mg 04/28/19 22:00 04/30/19 21:24 Lipitor - PO 80 mg HS [facility] Administration Carvedilol 25 mg 04/28/19 10:00 04/30/19 21:24 Coreg - PO 25 mg BID [facility] Administration Duloxetine HCl 60 mg 04/27/19 22:00 04/30/19 21:24 Cymbalta - PO 60 mg HS [facility] Administration Furosemide 60 mg 04/28/19 10:00 04/30/19 10:51 Lasix Injection - IVPUSH 60 mg DAILY [facility] Administration Heparin Sodium (Porcine) 5,000 unit 04/28/19 10:00 04/30/19 21:19 Heparin - SQ Not Given BID [facility] Insulin Aspart 1 vial 04/28/19 07:00 05/01/19 06:04 Novolog Vial Sliding Scale - SQ 2 units ACHS [facility] Administration Protocol Losartan Potassium 100 mg 04/28/19 10:00 04/30/19 10:53 Cozaar - PO 100 mg DAILY [facility] Administration Nitroglycerin 0.4 mg 04/27/19 22:00 04/30/19 21:24 Nitro-Dur Patch - TD 0.4 mg HS [facility] Administration Nitroglycerin 0.4 mg 04/28/19 00:15 04/28/19 05:20 Nitrostat - SL 0.4 mg Q5M PRN Administration CHEST PAIN Oxycodone HCl 5 mg 04/28/19 13:26 05/01/19 02:59 Roxicodone - PO 5 mg Q4H PRN Administration PAIN LEVEL 6-10 Pregabalin 25 mg 04/28/19 10:00 04/30/19 21:24 Lyrica - PO 25 mg BID [facility] Administration Intake & Output 04/28/19 04/29/19 04/30/19 05/01/19 23:59 23:59 23:59 23:59 Intake Total 420 1090 960 880 Output Total 200 675 100 Balance 420 890 285 780 Weight 100.811 kg 103.147 kg 102.058 kg 103.963 kg ASSESSMENT AND PLAN: 68 y/o man with h/o chronic systolic and diastolic heart failure, [place], CKD, NSTEMi, s/p CABG x 4, testicular cancer s/p resection and chemo, chronic back pain, carotid stenosis s/p CEA, who presented with worsening SOB. he was found to have acute systolic and diastolic CHF exacerbation # Acute systolic and diastolic heart failure: on IV lasix 60mg IV daily , I&O are not documented correctly. pt is not compliant with Is and Os, with diet as well ( chips and salty food ) continues to eat. breathing significantly improved. Nephro consulted pre and post ordered but patient refused, refused nocturnal pulse ox . cont losartan and coreg . # CAD s/p CABG and Chronic angina: cont PRN SL Ng and NG patch, continue coreg and Aspirin. # T2DM: cont SSI # HTN: cont losartan ,norvasc, and coreg . # R breast mass: being worked up as out pt Code: DNR/DNI .
--- NOTE | 2019-05-01 10:33 | PN ---
Physical Exam: SUBJECTIVE: Patient seen and examined. Pt was in depressed mood. Pt explained that he felt similar to the day prior to when he got admitted to hospice. He endorsed pain in bilateral lower extremities and well as lower back. OBJECTIVE: Vital Signs Period Temp Pulse Resp BP Sys/Guo Pulse Ox Last 24 Hr 97.7 F-99.0 F 66-77 16-20 144-157/59-78 97 GENERAL: The patient is awake, alert, and fully oriented, and depressed. HEAD: Normal with no signs of trauma. EYES: PERRL, extraocular movements intact, sclera anicteric, conjunctiva clear. No ptosis. LUNGS: Breath sounds equal, clear to auscultation bilaterally with decreased sounds in the lower lung valadez b/l, no wheezes, no crackles, no accessory muscle use. HEART: Regular rate and rhythm, S1, S2 without murmur, rub or gallop. ABDOMEN: Soft, nontender, nondistended, normoactive bowel sounds, no guarding, no rebound, no hepatosplenomegaly, no masses. EXTREMITIES: 2+ pulses, warm, well-perfused, 2+ edema in the lower extremities and as of 05/01/19 in the both hands at a1+. Laboratory Results - last 24 hr 04/30/19 04/30/19 05/01/19 11:04 20:36 05:25 WBC 7.6 RBC 3.25 L Hgb 9.7 L Hct 29.5 L MCV 90.7 MCH 29.8 MCHC 32.8 RDW 14.7 Plt Count 215 MPV 9.2 Absolute Neuts (auto) 4.2 Neutrophils % 54.8 Lymphocytes % 29.5 Monocytes % 10.1 Eosinophils % 4.9 H Basophils % 0.7 Nucleated RBC % 0 Sodium Potassium Chloride Carbon Dioxide Anion Gap BUN Creatinine Est GFR (CKD-EPI)AfAm Est GFR (CKD-EPI)NonAf POC Glucometer 198 260 Random Glucose Calcium 05/01/19 05/01/19 05:25 05:43 WBC RBC Hgb Hct MCV MCH MCHC RDW Plt Count MPV Absolute Neuts (auto) Neutrophils % Lymphocytes % Monocytes % Eosinophils % Basophils % Nucleated RBC % Sodium 141 Potassium 4.1 Chloride 105 Carbon Dioxide 29 Anion Gap 8 BUN 41.6 H Creatinine 2.8 H Est GFR (CKD-EPI)AfAm 25.88 Est GFR (CKD-EPI)NonAf 22.33 POC Glucometer 234 Random Glucose 237 H Calcium 8.3 L Active Medications Generic Name Dose Route Start Last Admin Trade Name Freq PRN Reason Stop Dose Admin Acetaminophen 650 mg 04/28/19 13:26 05/01/19 03:00 Tylenol - PO 650 mg Q6H PRN Administration PAIN LEVEL 1-5 Amlodipine Besylate 5 mg 04/28/19 14:30 04/30/19 10:54 Norvasc - PO 5 mg DAILY [facility] Administration Aspirin 81 mg 04/28/19 22:00 04/30/19 21:24 Asa - PO 81 mg HS [facility] Administration Atorvastatin Calcium 80 mg 04/28/19 22:00 04/30/19 21:24 Lipitor - PO 80 mg HS [facility] Administration Carvedilol 25 mg 04/28/19 10:00 04/30/19 21:24 Coreg - PO 25 mg BID [facility] Administration Duloxetine HCl 60 mg 04/27/19 22:00 04/30/19 21:24 Cymbalta - PO 60 mg HS [facility] Administration Furosemide 60 mg 04/28/19 10:00 04/30/19 10:51 Lasix Injection - IVPUSH 60 mg DAILY [facility] Administration Heparin Sodium (Porcine) 5,000 unit 04/28/19 10:00 04/30/19 21:19 Heparin - SQ Not Given BID [facility] Insulin Aspart 1 vial 04/28/19 07:00 05/01/19 06:04 Novolog Vial Sliding Scale - SQ 2 units ACHS [facility] Administration Protocol Losartan Potassium 100 mg 04/28/19 10:00 04/30/19 10:53 Cozaar - PO 100 mg DAILY [facility] Administration Nitroglycerin 0.4 mg 04/27/19 22:00 04/30/19 21:24 Nitro-Dur Patch - TD 0.4 mg HS [facility] Administration Nitroglycerin 0.4 mg 04/28/19 00:15 04/28/19 05:20 Nitrostat - SL 0.4 mg Q5M PRN Administration CHEST PAIN Oxycodone HCl 5 mg 04/28/19 13:26 05/01/19 02:59 Roxicodone - PO 5 mg Q4H PRN Administration PAIN LEVEL 6-10 Pregabalin 25 mg 04/28/19 10:00 04/30/19 21:24 Lyrica - PO 25 mg BID [facility] Administration ASSESSMENT/PLAN: 68 y/o man with h/o chronic systolic and diastolic heart failure, MONICO, CKD, NSTEMi, s/p CABG x 4, testicular cancer s/p resection and chemo, chronic back pain, carotid stenosis s/p CEA, and other medical problems who presented with worsening SOB. he was found to have acute CHF exacerbation Acute exacerbation of systolic and diastolic heart failure Pt explained that he feels very depressed and that he aches everywhere tele with no events continue lasix 60 mg daily weight increased to 103.963 from 102.33kg monitor renal function . creatinine increased 2.8 from 2.7 O2 as needed. will do pre and post before DC cont losartan and coreg . Pt continues to complain of leg pain but Leg U/S negative for DVT Noturnal pulse oxymetry O2 patient refused. Pt says that he will buy the oxygen himself if he needs it at home CAD s/p CABG and Chronic angina cont PRN SL Ng and NG patch cont coreg. cont ASA DM cont SSI BG today was at 237 Uncontrolled HTN cont losartan , and coreg . norvasc 5 mg added Depressed Mood Pt explained that he feels very depressed. He admits that he would prefer if he could go home, hold her animald ans sleep forever. Dr Land consult 6- code: DNR/DNI . Visit type - Emergency Visit Emergency Visit: Yes ED Registration Date: 04/27/19 Care time: The patient presented to the Emergency Department on the above date and was hospitalized for further evaluation of their emergent condition. - New Patient This patient is new to me today: No - Critical Care Critical Care patient: No - Discharge Referral Referred to [facility] Med [facility].C.: No ATTENDING PHYSICIAN STATEMENT I saw and evaluated the patient. I reviewed the resident's note and discussed the case with the resident. I agree with the resident's findings and plan as documented. SUBJECTIVE: OBJECTIVE: ASSESSMENT AND PLAN:
[2019-05-01] MEDS: LOSARTAN POTASSIUM 50 MG TABLET (FP) PO SCH (11:31)
[2019-05-01] MEDS: FUROSEMIDE 40 MG/4 ML INJECTABLE VIAL IVPUSH SCH (11:32)
[2019-05-01] MEDS: amLODIPine BESYLATE 5 MG TABLET (FP) PO SCH (11:32)
[2019-05-01] MEDS: CARVEDILOL 25 MG TABLET (FP) PO SCH ×2 (11:32→21:51)
[2019-05-01] MEDS: PREGABALIN 25 MG CAPSULE PO SCH ×2 (11:32→21:52)
[2019-05-01] MEDS: HEPARIN NA (PORCINE) 5,000 UNITS/ML 1ML VIAL SQ SCH ×3 (11:33→21:50)
--- NOTE | 2019-05-01 12:10 | PN ---
Progress Note, Physician Chief Complaint: less sob. edema worse. has back pain. tele PVC's, History of Present Illness: 68 year old male with a PMH of HTN, DMII, CKD, CAD s/p CABG x4 after nstemi [address] [facility], nuclear stress test 09/2016 after admission for chest pain, showed inferior/inferoapical ischemia LVEF 77%, chronic stable angina on NTG patch at home and ntg SL prn, TIA 2000, carotid stenosis s/p CEA 2007, MONICO, bleeding hemorrhoids s/p 2 complicated colonoscopies in the past, chronic cervical and lumbar disc disease, multiple surgeries and chronic pain, current CKD with nephrotic range proteinurea and chronic b/l LE edema. Several past admissions for duiresis. He has refused cardiac interventions including cardiac cath in the past. He previously decided to enter Hospice care.. He was discharged from Hospice after 3 months. He was seen outpatient 03/26/19, recently discharged 04/09/19 with same complaints of SEYMOUR with minimal exertion as well as continued episodes of chest pain mainly at night. He declined to increase his diuretics as he did not want to effect his creatinine. He came to the ER now because he has had worsening of his SOB, mainly at night when lying in bed to the point where he felt he needed to come back in. states that his LE edema is improved since recent hospitalization. states he was changed to Torsemide recently by his PMD but only took it for 2 days prior to coming to the ER. Currently feels better wearing O2. Is now agreeable to IV access and IV diuretics if it will make his sob better. he is drinking ad sergio from the tap and eating salty foods from the vending machines. - Current Medication List Current Medications: Active Medications Acetaminophen (Tylenol -) 650 mg PO Q6H PRN PRN Reason: PAIN LEVEL 1-5 Last Admin: 05/01/19 03:00 Dose: 650 mg Amlodipine Besylate (Norvasc -) 5 mg PO DAILY [facility] Last Admin: 05/01/19 11:32 Dose: 5 mg Aspirin (Asa -) 81 mg PO HS [facility] Last Admin: 04/30/19 21:24 Dose: 81 mg Atorvastatin Calcium (Lipitor -) 80 mg PO HS [facility] Last Admin: 04/30/19 21:24 Dose: 80 mg Carvedilol (Coreg -) 25 mg PO BID [facility] Last Admin: 05/01/19 11:32 Dose: 25 mg Duloxetine HCl (Cymbalta -) 60 mg PO HS [facility] Last Admin: 04/30/19 21:24 Dose: 60 mg Furosemide (Lasix Injection -) 60 mg IVPUSH DAILY [facility] Last Admin: 05/01/19 11:32 Dose: 60 mg Heparin Sodium (Porcine) (Heparin -) 5,000 unit SQ BID [facility] Last Admin: 04/30/19 21:19 Dose: Not Given Insulin Aspart (Novolog Vial Sliding Scale -) 1 vial SQ ACHS [facility]; Protocol Last Admin: 05/01/19 06:04 Dose: 2 units Losartan Potassium (Cozaar -) 100 mg PO DAILY [facility] Last Admin: 05/01/19 11:31 Dose: 100 mg Nitroglycerin (Nitro-Dur Patch -) 0.4 mg TD [facility] Last Admin: 04/30/19 21:24 Dose: 0.4 mg Nitroglycerin (Nitrostat -) 0.4 mg SL Q5M PRN PRN Reason: CHEST PAIN Last Admin: 04/28/19 05:20 Dose: 0.4 mg Oxycodone HCl (Roxicodone -) 5 mg PO Q4H PRN PRN Reason: PAIN LEVEL 6-10 Last Admin: 05/01/19 02:59 Dose: 5 mg Pregabalin (Lyrica -) 25 mg PO BID [facility] Last Admin: 05/01/19 11:32 Dose: 25 mg - Objective Vital Signs: Vital Signs Temperature 97.8 F 05/01/19 06:00 Pulse Rate 66 05/01/19 06:00 Respiratory Rate 18 05/01/19 06:00 Blood Pressure 156/68 05/01/19 06:00 O2 Sat by Pulse Oximetry (%) 97 04/30/19 21:00 Constitutional: Yes: No Distress, Calm Eyes: Yes: EOM Intact HENT: Yes: Normocephalic Neck: Yes: Supple, Trachea Midline Cardiovascular: Yes: Regular Rate and Rhythm Respiratory: Yes: CTA Bilaterally, Dullness (bilat bases) Gastrointestinal: Yes: Normal Bowel Sounds Musculoskeletal: Yes: Back Pain Extremities: Yes: WNL Edema: Yes Edema: LLE: 2+, RLE: 2+ Peripheral Pulses WNL: Yes Labs: CBC, BMP 05/01/19 05:25 05/01/19 05:25 INR, PTT INR 1.10 (0.83-1.09) H 04/27/19 05:07 Assessment/Plan 68 year old male with a PMH of HTN, DMII, CKD, CAD s/p CABG x4 after nstemi [address] [facility], nuclear stress test 09/2016 after admission for chest pain, showed inferior/inferoapical ischemia LVEF 77%, chronic stable angina on NTG patch at home and ntg SL prn, TIA 2000, carotid stenosis s/p CEA 2007, MONICO, bleeding hemorrhoids s/p 2 complicated colonoscopies in the past, chronic cervical and lumbar disc disease, multiple surgeries and chronic pain, current CKD with nephrotic range proteinurea and chronic b/l LE edema. Several past admissions for duiresis. He has refused cardiac interventions including cardiac cath in the past. He previously decided to enter Hospice care.. He was discharged from Hospice after 3 months. He was seen outpatient 03/26/19, recently discharged 04/09/19 with same complaints of SEYMOUR with minimal exertion as well as continued episodes of chest pain mainly at night. He declined to increase his diuretics as he did not want to effect his creatinine. He came to the ER now because he has had worsening of his SOB, mainly at night when lying in bed to the point where he felt he needed to come back in. states that his LE edema is improved since recent hospitalization. states he was changed to Torsemide recently by his PMD but only took it for 2 days prior to coming to the ER. Currently feels better wearing O2. Is now agreeable to IV access and IV diuretics if it will make his sob better. SOB-acute on chronic combined systolic and diastolic CHF, ischemic heart disease -symptoms improving with diuresesis and creatinine stable today -in addition to 3rd spacing from low oncotic pressure/low albumin -has been difficult to treat as he refuses any invasive procedures, dialysis, and has CKD that may worsen if aggressive diuresis is used thus he has been reluctant at trials of increased diuretics -pt now amenable to IV diuresis -cont Lasix 60mg IV daily -monitor strict I/Os and daily weights, bun/creat, electrolytes and replete as needed -if not net neg with I/Os in 24 hours and if weight not down then increase Lasix to 60mg IV BID -plan to resume Torsemide on discharge either at current dose or at increased dose, pts will bring the prescription to review his home dose -cont home Coreg, Losartan -discussed with patient the need for fluid and salt restriction. Chronic stable angina -on ntg patch and prn SL NTG at home -cannot take ranexa due to CKD -likely little benefit from addition of Imdur as he is already on nitrates -HTN control and volume control -pt refuses invasive testing such as cardiac cath
[2019-05-01] MEDS ORDERED: PT OWN MED DRAWER 7, Y5N ONE (21:42)
[2019-05-01] MEDS: DULoxetine HCL 30 MG CAPSULE.DR PO SCH (21:51)
[2019-05-01] MEDS: ASPIRIN 81 MG CHEWABLE TABLETS PO SCH (21:51)
[2019-05-01] MEDS: ATORVASTATIN CA 80 MG TABLET (FP) PO SCH (21:52)
[2019-05-01] MEDS: NITROGLYCERIN 0.4 MG/HOUR TD PATCH TD SCH (21:52)
[2019-05-02] MEDS: oxyCODONE HCL 5 MG TABLET PO PRN ×2 (02:12→22:36)
[2019-05-02] MEDS: INSULIN SLIDING SCALE (NOVOLOG) 1 VIAL SQ SCH ×4 (06:57→22:41)
[2019-05-02 09:45] LABS: BLOOD UREA NITROGEN 44.2 mg/dL (7-18); CALCIUM 8.5 mg/dL (8.5-10.1); POTASSIUM 4.2 mmol/L (3.5-5.1)
[2019-05-02] MEDS: amLODIPine BESYLATE 5 MG TABLET (FP) PO SCH (11:10)
[2019-05-02] MEDS: FUROSEMIDE 40 MG/4 ML INJECTABLE VIAL IVPUSH SCH ×2 (11:11→17:14)
[2019-05-02] MEDS: LOSARTAN POTASSIUM 50 MG TABLET (FP) PO SCH (11:11)
[2019-05-02] MEDS: CARVEDILOL 25 MG TABLET (FP) PO SCH ×2 (11:11→22:27)
[2019-05-02] MEDS: PREGABALIN 25 MG CAPSULE PO SCH ×2 (11:11→22:27)
[2019-05-02] MEDS: HEPARIN NA (PORCINE) 5,000 UNITS/ML 1ML VIAL SQ SCH ×2 (11:12→22:27)
--- NOTE | 2019-05-02 11:25 | PN ---
Teaching Attending Note Name of Resident: Daylin Betts ATTENDING PHYSICIAN STATEMENT I saw and evaluated the patient. I reviewed the resident's note and discussed the case with the resident. I agree with the resident's findings and plan as documented. SUBJECTIVE: Patient is feeling better with no acute distress, given a dose zaroxylyn. OBJECTIVE: Vital Signs Temperature 98.3 F 05/02/19 06:00 Pulse Rate 92 H 05/02/19 11:00 Respiratory Rate 18 05/02/19 06:00 Blood Pressure 155/89 05/02/19 06:00 O2 Sat by Pulse Oximetry (%) 94 L 05/02/19 11:00 GENERAL: The patient is awake, alert, and fully oriented, in no acute distress. HEAD: Normal with no signs of trauma. EYES: PERRL, extraocular movements intact, sclera anicteric, conjunctiva clear. ENT: Ears normal, oropharynx clear without exudates, moist mucous membranes. NECK: Trachea midline, full range of motion, supple. LUNGS: Breath sounds equal, clear to auscultation bilaterally, no wheezes, no crackles, comfortable. HEART: Regular rate and rhythm, S1, S2 without murmur, rub or gallop. ABDOMEN: Soft, Nt,ND, normoactive bowel sounds, no guarding, no rebound, no hepatosplenomegaly, no masses. EXTREMITIES: 2+ pulses, warm, well-perfused, +3 edema b/l NEUROLOGICAL: Cranial nerves II through XII grossly intact. Normal speech, gait not observed. PSYCH: Normal mood, normal affect. SKIN: Warm, dry, normal turgor, no rashes or lesions noted CBCD WBC 7.6 K/mm3 (4.0-10.0) 05/01/19 05:25 RBC 3.25 M/mm3 (4.00-5.60) L 05/01/19 05:25 Hgb 9.7 GM/dL (11.7-16.9) L 05/01/19 05:25 Hct 29.5 % (35.4-49) L 05/01/19 05:25 MCV 90.7 fl (80-96) 05/01/19 05:25 MCHC 32.8 g/dl (32.0-35.9) 05/01/19 05:25 RDW 14.7 % (11.9-15.9) 05/01/19 05:25 Plt Count 215 K/MM3 (134-434) 05/01/19 05:25 MPV 9.2 fl (7.5-11.1) 05/01/19 05:25 CMP Sodium 142 mmol/L (136-145) 05/02/19 08:45 Potassium 4.2 mmol/L (3.5-5.1) 05/02/19 08:45 Chloride 106 mmol/L (98-107) 05/02/19 08:45 Carbon Dioxide 30 mmol/L (21-32) 05/02/19 08:45 Anion Gap 6 MMOL/L (8-16) L 05/02/19 08:45 BUN 44.2 mg/dL (7-18) H 05/02/19 08:45 Creatinine 3.0 mg/dL (0.55-1.3) H 05/02/19 08:45 Random Glucose 128 mg/dL (74-106) H 05/02/19 08:45 Calcium 8.5 mg/dL (8.5-10.1) 05/02/19 08:45 Total Bilirubin 0.6 mg/dL (0.2-1) 04/27/19 05:07 AST 14 U/L (15-37) L 04/27/19 05:07 ALT 18 U/L (13-61) 04/27/19 05:07 Alkaline Phosphatase 108 U/L (45-117) 04/27/19 05:07 Total Protein 6.7 g/dl (6.4-8.2) 04/27/19 05:07 Albumin 2.8 g/dl (3.4-5.0) L 04/27/19 05:07 CARDIAC ENZYMES Creatine Kinase 63 U/L (26-308) 04/30/19 01:45 Troponin I < 0.02 ng/ml (0.00-0.05) 04/30/19 01:45 Current Medications Generic Name Dose Route Start Last Admin Trade Name Freq PRN Reason Stop Dose Admin Acetaminophen 650 mg 04/28/19 13:26 05/01/19 03:00 Tylenol - PO 650 mg Q6H PRN Administration PAIN LEVEL 1-5 Amlodipine Besylate 5 mg 04/28/19 14:30 05/02/19 11:10 Norvasc - PO 5 mg DAILY [facility] Administration Aspirin 81 mg 04/28/19 22:00 05/01/19 21:51 Asa - PO 81 mg HS [facility] Administration Atorvastatin Calcium 80 mg 04/28/19 22:00 05/01/19 21:52 Lipitor - PO 80 mg HS [facility] Administration Carvedilol 25 mg 04/28/19 10:00 05/02/19 11:11 Coreg - PO 25 mg BID [facility] Administration Duloxetine HCl 60 mg 04/27/19 22:00 05/01/19 21:51 Cymbalta - PO 60 mg HS [facility] Administration Furosemide 60 mg 04/28/19 10:00 05/02/19 11:11 Lasix Injection - IVPUSH 60 mg DAILY [facility] Administration Heparin Sodium (Porcine) 5,000 unit 04/28/19 10:00 05/02/19 11:12 Heparin - SQ Not Given BID [facility] Insulin Aspart 1 vial 04/28/19 07:00 05/02/19 06:57 Novolog Vial Sliding Scale - SQ Not Given ACHS [facility] Protocol Losartan Potassium 100 mg 04/28/19 10:00 05/02/19 11:11 Cozaar - PO 100 mg DAILY [facility] Administration Nitroglycerin 0.4 mg 04/27/19 22:00 05/01/19 21:52 Nitro-Dur Patch - TD 0.4 mg HS [facility] Administration Nitroglycerin 0.4 mg 04/28/19 00:15 04/28/19 05:20 Nitrostat - SL 0.4 mg Q5M PRN Administration CHEST PAIN Oxycodone HCl 5 mg 05/01/19 17:57 05/02/19 02:12 Roxicodone - PO 5 mg Q4H PRN Administration PAIN LEVEL 4 - 6 Pregabalin 25 mg 04/28/19 10:00 05/02/19 11:11 Lyrica - PO 25 mg BID [facility] Administration Home Medications Medication Instructions Recorded Aspirin [ASA -] 81 mg PO HS 09/20/15 Atorvastatin Ca [Lipitor] 80 mg PO HS 09/20/15 Carvedilol 25 mg PO BID 09/20/15 Cholecalciferol (Vitamin D3) 200 unit PO DAILY 09/20/15 [D3-2000] Nitroglycerin Sublingual 0.4 mg SL [id number] PRN #30 tab 10/07/16 [Nitrostat -] Multivit-Min/FA/Lycopen/Lutein 1 each PO DAILY 11/22/17 [Centrum Silver Men Tablet] Nitroglycerin Patch [Nitro-Dur 0.4 mg TD HS 11/22/17 Patch -] Ferrous Sulfate [Iron] 325 mg PO DAILY 07/27/18 Ascorbic Acid [Vitamin C -] 500 mg PO DAILY tablet 09/15/18 Blood Sugar Diagnostic [Glucose 1 each ACHS #30 strip 09/21/18 Test Strip] Duloxetine HCl [Cymbalta] 60 mg PO HS 02/08/19 Losartan Potassium 100 mg PO BID 02/08/19 Pregabalin [Lyrica] 25 mg PO BID 02/08/19 Sitagliptin Phosphate [Januvia] 50 mg PO DAILY 02/08/19 Intake & Output 04/30/19 05/01/19 05/02/19 05/03/19 23:59 23:59 23:59 23:59 Intake Total 171 518 8265 240 Output Total 779 753 6604 1000 Balance 285 484 -7802 -033 Weight 102.058 kg 103.963 kg 104.961 kg 104.496 kg ASSESSMENT AND PLAN: 68 y/o man with h/o chronic systolic and diastolic heart failure, MONICO, CKD, NSTEMi, s/p CABG x 4, testicular cancer s/p resection and chemo, chronic back pain, carotid stenosis s/p CEA, who presented with worsening SOB. he was found to have acute systolic and diastolic CHF exacerbation # Acute systolic and diastolic heart failure: changed lasix IV dose to 2x per day , Nephro on the case, s/p a dose of zaroxylin 5mg . pt is not compliant with Is and Os, with diet as well ( chips and salty food ) continues to eat. breathing significantly improved. pre and post ordered but patient refused also refused nocturnal pulse ox . cont losartan and coreg . as per nephro to discharge the patient on Torsemide 40mg po bid. # CAD s/p CABG and Chronic angina: cont PRN SL Ng and NG patch, continue coreg and Aspirin. #T2DM: cont SSI # HTN: cont losartan ,norvasc, and coreg . # R breast mass: being worked up as out pt # Chronic back pain on Oxycodone continue prn # Hx of depression and back pain on Cymbalta continue Code: DNR/DNI .
[2019-05-02] MEDS ORDERED: METOLAZONE 5 MG TABLET PO ONE (12:00)
[2019-05-02] MEDS ORDERED: PT OWN MED DRAWER 7, Y5N ONE ×2 (13:13→22:26)
--- NOTE | 2019-05-02 14:19 | PN ---
Progress Note, Physician Chief Complaint: less sob. edema worse. has back pain. tele PVC's, History of Present Illness: 68 year old male with a PMH of HTN, DMII, CKD, CAD s/p CABG x4 after nstemi 2015 at [facility], nuclear stress test 09/2016 after admission for chest pain, showed inferior/inferoapical ischemia LVEF 77%, chronic stable angina on NTG patch at home and ntg SL prn, TIA 2000, carotid stenosis s/p CEA 2007, MONICO, bleeding hemorrhoids s/p 2 complicated colonoscopies in the past, chronic cervical and lumbar disc disease, multiple surgeries and chronic pain, current CKD with nephrotic range proteinurea and chronic b/l LE edema. Several past admissions for duiresis. He has refused cardiac interventions including cardiac cath in the past. He previously decided to enter Hospice care.. He was discharged from Hospice after 3 months. He was seen outpatient 03/26/19, recently discharged 04/09/19 with same complaints of SEYMOUR with minimal exertion as well as continued episodes of chest pain mainly at night. He declined to increase his diuretics as he did not want to effect his creatinine. He came to the ER now because he has had worsening of his SOB, mainly at night when lying in bed to the point where he felt he needed to come back in. states that his LE edema is improved since recent hospitalization. states he was changed to Torsemide recently by his PMD but only took it for 2 days prior to coming to the ER. Currently feels better wearing O2. Is now agreeable to IV access and IV diuretics if it will make his sob better. he is drinking ad sergio from the tap and eating salty foods from the vending machines. still refusing HD. - Current Medication List Current Medications: Active Medications Acetaminophen (Tylenol -) 650 mg PO Q6H PRN PRN Reason: PAIN LEVEL 1-5 Last Admin: 05/01/19 03:00 Dose: 650 mg Amlodipine Besylate (Norvasc -) 5 mg PO DAILY [facility] Last Admin: 05/02/19 11:10 Dose: 5 mg Aspirin (Asa -) 81 mg PO HS [facility] Last Admin: 05/01/19 21:51 Dose: 81 mg Atorvastatin Calcium (Lipitor -) 80 mg PO HS [facility] Last Admin: 05/01/19 21:52 Dose: 80 mg Carvedilol (Coreg -) 25 mg PO BID [facility] Last Admin: 05/02/19 11:11 Dose: 25 mg Duloxetine HCl (Cymbalta -) 60 mg PO HS [facility] Last Admin: 05/01/19 21:51 Dose: 60 mg Furosemide (Lasix Injection -) 60 mg IVPUSH DAILY [facility] Last Admin: 05/02/19 11:11 Dose: 60 mg Heparin Sodium (Porcine) (Heparin -) 5,000 unit SQ BID [facility] Last Admin: 05/02/19 11:12 Dose: Not Given Insulin Aspart (Novolog Vial Sliding Scale -) 1 vial SQ [facility]; Protocol Last Admin: 05/02/19 12:05 Dose: Not Given Losartan Potassium (Cozaar -) 100 mg PO DAILY [facility] Last Admin: 05/02/19 11:11 Dose: 100 mg Nitroglycerin (Nitro-Dur Patch -) 0.4 mg TD [facility] Last Admin: 05/01/19 21:52 Dose: 0.4 mg Nitroglycerin (Nitrostat -) 0.4 mg SL Q5M PRN PRN Reason: CHEST PAIN Last Admin: 04/28/19 05:20 Dose: 0.4 mg Oxycodone HCl (Roxicodone -) 5 mg PO Q4H PRN PRN Reason: PAIN LEVEL 4 - 6 Last Admin: 05/02/19 02:12 Dose: 5 mg Pregabalin (Lyrica -) 25 mg PO BID [facility] Last Admin: 05/02/19 11:11 Dose: 25 mg - Objective Vital Signs: Vital Signs Temperature 98.3 F 05/02/19 06:00 Pulse Rate 92 H 05/02/19 11:00 Respiratory Rate 18 05/02/19 10:00 Blood Pressure 166/80 05/02/19 10:00 O2 Sat by Pulse Oximetry (%) 94 L 05/02/19 11:00 Constitutional: Yes: No Distress, Calm Eyes: Yes: EOM Intact HENT: Yes: Normocephalic Neck: Yes: Trachea Midline Cardiovascular: Yes: Regular Rate and Rhythm Respiratory: Yes: CTA Bilaterally Edema: Yes Edema: LLE: 2+, RLE: 2+ Peripheral Pulses WNL: Yes Labs: CBC, BMP 05/01/19 05:25 05/02/19 08:45 INR, PTT INR 1.10 (0.83-1.09) H 04/27/19 05:07 Assessment/Plan 68 year old male with a PMH of HTN, DMII, CKD, CAD s/p CABG x4 after nstemi 2015 at [facility], nuclear stress test 09/2016 after admission for chest pain, showed inferior/inferoapical ischemia LVEF 77%, chronic stable angina on NTG patch at home and ntg SL prn, TIA 2000, carotid stenosis s/p CEA 2007, [place], bleeding hemorrhoids s/p 2 complicated colonoscopies in the past, chronic cervical and lumbar disc disease, multiple surgeries and chronic pain, current CKD with nephrotic range proteinurea and chronic b/l LE edema. Several past admissions for duiresis. He has refused cardiac interventions including cardiac cath in the past. He previously decided to enter Hospice care.. He was discharged from Hospice after 3 months. He was seen outpatient 03/26/19, recently discharged 04/09/19 with same complaints of SEYMOUR with minimal exertion as well as continued episodes of chest pain mainly at night. He declined to increase his diuretics as he did not want to effect his creatinine. He came to the ER now because he has had worsening of his SOB, mainly at night when lying in bed to the point where he felt he needed to come back in. states that his LE edema is improved since recent hospitalization. states he was changed to Torsemide recently by his PMD but only took it for 2 days prior to coming to the ER. Currently feels better wearing O2. Is now agreeable to IV access and IV diuretics if it will make his sob better. SOB-acute on chronic combined systolic and diastolic CHF, ischemic heart disease -symptoms improving with diuresesis and creatinine stable today -in addition to 3rd spacing from low oncotic pressure/low albumin -has been difficult to treat as he refuses any invasive procedures, dialysis, and has CKD that may worsen if aggressive diuresis is used thus he has been reluctant at trials of increased diuretics -pt now amenable to IV diuresis -cont Lasix 60mg IV daily -monitor strict I/Os and daily weights, bun/creat, electrolytes and replete as needed -if not net neg with I/Os in 24 hours and if weight not down then increase Lasix to 60mg IV BID -plan to resume Torsemide on discharge either at current dose or at increased dose, pts will bring the prescription to review his home dose -cont home Coreg, Losartan -discussed with patient the need for fluid and salt restriction. Chronic stable angina -on ntg patch and prn SL NTG at home -cannot take ranexa due to CKD -likely little benefit from addition of Imdur as he is already on nitrates -HTN control and volume control -pt refuses invasive testing such as cardiac cath No further suggestions for therapy. Follow with Dr Olivas as an outpatient.
--- NOTE | 2019-05-02 14:33 | PN ---
Physical Exam: SUBJECTIVE: Patient seen and examined. Pt's moo OBJECTIVE: Vital Signs Period Temp Pulse Resp BP Sys/Guo Pulse Ox Last 24 Hr 98.3 F-99.2 F 65-92 18-18 145-166/61-89 94-99 GENERAL: The patient is awake, alert, and fully oriented, and depressed. HEAD: Normal with no signs of trauma. EYES: PERRL, extraocular movements intact, sclera anicteric, conjunctiva clear. No ptosis. LUNGS: Breath sounds equal, clear to auscultation bilaterally with decreased sounds in the lower lung valadez b/l, no wheezes, no crackles, no accessory muscle use. HEART: Regular rate and rhythm, S1, S2 without murmur, rub or gallop. ABDOMEN: Soft, nontender, nondistended, normoactive bowel sounds, no guarding, no rebound, no hepatosplenomegaly, no masses. EXTREMITIES: 2+ pulses, warm, well-perfused, 3+ edema in the lower extremities but hand edema improved Laboratory Results - last 24 hr 05/01/19 05/01/19 05/02/19 17:20 21:49 06:11 Sodium Potassium Chloride Carbon Dioxide Anion Gap BUN Creatinine Est GFR (CKD-EPI)AfAm Est GFR (CKD-EPI)NonAf POC Glucometer 214 198 145 Random Glucose Calcium 05/02/19 05/02/19 08:45 12:04 Sodium 142 Potassium 4.2 Chloride 106 Carbon Dioxide 30 Anion Gap 6 L BUN 44.2 H Creatinine 3.0 H Est GFR (CKD-EPI)AfAm 23.81 Est GFR (CKD-EPI)NonAf 20.54 POC Glucometer 174 Random Glucose 128 H Calcium 8.5 Active Medications Generic Name Dose Route Start Last Admin Trade Name Freq PRN Reason Stop Dose Admin Acetaminophen 650 mg 04/28/19 13:26 05/01/19 03:00 Tylenol - PO 650 mg Q6H PRN Administration PAIN LEVEL 1-5 Amlodipine Besylate 5 mg 04/28/19 14:30 05/02/19 11:10 Norvasc - PO 5 mg DAILY [facility] Administration Aspirin 81 mg 04/28/19 22:00 05/01/19 21:51 Asa - PO 81 mg HS [facility] Administration Atorvastatin Calcium 80 mg 04/28/19 22:00 05/01/19 21:52 Lipitor - PO 80 mg HS [facility] Administration Carvedilol 25 mg 04/28/19 10:00 05/02/19 11:11 Coreg - PO 25 mg BID [facility] Administration Duloxetine HCl 60 mg 04/27/19 22:00 05/01/19 21:51 Cymbalta - PO 60 mg HS [facility] Administration Furosemide 60 mg 04/28/19 10:00 05/02/19 11:11 Lasix Injection - IVPUSH 60 mg DAILY [facility] Administration Heparin Sodium (Porcine) 5,000 unit 04/28/19 10:00 05/02/19 11:12 Heparin - SQ Not Given BID [facility] Insulin Aspart 1 vial 04/28/19 07:00 05/02/19 12:05 Novolog Vial Sliding Scale - SQ Not Given ACHS [facility] Protocol Losartan Potassium 100 mg 04/28/19 10:00 05/02/19 11:11 Cozaar - PO 100 mg DAILY [facility] Administration Nitroglycerin 0.4 mg 04/27/19 22:00 05/01/19 21:52 Nitro-Dur Patch - TD 0.4 mg HS [facility] Administration Nitroglycerin 0.4 mg 04/28/19 00:15 04/28/19 05:20 Nitrostat - SL 0.4 mg Q5M PRN Administration CHEST PAIN Oxycodone HCl 5 mg 05/01/19 17:57 05/02/19 02:12 Roxicodone - PO 5 mg Q4H PRN Administration PAIN LEVEL 4 - 6 Pregabalin 25 mg 04/28/19 10:00 05/02/19 11:11 Lyrica - PO 25 mg BID [facility] Administration ASSESSMENT/PLAN: 68 y/o man with h/o chronic systolic and diastolic heart failure, MONICO, CKD, NSTEMi, s/p CABG x 4, testicular cancer s/p resection and chemo, chronic back pain, carotid stenosis s/p CEA, and other medical problems who presented with worsening SOB. he was found to have acute CHF exacerbation Acute exacerbation of systolic and diastolic heart failure Pt explained that he feels better today and his leg swelling improved tele with no events continue lasix 60 mg daily weight increased to 104.97 from 103.963 monitor renal function . creatinine increased 3.0 from 2.8. O2 as needed cont losartan and coreg . VILLA Creatinine continues to rise today 3.0 one dose of metalazone 5mg once Nephrology consulted CAD s/p CABG and Chronic angina cont PRN SL Ng and NG patch cont coreg. cont ASA DM cont SSI BG today was at 128 Uncontrolled HTN cont losartan , and coreg . norvasc 5 mg added code: DNR/DNI . Visit type - Emergency Visit Emergency Visit: Yes ED Registration Date: 04/27/19 Care time: The patient presented to the Emergency Department on the above date and was hospitalized for further evaluation of their emergent condition. - New Patient This patient is new to me today: No - Critical Care Critical Care patient: No - Discharge Referral Referred to [facility] Med P.C[facility] No ATTENDING PHYSICIAN STATEMENT I saw and evaluated the patient. I reviewed the resident's note and discussed the case with the resident. I agree with the resident's findings and plan as documented. SUBJECTIVE: OBJECTIVE: ASSESSMENT AND PLAN:
--- NOTE | 2019-05-02 15:32 | CONSULT ---
Consult Consult Specialty:: Nephrology Reason for Consultation:: ckd - History of Present Illness Chief Complaint: pt says that he needs his pain pills History of Present Illness: Pt is a 68 year old male with pmhx of htn, dm, cad, ckd, cabg, and proteinuria who initially presents with lower ext edema. I was called to evaluate him for CKD and fluid overload. He says that his breathing is comfortable. He has been on hospice care at home and does not want any aggressive therapy. He is known to me from previous admissions. He is concerned that higher doses of diuretics may worsen his renal failure. He was recently started on torsemide as outpt. He is currently getting lasix. His main concern is that he wants the oxycodone at home. Him and his want to pursue comfort care. 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, Other (possible restless leg syndrome) Cardio/Vascular: Yes: CAD, CHF, HTN, Hyperlipdemia, Other (Cardiac arrest 2000 carotid artery stenosis) Pulmonary: Yes: Other (PNA after spinal surgery 2000) Gastrointestinal: Yes: Irritable Bowel Disease Renal/: Yes: Renal Inusuff, Other (testicular cancer) Psych: Yes: Depression Musculoskeletal: Yes: Chronic low back pain, Osteoarthritis, Other (sciatica) Rheumatology: Yes: Gout Endocrine: Yes: Diabetes Mellitus - Past Surgical History Past Surgical History: Yes: CABG, Cholecystectomy (1997) - Alcohol/Substance Use Hx Alcohol Use: No History of Substance Use: reports: None - Smoking History Smoking history: Never smoked Have you smoked in the past 12 months: No Aproximately how many cigarettes per day: 0 If you are a former smoker, when did you quit?: 50 years ago - Social History ADL: Independent History of Recent Travel: No Home Medications - Allergies Allergies/Adverse Reactions: Allergies Allergy/AdvReac Type Severity Reaction Status Date / Time turkey Allergy Intermediate Vomiting Verified 04/27/19 03:40 [id number]-tryptophan Allergy diarrhea, Verified 04/27/19 03:40 (oxitriptan) vomiting aspartame Allergy headache Verified 04/27/19 03:40 banana Allergy Verified 04/27/19 03:40 Penicillins Allergy Rash Verified 04/27/19 03:40 sumatriptan [From Imitrex] Allergy Verified 04/27/19 03:40 sumatriptan succinate Allergy Verified 04/27/19 03:40 [From Imitrex] - Home Medications Home Medications: Ambulatory Orders Aspirin [ASA -] 81 mg PO HS 09/20/15 Atorvastatin Ca [Lipitor] 80 mg PO HS 09/20/15 Carvedilol 25 mg PO BID 09/20/15 Cholecalciferol (Vitamin D3) [D3-2000] 200 unit PO DAILY 09/20/15 Nitroglycerin Sublingual [Nitrostat -] 0.4 mg SL [id number] PRN #30 tab 10/07/16 Multivit-Min/FA/Lycopen/Lutein [Centrum Silver Men Tablet] 1 each PO DAILY 11/22 Nitroglycerin Patch [Nitro-Dur Patch -] 0.4 mg TD HS 11/22/17 Ferrous Sulfate [Iron] 325 mg PO DAILY 07/27/18 Ascorbic Acid [Vitamin C -] 500 mg PO DAILY tablet 09/15/18 Blood Sugar Diagnostic [Glucose Test Strip] 1 each ACHS #30 strip 09/21/18 Duloxetine HCl [Cymbalta] 60 mg PO HS 02/08/19 Losartan Potassium 100 mg PO BID 02/08/19 Pregabalin [Lyrica] 25 mg PO BID 02/08/19 Sitagliptin Phosphate [Januvia] 50 mg PO DAILY 02/08/19 Family Disease History - Family Disease History Family Disease History: Diabetes: Mother ( (80s) ), Heart Disease: Father ( (90s)), Other: Sister (alive (69) thyroid disease) Review of Systems - Review of Systems Constitutional: reports: Malaise Eyes: reports: No Symptoms HENT: reports: No Symptoms Neck: reports: No Symptoms Cardiovascular: reports: Edema, Shortness of Breath Respiratory: reports: SOB on Exertion Genitourinary: reports: No Symptoms Musculoskeletal: reports: Back Pain, Joint Pain Integumentary: reports: No Symptoms Endocrine: reports: No Symptoms Psychiatric: reports: No Symptoms Physical Exam Vital Signs: Vital Signs Temperature 97.9 F 05/02/19 14:08 Pulse Rate 68 05/02/19 14:08 Respiratory Rate 18 05/02/19 14:08 Blood Pressure 155/66 05/02/19 14:08 O2 Sat by Pulse Oximetry (%) 94 L 05/02/19 11:00 Constitutional: Yes: Calm Eyes: Yes: Conjunctiva Clear HENT: Yes: Atraumatic Neck: Yes: Supple Cardiovascular: Yes: S1, S2 Respiratory: Yes: CTA Bilaterally Gastrointestinal: Yes: Soft, Abdomen, Obese Renal/: Yes: WNL Musculoskeletal: Yes: Back Pain Edema: Yes Edema: LLE: 3+, RLE: 3+ Neurological: Yes: Oriented Psychiatric: Yes: Oriented Labs: CBC, BMP 05/01/19 05:25 05/02/19 08:45 Imaging - Results Ultrasound: Report Reviewed Problem List - Problems (1) CKD (chronic kidney disease) Code(s): N18.9 - CHRONIC KIDNEY DISEASE, UNSPECIFIED (2) Congestive heart failure Code(s): I50.9 - HEART FAILURE, UNSPECIFIED Qualifiers: Heart failure type: unspecified Heart failure chronicity: unspecified Qualified Code(s): I50.9 - Heart failure, unspecified (3) Diabetes Code(s): E11.9 - TYPE 2 DIABETES MELLITUS WITHOUT COMPLICATIONS Qualifiers: 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 type: type 2 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 terminal supervisor insulin use: with long-term use 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 complication status: with kidney complications 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 complication detail: with chronic kidney disease Chronic kidney disease stage: stage 4 (severe) Qualified Code(s): E11.22 - Type 2 diabetes mellitus with diabetic chronic kidney disease; N18.4 - Chronic kidney disease, stage 4 (severe); Z79.4 - assisted (current) use of insulin (4) HTN (hypertension) Code(s): I10 - ESSENTIAL (PRIMARY) HYPERTENSION Qualifiers: Hypertension type: essential hypertension Qualified Code(s): I10 - Essential (primary) hypertension (5) Obesity Code(s): E66.9 - OBESITY, UNSPECIFIED Qualifiers: Obesity type: due to excess calories Assessment/Plan Current Medications Generic Name Dose Route Start Last Admin Trade Name Freq PRN Reason Stop Dose Admin Acetaminophen 650 mg 04/28/19 13:26 05/01/19 03:00 Tylenol - PO 650 mg Q6H PRN Administration PAIN LEVEL 1-5 Amlodipine Besylate 5 mg 04/28/19 14:30 05/02/19 11:10 Norvasc - PO 5 mg DAILY [facility] Administration Aspirin 81 mg 04/28/19 22:00 05/01/19 21:51 Asa - PO 81 mg HS [facility] Administration Atorvastatin Calcium 80 mg 04/28/19 22:00 05/01/19 21:52 Lipitor - PO 80 mg HS [facility] Administration Carvedilol 25 mg 04/28/19 10:00 05/02/19 11:11 Coreg - PO 25 mg BID [facility] Administration Duloxetine HCl 60 mg 04/27/19 22:00 05/01/19 21:51 Cymbalta - PO 60 mg HS [facility] Administration Furosemide 60 mg 04/28/19 10:00 05/02/19 11:11 Lasix Injection - IVPUSH 60 mg DAILY [facility] Administration Heparin Sodium (Porcine) 5,000 unit 04/28/19 10:00 05/02/19 11:12 Heparin - SQ Not Given BID [facility] Insulin Aspart 1 vial 04/28/19 07:00 05/02/19 12:05 Novolog Vial Sliding Scale - SQ Not Given ACHS [facility] Protocol Losartan Potassium 100 mg 04/28/19 10:00 05/02/19 11:11 Cozaar - PO 100 mg DAILY [facility] Administration Nitroglycerin 0.4 mg 04/27/19 22:00 05/01/19 21:52 Nitro-Dur Patch - TD 0.4 mg HS [facility] Administration Nitroglycerin 0.4 mg 04/28/19 00:15 04/28/19 05:20 Nitrostat - SL 0.4 mg Q5M PRN Administration CHEST PAIN Oxycodone HCl 5 mg 05/01/19 17:57 05/02/19 02:12 Roxicodone - PO 5 mg Q4H PRN Administration PAIN LEVEL 4 - 6 Pregabalin 25 mg 04/28/19 10:00 05/02/19 11:11 Lyrica - PO 25 mg BID [facility] Administration Impression 1. fluid overload 2. PNA 3. ckd 4. chronic pain 5. cad 6. dm Plan - cont with lasix - pt does not want aggressive therapy - he remain volume overloaded - can increase dose of lasix to diurese him - he does not want to be on a restricted diet either - he and his have made clear instructions that he does not want HD
[2019-05-02] MEDS: DULoxetine HCL 30 MG CAPSULE.DR PO SCH (22:27)
[2019-05-02] MEDS: ASPIRIN 81 MG CHEWABLE TABLETS PO SCH (22:27)
[2019-05-02] MEDS: ATORVASTATIN CA 80 MG TABLET (FP) PO SCH (22:27)
[2019-05-02] MEDS: NITROGLYCERIN 0.4 MG/HOUR TD PATCH TD SCH (22:28)
[2019-05-03] MEDS: oxyCODONE HCL 5 MG TABLET PO PRN ×2 (04:18→12:55)
[2019-05-03] MEDS: INSULIN SLIDING SCALE (NOVOLOG) 1 VIAL SQ SCH ×3 (06:18→17:05)
[2019-05-03] MEDS: FUROSEMIDE 40 MG/4 ML INJECTABLE VIAL IVPUSH SCH ×2 (06:18→13:31)
[2019-05-03 07:24] LABS: BASO % 0.7 % (0-2.0); EOS % 5.6 % (0-4.5); HEMATOCRIT 28.3 % (35.4-49); HEMOGLOBIN 9.5 GM/dL (11.7-16.9); LYMPH % 20.2 % (8-40); MCH 30.1 pg (25.7-33.7); MCHC 33.8 g/dl (32.0-35.9); MEAN CELL VOLUME 89.1 fl (80-96); MEAN PLT VOLUME 8.6 fl (7.5-11.1); MONO % 9.8 % (3.8-10.2); NEUT % 63.7 % (42.8-82.8); PLATELET COUNT 231 K/MM3 (134-434); RBC 3.17 M/mm3 (4.00-5.60); RDW 14.6 % (11.9-15.9); WHITE BLOOD COUNT 9.5 K/mm3 (4.0-10.0)
[2019-05-03 08:46] LABS: CALCIUM 8.6 mg/dL (8.5-10.1); CREATININE 3.1 mg/dL (0.55-1.3); POTASSIUM 4.2 mmol/L (3.5-5.1)
[2019-05-03] MEDS ORDERED: METOLAZONE 5 MG TABLET PO ONE (10:49)
[2019-05-03] MEDS: HEPARIN NA (PORCINE) 5,000 UNITS/ML 1ML VIAL SQ SCH (10:50)
[2019-05-03] MEDS: LOSARTAN POTASSIUM 50 MG TABLET (FP) PO SCH (10:51)
[2019-05-03] MEDS: PREGABALIN 25 MG CAPSULE PO SCH (10:51)
[2019-05-03] MEDS: CARVEDILOL 25 MG TABLET (FP) PO SCH (10:52)
[2019-05-03] MEDS: amLODIPine BESYLATE 5 MG TABLET (FP) PO SCH (10:52)
--- NOTE | 2019-05-03 12:30 | PN ---
Progress Note, Physician History of Present Illness: Pt seen and examined at bedside. He is awake and alert. he denies shortness of breath. - Current Medication List Current Medications: Active Medications Acetaminophen (Tylenol -) 650 mg PO Q6H PRN PRN Reason: PAIN LEVEL 1-5 Last Admin: 05/01/19 03:00 Dose: 650 mg Amlodipine Besylate (Norvasc -) 5 mg PO DAILY [facility] Last Admin: 05/03/19 10:52 Dose: 5 mg Aspirin (Asa -) 81 mg PO HS [facility] Last Admin: 05/02/19 22:27 Dose: 81 mg Atorvastatin Calcium (Lipitor -) 80 mg PO HS [facility] Last Admin: 05/02/19 22:27 Dose: 80 mg Carvedilol (Coreg -) 25 mg PO BID [facility] Last Admin: 05/03/19 10:52 Dose: 25 mg Duloxetine HCl (Cymbalta -) 60 mg PO HS [facility] Last Admin: 05/02/19 22:27 Dose: 60 mg Furosemide (Lasix Injection -) 60 mg IVPUSH BID@0600,1400 [facility] Last Admin: 05/03/19 06:18 Dose: 60 mg Heparin Sodium (Porcine) (Heparin -) 5,000 unit SQ BID [facility] Last Admin: 05/03/19 10:50 Dose: Not Given Insulin Aspart (Novolog Vial Sliding Scale -) 1 vial SQ [facility]; Protocol Last Admin: 05/03/19 11:43 Dose: 2 units Losartan Potassium (Cozaar -) 100 mg PO DAILY [facility] Last Admin: 05/03/19 10:51 Dose: 100 mg Nitroglycerin (Nitro-Dur Patch -) 0.4 mg TD [facility] Last Admin: 05/02/19 22:28 Dose: 0.4 mg Nitroglycerin (Nitrostat -) 0.4 mg SL Q5M PRN PRN Reason: CHEST PAIN Last Admin: 04/28/19 05:20 Dose: 0.4 mg Oxycodone HCl (Roxicodone -) 5 mg PO Q4H PRN PRN Reason: PAIN LEVEL 4 - 6 Last Admin: 05/03/19 04:18 Dose: 5 mg Pregabalin (Lyrica -) 25 mg PO BID [facility] Last Admin: 05/03/19 10:51 Dose: 25 mg - Objective Vital Signs: Vital Signs Temperature 98.2 F 05/03/19 09:15 Pulse Rate 70 05/03/19 09:15 Respiratory Rate 16 05/03/19 09:15 Blood Pressure 162/72 05/03/19 09:15 O2 Sat by Pulse Oximetry (%) 95 05/03/19 10:00 Constitutional: Yes: Calm Cardiovascular: Yes: S1, S2 Respiratory: Yes: CTA Bilaterally Gastrointestinal: Yes: Normal Bowel Sounds, Soft Genitourinary: Yes: WNL Musculoskeletal: Yes: WNL Edema: LLE: 2+, RLE: 2+ Neurological: Yes: Oriented Psychiatric: Yes: Oriented Labs: CBC, BMP 05/03/19 06:50 05/03/19 06:50 INR, PTT INR 1.10 (0.83-1.09) H 04/27/19 05:07 Problem List - Problems (1) CKD (chronic kidney disease) Code(s): N18.9 - CHRONIC KIDNEY DISEASE, UNSPECIFIED (2) Congestive heart failure Code(s): I50.9 - HEART FAILURE, UNSPECIFIED Qualifiers: Heart failure type: unspecified Heart failure chronicity: unspecified Qualified Code(s): I50.9 - Heart failure, unspecified (3) Diabetes Code(s): E11.9 - TYPE 2 DIABETES MELLITUS WITHOUT COMPLICATIONS Qualifiers: 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 type: type 2 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 meterman insulin use: with correction use 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 complication status: with kidney complications 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 complication detail: with chronic kidney disease Chronic kidney disease stage: stage 4 (severe) Qualified Code(s): E11.22 - Type 2 diabetes mellitus with diabetic chronic kidney disease; N18.4 - Chronic kidney disease, stage 4 (severe); Z79.4 - longterm (current) use of insulin (4) HTN (hypertension) Code(s): I10 - ESSENTIAL (PRIMARY) HYPERTENSION Qualifiers: Hypertension type: essential hypertension Qualified Code(s): I10 - Essential (primary) hypertension (5) Obesity Code(s): E66.9 - OBESITY, UNSPECIFIED Qualifiers: Obesity type: due to excess calories Assessment/Plan Current Medications Generic Name Dose Route Start Last Admin Trade Name Freq PRN Reason Stop Dose Admin Acetaminophen 650 mg 04/28/19 13:26 05/01/19 03:00 Tylenol - PO 650 mg Q6H PRN Administration PAIN LEVEL 1-5 Amlodipine Besylate 5 mg 04/28/19 14:30 05/03/19 10:52 Norvasc - PO 5 mg DAILY [facility] Administration Aspirin 81 mg 04/28/19 22:00 05/02/19 22:27 Asa - PO 81 mg HS [facility] Administration Atorvastatin Calcium 80 mg 04/28/19 22:00 05/02/19 22:27 Lipitor - PO 80 mg HS [facility] Administration Carvedilol 25 mg 04/28/19 10:00 05/03/19 10:52 Coreg - PO 25 mg BID [facility] Administration Duloxetine HCl 60 mg 04/27/19 22:00 05/02/19 22:27 Cymbalta - PO 60 mg HS [facility] Administration Furosemide 60 mg 05/02/19 15:45 05/03/19 06:18 Lasix Injection - IVPUSH 60 mg BID@0600,1400 [facility] Administration Heparin Sodium (Porcine) 5,000 unit 04/28/19 10:00 05/03/19 10:50 Heparin - SQ Not Given BID [facility] Insulin Aspart 1 vial 04/28/19 07:00 05/03/19 11:43 Novolog Vial Sliding Scale - SQ 2 units ACHS [facility] Administration Protocol Losartan Potassium 100 mg 04/28/19 10:00 05/03/19 10:51 Cozaar - PO 100 mg DAILY [facility] Administration Nitroglycerin 0.4 mg 04/27/19 22:00 05/02/19 22:28 Nitro-Dur Patch - TD 0.4 mg HS [facility] Administration Nitroglycerin 0.4 mg 04/28/19 00:15 04/28/19 05:20 Nitrostat - SL 0.4 mg Q5M PRN Administration CHEST PAIN Oxycodone HCl 5 mg 05/01/19 17:57 05/03/19 04:18 Roxicodone - PO 5 mg Q4H PRN Administration PAIN LEVEL 4 - 6 Pregabalin 25 mg 04/28/19 10:00 05/03/19 10:51 Lyrica - PO 25 mg BID [facility] Administration Impression 1. fluid overload 2. PNA 3. ckd 4. chronic pain 5. cad 6. dm Plan - increase home torsemide to 40 bid as he was not diuresing on 20 bid - pt will follow with his pmd on Monday for his narcotics - pt does not want aggressive therapy - he should also follow with Dr Severino to evaluate renal function and adjust diuretics - pt does not want to be on a 2 gram sodium diet nor does he want a fluid restriction
[2019-05-03] MEDS ORDERED: PT OWN MED DRAWER 7, Y5N ONE (12:49)
[2019-05-03 14:30] VITALS: BP 123/56; PULSE 72; TEMP 98.1
--- NOTE | 2019-05-03 16:21 | DS ---
Physical Exam: SUBJECTIVE: Patient seen and examined OBJECTIVE: Vital Signs Period Temp Pulse Resp BP Sys/Guo Pulse Ox Last 24 Hr 97.6 F-98.2 F 67-74 16-18 123-162/56-78 95-98 PHYSICAL EXAM GENERAL: The patient is awake, alert, and fully oriented. in mild distress. HEAD: Normal with no signs of trauma. EYES: PERRL, extraocular movements intact, sclera anicteric, conjunctiva clear. No ptosis. LUNGS: Breath sounds equal, clear to auscultation bilaterally with decreased sounds in the lower lung valadez b/l, no wheezes, no crackles, no accessory muscle use. HEART: Regular rate and rhythm, S1, S2 without murmur, rub or gallop. ABDOMEN: Soft, nontender, nondistended, normoactive bowel sounds, no guarding, no rebound, no hepatosplenomegaly, no masses. EXTREMITIES: 2+ pulses, warm, well-perfused, 3+ edema in the lower extremities but hand edema improved LABS Laboratory Results - last 24 hr 05/02/19 05/02/19 05/03/19 17:13 22:41 05:57 WBC RBC Hgb Hct MCV MCH MCHC RDW Plt Count MPV Absolute Neuts (auto) Neutrophils % Lymphocytes % Monocytes % Eosinophils % Basophils % Nucleated RBC % Sodium Potassium Chloride Carbon Dioxide Anion Gap BUN Creatinine Est GFR (CKD-EPI)AfAm Est GFR (CKD-EPI)NonAf POC Glucometer 217 265 202 Random Glucose Calcium 05/03/19 05/03/19 05/03/19 06:50 06:50 11:24 WBC 9.5 RBC 3.17 L Hgb 9.5 L Hct 28.3 L MCV 89.1 MCH 30.1 MCHC 33.8 RDW 14.6 Plt Count 231 MPV 8.6 Absolute Neuts (auto) 6.1 Neutrophils % 63.7 Lymphocytes % 20.2 D Monocytes % 9.8 Eosinophils % 5.6 H Basophils % 0.7 Nucleated RBC % 0 Sodium 140 Potassium 4.2 Chloride 104 Carbon Dioxide 25 Anion Gap 10 BUN 48.0 H Creatinine 3.1 H Est GFR (CKD-EPI)AfAm 22.88 Est GFR (CKD-EPI)NonAf 19.74 POC Glucometer 226 Random Glucose 205 H Calcium 8.6 Renal US: Morphologically normal kidneys with no evidence of nephrolithiasis, hydronephrosis or acute pathology. HOSPITAL COURSE: Date of Admission:04/27/19 68 y/o DNR/DNI M with a PMHx of CAD, chronic systolic and diastolic HF, MONICO, CKD , NSTEMI, stable angina s/p CABG x 4, testicular cancer s/p resection and chemotherapy, chronic back pain, carotid stenosis s/p CEA presented here with c/ o worsening SOB mainly when laying in bed at night and was found to have acute on chronic CHF exacerbation in the ED here. We administered Lasix 40 then increased to 60 mg which improved his SOB.The pt reports that he feels better when he is on oxygen as well but has failed to qualify for discharge with home oxygen. Pt refused any invasive or interventional procedures including dialysis. The pt has been poorly compliant with medical care here and in. His creatinine has been steadily increasing secondary to IV diuretics. Pt is instructed to follow up with Dr. Olivas as an outpatient and attempt to restrict fluid and salt intake although pt endorses that he will not restrict his diet. Date of Discharge: 05/03/19 Minutes to complete discharge: 35 Discharge Summary Reason For Visit: ACUTE ON CHRONIC DIASTOLIC CONGESTIVE HEART FAILUR Current Active Problems CKD (chronic kidney disease) (Acute) Congestive heart failure (Acute) Condition: Improved - Instructions Diet, Activity, Other Instructions: You came into the ED because of difficulty breathing and shortness of breath. We gave you a water pills which improved your symptoms.You were seen by a contract graphic designer and a newsperson while you were here. We did a scan of your legs which was negative for any acute pathology. We did an ultrasound of your kidneys that was normal.Your symptoms have improved and you are ready to be discharged home. Medications: We have made some changes to your medications. Please take torsemide 40 mg twice a day. Follow up: Please follow up with your PCP Dr. Camacho on Monday at [address] [place] [address]. Please follow up with Dr. Olivas within one week. Please follow up with Dr. Paulino within one week. If you begin to experience any worsening shortness of breath, chest pain, bleeding, fever please return to the Emergency room immediately Referrals: Malcolm Paulino MD [Staff Physician] - 1 Week Jacob Camacho MD [Primary Care Provider] - 1 Week Oliverio Olivas MD [Staff Physician] - 1 Week Disposition: HOME - Home Medications Comprehensive Discharge Medication List: Ambulatory Orders Aspirin [ASA -] 81 mg PO HS 09/20/15 Atorvastatin Ca [Lipitor] 80 mg PO HS 09/20/15 Carvedilol 25 mg PO BID 09/20/15 Cholecalciferol (Vitamin D3) [D3-2000] 200 unit PO DAILY 09/20/15 Nitroglycerin Sublingual [Nitrostat -] 0.4 mg SL [id number] PRN #30 tab 10/07/16 Multivit-Min/FA/Lycopen/Lutein [Centrum Silver Men Tablet] 1 each PO DAILY 11/22 Nitroglycerin Patch [Nitro-Dur Patch -] 0.4 mg TD HS 11/22/17 Ferrous Sulfate [Iron] 325 mg PO DAILY 07/27/18 Ascorbic Acid [Vitamin C -] 500 mg PO DAILY tablet 09/15/18 Blood Sugar Diagnostic [Glucose Test Strip] 1 each ACHS #30 strip 09/21/18 Duloxetine HCl [Cymbalta] 60 mg PO HS 02/08/19 Losartan Potassium 100 mg PO BID 02/08/19 Pregabalin [Lyrica] 25 mg PO BID 02/08/19 Sitagliptin Phosphate [Januvia] 50 mg PO DAILY 02/08/19 Torsemide [Demadex -] 40 mg PO BID #60 tablet 05/03/19 Problem List - Problems (1) CKD (chronic kidney disease) Code(s): N18.9 - CHRONIC KIDNEY DISEASE, UNSPECIFIED (2) Congestive heart failure Code(s): I50.9 - HEART FAILURE, UNSPECIFIED Qualifiers: Heart failure type: unspecified Heart failure chronicity: unspecified Qualified Code(s): I50.9 - Heart failure, unspecified (3) VILLA (acute kidney injury) Code(s): N17.9 - ACUTE KIDNEY FAILURE, UNSPECIFIED (4) Acute on chronic kidney failure Code(s): N17.9 - ACUTE KIDNEY FAILURE, UNSPECIFIED; N18.9 - CHRONIC KIDNEY DISEASE, UNSPECIFIED Qualifiers: Acute renal failure type: unspecified Chronic kidney disease stage: stage 4 (severe) Qualified Code(s): N17.9 - Acute kidney failure, unspecified; N18.4 - Chronic kidney disease, stage 4 (severe) This patient is new to me today: No Emergency Visit: Yes ED Registration Date: 04/27/19 Care time: The patient presented to the Emergency Department on the above date and was hospitalized for further evaluation of their emergent condition. Critical Care patient: No - Discharge Referral Referred to [facility] No ATTENDING PHYSICIAN STATEMENT I saw and evaluated the patient. I reviewed the resident's note and discussed the case with the resident. I agree with the resident's findings and plan as documented. SUBJECTIVE: OBJECTIVE: ASSESSMENT AND PLAN:
--- NOTE | 2019-05-03 16:33 | PN ---
Teaching Attending Note Name of Resident: Daylin Betts ATTENDING PHYSICIAN STATEMENT I saw and evaluated the patient. I reviewed the resident's note and discussed the case with the resident. I agree with the resident's findings and plan as documented. SUBJECTIVE: Patient is comfortable with no acute distress. wants to go home. OBJECTIVE: Vital Signs Temperature 98.1 F 05/03/19 13:45 Pulse Rate 72 05/03/19 13:45 Respiratory Rate 18 05/03/19 13:45 Blood Pressure 123/56 L 05/03/19 13:45 O2 Sat by Pulse Oximetry (%) 95 05/03/19 10:00 GENERAL: The patient is awake, alert, and fully oriented, in no acute distress. HEAD: Normal with no signs of trauma. EYES: PERRL, extraocular movements intact, sclera anicteric, conjunctiva clear. ENT: Ears normal, oropharynx clear without exudates, moist mucous membranes. NECK: Trachea midline, full range of motion, supple. LUNGS: Breath sounds equal, clear to auscultation bilaterally, no wheezes, no crackles, no accessory muscle use. HEART: Regular rate and rhythm, S1, S2 without murmur, rub or gallop. ABDOMEN: Soft, nontender, nondistended, normoactive bowel sounds, no guarding, no rebound, no hepatosplenomegaly, no masses. EXTREMITIES: 2+ pulses, warm, well-perfused, +3 edema b/l improving NEUROLOGICAL: Cranial nerves II through XII grossly intact. Normal speech, gait not observed. PSYCH: Normal mood, normal affect. SKIN: Warm, dry, normal turgor, no rashes or lesions noted CBCD WBC 9.5 K/mm3 (4.0-10.0) 05/03/19 06:50 RBC 3.17 M/mm3 (4.00-5.60) L 05/03/19 06:50 Hgb 9.5 GM/dL (11.7-16.9) L 05/03/19 06:50 Hct 28.3 % (35.4-49) L 05/03/19 06:50 MCV 89.1 fl (80-96) 05/03/19 06:50 MCHC 33.8 g/dl (32.0-35.9) 05/03/19 06:50 RDW 14.6 % (11.9-15.9) 05/03/19 06:50 Plt Count 231 K/MM3 (134-434) 05/03/19 06:50 MPV 8.6 fl (7.5-11.1) 05/03/19 06:50 CMP Sodium 140 mmol/L (136-145) 05/03/19 06:50 Potassium 4.2 mmol/L (3.5-5.1) 05/03/19 06:50 Chloride 104 mmol/L (98-107) 05/03/19 06:50 Carbon Dioxide 25 mmol/L (21-32) 05/03/19 06:50 Anion Gap 10 MMOL/L (8-16) 05/03/19 06:50 BUN 48.0 mg/dL (7-18) H 05/03/19 06:50 Creatinine 3.1 mg/dL (0.55-1.3) H 05/03/19 06:50 Random Glucose 205 mg/dL (74-106) H 05/03/19 06:50 Calcium 8.6 mg/dL (8.5-10.1) 05/03/19 06:50 Total Bilirubin 0.6 mg/dL (0.2-1) 04/27/19 05:07 AST 14 U/L (15-37) L 04/27/19 05:07 ALT 18 U/L (13-61) 04/27/19 05:07 Alkaline Phosphatase 108 U/L (45-117) 04/27/19 05:07 Total Protein 6.7 g/dl (6.4-8.2) 04/27/19 05:07 Albumin 2.8 g/dl (3.4-5.0) L 04/27/19 05:07 CARDIAC ENZYMES Creatine Kinase 63 U/L (26-308) 04/30/19 01:45 Troponin I < 0.02 ng/ml (0.00-0.05) 04/30/19 01:45 Current Medications Generic Name Dose Route Start Last Admin Trade Name Freq PRN Reason Stop Dose Admin Acetaminophen 650 mg 04/28/19 13:26 05/01/19 03:00 Tylenol - PO 650 mg Q6H PRN Administration PAIN LEVEL 1-5 Amlodipine Besylate 5 mg 04/28/19 14:30 05/03/19 10:52 Norvasc - PO 5 mg DAILY [facility] Administration Aspirin 81 mg 04/28/19 22:00 05/02/19 22:27 Asa - PO 81 mg HS [facility] Administration Atorvastatin Calcium 80 mg 04/28/19 22:00 05/02/19 22:27 Lipitor - PO 80 mg HS [facility] Administration Carvedilol 25 mg 04/28/19 10:00 05/03/19 10:52 Coreg - PO 25 mg BID [facility] Administration Duloxetine HCl 60 mg 04/27/19 22:00 05/02/19 22:27 Cymbalta - PO 60 mg HS [facility] Administration Furosemide 60 mg 05/02/19 15:45 05/03/19 13:31 Lasix Injection - IVPUSH 60 mg BID@0600,1400 [facility] Administration Heparin Sodium (Porcine) 5,000 unit 04/28/19 10:00 05/03/19 10:50 Heparin - SQ Not Given BID [facility] Insulin Aspart 1 vial 04/28/19 07:00 05/03/19 11:43 Novolog Vial Sliding Scale - SQ 2 units ACHS [facility] Administration Protocol Losartan Potassium 100 mg 04/28/19 10:00 05/03/19 10:51 Cozaar - PO 100 mg DAILY [facility] Administration Nitroglycerin 0.4 mg 04/27/19 22:00 05/02/19 22:28 Nitro-Dur Patch - TD 0.4 mg HS [facility] Administration Nitroglycerin 0.4 mg 04/28/19 00:15 04/28/19 05:20 Nitrostat - SL 0.4 mg Q5M PRN Administration CHEST PAIN Oxycodone HCl 5 mg 05/01/19 17:57 05/03/19 12:55 Roxicodone - PO 5 mg Q4H PRN Administration PAIN LEVEL 4 - 6 Pregabalin 25 mg 04/28/19 10:00 05/03/19 10:51 Lyrica - PO 25 mg BID [facility] Administration Home Medications Medication Instructions Recorded Aspirin [ASA -] 81 mg PO HS 09/20/15 Atorvastatin Ca [Lipitor] 80 mg PO HS 09/20/15 Carvedilol 25 mg PO BID 09/20/15 Cholecalciferol (Vitamin D3) 200 unit PO DAILY 09/20/15 [D3-2000] Nitroglycerin Sublingual 0.4 mg SL [id number] PRN #30 tab 10/07/16 [Nitrostat -] Multivit-Min/FA/Lycopen/Lutein 1 each PO DAILY 11/22/17 [Centrum Silver Men Tablet] Nitroglycerin Patch [Nitro-Dur 0.4 mg TD HS 11/22/17 Patch -] Ferrous Sulfate [Iron] 325 mg PO DAILY 07/27/18 Ascorbic Acid [Vitamin C -] 500 mg PO DAILY tablet 09/15/18 Blood Sugar Diagnostic [Glucose 1 each ACHS #30 strip 09/21/18 Test Strip] Duloxetine HCl [Cymbalta] 60 mg PO HS 02/08/19 Losartan Potassium 100 mg PO BID 02/08/19 Pregabalin [Lyrica] 25 mg PO BID 02/08/19 Sitagliptin Phosphate [Januvia] 50 mg PO DAILY 02/08/19 Torsemide [Demadex -] 40 mg PO BID #60 tablet 05/03/19 oxyCODONE HCL [Roxicodone -] 5 mg PO Q6H PRN #12 tablet MDD 4 05/03/19 ASSESSMENT AND PLAN: 68 y/o man with h/o chronic systolic and diastolic heart failure, MONICO, CKD, NSTEMi, s/p CABG x 4, testicular cancer s/p resection and chemo, chronic back pain, carotid stenosis s/p CEA, who presented with worsening SOB. he was found to have acute systolic and diastolic CHF exacerbation # Acute systolic and diastolic heart failure: given another dose of Zaroxylin today , will discharge him on Torsemide 40mg po bid , patient will follow with dr. Malcolm Severino within a week period, will follow with weight control lecturer , discussed with the discahrge plan. continue home meds Coreg and cozzar, s/p IV lasix 60mg bid. patient is comfortable without use of oxygen. will discharge patient home. Also patient will follow up with # CAD s/p CABG and Chronic angina: cont PRN SL Ng and NG patch, continue coreg and Aspirin. # T2DM: continue Januvia # HTN: cont losartan ,norvasc, and coreg . # R breast mass: being worked up as out pt # Severe depression: continue Cymbalta # Chronic back pain: given 3 days of oxycodone , patient will see his primary on Monday for further care. also on Cymbalta which helps his pain and depression Code: DNR/DNI .
== END 2019-05-03 18:29 | disposition home or self-care (01) | DRG 291 ==
LOC: JER 02:55 → JERBED 06:21 → J5S 15:37 → J4S 21:06
PROVIDERS: ADMIT Internal Medicine; ATTEND Internal Medicine
DX: I13.0 Hypertensive heart and chronic kidney disease with heart failure and stage 1 through stage 4 chronic kidney disease, or unspecified chronic kidney disease (principal); I50.41 Acute combined systolic (congestive) and diastolic (congestive) heart failure; N18.4 Chronic kidney disease, stage 4 (severe); N17.9 Acute kidney failure, unspecified; G43.809 Other migraine, not intractable, without status migrainosus; Z66 Do not resuscitate; K21.9 Gastro-esophageal reflux disease without esophagitis; K63.5 Polyp of colon; K29.70 Gastritis, unspecified, without bleeding; I10 Essential (primary) hypertension; E78.00 Pure hypercholesterolemia, unspecified; I25.10 Atherosclerotic heart disease of native coronary artery without angina pectoris; G89.29 Other chronic pain; G25.81 Restless legs syndrome; K58.9 Irritable bowel syndrome, unspecified; M54.5 Low back pain; F32.9 Major depressive disorder, single episode, unspecified; M10.9 Gout, unspecified; M54.30 Sciatica, unspecified side; I99.8 Other disorder of circulatory system; I65.29 Occlusion and stenosis of unspecified carotid artery; I45.10 Unspecified right bundle-branch block; N63.0 Unspecified lump in unspecified breast; E11.22 Type 2 diabetes mellitus with diabetic chronic kidney disease; Z95.1 Presence of aortocoronary bypass graft; Z86.73 Personal history of transient ischemic attack (TIA), and cerebral infarction without residual deficits; Z85.47 Personal history of malignant neoplasm of testis
CPT/HCPCS: 36415; 71045-TC-FY; 76775-TC; 80048; 80053; 81003; 82550; 82962; 83605; 83735; 83880; 84100; 84484; 85025; 85027; 85610; 85730; 87086; 93005; 93010; 93970-TC; 93971; 93971-TC; 94761; 99285-25; J1644

== ENCOUNTER 2019-05-20 05:43 | Emergency (ER) | payer BC, OTHER ==
[2019-05-20 05:50] VITALS: BP 175/81; PULSE 81; TEMP 98.1; BMI 34.4
[2019-05-20] MEDS ORDERED: FENTANYL PATCH WASTE MC PRN (05:52)
[2019-05-20] MEDS ORDERED: fentaNYL 12mcg/hr PATCH.TD72 TD SCH (06:00)
--- NOTE | 2019-05-20 06:17 | PDOC ---
Attending Attestation - Resident Resident Name: Renard Vera - ED Attending Attestation I have performed the following: I have examined & evaluated the patient, The case was reviewed & discussed with the resident, I agree w/resident's findings & plan - HPI HPI: 05/20/19 06:15 Pt has chronic pain; he has renal insufficiency and pains all over. Pt refuses med rx for kidneys; doesn't want dialysis. wants pain meds. - Physicial Exam PE: 05/20/19 06:16 Agree with resident exam - Medical Decision Making 05/20/19 06:16 Pt will be given a 12 mcg fentanyl patch Home with a 30 day supply (10 patches) 05/20/19 06:56 Signed out to the day team
--- NOTE | 2019-05-20 07:17 | PDOC ---
*Physical Exam - Vital Signs Last Vital Signs Temp Pulse Resp BP Pulse Ox 98.1 F 81 20 175/81 H 98 05/20/19 05:47 05/20/19 05:47 05/20/19 05:47 05/20/19 05:47 05/20/19 05:47 Medical Decision Making - Medical Decision Making 05/20/19 07:16 Signout from night team Naty Carolina is a 68 y/o M with PMHx chronic pain, CKD not on dialysis, testicular CA in remission, inferior heart defect, DM, migraine headaches presenting with L wrist, R shoulder pain d/t chronic pain. Neurovascular intact. Given fentanyl patch, 30 oxycodone for pain. Pt took off fentanyl patch d/t hand burning sensation. Pt wants to go home to take oxycodone prescription which works best for pain. D/c home w instructions to see PCP, pain Discharge - Discharge Information Problems reviewed: Yes Clinical Impression/Diagnosis: Wrist pain, left Chronic pain Qualifiers: Chronic pain type: chronic pain syndrome Qualified Code(s): G89.4 - Chronic pain syndrome Condition: Stable Disposition: HOME - Admission No - Additional Discharge Information Prescriptions: FENTANYL 12mcg PATCH [DURAGESIC 12mcg PATCH -] 1 each TD Q72H #10 patch MDD 1 - Follow up/Referral - Patient Discharge Instructions Patient Printed Discharge Instructions: DI for Chronic Pain -- Adult Additional Instructions: You were seen for left wrist and right shoulder pain. You were given medication for your pain. Please follow up with your primary care doctor and pain doctor to better manage your pain. Take your prescribed fentanyl patch as directed. Come back to the ED if you have chest pain, trouble breathing, or lose consciousness. - Post Discharge Activity
[2019-05-20] MEDS ORDERED: oxyCODONE HCL 5 MG TABLET PO ONE (07:19)
--- NOTE | 2019-05-20 07:36 | PDOC ---
History of Present Illness - General Chief Complaint: Pain Stated Complaint: HAND AND LEFT ARM PROBLEN Time Seen by Provider: 05/20/19 05:55 History Source: Patient, Spouse - History of Present Illness Initial Comments: 05/20/19 07:35 Mr. Carolina is a 68 y/o M with hx CKD not on dialysis, inferior cardiac wall defect p/w L hand, wrist pain, pain in his R shoulder to R elbow, not relieved by home oxycontin prescribed for MSK pain secondary to electrolyte abnormalities resulting from the CKD. He reports that the pain began immediately after his last discharge from the hospital and continued to worsen until tonight when it was not relieved by his oxycontin. He rates the pain a 10/ 10 in the bilateral upper extremities, shooting, non-radiating. He reports that the swelling in his lower extremities has continued to progress (as a sequelae of his CKD without dialysis) and that they are at their baseline degree of tenderness. He reports that he will never consent to dialysis, and is in the process of entering hospice care through his PCP. Past History - Past Medical History Allergies/Adverse Reactions: Allergies Allergy/AdvReac Type Severity Reaction Status Date / Time turkey Allergy Intermediate Vomiting Verified 05/20/19 05:50 3-rjupglw-V-tryptophan Allergy diarrhea, Verified 05/20/19 05:50 (oxitriptan) vomiting aspartame Allergy headache Verified 05/20/19 05:50 banana Allergy Verified 05/20/19 05:50 Penicillins Allergy Rash Verified 05/20/19 05:50 sumatriptan [From Imitrex] Allergy Verified 05/20/19 05:50 sumatriptan succinate Allergy Verified 05/20/19 05:50 [From Imitrex] Home Medications: Ambulatory Orders Aspirin [ASA -] 81 mg PO HS 09/20/15 Atorvastatin Ca [Lipitor] 80 mg PO HS 09/20/15 Carvedilol 25 mg PO BID 09/20/15 Cholecalciferol (Vitamin D3) [D3-2000] 200 unit PO DAILY 09/20/15 Nitroglycerin Sublingual [Nitrostat -] 0.4 mg SL [id number] PRN #30 tab 10/07/16 Multivit-Min/FA/Lycopen/Lutein [Centrum Silver Men Tablet] 1 each PO DAILY 11/22 Nitroglycerin Patch [Nitro-Dur Patch -] 0.4 mg TD HS 11/22/17 Ferrous Sulfate [Iron] 325 mg PO DAILY 07/27/18 Ascorbic Acid [Vitamin C -] 500 mg PO DAILY tablet 09/15/18 Blood Sugar Diagnostic [Glucose Test Strip] 1 each ACHS #30 strip 09/21/18 Duloxetine HCl [Cymbalta] 60 mg PO HS 02/08/19 Losartan Potassium 100 mg PO BID 02/08/19 Pregabalin [Lyrica] 25 mg PO BID 02/08/19 Sitagliptin Phosphate [Januvia] 50 mg PO DAILY 02/08/19 Torsemide [Demadex -] 40 mg PO BID #60 tablet 05/03/19 oxyCODONE HCL [Roxicodone -] 5 mg PO Q6H PRN #12 tablet MDD 4 05/03/19 FENTANYL 12mcg PATCH [DURAGESIC 12mcg PATCH -] 1 each TD Q72H #10 patch MDD 1 Anemia: No Asthma: No Cancer: Yes (TESTICULAR ca with lymph node dissection) Cardiac Disorders: Yes ([place] 2014) CVA: Yes (TIA 05/2011) COPD: No CHF: Yes Dementia: No Diabetes: Yes GI Disorders: Yes (GASTRITIS, SPASTIC COLON, GERD; COLON POLYPS) Disorders: Yes (kidney failure) HTN: Yes Hypercholesterolemia: Yes Kidney Stones: Yes Liver Disease: No Seizures: No Thyroid Disease: No - Surgical History Abdominal Surgery: Yes Appendectomy: No Cardiac Surgery: Yes (quad bypass 2014) Cholecystectomy: Yes Lung Surgery: No Neurologic Surgery: Yes (HERNIATED DISC; BRAIN SURGERY INFANT) Orthopedic Surgery: Yes (KNEE ARTHROSCOPY R/L) - Immunization History Td Vaccination: Yes TDAP Vaccination: Yes Immunization Up to Date: Yes - Psycho Social/Smoking Cessation Hx Smoking Status: No Smoking History: Unknown if ever smoked Have you smoked in the past 12 months: No Number of Cigarettes Smoked Daily: 0 If you are a former smoker, when did you quit?: 50 years ago Cigars Per Day: 0 Hx Alcohol Use: No Drug/Substance Use Hx: No Substance Use Type: None Hx Substance Use Treatment: No Review of Systems - Review of Systems Able to Perform ROS?: Yes Comments:: 05/20/19 20:50 ROS: GENERAL/CONSTITUTIONAL: No fever or chills. No weakness. HEAD, EYES, EARS, NOSE AND THROAT: No change in vision. No ear pain or discharge. No sore throat. CARDIOVASCULAR: No chest pain or shortness of breath RESPIRATORY: No cough, wheezing, or hemoptysis. GASTROINTESTINAL: No nausea, vomiting, diarrhea or constipation. GENITOURINARY: No dysuria, frequency, or change in urination. MUSCULOSKELETAL: R shoulder to R elbow pain, L hand pain. Bilateral LE swelling and pain, at baseline. No other joint or muscle swelling or pain. No neck or back pain. SKIN: No rash NEUROLOGIC: No headache, vertigo, loss of consciousness, or change in strength/ sensation. ENDOCRINE: No increased thirst. No abnormal weight change HEMATOLOGIC/LYMPHATIC: No anemia, easy bleeding, or history of blood clots. ALLERGIC/IMMUNOLOGIC: No hives or skin allergy. *Physical Exam - Vital Signs Last Vital Signs Temp Pulse Resp BP Pulse Ox 98.1 F 81 20 175/81 H 98 05/20/19 05:47 05/20/19 05:47 05/20/19 05:47 05/20/19 05:47 05/20/19 05:47 - Physical Exam Comments: 05/20/19 20:52 PE: GENERAL: Awake, alert, and fully oriented, moderate distress HEAD: No signs of trauma, normocephalic, atraumatic EYES: PERRLA, EOMI, sclera anicteric, conjunctiva clear ENT: Auricles normal inspection, hearing grossly normal, nares patent, oropharynx clear without exudates. Moist mucosa NECK: Normal ROM, supple, no lymphadenopathy, JVD, or masses LUNGS: No distress, speaks full sentences, clear to auscultation bilaterally HEART: Regular rate and rhythm, normal S1 and S2, no murmurs, rubs or gallops, peripheral pulses normal and equal bilaterally. ABDOMEN: Soft, nontender, normoactive bowel sounds. No guarding, no rebound. No masses EXTREMITIES : 3+ bilateral LE edema, exquisite tenderness to palpation of bilateral LEs. Tenderness of R shoulder, ROM limited by pain. R wrist/hand tenderness. Chronic vascular changes of bilateral LE SKIN: Warm, Dry, normal turgor, no rashes or lesions noted except as described above Medical Decision Making - Medical Decision Making 05/20/19 20:54 68M with CKD refusing dialysis, cognizant of prognosis without dialysis and entering hospice care through PCP, p/w acute bilateral upper extremity pain and tenderness. Plan: Fentanyl patches Pain control Dispo: Home --- Case signed out to Dr. Conteh, day team during shift change. Discharge - Discharge Information Problems reviewed: Yes Clinical Impression/Diagnosis: Wrist pain, left Chronic pain Qualifiers: Chronic pain type: chronic pain syndrome Qualified Code(s): G89.4 - Chronic pain syndrome Condition: Stable Disposition: HOME - Admission No - Additional Discharge Information Prescriptions: FENTANYL 12mcg PATCH [DURAGESIC 12mcg PATCH -] 1 each TD Q72H #10 patch MDD 1 - Follow up/Referral - Patient Discharge Instructions Patient Printed Discharge Instructions: DI for Chronic Pain -- Adult Additional Instructions: You were seen for left wrist and right shoulder pain. You were given medication for your pain. Please follow up with your primary care doctor and pain doctor to better manage your pain. Take your prescribed fentanyl patch as directed. Come back to the ED if you have chest pain, trouble breathing, or lose consciousness. - Post Discharge Activity
[2019-05-20] MEDS ORDERED: oxyCODONE HCL 5 MG TABLET ONE (07:58)
== END 2019-05-20 08:14 | disposition home or self-care (01) ==
LOC: JER 05:43
DX: G89.4 Chronic pain syndrome (principal); I25.10 Atherosclerotic heart disease of native coronary artery without angina pectoris; I13.0 Hypertensive heart and chronic kidney disease with heart failure and stage 1 through stage 4 chronic kidney disease, or unspecified chronic kidney disease; N18.4 Chronic kidney disease, stage 4 (severe); I50.89 Other heart failure; Z95.1 Presence of aortocoronary bypass graft; E11.9 Type 2 diabetes mellitus without complications; Z79.84 Long term (current) use of oral hypoglycemic drugs; Z87.19 Personal history of other diseases of the digestive system; Z85.47 Personal history of malignant neoplasm of testis; E78.00 Pure hypercholesterolemia, unspecified; Z87.442 Personal history of urinary calculi; Z86.73 Personal history of transient ischemic attack (TIA), and cerebral infarction without residual deficits; Z91.018 Allergy to other foods; Z88.8 Allergy status to other drugs, medicaments and biological substances
CPT/HCPCS: 99281-25

== ENCOUNTER 2020-03-05 18:48 | Inpatient (IN) | payer BC, OTHER ==
--- NOTE | 2020-03-05 18:59 | PDOC ---
Rapid Medical Evaluation Time Seen by Provider: 03/05/20 18:56 Medical Evaluation: Allergies Allergy/AdvReac Type Severity Reaction Status Date / Time turkey Allergy Intermediate Vomiting Verified 05/20/19 05:50 0-[id number]-V-tryptophan Allergy diarrhea, Verified 05/20/19 05:50 (oxitriptan) vomiting aspartame Allergy headache Verified 05/20/19 05:50 banana Allergy Verified 05/20/19 05:50 Penicillins Allergy Rash Verified 05/20/19 05:50 sumatriptan [From Imitrex] Allergy Verified 05/20/19 05:50 sumatriptan succinate Allergy Verified 05/20/19 05:50 [From Imitrex] 03/05/20 18:56 I have performed a brief in-person evaluation of this patient. CC: sent by PMD for elevated K+ PE: RR-28. pale. RRR. Orders: EKG, labs, urine Patient will proceed to ED for further evaluation. 03/05/20 18:59 Discharge Disposition - Diagnosis Hyperkalemia - Referrals Referrals: German Kurtz MD [Primary Care Provider] - - Patient Instructions - Post Discharge Activity
--- NOTE | 2020-03-05 20:11 | PDOC ---
History of Present Illness - General Chief Complaint: Abnormal Lab Results (Outside) Stated Complaint: REF. BY DOC. HIGH POTASSIUM Time Seen by Provider: 03/05/20 18:56 - History of Present Illness Initial Comments: 03/05/20 20:01 69yo M with an extensive PMH, including CAD (s/p CABG), CKD (not on dialysis), DM, HFpEF, testicular cancer (in remission), and chronic pain who was sent to the ED by his physician for a K of 6.1 and an increased Cr from baseline. Patient has CKD but not interested in ever pursuing dialysis and is not compliant with diet. He states he went to his doctor for increased lethargy and was found to have high K. He endorses increased muscle weakness and cramping, but denies all other symptoms except for chronic complains. No recent changes in health except for cellulitis on b/l LE R>L for 1.5 months. Was recently prescribed doxycycline for it, but has not yet picked up his prescription. Not rapidly progressive. PMH: as above PSH: CABG, cholycystecomy, testicular cancer lymph node dissection Meds: carvedilol, atorvastatin, januvia, torsemide, aspirin, oxycodone All: Allergies Allergy/AdvReac Type Severity Reaction Status Date / Time turkey Allergy Intermediate Vomiting Verified 03/05/20 19:01 0-[id number]-O-tryptophan Allergy diarrhea, Verified 03/05/20 19:01 (oxitriptan) vomiting aspartame Allergy headache Verified 03/05/20 19:01 banana Allergy Verified 03/05/20 19:01 Penicillins Allergy Rash Verified 03/05/20 19:01 sumatriptan [From Imitrex] Allergy Verified 03/05/20 19:01 sumatriptan succinate Allergy Verified 03/05/20 19:01 [From Imitrex] SH: denies alc/tob/drugs PCP: [facility] ROS GENERAL/CONSTITUTIONAL: No fever or chills. +weakness. HEAD, EYES, EARS, NOSE AND THROAT: No change in vision. No ear pain or discharge. No sore throat. CARDIOVASCULAR: No chest pain or shortness of breath RESPIRATORY: No cough, wheezing, or hemoptysis. GASTROINTESTINAL: No nausea, vomiting, diarrhea or constipation. +bleeding hemorrhoids GENITOURINARY: No dysuria, frequency, or change in urination. MUSCULOSKELETAL: +muscle pain SKIN: red rash on b/l LE NEUROLOGIC: +headache from "high pressure weather" (chronic). No vertigo, loss of consciousness ENDOCRINE: No increased thirst. No abnormal weight change HEMATOLOGIC/LYMPHATIC: +anemia ALLERGIC/IMMUNOLOGIC: No hives or skin allergy. PE GENERAL: Awake, alert, and fully oriented, in no acute distress HEAD: No signs of trauma, normocephalic, atraumatic EYES: PERRLA, EOMI, sclera anicteric, conjunctiva clear ENT: hearing grossly normal, nares patent, oropharynx clear without exudates. Moist mucosa NECK: Normal ROM, supple, no lymphadenopathy, JVD, or masses LUNGS: No distress, speaks full sentences, clear to auscultation bilaterally, decreased respiratory effort and breath sounds HEART: Regular rate and rhythm, normal S1 and S2, no murmurs, rubs or gallops, peripheral pulses normal and equal bilaterally. ABDOMEN: Soft, nontender, normoactive bowel sounds. No guarding, no rebound. No masses EXTREMITIES : Normal inspection, Normal range of motion, no edema. No clubbing or cyanosis. NEUROLOGICAL: Cranial nerves II through XII grossly intact. Normal speech, no focal sensorimotor deficits SKIN: Warm, Dry, normal turgor. 2 small blisters on anterior right wallis with surrounding erythema on anterior/medial/posterior aspects with irregular border s. Small area of erythema on anterior left wallis. Assessment and Plan 69yo M with an extensive PMH, including CAD (s/p CABG), CKD (not on dialysis), DM, HFpEF, testicular cancer (in remission), and chronic pain who was sent to the ED by his physician for a K of 6.1 and increased Cr. EKG: sinus with 1st degree AV block, incomplete RBBB, no peaked T waves or wi dened QRS Labs: Notable for K 6.0, Cr 4.7, WBC 10.1 w/o shift CXR: cardiomegaly, no pleural effusions or consolidation (my read) -Insulin/D50 -Vancomycin 1g (renally dosed) for cellulitis Patient complained of his chronic back and joint pain, and his oxycodone 10mg q4hr PRN was confirmed with his pharmacy and given. Admit for medical optimization of acute on chronic renal failure, cellulitis. Signed out to admitting team. 03/05/20 20:16 03/05/20 21:14 03/05/20 22:16 03/06/20 01:33 Past History - Medical History Allergies/Adverse Reactions: Allergies Allergy/AdvReac Type Severity Reaction Status Date / Time turkey Allergy Intermediate Vomiting Verified 03/05/20 19:01 7-[id number]-I-tryptophan Allergy diarrhea, Verified 03/05/20 19:01 (oxitriptan) vomiting aspartame Allergy headache Verified 03/05/20 19:01 banana Allergy Verified 03/05/20 19:01 Penicillins Allergy Rash Verified 03/05/20 19:01 sumatriptan [From Imitrex] Allergy Verified 03/05/20 19:01 sumatriptan succinate Allergy Verified 03/05/20 19:01 [From Imitrex] Home Medications: Ambulatory Orders Aspirin [ASA -] 81 mg PO HS 09/20/15 Atorvastatin Ca [Lipitor] 80 mg PO HS 09/20/15 Carvedilol 25 mg PO BID 09/20/15 Nitroglycerin Sublingual [Nitrostat -] 0.4 mg SL [id number] PRN #30 tab 10/07/16 Multivit-Min/FA/Lycopen/Lutein [Centrum Silver Men Tablet] 1 each PO DAILY 11/22/17 Nitroglycerin Patch [Nitro-Dur Patch -] 0.4 mg TD HS 11/22/17 Ferrous Sulfate [Iron] 325 mg PO DAILY 07/27/18 Ascorbic Acid [Vitamin C -] 500 mg PO DAILY tablet 09/15/18 Sitagliptin Phosphate [Januvia] 50 mg PO DAILY 02/08/19 Torsemide [Demadex -] 40 mg PO BID 03/05/20 oxyCODONE HCL [Roxicodone -] 10 mg PO Q6H PRN MDD 4 03/05/20 Anemia: No Asthma: No Cancer: Yes (TESTICULAR ca with lymph node dissection) Cardiac Disorders: Yes ([place] 2014) CVA: Yes (TIA 05/2011) COPD: No CHF: Yes Dementia: No Diabetes: Yes GI Disorders: Yes (GASTRITIS, SPASTIC COLON, GERD; COLON POLYPS) Disorders: Yes (kidney failure) HTN: Yes Hypercholesterolemia: Yes Kidney Stones: Yes Liver Disease: No Seizures: No Thyroid Disease: No - Surgical History Abdominal Surgery: Yes Appendectomy: No Cardiac Surgery: Yes (quad bypass 2014) Cholecystectomy: Yes Lung Surgery: No Neurologic Surgery: Yes (HERNIATED DISC; BRAIN SURGERY INFANT) Orthopedic Surgery: Yes (KNEE ARTHROSCOPY R/L) - Immunization History Td Vaccination: Yes TDAP Vaccination: Yes Immunization Up to Date: Yes - Psycho-Social/Smoking History Smoking Status: No Smoking History: Never smoked Have you smoked in the past 12 months: No Number of Cigarettes Smoked Daily: 0 If you are a former smoker, when did you quit?: 50 years ago Cigars Per Day: 0 Information on smoking cessation initiated: No - Substance Abuse Hx (Audit-C & DAST Scrn) How often the patient has a drink containing alcohol: Never Score: In Men: 4 or > Positive; In Women: 3 or > Positive: 0 Screen Result (Pos requires Nsg. Audit-10AR): Negative In the last yr the pt used illegal drug/Rx for NonMed reason: No Score: Yes response is considered Positive: 0 Screen Result (Positive result requires Nsg. DAST-10): Negative *Physical Exam - Vital Signs Last Vital Signs Temp Pulse Resp BP Pulse Ox 98.2 F 73 20 181/53 H 100 03/05/20 18:55 03/05/20 18:55 03/05/20 18:55 03/05/20 18:55 03/05/20 18:55 ED Treatment Course - LABORATORY CBC & Chemistry Diagram: 03/05/20 19:59 03/05/20 21:22 Discharge - Discharge Information Problems reviewed: Yes Clinical Impression/Diagnosis: Hyperkalemia - Admission Yes - Follow up/Referral - Patient Discharge Instructions - Post Discharge Activity
--- NOTE | 2020-03-05 20:14 | PDOC ---
Attending Attestation - Resident Resident Name: Josselyn Melvinhan - ED Attending Attestation I have performed the following: I have examined & evaluated the patient, The case was reviewed & discussed with the resident, I agree w/resident's findings & plan, Exceptions are as noted - HPI HPI: 03/06/20 01:58 See resident HPI - Physicial Exam PE: 03/06/20 01:58 Agree with documented exam - Medical Decision Making 03/06/20 01:58 Sent by PCP for elevated K 6.1 on OP labs and untreated cellulitis f/u labs, cxr, ekg K6.0 hyperkalemia tx start abx admit Discharge - Discharge Information Problems reviewed: Yes Clinical Impression/Diagnosis: Hyperkalemia - Follow up/Referral - Patient Discharge Instructions - Post Discharge Activity
[2020-03-05 20:16] LABS: BASO % 0.8 % (0-2.0); EOS % 3.5 % (0-4.5); HEMATOCRIT 29.2 % (35.4-49); HEMOGLOBIN 9.7 GM/dL (11.7-16.9); LYMPH % 16.7 % (8-40); MCH 31.3 pg (25.7-33.7); MCHC 33.3 g/dl (32.0-35.9); MEAN CELL VOLUME 93.9 fl (80-96); MEAN PLT VOLUME 8.3 fl (7.5-11.1); MONO % 8.6 % (3.8-10.2); NEUT % 70.4 % (42.8-82.8); PLATELET COUNT 183 K/MM3 (134-434); RBC 3.11 M/mm3 (4.00-5.60); RDW 14.7 % (11.9-15.9); WHITE BLOOD COUNT 10.1 K/mm3 (4.0-10.0)
[2020-03-05 20:23] LABS: PROTHROMBIN TIME (PATIENT) 11.8 SEC (9.7-13.0)
[2020-03-05 20:26] LABS: ACTIVATED PTT 30.9 SECONDS (25.2-36.5)
[2020-03-05 20:50] LABS: ALBUMIN 3.4 g/dl (3.4-5.0); ALK PHOS 84 U/L (45-117); BILIRUBIN,TOTAL 0.4 mg/dL (0.2-1); BLOOD UREA NITROGEN 87.4 mg/dL (7-18); CALCIUM 9.2 mg/dL (8.5-10.1); CHLORIDE 112 mmol/L (98-107); CO2 22 mmol/L (21-32); CREATININE 4.5 mg/dL (0.55-1.3); GLUCOSE,RANDOM 157 mg/dL (74-106); MAGNESIUM 2.9 mg/dL (1.8-2.4); SGOT/AST 26 U/L (15-37); SGPT/ALT 24 U/L (13-61); SODIUM 142 mmol/L (136-145); TOT PROT 7.3 g/dl (6.4-8.2)
[2020-03-05] MEDS ORDERED: oxyCODONE HCL 5 MG TABLET PO ONE (21:07)
[2020-03-05] MEDS ORDERED: oxyCODONE HCL 5 MG TABLET ONE (21:12)
[2020-03-05 21:14] LABS: ANION GAP 8 MMOL/L (8-16)
[2020-03-05 21:16] LABS: POTASSIUM 6.6 mmol/L (3.5-5.1)
[2020-03-05 21:56] LABS: BLOOD UREA NITROGEN 88.2 mg/dL (7-18); CALCIUM 9.5 mg/dL (8.5-10.1); CREATININE 4.7 mg/dL (0.55-1.3)
[2020-03-05] MEDS ORDERED: DEXTROSE 50%-WATER - 25 GM/50 ML VIAL IVPUSH ONE (22:19)
[2020-03-05] MEDS ORDERED: INSULIN REGULAR HUMAN 100 UNITS/ML *VIAL SQ ONE (22:19)
[2020-03-05] MEDS ORDERED: SODIUM POLYSTYRENE SULFONATE 15 GM/60 ML BOTTLE PO ONE ×2 (22:20)
[2020-03-05] MEDS ORDERED: VANCOMYCIN 1 GM in D5W (PRE-DOCKED) 1,000 MG/250 ML IVPB ONE (22:21)
[2020-03-05] MEDS ORDERED: VANCOMYCIN 1 GRAM (PRE-DOCKED) 1,000 MG/250 ML BAG IVPB ONE (22:24)
[2020-03-05] MEDS ORDERED: DEXTROSE 50%-WATER 25 GM/50 ML DISP.SYRIN ONE (22:24)
[2020-03-05] MEDS ORDERED: SODIUM POLYSTYRENE SULFONATE 15 GM/60 ML BOTTLE ONE (22:24)
--- NOTE | 2020-03-05 22:42 | PN ---
Teaching Attending Note Name of Resident: Damir Servin ATTENDING PHYSICIAN STATEMENT I saw and evaluated the patient. I reviewed the resident's note and discussed the case with the resident. I agree with the resident's findings and plan as documented. SUBJECTIVE: Patient is a 69 year old man with a PMH of Penicillin allergy, NIDDM, CAD (s/p 4 Vessel CABG 2016 at [facility]), HFpEF, CKD, TIA, HTN, Testicular cancer with lymphnode dissection, Penicillin allergy, Gout, Afib, Restless leg syndrome and Internal hemorrhoids (rectal bleeding) who was sent to the ER by his physician for a potassium of 6.1 and an increased Creatinine from baseline. Patient has CKD but not interested in ever pursuing dialysis and is not adherent with diet. He states he went to his doctor for increased lethargy and was found to have high potassium. He has increased muscle weakness and cramping. He denies fever, chills, nausea, vomiting, chest pain, dysuria, abdominal pain or diarrhea. Has had ?cellulitis on both lower extremities for 1.5 months. Was recently prescribed Doxycycline but has not yet picked up his prescription. Denies alcohol, tobacco or illicit drug use. No sick contacts or recent travels. Family history HTN and DM in mother and father's side. OBJECTIVE: Alert Vital Signs Period Temp Pulse Resp BP Sys/Guo Pulse Ox Last 24 Hr 98.2 F 73-90 20-20 175-181/53-83 95-100 HEENT: No Jaundice, eye redness or discharge, PERRLA, EOMI. Normocephalic, atraumatic. External ears are normal and hearing is grossly intact. No nasal discharge. Neck: Supple, nontender. No palpable adenopathy or thyromegaly. No JVD Chest: Good effort. Clear to auscultation and percussion. Heart: Regular. No S3, rub or murmur Abdomen: Not distended, soft, nontender and no HSM. No rebound or guarding. Normal bowel sounds. Ext: Peripheral pulses intact. Right wallis blisters with surrounding erythema; left wallis erythema. Leg edema. Skin: Warm and dry. No petechiae, rash or ecchymosis. Neuro: Alert. Oriented x3. CN 2-12 grossly intact. Sensation grossly intact in all four extremities and DTR are symmetric. Psych: Appropriate mood and affect. Good insight. Home Medications Medication Instructions Recorded Aspirin [ASA -] 81 mg PO HS 09/20/15 Atorvastatin Ca [Lipitor] 80 mg PO HS 09/20/15 Carvedilol 25 mg PO BID 09/20/15 Nitroglycerin Sublingual 0.4 mg SL [id number] PRN #30 tab 10/07/16 [Nitrostat -] Multivit-Min/FA/Lycopen/Lutein 1 each PO DAILY 11/22/17 [Centrum Silver Men Tablet] Nitroglycerin Patch [Nitro-Dur 0.4 mg TD HS 11/22/17 Patch -] Ferrous Sulfate [Iron] 325 mg PO DAILY 07/27/18 Ascorbic Acid [Vitamin C -] 500 mg PO DAILY tablet 09/15/18 Sitagliptin Phosphate [Januvia] 50 mg PO DAILY 02/08/19 Torsemide [Demadex -] 40 mg PO BID 03/05/20 oxyCODONE HCL [Roxicodone -] 10 mg PO Q6H PRN MDD 4 03/05/20 Abnormal Lab Results 03/05/20 03/05/20 03/05/20 19:59 19:59 21:22 WBC 10.1 H RBC 3.11 L Hgb 9.7 L Hct 29.2 L Potassium 6.6 H* 6.0 H Chloride 112 H 112 H BUN 87.4 H 88.2 H Creatinine 4.5 H 4.7 H Random Glucose 157 H 170 H Magnesium 2.9 H CK-MB (CK-2) 4.0 H ASSESSMENT AND PLAN: 1. Advanced CKD/Hyperkalemia/Leg cellulitis - Has multiple risk actors for CKD. Hyperkalemia likely due to declining GFR, type 4 RTA and hyperglycemia. EKG shows NSR at 69/minute, Io AV block, IRBBB and QTc [address]-T wave changes. ER staff prescribed Vancomycin, Oxycodone, D50W, Insulin and Kayexalate for the patient. Will treat with Lokelma, IV Cipro, IV Clindamycin, hydrate gently, get renal sonogram to rule out acute obstruction and consult Nephrology. Monitor urine output. Avoid nephrotoxic agents such as NSAIDS, aminoglycosides, contrast dyes and certain Alternative medicine products. Viral testing for COVID-19 ordered and patient placed on airborne, droplet and contact isolation. Will continue comprehensive care for all of patients comorbid conditions. 2. DM For now, we will hold the home diabetes drugs and implement sliding scale insulin regimen. Provide comprehensive diabetes care with patient teaching and counseling about the importance of adherence to prescribed diabetes regimen, euglycemia, eye care and foot care. 3. Anemia - Likely chiefly due to CKD. Will do basic anemia work up including serial stool guaiacs, reticulocyte count and iron studies. Would benefit from Procrit therapy once iron replete. 4. Morbid obesity Counseled on the risks associated with obesity. Will provide patient all the necessary assistance, counseling and positive reinforcement to facilitate weight loss. Consult teasel setter. 5. Uncontrolled hypertension Will restart suitable outpatient antihypertensive drugs when clinically appropriate. Subsequently, will revise regimen to ensure [id number] excellent BP control. Patient counseled on the injurious effects of uncontrolled hypertension. Nonpharmacologic measures to control hypertension like weight loss, salt restriction and exercise stressed. Importance of adheren ce to treatment regimen and attainment of normotension emphasized. 6. DVT prophylaxis - Heparin 5000u sq tid. 7. Advance directives - DNR/DNI.
[2020-03-06] MEDS ORDERED: CARVEDILOL 12.5 MG TABLET (FP) PO ONE (00:50)
--- NOTE | 2020-03-06 01:18 | HP ---
CHIEF COMPLAINT: Sent by PCP due to hyperkalemia and LE cellulitis PCP: Dr. Kurtz HISTORY OF PRESENT ILLNESS: 69 y.o. M PMHx CAD s/p CABG, CKD (refuses dialysis), diabetes, HFpEF, testiclar cancer (remission), chronic pain. Patient was sent to the ED by his PCP for hyperkalemia of 6.1 and a Cr of 4.0. Patient admits to being lethargic and generalized weakness over the past few days. On his lower extremities he has areas of erythema and a 2cm lesion on the right with a fluid filled pustule. Patient stated he went to the hospital last week and was prescribed antibiotics but has not taken them. He stated his leg swelling has also gotten worse over the past 3 days. 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 He has not been around any sick contact and is adamant on not wanting dialysis. Patient has multiple admissions in the past ranging from CHF exacerbations, VILLA/CKD workup and cellulitis. ER course was notable for: (1) D50, Insulin 10u (2) Oxycodone 10mg (3) EKG Recent Travel: None PAST MEDICAL HISTORY: PAST SURGICAL HISTORY: CABG, Cholecystectomy, testiculr cancer w/ lymph node dissection, multiple neck procedures, 5x hemorrhoid procedures Social History: Smoking: None Alcohol: None Drugs: None Allergies: propranolol - coded turkey Allergy (Intermediate, Verified 03/05/20 19:01) Vomiting [id number]-tryptophan (oxitriptan) Allergy (Verified 03/05/20 19:01) diarrhea, vomiting aspartame Allergy (Verified 03/05/20 19:01) headache banana Allergy (Verified 03/05/20 19:01) Penicillins Allergy (Verified 03/05/20 19:01) Rash sumatriptan [From Imitrex] Allergy (Verified 03/05/20 19:01) sumatriptan succinate [From Imitrex] Allergy (Verified 03/05/20 19:01) HOME MEDICATIONS: Home Medications Medication Instructions Recorded Aspirin [ASA -] 81 mg PO HS 09/20/15 Atorvastatin Ca [Lipitor] 80 mg PO HS 09/20/15 Carvedilol 25 mg PO BID 09/20/15 Nitroglycerin Sublingual 0.4 mg SL [id number] PRN #30 tab 10/07/16 [Nitrostat -] Multivit-Min/FA/Lycopen/Lutein 1 each PO DAILY 11/22/17 [Centrum Silver Men Tablet] Nitroglycerin Patch [Nitro-Dur 0.4 mg TD HS 11/22/17 Patch -] Ferrous Sulfate [Iron] 325 mg PO DAILY 07/27/18 Ascorbic Acid [Vitamin C -] 500 mg PO DAILY tablet 09/15/18 Sitagliptin Phosphate [Januvia] 50 mg PO DAILY 02/08/19 Torsemide [Demadex -] 40 mg PO BID 03/05/20 oxyCODONE HCL [Roxicodone -] 10 mg PO Q6H PRN MDD 4 03/05/20 REVIEW OF SYSTEMS CONSTITUTIONAL: Generalized weakness Absent: fever, chills, diaphoresis, malaise, loss of appetite, weight change HEENT: Absent: rhinorrhea, nasal congestion, throat pain, throat swelling, difficulty swallowing, mouth swelling, ear pain, eye pain, visual changes CARDIOVASCULAR: Absent: chest pain, syncope, palpitations, irregular heart rate, lighthe adedness, peripheral edema RESPIRATORY: Absent: cough, shortness of breath, dyspnea with exertion, orthopnea, wheezing, stridor, hemoptysis GASTROINTESTINAL: Absent: abdominal pain, abdominal distension, nausea, vomiting, diarrhea, constipation, melena, hematochezia GENITOURINARY: Absent: dysuria, frequency, urgency, hesitancy, hematuria, flank pain, genital pain MUSCULOSKELETAL: Absent: myalgia, arthralgia, joint swelling, back pain, neck pain SKIN: Absent: rash, itching, pallor HEMATOLOGIC/IMMUNOLOGIC: Absent: easy bleeding, easy bruising, lymphadenopathy, frequent infections ENDOCRINE: Absent: unexplained weight gain, unexplained weight loss, heat intolerance, cold intolerance NEUROLOGIC: Absent: headache, focal weakness or paresthesias, dizziness, unsteady gait, seizure, mental status changes, bladder or bowel incontinence PSYCHIATRIC: Absent: anxiety, depression, suicidal or homicidal ideation, hallucinations. PHYSICAL EXAMINATION Vital Signs - 24 hr 03/05/20 03/05/20 18:55 23:40 Temperature 98.2 F Pulse Rate 73 Pulse Rate [ 90 Left] Respiratory 20 20 Rate Blood Pressure 181/53 H Blood Pressure 175/83 H [Right Arm] O2 Sat by Pulse 100 95 Oximetry (%) GENERAL: Awake, alert, and fully oriented, in no acute distress. HEAD: Normal with no signs of trauma. EYES: Pupils equal, round and reactive to light, extraocular movements intact, sclera anicteric, conjunctiva clear. EARS, NOSE, THROAT: Oropharynx clear without exudates. Moist mucous membranes. NECK: Normal range of motion, supple without lymphadenopathy, JVD, or masses. LUNGS: Decreased breath sounds bilaterally. No wheezes, and no crackles. No accessory muscle use. HEART: Regular rate and rhythm, normal S1 and S2 without murmur, rub or gallop. ABDOMEN: Soft, nontender, not distended, normoactive bowel sounds, no guarding, no rebound, no masses. MUSCULOSKELETAL: Normal range of motion at all joints. No bony deformities or tenderness. No CVA tenderness. UPPER EXTREMITIES: 2+ pulses, warm, well-perfused.. No peripheral edema. LOWER EXTREMITIES: 2+ pulses, warm, well-perfused. No calf tenderness. 2+ peripheral edema. NEUROLOGICAL: Cranial nerves II-XII intact. Normal speech. PSYCHIATRIC: Cooperative. Good eye contact. Appropriate mood and affect. SKIN: Warm, dry, normal turgor. b/l LE erythema and 2cm lesion on the R with a pustule of fluid Laboratory Results - last 24 hr 03/05/20 03/05/20 03/05/20 19:57 19:59 19:59 WBC 10.1 H RBC 3.11 L Hgb 9.7 L Hct 29.2 L MCV 93.9 MCH 31.3 MCHC 33.3 RDW 14.7 Plt Count 183 D MPV 8.3 Absolute Neuts (auto) 7.1 Neutrophils % 70.4 Lymphocytes % 16.7 Monocytes % 8.6 Eosinophils % 3.5 Basophils % 0.8 Nucleated RBC % 0 PT with INR 11.80 INR 1.00 PTT (Actin FS) 30.9 Sodium Potassium Chloride Carbon Dioxide Anion Gap BUN Creatinine Est GFR (CKD-EPI)AfAm Est GFR (CKD-EPI)NonAf Random Glucose Calcium Magnesium Total Bilirubin AST ALT Alkaline Phosphatase Creatine Kinase Creatine Kinase Index CK-MB (CK-2) Troponin I Total Protein Albumin Blood Type A POSITIVE Antibody Screen Negative 03/05/20 03/05/20 19:59 21:22 WBC RBC Hgb Hct MCV MCH MCHC RDW Plt Count MPV Absolute Neuts (auto) Neutrophils % Lymphocytes % Monocytes % Eosinophils % Basophils % Nucleated RBC % PT with INR INR PTT (Actin FS) Sodium 142 144 Potassium 6.6 H* 6.0 H Chloride 112 H 112 H Carbon Dioxide 22 23 Anion Gap 8 8 BUN 87.4 H 88.2 H Creatinine 4.5 H 4.7 H Est GFR (CKD-EPI)AfAm 14.48 13.74 Est GFR (CKD-EPI)NonAf 12.49 11.85 Random Glucose 157 H 170 H Calcium 9.2 9.5 Magnesium 2.9 H Total Bilirubin 0.4 AST 26 ALT 24 Alkaline Phosphatase 84 Creatine Kinase 232 Creatine Kinase Index 1.7 CK-MB (CK-2) 4.0 H Troponin I < 0.02 Total Protein 7.3 Albumin 3.4 Blood Type Antibody Screen ASSESSMENT/PLAN: 69 y.o. M PMHx CAD s/p CABG, CKD, diabetes, HFpEF, testiclar cancer (remission), chronic pain. Sent by PCP due to hyperkalemia, elevated Cr and cellulitis. # Hyperkalemia - Likely secondary to CKD - K+ on admission 6 - Given Insulin 10u & D50 - Lokelma 5g - Nephro consult (Dr. Alatorre) - Patient refuses dialysis although consulted on importance - Renal US to r/o obstruction - EKG ordered for AM f/u - Will f/u morning labs - Vitals Q4 - Trops negative x1 # Cellulitis - WBC 10.1 - Ciprofloxacin 400mg BID - Clindamycin 600mg Q8 - Will monitor for fever or LE visual changes # HTN - BP 175/83; MAP 110 - Coreg 12.5mg Po once - Continue home dose of coreg 25mg BID # Diabetes - Glucose 170 - Monitor BGM - Sliding scale # Anemia - Hgb 9.7, Hct 29.2 - Iron studies - FOBT ordered # Covid r/o - Covid PCR Ordered - PCR ordered due to geographic location of pandemic - Placed in isolation precautions # FEN - Encourage oral hydration - Diabetic/sodium controlled diet # DVT Prophylaxis - Mechanical A/C - Hold medical a/c due to CKD # Dispo - Admitted to med-surg; will f/u on patient Visit type - Emergency Visit Emergency Visit: Yes ED Registration Date: 03/05/20 Care time: The patient presented to the Emergency Department on the above date and was hospitalized for further evaluation of their emergent condition. - New Patient This patient is new to me today: Yes Date on this admission: 03/05/20 - Critical Care Critical Care patient: No ATTENDING PHYSICIAN STATEMENT I saw and evaluated the patient. I reviewed the resident's note and discussed the case with the resident. I agree with the resident's findings and plan as documented. SUBJECTIVE: OBJECTIVE: ASSESSMENT AND PLAN:
[2020-03-06] MEDS ORDERED: SODIUM ZIRCONIUM CYCLOSILICATE (LOKELMA) 5 GM PACKET PO ONE (01:46)
[2020-03-06] MEDS: CLINDAMYCIN 600MG PREMIX IVPB 600 MG/50 ML BAG IVPB SCH ×2 (02:04→10:14)
[2020-03-06 03:12] VITALS: BMI 37.5
[2020-03-06] MEDS ORDERED: oxyCODONE HCL 5 MG TABLET PO PRN (03:40)
[2020-03-06] MEDS ORDERED: NITROGLYCERIN SUBLINGUAL 1/150 0.4 MG TAB SL PRN (04:09)
[2020-03-06] MEDS: ASPIRIN 81 MG CHEWABLE TABLETS PO SCH ×2 (04:16→21:23)
[2020-03-06] MEDS ORDERED: ASPIRIN 81 MG CHEWABLE TABLETS PO ONE (04:18)
[2020-03-06 05:20] LABS: BLOOD UREA NITROGEN 86.7 mg/dL (7-18); CALCIUM 8.9 mg/dL (8.5-10.1); CREATININE 4.4 mg/dL (0.55-1.3); POTASSIUM 5.7 mmol/L (3.5-5.1)
[2020-03-06] MEDS ORDERED: CALCIUM GLUCONATE 10% - 1,000 MG/10 ML VIAL IVPUSH ONE (05:24)
[2020-03-06] MEDS ORDERED: CALCIUM GLUCONATE 10% - 1,000 MG/10 ML VIAL IVPB ONE (06:08)
[2020-03-06] MEDS: INSULIN SLIDING SCALE (NOVOLOG) 1 VIAL SQ SCH ×4 (06:46→21:41)
[2020-03-06 09:03] LABS: CHLORIDE 93 mmol/L (98-107); POTASSIUM 4.7 mmol/L (3.5-5.1); SODIUM 123 mmol/L (136-145)
[2020-03-06] MEDS ORDERED: PT OWN MED DRAWER 7, Y5N ONE ×4 (09:08→18:11)
[2020-03-06 09:15] LABS: IRON SERUM 38 ug/dL (50-175); TOTAL IRON BINDING CAPACITY 162 ug/dL (250-450)
[2020-03-06 09:25] LABS: ANION GAP 13 MMOL/L (8-16); BLOOD UREA NITROGEN 73.2 mg/dL (7-18); CO2 18 mmol/L (21-32); MAGNESIUM 2.2 mg/dL (1.8-2.4); PHOSPHOROUS 4.4 mg/dL (2.5-4.9)
[2020-03-06 09:53] LABS: CALCIUM > 15.0 mg/dL (8.5-10.1); GLUCOSE,RANDOM 648 mg/dL (74-106)
[2020-03-06] MEDS ORDERED: PATIENT'S OWN MEDICATION (NON-FORMULARY) (Ferrous Sulfate [Iron] 325 MG) PO SCH (10:00)
[2020-03-06] MEDS ORDERED: SODIUM ZIRCONIUM CYCLOSILICATE (LOKELMA) 5 GM PACKET PO SCH ×2 (10:00→14:27)
[2020-03-06] MEDS ORDERED: CIPROFLOXACIN 400 MG/D5W 400 MG/200 ML IVPB IVPB SCH (10:00)
[2020-03-06] MEDS: SODIUM ZIRCONIUM CYCLOSILICATE (LOKELMA) 5 GM PACKET PO SCH ×2 (10:14→11:33)
[2020-03-06] MEDS: TORSEMIDE 20 MG TABLET (FP) PO SCH ×3 (10:14→21:23)
[2020-03-06] MEDS: FERROUS SO4 325 MG TABLET (FP) PO SCH ×2 (10:14→11:33)
[2020-03-06] MEDS: CARVEDILOL 25 MG TABLET (FP) PO SCH ×3 (10:14→21:24)
--- NOTE | 2020-03-06 10:21 | EKG ---
Test Reason : Blood Pressure : / mmHG Vent. Rate : 070 BPM Atrial Rate : 070 BPM P-R Int : 220 ms QRS Dur : 114 ms QT Int : 402 ms P-R-T Axes : 068 050 038 degrees QTc Int : 434 ms SINUS RHYTHM WITH 1ST DEGREE A-V BLOCK OTHERWISE NORMAL ECG WHEN COMPARED WITH ECG OF 05-MAR-2020 19:11, NO SIGNIFICANT CHANGE WAS FOUND Confirmed by ANDREA GORDON MD ([id number]) on 03/06/2020 10:20:53 AM Referred By: Confirmed By:ANDREA GORDON MD
--- NOTE | 2020-03-06 10:23 | EKG ---
Test Reason : Blood Pressure : / mmHG Vent. Rate : 069 BPM Atrial Rate : 069 BPM P-R Int : 212 ms QRS Dur : 116 ms QT Int : 400 ms P-R-T Axes : 085 065 056 degrees QTc Int : 428 ms SINUS RHYTHM WITH 1ST DEGREE A-V BLOCK INCOMPLETE RIGHT BUNDLE BRANCH BLOCK CANNOT RULE OUT ANTERIOR INFARCT , AGE UNDETERMINED ABNORMAL ECG WHEN COMPARED WITH ECG OF 30-APR-2019 01:44, T WAVE INVERSION NO LONGER EVIDENT IN LATERAL LEADS Confirmed by ANDREA GORDON MD ([id number]) on 03/06/2020 10:22:55 AM Referred By: Confirmed By:ANDREA GORDON MD
[2020-03-06] MEDS: oxyCODONE HCL 5 MG TABLET PO PRN ×3 (10:30→18:51)
--- NOTE | 2020-03-06 10:41 | PN ---
Progress Note (short form) - Note Progress Note: ID CONSULT DICTATED CELLULITIS LE BILATERALLY PCN ALLERGY UNCONTROLLED DM AZOTEMIA MORBID OBESITY OBTAIN BC EMPIRIC CEFAZOLIN ELEVATION
[2020-03-06 11:54] LABS: BASO % 0.4 % (0-2.0); EOS % 3.2 % (0-4.5); HEMATOCRIT 26.2 % (35.4-49); HEMOGLOBIN 8.9 GM/dL (11.7-16.9); LYMPH % 17.1 % (8-40); MCH 31.6 pg (25.7-33.7); MCHC 33.8 g/dl (32.0-35.9); MEAN CELL VOLUME 93.3 fl (80-96); MEAN PLT VOLUME 8.1 fl (7.5-11.1); MONO % 9.5 % (3.8-10.2); NEUT % 69.8 % (42.8-82.8); PLATELET COUNT 169 K/MM3 (134-434); RBC 2.81 M/mm3 (4.00-5.60); RDW 14.8 % (11.9-15.9); WHITE BLOOD COUNT 8.9 K/mm3 (4.0-10.0)
[2020-03-06 12:28] LABS: ALBUMIN 3.2 g/dl (3.4-5.0); BILIRUBIN,TOTAL 0.5 mg/dL (0.2-1); BLOOD UREA NITROGEN 85.5 mg/dL (7-18); CALCIUM 9.3 mg/dL (8.5-10.1); CREATININE 4.4 mg/dL (0.55-1.3); MAGNESIUM 2.7 mg/dL (1.8-2.4); PHOSPHOROUS 5.2 mg/dL (2.5-4.9); POTASSIUM 5.4 mmol/L (3.5-5.1); TOT PROT 6.9 g/dl (6.4-8.2)
--- NOTE | 2020-03-06 14:26 | CONSULT ---
Consult Consult Specialty:: Nephrology Reason for Consultation:: CKD - History of Present Illness Chief Complaint: sent in for hyperkalemia History of Present Illness: Pt is a 69 year old male with pmhx of cad, ckd, cabg, dm, chf, testicular cancer who was sent in for hyperkalemia. He has advanced CKD but does not want HD therapy. He is on lasix at home. He does get shortness of breath with ambulation. he complains of lower ext edema. He denies chest pain. He still does not want HD therapy. He denies fevers or chills. - History Source History Provided By: Patient, Medical Record - Past Medical History FIELD SERVICER: Yes: TIA, Other (possible restless leg syndrome) Cardio/Vascular: Yes: CAD, CHF, HTN, Hyperlipdemia, Other (Cardiac arrest 2000 carotid artery stenosis) Pulmonary: Yes: Other (PNA after spinal surgery 2000) Gastrointestinal: Yes: Irritable Bowel Disease Renal/: Yes: Renal Inusuff, Other (testicular cancer) Psych: Yes: Depression Musculoskeletal: Yes: Chronic low back pain, Osteoarthritis, Other (sciatica) Rheumatology: Yes: Gout Endocrine: Yes: Diabetes Mellitus - Past Surgical History Past Surgical History: Yes: CABG, Cholecystectomy (1997) - Alcohol/Substance Use Hx Alcohol Use: No History of Substance Use: reports: None - Smoking History Smoking history: Never smoked Have you smoked in the past 12 months: No Aproximately how many cigarettes per day: 0 If you are a former smoker, when did you quit?: 50 years ago - Social History ADL: Independent History of Recent Travel: No Home Medications - Allergies Allergies/Adverse Reactions: Allergies Allergy/AdvReac Type Severity Reaction Status Date / Time turkey Allergy Intermediate Vomiting Verified 03/05/20 19:01 [id number]-S-tryptophan Allergy diarrhea, Verified 03/05/20 19:01 (oxitriptan) vomiting aspartame Allergy headache Verified 03/05/20 19:01 banana Allergy Verified 03/05/20 19:01 Penicillins Allergy Rash Verified 03/05/20 19:01 sumatriptan [From Imitrex] Allergy Verified 03/05/20 19:01 sumatriptan succinate Allergy Verified 03/05/20 19:01 [From Imitrex] - Home Medications Home Medications: Ambulatory Orders Aspirin [ASA -] 81 mg PO HS 09/20/15 Atorvastatin Ca [Lipitor] 80 mg PO HS 09/20/15 Carvedilol 25 mg PO BID 09/20/15 Nitroglycerin Sublingual [Nitrostat -] 0.4 mg SL [id number] PRN #30 tab 10/07/16 Multivit-Min/FA/Lycopen/Lutein [Centrum Silver Men Tablet] 1 each PO DAILY 11/22/17 Nitroglycerin Patch [Nitro-Dur Patch -] 0.4 mg TD HS 11/22/17 Ferrous Sulfate [Iron] 325 mg PO DAILY 07/27/18 Ascorbic Acid [Vitamin C -] 500 mg PO DAILY tablet 09/15/18 Sitagliptin Phosphate [Januvia] 50 mg PO DAILY 02/08/19 Torsemide [Demadex -] 40 mg PO AM 03/05/20 oxyCODONE HCL [Roxicodone -] 10 mg PO Q4H PRN MDD 4 03/05/20 oxyCODONE SR [Oxycontin] 5 mg PO Q6H PRN 03/06/20 oxyCODONE SR [Oxycontin] 15 mg PO BID 03/06/20 Family Medical History Family History: Denies Review of Systems - Review of Systems Constitutional: reports: Loss of Appetite, Malaise, Weakness Eyes: reports: No Symptoms HENT: reports: No Symptoms Neck: reports: No Symptoms Cardiovascular: reports: No Symptoms Respiratory: reports: No Symptoms Gastrointestinal: reports: No Symptoms Genitourinary: reports: No Symptoms Musculoskeletal: reports: No Symptoms Integumentary: reports: No Symptoms Neurological: reports: No Symptoms Endocrine: reports: No Symptoms Hematology/Lymphatic: reports: No Symptoms Psychiatric: reports: No Symptoms Physical Exam Vital Signs: Vital Signs Temperature 98.0 F 03/06/20 11:51 Pulse Rate 78 03/06/20 11:51 Respiratory Rate 20 03/06/20 11:51 Blood Pressure 161/82 03/06/20 11:51 O2 Sat by Pulse Oximetry (%) 97 03/06/20 11:51 Constitutional: Yes: Calm Eyes: Yes: Conjunctiva Clear HENT: Yes: Atraumatic Neck: Yes: Supple Cardiovascular: Yes: S1, S2 Respiratory: Yes: On Nasal O2 Gastrointestinal: Yes: Soft, Abdomen, Obese Renal/: Yes: WNL Edema: Yes Edema: LLE: 3+, RLE: 3+ Neurological: Yes: Oriented Psychiatric: Yes: Oriented Labs: CBC, BMP 03/06/20 10:45 03/06/20 10:45 Laboratory Tests 03/06/20 03/06/20 03/06/20 04:30 07:19 10:45 Sodium 142 140 Potassium 5.7 H 5.4 H Chloride 110 H BUN 85.5 H Creatinine 4.0 H 4.4 H Random Glucose 117 H Imaging - Results Chest X-ray: Report Reviewed Assessment/Plan Current Medications Generic Name Dose Route Start Last Admin Trade Name Freq PRN Reason Stop Dose Admin Aspirin 81 mg 03/06/20 04:09 03/06/20 04:16 Asa - PO 81 mg HS [facility]IN[facility]O Administration Atorvastatin Calcium 80 mg 03/06/20 22:00 Lipitor - PO HS [facility]O Carvedilol 25 mg 03/06/20 10:00 03/06/20 11:33 Coreg - PO 25 mg BID [facility]O Administration Ferrous Sulfate 325 mg 03/06/20 10:00 03/06/20 11:33 Feosol - PO 325 mg DAILY [facility] Administration Cefazolin Sodium 500 mg/ 50 mls @ 100 mls/hr 03/06/20 10:45 Dextrose IVPB Q8H-IV [facility]O Insulin Aspart 1 vial 03/06/20 07:00 03/06/20 11:50 Novolog Vial Sliding Scale - SQ Not Given ACHS [facility] Protocol Nitroglycerin 0.4 mg 03/06/20 04:09 03/06/20 04:16 Nitrostat - SL 0.4 mg [id number] PRN Administration CHEST PAIN Oxycodone HCl 10 mg 03/06/20 10:21 03/06/20 10:30 Roxicodone - PO 10 mg Q4H PRN Administration PAIN LEVEL 4 - 6 Sodium Zirconium Cyclosilicate 5 gm 03/06/20 10:00 03/06/20 11:33 Lokelma PO 5 gm DAILY [facility] Administration Torsemide 40 mg 03/06/20 10:00 03/06/20 11:33 Demadex - PO 40 mg BID [facility] Administration Impression 1. hyperkalemia 2. PNA 3. ckd 4. chronic pain 5. cad 6. dm 7. edema Plan - cont torsemide - cont lokelma - potassium improving - pt still does not want HD - repeat labs in am - discuss GOC
[2020-03-06] MEDS ORDERED: SILVER SULFADIAZINE 1% TOP CREAM 400 GM JAR TP SCH (14:30)
[2020-03-06] MEDS ORDERED: SILVER SULFADIAZINE 1% TOP CREAM 50 GM JAR TP SCH (14:34)
[2020-03-06] MEDS: CEFAZOLIN 500 MG in DEXTROSE 5%-WATER - 50 ML IVPB SCH ×2 (14:51→18:01)
--- NOTE | 2020-03-06 16:35 | CONS ---
DATE OF CONSULTATION: DATE OF DICTATION: 03/06/2020 HISTORY OF PRESENT ILLNESS: The patient is a 69-year-old morbidly obese diabetic with a history of chronic kidney disease evaluated for bilateral lower extremity cellulitis. He was sent to the emergency room after he was noted by his edge polisher to have hyperkalemia. He has a history of chronic kidney disease. Upon presentation he was noted to have cellulitis of his lower extremities bilaterally. The patient states that he had developed a blister on the pretibial aspect of his right lower extremity several weeks to months ago. He did not seek medical attention because of the coronavirus pandemic. He developed progressively worsening erythema, warmth, and swelling of both lower extremities. He had been prescribed doxycycline as an outpatient; however, he was not compliant with his medication. He is now admitted for further evaluation and treatment. He denies a traumatic injury to his lower extremities. No insect or animal bites or scratches. He has no history of resistance skin pathogens. No recent hospitalizations. He has a history of PENICILLIN allergy which is questionable. He has received ceftriaxone in 2019 without adverse reaction. PAST MEDICAL HISTORY: Positive for diabetes mellitus, morbid obesity, chronic kidney disease, COPD, coronary artery disease, history of testicular cancer status post resection, lymph node dissection. PAST SURGICAL HISTORY: Status post coronary artery bypass graft, status post cholecystectomy. ALLERGIES: PENICILLIN. The patient is vague with respect to this allergy. He reports that his mother had developed an adverse reaction in the past. He specifically has no recall for an anaphylactic reaction to penicillin. He was prescribed ceftriaxone in 2019 and tolerated it without adverse reaction. MEDICATIONS: Levaquin, clindamycin, vancomycin, Lipitor, Coreg, nitroglycerin, aspirin, oxycodone, Demadex, insulin. SOCIAL HISTORY: He resides in the community. His last hospitalization was in April of 2019. He is a nonsmoker and nondrinker. REVIEW OF SYSTEMS: Neurologic: No loss of consciousness, seizure activity, focal weakness. Cardiac: Negative chest pain or palpitations. Respiratory: Negative cough or sputum production. Gastrointestinal: Negative vomiting or diarrhea. Genitourinary: Negative for urinary tract infection. LABORATORY DATA: White count 10.1, hematocrit 29.2, platelet count 183. Glucose 648, creatinine 4. Creatinine clearance calculated at 28%. PHYSICAL EXAMINATION: General: He is awake and responsive. He is in no acute distress, seated in bed, morbidly obese. Vital Signs: Temperature 98.2, blood pressure 154/73, pulse 82 regular, respirations 18 per minute. HEENT: Sclera anicteric. Heart: Sounds S1 and S2. Lungs: Clear. Abdomen: Obese. Nontender. Extremities: Positive for bilateral lower extremity edema. Examination of the right lower extremity, there is a 2-cm bullous lesion present over the right pretibial area. There is surrounding erythema involving the midleg circumferentially from the pretibial area to the calf. It is warm to touch. There is no crepitus or fluctuance. No lymphangitic streaking; however, there is tenderness present medial thigh. Examination of the left lower extremity, there is a smaller area approximately 10 x 10 cm involving the pretibial aspect of the leg. No crepitus, fluctuance, or lymphangitic streaking. No open areas or drainage noted. IMPRESSION: 1. Bilateral lower extremity cellulitis. 2. PENICILLIN allergy. 3. Uncontrolled diabetes mellitus. 4. Azotemia. 5. Morbid obesity. PLAN: I will obtain blood cultures, empiric cefazolin adjusted for renal insufficiency, elevation. Will follow. Thank you for the kind referral. ANDREA JOSEPH M.D. [id number]
--- NOTE | 2020-03-06 18:14 | PN ---
Teaching Attending Note Name of Resident: Libertad Blas ATTENDING PHYSICIAN STATEMENT I saw and evaluated the patient. I reviewed the resident's note and discussed the case with the resident. I agree with the resident's findings and plan as documented. SUBJECTIVE: Patient denies having any fever or chills, no shortness of breath. OBJECTIVE: Vital Signs Temperature 98.5 F 03/06/20 15:00 Pulse Rate 76 03/06/20 15:00 Respiratory Rate 20 03/06/20 15:00 Blood Pressure 158/73 03/06/20 15:00 O2 Sat by Pulse Oximetry (%) 96 03/06/20 15:00 PE: per resident's note CBCD WBC 8.9 K/mm3 (4.0-10.0) 03/06/20 10:45 RBC 2.81 M/mm3 (4.00-5.60) L 03/06/20 10:45 Hgb 8.9 GM/dL (11.7-16.9) L 03/06/20 10:45 Hct 26.2 % (35.4-49) L 03/06/20 10:45 MCV 93.3 fl (80-96) 03/06/20 10:45 MCHC 33.8 g/dl (32.0-35.9) 03/06/20 10:45 RDW 14.8 % (11.9-15.9) 03/06/20 10:45 Plt Count 169 K/MM3 (134-434) 03/06/20 10:45 MPV 8.1 fl (7.5-11.1) 03/06/20 10:45 CMP Sodium 140 mmol/L (136-145) 03/06/20 10:45 Potassium 5.4 mmol/L (3.5-5.1) H 03/06/20 10:45 Chloride 110 mmol/L (98-107) H 03/06/20 10:45 Carbon Dioxide 25 mmol/L (21-32) 03/06/20 10:45 Anion Gap 5 MMOL/L (8-16) L 03/06/20 10:45 BUN 85.5 mg/dL (7-18) H 03/06/20 10:45 Creatinine 4.4 mg/dL (0.55-1.3) H 03/06/20 10:45 Random Glucose 117 mg/dL (74-106) H 03/06/20 10:45 Calcium 9.3 mg/dL (8.5-10.1) 03/06/20 10:45 Total Bilirubin 0.5 mg/dL (0.2-1) 03/06/20 10:45 AST 13 U/L (15-37) L 03/06/20 10:45 ALT 19 U/L (13-61) 03/06/20 10:45 Alkaline Phosphatase 90 U/L (45-117) 03/06/20 10:45 Total Protein 6.9 g/dl (6.4-8.2) 03/06/20 10:45 Albumin 3.2 g/dl (3.4-5.0) L 03/06/20 10:45 CARDIAC ENZYMES Creatine Kinase 232 U/L (26-308) 03/05/20 19:59 Troponin I 0.02 ng/ml (0.00-0.05) 03/06/20 04:30 Current Medications Generic Name Dose Route Start Last Admin Trade Name [facility] PRN Reason Stop Dose Admin Aspirin 81 mg 03/06/20 04:09 03/06/20 04:16 Asa - PO 81 mg HS [facility]INCITO Administration Atorvastatin Calcium 80 mg 03/06/20 22:00 Lipitor - PO HS [facility]O Carvedilol 25 mg 03/06/20 10:00 03/06/20 11:33 Coreg - PO 25 mg BID [facility]O Administration Ferrous Sulfate 325 mg 03/06/20 10:00 03/06/20 11:33 Feosol - PO 325 mg DAILY [facility] Administration Cefazolin Sodium 500 mg/ 50 mls @ 100 mls/hr 03/06/20 10:45 03/06/20 18:01 Dextrose IVPB 100 mls/hr Q8H-IV [facility] Administration Insulin Aspart 1 vial 03/06/20 07:00 03/06/20 17:08 Novolog Vial Sliding Scale - SQ Not Given ACHS [facility] Protocol Nitroglycerin 0.4 mg 03/06/20 04:09 03/06/20 04:16 Nitrostat - SL 0.4 mg [id number] PRN Administration CHEST PAIN Oxycodone HCl 10 mg 03/06/20 10:21 03/06/20 14:50 Roxicodone - PO 10 mg Q4H PRN Administration PAIN LEVEL 4 - 6 Oxycodone HCl 15 mg 03/06/20 22:00 Oxycontin - PO BID [facility] Silver Sulfadiazine 1 applic 03/06/20 14:34 Silvadene - TP DAILY [facility] Sodium Zirconium Cyclosilicate 10 gm 03/06/20 14:27 Lokelma PO DAILY [facility] Torsemide 40 mg 03/06/20 10:00 03/06/20 11:33 Demadex - PO 40 mg BID [facility] Administration Home Medications Medication Instructions Recorded Aspirin [ASA -] 81 mg PO HS 09/20/15 Atorvastatin Ca [Lipitor] 80 mg PO HS 09/20/15 Carvedilol 25 mg PO BID 09/20/15 Nitroglycerin Sublingual 0.4 mg SL [id number] PRN #30 tab 10/07/16 [Nitrostat -] Multivit-Min/FA/Lycopen/Lutein 1 each PO DAILY 11/22/17 [Centrum Silver Men Tablet] Nitroglycerin Patch [Nitro-Dur 0.4 mg TD HS 11/22/17 Patch -] Ferrous Sulfate [Iron] 325 mg PO DAILY 07/27/18 Ascorbic Acid [Vitamin C -] 500 mg PO DAILY tablet 09/15/18 Sitagliptin Phosphate [Januvia] 50 mg PO DAILY 02/08/19 Torsemide [Demadex -] 40 mg PO AM 03/05/20 oxyCODONE HCL [Roxicodone -] 10 mg PO Q4H PRN MDD 4 03/05/20 oxyCODONE SR [Oxycontin] 5 mg PO Q6H PRN 03/06/20 oxyCODONE SR [Oxycontin] 15 mg PO BID 03/06/20 ASSESSMENT AND PLAN: This patient is a 69yom with PMHx CAD s/p CABG, CKD, diabetes, HFpEF, testiclar cancer (remission), chronic pain. Sent by PCP due to hyperkalemia, elevated Cr and cellulitis. # Hyperkalemia: oN lOkelma , nephro on consult # Acute bl Cellulitis: on IV antibiotics , pcn allergy, empiric cefazolin as per ID # HTN uncontrolled # Diabetes: Uncontrolled # Anemia: H/H is stable # Covid r/o #Class 3 obesity DVT px: West bandage , Heparin sq
--- NOTE | 2020-03-06 20:09 | PN ---
Physical Exam: SUBJECTIVE: Patient seen and examined bedside. Upset about being the hospital and wants to go home. OBJECTIVE: Vital Signs Period Temp Pulse Resp BP Sys/Guo Pulse Ox Last 24 Hr 98.0 F-99.1 F 73-90 16-20 134-175/57-83 95-100 GENERAL: The patient is awake, alert, and fully oriented, in pain HEAD: Normal with no signs of trauma. EYES: PERRL, extraocular movements intact LUNGS: Decreased breath sounds BL HEART: Regular rate and rhythm ABDOMEN: Soft, obese, tender to palpation on LLQ EXTREMITIES: 3+ pitting edema with BL red warm shins. R wallis has bullous lesions. BL venous stasis skin changes on feet/ankles PSYCH: depressed mood, made us aware her was DNR/DNI multiple times and how he has already (coded) multiple times. Laboratory Results - last 24 hr 03/05/20 03/05/20 03/05/20 19:57 19:59 19:59 WBC 10.1 H Corrected WBC (auto) RBC 3.11 L Hgb 9.7 L Hct 29.2 L MCV 93.9 MCH 31.3 MCHC 33.3 RDW 14.7 Plt Count 183 D MPV 8.3 Absolute Neuts (auto) 7.1 Neutrophils % 70.4 Lymphocytes % 16.7 Monocytes % 8.6 Eosinophils % 3.5 Basophils % 0.8 Nucleated RBC % 0 Manual Slide Review Platelet Comment PT with INR 11.80 INR 1.00 PTT (Actin FS) 30.9 Sodium Potassium Chloride Carbon Dioxide Anion Gap BUN Creatinine Est GFR (CKD-EPI)AfAm Est GFR (CKD-EPI)NonAf POC Glucometer Random Glucose Calcium Phosphorus Magnesium Iron TIBC Iron Saturation Unsaturated IBC Total Bilirubin AST ALT Alkaline Phosphatase Creatine Kinase Creatine Kinase Index CK-MB (CK-2) Troponin I Total Protein Albumin Blood Type A POSITIVE Antibody Screen Negative 03/05/20 03/05/20 03/06/20 19:59 21:22 04:30 WBC Corrected WBC (auto) RBC Hgb Hct MCV MCH MCHC RDW Plt Count MPV Absolute Neuts (auto) Neutrophils % Lymphocytes % Monocytes % Eosinophils % Basophils % Nucleated RBC % Manual Slide Review Platelet Comment PT with INR INR PTT (Actin FS) Sodium 142 144 142 Potassium 6.6 H* 6.0 H 5.7 H Chloride 112 H 112 H 113 H Carbon Dioxide 22 23 20 L Anion Gap 8 8 8 BUN 87.4 H 88.2 H 86.7 H Creatinine 4.5 H 4.7 H 4.4 H Est GFR (CKD-EPI)AfAm 14.48 13.74 14.88 Est GFR (CKD-EPI)NonAf 12.49 11.85 12.84 POC Glucometer Random Glucose 157 H 170 H 145 H Calcium 9.2 9.5 8.9 Phosphorus Magnesium 2.9 H Iron TIBC Iron Saturation Unsaturated IBC Total Bilirubin 0.4 AST 26 ALT 24 Alkaline Phosphatase 84 Creatine Kinase 232 Creatine Kinase Index 1.7 CK-MB (CK-2) 4.0 H Troponin I < 0.02 0.02 Total Protein 7.3 Albumin 3.4 Blood Type Antibody Screen 03/06/20 03/06/20 03/06/20 06:43 07:19 07:19 WBC Cancelled Corrected WBC (auto) Cancelled RBC Cancelled Hgb Cancelled Hct Cancelled MCV Cancelled MCH Cancelled MCHC Cancelled RDW Cancelled Plt Count Cancelled MPV Cancelled Absolute Neuts (auto) Neutrophils % Lymphocytes % Monocytes % Eosinophils % Basophils % Nucleated RBC % Manual Slide Review Cancelled Platelet Comment Cancelled PT with INR INR PTT (Actin FS) Sodium 123 L Potassium 4.7 Chloride 93 L Carbon Dioxide 18 L Anion Gap 13 BUN 73.2 H Creatinine 4.0 H Est GFR (CKD-EPI)AfAm 16.70 Est GFR (CKD-EPI)NonAf 14.41 POC Glucometer 121 Random Glucose 648 H* Calcium > 15.0 H* Phosphorus 4.4 Magnesium 2.2 Iron 38 L TIBC 162 L Iron Saturation 23 Unsaturated IBC 124 L Total Bilirubin AST ALT Alkaline Phosphatase Creatine Kinase Creatine Kinase Index CK-MB (CK-2) Troponin I Total Protein Albumin Blood Type Antibody Screen 03/06/20 03/06/20 03/06/20 10:45 10:45 11:37 WBC 8.9 Corrected WBC (auto) RBC 2.81 L Hgb 8.9 L Hct 26.2 L MCV 93.3 MCH 31.6 MCHC 33.8 RDW 14.8 Plt Count 169 MPV 8.1 Absolute Neuts (auto) 6.2 Neutrophils % 69.8 Lymphocytes % 17.1 Monocytes % 9.5 Eosinophils % 3.2 Basophils % 0.4 Nucleated RBC % 0 Manual Slide Review Platelet Comment PT with INR INR PTT (Actin FS) Sodium 140 Potassium 5.4 H Chloride 110 H Carbon Dioxide 25 Anion Gap 5 L BUN 85.5 H Creatinine 4.4 H Est GFR (CKD-EPI)AfAm 14.88 Est GFR (CKD-EPI)NonAf 12.84 POC Glucometer 129 Random Glucose 117 H Calcium 9.3 Phosphorus 5.2 H Magnesium 2.7 H Iron TIBC Iron Saturation Unsaturated IBC Total Bilirubin 0.5 AST 13 L ALT 19 Alkaline Phosphatase 90 Creatine Kinase Creatine Kinase Index CK-MB (CK-2) Troponin I Total Protein 6.9 Albumin 3.2 L Blood Type Antibody Screen 03/06/20 16:56 WBC Corrected WBC (auto) RBC Hgb Hct MCV MCH MCHC RDW Plt Count MPV Absolute Neuts (auto) Neutrophils % Lymphocytes % Monocytes % Eosinophils % Basophils % Nucleated RBC % Manual Slide Review Platelet Comment PT with INR INR PTT (Actin FS) Sodium Potassium Chloride Carbon Dioxide Anion Gap BUN Creatinine Est GFR (CKD-EPI)AfAm Est GFR (CKD-EPI)NonAf POC Glucometer 196 Random Glucose Calcium Phosphorus Magnesium Iron TIBC Iron Saturation Unsaturated IBC Total Bilirubin AST ALT Alkaline Phosphatase Creatine Kinase Creatine Kinase Index CK-MB (CK-2) Troponin I Total Protein Albumin Blood Type Antibody Screen Active Medications Generic Name Dose Route Start Last Admin Trade Name Freq PRN Reason Stop Dose Admin Aspirin 81 mg 03/06/20 04:09 03/06/20 04:16 Asa - PO 81 mg HS [facility] Administration Atorvastatin Calcium 80 mg 03/06/20 22:00 Lipitor - PO HS [facility] Carvedilol 25 mg 03/06/20 10:00 03/06/20 11:33 Coreg - PO 25 mg BID [facility] Administration Ferrous Sulfate 325 mg 03/06/20 10:00 03/06/20 11:33 Feosol - PO 325 mg DAILY [facility] Administration Heparin Sodium (Porcine) 5,000 unit 03/06/20 22:00 Heparin - SQ TID COUNTS INCLUDE 234 BEDS AT THE [facility] Cefazolin Sodium 500 mg/ 50 mls @ 100 mls/hr 03/06/20 10:45 03/06/20 18:01 Dextrose IVPB 100 mls/hr Q8H-IV [facility] Administration Insulin Aspart 1 vial 03/06/20 07:00 03/06/20 17:08 Novolog Vial Sliding Scale - SQ Not Given ACHS COUNTS INCLUDE 234 BEDS AT THE [facility] Protocol Nitroglycerin 0.4 mg 03/06/20 04:09 03/06/20 04:16 Nitrostat - SL 0.4 mg [id number] PRN Administration CHEST PAIN Oxycodone HCl 10 mg 03/06/20 10:21 03/06/20 18:51 Roxicodone - PO 10 mg Q4H PRN Administration PAIN LEVEL 4 - 6 Oxycodone HCl 15 mg 03/06/20 22:00 Oxycontin - PO BID COUNTS INCLUDE 234 BEDS AT THE [facility] Silver Sulfadiazine 1 applic 03/06/20 14:34 Silvadene - TP DAILY COUNTS INCLUDE 234 BEDS AT THE [facility] Sodium Zirconium Cyclosilicate 10 gm 03/06/20 14:27 Lokelma PO DAILY [facility] Torsemide 40 mg 03/06/20 10:00 03/06/20 11:33 Demadex - PO 40 mg BID [facility]OT Administration ASSESSMENT/PLAN: 69 y.o. M PMHx CAD s/p CABG, CKD, diabetes, HFpEF, testiclar cancer with extensive lymph dissection surgery (remission), multiple back surgeries and chronic pain. Sent by PCP due to hyperkalemia, elevated Cr and cellulitis that failed treatment to oral bactrim x10 days [address] Nair (nephro) outpatient. Hyperkalemia 2/2 CKD - K of 6 on admission - improving - Nephro consult (Dr. Alatorre) cont torsemide cont Lokelma pt still does not want HD BL LE Cellulitis - 2/2 - Leukocytosis on admission - Dr. Bartlett consulted for ID IV Cefazolin started Silvadene applied to area daily and legs to be wrapped in emanuel bandages Poorly controlled pain 2/2 hx cancer, multiple back surgeries -Patient on extensive pain regimen at home -according to and pharmacy patient has 2 different Oxycotin scripts (see home meds) and and oxycodone script. -according to patient he's been on palliative care before (hence his pain regimen) but was declined continue care because "he didn't " -Spoke with Dr. Kurtz today because he sometimes provides his pain meds, he could not confirm the extra oxycotin 5mg PRN prescription - consider pain management consult/or re-consult palliative HTN - Coreg 12.5mg po once - Continue home dose of coreg 25mg BID DM - Monitor BGM - Sliding scale FEN - Encourage oral hydration - Diabetic/sodium controlled diet DVT Prophylaxis - Mechanical A/C - Hold medical a/c due to CKD Visit type - Emergency Visit Emergency Visit: Yes ED Registration Date: 03/05/20 Care time: The patient presented to the Emergency Department on the above date and was hospitalized for further evaluation of their emergent condition. - New Patient This patient is new to me today: Yes Date on this admission: 03/08/20 - Critical Care Critical Care patient: No - Discharge Referral Referred to [facility] Yes Physician Referral: Malcolm Paulino DO (Neph) ATTENDING PHYSICIAN STATEMENT I saw and evaluated the patient. I reviewed the resident's note and discussed the case with the resident. I agree with the resident's findings and plan as documented. SUBJECTIVE: OBJECTIVE: ASSESSMENT AND PLAN:
[2020-03-06 20:12] VITALS: BP 159/66; PULSE 78; TEMP 98.9
[2020-03-06] MEDS: HEPARIN NA (PORCINE) 5,000 UNITS/ML 1ML VIAL SQ SCH ×2 (21:24→21:25)
[2020-03-06] MEDS ORDERED: ATORVASTATIN CA 80 MG TABLET (FP) PO SCH (22:00)
[2020-03-06] MEDS ORDERED: oxyCODONE HCL 10 MG SUSTAINED ACTING TABLET PO SCH (22:00)
[2020-03-07] MEDS ORDERED: MELATONIN 5 MG TABLETS PO SCH (00:23)
[2020-03-07] MEDS: oxyCODONE HCL 5 MG TABLET PO PRN ×3 (00:30→09:21)
[2020-03-07] MEDS ORDERED: oxyCODONE HCL 5 MG TABLET PO ONE (00:47)
[2020-03-07] MEDS: CEFAZOLIN 500 MG in DEXTROSE 5%-WATER - 50 ML IVPB SCH ×2 (01:04→09:20)
[2020-03-07] MEDS: HEPARIN NA (PORCINE) 5,000 UNITS/ML 1ML VIAL SQ SCH ×2 (06:07→13:02)
[2020-03-07] MEDS: INSULIN SLIDING SCALE (NOVOLOG) 1 VIAL SQ SCH ×2 (06:12→11:45)
[2020-03-07] MEDS ORDERED: PT OWN MED DRAWER 7, Y5N ONE (09:05)
[2020-03-07] MEDS: CARVEDILOL 25 MG TABLET (FP) PO SCH (09:20)
[2020-03-07] MEDS: TORSEMIDE 20 MG TABLET (FP) PO SCH (09:21)
[2020-03-07] MEDS: FERROUS SO4 325 MG TABLET (FP) PO SCH (09:22)
--- NOTE | 2020-03-07 10:43 | PN ---
Progress Note (short form) - Note Progress Note: Vital Signs Temperature 98.9 F 03/06/20 20:08 Pulse Rate 78 03/06/20 20:08 Respiratory Rate 20 03/06/20 20:08 Blood Pressure 159/66 03/06/20 20:08 O2 Sat by Pulse Oximetry (%) 96 03/06/20 20:49 GENERAL: The patient is awake, alert, and fully oriented, in no acute distress. HEAD: Normal with no signs of trauma. EYES: PERRL, extraocular movements intact, sclera anicteric, conjunctiva clear. ENT: Ears normal, oropharynx clear without exudates, moist mucous membranes. NECK: Trachea midline, full range of motion, supple. LUNGS: Breath sounds equal, clear to auscultation bilaterally, no wheezes, no crackles, no accessory muscle use. HEART: Regular rate and rhythm, S1, S2 without murmur, rub or gallop. ABDOMEN: Soft, nontender, nondistended, normoactive bowel sounds, no guarding, no rebound, no hepatosplenomegaly, no masses. EXTREMITIES: 2+ pulses, warm, well-perfused, no edema. NEUROLOGICAL: Cranial nerves II through XII grossly intact. Normal speech, gait not observed. PSYCH: Normal mood, normal affect. SKIN: Warm, dry, normal turgor, no rashes or lesions noted CBCD WBC 8.9 K/mm3 (4.0-10.0) 03/06/20 10:45 RBC 2.81 M/mm3 (4.00-5.60) L 03/06/20 10:45 Hgb 8.9 GM/dL (11.7-16.9) L 03/06/20 10:45 Hct 26.2 % (35.4-49) L 03/06/20 10:45 MCV 93.3 fl (80-96) 03/06/20 10:45 MCHC 33.8 g/dl (32.0-35.9) 03/06/20 10:45 RDW 14.8 % (11.9-15.9) 03/06/20 10:45 Plt Count 169 K/MM3 (134-434) 03/06/20 10:45 MPV 8.1 fl (7.5-11.1) 03/06/20 10:45 CMP Sodium 140 mmol/L (136-145) 03/06/20 10:45 Potassium 5.4 mmol/L (3.5-5.1) H 03/06/20 10:45 Chloride 110 mmol/L (98-107) H 03/06/20 10:45 Carbon Dioxide 25 mmol/L (21-32) 03/06/20 10:45 Anion Gap 5 MMOL/L (8-16) L 03/06/20 10:45 BUN 85.5 mg/dL (7-18) H 03/06/20 10:45 Creatinine 4.4 mg/dL (0.55-1.3) H 03/06/20 10:45 Random Glucose 117 mg/dL (74-106) H 03/06/20 10:45 Calcium 9.3 mg/dL (8.5-10.1) 03/06/20 10:45 Total Bilirubin 0.5 mg/dL (0.2-1) 03/06/20 10:45 AST 13 U/L (15-37) L 03/06/20 10:45 ALT 19 U/L (13-61) 03/06/20 10:45 Alkaline Phosphatase 90 U/L (45-117) 03/06/20 10:45 Total Protein 6.9 g/dl (6.4-8.2) 03/06/20 10:45 Albumin 3.2 g/dl (3.4-5.0) L 03/06/20 10:45 CARDIAC ENZYMES Creatine Kinase 232 U/L (26-308) 03/05/20 19:59 Troponin I 0.02 ng/ml (0.00-0.05) 03/06/20 04:30 Current Medications Generic Name Dose Route Start Last Admin Trade Name Freq PRN Reason Stop Dose Admin Aspirin 81 mg 03/06/20 04:09 03/06/20 21:23 Asa - PO 81 mg HS [facility]O Administration Atorvastatin Calcium 80 mg 03/06/20 22:00 03/06/20 21:23 Lipitor - PO 80 mg HS [facility]O Administration Carvedilol 25 mg 03/06/20 10:00 03/07/20 09:20 Coreg - PO Not Given BID [facility] Ferrous Sulfate 325 mg 03/06/20 10:00 03/07/20 09:22 Feosol - PO Not Given DAILY [facility] Heparin Sodium (Porcine) 5,000 unit 03/06/20 22:00 03/07/20 06:07 Heparin - SQ Not Given TID [facility] Cefazolin Sodium 500 mg/ 50 mls @ 100 mls/hr 03/06/20 10:45 03/07/20 09:20 Dextrose IVPB Not Given Q8H-IV [facility] Insulin Aspart 1 vial 03/06/20 07:00 03/07/20 06:12 Novolog Vial Sliding Scale - SQ Not Given ACHS [facility] Protocol Melatonin 10 mg 03/07/20 00:23 03/07/20 00:53 Melatonin PO Not Given HS [facility] Nitroglycerin 0.4 mg 03/06/20 04:09 03/06/20 04:16 Nitrostat - SL 0.4 mg [id number] PRN Administration CHEST PAIN Oxycodone HCl 10 mg 03/06/20 10:21 03/07/20 09:21 Roxicodone - PO 10 mg Q4H PRN Administration PAIN LEVEL 4 - 6 Oxycodone HCl 15 mg 03/06/20 22:00 Oxycontin - PO BID [facility] Silver Sulfadiazine 1 applic 03/06/20 14:34 03/07/20 09:20 Silvadene - TP Not Given DAILY [facility] Sodium Zirconium Cyclosilicate 10 gm 03/06/20 14:27 03/07/20 09:21 Lokelma PO Not Given DAILY [facility] Torsemide 40 mg 03/06/20 10:00 03/07/20 09:21 Demadex - PO Not Given BID [facility] ASSESSMENT AND PLAN: This patient is a 69yom with PMHx CAD s/p CABG, CKD, diabetes, HFpEF, testiclar cancer (remission), chronic pain. Sent by PCP due to hyperkalemia, elevated Cr and cellulitis. # Hyperkalemia: oN lOkelma 10mg continue and trend # Acute bl Cellulitis: on IV antibiotics , pcn allergy, empiric cefazolin as per ID # HTN Uncontrolled: # Diabetes: Uncontrolled # Anemia # Covid r/o #Class 3 obesity DVT px: West bandage , Heparin sq
--- NOTE | 2020-03-07 12:00 | DS ---
Physical Examination Vital Signs: Patient is comfortable , wants to go home. Vital Signs Temperature 98.9 F 03/06/20 20:08 Pulse Rate 78 03/06/20 20:08 Respiratory Rate 20 03/07/20 09:00 Blood Pressure 159/66 03/06/20 20:08 O2 Sat by Pulse Oximetry (%) 96 03/07/20 09:00 GENERAL: The patient is awake, alert, and fully oriented, in no acute distress. HEAD: Normal with no signs of trauma. EYES: PERRL, extraocular movements intact, sclera anicteric, conjunctiva clear. ENT: Ears normal, oropharynx clear without exudates, moist mucous membranes. NECK: Trachea midline, full range of motion, supple. LUNGS: decreased BS BL , no wheezes, no crackles, no accessory muscle use. HEART: Regular rate and rhythm, S1, S2+, KATERINA 2/6 no rub or gallop. ABDOMEN: Soft, large abdomen, nondistended, normoactive bowel sounds, no guarding, no rebound, no hepatosplenomegaly, no masses. EXTREMITIES: 2+ pulses, warm, 4 plus edema BL, LLE cellulitis with bullous formation, RLE improving NEUROLOGICAL: Cranial nerves II through XII grossly intact. Normal speech, gait is stable. PSYCH: Normal mood, normal affect. SKIN: Warm, dry, normal turgor, LE cellulitis L>R with bullous formation on the left leg CBCD WBC 8.9 K/mm3 (4.0-10.0) 03/06/20 10:45 RBC 2.81 M/mm3 (4.00-5.60) L 03/06/20 10:45 Hgb 8.9 GM/dL (11.7-16.9) L 03/06/20 10:45 Hct 26.2 % (35.4-49) L 03/06/20 10:45 MCV 93.3 fl (80-96) 03/06/20 10:45 MCHC 33.8 g/dl (32.0-35.9) 03/06/20 10:45 RDW 14.8 % (11.9-15.9) 03/06/20 10:45 Plt Count 169 K/MM3 (134-434) 03/06/20 10:45 MPV 8.1 fl (7.5-11.1) 03/06/20 10:45 CMP Sodium 140 mmol/L (136-145) 03/06/20 10:45 Potassium 5.4 mmol/L (3.5-5.1) H 03/06/20 10:45 Chloride 110 mmol/L (98-107) H 03/06/20 10:45 Carbon Dioxide 25 mmol/L (21-32) 03/06/20 10:45 Anion Gap 5 MMOL/L (8-16) L 03/06/20 10:45 BUN 85.5 mg/dL (7-18) H 03/06/20 10:45 Creatinine 4.4 mg/dL (0.55-1.3) H 03/06/20 10:45 Random Glucose 117 mg/dL (74-106) H 03/06/20 10:45 Calcium 9.3 mg/dL (8.5-10.1) 03/06/20 10:45 Total Bilirubin 0.5 mg/dL (0.2-1) 03/06/20 10:45 AST 13 U/L (15-37) L 03/06/20 10:45 ALT 19 U/L (13-61) 03/06/20 10:45 Alkaline Phosphatase 90 U/L (45-117) 03/06/20 10:45 Total Protein 6.9 g/dl (6.4-8.2) 03/06/20 10:45 Albumin 3.2 g/dl (3.4-5.0) L 03/06/20 10:45 CARDIAC ENZYMES Creatine Kinase 232 U/L (26-308) 03/05/20 19:59 Troponin I 0.02 ng/ml (0.00-0.05) 03/06/20 04:30 Current Medications Generic Name Dose Route Start Last Admin Trade Name Freq PRN Reason Stop Dose Admin Aspirin 81 mg 03/06/20 04:09 03/06/20 21:23 Asa - PO 81 mg HS [facility] Administration Atorvastatin Calcium 80 mg 03/06/20 22:00 03/06/20 21:23 Lipitor - PO 80 mg HS [facility] Administration Carvedilol 25 mg 03/06/20 10:00 03/07/20 09:20 Coreg - PO Not Given BID [facility] Ferrous Sulfate 325 mg 03/06/20 10:00 03/07/20 09:22 Feosol - PO Not Given DAILY [facility] Heparin Sodium (Porcine) 5,000 unit 03/06/20 22:00 03/07/20 06:07 Heparin - SQ Not Given TID [facility] Cefazolin Sodium 500 mg/ 50 mls @ 100 mls/hr 03/06/20 10:45 03/07/20 09:20 Dextrose IVPB Not Given Q8H-IV [facility] Insulin Aspart 1 vial 03/06/20 07:00 03/07/20 06:12 Novolog Vial Sliding Scale - SQ Not Given ACHS [facility] Protocol Melatonin 10 mg 03/07/20 00:23 03/07/20 00:53 Melatonin PO Not Given [facility] Nitroglycerin 0.4 mg 03/06/20 04:09 03/06/20 04:16 Nitrostat - SL 0.4 mg [id number] PRN Administration CHEST PAIN Oxycodone HCl 10 mg 03/06/20 10:21 03/07/20 09:21 Roxicodone - PO 10 mg Q4H PRN Administration PAIN LEVEL 4 - 6 Oxycodone HCl 15 mg 03/06/20 22:00 Oxycontin - PO BID [facility] Silver Sulfadiazine 1 applic 03/06/20 14:34 03/07/20 09:20 Silvadene - TP Not Given DAILY [facility] Sodium Zirconium Cyclosilicate 10 gm 03/06/20 14:27 03/07/20 09:21 Lokelma PO Not Given DAILY [facility] Torsemide 40 mg 03/06/20 10:00 03/07/20 09:21 Demadex - PO Not Given BID [facility] Home Medications Medication Instructions Recorded Aspirin [ASA -] 81 mg PO HS 09/20/15 Atorvastatin Ca [Lipitor] 80 mg PO HS 09/20/15 Carvedilol 25 mg PO BID 09/20/15 Nitroglycerin Sublingual 0.4 mg SL [id number] PRN #30 tab 10/07/16 [Nitrostat -] Multivit-Min/FA/Lycopen/Lutein 1 each PO DAILY 11/22/17 [Centrum Silver Men Tablet] Nitroglycerin Patch [Nitro-Dur 0.4 mg TD HS 11/22/17 Patch -] Ferrous Sulfate [Iron] 325 mg PO DAILY 07/27/18 Ascorbic Acid [Vitamin C -] 500 mg PO DAILY tablet 09/15/18 Sitagliptin Phosphate [Januvia] 50 mg PO DAILY 02/08/19 Torsemide [Demadex -] 40 mg PO AM 03/05/20 oxyCODONE HCL [Roxicodone -] 10 mg PO Q4H PRN MDD 4 03/05/20 oxyCODONE SR [Oxycontin] 5 mg PO Q6H PRN 03/06/20 oxyCODONE SR [Oxycontin] 15 mg PO BID 03/06/20 Cephalexin Monohydrate [Keflex -] 500 mg PO BID #14 capsule 03/07/20 Silver Sulfadiazine 1% Top Cr 1 applic TP DAILY #1 jar 03/07/20 [Silvadene -] Sodium Zirconium Cyclosilicate 10 gm PO DAILY #7 packet 03/07/20 [Lokelma] ASSESSMENT AND PLAN: This patient is a 69yom with PMHx CAD s/p CABG, CKD, diabetes, HFpEF, testiclar cancer (remission), chronic pain. Sent by PCP due to hyperkalemia, elevated Cr and cellulitis. # Hyperkalemia: oN lOkelma 10mg continue , given for 7 days , discussed with dr Ruiz , agreed to give for 7 days, and f/u with DR Paulino wiTHIN A WEEK # Acute bl Cellulitis: L>R s/p IV antibiotics cefazolin will dc him with oral keflex 500mg po bid x [address] Bartlett,ID , pcn allergy, PRESCRIBED SILVADENE CREAm and to wrap his legs with silvadene cream. # HTN Uncontrolled: continue home meds # Diabetes:controlled # Anemia h/h stable # Covid r/o #Class 3 obesity dc patient home. as per patient , wants to go home. does not want anything else, wants to be comfortable . Labs: CBC, BMP 03/06/20 10:45 03/06/20 10:45 Discharge Summary Problems reviewed: Yes Reason For Visit: CELLULITIS OF LOWER EXTREMITY, ACUTE RENAL FAILURE Current Active Problems Hyperkalemia (Acute) Condition: Good - Instructions Diet, Activity, Other Instructions: Low Fat ,low potassium and low phosphorus diet. Please follow up with Dr Malcolm Paulino within a week period. Please follow up with Dr Bartlett ; infectious disease doctor for your lower extremity infection. we prescribed you Keflex 500mg orally 2 times per day for 7 days. Given you Lokelma 10mg orally daily for 7 days, to lower your potassium level , follow up with DR Paulino within a week period. Added silvadene cream to your lower extremity and wrap it with the emanuel-bandage and elevate your lower extremities. Referrals: German Kurtz MD [Primary Care Provider] - 1 Week Malcolm Paulino MD [Staff Physician] - 1 Week Homer Bartlett MD [Staff Physician] - 1 Week Disposition: HOME - Home Medications Comprehensive Discharge Medication List: Ambulatory Orders Aspirin [ASA -] 81 mg PO HS 09/20/15 Atorvastatin Ca [Lipitor] 80 mg PO HS 09/20/15 Carvedilol 25 mg PO BID 09/20/15 Nitroglycerin Sublingual [Nitrostat -] 0.4 mg SL [id number] PRN #30 tab 10/07/16 Multivit-Min/FA/Lycopen/Lutein [Centrum Silver Men Tablet] 1 each PO DAILY 11/22/17 Nitroglycerin Patch [Nitro-Dur Patch -] 0.4 mg TD HS 11/22/17 Ferrous Sulfate [Iron] 325 mg PO DAILY 07/27/18 Ascorbic Acid [Vitamin C -] 500 mg PO DAILY tablet 09/15/18 Sitagliptin Phosphate [Januvia] 50 mg PO DAILY 02/08/19 Torsemide [Demadex -] 40 mg PO AM 03/05/20 oxyCODONE HCL [Roxicodone -] 10 mg PO Q4H PRN MDD 4 03/05/20 oxyCODONE SR [Oxycontin] 5 mg PO Q6H PRN 03/06/20 oxyCODONE SR [Oxycontin] 15 mg PO BID 03/06/20 Cephalexin Monohydrate [Keflex -] 500 mg PO BID #14 capsule 03/07/20 Silver Sulfadiazine 1% Top Cr [Silvadene -] 1 applic TP DAILY #1 jar 03/07/20 Sodium Zirconium Cyclosilicate [Lokelma] 10 gm PO DAILY #7 packet 03/07/20 This patient is new to me today: No Emergency Visit: Yes ED Registration Date: 03/05/20 Care time: The patient presented to the Emergency Department on the above date and was hospitalized for further evaluation of their emergent condition. Critical Care patient: No - Discharge Referral Referred to [facility] No
--- NOTE | 2020-03-07 12:05 | PN ---
Progress Note, Physician History of Present Illness: NO C/O LEG PAIN NO FEVER/ CHILLS BC (-) - Current Medication List Current Medications: Active Medications Aspirin (Asa -) 81 mg PO [facility] Last Admin: 03/06/20 21:23 Dose: 81 mg Documented by: Atorvastatin Calcium (Lipitor -) 80 mg PO HS [facility] Last Admin: 03/06/20 21:23 Dose: 80 mg Documented by: Carvedilol (Coreg -) 25 mg PO BID [facility] Last Admin: 03/07/20 09:20 Dose: Not Given Documented by: Ferrous Sulfate (Feosol -) 325 mg PO DAILY [facility] Last Admin: 03/07/20 09:22 Dose: Not Given Documented by: Heparin Sodium (Porcine) (Heparin -) 5,000 unit SQ TID [facility] Last Admin: 03/07/20 06:07 Dose: Not Given Documented by: Cefazolin Sodium 500 mg/ (Dextrose) 50 mls @ 100 mls/hr IVPB Q8H-IV [facility] Last Admin: 03/07/20 09:20 Dose: Not Given Documented by: Insulin Aspart (Novolog Vial Sliding Scale -) [facility]; Protocol Last Admin: 03/07/20 11:45 Dose: Not Given Documented by: Melatonin (Melatonin) 10 mg PO [facility] Last Admin: 03/07/20 00:53 Dose: Not Given Documented by: Nitroglycerin (Nitrostat -) 0.4 mg SL [id number] PRN PRN Reason: CHEST PAIN Last Admin: 03/06/20 04:16 Dose: 0.4 mg Documented by: Oxycodone HCl (Roxicodone -) 10 mg PO Q4H PRN PRN Reason: PAIN LEVEL 4 - 6 Last Admin: 03/07/20 09:21 Dose: 10 mg Documented by: Oxycodone HCl (Oxycontin -) 15 mg PO BID [facility] Silver Sulfadiazine (Silvadene -) 1 applic TP DAILY [facility] Last Admin: 03/07/20 09:20 Dose: Not Given Documented by: Sodium Zirconium Cyclosilicate (Lokelma) 10 gm PO DAILY [facility] Last Admin: 03/07/20 09:21 Dose: Not Given Documented by: Torsemide (Demadex -) 40 mg PO BID [facility] Last Admin: 03/07/20 09:21 Dose: Not Given Documented by: - Objective Vital Signs: Vital Signs Temperature 98.9 F 03/06/20 20:08 Pulse Rate 78 03/06/20 20:08 Respiratory Rate 20 03/07/20 09:00 Blood Pressure 159/66 03/06/20 20:08 O2 Sat by Pulse Oximetry (%) 96 03/07/20 09:00 Constitutional: Yes: Obese Extremities: Yes: Other (ERYTHEMA L LE NEARLY ALL RESOLVED; R LE ERYTHEMA IMPROVED; + INTACT BLISTER) Edema: Yes Edema: LLE: 2+, RLE: 2+ Labs: CBC, BMP 03/06/20 10:45 03/06/20 10:45 INR, PTT INR 1.00 (0.83-1.09) 03/05/20 19:59 Assessment/Plan CELLULITIS LE BILATERALLY AZOTEMIA SUBSTITUTUE KEFLEX 500MG PO BID X 7-10D OUTPATIENT FOLLOW UP
== END 2020-03-07 14:29 | disposition home or self-care (01) | DRG 292 ==
LOC: JER 18:48 → JERBED 22:14 → J6S 03-06 01:21
PROVIDERS: ADMIT Internal Medicine; ATTEND Internal Medicine
DX: I13.0 Hypertensive heart and chronic kidney disease with heart failure and stage 1 through stage 4 chronic kidney disease, or unspecified chronic kidney disease (principal); I50.32 Chronic diastolic (congestive) heart failure; L03.116 Cellulitis of left lower limb; L03.115 Cellulitis of right lower limb; E87.5 Hyperkalemia; N18.9 Chronic kidney disease, unspecified; I25.10 Atherosclerotic heart disease of native coronary artery without angina pectoris; Z95.1 Presence of aortocoronary bypass graft; G89.29 Other chronic pain; I44.0 Atrioventricular block, first degree; E11.22 Type 2 diabetes mellitus with diabetic chronic kidney disease; M10.9 Gout, unspecified; G25.81 Restless legs syndrome; Z88.0 Allergy status to penicillin; I48.91 Unspecified atrial fibrillation; I45.10 Unspecified right bundle-branch block; D63.1 Anemia in chronic kidney disease; E66.01 Morbid (severe) obesity due to excess calories; C62.90 Malignant neoplasm of unspecified testis, unspecified whether descended or undescended; E11.65 Type 2 diabetes mellitus with hyperglycemia; Z79.84 Long term (current) use of oral hypoglycemic drugs; Z68.37 Body mass index [BMI] 37.0-37.9, adult
CPT/HCPCS: 36415; 71046-TC-FY; 76775-TC; 80048; 80053; 82550; 82553; 82962; 83540; 83550; 83735; 84100; 84484; 85025; 85610; 85730; 86850; 86900; 86901; 87040; 87070; 87205; 93005; 93010; 99285-25; J1644; U0003

== ENCOUNTER 2020-08-04 00:49 | Inpatient (IN) | payer BC, OTHER ==
[2020-08-04 00:58] VITALS: BMI 38.2
[2020-08-04] MEDS ORDERED: MEROPENEM 1 GM in DEXTROSE 5%-WATER 100 ML IVPB ONE (01:27)
[2020-08-04] MEDS ORDERED: VANCOMYCIN 1 GM in D5W (PRE-DOCKED) 1,000 MG/250 ML IVPB ONE (01:27)
[2020-08-04] MEDS ORDERED: ONDANSETRON 4 MG/2 ML VIAL IVPUSH ONE (01:27)
[2020-08-04] MEDS ORDERED: ONDANSETRON 4 MG/2 ML VIAL ONE (01:29)
[2020-08-04] MEDS ORDERED: morphine CARPU-JECT 4 MG/1 ML DISP.SYRIN IVPUSH ONE ×2 (01:29→03:39)
[2020-08-04] MEDS ORDERED: morphine SULFATE 4 MG/ML VIAL ONE ×2 (01:41→03:41)
[2020-08-04] MEDS ORDERED: VANCOMYCIN 1 GRAM (PRE-DOCKED) 1,000 MG/250 ML BAG IVPB ONE ×3 (01:42→15:23)
[2020-08-04 02:16] LABS: BASO % 0.8 % (0-2.0); EOS % 3.6 % (0-4.5); HEMATOCRIT 24.9 % (35.4-49); HEMOGLOBIN 8.1 GM/dL (11.7-16.9); LYMPH % 6.1 % (8-40); MCH 29.5 pg (25.7-33.7); MCHC 32.4 g/dl (32.0-35.9); MEAN CELL VOLUME 91.2 fl (80-96); MEAN PLT VOLUME 8.2 fl (7.5-11.1); MONO % 8.1 % (3.8-10.2); NEUT % 81.4 % (42.8-82.8); PLATELET COUNT 242 K/MM3 (134-434); RBC 2.73 M/mm3 (4.00-5.60); RDW 17.5 % (11.9-15.9)
[2020-08-04 02:18] LABS: VENOUS BASE EXCESS -6.2 mmol/L (-2-2); VENOUS O2 SATURATION 20.3 % (70-80); VENOUS PCO2 53.5 mmHg (38-52); VENOUS PH 7.225 (7.310-7.410)
[2020-08-04 02:36] LABS: INR 1.04 (0.83-1.09); PROTHROMBIN TIME (PATIENT) 12.6 SEC (9.7-13.0)
[2020-08-04 02:38] LABS: ACTIVATED PTT 29.5 SECONDS (25.2-36.5)
[2020-08-04 02:53] LABS: CHLORIDE 108 mmol/L (98-107); SODIUM 138 mmol/L (136-145)
[2020-08-04 02:56] LABS: ALBUMIN 3.4 g/dl (3.4-5.0); CALCIUM 9.4 mg/dL (8.5-10.1); CO2 18 mmol/L (21-32)
[2020-08-04 02:57] LABS: BLOOD UREA NITROGEN 100.5 mg/dL (7-18); GLUCOSE,RANDOM 159 mg/dL (74-106)
[2020-08-04 02:59] LABS: SGPT/ALT 20 U/L (13-61)
[2020-08-04 03:00] LABS: SGOT/AST 34 U/L (15-37)
[2020-08-04 03:01] LABS: BILIRUBIN,TOTAL 0.5 mg/dL (0.2-1); TOT PROT 7.5 g/dl (6.4-8.2)
[2020-08-04 03:02] LABS: ALK PHOS 88 U/L (45-117)
[2020-08-04 03:04] LABS: ANION GAP 11 MMOL/L (8-16); N-TERMINAL BNP 1448.1 pg/ml (5-125)
[2020-08-04 03:07] LABS: POTASSIUM 7.4 mmol/L (3.5-5.1)
[2020-08-04 03:40] LABS: EPI CELLS 2 /uL (0-25.1); HYALINE CASTS 1 /uL (0-3.1); URINE APPEARANCE CLOUDY; URINE BACTERIA 415 /uL (0-1359); URINE BILIRUBIN NEGATIVE (NEGATIVE); URINE COLOR YELLOW; URINE GLUCOSE (UA) NEGATIVE (NEGATIVE); URINE KETONE NEGATIVE (NEGATIVE); URINE LEUK ESTERASE NEGATIVE (NEGATIVE); URINE NITRITE NEGATIVE (NEGATIVE); URINE PROTEIN 3+ (NEGATIVE); URINE RBC 9 /uL (0-23.9); URINE UROBILINOGEN 0.2 mg/dL (0.2-1.0)
[2020-08-04 03:45] LABS: LDH 403 U/L (87-246)
[2020-08-04] MEDS ORDERED: DEXTROSE 50%-WATER - 25 GM/50 ML VIAL IVPUSH ONE ×2 (03:58→20:39)
[2020-08-04] MEDS ORDERED: INSULIN REGULAR HUMAN 100 UNITS/ML *VIAL IVPUSH ONE ×2 (03:58→20:38)
[2020-08-04] MEDS ORDERED: SODIUM BICARBONATE 8.4% 50 MEQ/50 ML DISP.SYRIN IVPUSH ONE (03:58)
[2020-08-04] MEDS ORDERED: DEXTROSE 50%-WATER - 25 GM/50 ML VIAL ONE ×2 (04:16→21:21)
[2020-08-04] MEDS ORDERED: SODIUM BICARBONATE 8.4% - 50 ML ONE (04:17)
[2020-08-04] MEDS ORDERED: APIXABAN 2.5 MG TABLET PO ONE (05:14)
[2020-08-04 05:55] LABS: POTASSIUM 5.9 mmol/L (3.5-5.1)
[2020-08-04 05:56] LABS: BLOOD UREA NITROGEN 102.4 mg/dL (7-18); CALCIUM 8.9 mg/dL (8.5-10.1)
[2020-08-04] MEDS ORDERED: APIXABAN 2.5 MG TABLET ONE (05:59)
[2020-08-04 06:00] LABS: CREATININE 4.9 mg/dL (0.55-1.3)
[2020-08-04] MEDS ORDERED: HEPARIN NA (PORCINE) 5,000 UNITS/ML 1ML VIAL IVPUSH ONE (09:14)
[2020-08-04] MEDS ORDERED: HEPARIN NA (PORCINE) 5,000 UNITS/ML 1ML VIAL IVPUSH PRN ×2 (09:14)
[2020-08-04] MEDS ORDERED: oxyCODONE HCL 5 MG TABLET PO PRN (09:17)
[2020-08-04] MEDS ORDERED: SENNOSIDES/DOCUSATE COMBO (SENNA PLUS) TABLET (UD) PO SCH (10:00)
[2020-08-04] MEDS ORDERED: SODIUM ZIRCONIUM CYCLOSILICATE (LOKELMA) 10 GM PACKET PO SCH (10:00)
[2020-08-04] MEDS ORDERED: GLYCERIN 1 RECTAL SUPPOSITORY, ADULT RC SCH (10:00)
[2020-08-04] MEDS ORDERED: LOSARTAN POTASSIUM 50 MG TABLET PO SCH (10:00)
[2020-08-04] MEDS ORDERED: oxyCODONE HCL 10 MG SUSTAINED ACTING TABLET PO SCH (10:00)
[2020-08-04] MEDS ORDERED: GLYCERIN 1 RECTAL SUPPOSITORY, ADULT RC PRN (10:12)
[2020-08-04] MEDS ORDERED: AZTREONAM 1 GM in DEXTROSE 5%-WATER - 50 ML IVPB SCH (10:30)
[2020-08-04] MEDS ORDERED: amLODIPine BESYLATE 5 MG TABLET (FP) ONE (10:49)
[2020-08-04] MEDS ORDERED: LEVOTHYROXINE NA 25 MCG TABLET (FP) ONE (10:50)
[2020-08-04] MEDS ORDERED: AZTREONAM 1 GM VIAL (RESTRICTED TO ID) ONE (10:50)
[2020-08-04] MEDS ORDERED: LOSARTAN POTASSIUM 50 MG TABLET ONE (10:50)
[2020-08-04] MEDS ORDERED: HEPARIN NA (PORCINE) 5,000 UNITS/ML 1ML VIAL ONE (10:51)
[2020-08-04] MEDS ORDERED: HEPARIN INFUSION - 25,000 UNITS/500 ML INFUS.BAG IVPB ONE (10:51)
[2020-08-04] MEDS ORDERED: DULoxetine HCL 30 MG CAPSULE.DR PO ONE ×2 (10:51→15:23)
[2020-08-04] MEDS ORDERED: DOCUSATE SODIUM 100 MG CAPSULE (FP) PO ONE (10:51)
[2020-08-04] MEDS ORDERED: FERROUS SO4 325 MG TABLET (FP) ONE ×2 (10:51→15:23)
[2020-08-04] MEDS ORDERED: oxyCODONE HCL 5 MG TABLET ONE (10:53)
[2020-08-04] MEDS: HEPARIN INFUSION - 25,000 UNITS/500 ML INFUS.BAG IVPB SCH (11:40)
[2020-08-04] MEDS: DOCUSATE SODIUM 100 MG CAPSULE (FP) PO SCH (12:00)
[2020-08-04] MEDS: LEVOTHYROXINE NA 25 MCG TABLET (FP) PO SCH (12:00)
[2020-08-04] MEDS: oxyCODONE HCL 5 MG TABLET PO PRN (12:51)
[2020-08-04] MEDS: HYDROCORTISONE 2.5% TOPICAL CREAM 30 GM TUBE TP SCH (12:52)
[2020-08-04] MEDS: amLODIPine BESYLATE 5 MG TABLET (FP) PO SCH (12:53)
[2020-08-04] MEDS: OMEGA-3 ACID ETHYL ESTERS (FATTY-ACIDS) 1 GM CAPSULE (FP) PO SCH (12:53)
[2020-08-04] MEDS: CHOLECALCIFEROL (VIT D3) 1,000 UNIT (25 MCG) TABLET PO SCH (12:54)
[2020-08-04 14:46] LABS: CALCIUM 9.5 mg/dL (8.5-10.1)
[2020-08-04 14:47] LABS: BLOOD UREA NITROGEN 102.5 mg/dL (7-18)
[2020-08-04 14:50] LABS: CREATININE 5.1 mg/dL (0.55-1.3)
[2020-08-04] MEDS ORDERED: AZTREONAM 2 GM in DEXTROSE 5%-WATER 100 ML IVPB SCH (15:00)
[2020-08-04 15:15] LABS: POTASSIUM 6.1 mmol/L (3.5-5.1)
[2020-08-04] MEDS ORDERED: CARVEDILOL 12.5 MG TABLET (FP) ONE ×2 (15:23→21:21)
[2020-08-04] MEDS: FERROUS SO4 325 MG TABLET (FP) PO SCH (15:49)
[2020-08-04] MEDS: DULoxetine HCL 30 MG CAPSULE.DR PO SCH (15:49)
[2020-08-04] MEDS: CARVEDILOL 12.5 MG TABLET (FP) PO SCH ×2 (15:49→22:36)
[2020-08-04] MEDS ORDERED: oxyCODONE HCL 10 MG SUSTAINED ACTING TABLET ONE (17:07)
[2020-08-04] MEDS: oxyCODONE HCL 10 MG SUSTAINED ACTING TABLET PO SCH (17:30)
[2020-08-04 19:09] LABS: BLOOD UREA NITROGEN 102.7 mg/dL (7-18); CALCIUM 9.3 mg/dL (8.5-10.1)
[2020-08-04 19:18] LABS: CREATININE 5.1 mg/dL (0.55-1.3)
[2020-08-04] MEDS ORDERED: CALCIUM GLUCONATE 10% - 1,000 MG/10 ML VIAL IVPUSH ONE (20:27)
[2020-08-04] MEDS ORDERED: FUROSEMIDE 40 MG/4 ML INJECTABLE VIAL IVPUSH ONE (20:34)
[2020-08-04] MEDS ORDERED: SODIUM CHLORIDE 0.45% 1,000 ML IV ONE (20:36)
[2020-08-04] MEDS ORDERED: CALCIUM GLUCONATE 10% - 1,000 MG/10 ML VIAL ONE (20:39)
[2020-08-04] MEDS ORDERED: SODIUM ZIRCONIUM CYCLOSILICATE (LOKELMA) 5 GM PACKET PO ONE (20:43)
[2020-08-04] MEDS ORDERED: SODIUM ZIRCONIUM CYCLOSILICATE (LOKELMA) 5 GM PACKET PO SCH (20:45)
[2020-08-04] MEDS ORDERED: FUROSEMIDE 40 MG/4 ML INJECTABLE VIAL ONE (21:22)
[2020-08-04] MEDS ORDERED: SODIUM ZIRCONIUM CYCLOSILICATE (LOKELMA) 5 GM PACKET ONE (21:22)
[2020-08-04] MEDS ORDERED: INSULIN REGULAR HUMAN 100 UNITS/ML *VIAL ONE (22:03)
[2020-08-04] MEDS: CEFEPIME 0.5 GM in DEXTROSE 5%-WATER - 100 ML IVPB SCH (22:36)
[2020-08-04] MEDS: NITROGLYCERIN 0.4 MG/HOUR TD PATCH TD SCH (22:36)
[2020-08-05] MEDS: oxyCODONE HCL 5 MG TABLET PO PRN ×2 (01:29→17:07)
[2020-08-05] MEDS: oxyCODONE HCL 10 MG SUSTAINED ACTING TABLET PO SCH ×3 (02:07→22:21)
[2020-08-05 06:07] LABS: BASO % 0.4 % (0-2.0); EOS % 1.7 % (0-4.5); HEMATOCRIT 22.4 % (35.4-49); HEMOGLOBIN 7.3 GM/dL (11.7-16.9); LYMPH % 5.9 % (8-40); MCH 29.3 pg (25.7-33.7); MCHC 32.4 g/dl (32.0-35.9); MEAN CELL VOLUME 90.4 fl (80-96); MEAN PLT VOLUME 7.9 fl (7.5-11.1); MONO % 8.4 % (3.8-10.2); NEUT % 83.6 % (42.8-82.8); PLATELET COUNT 200 K/MM3 (134-434); RBC 2.47 M/mm3 (4.00-5.60); RDW 17.8 % (11.9-15.9); WHITE BLOOD COUNT 14.3 K/mm3 (4.0-10.0)
[2020-08-05 06:15] LABS: INR 1.27 (0.83-1.09); PROTHROMBIN TIME (PATIENT) 15.5 SEC (9.7-13.0)
[2020-08-05 06:18] LABS: ACTIVATED PTT 82.4 SECONDS (25.2-36.5)
[2020-08-05] MEDS: LEVOTHYROXINE NA 25 MCG TABLET (FP) PO SCH (07:05)
[2020-08-05 07:20] LABS: ALBUMIN 2.8 g/dl (3.4-5.0); BILIRUBIN,TOTAL 0.5 mg/dL (0.2-1); BLOOD UREA NITROGEN 103.4 mg/dL (7-18); CALCIUM 8.6 mg/dL (8.5-10.1); CREATININE 5.2 mg/dL (0.55-1.3); MAGNESIUM 2.3 mg/dL (1.8-2.4); PHOSPHOROUS 7.3 mg/dL (2.5-4.9); TOT PROT 6.3 g/dl (6.4-8.2)
[2020-08-05 07:22] LABS: POTASSIUM 6.3 mmol/L (3.5-5.1)
[2020-08-05] MEDS: HEPARIN INFUSION - 25,000 UNITS/500 ML INFUS.BAG IVPB SCH (09:15)
[2020-08-05] MEDS ORDERED: SODIUM ZIRCONIUM CYCLOSILICATE (LOKELMA) 5 GM PACKET PO SCH (10:00)
[2020-08-05] MEDS ORDERED: AZTREONAM 1 GM in DEXTROSE 5%-WATER - 50 ML IVPB SCH (10:00)
[2020-08-05] MEDS ORDERED: PT OWN MED DRAWER 7, Y5N ONE ×3 (11:34→20:18)
[2020-08-05] MEDS: DOCUSATE SODIUM 100 MG CAPSULE (FP) PO SCH (11:37)
[2020-08-05] MEDS: OMEGA-3 ACID ETHYL ESTERS (FATTY-ACIDS) 1 GM CAPSULE (FP) PO SCH (11:37)
[2020-08-05] MEDS: CARVEDILOL 12.5 MG TABLET (FP) PO SCH ×2 (11:38→22:18)
[2020-08-05] MEDS: DULoxetine HCL 30 MG CAPSULE.DR PO SCH (11:38)
[2020-08-05] MEDS: CHOLECALCIFEROL (VIT D3) 1,000 UNIT (25 MCG) TABLET PO SCH (11:38)
[2020-08-05] MEDS: amLODIPine BESYLATE 5 MG TABLET (FP) PO SCH (11:38)
[2020-08-05] MEDS: CEFEPIME 0.5 GM in DEXTROSE 5%-WATER - 100 ML IVPB SCH ×2 (11:38→22:19)
[2020-08-05] MEDS: FERROUS SO4 325 MG TABLET (FP) PO SCH (11:38)
[2020-08-05] MEDS: SENNOSIDES/DOCUSATE COMBO (SENNA PLUS) TABLET (UD) PO SCH (11:42)
[2020-08-05] MEDS ORDERED: FUROSEMIDE 40 MG/4 ML INJECTABLE VIAL IVPUSH ONE (12:58)
[2020-08-05] MEDS: HYDROCORTISONE 2.5% TOPICAL CREAM 30 GM TUBE TP SCH (14:59)
[2020-08-05] MEDS ORDERED: SODIUM ZIRCONIUM CYCLOSILICATE (LOKELMA) 5 GM PACKET PO ONE ×2 (16:00→20:30)
[2020-08-05] MEDS ORDERED: SODIUM ZIRCONIUM CYCLOSILICATE (LOKELMA) 10 GM PACKET PO ONE (20:00)
[2020-08-05] MEDS: NITROGLYCERIN 0.4 MG/HOUR TD PATCH TD SCH (22:22)
[2020-08-05] MEDS: ACETAMINOPHEN 500 MG TABLET (FP) PO SCH (22:24)
[2020-08-06] MEDS: oxyCODONE HCL 5 MG TABLET PO PRN (06:25)
[2020-08-06] MEDS: LEVOTHYROXINE NA 25 MCG TABLET (FP) PO SCH (06:25)
[2020-08-06] MEDS: ACETAMINOPHEN 500 MG TABLET (FP) PO SCH ×3 (06:26→22:18)
[2020-08-06] MEDS ORDERED: SODIUM ZIRCONIUM CYCLOSILICATE (LOKELMA) 5 GM PACKET PO SCH (08:00)
[2020-08-06] MEDS ORDERED: LIDOCAINE 5% TOPICAL PATCH TP SCH (10:00)
[2020-08-06] MEDS: CHOLECALCIFEROL (VIT D3) 1,000 UNIT (25 MCG) TABLET PO SCH (10:53)
[2020-08-06] MEDS: OMEGA-3 ACID ETHYL ESTERS (FATTY-ACIDS) 1 GM CAPSULE (FP) PO SCH (10:53)
[2020-08-06] MEDS: DOCUSATE SODIUM 100 MG CAPSULE (FP) PO SCH (10:53)
[2020-08-06] MEDS: DULoxetine HCL 30 MG CAPSULE.DR PO SCH (10:53)
[2020-08-06] MEDS: FERROUS SO4 325 MG TABLET (FP) PO SCH (10:53)
[2020-08-06] MEDS: CARVEDILOL 12.5 MG TABLET (FP) PO SCH ×2 (10:53→22:18)
[2020-08-06] MEDS: amLODIPine BESYLATE 5 MG TABLET (FP) PO SCH (10:53)
[2020-08-06] MEDS: SENNOSIDES/DOCUSATE COMBO (SENNA PLUS) TABLET (UD) PO SCH (10:53)
[2020-08-06] MEDS: oxyCODONE HCL 10 MG SUSTAINED ACTING TABLET PO SCH ×2 (10:58→22:17)
[2020-08-06] MEDS: CEFEPIME 0.5 GM in DEXTROSE 5%-WATER - 100 ML IVPB SCH ×2 (12:00→22:17)
[2020-08-06] MEDS: HEPARIN INFUSION - 25,000 UNITS/500 ML INFUS.BAG IVPB SCH (12:23)
[2020-08-06] MEDS ORDERED: PT OWN MED DRAWER 7, Y5N ONE ×2 (14:18→22:14)
[2020-08-06] MEDS: HYDROCORTISONE 2.5% TOPICAL CREAM 30 GM TUBE TP SCH (14:21)
[2020-08-06 18:14] LABS: BASO % 0.6 % (0-2.0); HEMATOCRIT 21.6 % (35.4-49); MCH 29.2 pg (25.7-33.7); MCHC 31.9 g/dl (32.0-35.9); MEAN CELL VOLUME 91.3 fl (80-96); MEAN PLT VOLUME 8.1 fl (7.5-11.1); MONO % 8.8 % (3.8-10.2); NEUT % 79.6 % (42.8-82.8); PLATELET COUNT 190 K/MM3 (134-434); RBC 2.37 M/mm3 (4.00-5.60); RDW 17.3 % (11.9-15.9); WHITE BLOOD COUNT 11.4 K/mm3 (4.0-10.0)
[2020-08-06 18:18] LABS: HEMOGLOBIN 6.9 GM/dL (11.7-16.9)
[2020-08-06 18:31] LABS: POTASSIUM 5.6 mmol/L (3.5-5.1)
[2020-08-06 18:32] LABS: CALCIUM 8.8 mg/dL (8.5-10.1)
[2020-08-06 19:05] LABS: BLOOD UREA NITROGEN 119.9 mg/dL (7-18)
[2020-08-06] MEDS ORDERED: GLYCERIN 1 RECTAL SUPPOSITORY, ADULT RC PRN (20:42)
[2020-08-06] MEDS ORDERED: HEPARIN NA (PORCINE) 5,000 UNITS/ML 1ML VIAL IVPUSH PRN ×4 (20:42)
[2020-08-06] MEDS ORDERED: HEPARIN INFUSION - 25,000 UNITS/500 ML INFUS.BAG IVPB SCH (20:42)
[2020-08-06] MEDS ORDERED: LIDOCAINE PATCH REMOVAL MC SCH ×2 (22:00)
[2020-08-06] MEDS: NITROGLYCERIN 0.4 MG/HOUR TD PATCH TD SCH (22:17)
[2020-08-06] MEDS: LIDOCAINE PATCH REMOVAL MC SCH (22:19)
[2020-08-07] MEDS: ACETAMINOPHEN 500 MG TABLET (FP) PO SCH ×3 (06:26→22:06)
[2020-08-07] MEDS: LEVOTHYROXINE NA 25 MCG TABLET (FP) PO SCH (06:27)
[2020-08-07] MEDS ORDERED: SODIUM ZIRCONIUM CYCLOSILICATE (LOKELMA) 5 GM PACKET PO SCH (08:00)
[2020-08-07] MEDS ORDERED: PT OWN MED DRAWER 7, Y5N ONE ×2 (09:15→22:09)
[2020-08-07] MEDS ORDERED: morphine CARPU-JECT 4 MG/1 ML DISP.SYRIN IVPUSH PRN (09:27)
[2020-08-07] MEDS ORDERED: MORPHINE SULFATE 2 MG/ML VIAL IVPUSH PRN (09:54)
[2020-08-07] MEDS: DOCUSATE SODIUM 100 MG CAPSULE (FP) PO SCH (09:55)
[2020-08-07] MEDS: HYDROCORTISONE 2.5% TOPICAL CREAM 30 GM TUBE TP SCH (09:55)
[2020-08-07] MEDS: LIDOCAINE 5% TOPICAL PATCH TP SCH (09:55)
[2020-08-07] MEDS: FERROUS SO4 325 MG TABLET (FP) PO SCH (09:55)
[2020-08-07] MEDS: CARVEDILOL 12.5 MG TABLET (FP) PO SCH ×2 (09:55→22:06)
[2020-08-07] MEDS: DULoxetine HCL 30 MG CAPSULE.DR PO SCH (09:55)
[2020-08-07] MEDS: CHOLECALCIFEROL (VIT D3) 1,000 UNIT (25 MCG) TABLET PO SCH (09:56)
[2020-08-07] MEDS: amLODIPine BESYLATE 5 MG TABLET (FP) PO SCH (09:56)
[2020-08-07] MEDS: oxyCODONE HCL 10 MG SUSTAINED ACTING TABLET PO SCH ×2 (09:56→22:06)
[2020-08-07] MEDS: OMEGA-3 ACID ETHYL ESTERS (FATTY-ACIDS) 1 GM CAPSULE (FP) PO SCH (09:56)
[2020-08-07] MEDS: SENNOSIDES/DOCUSATE COMBO (SENNA PLUS) TABLET (UD) PO SCH (09:56)
[2020-08-07] MEDS: SODIUM ZIRCONIUM CYCLOSILICATE (LOKELMA) 5 GM PACKET PO SCH (09:56)
[2020-08-07] MEDS: CEFEPIME 0.5 GM in DEXTROSE 5%-WATER - 100 ML IVPB SCH (10:04)
[2020-08-07] MEDS: morphine SULFATE 4 MG/ML VIAL IVPUSH PRN (22:05)
[2020-08-07] MEDS: NITROGLYCERIN 0.4 MG/HOUR TD PATCH TD SCH (22:06)
[2020-08-07] MEDS: LIDOCAINE PATCH REMOVAL MC SCH (22:06)
[2020-08-08] MEDS: morphine SULFATE 4 MG/ML VIAL IVPUSH PRN ×3 (01:01→16:37)
[2020-08-08] MEDS ORDERED: MORPHINE SULFATE 2 MG/ML VIAL IVPUSH ONE (02:10)
[2020-08-08] MEDS: ACETAMINOPHEN 500 MG TABLET (FP) PO SCH ×3 (05:35→22:39)
[2020-08-08] MEDS: LEVOTHYROXINE NA 25 MCG TABLET (FP) PO SCH (07:42)
[2020-08-08] MEDS: DOCUSATE SODIUM 100 MG CAPSULE (FP) PO SCH ×2 (10:01→15:17)
[2020-08-08] MEDS: HYDROCORTISONE 2.5% TOPICAL CREAM 30 GM TUBE TP SCH (10:01)
[2020-08-08] MEDS: SODIUM ZIRCONIUM CYCLOSILICATE (LOKELMA) 5 GM PACKET PO SCH (10:02)
[2020-08-08] MEDS: OMEGA-3 ACID ETHYL ESTERS (FATTY-ACIDS) 1 GM CAPSULE (FP) PO SCH (10:02)
[2020-08-08] MEDS: oxyCODONE HCL 10 MG SUSTAINED ACTING TABLET PO SCH ×2 (10:02→22:38)
[2020-08-08] MEDS: FERROUS SO4 325 MG TABLET (FP) PO SCH (10:02)
[2020-08-08] MEDS: SENNOSIDES/DOCUSATE COMBO (SENNA PLUS) TABLET (UD) PO SCH ×2 (10:02→15:18)
[2020-08-08] MEDS: DULoxetine HCL 30 MG CAPSULE.DR PO SCH (10:02)
[2020-08-08] MEDS: LIDOCAINE 5% TOPICAL PATCH TP SCH (10:02)
[2020-08-08] MEDS: CARVEDILOL 12.5 MG TABLET (FP) PO SCH ×3 (10:02→22:34)
[2020-08-08] MEDS: amLODIPine BESYLATE 5 MG TABLET (FP) PO SCH ×2 (10:02→15:17)
[2020-08-08] MEDS: CHOLECALCIFEROL (VIT D3) 1,000 UNIT (25 MCG) TABLET PO SCH (10:03)
[2020-08-08] MEDS: LIDOCAINE PATCH REMOVAL MC SCH (22:35)
[2020-08-08] MEDS: NITROGLYCERIN 0.4 MG/HOUR TD PATCH TD SCH (22:37)
[2020-08-08] MEDS ORDERED: PT OWN MED DRAWER 7, Y5N ONE (22:37)
[2020-08-09] MEDS: morphine SULFATE 4 MG/ML VIAL IVPUSH PRN ×5 (01:19→23:18)
[2020-08-09] MEDS: ACETAMINOPHEN 500 MG TABLET (FP) PO SCH ×4 (06:54→21:39)
[2020-08-09] MEDS: LEVOTHYROXINE NA 25 MCG TABLET (FP) PO SCH (06:54)
[2020-08-09] MEDS: HYDROCORTISONE 2.5% TOPICAL CREAM 30 GM TUBE TP SCH (09:31)
[2020-08-09] MEDS: DULoxetine HCL 30 MG CAPSULE.DR PO SCH ×2 (09:32→12:54)
[2020-08-09] MEDS: FERROUS SO4 325 MG TABLET (FP) PO SCH (09:32)
[2020-08-09] MEDS: CARVEDILOL 12.5 MG TABLET (FP) PO SCH ×3 (09:32→21:39)
[2020-08-09] MEDS: DOCUSATE SODIUM 100 MG CAPSULE (FP) PO SCH (09:32)
[2020-08-09] MEDS: LIDOCAINE 5% TOPICAL PATCH TP SCH (09:32)
[2020-08-09] MEDS: SODIUM ZIRCONIUM CYCLOSILICATE (LOKELMA) 5 GM PACKET PO SCH (09:32)
[2020-08-09] MEDS: CHOLECALCIFEROL (VIT D3) 1,000 UNIT (25 MCG) TABLET PO SCH (09:33)
[2020-08-09] MEDS: amLODIPine BESYLATE 5 MG TABLET (FP) PO SCH ×2 (09:33→12:54)
[2020-08-09] MEDS: OMEGA-3 ACID ETHYL ESTERS (FATTY-ACIDS) 1 GM CAPSULE (FP) PO SCH (09:33)
[2020-08-09] MEDS: oxyCODONE HCL 10 MG SUSTAINED ACTING TABLET PO SCH ×2 (09:33→21:39)
[2020-08-09] MEDS: SENNOSIDES/DOCUSATE COMBO (SENNA PLUS) TABLET (UD) PO SCH (09:33)
[2020-08-09] MEDS: oxyCODONE HCL 5 MG TABLET PO PRN (12:53)
[2020-08-09] MEDS: NITROGLYCERIN 0.4 MG/HOUR TD PATCH TD SCH (21:39)
[2020-08-09] MEDS: LIDOCAINE PATCH REMOVAL MC SCH (21:41)
[2020-08-10] MEDS: ACETAMINOPHEN 500 MG TABLET (FP) PO SCH ×4 (05:42→22:08)
[2020-08-10] MEDS: LEVOTHYROXINE NA 25 MCG TABLET (FP) PO SCH (06:24)
[2020-08-10] MEDS: oxyCODONE HCL 10 MG SUSTAINED ACTING TABLET PO SCH ×3 (10:21→22:07)
[2020-08-10] MEDS: amLODIPine BESYLATE 5 MG TABLET (FP) PO SCH (10:22)
[2020-08-10] MEDS: CARVEDILOL 12.5 MG TABLET (FP) PO SCH ×3 (10:22→22:08)
[2020-08-10] MEDS: DULoxetine HCL 30 MG CAPSULE.DR PO SCH (10:22)
[2020-08-10] MEDS: DOCUSATE SODIUM 100 MG CAPSULE (FP) PO SCH (10:25)
[2020-08-10] MEDS: HYDROCORTISONE 2.5% TOPICAL CREAM 30 GM TUBE TP SCH (10:25)
[2020-08-10] MEDS: OMEGA-3 ACID ETHYL ESTERS (FATTY-ACIDS) 1 GM CAPSULE (FP) PO SCH (10:26)
[2020-08-10] MEDS: SENNOSIDES/DOCUSATE COMBO (SENNA PLUS) TABLET (UD) PO SCH (10:26)
[2020-08-10] MEDS: FERROUS SO4 325 MG TABLET (FP) PO SCH (10:26)
[2020-08-10] MEDS: SODIUM ZIRCONIUM CYCLOSILICATE (LOKELMA) 5 GM PACKET PO SCH (10:26)
[2020-08-10] MEDS: LIDOCAINE 5% TOPICAL PATCH TP SCH (10:26)
[2020-08-10] MEDS: CHOLECALCIFEROL (VIT D3) 1,000 UNIT (25 MCG) TABLET PO SCH (10:26)
[2020-08-10] MEDS ORDERED: morphine SULFATE 4 MG/ML VIAL IVPUSH PRN (10:44)
[2020-08-10] MEDS ORDERED: amLODIPine BESYLATE 5 MG TABLET (FP) PO ONE (18:27)
[2020-08-10] MEDS ORDERED: PT OWN MED DRAWER 7, Y5N ONE (21:04)
[2020-08-10] MEDS: NITROGLYCERIN 0.4 MG/HOUR TD PATCH TD SCH (21:28)
[2020-08-10] MEDS: LIDOCAINE PATCH REMOVAL MC SCH (21:29)
[2020-08-10] MEDS: oxyCODONE HCL 5 MG TABLET PO PRN (22:06)
[2020-08-11] MEDS: ACETAMINOPHEN 500 MG TABLET (FP) PO SCH ×2 (06:03→15:57)
[2020-08-11] MEDS: LEVOTHYROXINE NA 25 MCG TABLET (FP) PO SCH (06:03)
[2020-08-11] MEDS: oxyCODONE HCL 10 MG SUSTAINED ACTING TABLET PO SCH (09:42)
[2020-08-11] MEDS: CARVEDILOL 12.5 MG TABLET (FP) PO SCH (09:44)
[2020-08-11] MEDS: amLODIPine BESYLATE 5 MG TABLET (FP) PO SCH (09:44)
[2020-08-11] MEDS: HYDROCORTISONE 2.5% TOPICAL CREAM 30 GM TUBE TP SCH (09:44)
[2020-08-11] MEDS: LIDOCAINE 5% TOPICAL PATCH TP SCH (09:45)
[2020-08-11] MEDS: FERROUS SO4 325 MG TABLET (FP) PO SCH (09:45)
[2020-08-11] MEDS: DOCUSATE SODIUM 100 MG CAPSULE (FP) PO SCH (09:45)
[2020-08-11] MEDS: OMEGA-3 ACID ETHYL ESTERS (FATTY-ACIDS) 1 GM CAPSULE (FP) PO SCH (09:45)
[2020-08-11] MEDS: SODIUM ZIRCONIUM CYCLOSILICATE (LOKELMA) 5 GM PACKET PO SCH (09:45)
[2020-08-11] MEDS: DULoxetine HCL 30 MG CAPSULE.DR PO SCH (09:45)
[2020-08-11] MEDS: SENNOSIDES/DOCUSATE COMBO (SENNA PLUS) TABLET (UD) PO SCH (09:45)
[2020-08-11] MEDS: CHOLECALCIFEROL (VIT D3) 1,000 UNIT (25 MCG) TABLET PO SCH (09:46)
[2020-08-11 10:53] VITALS: BP 182/79; PULSE 96
[2020-08-11] MEDS ORDERED: FAMOTIDINE 20 MG/50 ML IVPB 20 MG/50 ML MG IVPB ONE (14:25)
[2020-08-11] MEDS ORDERED: ACETAMINOPHEN 325 MG TABLET (FP) PO ONE (14:34)
[2020-08-11] MEDS ORDERED: MORPHINE SULFATE 2 MG/ML VIAL IVPUSH ONE (14:35)
[2020-08-11 14:46] VITALS: TEMP 101.1
[2020-08-11] MEDS ORDERED: LORazepam 2 MG/ML SDV VIAL IVPUSH ONE (14:57)
[2020-08-11] MEDS ORDERED: ACETAMINOPHEN 1000 MG/100 ML VIAL (NON FORMULARY) IVPB PRN (15:14)
== END 2020-08-11 19:26 | disposition expired | DRG 871 ==
LOC: JER 00:49 → JERBED 04:01 → J4W 08-05 01:14 → J7W 08-11 11:47
PROVIDERS: ADMIT Internal Medicine; ATTEND Student in an Organized Health Care Education/Training Program
DX: A41.89 Other specified sepsis (principal); J18.9 Pneumonia, unspecified organism; J96.01 Acute respiratory failure with hypoxia; I13.0 Hypertensive heart and chronic kidney disease with heart failure and stage 1 through stage 4 chronic kidney disease, or unspecified chronic kidney disease; I50.30 Unspecified diastolic (congestive) heart failure; I25.10 Atherosclerotic heart disease of native coronary artery without angina pectoris; I48.91 Unspecified atrial fibrillation; G89.29 Other chronic pain; G25.81 Restless legs syndrome; M10.9 Gout, unspecified; R16.1 Splenomegaly, not elsewhere classified; I25.2 Old myocardial infarction; R16.2 Hepatomegaly with splenomegaly, not elsewhere classified; E78.5 Hyperlipidemia, unspecified; D63.1 Anemia in chronic kidney disease; D72.829 Elevated white blood cell count, unspecified; E11.22 Type 2 diabetes mellitus with diabetic chronic kidney disease; N18.9 Chronic kidney disease, unspecified; K58.9 Irritable bowel syndrome, unspecified; M54.5 Low back pain; M54.30 Sciatica, unspecified side; F32.9 Major depressive disorder, single episode, unspecified; I46.9 Cardiac arrest, cause unspecified; F17.210 Nicotine dependence, cigarettes, uncomplicated; E66.9 Obesity, unspecified; Z68.38 Body mass index [BMI] 38.0-38.9, adult; E87.5 Hyperkalemia; E03.9 Hypothyroidism, unspecified; Z88.0 Allergy status to penicillin; Z95.1 Presence of aortocoronary bypass graft; Z85.47 Personal history of malignant neoplasm of testis; Z86.73 Personal history of transient ischemic attack (TIA), and cerebral infarction without residual deficits; Z53.29 Procedure and treatment not carried out because of patient's decision for other reasons; Z51.5 Encounter for palliative care; Z66 Do not resuscitate
CPT/HCPCS: 36415; 71250-TC; 74176-TC; 80048; 80053; 81003; 82728; 82803; 82962; 83605; 83615; 83735; 83880; 84100; 84484; 85025; 85379; 85610; 85730; 86140; 87040; 87086; 87804; 87899; 93005; 93010; 97116-GP; 97161-GP; 99291; 99292; C9803; J0131; J1644; U0003